=== PATIENT | female | born 1975 | race Caucasian/White ===

== ENCOUNTER 2016-03-30 15:45 | Emergency (ER) | payer OTHER ==
[2016-03-30] MEDS ORDERED: SODIUM CHLORIDE 0.9% 1,000 ML IV STA (16:51)
[2016-03-30] MEDS ORDERED: METOCLOPRAMIDE 5 MG/ML 2 ML VIAL IVP STA (16:51)
[2016-03-30] MEDS ORDERED: diphenhydrAMINE 50 MG/ML 1 ML VIAL IVP STA (16:51)
--- NOTE | 2016-03-30 16:51 | ED ---
General Adult HPI - General Chief complaint: Weakness Stated complaint: Weakness Time Seen by Provider: 03/30/16 16:33 Source: patient, RN notes reviewed Mode of arrival: wheelchair Limitations: no limitations - History of Present Illness Initial comments: 40-year-old female presents to the emergency department with a chief complaint of headache. Patient has a long history of migraines. Patient states she's had a migraine all day today. Patient states that she did not feel like she could come in but she had to come in to have a MRI done and when she is walking and she started to feel her headache get worse and worse she just started to feel such intense pain that almost made her fall down. Patient states that they then put her in a wheelchair and brought her here. Patient states she's having one of her typical migraines. Patient states that it is throbbing in her head. Patient does admit to history of stroke in the past and states that she does have left sided weakness from this. Patient states she does feel weakness to left thigh today but this is chronic there is no new or different changes to that. Patient states her headache is just making her feel very tired. Patient states that she is not currently having any other symptoms at this time. Patient denies any nausea or vomiting with this. Patient states that she was concerned due to the continued symptoms so she thought that she should be seen. Patient denies any recent fever, chills, shortness of breath, chest pain, back pain, abdominal pain, nausea vomiting, numbness or tingling, dysuria or hematuria, constipation or diarrhea, visual changes, or any other current symptoms. - Related Data Home Medications Medication Instructions Recorded Confirmed Butalb/APAP/Caff 50-325-40Mg 1 tab PO Q8H PRN 02/18/16 03/30/16 [Fioricet 50-325-40] Cyclobenzaprine [Flexeril] 10 mg PO HS 02/18/16 03/30/16 HYDROcodone/APAP 7.5-325MG [[place] 1 tab PO TID PRN 02/18/16 03/30/16 7.5-325] Meloxicam [Mobic] 15 mg PO DAILY 03/06/16 03/30/16 Verapamil HCl [Verapamil ER] 120 mg PO DAILY 03/06/16 03/30/16 Gabapentin [Neurontin] 300 mg PO BID PRN 03/30/16 03/30/16 Allergies Allergy/AdvReac Type Severity Reaction Status Date / Time codeine Allergy Unknown Verified 03/30/16 16:35 onion Allergy Unknown Verified 03/30/16 16:35 Review of Systems ROS Statement: Those systems with pertinent positive or pertinent negative responses have been documented in the HPI. ROS Other: All systems not noted in ROS Statement are negative. Past Medical History Past Medical History: CVA/TIA, GERD/Reflux, Osteoarthritis (OA) Additional Past Medical History / Comment(s): DDD. 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 Delgadillo's Esophagus. History of Any Multi-Drug Resistant Organisms: None Reported Past Surgical History: Appendectomy, Cholecystectomy, Hysterectomy, Tubal Ligation Additional Past Surgical History / Comment(s): PAIN CLINIC PROCEDURES Past Anesthesia/Blood Transfusion Reactions: No Reported Reaction Past Psychological History: No Psychological Hx Reported Smoking Status: Current every day smoker Past Alcohol Use History: Occasional Additional Past Alcohol Use History / Comment(s): STARTED SMOKING AGE 18 (1993) SMOKES 1/2 PPD Past Drug Use History: None Reported - Past Family History Mother Family Medical History: No Reported History General Exam - General Exam Comments Initial Comments: General: The patient is awake and alert, in no distress, and does not appear acutely ill. Eye: Pupils are equal, round and reactive to light, extra-ocular movements are intact; there is normal conjunctiva bilaterally. No signs of icterus. Ears, nose, mouth and throat: There are moist mucous membranes. Neck: The neck is supple, there is no tenderness. Cardiovascular: There is a regular rate and rhythm. No murmur, rub or gallop is appreciated. Respiratory: Lungs are clear to auscultation, respirations are non-labored, breath sounds are equal. No wheezes, stridor, rales, or rhonchi. Gastrointestinal: Soft, non-distended, non-tender abdomen without masses or organomegaly noted. There is no rebound or guarding present. No CVA tenderness. Bowel sounds are unremarkable. Back: There is no tenderness to palpation in the midline. There is no obvious deformity. No rashes noted. Musculoskeletal: Normal ROM, no tenderness, There is no pedal edema. There is no calf tenderness or swelling. Sensation intact. Pulses equal bilaterally 2+. Neurological: CN II-XII intact, There are no obvious motor or sensory deficits. Coordination appears grossly intact. Speech is normal. Left sided weakness which is chronic mild Skin: Skin is warm and dry and no rashes or lesions are noted. Psychiatric: Cooperative, appropriate mood & affect, normal judgment. Limitations: no limitations Course Vital Signs 03/30/16 03/30/16 15:54 16:51 Temperature 98.3 F 98.6 F Pulse Rate 115 H 95 Respiratory 18 16 Rate Blood Pressure 141/91 147/92 O2 Sat by Pulse 98 97 Oximetry Medical Decision Making - Medical Decision Making 40-year-old female presents emergency Department chief complaint of headache. Patient has a history migraine states is this is much like normal migraines which is making her feel weak and tired. Patient states that she is feeling better with the medication time. Patient MRI WAS REVIEWED THAT DID NOT SHOW ANY NEW FINDINGS IN THE BRAIN WELL HERNIATION IN THE NECK. PATIENT WAS INFORMED OF THIS RESULT. SHE STATES SHE SAW HER AND SHE IS READY NORMAL. HOWEVER QUESTIONS HAVE BEEN ANSWERED. SHE WILL BE DISCHARGED HOME. We did discuss return parameters and follow-up. Patient stated she understood. Disposition Clinical Impression: Migraine Disposition: HOME SELF-CARE Condition: Stable Instructions: Acute Headache (ED) Additional Instructions: Please use medication as discussed. Please follow up with family doctor if symptoms have not improved over the next two days. Please return to the emergency room if your symptoms increase or worsen or for any other concerns. Referrals: Malena Milner MD [Primary Care Provider] - 1-2 days Time of Disposition: 17:52
[2016-03-30 16:52] VITALS: RESP 16
[2016-03-30 17:53] VITALS: BP 118/74; PULSE 83; TEMP 98.2
== END 2016-03-30 18:03 | disposition home or self-care (01) ==
LOC: EC 15:45
DX: G43.909 Migraine, unspecified, not intractable, without status migrainosus (principal); I69.354 Hemiplegia and hemiparesis following cerebral infarction affecting left non-dominant side; M19.90 Unspecified osteoarthritis, unspecified site; F17.200 Nicotine dependence, unspecified, uncomplicated; Z79.1 Long term (current) use of non-steroidal anti-inflammatories (NSAID); Z79.899 Other long term (current) drug therapy; Z88.5 Allergy status to narcotic agent
CPT/HCPCS: 99284; 96374; 96375; 96361; J1200; J2765; 70553; 72156

== ENCOUNTER → 2016-03-30 | Outpatient (CLI) | payer OTHER ==
--- NOTE | 2016-03-30 17:33 | MR ---
History vision changes. Neck pain. History of MS. Comparison 12/10/2015 and 06/05/2015. TECHNIQUE: Multiplanar multi echo imaging of the brain was performed without and subsequently with intravenous c ontrast. The contrast was MultiHance 15 mL. FINDINGS: There is moderate mucosal thickening in the maxillary ethmoid and frontal sinuses. The fritz and white matter structures have fairly normal signal pattern. There is no evidence of cerebral edema. Corpus callosum appears normal. Brainstem is intact. Sella turcica appears normal. Contrast images show no p athologic enhancement. Pituitary stalk and optic chiasm appear normal. Ventricles of normal size. CONCLUSION: Negative MR scan of the brain. No evidence of demyelinating disease. No adverse change compared to . There is moderate sinusitis noted. This appears significantly worse than old exam of 12/10/19 16. MR cervical spine TECHNIQUE: Multiplanar multi echo imaging of the cervical spine was performed without and with IV contrast. IV c ontrast was MultiHance 15 mL. FINDINGS: The cervical vertebra have normal spacing and alignment. There are small posterior disc herniations a t C4-5 C5-6 C6-7 without significant impingement on the spinal canal. Cervical spinal cord has normal signal pattern. There is no evidence of edema. Brainstem appears normal. There is no spinal stenosis . I see no bony destructive process. There is no evidence of a cervical cord mass. There is no pathologic enhancement. CONCLUSION: Small posterior disc herniations at C4-5 C5-6 C6-7. The largest is at C6-7 on the left side. No signi ficant impingement on the cervical cord and neural foramina. There is no adverse change compared to o ld MR scan of 06/05/2015. No evidence of demyelinating disease.
== END | disposition home or self-care (01) ==
LOC: RADMRIMAIN 14:29
PROVIDERS: ATTEND Psychiatry & Neurology Pain Medicine
DX: M50.221 Other cervical disc displacement at C4-C5 level (principal); M50.222 Other cervical disc displacement at C5-C6 level; M50.23 Other cervical disc displacement, cervicothoracic region; H53.8 Other visual disturbances
CPT/HCPCS: 70553; 72156; A9577

== ENCOUNTER 2016-05-13 18:18 | Emergency (ER) | payer OTHER ==
[2016-05-13 18:22] VITALS: BP 153/73; PULSE 112; RESP 16; TEMP 97.7
[2016-05-13] MEDS ORDERED: LIDOCAINE 5% PATCH TOPICAL STA (18:38)
[2016-05-13] MEDS ORDERED: MORPHINE SULFATE 4 MG/ML SYRINGE IM STA (18:38)
[2016-05-13] MEDS ORDERED: DIAZEPAM 5 MG TAB PO STA (18:38)
[2016-05-13] MEDS ORDERED: KETOROLAC 30 MG/ML 1 ML VIAL IM STA (18:38)
--- NOTE | 2016-05-13 18:43 | ED ---
Back Pain HPI - General Chief Complaint: Back Pain/Injury Stated Complaint: LEFT SIDE/BACK PAIN, LEFT LEG PROBLEM Time Seen by Provider: 05/13/16 18:23 Source: patient Limitations: no limitations - History of Present Illness Initial Comments: Patient is a 40-year-old female with history of herniated disc presenting with acute on chronic back pain. Patient states she was sitting on a couch 2 hours prior to arrival when she developed sudden severe left mid thoracic back pain. Patient took her Woodson 7.5 mg 4 hours prior to onset of pain as which she usually does for her chronic back pain. Patient states pain is better with rest and worse with movement. Patient states pain radiates from her back down to her left leg. Patient denies any saddle anesthesia. Patient denies loss of bowel or bladder. Patient denies any numbness. Patient denies fever, chills, chest pain, shortness breath, nausea, vomiting, diarrhea. - Related Data Home Medications Medication Instructions Recorded Confirmed Butalb/APAP/Caff 50-325-40Mg 1 tab PO Q8H PRN 02/18/16 03/30/16 [Fioricet 50-325-40] Cyclobenzaprine [Flexeril] 10 mg PO HS 02/18/16 03/30/16 HYDROcodone/APAP 7.5-325MG [[place] 1 tab PO TID PRN 02/18/16 03/30/16 7.5-325] Meloxicam [Mobic] 15 mg PO DAILY 03/06/16 03/30/16 Verapamil HCl [Verapamil ER] 120 mg PO DAILY 03/06/16 03/30/16 Gabapentin [Neurontin] 300 mg PO BID PRN 03/30/16 03/30/16 Previous Rx's Medication Instructions Recorded Lidocaine 5% Patch [Lidoderm 5% 1 patch TOPICAL DAILY #3 patch 05/13/16 Patch] Allergies Allergy/AdvReac Type Severity Reaction Status Date / Time codeine Allergy Unknown Verified 05/13/16 18:21 onion Allergy Unknown Verified 05/13/16 18:21 Review of Systems ROS Statement: Those systems with pertinent positive or pertinent negative responses have been documented in the HPI. Constitutional: No fever and no chills. HENT: No congestion, no rhinorrhea and no sore throat. Eyes: No discharge and no redness. Respiratory: No cough and no shortness of breath. Cardiovascular: No chest pain and no palpitations. Gastrointestinal: No nausea, no vomiting, no abdominal pain and no diarrhea. Genitourinary: No dysuria and no hematuria. Musculoskeletal: Positive back pain and positive myalgias. Skin: No pallor and no rash. Neurological: No dizziness and No headaches. ROS Other: All systems not noted in ROS Statement are negative. Past Medical History Past Medical History: CVA/TIA, GERD/Reflux, Osteoarthritis (OA) Additional Past Medical History / Comment(s): DDD. 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 Delgadillo's Esophagus. History of Any Multi-Drug Resistant Organisms: None Reported Past Surgical History: Appendectomy, Cholecystectomy, Hysterectomy, Tubal Ligation Additional Past Surgical History / Comment(s): PAIN CLINIC PROCEDURES Past Anesthesia/Blood Transfusion Reactions: No Reported Reaction Past Psychological History: No Psychological Hx Reported Smoking Status: Current every day smoker Past Alcohol Use History: Occasional Additional Past Alcohol Use History / Comment(s): STARTED SMOKING AGE 18 (1993) SMOKES 1/2 PPD Past Drug Use History: None Reported - Past Family History Mother Family Medical History: No Reported History General Exam - General Exam Comments Initial Comments: Constitutional: Patient appears well-developed and well-nourished. Mild distress. Tearful Head: Normocephalic and atraumatic. Eyes: Conjunctivae and EOM are normal. Right eye exhibits no discharge. Left eye exhibits no discharge. No scleral icterus. Neck: Normal range of motion. Neck supple. Cardiovascular: Normal rate and regular rhythm with compared to triage vital signs. No murmur heard. Pulmonary/Chest: Effort normal and breath sounds normal. No respiratory distress. No wheezes. Abdominal: Soft. No distension. There is no tenderness. There is no rebound and no guarding. Musculoskeletal: Patient with point tenderness to left thoracic musculature around T7. Tenderness worse with palpation. No rash. Negative straight leg test bilaterally. Normal muscle strength of bilateral lower extremities. No saddle anesthesia. Distal sensation and motor intact. Distal pulses present. Neurological: Patient alert and oriented to person, place, and time. Skin: Skin is warm and dry. Not diaphoretic. Nursing notes and vitals reviewed. Limitations: no limitations Course Vital Signs 05/13/16 18:19 Temperature 97.7 F Pulse Rate 112 H Respiratory 16 Rate Blood Pressure 153/73 O2 Sat by Pulse 95 Oximetry - Reevaluation(s) Reevaluation #1: 05/13/16 19:14 Patient feeling better mainly after lidocaine patch. She was also given morphine, Toradol and Valium by mouth Medical Decision Making - Medical Decision Making Patient's a 40-year-old female with acute on chronic back pain. Patient with point tenderness to musculature of left thoracic region around T7. Negative for incontinence of bowel or bladder or saddle anesthesia. No trauma. Patient was given morphine or milligrams IM, Toradol 50 mg IM, Valium 5 mg by mouth with resolution of pain mainly with a lidocaine patch. She is requesting prescription for lidocaine patch which was provided. Prior to discharge, patient was resting comfortably in bed. Course of stay improved. Denies pain. Discussed physical exam and diagnostic tests with patient. Questions answered and patient is agreeable to discharge with close follow up with Primary Care Physician. Instructed to return to Emergency Department if symptoms worsen. Disposition Clinical Impression: Thoracic back pain, Myalgia Disposition: HOME SELF-CARE Condition: Good Instructions: Musculoskeletal Pain (ED) Prescriptions: Lidocaine 5% Patch [Lidoderm 5% Patch] 1 patch TOPICAL DAILY #3 patch Referrals: Malena Milner MD [Primary Care Provider] - 1-2 days
== END 2016-05-13 19:18 | disposition home or self-care (01) ==
LOC: EC 18:18
DX: M54.6 Pain in thoracic spine (principal); G89.29 Other chronic pain; M79.1 Myalgia; Z79.899 Other long term (current) drug therapy; Z88.5 Allergy status to narcotic agent; Z87.891 Personal history of nicotine dependence
CPT/HCPCS: 99283; 96372; J2270; J1885

== ENCOUNTER → 2016-05-18 | Outpatient (CLI) | payer OTHER ==
--- NOTE | 2016-05-18 15:26 | XR ---
EXAMINATION TYPE: XR thoracic spine complete DATE OF EXAM ORDERED: 05/18/2016 2:24 PM HISTORY: Pain in thoracic spine M54.6. COMPARISON: None. FINDINGS: Vertebral body height and alignment are maintained. No fractures are seen. There is minima l hypertrophic spondylosis in the upper dorsal spine. Paraspinal soft tissues are normal. The pedicle s are intact. IMPRESSION: 1. NO ACUTE OSSEOUS LESION. 2. MINIMAL DEGENERATIVE CHANGE.
== END | disposition home or self-care (01) ==
LOC: RADXRMAIN 14:02
PROVIDERS: ATTEND Nurse Practitioner Acute Care
DX: M47.814 Spondylosis without myelopathy or radiculopathy, thoracic region (principal)
CPT/HCPCS: 72072

== ENCOUNTER 2016-05-20 19:09 | Observation (INO) | payer OTHER ==
[2016-05-20] MEDS ORDERED: SODIUM CHLORIDE 0.9% 1,000 ML IV STA (19:56)
--- NOTE | 2016-05-20 20:04 | ED ---
Syncope HPI - General Chief Complaint: Syncope Stated Complaint: Syncope Time Seen by Provider: 05/20/16 19:47 Source: patient, EMS Mode of arrival: EMS Limitations: no limitations - History of Present Illness Initial Comments: 40-year-old female was at home in the kitchen when she suddenly became dizzy and she was caught and then helped to the ground. She did not awaken until picked up by EMS this occurred at 635 when the call went out to 911. She has posterior headache before this started was having quite a bit of pain. She has some mild weakness on left side is had TIAs in the past she says is a bit worse. No chest pain shortness breath nausea vomiting diarrhea. No history of seizures and there is no description of seizure activity. - Related Data Home Medications Medication Instructions Recorded Confirmed Butalb/APAP/Caff 50-325-40Mg 1 tab PO Q8H PRN 02/18/16 05/20/16 [Fioricet 50-325-40] Cyclobenzaprine [Flexeril] 10 mg PO HS 02/18/16 05/20/16 HYDROcodone/APAP 7.5-325MG [[place] 1 tab PO TID PRN 02/18/16 05/20/16 7.5-325] Meloxicam [Mobic] 15 mg PO DAILY 03/06/16 05/20/16 DULoxetine HCL [Cymbalta] 30 mg PO DAILY 05/20/16 05/20/16 Ketoprofen [Orudis] 50 mg PO TID 05/20/16 05/20/16 Allergies Allergy/AdvReac Type Severity Reaction Status Date / Time codeine Allergy Unknown Verified 05/20/16 19:39 onion Allergy Unknown Verified 05/20/16 19:39 Review of Systems ROS Statement: Those systems with pertinent positive or pertinent negative responses have been documented in the HPI. ROS Other: All systems not noted in ROS Statement are negative. Constitutional: Denies: fever ENT: Denies: ear pain Respiratory: Denies: cough Cardiovascular: Denies: chest pain Gastrointestinal: Denies: abdominal pain, nausea, vomiting, diarrhea Genitourinary: Denies: urgency, frequency Skin: Denies: rash Neurological: Denies: headache Psychiatric: Denies: anxiety, depression Hematological/Lymphatic: Denies: easy bleeding, easy bruising Past Medical History Past Medical History: CVA/TIA, GERD/Reflux, Osteoarthritis (OA) Additional Past Medical History / Comment(s): DDD. 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 Delgadillo's Esophagus. History of Any Multi-Drug Resistant Organisms: None Reported Past Surgical History: Appendectomy, Cholecystectomy, Hysterectomy, Tubal Ligation Additional Past Surgical History / Comment(s): PAIN CLINIC PROCEDURES Past Anesthesia/Blood Transfusion Reactions: No Reported Reaction Past Psychological History: No Psychological Hx Reported Smoking Status: Current every day smoker Past Alcohol Use History: Occasional Additional Past Alcohol Use History / Comment(s): STARTED SMOKING AGE 18 (1993) SMOKES 1/2 PPD Past Drug Use History: None Reported - Past Family History Mother Family Medical History: No Reported History General Exam Limitations: no limitations General appearance: alert Head exam: Present: atraumatic Eye exam: Present: PERRL, EOMI ENT exam: Present: normal oropharynx Neck exam: Absent: tenderness Respiratory exam: Present: normal lung sounds bilaterally Cardiovascular Exam: Present: regular rate, normal heart sounds GI/Abdominal exam: Present: soft. 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 movements the left hand are also within the right.) Psychiatric exam: Present: normal affect, normal mood Skin exam: Present: warm, dry Course Vital Signs 05/20/16 05/20/16 19:09 20:50 Temperature 98.9 F Pulse Rate 86 72 Respiratory 18 18 Rate Blood Pressure 147/88 137/87 O2 Sat by Pulse 98 100 Oximetry Medical Decision Making - Medical Decision Making Admit to Dr Mancera, discussed, patient most likely has complex migraine cannot exclude TIA or limited ischemic but does not qualify for tpa - Lab Data Result diagrams: 05/20/16 19:15 05/20/16 19:15 Lab Results 05/20/16 05/20/16 05/20/16 Range/Units 19:15 19:15 19:15 WBC 13.8 H (3.8-10.6) k/uL RBC 4.43 (3.80-5.40) m/uL Hgb 15.0 (11.4-16.0) gm/dL Hct 43.2 (34.0-46.0) % MCV 97.6 (80.0-100.0) fL MCH 33.9 (25.0-35.0) pg MCHC 34.7 (31.0-37.0) g/dL RDW 12.9 (11.5-15.5) % Plt Count 189 (150-450) k/uL Neutrophils % 69 % Lymphocytes % 19 % Monocytes % 3 % Eosinophils % 6 % Basophils % 1 % Neutrophils # 9.5 H (1.3-7.7) k/uL Lymphocytes # 2.7 (1.0-4.8) k/uL Monocytes # 0.4 (0-1.0) k/uL Eosinophils # 0.8 H (0-0.7) k/uL Basophils # 0.1 (0-0.2) k/uL PT (9.0-12.0) sec INR (<1.1) APTT (22.0-30.0) sec Sodium 138 (137-145) mmol/L Potassium 3.9 (3.5-5.1) mmol/L Chloride 104 (98-107) mmol/L Carbon Dioxide 24 (22-30) mmol/L Anion Gap 10 mmol/L BUN 8 (7-17) mg/dL Creatinine 0.63 (0.52-1.04) mg/dL Est GFR (MDRD) Af Amer >60 (>60 ml/min/1.73 sqM) Est GFR (MDRD) Non-Af >60 (>60 ml/min/1.73 sqM) Glucose 79 (74-99) mg/dL Calcium 9.6 (8.4-10.2) mg/dL Total Bilirubin 0.6 (0.2-1.3) mg/dL AST 20 (14-36) U/L ALT 29 (9-52) U/L Alkaline Phosphatase 65 (38-126) U/L Total Creatine Kinase 65 (30-135) U/L CK-MB (CK-2) 0.2 (0.0-2.4) ng/mL CK-MB (CK-2) Rel Index 0.3 Troponin I <0.012 (0.000-0.034) ng/mL Total Protein 7.2 (6.3-8.2) g/dL Albumin 4.2 (3.5-5.0) g/dL Urine Color Urine Appearance (Clear) Urine pH (5.0-8.0) Ur Specific [place] (1.001-1.035) Urine Protein (Negative) Urine Glucose (UA) (Negative) Urine Ketones (Negative) Urine Blood (Negative) Urine Nitrate (Negative) Urine Bilirubin (Negative) Urine Urobilinogen (<2.0) mg/dL Ur Leukocyte Esterase (Negative) 05/20/16 05/20/16 Range/Units 19:15 20:50 WBC (3.8-10.6) k/uL RBC (3.80-5.40) m/uL Hgb (11.4-16.0) gm/dL Hct (34.0-46.0) % MCV (80.0-100.0) fL MCH (25.0-35.0) pg MCHC (31.0-37.0) g/dL RDW (11.5-15.5) % Plt Count (150-450) k/uL Neutrophils % % Lymphocytes % % Monocytes % % Eosinophils % % Basophils % % Neutrophils # (1.3-7.7) k/uL Lymphocytes # (1.0-4.8) k/uL Monocytes # (0-1.0) k/uL Eosinophils # (0-0.7) k/uL Basophils # (0-0.2) k/uL PT 10.5 (9.0-12.0) sec INR 1.0 (<1.1) APTT 24.4 (22.0-30.0) sec Sodium (137-145) mmol/L Potassium (3.5-5.1) mmol/L Chloride (98-107) mmol/L Carbon Dioxide (22-30) mmol/L Anion Gap mmol/L BUN (7-17) mg/dL Creatinine (0.52-1.04) mg/dL Est GFR (MDRD) Af Amer (>60 ml/min/1.73 sqM) Est GFR (MDRD) Non-Af (>60 ml/min/1.73 sqM) Glucose (74-99) mg/dL Calcium (8.4-10.2) mg/dL Total Bilirubin (0.2-1.3) mg/dL AST (14-36) U/L ALT (9-52) U/L Alkaline Phosphatase (38-126) U/L Total Creatine Kinase (30-135) U/L CK-MB (CK-2) (0.0-2.4) ng/mL CK-MB (CK-2) Rel Index Troponin I (0.000-0.034) ng/mL Total Protein (6.3-8.2) g/dL Albumin (3.5-5.0) g/dL Urine Color Light Yellow Urine Appearance Clear (Clear) Urine pH 6.0 (5.0-8.0) Ur Specific [place] 1.003 (1.001-1.035) Urine Protein Negative (Negative) Urine Glucose (UA) Negative (Negative) Urine Ketones Negative (Negative) Urine Blood Negative (Negative) Urine Nitrate Negative (Negative) Urine Bilirubin Negative (Negative) Urine Urobilinogen <2.0 (<2.0) mg/dL Ur Leukocyte Esterase Negative (Negative) - EKG Data -: EKG Interpreted by Me 05/20/16 20:28 EKG 05/20/2016 1915 ventricular rate 83 bpm, MD interval 136 ms, QRS duration, QT interval 374 ms normal sinus rhythm normal ECG Disposition Clinical Impression: Syncope Disposition: ADMITTED IP TO THIS [facility] Condition: Good Time of Disposition: 21:58
[2016-05-20 20:10] LABS: Basophils # (A) 0.1 k/uL (0-0.2); Basophils % (A) 1 %; CH 33.7; CHCM 34.8; Eosinophils # (A) 0.8 k/uL (0-0.7); Eosinophils % (A) 6 %; HCT 43.2 % (34.0-46.0); HDW 2.49; Luc # (Auto) 0.21; Luc % (Auto) 2; Lymphocytes # (A) 2.7 k/uL (1.0-4.8); Lymphocytes % (A) 19 %; MCH 33.9 pg (25.0-35.0); MCHC 34.7 g/dL (31.0-37.0); MCV 97.6 fL (80.0-100.0); Mean Platelet Volume 9.6; Monocytes # (A) 0.4 k/uL (0-1.0); Monocytes % (A) 3 %; Neutrophils # (A) 9.5 k/uL (1.3-7.7); Neutrophils % (A) 69 %; RBC 4.43 m/uL (3.80-5.40); RDW 12.9 % (11.5-15.5); WBC 13.8 k/uL (3.8-10.6); WBC (Perox) 12.71
[2016-05-20 20:18] LABS: Partial Thromboplastin Time 24.4 sec (22.0-30.0); Prothrombin Time 10.5 sec (9.0-12.0)
--- NOTE | 2016-05-20 20:29 | CT ---
EXAMINATION TYPE: CT brain wo con DATE OF EXAM: 05/20/2016 8:12 PM COMPARISON: 12/09/2015 HISTORY: 40-year-old female complains of multiple syncopal episodes today. TECHNIQUE: Examination was done in axial plane without intravenous contrast. Coronal and sagittal r econstructions performed. CT DLP: 845 mGycm Automated exposure control for dose reduction was used. FINDINGS: Excessive beam hardening artifact at the inferior right middle cranial fossa and lateral right import export manager ior cranial fossa. Allowing for these limitations, there is no evidence of acute intracranial hemorr aline, acute ischemic changes, mass, mass-effect, or extra-axial fluid collection. There is no efface ment of cerebral sulci or basal subarachnoid cisterns. There is no hydrocephalus. There is no midli ne shift. Curiel-white matter distinction is preserved. Moderate mucosal thickening right ethmoid air cells. Mastoid air cells well pneumatized. Orbits and g lobes are intact. IMPRESSION: No acute intracranial abnormality seen. Moderate chronic right ethmoid sinus disease, new from prior.
--- NOTE | 2016-05-20 20:33 | XR ---
EXAMINATION TYPE: XR chest 2V DATE OF EXAM: 05/20/2016 8:27 PM COMPARISON: 12/09/2015 HISTORY: 40-year-old female with syncope and left-sided chest pain TECHNIQUE: PA and lateral views FINDINGS: The cardiomediastinal silhouette, aorta, and pulmonary vasculature are within normal limits. Mild int erstitial prominence is unchanged. Lungs and pleural spaces are clear. IMPRESSION: Chronic changes without acute cardiopulmonary process.
[2016-05-20] MEDS ORDERED: HYDROmorphone 1 MG/ML 1 ML SYRINGE IVP STA ×2 (20:38→21:48)
[2016-05-20 20:40] LABS: ALT 29 U/L (9-52); AST 20 U/L (14-36); Alkaline Phosphatase 65 U/L (38-126); Anion Gap 10 mmol/L; Blood Urea Nitrogen 8 mg/dL (7-17); Calcium 9.6 mg/dL (8.4-10.2); Carbon Dioxide 24 mmol/L (22-30); Chloride 104 mmol/L (98-107); Glucose 79 mg/dL (74-99); Non-African American GFR(MDRD) >60 (>60 ml/min/1.73 sqM); Potassium 3.9 mmol/L (3.5-5.1); Sodium 138 mmol/L (137-145); Total Bilirubin 0.6 mg/dL (0.2-1.3); Total Protein 7.2 g/dL (6.3-8.2)
[2016-05-20 20:56] LABS: Creatine Kinase 65 U/L (30-135)
[2016-05-20 21:02] LABS: Appearance,Urine Clear (Clear); Bilirubin,Urine Negative (Negative); Glucose,Urine (UA) Negative (Negative); Ketones,Urine Negative (Negative); Leukocyte Esterase,Urine Negative (Negative); Nitrite,Urine Negative (Negative); Protein,Urine Negative (Negative); Specific Gravity,Urine 1.003 (1.001-1.035); UA Billing (MACRO vs. MICRO) CHEM; Urobilinogen,Urine <2.0 mg/dL (<2.0)
[2016-05-20 21:11] LABS: Creatine Kinase MB 0.2 ng/mL (0.0-2.4); Troponin I <0.012 ng/mL (0.000-0.034)
[2016-05-20] MEDS ORDERED: NALOXONE 0.4 MG/ML 1 ML VIAL IV PRN (21:59)
[2016-05-20] MEDS ORDERED: SODIUM CHLORIDE 0.45% 1,000 ML IV SCH (22:00)
[2016-05-20] MEDS ORDERED: HYDROmorphone 1 MG/ML 1 ML SYRINGE IVP PRN (22:03)
[2016-05-20] MEDS ORDERED: ONDANSETRON 4 MG/2 ML VIAL IVP STA (22:51)
[2016-05-20 23:34] VITALS: BMI 29.9
[2016-05-20] MEDS ORDERED: CYCLOBENZAPRINE 10 MG TAB PO SCH (23:45)
[2016-05-20] MEDS: BUTALB/APAP/CAFF 50-325-40MG TAB PO PRN (23:50)
[2016-05-21] MEDS: HYDROcodone/APAP 7.5-325MG 1 EACH TAB PO PRN ×2 (01:03→12:22)
[2016-05-21 06:14] LABS: Basophils # (A) 0.1 k/uL (0-0.2); Basophils % (A) 1 %; CH 33.9; CHCM 34.1; Eosinophils # (A) 0.6 k/uL (0-0.7); Eosinophils % (A) 9 %; HCT 39.2 % (34.0-46.0); HDW 2.49; HGB 13.2 gm/dL (11.4-16.0); Luc # (Auto) 0.12; Luc % (Auto) 2; Lymphocytes # (A) 2.1 k/uL (1.0-4.8); Lymphocytes % (A) 31 %; MCH 33.6 pg (25.0-35.0); MCHC 33.7 g/dL (31.0-37.0); MCV 99.9 fL (80.0-100.0); Mean Platelet Volume 9.9; Monocytes # (A) 0.4 k/uL (0-1.0); Monocytes % (A) 5 %; Neutrophils # (A) 3.5 k/uL (1.3-7.7); Neutrophils % (A) 52 %; RBC 3.92 m/uL (3.80-5.40); RDW 13.1 % (11.5-15.5); WBC 6.8 k/uL (3.8-10.6); WBC (Perox) 7.27
[2016-05-21 06:16] LABS: Anion Gap 7 mmol/L; Blood Urea Nitrogen 10 mg/dL (7-17); Calcium 8.4 mg/dL (8.4-10.2); Carbon Dioxide 26 mmol/L (22-30); Chloride 106 mmol/L (98-107); Glucose 109 mg/dL (74-99); Non-African American GFR(MDRD) >60 (>60 ml/min/1.73 sqM); Potassium 4.1 mmol/L (3.5-5.1); Sodium 139 mmol/L (137-145)
[2016-05-21] MEDS ORDERED: MELOXICAM 7.5 MG TAB PO SCH (09:00)
[2016-05-21] MEDS ORDERED: ASPIRIN 81 MG CHEW PO SCH (09:00)
[2016-05-21] MEDS ORDERED: DULoxetine HCL 30 MG CAPSULE.DR PO SCH (09:00)
[2016-05-21] MEDS: BUTALB/APAP/CAFF 50-325-40MG TAB PO PRN (12:22)
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
[2016-05-21 15:07] VITALS: BP 111/66; PULSE 64; RESP 16; TEMP 98.7
[2016-05-21] MEDS ORDERED: NICOTINE 14MG/24HR PATCH TRANSDERM SCH (15:45)
[2016-05-21] MEDS ORDERED: ENOXAPARIN 40 MG/0.4 ML SYRINGE SQ SCH (15:45)
[2016-05-21] MEDS ORDERED: VERAPAMIL SR 120 MG TABLET.ER PO SCH ×2 (15:47→17:00)
--- NOTE | 2016-05-21 17:12 | HP ---
DATE OF ADMISSION: 05/20/2016 PRESENTING COMPLAINT: 40-year-old patient of Dr. Malena Milner who yesterday was not feeling well, has got a headache, took a Fioricet, ( ) kitchen was feeling drowsy, patient's was there and then patient passed out. No seizure activity was noted. No tongue biting or incontinence. No arrhythmia noted. The patient does feel drowsy, often times tired, does not sleep well, oftentimes tired. Pain management is being followed by Dr. Laura. Patient was here on 12/10/2015, at the time of TIA had a normal MRI, normal EEG and normal carotids. Patient's is at the bedside. REVIEW OF SYSTEMS: CONSTITUTIONAL: Tired. HEENT: Headache, improved. RESPIRATORY: None. CARDIOVASCULAR: None. GASTROINTESTINAL: None. GENITOURINARY: None. MUSCULOSKELETAL: Chronic pain in the back. Dermatological: None. Hematological: None. LYMPHATIC: None. PSYCHIATRY: Some anxiety. NEUROLOGICAL: No focal weakness, otherwise as above. Past medical history of possible transient ischemic attack, osteoarthritis, migraines, questionable Delgadillo's esophagus. PAST SURGICAL HISTORY: Appendectomy, cholecystectomy, hysterectomy, tubal ligation, pain clinic procedures. SOCIAL HISTORY: The patient has been smoking 1/2 pack for 23 years. Alcohol occasionally. . Denies use of recreational drugs. FAMILY HISTORY: Reviewed, noncontributory to the presentation. HOME MEDICATIONS: 1. Mobic 15 mg p.o. daily. 2. Orudis 50 mg p.o. t.i.d. 3. [place] 7.5 1 tablets p.o. t.i.d. p.r.n. 4. Cymbalta 30 mg p.o. daily. 5. ( ) 10 mg p.o. q.h.s. 6. Fioricet one table q.8 p.r.n. ALLERGIES TO CODEINE, IODINE, ONION. On examination vital signs on presentation: Temperature 98.9, pulse 86, respiration 18, blood pressure 147/88, pulse ox 98% on room air. GENERAL APPEARANCE: Average build, sitting up, tired appearing. EYES: Pupils equal. Conjunctivae normal. HEENT: External appearance of nose and ears normal. Oral cavity normal. NECK: JVD not raised. Mass not palpable. RESPIRATORY: Effort normal. Lungs are clear. CARDIOVASCULAR: First and second sounds normal. No edema. ABDOMEN: Soft, nontender. Liver and spleen not palpable. LYMPHATIC: No lymph nodes palpable in the neck and axilla. PSYCHIATRY: Alert and oriented x3. Mood and affect anxious appearing. NEUROLOGICAL: Pupils equal. Cranial nerves grossly intact. Power and sensation grossly intact. INVESTIGATIONS: White count 7.8, hemoglobin 15, potassium 3.9. BUN and creatinine are normal. UA negative. EKG normal sinus rhythm. CT scan of the brain nil acute. Chest x-ray unremarkable. ASSESSMENT: 1. This is a patient who has not been feeling well, feels tired all the time, does not sleep well, does take some chronic medications. Appears to be probably heavily sleep deprived and on top of these pain medications may be precipitating the syncopal attack. 2. Chronic pain syndrome with arthritis in the joints. 3. Chronic nicotine dependence. 4. Bipolar disorder, controlled. PLAN: Patient had a rather extensive neurological work-up just 4 months ago. This could be complex migraines. Neurology was consulted who started the patient on verapamil. Care was discussed with the patient's and Dr. Laura who will address the patient's pain medications. The patient advised against smoking, given a nicotine patch.
[2016-05-21] MEDS ORDERED: CYCLOBENZAPRINE 10 MG TAB PO SCH (21:00)
[2016-05-22] MEDS ORDERED: VERAPAMIL SR 120 MG TABLET.ER PO SCH (09:00)
--- NOTE | 2016-05-22 17:43 | DS ---
DATE OF ADMISSION: 05/20/2016 DATE OF DISCHARGE: 05/21/2016 FINAL DIAGNOSES: 1. Status migrainous. 2. Chronic pain syndrome. 3. Chronic nicotine dependence. 4. Bipolar disorder. 5. Sleep deprivation. HOSPITAL COURSE: This patient presented after having a headache, taking medicine, passing out. Patient was also sleep-deprived. Patient was seen by Dr. Laura from Neurology, who put her on Verapamil. He is also managing her pain medications. On examination, lungs have decreased breath sounds. CARDIOVASCULAR: First and second sounds normal. No focal findings. Patient recently had a workup done, including MRI, carotid, 2-D echo that was all negative. DISCHARGE MEDICATIONS: 1. Fioricet 1 tablet q.8 p.r.n. 2. Flexeril 10 mg p.o. at bedtime. 3. [place] 7.5 one tablet t.i.d. p.r.n. 4. Cymbalta 30 mg p.o. daily. 5. Orudis 50 mg p.o. t.i.d. 6. Nicotine patch. 7. Isoptin SR 120 mg daily. Patient's meloxicam has been discontinued. Follow up with Dr. Malena Milner in 2 days. Follow up with Dr. Laura in one week.
== END 2016-05-21 20:11 | disposition home or self-care (01) ==
LOC: EC 19:09 → 6SEL 21:59
PROVIDERS: ADMIT Hospitalist; ATTEND Hospitalist
DX: G43.401 Hemiplegic migraine, not intractable, with status migrainosus (principal); G89.4 Chronic pain syndrome; M54.9 Dorsalgia, unspecified; F17.200 Nicotine dependence, unspecified, uncomplicated; F31.9 Bipolar disorder, unspecified; Z72.820 Sleep deprivation; M19.90 Unspecified osteoarthritis, unspecified site; F41.9 Anxiety disorder, unspecified; Z79.1 Long term (current) use of non-steroidal anti-inflammatories (NSAID); Z88.3 Allergy status to other anti-infective agents; Z88.5 Allergy status to narcotic agent; Z91.018 Allergy to other foods; Z79.899 Other long term (current) drug therapy; Z86.73 Personal history of transient ischemic attack (TIA), and cerebral infarction without residual deficits
CPT/HCPCS: 96374; 96376; 96375; 96361 ×2; 99285; 36415; 93005; 80053; 80048; 82550; 82553; 84484; 85025 ×2; 85610; 85730; 81003; 71020; 70450; G0378 ×2; S4990; J2405; J1650; J1170 ×2; 96372

== ENCOUNTER → 2016-06-01 | Outpatient (CLI) | payer OTHER ==
--- NOTE | 2016-06-01 18:49 | US ---
EXAMINATION TYPE: US carotid duplex BILAT DATE OF EXAM: 06/01/2016 6:20 PM COMPARISON: Prior in PACS CLINICAL HISTORY: R55 Syncope. EXAM MEASUREMENTS: RIGHT: Peak Systolic Velocity (PSV) cm/sec ----- Right CCA: 81.3 ----- Right ICA: 94.3 ----- Right ECA: 91.4 ICA/CCA ratio: 1.2 RIGHT: End Diastole cm/sec ----- Right CCA: 21.7 ----- Right ICA: 46.4 ----- Right ECA: 23.1 LEFT: Peak Systolic Velocity (PSV) cm/sec ----- Left CCA: 91.1 ----- Left ICA: 67.7 ----- Left ECA: 66.9 ICA/CCA ratio: 0.7 LEFT: End Diastole cm/sec ----- Left CCA: 31.6 ----- Left ICA: 25.7 ----- Left ECA: 13.1 VERTEBRALS (direction of flow): Right Vertebral: Antegrade Left Vertebral: Antegrade TECHNOLOGIST IMPRESSION: Mild amount of plaque visualized bilaterally, no significant velocity eleva tions IMPRESSION: There is antegrade flow in the vertebral arteries. The images and measurements suggest 2 0% stenosis in both internal carotid arteries. There is a no definite adverse change compared to exam. Criteria for Assigning % of Stenosis / Diameter reduction (Estimation based on the indirect measurements of the internal carotid artery velocities (ICA PSV). 1. Normal (no stenosis)=ICA PSV < 125 cm/s: ratio < 2.0: ICA EDV<40 cm/s. 2. Less than 50% stenosis=ICA PSV < 125 cm/s: ratio < 2.0: ICA EDV<40 cm/s. 3. 50 to 69% stenosis=ICA PSV of 125 to 230 cm/s: ration 2.0 ? 4.0: ICA EDV 40-100 cm/s. 4. Greater than 70% stenosis to near occlusion= ICA PSV > 230 cm/s: ratio > 4.0: ICA EDV > 100 cm/s. 5. Near occlusion= ICA PSV velocities may be low or undetectable: variable ratio and ICA EDV. 6. Total occlusion=unable to detect flow.
== END | disposition home or self-care (01) ==
LOC: RADUSMAIN 17:46
PROVIDERS: ATTEND Psychiatry & Neurology Neurology
DX: R55 Syncope and collapse (principal)
CPT/HCPCS: 93880

== ENCOUNTER → 2016-06-24 | Outpatient (CLI) | payer OTHER ==
--- NOTE | 2016-06-24 11:55 | MR ---
EXAMINATION TYPE: MR brain wo/w con DATE OF EXAM: 06/24/2016 11:39 AM COMPARISON: Previous study dated 12/10/2015 HISTORY: Syncope TECHNIQUE: Multiplanar, multiecho imaging of the brain was obtained with and without intravenous adm inistration of 15 mL intravenous MultiHance. FINDINGS: There is a partially empty sella. Midline structures are otherwise unremarkable. There is a normal craniocervical junction. Echoplanar diffusion imaging is normal. There are normal vascular flow voids. There is mucoperiosteal thickening involving virtually all of the paranasal sinuses. The orbits are normal. There is no evidence of a CP angle mass lesion. No focal lesion, mass effect or midline shift is seen. I do not see evidence of intracranial blood. Following intravenous administration of gadolinium, I do not see evidence of abnormal enhancement. IMPRESSION: 1. NO ACUTE INTRACRANIAL ABNORMALITY. 2. PARTIALLY EMPTY SELLA.
== END | disposition home or self-care (01) ==
LOC: RADMRIMAIN 10:45
PROVIDERS: ATTEND Psychiatry & Neurology Pain Medicine
DX: R55 Syncope and collapse (principal)
CPT/HCPCS: 70553; A9577

== ENCOUNTER 2016-07-02 19:59 | Emergency (ER) | payer OTHER ==
[2016-07-02] MEDS ORDERED: MORPHINE SULFATE 10 MG/ML SYRINGE IM STA (21:07)
[2016-07-02] MEDS ORDERED: ONDANSETRON ODT 4 MG TAB PO STA (21:08)
--- NOTE | 2016-07-02 21:10 | ED ---
Abdominal Pain HPI - General Chief Complaint: Abdominal Pain Stated Complaint: Female Time Seen by Provider: 07/02/16 20:45 Source: patient, RN notes reviewed Mode of arrival: ambulatory Limitations: no limitations - History of Present Illness Initial Comments: Patient is 40-year-old female presents emergency room for evaluation of lower abdominal pain. Patient states pain began when she woke up this morning. Patient stating right lower quadrant and left lower quadrant pain that would not subside. Patient states the pain radiates to her suprapubic area. He denies pain or burning during urination or trouble urinating. Patient denies history of STDs. Patient has a normal vaginal discharge. Patient's age is a history of appendectomy, cholecystectomy and hysterectomy. Patient states she still has her ovaries. Patient denies constipation or diarrhea. Patient states nauseous but denies vomiting. Patient states having 10 out of 10 pain. Patient states her pain medications at home are not helping her pain. Patient denies fevers or chills. Patient states the pain for similar to labor pains. - Related Data Home Medications Medication Instructions Recorded Confirmed [place]alb/APAP/Caff 50-325-40Mg 1 tab PO Q8H PRN 02/18/16 05/20/16 [Fioricet 50-325-40] Cyclobenzaprine [Flexeril] 10 mg PO HS 02/18/16 05/20/16 HYDROcodone/APAP 7.5-325MG [[place] 1 tab PO TID PRN 02/18/16 05/20/16 7.5-325] DULoxetine HCL [Cymbalta] 30 mg PO DAILY 05/20/16 05/20/16 Ketoprofen [Orudis] 50 mg PO TID 05/20/16 05/20/16 Previous Rx's Medication Instructions Recorded Nicotine 14Mg/24Hr Patch [Habitrol] 1 patch TRANSDERM DAILY #14 patch 05/21/16 Verapamil Sr [Isoptin Sr] 120 mg PO DAILY #30 tablet.er 05/21/16 Allergies Allergy/AdvReac Type Severity Reaction Status Date / Time codeine Allergy Unknown Verified 07/02/16 20:14 onion Allergy Unknown Verified 07/02/16 20:14 Review of Systems ROS Statement: Those systems with pertinent positive or pertinent negative responses have been documented in the HPI. ROS Other: All systems not noted in ROS Statement are negative. Past Medical History Past Medical History: CVA/TIA, Osteoarthritis (OA) Additional Past Medical History / Comment(s): DDD. 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 Delgadillo's Esophagus. History of Any Multi-Drug Resistant Organisms: None Reported Past Surgical History: Appendectomy, Cholecystectomy, Hysterectomy, Tubal Ligation Additional Past Surgical History / Comment(s): PAIN CLINIC PROCEDURES Past Anesthesia/Blood Transfusion Reactions: No Reported Reaction Past Psychological History: Anxiety Smoking Status: Current every day smoker Past Alcohol Use History: Occasional Additional Past Alcohol Use History / Comment(s): STARTED SMOKING AGE 18 (1993) SMOKES 1/2 PPD Past Drug Use History: None Reported - Past Family History Mother Family Medical History: No Reported History General Exam - General Exam Comments Initial Comments: Sitting up in exam room uncomfortable secondary to pain, no acute distress. Limitations: no limitations General appearance: alert, in no apparent distress Head exam: Present: atraumatic, normocephalic, normal inspection Eye exam: Present: normal appearance ENT exam: Present: normal exam Neck exam: Present: normal inspection Respiratory exam: Present: normal lung sounds bilaterally. Absent: respiratory distress Cardiovascular Exam: Present: regular rate, normal rhythm, normal heart sounds GI/Abdominal exam: Present: soft, tenderness (Right lower quadrant and left lower quadrant), normal bowel sounds. Absent: distended, guarding, rebound, rigid Extremities exam: Present: normal inspection Back exam: Present: normal inspection Neurological exam: Present: alert, oriented X3, CN II-XII intact, normal gait Psychiatric exam: Present: normal affect, normal mood Skin exam: Present: warm, dry, intact, normal color. Absent: rash Course Vital Signs 07/02/16 07/03/16 20:12 00:36 Temperature 98.5 F 98.4 F Pulse Rate 95 69 Respiratory 16 20 Rate Blood Pressure 123/71 111/60 O2 Sat by Pulse 97 98 Oximetry Medical Decision Making - Medical Decision Making Patient is a 40-year-old female presents to the emergency room for evaluation of left lower quadrant and right lower quadrant pain. Patient was given IM morphine for pain. Ultrasound showed no acute findings. Patient states that only pain medications through IV work for her. Patient was then given Dilaudid IV and states that her pain has completely subsided. Labs show no concerning findings besides a slightly elevated white count. CT abdomen/pelvis was offered to patient and patient declined. Patient states she would like to be discharged home. Patient states she'll follow-up with her primary care provider. Return parameters discussed. Case discussed Dr. Pina. - Lab Data Result diagrams: 07/02/16 23:10 07/02/16 23:10 Lab Results 07/02/16 07/02/16 07/02/16 Range/Units 21:20 21:20 23:10 WBC (3.8-10.6) k/uL RBC (3.80-5.40) m/uL Hgb (11.4-16.0) gm/dL Hct (34.0-46.0) % MCV (80.0-100.0) fL MCH (25.0-35.0) pg MCHC (31.0-37.0) g/dL RDW (11.5-15.5) % Plt Count (150-450) k/uL Neutrophils % % Lymphocytes % % Monocytes % % Eosinophils % % Basophils % % Neutrophils # (1.3-7.7) k/uL Lymphocytes # (1.0-4.8) k/uL Monocytes # (0-1.0) k/uL Eosinophils # (0-0.7) k/uL Basophils # (0-0.2) k/uL Sodium 141 (137-145) mmol/L Potassium 4.5 (3.5-5.1) mmol/L Chloride 107 (98-107) mmol/L Carbon Dioxide 24 (22-30) mmol/L Anion Gap 10 mmol/L BUN 18 H (7-17) mg/dL Creatinine 0.60 (0.52-1.04) mg/dL Est GFR (MDRD) Af Amer >60 (>60 ml/min/1.73 sqM) Est GFR (MDRD) Non-Af >60 (>60 ml/min/1.73 sqM) Glucose 105 H (74-99) mg/dL Calcium 9.6 (8.4-10.2) mg/dL Total Bilirubin 0.3 (0.2-1.3) mg/dL AST 23 (14-36) U/L ALT 29 (9-52) U/L Alkaline Phosphatase 61 (38-126) U/L Total Protein 6.9 (6.3-8.2) g/dL Albumin 4.0 (3.5-5.0) g/dL Amylase 67 (30-110) U/L Lipase 280 (23-300) U/L Urine Color Yellow Urine Appearance Clear (Clear) Urine pH 6.5 (5.0-8.0) Ur Specific [place] 1.032 (1.001-1.035) Urine Protein 1+ H (Negative) Urine Glucose (UA) Negative (Negative) Urine Ketones Trace H (Negative) Urine Blood Negative (Negative) Urine Nitrite Negative (Negative) Urine Bilirubin 1+ H (Negative) Urine Urobilinogen 6.0 (<2.0) mg/dL Ur Leukocyte Esterase Trace H (Negative) Urine RBC 4 (0-5) /hpf Urine WBC 1 (0-5) /hpf Ur Squamous Epith Cells 4 (0-4) /hpf Urine Mucus Many H (None) /hpf Urine HCG, Qual Not Detected (Not Detectd) 07/02/16 Range/Units 23:10 WBC 11.8 H (3.8-10.6) k/uL RBC 4.26 (3.80-5.40) m/uL Hgb 14.4 (11.4-16.0) gm/dL Hct 42.6 (34.0-46.0) % MCV 99.9 (80.0-100.0) fL MCH 33.8 (25.0-35.0) pg MCHC 33.8 (31.0-37.0) g/dL RDW 13.2 (11.5-15.5) % Plt Count 197 (150-450) k/uL Neutrophils % 58 % Lymphocytes % 29 % Monocytes % 4 % Eosinophils % 6 % Basophils % 1 % Neutrophils # 6.9 (1.3-7.7) k/uL Lymphocytes # 3.4 (1.0-4.8) k/uL Monocytes # 0.5 (0-1.0) k/uL Eosinophils # 0.7 (0-0.7) k/uL Basophils # 0.1 (0-0.2) k/uL Sodium (137-145) mmol/L Potassium (3.5-5.1) mmol/L Chloride (98-107) mmol/L Carbon Dioxide (22-30) mmol/L Anion Gap mmol/L BUN (7-17) mg/dL Creatinine (0.52-1.04) mg/dL Est GFR (MDRD) Af Amer (>60 ml/min/1.73 sqM) Est GFR (MDRD) Non-Af (>60 ml/min/1.73 sqM) Glucose (74-99) mg/dL Calcium (8.4-10.2) mg/dL Total Bilirubin (0.2-1.3) mg/dL AST (14-36) U/L ALT (9-52) U/L Alkaline Phosphatase (38-126) U/L Total Protein (6.3-8.2) g/dL Albumin (3.5-5.0) g/dL Amylase (30-110) U/L Lipase (23-300) U/L Urine Color Urine Appearance (Clear) Urine pH (5.0-8.0) Ur Specific [place] (1.001-1.035) Urine Protein (Negative) Urine Glucose (UA) (Negative) Urine Ketones (Negative) Urine Blood (Negative) Urine Nitrite (Negative) Urine Bilirubin (Negative) Urine Urobilinogen (<2.0) mg/dL Ur Leukocyte Esterase (Negative) Urine RBC (0-5) /hpf Urine WBC (0-5) /hpf Ur Squamous Epith Cells (0-4) /hpf Urine Mucus (None) /hpf Urine HCG, Qual (Not Detectd) - Radiology Data Radiology results: report reviewed, image reviewed Disposition Clinical Impression: Abdominal pain Disposition: HOME SELF-CARE Condition: Good Instructions: Abdominal Pain (ED) Additional Instructions: Please follow up with primary care provider or BUSINESS OPERATIONS ANALYST for reevaluation in 24-48 hours. If any new symptom arises or symptoms worsen, return to ER as soon as possible. Referrals: Malena Milner MD [Primary Care Provider] - 1-2 days Time of Disposition: 00:25
[2016-07-02 21:34] LABS: Appearance,Urine Clear (Clear); Bilirubin,Urine 1+ (Negative); Glucose,Urine (UA) Negative (Negative); Ketones,Urine Trace (Negative); Leukocyte Esterase,Urine Trace (Negative); Mucus,Urine Many /hpf; Nitrite,Urine Negative (Negative); PH, Urine 6.5 (5.0-8.0); Particle Count 10863; Protein,Urine 1+ (Negative); RBC,Urine 4 /hpf (0-5); Specific Gravity,Urine 1.032 (1.001-1.035); Squamous Epithelial Cell,Urine 4 /hpf (0-4); UA Billing (MACRO vs. MICRO) MICRO; WBC,Urine 1 /hpf (0-5)
--- NOTE | 2016-07-02 22:15 | US ---
EXAM: US Pelvis, Transvaginal. CLINICAL HISTORY: Reason: Pain TECHNIQUE: Real-time transvaginal pelvic ultrasound (complete) with image documentation. Transvaginal imaging was used for better evaluation of the endometrium and adnexa. COMPARISON: 04/08/15 FINDINGS: Uterus/cervix: Hysterectomy. Right ovary: normal echo, contour, and size. Right ovary measures about 3 x 2.5 x 2.9 cm. Normal blood flow. Left ovary: Left ovary measures about 2.9 x 1.8 x 2.8 cm. normal echo, contour, and size. Orchid Worker identified ovarian cysts. No longer seen. Free fluid: No significant free fluid. IMPRESSION: No acute findings.
[2016-07-02] MEDS ORDERED: HYDROmorphone 1 MG/ML 1 ML SYRINGE IVP STA (22:31)
[2016-07-02] MEDS ORDERED: SODIUM CHLORIDE 0.9% 1,000 ML IV ONE (22:32)
[2016-07-02 23:27] LABS: Basophils # (A) 0.1 k/uL (0-0.2); Basophils % (A) 1 %; CH 33.9; CHCM 34.1; Eosinophils # (A) 0.7 k/uL (0-0.7); Eosinophils % (A) 6 %; HCT 42.6 % (34.0-46.0); HGB 14.4 gm/dL (11.4-16.0); Luc # (Auto) 0.21; Luc % (Auto) 2; Lymphocytes # (A) 3.4 k/uL (1.0-4.8); Lymphocytes % (A) 29 %; MCH 33.8 pg (25.0-35.0); MCHC 33.8 g/dL (31.0-37.0); MCV 99.9 fL (80.0-100.0); Mean Platelet Volume 9.7; Monocytes # (A) 0.5 k/uL (0-1.0); Monocytes % (A) 4 %; Neutrophils # (A) 6.9 k/uL (1.3-7.7); Neutrophils % (A) 58 %; RBC 4.26 m/uL (3.80-5.40); RDW 13.2 % (11.5-15.5); WBC 11.8 k/uL (3.8-10.6); WBC (Perox) 11.63
[2016-07-02 23:49] LABS: ALT 29 U/L (9-52); AST 23 U/L (14-36); Alkaline Phosphatase 61 U/L (38-126); Amylase 67 U/L (30-110); Anion Gap 10 mmol/L; Blood Urea Nitrogen 18 mg/dL (7-17); Calcium 9.6 mg/dL (8.4-10.2); Carbon Dioxide 24 mmol/L (22-30); Chloride 107 mmol/L (98-107); Glucose 105 mg/dL (74-99); Non-African American GFR(MDRD) >60 (>60 ml/min/1.73 sqM); Potassium 4.5 mmol/L (3.5-5.1); Sodium 141 mmol/L (137-145); Total Bilirubin 0.3 mg/dL (0.2-1.3); Total Protein 6.9 g/dL (6.3-8.2)
[2016-07-03] MEDS ORDERED: DIAZEPAM 5 MG/ML 2 ML SYRINGE IVP STA (00:25)
[2016-07-03 00:38] VITALS: BP 111/60; PULSE 69; RESP 20; TEMP 98.4
== END 2016-07-03 00:38 | disposition home or self-care (01) ==
LOC: EC 19:59
DX: R10.31 Right lower quadrant pain (principal); R10.32 Left lower quadrant pain; R11.0 Nausea; M19.90 Unspecified osteoarthritis, unspecified site; F41.9 Anxiety disorder, unspecified; F17.200 Nicotine dependence, unspecified, uncomplicated; Z79.899 Other long term (current) drug therapy; Z88.5 Allergy status to narcotic agent; Z91.018 Allergy to other foods; Z86.73 Personal history of transient ischemic attack (TIA), and cerebral infarction without residual deficits; Z86.69 Personal history of other diseases of the nervous system and sense organs; Z90.49 Acquired absence of other specified parts of digestive tract; Z90.710 Acquired absence of both cervix and uterus; Z98.51 Tubal ligation status
CPT/HCPCS: 99284; 96374; 96375; 96361; 96372; 36415; 80053; 82150; 83690; 85025; 81001; 81025; 87491; 87591; 93975; 76830; J3360; J2270; J1170

== ENCOUNTER 2016-11-06 21:06 | Emergency (ER) | payer OTHER ==
[2016-11-06] MEDS ORDERED: HYDROmorphone 1 MG/ML 1 ML SYRINGE IVP STA (21:30)
[2016-11-06] MEDS ORDERED: METOCLOPRAMIDE 5 MG/ML 2 ML VIAL IVP STA (21:30)
[2016-11-06] MEDS ORDERED: SODIUM CHLORIDE 0.9% 500 ML IV STA (21:30)
--- NOTE | 2016-11-06 21:35 | ED ---
General Adult HPI - General Chief complaint: Abdominal Pain Stated complaint: right side pain Time Seen by Provider: 11/06/16 21:26 Source: patient, RN notes reviewed Mode of arrival: ambulatory Limitations: no limitations - History of Present Illness Initial comments: Patient is a pleasant 40-year-old female presenting to the emergency department complaining of right flank pain. Symptoms have been steady for the past several days. Patient states it feels in the area of her kidney. This is different from her chronic back pain. No worsening of symptoms with position changes. Patient states sometimes the back discomfort spasms and is causes her to have episodes of emesis. Patient has also been experiencing intermittent headaches with past 4 days however this is chronic and unchanged. Patient has seen specialists for this including neurologist and had complete evaluation for this. Headache is no different from her chronic headache. - Related Data Home Medications Medication Instructions Recorded Confirmed Butalb/APAP/Caff 50-325-40Mg 1 tab PO Q8H PRN 02/18/16 11/06/16 [Fioricet 50-325-40] Cyclobenzaprine [Flexeril] 10 mg PO HS 02/18/16 11/06/16 HYDROcodone/APAP 7.5-325MG [[place] 1 tab PO TID PRN 02/18/16 11/06/16 7.5-325] Meloxicam [Mobic] 15 mg PO DAILY 11/06/16 11/06/16 Previous Rx's Medication Instructions Recorded Verapamil Sr [Isoptin Sr] 120 mg PO DAILY #30 tablet.er 05/21/16 Hydrocodone/Acetaminophen [[place] 2 each PO Q6HR PRN #20 tab 11/06/16 5-325] Tamsulosin [Flomax] 0.4 mg PO DAILY #14 cap 11/06/16 Allergies Allergy/AdvReac Type Severity Reaction Status Date / Time codeine Allergy Unknown Verified 11/06/16 21:39 onion Allergy Unknown Verified 11/06/16 21:39 Review of Systems ROS Statement: Those systems with pertinent positive or pertinent negative responses have been documented in the HPI. ROS Other: All systems not noted in ROS Statement are negative. Constitutional: Denies: fever Eyes: Denies: eye pain ENT: Denies: ear pain Respiratory: Denies: cough Cardiovascular: Denies: chest pain Endocrine: Denies: fatigue Gastrointestinal: Reports: vomiting Genitourinary: Denies: urgency, dysuria, frequency, hematuria Musculoskeletal: Reports: back pain (Right posterior flank) Skin: Denies: rash Neurological: Reports: headache. Denies: weakness Past Medical History Past Medical History: CVA/TIA, Osteoarthritis (OA) Additional Past Medical History / Comment(s): DDD. 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 Delgadillo's Esophagus. History of Any Multi-Drug Resistant Organisms: None Reported Past Surgical History: Appendectomy, Cholecystectomy, Hysterectomy, Tubal Ligation Additional Past Surgical History / Comment(s): PAIN CLINIC PROCEDURES Past Anesthesia/Blood Transfusion Reactions: No Reported Reaction Past Psychological History: Anxiety Smoking Status: Current every day smoker Past Alcohol Use History: Occasional Past Drug Use History: None Reported - Past Family History Mother Family Medical History: No Reported History General Exam Limitations: no limitations General appearance: alert, in no apparent distress Head exam: Present: atraumatic Eye exam: Present: normal appearance, PERRL, EOMI. Absent: nystagmus ENT exam: Present: normal oropharynx Neck exam: Present: normal inspection Respiratory exam: Present: normal lung sounds bilaterally Cardiovascular Exam: Present: regular rate, normal rhythm Expanded Peripheral pulses: 2+: Dorsalis Pedis (R), Dorsalis Pedis (L) GI/Abdominal exam: Present: soft, normal bowel sounds. Absent: distended, tenderness, guarding, rebound, rigid, pulsatile mass Extremities exam: Present: normal inspection. Absent: pedal edema, calf tenderness Back exam: Present: tenderness (Mild discomfort below the right CVA) Neurological exam: Present: alert, CN II-XII intact. Absent: motor sensory deficit Expanded Speech: Present: fluid speech Motor strength exam: RUE: 5, LUE: 5, RLE: 5, LLE: 5 Eye Response: (4) open spontaneously Motor Response: (6) obeys commands Verbal Response: (5) oriented Psychiatric exam: Present: normal affect, normal mood Skin exam: Present: normal color Course Vital Signs 11/06/16 21:20 Temperature 99 F Pulse Rate 99 Respiratory 20 Rate Blood Pressure 135/101 O2 Sat by Pulse 96 Oximetry Medical Decision Making - Medical Decision Making Patient reexamined and resting comfortably in bed. Patient states she still has discomfort and will be provided further medication. Patient was updated on results. - Lab Data Result diagrams: 11/06/16 21:38 11/06/16 21:38 Lab Results 11/06/16 11/06/16 11/06/16 Range/Units 21:38 21:38 21:38 WBC 12.7 H (3.8-10.6) k/uL RBC 4.65 (3.80-5.40) m/uL Hgb 15.4 (11.4-16.0) gm/dL Hct 46.2 H (34.0-46.0) % MCV 99.4 (80.0-100.0) fL MCH 33.2 (25.0-35.0) pg MCHC 33.4 (31.0-37.0) g/dL RDW 13.8 (11.5-15.5) % Plt Count 212 (150-450) k/uL Neutrophils % 68 % Lymphocytes % 23 % Monocytes % 4 % Eosinophils % 3 % Basophils % 1 % Neutrophils # 8.6 H (1.3-7.7) k/uL Lymphocytes # 3.0 (1.0-4.8) k/uL Monocytes # 0.4 (0-1.0) k/uL Eosinophils # 0.4 (0-0.7) k/uL Basophils # 0.1 (0-0.2) k/uL PT 10.2 (9.0-12.0) sec INR 1.0 (<1.2) APTT 24.5 (22.0-30.0) sec Sodium 141 (137-145) mmol/L Potassium 4.0 (3.5-5.1) mmol/L Chloride 105 (98-107) mmol/L Carbon Dioxide 27 (22-30) mmol/L Anion Gap 9 mmol/L BUN 9 (7-17) mg/dL Creatinine 0.69 (0.52-1.04) mg/dL Est GFR (MDRD) Af Amer >60 (>60 ml/min/1.73 sqM) Est GFR (MDRD) Non-Af >60 (>60 ml/min/1.73 sqM) Glucose 101 H (74-99) mg/dL Calcium 9.4 (8.4-10.2) mg/dL Total Bilirubin 0.3 (0.2-1.3) mg/dL AST 23 (14-36) U/L ALT 45 (9-52) U/L Alkaline Phosphatase 63 (38-126) U/L Total Protein 7.3 (6.3-8.2) g/dL Albumin 4.4 (3.5-5.0) g/dL Amylase 67 (30-110) U/L Lipase 204 (23-300) U/L Urine Color Urine Appearance (Clear) Urine pH (5.0-8.0) Ur Specific [place] (1.001-1.035) Urine Protein (Negative) Urine Glucose (UA) (Negative) Urine Ketones (Negative) Urine Blood (Negative) Urine Nitrite (Negative) Urine Bilirubin (Negative) Urine Urobilinogen (<2.0) mg/dL Ur Leukocyte Esterase (Negative) 11/06/16 Range/Units 21:38 WBC (3.8-10.6) k/uL RBC (3.80-5.40) m/uL Hgb (11.4-16.0) gm/dL Hct (34.0-46.0) % MCV (80.0-100.0) fL MCH (25.0-35.0) pg MCHC (31.0-37.0) g/dL RDW (11.5-15.5) % Plt Count (150-450) k/uL Neutrophils % % Lymphocytes % % Monocytes % % Eosinophils % % Basophils % % Neutrophils # (1.3-7.7) k/uL Lymphocytes # (1.0-4.8) k/uL Monocytes # (0-1.0) k/uL Eosinophils # (0-0.7) k/uL Basophils # (0-0.2) k/uL PT (9.0-12.0) sec INR (<1.2) APTT (22.0-30.0) sec Sodium (137-145) mmol/L Potassium (3.5-5.1) mmol/L Chloride (98-107) mmol/L Carbon Dioxide (22-30) mmol/L Anion Gap mmol/L BUN (7-17) mg/dL Creatinine (0.52-1.04) mg/dL Est GFR (MDRD) Af Amer (>60 ml/min/1.73 sqM) Est GFR (MDRD) Non-Af (>60 ml/min/1.73 sqM) Glucose (74-99) mg/dL Calcium (8.4-10.2) mg/dL Total Bilirubin (0.2-1.3) mg/dL AST (14-36) U/L ALT (9-52) U/L Alkaline Phosphatase (38-126) U/L Total Protein (6.3-8.2) g/dL Albumin (3.5-5.0) g/dL Amylase (30-110) U/L Lipase (23-300) U/L Urine Color Yellow Urine Appearance Clear (Clear) Urine pH 7.5 (5.0-8.0) Ur Specific [place] 1.022 (1.001-1.035) Urine Protein Trace H (Negative) Urine Glucose (UA) Negative (Negative) Urine Ketones Negative (Negative) Urine Blood Negative (Negative) Urine Nitrite Negative (Negative) Urine Bilirubin Negative (Negative) Urine Urobilinogen 3.0 (<2.0) mg/dL Ur Leukocyte Esterase Negative (Negative) - Radiology Data Radiology results: image reviewed (Computed tomography scan of the abdomen pelvis shows punctate stone in the mid to distal ureter.) Disposition Clinical Impression: Ureterolithiasis Disposition: HOME SELF-CARE Condition: Stable Instructions: Kidney Stones (ED) Additional Instructions: Please follow-up to in the beginning of the week for recheck. Return for fever, increased pain, worsening or changing symptoms or other concerns or uncontrolled vomiting Prescriptions: Hydrocodone/Acetaminophen [[place] 5-325] 2 each PO Q6HR PRN #20 tab PRN Reason: Pain Tamsulosin [Flomax] 0.4 mg PO DAILY #14 cap Referrals: Malena Milner MD [Primary Care Provider] - 1-2 days Time of Disposition: 23:12
[2016-11-06 21:57] LABS: Appearance,Urine Clear (Clear); Bilirubin,Urine Negative (Negative); Glucose,Urine (UA) Negative (Negative); Ketones,Urine Negative (Negative); Leukocyte Esterase,Urine Negative (Negative); Nitrite,Urine Negative (Negative); PH, Urine 7.5 (5.0-8.0); Protein,Urine Trace (Negative); Specific Gravity,Urine 1.022 (1.001-1.035); UA Billing (MACRO vs. MICRO) CHEM
[2016-11-06 21:58] LABS: Basophils # (A) 0.1 k/uL (0-0.2); Basophils % (A) 1 %; CH 34.6; Eosinophils # (A) 0.4 k/uL (0-0.7); Eosinophils % (A) 3 %; HCT 46.2 % (34.0-46.0); HGB 15.4 gm/dL (11.4-16.0); Luc # (Auto) 0.18; Luc % (Auto) 2; Lymphocytes % (A) 23 %; MCH 33.2 pg (25.0-35.0); MCHC 33.4 g/dL (31.0-37.0); MCV 99.4 fL (80.0-100.0); Mean Platelet Volume 8.8; Monocytes # (A) 0.4 k/uL (0-1.0); Monocytes % (A) 4 %; Neutrophils # (A) 8.6 k/uL (1.3-7.7); Neutrophils % (A) 68 %; RBC 4.65 m/uL (3.80-5.40); RDW 13.8 % (11.5-15.5); WBC 12.7 k/uL (3.8-10.6); WBC (Perox) 12.38
[2016-11-06 22:08] LABS: ALT 45 U/L (9-52); AST 23 U/L (14-36); Alkaline Phosphatase 63 U/L (38-126); Amylase 67 U/L (30-110); Anion Gap 9 mmol/L; Blood Urea Nitrogen 9 mg/dL (7-17); Calcium 9.4 mg/dL (8.4-10.2); Carbon Dioxide 27 mmol/L (22-30); Chloride 105 mmol/L (98-107); Glucose 101 mg/dL (74-99); Non-African American GFR(MDRD) >60 (>60 ml/min/1.73 sqM); Sodium 141 mmol/L (137-145); Total Bilirubin 0.3 mg/dL (0.2-1.3); Total Protein 7.3 g/dL (6.3-8.2)
[2016-11-06 22:17] LABS: Partial Thromboplastin Time 24.5 sec (22.0-30.0); Prothrombin Time 10.2 sec (9.0-12.0)
--- NOTE | 2016-11-06 23:01 | CT ---
EXAM: CT Abdomen and Pelvis Without Intravenous Contrast CLINICAL HISTORY: Reason: Right posterior flank pain TECHNIQUE: Axial computed tomography images of the abdomen and pelvis without intravenous contrast. CTDI is 19.96 mGy and DLP is 948.1 mGy-cm. This CT exam was performed using one or more of the following dose reduction techniques: automated exposure control, adjustment of the mA and/or kV according to patient size, and/or use of iterative reconstruction technique. COMPARISON: 11/29/2015 FINDINGS: Lower thorax: No acute findings. ABDOMEN: Liver: Unremarkable. Gallbladder and bile ducts: Patient is status post cholecystectomy and appendectomy. No ductal dilation. Pancreas: Unremarkable. No ductal dilation. Spleen: Unremarkable. No splenomegaly. Adrenals: Unremarkable. No mass. Kidneys and ureters: Punctate stone is seen within the mid/distal right ureter (series 3, image 104 and series 5, image 50). No significant right-sided hydronephrosis. Stomach and bowel: Grossly unremarkable on this noncontrast study. No obstruction. Appendix: See above. PELVIS: Bladder: Unremarkable. No stones. Reproductive: The uterus is not definitively visualized. Correlate with patient's prior surgical history. ABDOMEN and PELVIS: Intraperitoneal space: Unremarkable. No free air. No significant fluid collection. Bones/joints: Bilateral symmetric sacroiliitis is noted, similar to prior study. No acute fracture. No dislocation. Soft tissues: Tiny fat-containing bilateral inguinal hernias are seen. Vasculature: Unremarkable. No abdominal aortic aneurysm. Lymph nodes: Unremarkable. No grossly enlarged lymph nodes. IMPRESSION: Punctate stone within the mid/distal right ureter, which does not result in significant right-sided hydronephrosis.
[2016-11-06] MEDS ORDERED: KETOROLAC 30 MG/ML 1 ML VIAL IVP STA (23:07)
[2016-11-06 23:18] VITALS: BP 126/78; PULSE 80; RESP 18; TEMP 98.9
== END 2016-11-06 23:49 | disposition home or self-care (01) ==
LOC: EC 21:06
DX: N20.1 Calculus of ureter (principal); R51 Headache; R40.2142 Coma scale, eyes open, spontaneous, at arrival to emergency department; R40.2252 Coma scale, best verbal response, oriented, at arrival to emergency department; R40.2362 Coma scale, best motor response, obeys commands, at arrival to emergency department; M19.90 Unspecified osteoarthritis, unspecified site; F17.200 Nicotine dependence, unspecified, uncomplicated; Z86.73 Personal history of transient ischemic attack (TIA), and cerebral infarction without residual deficits; Z90.49 Acquired absence of other specified parts of digestive tract; Z90.710 Acquired absence of both cervix and uterus; Z98.51 Tubal ligation status; Z79.1 Long term (current) use of non-steroidal anti-inflammatories (NSAID); Z79.899 Other long term (current) drug therapy; Z88.5 Allergy status to narcotic agent; Z91.018 Allergy to other foods
CPT/HCPCS: 36415; 80053; 82150; 83690; 85025; 85610; 85730; 81003; 74176; 99284; 96374; 96375 ×2; 96361; J2765; J1885; J1170

== ENCOUNTER 2016-12-07 10:21 | Emergency (ER) | payer OTHER ==
[2016-12-07] MEDS ORDERED: ONDANSETRON 4 MG/2 ML VIAL IVP STA (10:41)
[2016-12-07] MEDS ORDERED: HYDROmorphone 1 MG/ML 1 ML SYRINGE IVP STA ×2 (10:41→12:12)
[2016-12-07] MEDS ORDERED: KETOROLAC 30 MG/ML 1 ML VIAL IVP STA (10:41)
[2016-12-07] MEDS ORDERED: SODIUM CHLORIDE 0.9% 1,000 ML IV STA (10:41)
--- NOTE | 2016-12-07 10:43 | ED ---
General Adult HPI - General Chief complaint: Abdominal Pain Stated complaint: Abd Pain Time Seen by Provider: 12/07/16 10:37 Source: patient, RN notes reviewed Mode of arrival: ambulatory Limitations: no limitations - History of Present Illness Initial comments: Patient is a 41-year-old female significant past medical history for kidney stones, who presents emergency room today with chief complaint of right-sided flank pain. She states that she's had some symptoms of nausea vomiting. States pain started mildly a few days ago but increased last night. States had difficult time sleeping. States it does remind her kidney stone that she had approximately a month ago when she had a CAT scan performed. Patient denies any other complaints associated symptoms. Patient denies any recent fever, chills, shortness of breath, chest pain, numbness or tingling, dysuria or hematuria, constipation or diarrhea, headaches or visual changes, or any other complaints. - Related Data Home Medications Medication Instructions Recorded Confirmed Butalb/APAP/Caff 50-325-40Mg 1 tab PO Q8H PRN 02/18/16 12/07/16 [Fioricet 50-325-40] Cyclobenzaprine [Flexeril] 10 mg PO HS 02/18/16 12/07/16 Meloxicam [Mobic] 15 mg PO DAILY 11/06/16 12/07/16 Divalproex [Depakote] 250 mg PO BID 12/07/16 12/07/16 Previous Rx's Medication Instructions Recorded Hydrocodone/Acetaminophen [[place] 1 each PO Q6HR PRN #20 tab 12/07/16 5-325] Ibuprofen [Motrin] 600 mg PO Q6HR PRN #40 day 12/07/16 Ondansetron Odt [Zofran ODT] 4 mg PO Q8HR PRN #20 tab 12/07/16 Tamsulosin [Flomax] 0.4 mg PO DAILY #10 cap 12/07/16 Allergies Allergy/AdvReac Type Severity Reaction Status Date / Time codeine Allergy Unknown Verified 12/07/16 11:20 onion Allergy Unknown Verified 12/07/16 11:20 Review of Systems ROS Statement: Those systems with pertinent positive or pertinent negative responses have been documented in the HPI. ROS Other: All systems not noted in ROS Statement are negative. Past Medical History Past Medical History: CVA/TIA, Osteoarthritis (OA) Additional Past Medical History / Comment(s): DDD. 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 Delgadillo's Esophagus. History of Any Multi-Drug Resistant Organisms: None Reported Past Surgical History: Appendectomy, Cholecystectomy, Hysterectomy, Tubal Ligation Additional Past Surgical History / Comment(s): PAIN CLINIC PROCEDURES Past Anesthesia/Blood Transfusion Reactions: No Reported Reaction Past Psychological History: Anxiety Smoking Status: Current every day smoker Past Alcohol Use History: Occasional Past Drug Use History: None Reported - Past Family History Mother Family Medical History: No Reported History General Exam - General Exam Comments Initial Comments: General: The patient is awake and alert, in mild discomfort. Eye: Pupils are equal, round and reactive to light, extra-ocular movements are intact. No nystagmus. There is normal conjunctiva bilaterally. No signs of icterus. Ears, nose, mouth and throat: There are moist mucous membranes and no oral lesions. Neck: The neck is supple, there is no tenderness or JVD. Cardiovascular: There is a regular rate and rhythm. No murmur, rub or gallop is appreciated. Respiratory: Lungs are clear to auscultation, respirations are non-labored, breath sounds are equal. No wheezes, stridor, rales, or rhonchi. Gastrointestinal: Soft, non-distended, non-tender abdomen without masses or organomegaly noted. There is no rebound or guarding present. No CVA tenderness. Bowel sounds are unremarkable. Musculoskeletal: Normal ROM, no tenderness. Strength 5/5. Sensation intact. Pulses equal bilaterally 2+. Neurological: A&O x 3. CN II-XII intact, There are no obvious motor or sensory deficits. Coordination appears grossly intact. Speech is normal. Skin: Skin is warm and dry and no rashes or lesions are noted. Psychiatric: Cooperative, appropriate mood & affect, normal judgment. Limitations: no limitations Course Vital Signs 12/07/16 10:30 Temperature 98.2 F Pulse Rate 96 Respiratory 16 Rate Blood Pressure 112/57 O2 Sat by Pulse 98 Oximetry Medical Decision Making - Medical Decision Making Patient reexamined at this time showing no signs of distress is feeling better after pain medication given here in emergency room. Does have a history of kidney stones that this feels the same. Her labs were reviewed unremarkable. X -ray unremarkable. Patient will be discharged home with [facility], [place], ibuprofen, and Zofran for nausea. Advised follow-up family doctor or urologist if symptoms persist over the next 2 days. Advised return for any other concerns. - Lab Data Result diagrams: 12/07/16 11:20 12/07/16 11:20 Lab Results 12/07/16 12/07/16 12/07/16 Range/Units 11:20 11:20 11:20 WBC 8.5 (3.8-10.6) k/uL RBC 4.48 (3.80-5.40) m/uL Hgb 15.0 (11.4-16.0) gm/dL Hct 43.2 (34.0-46.0) % MCV 96.5 (80.0-100.0) fL MCH 33.4 (25.0-35.0) pg MCHC 34.6 (31.0-37.0) g/dL RDW 13.0 (11.5-15.5) % Plt Count 194 (150-450) k/uL Neutrophils % 58 % Lymphocytes % 29 % Monocytes % 5 % Eosinophils % 6 % Basophils % 1 % Neutrophils # 4.9 (1.3-7.7) k/uL Lymphocytes # 2.4 (1.0-4.8) k/uL Monocytes # 0.4 (0-1.0) k/uL Eosinophils # 0.5 (0-0.7) k/uL Basophils # 0.1 (0-0.2) k/uL Sodium 139 (137-145) mmol/L Potassium 4.3 (3.5-5.1) mmol/L Chloride 105 (98-107) mmol/L Carbon Dioxide 24 (22-30) mmol/L Anion Gap 10 mmol/L BUN 11 (7-17) mg/dL Creatinine 0.55 (0.52-1.04) mg/dL Est GFR (MDRD) Af Amer >60 (>60 ml/min/1.73 sqM) Est GFR (MDRD) Non-Af >60 (>60 ml/min/1.73 sqM) Glucose 86 (74-99) mg/dL Calcium 9.7 (8.4-10.2) mg/dL Total Bilirubin 0.3 (0.2-1.3) mg/dL AST 25 (14-36) U/L ALT 31 (9-52) U/L Alkaline Phosphatase 61 (38-126) U/L Total Protein 7.2 (6.3-8.2) g/dL Albumin 4.4 (3.5-5.0) g/dL Amylase 95 (30-110) U/L Lipase 285 (23-300) U/L Urine Color Urine Appearance (Clear) Urine pH (5.0-8.0) Ur Specific [place] (1.001-1.035) Urine Protein (Negative) Urine Glucose (UA) (Negative) Urine Ketones (Negative) Urine Blood (Negative) Urine Nitrite (Negative) Urine Bilirubin (Negative) Urine Urobilinogen (<2.0) mg/dL Ur Leukocyte Esterase (Negative) Urine HCG, Qual Not Detected (Not Detectd) 12/07/16 Range/Units 11:20 WBC (3.8-10.6) k/uL RBC (3.80-5.40) m/uL Hgb (11.4-16.0) gm/dL Hct (34.0-46.0) % MCV (80.0-100.0) fL MCH (25.0-35.0) pg MCHC (31.0-37.0) g/dL RDW (11.5-15.5) % Plt Count (150-450) k/uL Neutrophils % % Lymphocytes % % Monocytes % % Eosinophils % % Basophils % % Neutrophils # (1.3-7.7) k/uL Lymphocytes # (1.0-4.8) k/uL Monocytes # (0-1.0) k/uL Eosinophils # (0-0.7) k/uL Basophils # (0-0.2) k/uL Sodium (137-145) mmol/L Potassium (3.5-5.1) mmol/L Chloride (98-107) mmol/L Carbon Dioxide (22-30) mmol/L Anion Gap mmol/L BUN (7-17) mg/dL Creatinine (0.52-1.04) mg/dL Est GFR (MDRD) Af Amer (>60 ml/min/1.73 sqM) Est GFR (MDRD) Non-Af (>60 ml/min/1.73 sqM) Glucose (74-99) mg/dL Calcium (8.4-10.2) mg/dL Total Bilirubin (0.2-1.3) mg/dL AST (14-36) U/L ALT (9-52) U/L Alkaline Phosphatase (38-126) U/L Total Protein (6.3-8.2) g/dL Albumin (3.5-5.0) g/dL Amylase (30-110) U/L Lipase (23-300) U/L Urine Color Light Yellow Urine Appearance Clear (Clear) Urine pH 6.0 (5.0-8.0) Ur Specific [place] 1.003 (1.001-1.035) Urine Protein Negative (Negative) Urine Glucose (UA) Negative (Negative) Urine Ketones Negative (Negative) Urine Blood Negative (Negative) Urine Nitrite Negative (Negative) Urine Bilirubin Negative (Negative) Urine Urobilinogen <2.0 (<2.0) mg/dL Ur Leukocyte Esterase Negative (Negative) Urine HCG, Qual (Not Detectd) Disposition Clinical Impression: Kidney stone Disposition: HOME SELF-CARE Condition: Good Instructions: Kidney Stones (ED) Additional Instructions: Please use medication as discussed. Please follow-up with urologist/family doctor in the next 2 days of symptoms have not improved. Please return to emergency room if the symptoms increase or worsen or for any other concerns. Prescriptions: Hydrocodone/Acetaminophen [[place] 5-325] 1 each PO Q6HR PRN #20 tab PRN Reason: Pain Ibuprofen [Motrin] 600 mg PO Q6HR PRN #40 day PRN Reason: Pain Ondansetron Odt [Zofran ODT] 4 mg PO Q8HR PRN #20 tab PRN Reason: Nausea Tamsulosin [Flomax] 0.4 mg PO DAILY #10 cap Referrals: Malena Milner MD [Primary Care Provider] - 1-2 days Time of Disposition: 12:13
[2016-12-07 11:42] LABS: Basophils # (A) 0.1 k/uL (0-0.2); Basophils % (A) 1 %; CH 33.7; Eosinophils # (A) 0.5 k/uL (0-0.7); Eosinophils % (A) 6 %; HCT 43.2 % (34.0-46.0); HDW 2.37; Luc # (Auto) 0.11; Luc % (Auto) 1; Lymphocytes # (A) 2.4 k/uL (1.0-4.8); Lymphocytes % (A) 29 %; MCH 33.4 pg (25.0-35.0); MCHC 34.6 g/dL (31.0-37.0); MCV 96.5 fL (80.0-100.0); Mean Platelet Volume 8.9; Monocytes # (A) 0.4 k/uL (0-1.0); Monocytes % (A) 5 %; Neutrophils # (A) 4.9 k/uL (1.3-7.7); Neutrophils % (A) 58 %; RBC 4.48 m/uL (3.80-5.40); WBC 8.5 k/uL (3.8-10.6); WBC (Perox) 8.29
[2016-12-07 11:43] LABS: Appearance,Urine Clear (Clear); Bilirubin,Urine Negative (Negative); Glucose,Urine (UA) Negative (Negative); Ketones,Urine Negative (Negative); Leukocyte Esterase,Urine Negative (Negative); Nitrite,Urine Negative (Negative); Protein,Urine Negative (Negative); Specific Gravity,Urine 1.003 (1.001-1.035); UA Billing (MACRO vs. MICRO) CHEM; Urobilinogen,Urine <2.0 mg/dL (<2.0)
[2016-12-07 11:50] LABS: ALT 31 U/L (9-52); AST 25 U/L (14-36); Alkaline Phosphatase 61 U/L (38-126); Amylase 95 U/L (30-110); Anion Gap 10 mmol/L; Blood Urea Nitrogen 11 mg/dL (7-17); Calcium 9.7 mg/dL (8.4-10.2); Carbon Dioxide 24 mmol/L (22-30); Chloride 105 mmol/L (98-107); Glucose 86 mg/dL (74-99); Non-African American GFR(MDRD) >60 (>60 ml/min/1.73 sqM); Potassium 4.3 mmol/L (3.5-5.1); Sodium 139 mmol/L (137-145); Total Bilirubin 0.3 mg/dL (0.2-1.3); Total Protein 7.2 g/dL (6.3-8.2)
--- NOTE | 2016-12-07 11:56 | XR ---
EXAMINATION TYPE: XR KUB DATE OF EXAM: 12/07/2016 COMPARISON: NONE HISTORY: Pain TECHNIQUE: Single supine KUB image of the abdomen is obtained FINDINGS: Small bowel demonstrates no evidence for dilatation or air fluid levels. Gas and fecal material is seen in non-distended colon. No convincing evidence for pneumoperitoneum. No unusual calcifications. The lung bases are clear. The osseous structures are intact. IMPRESSION: 1. Overall nonobstructive bowel gas pattern.
[2016-12-07 12:41] VITALS: BP 124/76; PULSE 86; RESP 20; TEMP 97.8
== END 2016-12-07 12:41 | disposition home or self-care (01) ==
LOC: EC 10:21
DX: N20.0 Calculus of kidney (principal); R10.9 Unspecified abdominal pain; R11.2 Nausea with vomiting, unspecified; M19.90 Unspecified osteoarthritis, unspecified site; F41.9 Anxiety disorder, unspecified; F17.200 Nicotine dependence, unspecified, uncomplicated; Z86.73 Personal history of transient ischemic attack (TIA), and cerebral infarction without residual deficits; Z79.1 Long term (current) use of non-steroidal anti-inflammatories (NSAID); Z79.899 Other long term (current) drug therapy; Z88.5 Allergy status to narcotic agent; Z91.018 Allergy to other foods; Z90.49 Acquired absence of other specified parts of digestive tract
CPT/HCPCS: 36415; 80053; 82150; 83690; 85025; 81003; 81025; 74000; 99284; 96374; 96375 ×2; 96376; 96361; J2405; J1885; J1170

== ENCOUNTER 2016-12-10 15:49 | Observation (INO) | payer OTHER ==
[2016-12-10] MEDS ORDERED: ASPIRIN 81 MG PO STA (16:41)
[2016-12-10] MEDS ORDERED: SODIUM CHLORIDE 0.9% 1,000 ML IV STA (16:41)
--- NOTE | 2016-12-10 16:48 | ED ---
General Adult HPI - General Chief complaint: Chest Pain Stated complaint: heart problems Time Seen by Provider: 12/10/16 16:24 Source: patient, family, RN notes reviewed, old records reviewed Mode of arrival: ambulatory Limitations: no limitations - History of Present Illness Initial comments: Chief complaint history of present illness a 41-year-old female here with her significant other. The patient reports that while home resting she developed discomfort to the left side of her chest that went to the left shoulder and somewhat diaphoretic. The pain can mildly be reproduced by pushing hard around her left breast area. Denies any rashes denies any injuries. The pain comes and goes feels a deep ache. Her [id number] gave her a sublingual nitro of her own which did not help. - Related Data Home Medications Medication Instructions Recorded Confirmed Butalb/APAP/Caff 50-325-40Mg 1 tab PO Q8H PRN 02/18/16 12/10/16 [Fioricet 50-325-40] Divalproex [Depakote] 250 mg PO BID 12/07/16 12/10/16 Hydrocodone/Acetaminophen [[place] 1 tab PO Q6HR PRN 12/10/16 12/10/16 5-325] Nitroglycerin Sl Tabs [Nitrostat] 0.4 mg SUBLINGUAL ONCE PRN 12/10/16 12/10/16 Previous Rx's Medication Instructions Recorded Tamsulosin [Flomax] 0.4 mg PO DAILY #10 cap 12/07/16 Allergies Allergy/AdvReac Type Severity Reaction Status Date / Time codeine Allergy Unknown Verified 12/10/16 16:34 onion Allergy Unknown Verified 12/10/16 16:34 Review of Systems ROS Statement: Those systems with pertinent positive or pertinent negative responses have been documented in the HPI. Review of systems. Patient denies any headache but she has migraines twice a day denies any visual acuity changes discomfort to her chest subsided somewhat now is no longer diaphoretic. She did get the pain it went back towards her left scapular region. Denies any nausea vomiting at this time. No GI/ complaints. No neuro deficits. All systems were reviewed. Past medical problems significant for TIAs, osteoarthritis, degenerative disc disease. Migraines get that and she has syncopal episode times. She has 2 migraines per day takes Fioricet. She is to chronic pain goes to the clinic now she is normal chronic pain medication. Her surgeries include appendectomy, cholecystectomy, hysterectomy preceded by tubal ligation. Family history grandmother had leukemia for mother had lupus and anemia breast cancer. Patient reports ALLERGIES to codeine and onions. She does smoke strongly encouraged to stop denies alcohol use. ROS Other: All systems not noted in ROS Statement are negative. Past Medical History Past Medical History: CVA/TIA, Osteoarthritis (OA) Additional Past Medical History / Comment(s): DDD. 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 Delgadillo's Esophagus. History of Any Multi-Drug Resistant Organisms: None Reported Past Surgical History: Appendectomy, Cholecystectomy, Hysterectomy, Tubal Ligation Additional Past Surgical History / Comment(s): PAIN CLINIC PROCEDURES Past Anesthesia/Blood Transfusion Reactions: No Reported Reaction Past Psychological History: Anxiety Smoking Status: Current every day smoker Past Alcohol Use History: Occasional Past Drug Use History: None Reported - Past Family History Mother Family Medical History: No Reported History General Exam - General Exam Comments Initial Comments: General: The patient is awake and alert, mild left chest pain that goes toward left scapular shoulder area. It is somewhat reproducible when she pushes hard around the midline and just under left breast area. Does not get worse and she takes deep breath twist returns. Vital signs show temp 98.3 pulse 1:15 over story rate 20 pulse ox 99% room air blood pressure 122/76 Eye: Pupils are equal, round and reactive to light, extra-ocular movements are intact ; there is normal conjunctiva bilaterally. No signs of icterus. Ears, nose, mouth and throat: There are moist mucous membranes and no oral lesions. Neck: The neck is supple, there is no tenderness, no anterior cervical lymphadenopathy , no carotid bruit. Cardiovascular: There is a regular rate and rhythm. No murmur, rub or gallop is appreciated. Respiratory: Lungs are clear to auscultation, respirations are non-labored, breath sounds are equal. No wheezes, stridor, rales, or rhonchi. Gastrointestinal: Soft, non-distended, non-tender abdomen without masses or organomegaly noted. There is no rebound or guarding present. No CVA tenderness. Bowel sounds are unremarkable. Back: There is no tenderness to palpation in the midline. There is no obvious deformity. No rashes noted. Musculoskeletal: Normal ROM, no tenderness, There is no pedal edema. There is no calf tenderness or swelling. Sensation intact. Pulses equal bilaterally 2+. Neurological: CN II-XII intact, There are no obvious motor or sensory deficits. Coordination appears grossly intact. Speech is normal. No neuro deficits Skin: Skin is warm and dry and no rashes or lesions are noted. Limitations: no limitations Course Vital Signs 12/10/16 16:12 Temperature 98.3 F Pulse Rate 115 H Respiratory 20 Rate Blood Pressure 122/76 O2 Sat by Pulse 99 Oximetry EKG Findings - EKG Comments: EKG Findings:: EKG was done and reviewed at 16 and 3 showing sinus tachycardia rate 116. No acute ST elevation no ectopy no ischemic changes. Rate 116 ME interval was 122 QRS 78 QT 318 QTc 442. This EKG was compared to one done on May 20 of this year and they're similar. Dr. Pina Medical Decision Making - Medical Decision Making Medical decision-making. The patient's white count is 10 hemoglobin 15 hematocrit of 41. INR is 1.0. Potassium 4.2. BUN 9 creatinine 0.55 GFR greater than 60. Glucose 79. D-dimer normal at 0.29. Troponin less than 0.012. Chest x-ray is done and reviewed by radiologist his impression is no acute cardiopulmonary process. As read by Dr. Hazel Patient's currently chest pain-free. I spoke with , on-call hospitalist for a day. Patient will be admitted to her service for at least observation and further evaluation. Dr. Pina - Lab Data Result diagrams: 12/10/16 17:05 12/10/16 17:05 Lab Results 12/10/16 12/10/16 12/10/16 Range/Units 17:05 17:05 17:05 WBC 10.3 (3.8-10.6) k/uL RBC 4.40 (3.80-5.40) m/uL Hgb 15.0 (11.4-16.0) gm/dL Hct 41.9 (34.0-46.0) % MCV 95.4 (80.0-100.0) fL MCH 34.2 (25.0-35.0) pg MCHC 35.8 (31.0-37.0) g/dL RDW 12.8 (11.5-15.5) % Plt Count 186 (150-450) k/uL Neutrophils % 64 % Lymphocytes % 26 % Monocytes % 5 % Eosinophils % 4 % Basophils % 1 % Neutrophils # 6.6 (1.3-7.7) k/uL Lymphocytes # 2.7 (1.0-4.8) k/uL Monocytes # 0.5 (0-1.0) k/uL Eosinophils # 0.4 (0-0.7) k/uL Basophils # 0.1 (0-0.2) k/uL PT (9.0-12.0) sec INR (<1.2) APTT (22.0-30.0) sec D-Dimer (<0.60) mg/L FEU Sodium 139 (137-145) mmol/L Potassium 4.2 (3.5-5.1) mmol/L Chloride 104 (98-107) mmol/L Carbon Dioxide 24 (22-30) mmol/L Anion Gap 11 mmol/L BUN 9 (7-17) mg/dL Creatinine 0.55 (0.52-1.04) mg/dL Est GFR (MDRD) Af Amer >60 (>60 ml/min/1.73 sqM) Est GFR (MDRD) Non-Af >60 (>60 ml/min/1.73 sqM) Glucose 79 (74-99) mg/dL Calcium 9.8 (8.4-10.2) mg/dL Magnesium 1.9 (1.6-2.3) mg/dL Total Bilirubin 0.3 (0.2-1.3) mg/dL AST 21 (14-36) U/L ALT 40 (9-52) U/L Alkaline Phosphatase 69 (38-126) U/L Total Creatine Kinase 90 (30-135) U/L CK-MB (CK-2) 0.3 (0.0-2.4) ng/mL CK-MB (CK-2) Rel Index 0.3 Troponin I <0.012 (0.000-0.034) ng/mL Total Protein 7.1 (6.3-8.2) g/dL Albumin 4.3 (3.5-5.0) g/dL 12/10/16 Range/Units 17:05 WBC (3.8-10.6) k/uL RBC (3.80-5.40) m/uL Hgb (11.4-16.0) gm/dL Hct (34.0-46.0) % MCV (80.0-100.0) fL MCH (25.0-35.0) pg MCHC (31.0-37.0) g/dL RDW (11.5-15.5) % Plt Count (150-450) k/uL Neutrophils % % Lymphocytes % % Monocytes % % Eosinophils % % Basophils % % Neutrophils # (1.3-7.7) k/uL Lymphocytes # (1.0-4.8) k/uL Monocytes # (0-1.0) k/uL Eosinophils # (0-0.7) k/uL Basophils # (0-0.2) k/uL PT 10.2 (9.0-12.0) sec INR 1.0 (<1.2) APTT 24.2 (22.0-30.0) sec D-Dimer 0.29 (<0.60) mg/L FEU Sodium (137-145) mmol/L Potassium (3.5-5.1) mmol/L Chloride (98-107) mmol/L Carbon Dioxide (22-30) mmol/L Anion Gap mmol/L BUN (7-17) mg/dL Creatinine (0.52-1.04) mg/dL Est GFR (MDRD) Af Amer (>60 ml/min/1.73 sqM) Est GFR (MDRD) Non-Af (>60 ml/min/1.73 sqM) Glucose (74-99) mg/dL Calcium (8.4-10.2) mg/dL Magnesium (1.6-2.3) mg/dL Total Bilirubin (0.2-1.3) mg/dL AST (14-36) U/L ALT (9-52) U/L Alkaline Phosphatase (38-126) U/L Total Creatine Kinase (30-135) U/L CK-MB (CK-2) (0.0-2.4) ng/mL CK-MB (CK-2) Rel Index Troponin I (0.000-0.034) ng/mL Total Protein (6.3-8.2) g/dL Albumin (3.5-5.0) g/dL Disposition Clinical Impression: Chest pain at rest Disposition: ADMITTED IP TO THIS HOSP Condition: Fair Referrals: Malena Milner MD [Primary Care Provider] - 1-2 days
[2016-12-10 17:25] LABS: Basophils # (A) 0.1 k/uL (0-0.2); Basophils % (A) 1 %; CH 33.4; CHCM 35.2; Eosinophils # (A) 0.4 k/uL (0-0.7); Eosinophils % (A) 4 %; HCT 41.9 % (34.0-46.0); HDW 2.36; Luc % (Auto) 1; Lymphocytes # (A) 2.7 k/uL (1.0-4.8); Lymphocytes % (A) 26 %; MCH 34.2 pg (25.0-35.0); MCHC 35.8 g/dL (31.0-37.0); MCV 95.4 fL (80.0-100.0); Mean Platelet Volume 8.5; Monocytes # (A) 0.5 k/uL (0-1.0); Monocytes % (A) 5 %; Neutrophils # (A) 6.6 k/uL (1.3-7.7); Neutrophils % (A) 64 %; RDW 12.8 % (11.5-15.5); WBC 10.3 k/uL (3.8-10.6); WBC (Perox) 10.26
[2016-12-10 17:32] LABS: ALT 40 U/L (9-52); AST 21 U/L (14-36); Alkaline Phosphatase 69 U/L (38-126); Anion Gap 11 mmol/L; Blood Urea Nitrogen 9 mg/dL (7-17); Calcium 9.8 mg/dL (8.4-10.2); Carbon Dioxide 24 mmol/L (22-30); Chloride 104 mmol/L (98-107); Glucose 79 mg/dL (74-99); Magnesium 1.9 mg/dL (1.6-2.3); Non-African American GFR(MDRD) >60 (>60 ml/min/1.73 sqM); Potassium 4.2 mmol/L (3.5-5.1); Sodium 139 mmol/L (137-145); Total Bilirubin 0.3 mg/dL (0.2-1.3); Total Protein 7.1 g/dL (6.3-8.2)
[2016-12-10 17:40] LABS: Partial Thromboplastin Time 24.2 sec (22.0-30.0)
[2016-12-10 17:43] LABS: Creatine Kinase 90 U/L (30-135); Prothrombin Time 10.2 sec (9.0-12.0)
[2016-12-10 17:56] LABS: Creatine Kinase MB 0.3 ng/mL (0.0-2.4); Troponin I <0.012 ng/mL (0.000-0.034)
--- NOTE | 2016-12-10 18:07 | XR ---
EXAMINATION TYPE: XR chest 2V DATE OF EXAM: 12/10/2016 COMPARISON: May 20, 2016 HISTORY: Chest pain TECHNIQUE: Frontal and lateral views of the chest are obtained. FINDINGS: There is no focal air space opacity, pleural effusion, or pneumothorax seen. The cardiac silhouette size is within normal limits. The osseous structures are intact. Metallic object is iden tified in the region of the patient's mouth. IMPRESSION: No acute cardiopulmonary process.
[2016-12-10] MEDS ORDERED: METOCLOPRAMIDE 5 MG/ML 2 ML VIAL IVP STA (18:39)
[2016-12-10] MEDS ORDERED: HYDROmorphone 1 MG/ML 1 ML SYRINGE IVP STA (19:27)
[2016-12-10 20:46] VITALS: RESP 18
[2016-12-10] MEDS ORDERED: ZOLPIDEM 5 MG TAB PO PRN (20:52)
[2016-12-10] MEDS: ALPRAZolam 0.25 MG TAB PO PRN (21:02)
[2016-12-10] MEDS ORDERED: BUTALB/APAP/CAFF 50-325-40MG TAB PO PRN (21:03)
[2016-12-10] MEDS ORDERED: NICOTINE 21MG/24HR PATCH TRANSDERM SCH (21:15)
--- NOTE | 2016-12-10 22:01 | P.HPIM ---
History of Present Illness H&P Date: 12/10/16 Chief Complaint: Acute chest pain started today around noon This is a 44-year-old white female who presented with acute recurrent substernal chest pain described as squeezing heaviness radiating to his left shoulder and associated with some difficulty in breathing and nausea and sweats. The pain started today at noon while sitting doing nothing precipitating factor The first episode lasted for up to 10 minutes and resolved but came back 3 more times lasting seconds to minutes. Pain severity was 7/10 scale She felt nauseated but without vomiting. She denied palpitations or dizziness or syncope or orthopnea or paroxysmal nocturnal dyspnea. No leg swelling or pain. No acute visual problems or limb weakness. She had a previous cardiac problems or cardiac workup. She was supposed to see Dr Hammond for TIA. . CAD risk factors includes tobacco abuse and family history Stated that she has diagnosed with right kidney stones four days ago. She denied any active cough or fever or abdominal pain reflux symptoms . However , reported chest wall tenderness with pressing on chest Review of Systems Constitutional: Denies as per HPI, Denies anorexia, Denies chills, Denies chronic headaches, Denies daytime sleepiness, Denies fatigue, Denies fever, Denies lethargy, Denies malaise, Denies night sweats, Denies poor appetite, Denies sweats, Denies weakness, Denies weight gain, Denies weight loss Eyes: denies blurred vision, denies diplopia, denies pain, denies loss of vision Ears: deny: decreased hearing, ear discharge, earache, tinnitus Ears, nose, mouth and throat: Denies as per HPI, Denies ant. neck pain, Denies bleeding gums, Denies dental pain, Denies dysphagia, Denies epistaxis, Denies headache, Denies hoarseness, Denies mouth pain, Denies nasal congestion, Denies nasal discharge, Denies neck fullness/pressure, Denies neck lump, Denies nose pain, Denies odynophagia, Denies post-nasal drip, Denies sinus pain, Denies sinus pressure, Denies swelling in mouth, Denies swelling in throat, Denies sore throat, Denies vertigo, Denies voice changes Breasts: absent: change in shape, masses, pain, skin changes Cardiovascular: Reports chest pain, Reports shortness of breath, Denies as per HPI, Denies claudication, Denies decreased exercise tolerance, Denies dyspnea on exertion, Denies edema, Denies high blood pressure, Denies irregular heart beat, Denies leg edema, Denies lightheadedness, Denies orthopnea, Denies palpitations, Denies paroxysmal nocturnal dyspnea, Denies phlebitis, Denies rapid heart beat, Denies syncope Respiratory: Denies as per HPI, Denies congestion, Denies cough, Denies cough with sputum, Denies dyspnea, Denies excessive sputum, Denies hemoptysis, Denies home oxygen, Denies pain, Denies pain on inspiration, Denies pleurisy, Denies respiratory infections, Denies sleep apnea, Denies snoring, Denies wheezing Gastrointestinal: Denies as per HPI, Denies abdominal pain, Denies belching, Denies bloating, Denies BRBPR, Denies change in bowel habits, Denies coffee ground emesis, Denies constipation, Denies diarrhea, Denies dyspepsia, Denies early satiety, Denies excessive gas, Denies heartburn, Denies hematemesis, Denies hematochezia, Denies indigestion, Denies jaundice, Denies lactose intolerance, Denies loss of appetite, Denies melena, Denies nausea, Denies vomiting Genitourinary: Reports flank pain, Denies as per HPI, Denies abnormal vaginal bleeding, Denies decreased libido, Denies difficulty conceiving, Denies difficulty voiding, Denies dysmenorrhea, Denies dyspareunia, Denies dysuria, Denies genital sores, Denies hematuria, Denies hot flashes, Denies incomplete emptying, Denies kidney stones, Denies menorrhagia, Denies mixed incontinence, Denies nocturia, Denies pelvic pain, Denies post void dribbling, Denies , Denies prolapse symptoms, Denies stress incontinence, Denies urge incontinence , Denies urgency, Denies urinary frequency, Denies vaginal discharge, Denies vaginal dryness, Denies vaginal itching, Denies vaginal odor Menstruation: Denies as per HPI, Denies amenorrhea, Denies amenorrhea on BC, Denies currently menstrual, Denies cycle < 21 days, Denies cycle > 35 days, Denies cycle variable, Denies menses 1-7 days, Denies menses 8 or > days, Denies menses variable, Denies period heavy, Denies period light, Denies period normal, Denies period spotting, Denies post hysterectomy, Denies postmenopausal , Denies premenarcheal Musculoskeletal: Reports limitation of motion, Reports low back pain, Denies as per HPI, Denies arm numbness/tingling, Denies atrophy, Denies fractures, Denies frequent falls, Denies gait dysfunction, Denies hot joints, Denies leg numbness/ tingling, Denies loss of height, Denies morning stiffness, Denies muscle cramps , Denies muscle weakness, Denies myalgias, Denies neck pain, Denies neck stiffness, Denies prior amputations, Denies redness of joints, Denies shooting arm pain, Denies shooting leg pain Integumentary: Denies as per HPI, Denies acne, Denies boils, Denies brittle nails, Denies change in hair/nails, Denies color changes, Denies darkening of skin, Denies depigmentation, Denies dryness, Denies foot/leg ulcers, Denies growths, Denies hirsutism, Denies lesions, Denies onychomycosis, Denies pruritus , Denies rash, Denies sores, Denies striae, Denies unusual bruising, Denies wounds Neurological: Denies as per HPI, Denies aphasia, Denies ataxia, Denies balance difficulties, Denies burning pain, Denies change in mentation, Denies change in smell/taste, Denies change in speech, Denies confusion, Denies convulsions, Denies double vision, Denies gait dysfunction, Denies head injury, Denies hearing difficulties, Denies lack of coordination, Denies loss of vision, Denies memory loss, Denies migraines, Denies motor disturbance, Denies numbness , Denies paralysis, Denies paresthesias, Denies seizures, Denies sensory deficit , Denies spasticity, Denies syncope, Denies tic, Denies tingling, Denies transient paralysis, Denies tremors, Denies vertigo, Denies weakness, Denies visual changes Psychiatric: Denies as per HPI, Denies anhedonia, Denies anxiety, Denies anxiety attacks, Denies change in appetite, Denies change in libido, Denies change in sleep habits, Denies confusion, Denies depression, Denies difficulty concentrating, Denies disorientation, Denies hallucinations, Denies hopelessness , Denies hypersomnia, Denies insomnia, Denies irritability, Denies memory loss, Denies mood swings, Denies paranoia, Denies sadness/tearfulness, Denies sleep disturbances, Denies suicidal ideation Endocrine: Denies as per HPI, Denies cold intolerance, Denies deepening of the voice, Denies excessive sweating, Denies excessive thirst, Denies fatigue, Denies flushing, Denies heat intolerance, Denies high blood sugars, Denies increase in ring/shoe/hat size, Denies low blood sugars, Denies nocturia, Denies palpitations, Denies polydipsia, Denies polyphagia, Denies polyuria, Denies proptosis, Denies recent glucocorticoid use, Denies thyroid mass, Denies weight change Hematologic/Lymphatic: Denies as per HPI, Denies easy bleeding, Denies easy bruising, Denies lymphadenopathy, Denies lymphedema, Denies thrombophilia Allergic/Immunologic: Denies as per HPI, Denies allergic rhinitis, Denies anaphylaxis, Denies angioedema, Denies gluten intolerance, Denies persistent infections, Denies seasonal allergies, Denies urticaria, Denies wheezing Past Medical History Past Medical History: CVA/TIA, Osteoarthritis (OA) Additional Past Medical History / Comment(s): DDD. 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 Delgadillo's Esophagus. carpel tunnel B/L wrist History of Any Multi-Drug Resistant Organisms: None Reported Past Surgical History: Appendectomy, Cholecystectomy, Hysterectomy, Tubal Ligation Additional Past Surgical History / Comment(s): PAIN CLINIC PROCEDURES Past Anesthesia/Blood Transfusion Reactions: No Reported Reaction Smoking Status: Current every day smoker - Past Family History Mother Family Medical History: Diabetes Mellitus, Hypertension Additional Family Medical History / Comment(s): lupus Father Family Medical History: Unable to Obtain Additional Family Medical History / Comment(s): aunt and uncle mother side with CAD s/p CABG Medications and Allergies Home Medications Medication Instructions Recorded Confirmed Type Butalb/APAP/Caff 50-325-40Mg 1 tab PO Q8H PRN 02/18/16 12/10/16 History [Fioricet 50-325-40] Divalproex [Depakote] 250 mg PO BID 12/07/16 12/10/16 History Tamsulosin [Flomax] 0.4 mg PO DAILY #10 cap 12/07/16 12/10/16 Rx Hydrocodone/Acetaminophen [[place] 1 tab PO Q6HR PRN 12/10/16 12/10/16 History 5-325] Allergies Allergy/AdvReac Type Severity Reaction Status Date / Time codeine Allergy Unknown Verified 12/10/16 20:25 onion Allergy Unknown Verified 12/10/16 20:25 Physical Exam Vitals: Vital Signs Temp Pulse Pulse Resp BP BP Pulse Ox 12/10/16 20:00 97.9 F 75 18 115/78 96 12/10/16 19:20 97.8 F 94 20 138/85 97 12/10/16 16:12 98.3 F 115 H 20 122/76 99 Intake and Output 12/10/16 12/10/16 12/10/16 06:59 14:59 22:59 Other: Weight 69.8 kg Patient Weight 12/11/16 06:59 Weight 69.8 kg Patient alert oriented 3 not in distress No icterus or cyanosis or pallor HEENT : Normal exam NECK : Supple no bruits or masses or thyromegaly OR JVD CHEST : Mild sternal tenderness , CLEAR to auscultation and percussion . No added sounds HEART : S1 , S2 WNL , NO MURMUR,RUB OR GALLOP, APEX IN normal POSITION AND CHARACTER bREASTS : NOT EXAMINED ABDOMEN : Benign nontender , no masses, organomegaly, bruits Pelvic and rectal exams were not done PARTS TECHNICIAN : Intact cranial nerves, reflexes and sensation system or in 4 extremities lEGS : No edema,NO DVT, Normal distal pulses Musculoskeletal system no acute pathology Skin: No acute pathology psych : stable - Neck Carotids: bilateral: upstroke normal Thyroid: bilateral: normal size - Cardiovascular Rhythm: regular Heart sounds: normal: S1, S2 Abnormal Heart Sounds: no systolic murmur, no diastolic murmur, no rub, no S3 Gallop, no S4 Gallop, no click, no other - Neurologic Neurologic: CNII-XII intact - Musculoskeletal Musculoskeletal: gait normal, strength equal bilaterally - Psychiatric Psychiatric: A&O x's 3, appropriate affect, intact judgment & insight Results CBC & Chem 7: 12/10/16 17:05 12/10/16 17:05 Chest x-ray: other (EKG : NSR , No acute changes) Abdominal x-ray: other (Troponin : negative) Thrombosis Risk Factor Assmnt - Choose All That Apply Any of the Below Risk Factors Present?: No Assessment and Plan (1) Chest pain at rest Narrative/Plan: Atypical chest pain at rest and non exertional MN ruled out so far , negative EKG We will arrange for exercise stress echo Cardiology consultation Serial cardiac enzymes and EKGs Nitroglycerin when necessary Aspirin therapy telemetry monitoring Status: Acute (2) Kidney stone Narrative/Plan: Diagnosed 4 days ago Symptomatic consider urology consultation Status: Suspected (3) Headache Narrative/Plan: Diagnosed with hemiplegic migrain headaches Stable nodule continue current medications including Depakote and Fiorecit Status: Chronic (4) CVA (cerebral vascular accident) Narrative/Plan: She reported possible TIA with transient left-sided weakness Appointment to see Dr. Hammond as outpatient Continue aspirin recommend carotid ultrasound Doppler study Status: Chronic (5) Chronic back pain Narrative/Plan: Chronic low back pain problem due to degenerative disc disease She receives injections Continue [place] when necessary Status: Chronic Plan: Admit to telemetry with a MN rule out protocol and chest pain protocol Cardiology consultation and ischemic workup with exercise stress echo Observation status Expect 23 hrs observation stay
[2016-12-11] MEDS: HYDROcodone/APAP 5-325MG 1 EACH TAB PO PRN ×2 (00:30→11:26)
[2016-12-11] MEDS: ONDANSETRON 4 MG/2 ML VIAL IVP PRN ×2 (00:30→11:26)
[2016-12-11 03:51] LABS: Creatine Kinase 67 U/L (30-135)
[2016-12-11 04:04] LABS: Creatine Kinase MB 0.3 ng/mL (0.0-2.4); Troponin I <0.012 ng/mL (0.000-0.034)
[2016-12-11] MEDS ORDERED: DOBUTamine DRIP for NUC MED 500 MG in DEXTROSE/WATER 1 250ML.BAG IV ONE (08:21)
--- NOTE | 2016-12-11 08:26 | P.CRDCN ---
History of Present Illness History of present illness: Vision intubated and examined. Chest discomfort while sitting, under the breast and on the left side mildly tender chest wall was certainly not severe. History of smoking history of recurrent chest discomfort Normal cardiac enzymes 2, normal d-dimer normal labs No ECG abnormalities noted Plan Dobutamine stress echo, if normal, we will sign off from a cardiac standpoint and she can follow-up with her primary physical chemistry professor as scheduled Please see full consult by nurse practitioner Past Medical History Past Medical History: CVA/TIA, Osteoarthritis (OA) Additional Past Medical History / Comment(s): DDD. 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 Delgadillo's Esophagus. carpel tunnel B/L wrist History of Any Multi-Drug Resistant Organisms: None Reported Past Surgical History: Appendectomy, Cholecystectomy, Hysterectomy, Tubal Ligation Additional Past Surgical History / Comment(s): PAIN CLINIC PROCEDURES Past Anesthesia/Blood Transfusion Reactions: No Reported Reaction Smoking Status: Current every day smoker - Past Family History Mother Family Medical History: Diabetes Mellitus, Hypertension Additional Family Medical History / Comment(s): lupus Father Family Medical History: Unable to Obtain Additional Family Medical History / Comment(s): aunt and uncle mother side with CAD s/p CABG Medications and Allergies Home Medications Medication Instructions Recorded Confirmed Type Butalb/APAP/Caff 50-325-40Mg 1 tab PO Q8H PRN 02/18/16 12/10/16 History [Fioricet 50-325-40] Divalproex [Depakote] 250 mg PO BID 12/07/16 12/10/16 History Tamsulosin [Flomax] 0.4 mg PO DAILY #10 cap 12/07/16 12/10/16 Rx Hydrocodone/Acetaminophen [[place] 1 tab PO Q6HR PRN 12/10/16 12/10/16 History 5-325] Allergies Allergy/AdvReac Type Severity Reaction Status Date / Time codeine Allergy Unknown Verified 12/10/16 20:25 onion Allergy Unknown Verified 12/10/16 20:25 Physical Exam Vitals: Vital Signs Temp Pulse Pulse Resp BP BP Pulse Ox 12/11/16 08:00 98.1 F 68 18 96/53 98 12/11/16 04:00 97.8 F 65 18 103/56 99 12/11/16 03:44 18 12/11/16 00:00 18 12/10/16 23:26 97.9 F 70 18 119/81 97 12/10/16 20:00 97.9 F 75 18 115/78 96 12/10/16 19:20 97.8 F 94 20 138/85 97 12/10/16 16:12 98.3 F 115 H 20 122/76 99 Intake and Output 12/10/16 12/11/16 12/11/16 22:59 06:59 14:59 Other: # Voids 1 Weight 69.8 kg Results 12/10/16 17:05 12/10/16 17:05 Cardiac Enzymes 12/10/16 12/10/16 12/11/16 Range/Units 17:05 17:05 02:59 AST 21 (14-36) U/L CK-MB (CK-2) 0.3 0.3 (0.0-2.4) ng/mL Troponin I <0.012 <0.012 (0.000-0.034) ng/mL Coagulation 12/10/16 Range/Units 17:05 PT 10.2 (9.0-12.0) sec APTT 24.2 (22.0-30.0) sec CBC 12/10/16 Range/Units 17:05 WBC 10.3 (3.8-10.6) k/uL RBC 4.40 (3.80-5.40) m/uL Hgb 15.0 (11.4-16.0) gm/dL Hct 41.9 (34.0-46.0) % Plt Count 186 (150-450) k/uL Comprehensive Metabolic Panel 12/10/16 Range/Units 17:05 Sodium 139 (137-145) mmol/L Potassium 4.2 (3.5-5.1) mmol/L Chloride 104 (98-107) mmol/L Carbon Dioxide 24 (22-30) mmol/L BUN 9 (7-17) mg/dL Creatinine 0.55 (0.52-1.04) mg/dL Glucose 79 (74-99) mg/dL Calcium 9.8 (8.4-10.2) mg/dL AST 21 (14-36) U/L ALT 40 (9-52) U/L Alkaline Phosphatase 69 (38-126) U/L Total Protein 7.1 (6.3-8.2) g/dL Albumin 4.3 (3.5-5.0) g/dL Current Medications Generic Name Dose Route Start Last Admin Trade Name Freq PRN Reason Stop Dose Admin Acetaminophen/Butalbital/Caffeine 1 each 12/10/16 21:03 Fioricet 50-325-40 PO Q8H PRN Migraine Headache Hydrocodone Bitart/Acetaminophen 1 each 12/10/16 21:05 12/11/16 00:30 [place] 5-325 PO 1 each Q6HR PRN Administration Moderate Pain Alprazolam 0.25 mg 12/10/16 20:51 12/10/16 21:02 Xanax PO 0.25 mg Q12HR PRN Administration Anxiety Aspirin 325 mg 12/11/16 09:00 Aspirin PO DAILY [facility] Divalproex Sodium 250 mg 12/11/16 09:00 Depakote PO BID JACOBO Dobutamine HCl/Dextrose 500 mg 250 mls @ 20.94 mls/hr 12/11/16 08:21 / IV Solution IV 12/11/16 08:22 .[id number] ONE Protocol 10 MCG/KG/MIN Nicotine 1 patch 12/10/16 21:15 12/10/16 21:32 Habitrol 21mg/24hr Patch TRANSDERM 1 patch HS JACOBO Administration Ondansetron HCl 4 mg 12/11/16 00:00 12/11/16 00:30 Zofran IVP 4 mg Q6HR PRN Administration Nausea And Vomiting Tamsulosin HCl 0.4 mg 12/11/16 09:00 Flomax PO DAILY [facility] Zolpidem Tartrate 5 mg 12/10/16 20:52 12/10/16 21:03 Ambien PO 5 mg HS PRN Administration Insomnia Intake and Output 12/10/16 12/11/16 12/11/16 22:59 06:59 14:59 Other: # Voids 1 Weight 69.8 kg 12/10/16 17:05 12/10/16 17:05
[2016-12-11 08:43] LABS: Creatine Kinase 63 U/L (30-135)
[2016-12-11 08:56] LABS: Creatine Kinase MB 0.3 ng/mL (0.0-2.4); Troponin I <0.012 ng/mL (0.000-0.034)
[2016-12-11] MEDS ORDERED: DIVALPROEX 250 MG TABLET.DR PO SCH (09:00)
[2016-12-11] MEDS ORDERED: TAMSULOSIN 0.4 MG CAP.ER.24H PO SCH (09:00)
[2016-12-11] MEDS ORDERED: ASPIRIN 325 MG TAB PO SCH (09:00)
--- NOTE | 2016-12-11 11:05 | P.CRDCN ---
History of Present Illness Consult date: 12/11/16 History of present illness: This is a 41-year-old female. Past medical history significant for TIA. Patient presents with complaints of chest discomfort while sitting. She states it is under the left breast. Last for approximately 4 minutes. Was associated with mild nausea, shortness of breath and dizziness. She states she has never experienced pain like this in the past. The discomfort went away on its own with no aggravating or alleviating factors verbalized. She is seen Dr. Hammond in the past for cardiac workup secondary to TIA. She underwent an exercise stress test in the office which was inconclusive due to poor exercise tolerance. She was recommended to follow-up with a 2-D echocardiogram and never did. She has a chronic every day smoker. D-dimer normal. EKG done shows normal sinus mechanism with no T-wave abnormality. When compared with old EKG this appears consistent. Troponins are normal x 2. Chest x-ray showed no acute cardiopulmonary process. Review of Systems Extensive review of systems performed, negative except mentioned in HPI. Past Medical History Past Medical History: CVA/TIA, Osteoarthritis (OA) Additional Past Medical History / Comment(s): DDD. 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 Delgadillo's Esophagus. carpel tunnel B/L wrist History of Any Multi-Drug Resistant Organisms: None Reported Past Surgical History: Appendectomy, Cholecystectomy, Hysterectomy, Tubal Ligation Additional Past Surgical History / Comment(s): PAIN CLINIC PROCEDURES Past Anesthesia/Blood Transfusion Reactions: No Reported Reaction Smoking Status: Current every day smoker - Past Family History Mother Family Medical History: Diabetes Mellitus, Hypertension Additional Family Medical History / Comment(s): lupus Father Family Medical History: Unable to Obtain Additional Family Medical History / Comment(s): aunt and uncle mother side with CAD s/p CABG Medications and Allergies Home Medications Medication Instructions Recorded Confirmed Type Butalb/APAP/Caff 50-325-40Mg 1 tab PO Q8H PRN 02/18/16 12/10/16 History [Fioricet 50-325-40] Divalproex [Depakote] 250 mg PO BID 12/07/16 12/10/16 History Tamsulosin [Flomax] 0.4 mg PO DAILY #10 cap 12/07/16 12/10/16 Rx Hydrocodone/Acetaminophen [[place] 1 tab PO Q6HR PRN 12/10/16 12/10/16 History 5-325] Allergies Allergy/AdvReac Type Severity Reaction Status Date / Time codeine Allergy Unknown Verified 12/10/16 20:25 onion Allergy Unknown Verified 12/10/16 20:25 Physical Exam Vitals: Vital Signs Temp Pulse Pulse Resp BP BP Pulse Ox 12/11/16 08:00 98.1 F 68 18 96/53 98 12/11/16 04:00 97.8 F 65 18 103/56 99 12/11/16 03:44 18 12/11/16 00:00 18 12/10/16 23:26 97.9 F 70 18 119/81 97 12/10/16 20:00 97.9 F 75 18 115/78 96 12/10/16 19:20 97.8 F 94 20 138/85 97 12/10/16 16:12 98.3 F 115 H 20 122/76 99 Intake and Output 12/10/16 12/11/16 12/11/16 22:59 06:59 14:59 Other: # Voids 1 Weight 69.8 kg GENERAL: This is a 41-year-old female in no apparent distress at the time of my examination. HEENT: Head is atraumatic, normocephalic. Pupils are equal, round. Sclerae anicteric. Conjunctivae are clear. Mucous membranes of the mouth are moist. Neck is supple. There is no jugular venous distention. No carotid bruit is heard. LUNGS: Clear to auscultation no wheezes, rales or rhonchi. No chest wall tenderness is noted on palpation or with deep breathing. HEART: Regular rate and rhythm without murmurs, rubs or gallops. S1 and S2 heard. ABDOMEN: Soft, nontender. Bowel sounds are heard. No organomegaly noted. EXTREMITIES: 2+ peripheral pulses with no evidence of peripheral edema and no calf tenderness noted. NEUROLOGIC: Patient is awake, alert and oriented x3. Results 12/10/16 17:05 12/10/16 17:05 Cardiac Enzymes 12/10/16 12/10/16 12/11/16 Range/Units 17:05 17:05 02:59 AST 21 (14-36) U/L CK-MB (CK-2) 0.3 0.3 (0.0-2.4) ng/mL Troponin I <0.012 <0.012 (0.000-0.034) ng/mL 12/11/16 Range/Units 08:06 AST (14-36) U/L CK-MB (CK-2) 0.3 (0.0-2.4) ng/mL Troponin I <0.012 (0.000-0.034) ng/mL Coagulation 12/10/16 Range/Units 17:05 PT 10.2 (9.0-12.0) sec APTT 24.2 (22.0-30.0) sec CBC 12/10/16 Range/Units 17:05 WBC 10.3 (3.8-10.6) k/uL RBC 4.40 (3.80-5.40) m/uL Hgb 15.0 (11.4-16.0) gm/dL Hct 41.9 (34.0-46.0) % Plt Count 186 (150-450) k/uL Comprehensive Metabolic Panel 12/10/16 Range/Units 17:05 Sodium 139 (137-145) mmol/L Potassium 4.2 (3.5-5.1) mmol/L Chloride 104 (98-107) mmol/L Carbon Dioxide 24 (22-30) mmol/L BUN 9 (7-17) mg/dL Creatinine 0.55 (0.52-1.04) mg/dL Glucose 79 (74-99) mg/dL Calcium 9.8 (8.4-10.2) mg/dL AST 21 (14-36) U/L ALT 40 (9-52) U/L Alkaline Phosphatase 69 (38-126) U/L Total Protein 7.1 (6.3-8.2) g/dL Albumin 4.3 (3.5-5.0) g/dL Current Medications Generic Name Dose Route Start Last Admin Trade Name Freq PRN Reason Stop Dose Admin Acetaminophen/Butalbital/Caffeine 1 each 12/10/16 21:03 Fioricet 50-325-40 PO Q8H PRN Migraine Headache Hydrocodone Bitart/Acetaminophen 1 each 12/10/16 21:05 12/11/16 00:30 [place] 5-325 PO 1 each Q6HR PRN Administration Moderate Pain Alprazolam 0.25 mg 12/10/16 20:51 12/10/16 21:02 Xanax PO 0.25 mg Q12HR PRN Administration Anxiety Aspirin 325 mg 12/11/16 09:00 Aspirin PO DAILY [facility] Divalproex Sodium 250 mg 12/11/16 09:00 Depakote PO BID JACOBO Nicotine 1 patch 12/10/16 21:15 12/10/16 21:32 Habitrol 21mg/24hr Patch TRANSDERM 1 patch HS JACOBO Administration Ondansetron HCl 4 mg 12/11/16 00:00 12/11/16 00:30 Zofran IVP 4 mg Q6HR PRN Administration Nausea And Vomiting Tamsulosin HCl 0.4 mg 12/11/16 09:00 Flomax PO DAILY [facility] Zolpidem Tartrate 5 mg 12/10/16 20:52 12/10/16 21:03 Ambien PO 5 mg HS PRN Administration Insomnia Intake and Output 12/10/16 12/11/16 12/11/16 22:59 06:59 14:59 Other: # Voids 1 Weight 69.8 kg 12/10/16 17:05 12/10/16 17:05 EKG Interpretations (text) EKG reveals normal sinus mechanism with no ST or T-wave abnormalities. Assessment and Plan Plan: ASSESSMENT 1. Chest pain, atypical 2. Chronic tobacco abuse PLAN Dobutamine stress echo, if normal we will sign off from a cardiac standpoint she can follow-up with Dr. Hammond in 2 weeks. Smoking cessation was discussed at length. Thank you kindly for this consultation. Nurse Practitioner note has been reviewed, I agree with a documented findings and plan of care. Patient was seen and examined.
[2016-12-11] MEDS: ALPRAZolam 0.25 MG TAB PO PRN (11:32)
[2016-12-11 11:42] VITALS: BP 122/77; PULSE 83; TEMP 97.6
--- NOTE | 2016-12-11 14:49 | ECHOS ---
STRESS ECHOCARDIOGRAM INDICATIONS: Chest pain. BASELINE HEART RATE: 67 BASELINE BLOOD PRESSURE: 103/71 MAXIMUM HEART RATE: 153 MAXIMUM BLOOD PRESSURE: 127/55 85% MPHR: 153 100% MPHR: 180 MAXIMUM STAGE REACHED: 5 TOTAL EXERCISE TIME: 13:15 CLINICAL INFORMATION: Patient admitted with recurrent chest discomfort. Cardiac enzymes are normal. She underwent a dobutamine stress echo. She has poor exercise capacity. Baseline tracing showed sinus rhythm, with normal cardiac as well as normal ST segments. Patient received dobutamine infusion per protocol. Heart rate and blood pressure remained normal, peak heart rate 153 beats per minute. There was no ECG evidence of ischemia. No dobutamine induced arrhythmias were noted. Baseline 2D echo images showed normal LV size and systolic function without segmental wall motion abnormalities. There is a stepwise increment in overall LV contractility without developing any wall motion abnormalities. At recovery, lesion though below normal systolic function remain normal. IMPRESSION: Normal dobutamine stress echo without evidence for ischemia. No arrhythmias were noted. MMODL / IJN: [id number] /
--- NOTE | 2016-12-11 14:55 | ECHOF ---
Referral Reason:chest pain MEASUREMENTS -------- HEIGHT: 154.9 cm WEIGHT: 69.4 kg BP: 103/51 RVIDd: 2.7 cm (< 3.3) IVSd: 1.1 cm (0.6 - 1.1) LVIDd: 3.4 cm (3.9 - 5.3) LVPWd: 1.0 cm (0.6 - 1.1) IVSs: 1.3 cm LVIDs: 2.6 cm LVPWs: 1.5 cm Ao Diam: 2.8 cm (2.0 - 3.7) AV Cusp: 1.6 cm (1.5 - 2.6) LA Diam: 3.0 cm (2.7 - 3.8) MV EXCURSION: 16.920 mm (> 18.000) MV EF SLOPE: 92 mm/s (70 - 150) EPSS: 1.0 cm MV E Daniel: 1.00 m/s MV DecT: 266 ms MV A Daniel: 0.92 m/s MV E/A Ratio: 1.09 RAP: 5.00 mmHg RVSP: 10.74 mmHg FINDINGS -------- Sinus rhythm. This was a technically good study. Left ventricular wall thickness is normal. Overall left ventricular systolic function is normal with, an EF between 55 - 60 %. The right ventricle is normal in size and function. The left atrium is normal in size. The right atrium is normal in size. Cannot exclude shunt in the intratrial septum. Dropout seen. The aortic valve is trileaflet, and appears structurally normal. No aortic stenosis or regurgitation. Mild mitral regurgitation is present. Trace tricuspid regurgitation present. The right ventricular systolic pressure, as measured by Doppler, is 10.74mmHg. Pulmonic valve appears structurally normal. The aortic root size is normal. Normal inferior vena cava with normal inspiratory collapse consistent with estimated right atrial pressure of 5 mmHg. The pericardium is normal. CONCLUSIONS -------- 1. Sinus rhythm. 2. Mild mitral regurgitation is present. 3. Trace tricuspid regurgitation present. 4. The right ventricular systolic pressure, as measured by Doppler, is 10.74mmHg. 5. Pulmonic valve appears structurally normal. 6. The aortic root size is normal. 7. Normal inferior vena cava with normal inspiratory collapse consistent with estimated right atrial pressure of 5 mmHg. 8. The pericardium is normal. 9. This was a technically good study. 10. Left ventricular wall thickness is normal. 11. Overall left ventricular systolic function is normal with, an EF between 55 - 60 %. 12. The right ventricle is normal in size and function. 13. The left atrium is normal in size. 14. The right atrium is normal in size. 15. Cannot exclude shunt in the intratrial septum. Dropout seen. 16. The aortic valve is trileaflet, and appears structurally normal. No aortic stenosis or regurgitation. BEHAVIORAL SCIENCES DEPARTMENT CHAIR: Wendi Hayes RDCS
[2016-12-11] MEDS ORDERED: KETOROLAC 30 MG/ML 1 ML VIAL IVP STA (15:22)
--- NOTE | 2016-12-11 18:23 | P.PN ---
Subjective Principal diagnosis: patient was seen and examined in follow up for chest pain rule out, and right flank pain 41 year old female with long history of smoking, presented with a CC of sudden onset chest pain while at rest which she did not try taking any medication for but was concerned as it has never happened before, lasted few minutes and then resolved on its own. She was seen by cardiology as outpatient in the past due to TIA workup and an exercise stress test performed and was inconclusive due to poor exercise tolerance. currently she reports complete resolution of chest pain , awaiting results of stress test. she reports some right flank pain , she was recently told that she had 3 kidney stones, denies any changes in her urine stream or hematuria, she was taking flomax at home, and now pain controlled with IV opioids Objective - Vital Signs Vital signs: Vital Signs Temp 97.6 F 12/11/16 11:40 Pulse 83 12/11/16 11:40 Resp 18 12/11/16 11:40 BP 122/77 12/11/16 11:40 Pulse Ox 97 12/11/16 11:40 Intake & Output 12/10/16 12/11/16 12/11/16 18:59 06:59 18:59 Intake Total 420 Balance 420 Weight 69.853 kg 69.8 kg Intake: Oral 420 Other: # Voids 1 - Exam Constitutional: vital signs stable, Not in acute distress, pleasant, conversant Lungs: Clear to auscultation bilaterally, clear to percussion, normal respiratory effort no use of accessory muscles Cardiovascular: Regular rate and rhythm, no murmurs, no gallops, no rubs, no peripheral edema Gastrointestinal: Soft, no tenderness to palpation, no palpable hepatosplenomegally, bowel sounds positive, Tenderness to percussion over the right costophrenic angle Extremities: No digital cyanosis or clubbing, peripheral pulses palpable and equal over bilateral radial arteries and dorsalis pedis artery, no calf muscle tenderness Psych: Alert, oriented to place, person and time - Labs CBC & Chem 7: 12/10/16 17:05 12/10/16 17:05 Assessment and Plan (1) Atypical chest pain Narrative/Plan: Cardiology is following Continue with aspirin, statin and beta blockers Await stress test results Monitor vital signs closely Status: Acute (2) History of TIA (transient ischemic attack) Narrative/Plan: Continue with aspirin and statin Status: Acute (3) Kidney stone Narrative/Plan: Continue with Flomax Continue with IV opiates, patient is is reporting that only Dilaudid is working Continue with IV fluid hydration Straining of urine Status: Suspected (4) DVT prophylaxis Narrative/Plan: heparin subcu Status: Acute Plan: Tobacco smoking abuse Patient counseled to quit smoking Holding nicotine replacement therapy at this time until acute coronary syndrome is ruled out Case discussed with cardiology, if stress test is negative patient is cleared for discharge and to follow up with her cardiology within 1-2 weeks
--- NOTE | 2016-12-11 18:34 | P.DS ---
Providers Date of admission: 12/10/16 19:13 Expected date of discharge: 12/11/16 Attending physician: Porsche Mckinnon DO Consults: 12/10/16 21:08 Consult Physician Routine Consulting Provider: Jimmy Hammond Consult Reason/Comments: chest pain Do you want consulting provider notified?: Yes Primary care physician: Malena Milner - Discharge Diagnosis(es) (1) Atypical chest pain Status: Acute (2) History of TIA (transient ischemic attack) Status: Acute (3) Kidney stone Status: Suspected Priority: Low Onset Date: ~12/06/16 (4) DVT prophylaxis Status: Acute Hospital Course: 41-year-old female with history of TIA, history of heavy smoking, and recurrent kidney stones presented with sudden onset chest pain with atypical features. Patient has recently underwent cardiac workup with her private application performance engineer but she could not tolerate the exercise stress test and was terminated prematurely. Results were reported as inconclusive. Patient admitted for observation and stress test was performed and was negative for any ischemia. Please refer to progress note dated 12/11/2016 for vital signs physical exam in [id number]. patient reports right flank pain colicky in nature and eyes any hematuria or dysuria she reports that she has recently been told that she has kidney stones, patient encouraged to increase water intake, Flomax and NSAIDs for pain control as prescribed. Patient was instructed to strain the urine home. More than 35 minutes were spent discharging this patient, and more than 50% of the time was spent in counseling the patient and family and in coordinating care. Pertinent Studies: Dobutamine Stress test was negative for any evidence of ischemia or arrhythmias Patient Condition at Discharge: Stable Plan - Discharge Summary New Discharge Prescriptions: New Ketorolac [Toradol] 10 mg PO Q6HR PRN #20 tab PRN Reason: Pain Nicotine 21Mg/24Hr Patch [Habitrol] 1 patch TRANSDERM HS patch Omeprazole [PriLOSEC] 20 mg PO AC-BID #20 cap Continue Butalb/APAP/Caff 50-325-40Mg [Fioricet 50-325-40] 1 tab PO Q8H PRN PRN Reason: Migraine Headache Divalproex [Depakote] 250 mg PO BID Tamsulosin [Flomax] 0.4 mg PO DAILY #10 cap Hydrocodone/Acetaminophen [[place] 5-325] 1 tab PO Q6HR PRN PRN Reason: Pain Discharge Medication List Butalb/APAP/Caff 50-325-40Mg [Fioricet 50-325-40] 1 tab PO Q8H PRN 02/18/16 [ History] Divalproex [Depakote] 250 mg PO BID 12/07/16 [History] Tamsulosin [Flomax] 0.4 mg PO DAILY #10 cap 12/07/16 [Rx] Hydrocodone/Acetaminophen [[place] 5-325] 1 tab PO Q6HR PRN 12/10/16 [History] Ketorolac [Toradol] 10 mg PO Q6HR PRN #20 tab 12/11/16 [Rx] Nicotine 21Mg/24Hr Patch [Habitrol] 1 patch TRANSDERM HS patch 12/11/16 [Rx] Omeprazole [PriLOSEC] 20 mg PO AC-BID #20 cap 12/11/16 [Rx] Follow up Appointment(s)/Referral(s): Jimmy Hammond MD [STAFF PHYSICIAN] - 2 Weeks Malena Milner MD [Primary Care Provider] - 1-2 days Patient Instructions/Handouts: Chest Pain (GEN), Kidney Stones (GEN), Renal Colic (GEN), Safe Use of NSAIDs (GEN) Activity/Diet/Wound Care/Special Instructions: activity as tolerated diet as tolerated keep well hydrated follow up with your application performance engineer for further recommendations, your stress test was negative while in the hospital follow up with your PCP regarding your kidney stone Discharge Disposition: HOME SELF-CARE
== END 2016-12-11 15:58 | disposition home or self-care (01) ==
LOC: EC 15:49 → 3SUR 19:13 → 3OBS 12-11 07:08
PROVIDERS: ADMIT Internal Medicine; ATTEND Internal Medicine
DX: R07.89 Other chest pain (principal); R61 Generalized hyperhidrosis; R11.0 Nausea; R07.2 Precordial pain; R42 Dizziness and giddiness; G89.29 Other chronic pain; R06.02 Shortness of breath; M54.5 Low back pain; G43.409 Hemiplegic migraine, not intractable, without status migrainosus; I69.354 Hemiplegia and hemiparesis following cerebral infarction affecting left non-dominant side; F41.9 Anxiety disorder, unspecified; F17.200 Nicotine dependence, unspecified, uncomplicated; N20.0 Calculus of kidney; Z79.899 Other long term (current) drug therapy; Z88.5 Allergy status to narcotic agent; Z91.018 Allergy to other foods; Z83.3 Family history of diabetes mellitus; Z82.49 Family history of ischemic heart disease and other diseases of the circulatory system
CPT/HCPCS: 99285; 96374; 96375 ×3; 96376; 36415; 93005; 93017; 93306; 93350; 85379; 80053; 82550 ×2; 82553 ×2; 83735; 84484 ×2; 85025; 85610; 85730; 71020; G0378 ×2; S4990; J1250; J2765; J2405; J1885; J1170

== ENCOUNTER 2017-04-09 17:28 | Emergency (ER) | payer OTHER ==
[2017-04-09] MEDS ORDERED: SODIUM CHLORIDE 0.9% 1,000 ML IV STA (18:12)
[2017-04-09] MEDS ORDERED: HYDROmorphone 2 MG/ML 1 ML SYRINGE IVP STA (18:12)
[2017-04-09] MEDS ORDERED: ONDANSETRON 4 MG/2 ML VIAL IVP STA ×2 (18:12→19:20)
--- NOTE | 2017-04-09 18:16 | ED ---
General Adult HPI - General Source: patient, RN notes reviewed Mode of arrival: ambulatory Limitations: no limitations <Jl Rivas - Last Filed: 04/09/17 19:40> <Sunil Malin - Last Filed: 04/09/17 21:00> - General Chief complaint: Abdominal Pain Stated complaint: POSS KIDNEY STONE, POSS SEIZURE Time Seen by Provider: 04/09/17 18:01 - History of Present Illness Initial comments: Patient is a 41-year-old female who presents emergency room today with a chief complaint of right-sided flank pain. She does admit that symptoms started a few days ago but increased today. She describes sharp pain starting in the right flank radiating down to the right groin. States feels consistent with kidney stones or sediment past. She admits to diarrhea. She denies any signs of blood. She does been feeling nauseated. Denies any other points associated symptoms. Patient denies any recent fever, chills, shortness of breath, chest pain, numbness or tingling, dysuria or hematuria, constipation, headaches or visual changes, or any other complaints. (Jl Rivas) - Related Data Home Medications Medication Instructions Recorded Confirmed Butalb/APAP/Caff 50-325-40Mg 1 tab PO Q8H PRN 02/18/16 04/09/17 [Fioricet 50-325-40] Divalproex [Depakote] 250 mg PO BID 12/07/16 04/09/17 Acetaminophen [Tylenol Extra 1,000 mg PO BID PRN 04/09/17 04/09/17 Strength] Cyclobenzaprine [Flexeril] 10 mg PO BID 04/09/17 04/09/17 Etodolac [Lodine] 400 mg PO BID 04/09/17 04/09/17 Ibuprofen [Motrin] 400 mg PO Q6HR PRN 04/09/17 04/09/17 Previous Rx's Medication Instructions Recorded Ondansetron Odt [Zofran ODT] 4 mg PO Q8HR PRN #20 tab 04/09/17 Allergies Allergy/AdvReac Type Severity Reaction Status Date / Time codeine Allergy Unknown Verified 04/09/17 18:25 onion Allergy Unknown Verified 04/09/17 18:25 Review of Systems ROS Other: All systems not noted in ROS Statement are negative. <Jl Rivas - Last Filed: 04/09/17 19:40> ROS Other: All systems not noted in ROS Statement are negative. <Sunil Malin - Last Filed: 04/09/17 21:00> ROS Statement: Those systems with pertinent positive or pertinent negative responses have been documented in the HPI. Past Medical History Past Medical History: CVA/TIA, Osteoarthritis (OA) Additional Past Medical History / Comment(s): DDD. 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 Delgadillo's Esophagus. carpel tunnel B/L wrist, kidney stones History of Any Multi-Drug Resistant Organisms: None Reported Past Surgical History: Appendectomy, Cholecystectomy, Hysterectomy, Tubal Ligation Additional Past Surgical History / Comment(s): PAIN CLINIC PROCEDURES Past Anesthesia/Blood Transfusion Reactions: No Reported Reaction Past Psychological History: Anxiety Smoking Status: Current every day smoker Past Alcohol Use History: None Reported Past Drug Use History: None Reported - Past Family History Mother Family Medical History: Diabetes Mellitus, Hypertension Additional Family Medical History / Comment(s): lupus Father Family Medical History: Unable to Obtain Additional Family Medical History / Comment(s): aunt and uncle mother side with CAD s/p CABG <RobJl - Last Filed: 04/09/17 19:40> General Exam Limitations: no limitations <RobJl - Last Filed: 04/09/17 19:40> <Sunil Malin - Last Filed: 04/09/17 21:00> - General Exam Comments Initial Comments: General: The patient is awake and alert, in no distress, and does not appear acutely ill. Eye: Pupils are equal, round and reactive to light, extra-ocular movements are intact. No nystagmus. There is normal conjunctiva bilaterally. No signs of icterus. Ears, nose, mouth and throat: There are moist mucous membranes and no oral lesions. Neck: The neck is supple, there is no tenderness or JVD. Cardiovascular: There is a regular rate and rhythm. No murmur, rub or gallop is appreciated. Respiratory: Lungs are clear to auscultation, respirations are non-labored, breath sounds are equal. No wheezes, stridor, rales, or rhonchi. Gastrointestinal: Normal appearance abdomen. Normal bowel tones. Abdomen soft on palpation. Patient does have tenderness to the right flank. No rebound tenderness. No guarding. Musculoskeletal: Normal ROM, no tenderness. Strength 5/5. Sensation intact. Pulses equal bilaterally 2+. Neurological: A&O x 3. CN II-XII intact, There are no obvious motor or sensory deficits. Coordination appears grossly intact. Speech is normal. Skin: Skin is warm and dry and no rashes or lesions are noted. Psychiatric: Cooperative, appropriate mood & affect, normal judgment. (Jl Rivas) Vital Signs 04/09/17 04/09/17 17:59 19:32 Temperature 98.6 F 98.2 F Pulse Rate 95 70 Respiratory 20 16 Rate Blood Pressure 138/81 150/72 O2 Sat by Pulse 97 96 Oximetry Medical Decision Making - Lab Data Result diagrams: 04/09/17 18:49 04/09/17 18:49 <Jl Rivas - Last Filed: 04/09/17 19:40> - Lab Data Result diagrams: 04/09/17 18:49 04/09/17 18:49 <Sunil Malin - Last Filed: 04/09/17 21:00> - Medical Decision Making The patient was seen and examined. All diagnostics were reviewed. The labs, urinalysis, and computed tomography scan of the abdomen and pelvis do not show any acute abnormalities. She is in no distress on recheck. Is felt as though she is stable for discharge. She likely does have a back strain. She relates that she has history of back problems. (Sunil Malin) - Lab Data Lab Results 04/09/17 04/09/17 04/09/17 Range/Units 18:49 18:49 18:49 WBC 9.3 (3.8-10.6) k/uL RBC 4.56 (3.80-5.40) m/uL Hgb 15.1 (11.4-16.0) gm/dL Hct 43.8 (34.0-46.0) % MCV 96.1 (80.0-100.0) fL MCH 33.2 (25.0-35.0) pg MCHC 34.5 (31.0-37.0) g/dL RDW 12.7 (11.5-15.5) % Plt Count 207 (150-450) k/uL Neutrophils % 56 % Lymphocytes % 33 % Monocytes % 4 % Eosinophils % 6 % Basophils % 1 % Neutrophils # 5.2 (1.3-7.7) k/uL Lymphocytes # 3.1 (1.0-4.8) k/uL Monocytes # 0.4 (0-1.0) k/uL Eosinophils # 0.5 (0-0.7) k/uL Basophils # 0.1 (0-0.2) k/uL Sodium 140 (137-145) mmol/L Potassium 4.2 (3.5-5.1) mmol/L Chloride 104 (98-107) mmol/L Carbon Dioxide 23 (22-30) mmol/L Anion Gap 13 mmol/L BUN 7 (7-17) mg/dL Creatinine 0.52 (0.52-1.04) mg/dL Est GFR (MDRD) Af Amer >60 (>60 ml/min/1.73 sqM) Est GFR (MDRD) Non-Af >60 (>60 ml/min/1.73 sqM) Glucose 118 H (74-99) mg/dL Plasma Lactic Acid Mikael 1.3 (0.7-2.0) mmol/L Calcium 10.3 H (8.4-10.2) mg/dL Total Bilirubin 0.4 (0.2-1.3) mg/dL AST 28 (14-36) U/L ALT 27 (9-52) U/L Alkaline Phosphatase 49 (38-126) U/L Total Protein 7.5 (6.3-8.2) g/dL Albumin 4.5 (3.5-5.0) g/dL Amylase 83 (30-110) U/L Lipase 258 (23-300) U/L Urine Color Urine Appearance (Clear) Urine pH (5.0-8.0) Ur Specific [place] (1.001-1.035) Urine Protein (Negative) Urine Glucose (UA) (Negative) Urine Ketones (Negative) Urine Blood (Negative) Urine Nitrite (Negative) Urine Bilirubin (Negative) Urine Urobilinogen (<2.0) mg/dL Ur Leukocyte Esterase (Negative) 04/09/17 Range/Units 18:49 WBC (3.8-10.6) k/uL RBC (3.80-5.40) m/uL Hgb (11.4-16.0) gm/dL Hct (34.0-46.0) % MCV (80.0-100.0) fL MCH (25.0-35.0) pg MCHC (31.0-37.0) g/dL RDW (11.5-15.5) % Plt Count (150-450) k/uL Neutrophils % % Lymphocytes % % Monocytes % % Eosinophils % % Basophils % % Neutrophils # (1.3-7.7) k/uL Lymphocytes # (1.0-4.8) k/uL Monocytes # (0-1.0) k/uL Eosinophils # (0-0.7) k/uL Basophils # (0-0.2) k/uL Sodium (137-145) mmol/L Potassium (3.5-5.1) mmol/L Chloride (98-107) mmol/L Carbon Dioxide (22-30) mmol/L Anion Gap mmol/L BUN (7-17) mg/dL Creatinine (0.52-1.04) mg/dL Est GFR (MDRD) Af Amer (>60 ml/min/1.73 sqM) Est GFR (MDRD) Non-Af (>60 ml/min/1.73 sqM) Glucose (74-99) mg/dL Plasma Lactic Acid Mikael (0.7-2.0) mmol/L Calcium (8.4-10.2) mg/dL Total Bilirubin (0.2-1.3) mg/dL AST (14-36) U/L ALT (9-52) U/L Alkaline Phosphatase (38-126) U/L Total Protein (6.3-8.2) g/dL Albumin (3.5-5.0) g/dL Amylase (30-110) U/L Lipase (23-300) U/L Urine Color Colorless Urine Appearance Clear (Clear) Urine pH 6.5 (5.0-8.0) Ur Specific [place] 1.001 (1.001-1.035) Urine Protein Negative (Negative) Urine Glucose (UA) Negative (Negative) Urine Ketones Negative (Negative) Urine Blood Negative (Negative) Urine Nitrite Negative (Negative) Urine Bilirubin Negative (Negative) Urine Urobilinogen <2.0 (<2.0) mg/dL Ur Leukocyte Esterase Negative (Negative) Disposition Time of Disposition: 19:22 <Jl Rivas - Last Filed: 04/09/17 19:40> <Sunil Malin - Last Filed: 04/09/17 21:00> Clinical Impression: Right low back pain, Back strain, Hypertension Disposition: HOME SELF-CARE Condition: Good Instructions: Low Back Strain (ED), Hypertension (ED), Back Pain (ED) Additional Instructions: Please use medication as discussed. Please follow-up with urology/family doctor in the next 2 days of symptoms have not improved. Please return to emergency room if the symptoms increase or worsen or for any other concerns. Prescriptions: Ondansetron Odt [Zofran ODT] 4 mg PO Q8HR PRN #20 tab PRN Reason: Nausea Referrals: Malena Milner MD [Primary Care Provider] - 1-2 days
[2017-04-09 19:04] LABS: Basophils # (A) 0.1 k/uL (0-0.2); Basophils % (A) 1 %; Eosinophils # (A) 0.5 k/uL (0-0.7); Eosinophils % (A) 6 %; HCT 43.8 % (34.0-46.0); HGB 15.1 gm/dL (11.4-16.0); Lymphocytes # (A) 3.1 k/uL (1.0-4.8); Lymphocytes % (A) 33 %; MCH 33.2 pg (25.0-35.0); MCHC 34.5 g/dL (31.0-37.0); MCV 96.1 fL (80.0-100.0); Mean Platelet Volume 8.3; Monocytes # (A) 0.4 k/uL (0-1.0); Monocytes % (A) 4 %; Neutrophils # (A) 5.2 k/uL (1.3-7.7); Neutrophils % (A) 56 %; Platelet Count 207 k/uL (150-450); RBC 4.56 m/uL (3.80-5.40); RDW 12.7 % (11.5-15.5); WBC 9.3 k/uL (3.8-10.6)
[2017-04-09 19:10] LABS: ALT 27 U/L (9-52); AST 28 U/L (14-36); Albumin 4.5 g/dL (3.5-5.0); Alkaline Phosphatase 49 U/L (38-126); Amylase 83 U/L (30-110); Anion Gap 13 mmol/L; Blood Urea Nitrogen 7 mg/dL (7-17); Calcium 10.3 mg/dL (8.4-10.2); Carbon Dioxide 23 mmol/L (22-30); Chloride 104 mmol/L (98-107); Glucose 118 mg/dL (74-99); Lipase 258 U/L (23-300); Potassium 4.2 mmol/L (3.5-5.1); Sodium 140 mmol/L (137-145); Total Bilirubin 0.4 mg/dL (0.2-1.3); Total Protein 7.5 g/dL (6.3-8.2)
[2017-04-09 19:13] LABS: Appearance,Urine Clear (Clear); Bilirubin,Urine Negative (Negative); Blood,Urine Negative (Negative); Color,Urine Colorless; Glucose,Urine (UA) Negative (Negative); Ketones,Urine Negative (Negative); Leukocyte Esterase,Urine Negative (Negative); Nitrite,Urine Negative (Negative); PH, Urine 6.5 (5.0-8.0); Protein,Urine Negative (Negative); Specific Gravity,Urine 1.001 (1.001-1.035); Urobilinogen,Urine <2.0 mg/dL (<2.0)
--- NOTE | 2017-04-09 19:16 | XR ---
EXAMINATION TYPE: XR KUB DATE OF EXAM: 04/09/2017 COMPARISON: 12/07/2016 HISTORY: Right-sided abdominal pain and flank pain TECHNIQUE: 2 views FINDINGS: There is no sign of intestinal obstruction or pneumoperitoneum. Fecal pattern is normal. Th ere are clips from cholecystectomy. Lung bases are clear. There is no sign of a mass. There are no pa thologic calcifications over the kidneys. IMPRESSION: Nonacute abdomen. No change.
[2017-04-09] MEDS ORDERED: KETOROLAC 30 MG/ML 1 ML VIAL IVP STA (19:20)
--- NOTE | 2017-04-09 20:05 | CT ---
EXAMINATION TYPE: CT abdomen pelvis wo con DATE OF EXAM: 04/09/2017 COMPARISON: 11/06/2016 HISTORY: Right flank pain, history of stones. CT DLP: 455.10 mGycm Automated exposure control for dose reduction was used. TECHNIQUE: Helical acquisition of images was performed from the lung bases through the pelvis. FINDINGS: Lung bases are clear of infiltrate. There is no pleural effusion. The liver spleen pancreas appear no rmal. There are clips from cholecystectomy. Bile ducts are not dilated. There is no adrenal mass. Kidneys have normal size and contour. There is no hydronephrosis. Ureters a re not dilated. There is no retroperitoneal adenopathy. There is no ascites. There are surgical clips in the right lower quadrant probably from appendectomy. There is no ascites. I see no intestinal wal l thickening. There are no dilated loops. Bladder distends smoothly. There is apparent hysterectomy. There is no evidence of a pelvic mass. I see no bony destructive process. IMPRESSION: NEGATIVE CT SCAN OF THE ABDOMEN AND PELVIS. I DO NOT SEE A CAUSE FOR RIGHT FLANK PAIN.
[2017-04-09 21:12] VITALS: BP 156/90; PULSE 69; RESP 18; TEMP 98.1
== END 2017-04-09 21:11 | disposition home or self-care (01) ==
LOC: EC 17:28
DX: S39.012A Strain of muscle, fascia and tendon of lower back, initial encounter (principal); I10 Essential (primary) hypertension; R19.7 Diarrhea, unspecified; R11.0 Nausea; M19.90 Unspecified osteoarthritis, unspecified site; F17.200 Nicotine dependence, unspecified, uncomplicated; Z86.73 Personal history of transient ischemic attack (TIA), and cerebral infarction without residual deficits; Z87.442 Personal history of urinary calculi; Z90.49 Acquired absence of other specified parts of digestive tract; Z90.710 Acquired absence of both cervix and uterus; Z98.51 Tubal ligation status; Z79.1 Long term (current) use of non-steroidal anti-inflammatories (NSAID); Z79.899 Other long term (current) drug therapy; Z88.5 Allergy status to narcotic agent; Z91.018 Allergy to other foods; X58.XXXA Exposure to other specified factors, initial encounter
CPT/HCPCS: 36415; 80053; 82150; 83605; 83690; 85025; 81003; 74018; 74176; 99284; 96374; 96375 ×2; 96361; J1170; J2405; J1885

== ENCOUNTER → 2017-05-08 | Outpatient (CLI) | payer OTHER ==
--- NOTE | 2017-05-08 23:05 | MR ---
EXAMINATION TYPE: MR cervical spine wo con DATE OF EXAM: 05/08/2017 COMPARISON: 06/05/2015 HISTORY: 41-year-old female with cervicalgia. Headaches, neck pain and weakness for 2 years. Sonograp her notes: Patient Has Unremovable lip piercing TECHNIQUE: Multiplanar, multisequence images of the cervical spine were acquired. Findings: There is minimal 3 mm of right-sided cerebellar tonsillar herniation compatible with benign cerebella r tonsillar tube.. Otherwise, no craniocervical junction abnormality, predental space widening, or pr evertebral soft tissue swelling. Preserved alignment of the cervical spine. Relative similar variable [id number] disc desiccation throughout the cervical spine and small d isc bulges with scattered facet degenerative change as well. These disc bulges at C4-C5, C5-C6, and C6-C7 continue to cause mild narrowing of the spinal canal wit h a varying degrees of mild ventral cord abutment and minimal ventral cord flattening particularly at C4-C5. At C3-C4, there is left greater than right facet arthropathy without canal or foraminal stenosis. At C3-C4, facet degenerative change without canal or foraminal stenosis. C4-C5, facet arthropathy with mild narrowing of the spinal canal. No significant neuroforaminal steno sis. At C5-C6, mild facet arthropathy without significant neural foraminal stenosis. Mild narrowing of the spinal canal. At C6-C7, there is mild facet degenerative change and left paracentral disc protrusion mildly narrowi ng the spinal canal. No significant neuroforaminal stenosis. At C7-T1, no canal or foraminal stenosis. Normal course and signal intensity of the cervical cord. No prevertebral or paravertebral soft tissue abnormality. IMPRESSION: 1. Mild degenerative disc disease throughout the cervical spine characterized by mild to moderate dis c desiccation and small disc bulges particularly from C4 through C7 levels. 2. This causes variable mild narrowing of the spinal canal with abutment of the ventral cord at C4-C5 and C5-C6 and minimal ventral cord flattening at C4-C5. Changes have not significantly progressed fr om 2016. No cord compression. 3. Scattered mild facet arthropathy. No significant neuroforaminal stenosis.
== END | disposition home or self-care (01) ==
LOC: RADMRIMAIN 15:05
PROVIDERS: ATTEND Psychiatry & Neurology Pain Medicine
DX: M50.323 Other cervical disc degeneration at C6-C7 level (principal)
CPT/HCPCS: 72141

== ENCOUNTER 2017-05-16 20:07 | Emergency (ER) | payer OTHER ==
[2017-05-16 20:24] VITALS: RESP 18
[2017-05-16] MEDS ORDERED: MORPHINE SULFATE 4 MG/ML SYRINGE IVP STA ×2 (20:57→21:58)
[2017-05-16] MEDS ORDERED: KETOROLAC 30 MG/ML 1 ML VIAL IVP STA (20:57)
[2017-05-16] MEDS ORDERED: ONDANSETRON 4 MG/2 ML VIAL IVP STA (20:57)
[2017-05-16] MEDS ORDERED: ACETAMINOPHEN TAB 325 MG TAB PO STA (21:01)
[2017-05-16 21:12] LABS: Amorphous Sediment,Urine Rare /hpf; Appearance,Urine Cloudy (Clear); Bacteria,Urine Rare /hpf; Bilirubin,Urine Negative (Negative); Blood,Urine Negative (Negative); Color,Urine Yellow; Glucose,Urine (UA) Negative (Negative); Ketones,Urine Negative (Negative); Leukocyte Esterase,Urine Negative (Negative); Nitrite,Urine Negative (Negative); Protein,Urine Trace (Negative); RBC,Urine 2 /hpf (0-5); Specific Gravity,Urine 1.016 (1.001-1.035); Squamous Epithelial Cell,Urine <1 /hpf (0-4); WBC,Urine <1 /hpf (0-5)
[2017-05-16 21:16] LABS: Anion Gap 13 mmol/L; Basophils # (A) 0.1 k/uL (0-0.2); Basophils % (A) 1 %; Blood Urea Nitrogen 11 mg/dL (7-17); Calcium 9.9 mg/dL (8.4-10.2); Carbon Dioxide 27 mmol/L (22-30); Chloride 102 mmol/L (98-107); Eosinophils # (A) 0.4 k/uL (0-0.7); Eosinophils % (A) 4 %; Glucose 97 mg/dL (74-99); HCT 44.6 % (34.0-46.0); HGB 15.3 gm/dL (11.4-16.0); Lymphocytes # (A) 3.2 k/uL (1.0-4.8); Lymphocytes % (A) 30 %; MCH 33.1 pg (25.0-35.0); MCHC 34.4 g/dL (31.0-37.0); MCV 96.2 fL (80.0-100.0); Mean Platelet Volume 8.8; Monocytes # (A) 0.6 k/uL (0-1.0); Monocytes % (A) 6 %; Neutrophils # (A) 6.3 k/uL (1.3-7.7); Neutrophils % (A) 59 %; Platelet Count 190 k/uL (150-450); Potassium 3.9 mmol/L (3.5-5.1); RBC 4.63 m/uL (3.80-5.40); RDW 13.3 % (11.5-15.5); Sodium 142 mmol/L (137-145); WBC 10.7 k/uL (3.8-10.6)
--- NOTE | 2017-05-16 21:33 | CT ---
EXAMINATION TYPE: CT renal stones wo con DATE OF EXAM: 05/16/2017 COMPARISON: And 1518 HISTORY: Right flank pain. CT DLP: 495.6 mGycm Examination of the solid and hollow viscera is limited given the lack of contrast. FINDINGS: LUNG BASES: No evidence for nodule. No evidence for infiltrate. LIVER/GB: The gallbladder is surgically absent.. No space-occupying hepatic lesion. PANCREAS: No pancreatic mass identified. No inflammatory process seen. SPLEEN: No evidence for splenomegaly. No intrasplenic lesions seen. ADRENALS: No adrenal nodules identified. No evidence for thickening. KIDNEYS: No evidence for renal mass. No nephrolithiasis. No hydronephrosis. BOWEL: Previous appendectomy changes. No evidence of bowel obstruction. No inflammatory process. Lymph nodes: No evidence for adenopathy greater than 1 cm. Abdominal aorta: Atheromatous changes seen. No evidence for aneurysm. Genital organs: No significant abnormality. Other: No significant abnormality. IMPRESSION: NO SIGNIFICANT ABNORMALITY TO ACCOUNT FOR THE PATIENT'S SYMPTOMS.
--- NOTE | 2017-05-16 23:36 | US ---
EXAMINATION TYPE: US transvaginal DATE OF EXAM: 05/16/2017 COMPARISON: NONE CLINICAL HISTORY: Pain. Pain partial hystectomy. TECHNIQUE: Transvaginal (TV). EXAM MEASUREMENTS: Uterus: Surgically absent cm Endometrial Stripe: Surgically absent cm Right Ovary: 2.4 x 2.7 x 2.5 cm Left Ovary: 3.9 x 2.2 x 2.1 cm 3. Right Ovary: wnl 4. Left Ovary: Complex area seen measuring 1.2 x 1.1 x .8cm. Spectral, color and waveform doppler imaging shows good arterial and venous flow within the ovaries ; there is no evidence for ovarian torsion. 5. Bilateral Adnexa: wnl 6. Posterior cul-de-sac: wnl IMPRESSION: There is hysterectomy. Complex 8 mm left ovarian cyst could be hemorrhagic cyst. Otherwis e negative exam. No evidence of ovarian torsion. No free fluid.
[2017-05-17] MEDS ORDERED: ONDANSETRON 4 MG/2 ML VIAL IVP STA (00:13)
--- NOTE | 2017-05-17 00:15 | ED ---
Female Urogenital HPI - General Chief complaint: Urogenital Stated complaint: poss kidney stones Time Seen by Provider: 05/16/17 20:30 Source: patient Mode of arrival: ambulatory Limitations: no limitations - History of Present Illness Initial comments: 41-year-old female with past medical history of kidney stones present for evaluation of sudden onset right-sided flank pain. States the symptoms started 2 hours prior to arrival to the ED with associated worsening symptoms with urination and urinary hesitancy. Denies any dysuria or hematuria states that she has some nausea with her pain. Symptoms aren't similar to previous kidney stones. Denies any preceding trauma, vaginal bleeding/discharge, diarrhea/constipation. - Related Data Home Medications Medication Instructions Recorded Confirmed Butalb/APAP/Caff 50-325-40Mg 1 tab PO Q8H PRN 02/18/16 05/16/17 [Fioricet 50-325-40] Divalproex [Depakote] 250 mg PO BID 12/07/16 05/16/17 Cyclobenzaprine [Flexeril] 10 mg PO BID 04/09/17 05/16/17 Etodolac [Lodine] 400 mg PO BID 04/09/17 05/16/17 Previous Rx's Medication Instructions Recorded HYDROcodone/APAP 5-325MG [[place] 1 - 2 tab PO Q6HR PRN #14 tab 05/17/17 5-325] Ibuprofen [Motrin] 800 mg PO Q6HR #30 tab 05/17/17 Allergies Allergy/AdvReac Type Severity Reaction Status Date / Time codeine Allergy Rash/Hives Verified 05/16/17 20:43 onion Allergy Unknown Verified 05/16/17 20:43 Review of Systems ROS Statement: Those systems with pertinent positive or pertinent negative responses have been documented in the HPI. ROS Other: All systems not noted in ROS Statement are negative. Constitutional: Denies: fever, chills Eyes: Denies: eye pain, eye discharge, vision change ENT: Denies: ear pain, throat pain Respiratory: Denies: cough, dyspnea, wheezes, hemoptysis Cardiovascular: Denies: chest pain, palpitations, dyspnea on exertion Endocrine: Denies: fatigue, polydipsia Gastrointestinal: Reports: nausea. Denies: abdominal pain, vomiting, diarrhea, constipation Genitourinary: Reports: urgency, frequency. Denies: dysuria, hematuria, discharge Musculoskeletal: Denies: back pain, arthralgia, myalgia Skin: Denies: rash, lesions, change in color Neurological: Denies: headache, weakness, numbness Psychiatric: Denies: anxiety, depression Hematological/Lymphatic: Denies: easy bleeding, easy bruising Past Medical History Past Medical History: CVA/TIA, Osteoarthritis (OA) Additional Past Medical History / Comment(s): DDD. 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 Delgadillo's Esophagus. carpel tunnel B/L wrist, kidney stones History of Any Multi-Drug Resistant Organisms: None Reported Past Surgical History: Appendectomy, Cholecystectomy, Hysterectomy, Tubal Ligation Additional Past Surgical History / Comment(s): PAIN CLINIC PROCEDURES Past Anesthesia/Blood Transfusion Reactions: No Reported Reaction Past Psychological History: Anxiety Smoking Status: Current every day smoker Past Alcohol Use History: None Reported Past Drug Use History: None Reported - Past Family History Mother Family Medical History: Diabetes Mellitus, Hypertension Additional Family Medical History / Comment(s): lupus Father Family Medical History: Unable to Obtain Additional Family Medical History / Comment(s): aunt and uncle mother side with CAD s/p CABG General Exam Limitations: no limitations General appearance: alert, in distress (Mild to moderate) Head exam: Present: atraumatic, normocephalic, normal inspection Eye exam: Present: normal appearance, PERRL, EOMI. Absent: scleral icterus, conjunctival injection, periorbital swelling ENT exam: Present: normal exam, mucous membranes moist Neck exam: Present: normal inspection. Absent: tenderness, meningismus, lymphadenopathy Respiratory exam: Present: normal lung sounds bilaterally. Absent: respiratory distress, wheezes, rales, rhonchi, stridor Cardiovascular Exam: Present: normal rhythm, tachycardia, normal heart sounds. Absent: systolic murmur, diastolic murmur, rubs, gallop, clicks GI/Abdominal exam: Present: soft. Absent: distended, tenderness, guarding, rebound, rigid Rectal exam: Present: deferred Extremities exam: Present: normal inspection, full ROM, normal capillary refill. Absent: tenderness, pedal edema, joint swelling, calf tenderness Back exam: Present: normal inspection, full ROM, CVA tenderness (R). Absent: vertebral tenderness Neurological exam: Present: alert, oriented X3, CN II-XII intact. Absent: altered Psychiatric exam: Present: normal affect, normal mood Skin exam: Present: warm, dry, intact, normal color. Absent: rash Course Vital Signs 05/16/17 05/17/17 05/17/17 20:22 00:09 00:27 Temperature 100.2 F H 98.9 F 98.5 F Pulse Rate 111 H 84 82 Respiratory 18 18 18 Rate Blood Pressure 134/78 115/63 122/78 O2 Sat by Pulse 98 98 98 Oximetry Medical Decision Making - Medical Decision Making 41-year-old female with past medical history of kidney stones presenting for evaluation of sudden onset right flank pain. States this is similar to previous kidney stones. On physical examination she does have positive Jed sign on the right with some positive tenderness to the right flank. Remainder of physical exam is benign and her abdomen is soft and non- peritoneal signs of guarding, rigidity, rebound. Concern for kidney stone and will obtain labs, CT renal stone, and provide symptom control. Labs revealed no significant abnormalities and CT renal stone showed no significant abnormality to account for the patient's symptoms. She is reevaluated and continued to have pain and on this reevaluation she had right lower back pain and right lower pelvis pain. At this time concern for intrapelvic etiology and will obtain ultrasound. Ultrasound of pelvis showed a complex area seen measuring 1.2 x 1.1 x 8 cm with good arterial and venous flow within the ovaries and no evidence ovarian torsion. Likely a left ovarian cyst that could be hemorrhagic. The patient was reevaluated and had improvement in symptoms. She was informed of all results and through shared decision making it was determined that she was discharged with instructions to follow with her primary care physician but return to this facility if her symptoms worsen or persist. The patient acknowledged an understanding of all information provided and agreed with this plan of care. - Lab Data Result diagrams: 05/16/17 20:41 05/16/17 20:41 Lab Results 05/16/17 05/16/17 05/16/17 Range/Units 20:41 20:41 20:41 WBC 10.7 H (3.8-10.6) k/uL RBC 4.63 (3.80-5.40) m/uL Hgb 15.3 (11.4-16.0) gm/dL Hct 44.6 (34.0-46.0) % MCV 96.2 (80.0-100.0) fL MCH 33.1 (25.0-35.0) pg MCHC 34.4 (31.0-37.0) g/dL RDW 13.3 (11.5-15.5) % Plt Count 190 (150-450) k/uL Neutrophils % 59 % Lymphocytes % 30 % Monocytes % 6 % Eosinophils % 4 % Basophils % 1 % Neutrophils # 6.3 (1.3-7.7) k/uL Lymphocytes # 3.2 (1.0-4.8) k/uL Monocytes # 0.6 (0-1.0) k/uL Eosinophils # 0.4 (0-0.7) k/uL Basophils # 0.1 (0-0.2) k/uL Sodium 142 (137-145) mmol/L Potassium 3.9 (3.5-5.1) mmol/L Chloride 102 (98-107) mmol/L Carbon Dioxide 27 (22-30) mmol/L Anion Gap 13 mmol/L BUN 11 (7-17) mg/dL Creatinine 0.60 (0.52-1.04) mg/dL Est GFR (MDRD) Af Amer >60 (>60 ml/min/1.73 sqM) Est GFR (MDRD) Non-Af >60 (>60 ml/min/1.73 sqM) Glucose 97 (74-99) mg/dL Calcium 9.9 (8.4-10.2) mg/dL Urine Color Urine Appearance (Clear) Urine pH (5.0-8.0) Ur Specific [place] (1.001-1.035) Urine Protein (Negative) Urine Glucose (UA) (Negative) Urine Ketones (Negative) Urine Blood (Negative) Urine Nitrite (Negative) Urine Bilirubin (Negative) Urine Urobilinogen (<2.0) mg/dL Ur Leukocyte Esterase (Negative) Urine RBC (0-5) /hpf Urine WBC (0-5) /hpf Ur Squamous Epith Cells (0-4) /hpf Amorphous Sediment (None) /hpf Urine Bacteria (None) /hpf Urine HCG, Qual Not Detected (Not Detectd) 05/16/17 Range/Units 20:41 WBC (3.8-10.6) k/uL RBC (3.80-5.40) m/uL Hgb (11.4-16.0) gm/dL Hct (34.0-46.0) % MCV (80.0-100.0) fL MCH (25.0-35.0) pg MCHC (31.0-37.0) g/dL RDW (11.5-15.5) % Plt Count (150-450) k/uL Neutrophils % % Lymphocytes % % Monocytes % % Eosinophils % % Basophils % % Neutrophils # (1.3-7.7) k/uL Lymphocytes # (1.0-4.8) k/uL Monocytes # (0-1.0) k/uL Eosinophils # (0-0.7) k/uL Basophils # (0-0.2) k/uL Sodium (137-145) mmol/L Potassium (3.5-5.1) mmol/L Chloride (98-107) mmol/L Carbon Dioxide (22-30) mmol/L Anion Gap mmol/L BUN (7-17) mg/dL Creatinine (0.52-1.04) mg/dL Est GFR (MDRD) Af Amer (>60 ml/min/1.73 sqM) Est GFR (MDRD) Non-Af (>60 ml/min/1.73 sqM) Glucose (74-99) mg/dL Calcium (8.4-10.2) mg/dL Urine Color Yellow Urine Appearance Cloudy H (Clear) Urine pH 8.0 (5.0-8.0) Ur Specific [place] 1.016 (1.001-1.035) Urine Protein Trace H (Negative) Urine Glucose (UA) Negative (Negative) Urine Ketones Negative (Negative) Urine Blood Negative (Negative) Urine Nitrite Negative (Negative) Urine Bilirubin Negative (Negative) Urine Urobilinogen 2.0 (<2.0) mg/dL Ur Leukocyte Esterase Negative (Negative) Urine RBC 2 (0-5) /hpf Urine WBC <1 (0-5) /hpf Ur Squamous Epith Cells <1 (0-4) /hpf Amorphous Sediment Rare H (None) /hpf Urine Bacteria Rare H (None) /hpf Urine HCG, Qual (Not Detectd) Disposition Clinical Impression: Flank pain Disposition: HOME SELF-CARE Condition: Stable Instructions: Flank Pain (ED) Additional Instructions: Please use medication as discussed. Please follow up with family doctor if symptoms have not improved over the next two days. Please return to the emergency room if your symptoms increase or worsen or for any other concerns. Prescriptions: HYDROcodone/APAP 5-325MG [[place] 5-325] 1 - 2 tab PO Q6HR PRN #14 tab PRN Reason: Analgesia Ibuprofen [Motrin] 800 mg PO Q6HR #30 tab Referrals: Malena Milner MD [Primary Care Provider] - 1-2 days Time of Disposition: 00:15
[2017-05-17 00:27] VITALS: BP 122/78; PULSE 82; TEMP 98.5
== END 2017-05-17 00:27 | disposition home or self-care (01) ==
LOC: EC 20:07
DX: R10.2 Pelvic and perineal pain (principal); R00.0 Tachycardia, unspecified; M54.5 Low back pain; R39.11 Hesitancy of micturition; R11.0 Nausea; M19.90 Unspecified osteoarthritis, unspecified site; F17.200 Nicotine dependence, unspecified, uncomplicated; Z79.1 Long term (current) use of non-steroidal anti-inflammatories (NSAID); Z79.899 Other long term (current) drug therapy; Z88.5 Allergy status to narcotic agent; Z91.018 Allergy to other foods; Z86.69 Personal history of other diseases of the nervous system and sense organs; Z90.49 Acquired absence of other specified parts of digestive tract
CPT/HCPCS: 36415; 80048; 85025; 81001; 81025; 93975; 76830; 74150; 99284; 96374; 96375 ×2; 96376; J2270; J2405 ×2; J1885

== ENCOUNTER 2017-05-27 22:04 | Emergency (ER) | payer OTHER ==
[2017-05-27 22:12] VITALS: BP 129/75; PULSE 103; RESP 20; TEMP 98.3
--- NOTE | 2017-05-27 22:35 | ED ---
Extremity Problem HPI - General Chief complaint: Extremity Problem,Nontraumatic Stated complaint: Left Knee Pain Time Seen by Provider: 05/27/17 22:20 Source: patient, RN notes reviewed Mode of arrival: ambulatory Limitations: no limitations - History of Present Illness Initial comments: This a 41-year-old female presents emergency Department with a left knee pain. Patient is over the last 1 week she's had pain in the medial aspect. She states it's worse with walking ambulating. Patient states that she feels some clicking popping has no some swelling. Denies any calf pain no pain proximal to the right knee. She does not remember having injury but states that she initially felt that she may have twisted wrong. Denies any paresthesias. Denies any prior injuries or noted surgeries. - Related Data Home Medications Medication Instructions Recorded Confirmed Butalb/APAP/Caff 50-325-40Mg 2 tab PO BID 02/18/16 05/27/17 [Fioricet 50-325-40] Divalproex [Depakote] 250 mg PO BID 12/07/16 05/27/17 Cyclobenzaprine [Flexeril] 10 mg PO BID 04/09/17 05/27/17 Etodolac [Lodine] 400 mg PO BID 04/09/17 05/27/17 Previous Rx's Medication Instructions Recorded Hydrocodone/Acetaminophen [[place] 1 tab PO Q6HR PRN #15 tab 05/27/17 5-325] Allergies Allergy/AdvReac Type Severity Reaction Status Date / Time codeine Allergy Rash/Hives Verified 05/27/17 22:22 onion Allergy Unknown Verified 05/27/17 22:22 Review of Systems ROS Statement: Those systems with pertinent positive or pertinent negative responses have been documented in the HPI. ROS Other: All systems not noted in ROS Statement are negative. Past Medical History Past Medical History: CVA/TIA, Osteoarthritis (OA) Additional Past Medical History / Comment(s): DDD. 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 Delgadillo's Esophagus. carpel tunnel B/L wrist, kidney stones History of Any Multi-Drug Resistant Organisms: None Reported Past Surgical History: Appendectomy, Cholecystectomy, Hysterectomy, Tubal Ligation Additional Past Surgical History / Comment(s): PAIN CLINIC PROCEDURES Past Anesthesia/Blood Transfusion Reactions: No Reported Reaction Past Psychological History: Anxiety Smoking Status: Current every day smoker Past Alcohol Use History: None Reported Past Drug Use History: None Reported - Past Family History Mother Family Medical History: Diabetes Mellitus, Hypertension Additional Family Medical History / Comment(s): lupus Father Family Medical History: Unable to Obtain Additional Family Medical History / Comment(s): aunt and uncle mother side with CAD s/p CABG General Exam Limitations: no limitations General appearance: alert, in no apparent distress Head exam: Present: atraumatic, normocephalic, normal inspection Respiratory exam: Present: normal lung sounds bilaterally. Absent: respiratory distress, wheezes, rales, rhonchi, stridor Cardiovascular Exam: Present: regular rate, normal rhythm, normal heart sounds. Absent: systolic murmur, diastolic murmur, rubs, gallop, clicks Extremities exam: Present: other (Left knee there is tenderness the medial aspect, minimal swelling neurovascular intact patient has pain with valgus no pain with varus, negative anterior posterior drawer tests there is no tenderness on the medial aspect) Skin exam: Present: warm, dry, intact, normal color. Absent: rash Course Vital Signs 05/27/17 22:10 Temperature 98.3 F Pulse Rate 103 H Respiratory 20 Rate Blood Pressure 129/75 O2 Sat by Pulse 99 Oximetry Medical Decision Making - Medical Decision Making 41-year-old female presented from chief complaint of left knee pain. There is no obvious deformity x-rays reviewed no acute injury or fracture noted. Patient will be discharged advised felt orthopedics for MRI concern for meniscus injury. Disposition Clinical Impression: Left knee pain, Left knee sprain Disposition: HOME SELF-CARE Condition: Stable Instructions: Knee Pain (ED) Additional Instructions: Please return to the Emergency Department if symptoms worsen or any other concerns. Prescriptions: Hydrocodone/Acetaminophen [[place] 5-325] 1 tab PO Q6HR PRN #15 tab PRN Reason: Pain Referrals: Malena Milner MD [Primary Care Provider] - 1-2 days Shaheed Townsend MD [STAFF PHYSICIAN] - 1-2 days Time of Disposition: 22:55
--- NOTE | 2017-05-27 22:53 | XR ---
EXAMINATION TYPE: XR knee complete LT DATE OF EXAM: 05/27/2017 COMPARISON: NONE HISTORY: Knee pain TECHNIQUE: 3 views FINDINGS: I see no fracture nor dislocation. Joint spaces are normal. There is no sign of knee joint effusion. IMPRESSION: Normal left knee.
[2017-05-27] MEDS ORDERED: HYDROcodone/APAP 5-325MG 1 EACH TAB PO STA (23:01)
== END 2017-05-27 23:06 | disposition home or self-care (01) ==
LOC: EC 22:04
DX: S83.92XA Sprain of unspecified site of left knee, initial encounter (principal); M19.90 Unspecified osteoarthritis, unspecified site; G43.909 Migraine, unspecified, not intractable, without status migrainosus; F41.9 Anxiety disorder, unspecified; F17.200 Nicotine dependence, unspecified, uncomplicated; Z79.1 Long term (current) use of non-steroidal anti-inflammatories (NSAID); Z79.899 Other long term (current) drug therapy; Z88.5 Allergy status to narcotic agent; Z91.018 Allergy to other foods
CPT/HCPCS: 99283

== ENCOUNTER 2017-07-01 15:55 | Inpatient (IN) | payer OTHER ==
[2017-07-01] MEDS ORDERED: ONDANSETRON 4 MG/2 ML VIAL IVP STA (16:32)
[2017-07-01] MEDS: MORPHINE SULFATE 4MG/4ML SYRG IVP PRN ×2 (16:59→20:59)
[2017-07-01 17:02] LABS: Basophils % (A) 0 %; Eosinophils # (A) 0.4 k/uL (0-0.7); Eosinophils % (A) 4 %; HGB 15.1 gm/dL (11.4-16.0); Lymphocytes # (A) 2.2 k/uL (1.0-4.8); Lymphocytes % (A) 27 %; MCH 33.4 pg (25.0-35.0); MCHC 35.1 g/dL (31.0-37.0); MCV 95.2 fL (80.0-100.0); Mean Platelet Volume 9.3; Monocytes # (A) 0.4 k/uL (0-1.0); Monocytes % (A) 5 %; Neutrophils # (A) 5.2 k/uL (1.3-7.7); Neutrophils % (A) 63 %; Platelet Count 195 k/uL (150-450); RBC 4.52 m/uL (3.80-5.40); RDW 12.6 % (11.5-15.5); WBC 8.3 k/uL (3.8-10.6)
[2017-07-01 17:10] LABS: Partial Thromboplastin Time 24.1 sec (22.0-30.0); Prothrombin Time 10.1 sec (9.0-12.0)
[2017-07-01 17:15] LABS: Amphetamine Screen,Urine Not Detected (NotDetected); Barbiturate Screen,Urine Detected (NotDetected); Benzodiazepines Screen,Urine Not Detected (NotDetected); Cocaine Screen,Urine Not Detected (NotDetected); Methadone Screen, Urine Not Detected (NotDetected); Opiate Screen,Urine Not Detected (NotDetected); Phencyclidine Screen,Urine Not Detected (NotDetected); Tricyclic Antidepressant,Urine Not Detected (NotDetected); Urn Cannabinoid Scrn Not Detected (NotDetected)
[2017-07-01 17:16] LABS: Oxycodone Screen, Urine Not Detected (NotDetected)
[2017-07-01 17:18] LABS: ALT 30 U/L (9-52); AST 22 U/L (14-36); Albumin 4.1 g/dL (3.5-5.0); Alkaline Phosphatase 77 U/L (38-126); Anion Gap 13 mmol/L; Blood Urea Nitrogen 6 mg/dL (7-17); Calcium 9.6 mg/dL (8.4-10.2); Carbon Dioxide 23 mmol/L (22-30); Chloride 108 mmol/L (98-107); Glucose 92 mg/dL (74-99); Potassium 4.2 mmol/L (3.5-5.1); Sodium 144 mmol/L (137-145); Total Bilirubin 0.3 mg/dL (0.2-1.3); Total Protein 7.1 g/dL (6.3-8.2)
[2017-07-01 17:21] LABS: Creatine Kinase 99 U/L (30-135)
--- NOTE | 2017-07-01 17:26 | CT ---
EXAMINATION TYPE: CT brain wo con DATE OF EXAM: 07/01/2017 COMPARISON: 05/20/2016 INDICATION: Left side of body tingling, bee stinging feeling DLP: 957.2 mGycm, Automated exposure control for dose reduction was used. CONTRAST: None CT of the brain is performed utilizing 3 mm thick sections through the posterior fossa and 3 mm thick sections through the remaining calvarium. Study is performed within 24 hours of arrival to the hosp [facility]. No abnormal hyperdensity is present to suggest an acute intracranial hemorrhage. No mass lesion is evident. No acute infarcts are evident. Ventricles and sulci are appropriate for the patient age. There is an air-fluid level within the left maxillary sinus. Mucosal thickening is through ethmoid ai r cells. Left septal deviation is noted. Remaining paranasal sinuses and mastoid air cells are clear. IMPRESSIONS: 1. No acute intracranial process. Exam appears stable from 05/20/2016. 2. Interval development of left maxillary sinusitis. Mucosal thickening is also present within ethmoi d air cells on the left. Clinical correlation is recommended
[2017-07-01 17:34] LABS: Creatine Kinase MB <0.2 ng/mL (0.0-2.4); Troponin I <0.012 ng/mL (0.000-0.034)
--- NOTE | 2017-07-01 17:40 | XR ---
EXAMINATION TYPE: XR chest 2V DATE OF EXAM: 07/01/2017 COMPARISON: 12/10/2016 INDICATION: Altered mental status TECHNIQUE: Frontal and lateral views of the chest are obtained. FINDINGS: The heart size is normal. The pulmonary vasculature is normal. The lungs are clear. IMPRESSION: 1. No acute pulmonary process.
[2017-07-01] MEDS ORDERED: LORazepam 2 MG/ML INJ IV STA (17:43)
--- NOTE | 2017-07-01 17:43 | ED ---
General Adult HPI - General Chief complaint: Neuro Symptoms/Deficit Stated complaint: anxiety Time Seen by Provider: 07/01/17 16:15 Source: patient, family, RN notes reviewed, old records reviewed Mode of arrival: EMS Limitations: no limitations - History of Present Illness Initial comments: Chief complaint and history of present illness this is a 41-year-old female here for complaint of some tingling and be type stinging sensation on the left half of her body. Also headache. Patient does suffer from migraines. She also states that she's had 2 TIAs in the past. Patient is able to stand and walk and speak without difficulty. No gross focal or lateralizing findings seen at this time. - Related Data Home Medications Medication Instructions Recorded Confirmed Butalb/APAP/Caff 50-325-40Mg 2 tab PO BID 02/18/16 05/27/17 [Fioricet 50-325-40] Divalproex [Depakote] 250 mg PO BID 12/07/16 05/27/17 Cyclobenzaprine [Flexeril] 10 mg PO BID 04/09/17 05/27/17 Etodolac [Lodine] 400 mg PO BID 04/09/17 05/27/17 Previous Rx's Medication Instructions Recorded Hydrocodone/Acetaminophen [Lowman 1 tab PO Q6HR PRN #15 tab 05/27/17 5-325] Allergies Allergy/AdvReac Type Severity Reaction Status Date / Time codeine Allergy Rash/Hives Verified 05/27/17 22:22 onion Allergy Unknown Verified 05/27/17 22:22 Review of Systems ROS Statement: Those systems with pertinent positive or pertinent negative responses have been documented in the HPI. Review of systems. The patient complains of headache with a history of migraines. The patient has been receiving injections in her neck for the migraines. The patient's denying any change in visual acuity of there is mild photophobia. No shortness of breath no difficulty swallowing. Patient describes her sensation as sensation of bees stinging the left side of her body. She is able to move the body and body parts without difficulty. This been ongoing for approximately 1 hour. She reports 2 previous times she had was diagnosed as TIAs with similar symptoms. No complaints of nausea or vomiting no diarrhea problems. Denies fever. Patient does appear anxious. All systems are reviewed Past medical problems significant for 2 previous TIAs, osteoarthritis, degenerative disc disease chronic migraines. Patient reports she's been on pain medication 2 years ago and was taken off by the neurologist because she was 5 pills short on one count. She still follows up with a neurologist and gets shots for her chronic migraines. The patient's surgeries include appendectomy, cholecystectomy, partial hysterectomy, pain clinic procedures multiple shots for migraines. Family history noncontributory ALLERGIES codeine and onions. The patient smokes daily strongly encouraged to stop denies alcohol use. Denies drug use. ROS Other: All systems not noted in ROS Statement are negative. Past Medical History Past Medical History: CVA/TIA, Osteoarthritis (OA) Additional Past Medical History / Comment(s): DDD. 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 Delgadillo's Esophagus. carpel tunnel B/L wrist, kidney stones History of Any Multi-Drug Resistant Organisms: None Reported Past Surgical History: Appendectomy, Cholecystectomy, Hysterectomy, Tubal Ligation Additional Past Surgical History / Comment(s): PAIN CLINIC PROCEDURES Past Anesthesia/Blood Transfusion Reactions: No Reported Reaction Past Psychological History: Anxiety Smoking Status: Current every day smoker Past Alcohol Use History: None Reported Past Drug Use History: None Reported - Past Family History Mother Family Medical History: Diabetes Mellitus, Hypertension Additional Family Medical History / Comment(s): lupus Father Family Medical History: Unable to Obtain Additional Family Medical History / Comment(s): aunt and uncle mother side with CAD s/p CABG General Exam - General Exam Comments Initial Comments: General: The patient is awake and alert, patient complaining of a headache with stinging sensation to the left side of her body. No stiff neck or meningismus. Mild nausea but no vomiting no diarrhea. Vital signs temperature 97.8 pulse 94 respiratory rate 30 as the patient is anxious Eye: Pupils are equal, round and reactive to light, extra-ocular movements are intact ; there is normal conjunctiva bilaterally. No signs of icterus. Ears, nose, mouth and throat: There are moist mucous membranes and no oral lesions. Neck: The neck is supple, chronic neck discomfort for which she received shots to control her migraines. Cardiovascular: There is a regular rate and rhythm. No murmur, rub or gallop is appreciated. Reproducible chest discomfort just below the left breast. Palpation increases discomfort. Respiratory: Lungs are clear to auscultation, respirations are non-labored, breath sounds are equal. No wheezes, stridor, rales, or rhonchi. Gastrointestinal: Soft, non-distended, non-tender abdomen without masses or organomegaly noted. There is no rebound or guarding present. No CVA tenderness. Bowel sounds are unremarkable. Back: There is no tenderness to palpation in the midline. There is no obvious deformity. No rashes noted. Musculoskeletal: Normal ROM, no tenderness, There is no pedal edema. There is no calf tenderness or swelling. Sensation intact. Pulses equal bilaterally 2+. Neurological: CN II-XII intact, There are no obvious motor or sensory deficits. Coordination appears grossly intact. Speech is normal. No focal or lateralizing findings Skin: Skin is warm and dry and no rashes or lesions are noted. No rashes noted. Psychiatric: Cooperative, past history of anxiety Limitations: no limitations Course Vital Signs 07/01/17 07/01/17 07/01/17 15:57 17:32 18:00 Temperature 97.8 F Pulse Rate 94 69 93 Respiratory 30 H 18 18 Rate Blood Pressure 166/94 167/98 172/102 O2 Sat by Pulse 96 99 98 Oximetry EKG Findings - EKG Comments: EKG Findings:: EKG was done and reviewed at 1705 showing heart rate of 78 MI interval is 132 QRS 76 QTc 388 QTc 442. No acute ST elevation no ectopy no ischemic changes. Dr. Pina. A second EKG was done because the patient complained of pain. It 2 showed normal sinus rhythm no acute ST elevation no ectopy. Rate was 64. Was 122/70 QTc 414 QTc 427. Similar to the first. Dr. Pina Medical Decision Making - Medical Decision Making Sunil decision-making; is a 41-year-old female here with her significant other. is complaining of tingling be bite-type sensation to the left half of her body from her face to her feet. She is able to ambulate. Also complaining of discomfort just below her left breast which is reproducible by palpation. Denies any injuries. Patient reports she is anxious feels that she might also be having an anxiety attack she has a past history on chart of 2 previous TIAs. Symptoms were similar to what she is complaining of today. Stat CAT scan was done reviewed by radiologist his final impression is no acute intracranial processes. Exam appear stable from laboratory 2016. Also there is no interval development of left maxillary sinusitis. Mucosal thickening is also present within the ethmoid air cells on the left. Clinical correlation is recommended. As read by Dr. Sorto Patient started complaining again of discomfort below her left breast. Again reproducible by of breath or palpation of the area. Again reexamined no evidence of any rash. Mild pressure over the area helps decrease discomfort pushing hard increases the pain. Repeat EKG was done which showed normal sinus rhythm without any acute changes. Similar to the first. Chest x-ray was done and reviewed and the findings per the radiologist his heart size is normal. The pulmonary vasculature is normal. The lungs are clear. Impression no acute pulmonary process. As read by Dr. Sorto The patient is admittedly anxious. No new deficits. Patient be given Ativan. She was given 4 mg of morphine with mild relief. Patient complains of increasing headache. She was given Reglan and Toradol. For short while blood pressure increased. She was given Catapres with good effect Patient vomited once, headache subsided. Patient be admitted the hospital for evaluation by neurology. We discussed TIA versus oral with migraine. - Lab Data Result diagrams: 07/01/17 16:45 07/01/17 16:45 Lab Results 07/01/17 07/01/17 07/01/17 Range/Units 16:45 16:45 16:45 WBC 8.3 (3.8-10.6) k/uL RBC 4.52 (3.80-5.40) m/uL Hgb 15.1 (11.4-16.0) gm/dL Hct 43.0 (34.0-46.0) % MCV 95.2 (80.0-100.0) fL MCH 33.4 (25.0-35.0) pg MCHC 35.1 (31.0-37.0) g/dL RDW 12.6 (11.5-15.5) % Plt Count 195 (150-450) k/uL Neutrophils % 63 % Lymphocytes % 27 % Monocytes % 5 % Eosinophils % 4 % Basophils % 0 % Neutrophils # 5.2 (1.3-7.7) k/uL Lymphocytes # 2.2 (1.0-4.8) k/uL Monocytes # 0.4 (0-1.0) k/uL Eosinophils # 0.4 (0-0.7) k/uL Basophils # 0.0 (0-0.2) k/uL PT (9.0-12.0) sec INR (<1.2) APTT (22.0-30.0) sec D-Dimer (<0.60) mg/L FEU Sodium 144 (137-145) mmol/L Potassium 4.2 (3.5-5.1) mmol/L Chloride 108 H (98-107) mmol/L Carbon Dioxide 23 (22-30) mmol/L Anion Gap 13 mmol/L BUN 6 L (7-17) mg/dL Creatinine 0.50 L (0.52-1.04) mg/dL Est GFR (CKD-EPI)AfAm >90 (>60 ml/min/1.73 sqM) Est GFR (CKD-EPI)NonAf >90 (>60 ml/min/1.73 sqM) Glucose 92 (74-99) mg/dL Calcium 9.6 (8.4-10.2) mg/dL Total Bilirubin 0.3 (0.2-1.3) mg/dL AST 22 (14-36) U/L ALT 30 (9-52) U/L Alkaline Phosphatase 77 (38-126) U/L Total Creatine Kinase 99 (30-135) U/L CK-MB (CK-2) <0.2 (0.0-2.4) ng/mL CK-MB (CK-2) Rel Index Troponin I <0.012 (0.000-0.034) ng/mL Total Protein 7.1 (6.3-8.2) g/dL Albumin 4.1 (3.5-5.0) g/dL Urine Opiates Screen (NotDetected) Ur Oxycodone Screen (NotDetected) Urine Methadone Screen (NotDetected) Ur Propoxyphene Screen (NotDetected) Ur Barbiturates Screen (NotDetected) U Tricyclic Antidepress (NotDetected) Ur Phencyclidine Scrn (NotDetected) Ur Amphetamines Screen (NotDetected) U Methamphetamines Scrn (NotDetected) U Benzodiazepines Scrn (NotDetected) Urine Cocaine Screen (NotDetected) U Marijuana (THC) Screen (NotDetected) 07/01/17 07/01/17 07/01/17 Range/Units 16:45 16:45 16:45 WBC (3.8-10.6) k/uL RBC (3.80-5.40) m/uL Hgb (11.4-16.0) gm/dL Hct (34.0-46.0) % MCV (80.0-100.0) fL MCH (25.0-35.0) pg MCHC (31.0-37.0) g/dL RDW (11.5-15.5) % Plt Count (150-450) k/uL Neutrophils % % Lymphocytes % % Monocytes % % Eosinophils % % Basophils % % Neutrophils # (1.3-7.7) k/uL Lymphocytes # (1.0-4.8) k/uL Monocytes # (0-1.0) k/uL Eosinophils # (0-0.7) k/uL Basophils # (0-0.2) k/uL PT 10.1 (9.0-12.0) sec INR 1.0 (<1.2) APTT 24.1 (22.0-30.0) sec D-Dimer 0.32 (<0.60) mg/L FEU Sodium (137-145) mmol/L Potassium (3.5-5.1) mmol/L Chloride (98-107) mmol/L Carbon Dioxide (22-30) mmol/L Anion Gap mmol/L BUN (7-17) mg/dL Creatinine (0.52-1.04) mg/dL Est GFR (CKD-EPI)AfAm (>60 ml/min/1.73 sqM) Est GFR (CKD-EPI)NonAf (>60 ml/min/1.73 sqM) Glucose (74-99) mg/dL Calcium (8.4-10.2) mg/dL Total Bilirubin (0.2-1.3) mg/dL AST (14-36) U/L ALT (9-52) U/L Alkaline Phosphatase (38-126) U/L Total Creatine Kinase (30-135) U/L CK-MB (CK-2) (0.0-2.4) ng/mL CK-MB (CK-2) Rel Index Troponin I (0.000-0.034) ng/mL Total Protein (6.3-8.2) g/dL Albumin (3.5-5.0) g/dL Urine Opiates Screen Not Detected (NotDetected) Ur Oxycodone Screen Not Detected (NotDetected) Urine Methadone Screen Not Detected (NotDetected) Ur Propoxyphene Screen Not Detected (NotDetected) Ur Barbiturates Screen Detected H (NotDetected) U Tricyclic Antidepress Not Detected (NotDetected) Ur Phencyclidine Scrn Not Detected (NotDetected) Ur Amphetamines Screen Not Detected (NotDetected) U Methamphetamines Scrn Not Detected (NotDetected) U Benzodiazepines Scrn Not Detected (NotDetected) Urine Cocaine Screen Not Detected (NotDetected) U Marijuana (THC) Screen Not Detected (NotDetected) Disposition Clinical Impression: Transient cerebral ischemia, Migraine with aura Disposition: ADMITTED IP TO THIS [facility] Condition: Fair Referrals: Malena Milner MD [Primary Care Provider] - 1-2 days
[2017-07-01] MEDS ORDERED: cloNIDine HCL 0.1 MG TAB PO STA (18:14)
[2017-07-01] MEDS ORDERED: METOCLOPRAMIDE 5 MG/ML 2 ML VIAL IVP STA (18:36)
[2017-07-01] MEDS ORDERED: KETOROLAC 30 MG/ML 1 ML VIAL IVP STA (18:53)
[2017-07-01] MEDS ORDERED: MORPHINE SULFATE 4MG/4ML SYRG IV PRN (19:01)
[2017-07-01] MEDS ORDERED: ACETAMINOPHEN TAB 325 MG TAB PO PRN (19:01)
[2017-07-01] MEDS ORDERED: NALOXONE 0.4 MG/ML 1 ML VIAL IV PRN (19:01)
[2017-07-01] MEDS ORDERED: HYDROcodone/APAP 5-325MG 1 EACH TAB PO PRN (19:06)
[2017-07-01] MEDS: SODIUM CHLORIDE 0.9% 1,000 ML IV SCH (19:55)
[2017-07-01 20:06] VITALS: BMI 26.0
[2017-07-01] MEDS: ETODOLAC 400 MG TAB PO SCH (20:59)
[2017-07-01] MEDS: FAMOTIDINE 20 MG TAB PO SCH (20:59)
[2017-07-01] MEDS: CYCLOBENZAPRINE 10 MG TAB PO SCH (21:00)
[2017-07-01] MEDS: DIVALPROEX 250 MG TABLET.DR PO SCH (21:00)
[2017-07-01] MEDS: METOCLOPRAMIDE 5 MG/ML 2 ML VIAL IVP PRN (23:15)
[2017-07-01] MEDS: BUTALB/APAP/CAFF 50-325-40MG TAB PO PRN (23:16)
[2017-07-02] MEDS: MORPHINE SULFATE 4MG/4ML SYRG IVP PRN ×3 (01:34→09:44)
[2017-07-02] MEDS: SODIUM CHLORIDE 0.9% 1,000 ML IV SCH (05:41)
[2017-07-02] MEDS: METOCLOPRAMIDE 5 MG/ML 2 ML VIAL IVP PRN (05:42)
[2017-07-02] MEDS ORDERED: NICOTINE 21MG/24HR PATCH TRANSDERM SCH (09:00)
[2017-07-02] MEDS: DIVALPROEX 250 MG TABLET.DR PO SCH (09:45)
[2017-07-02] MEDS: ETODOLAC 400 MG TAB PO SCH (09:45)
[2017-07-02] MEDS: CYCLOBENZAPRINE 10 MG TAB PO SCH (09:45)
[2017-07-02] MEDS: FAMOTIDINE 20 MG TAB PO SCH (09:46)
[2017-07-02] MEDS ORDERED: ESCITALOPRAM 10 MG TAB PO SCH (12:00)
[2017-07-02] MEDS ORDERED: MAGNESIUM SULFATE-D5W PMX 1 GM in DEXTROSE/WATER 1 100ML.BAG IVPB ONE (12:30)
[2017-07-02] MEDS: INSULIN ASPART 100 UNIT/ML 1 ML 10 ML VIAL SQ SCH ×2 (12:32→17:41)
--- NOTE | 2017-07-02 14:13 | P.HPIM ---
History of Present Illness Patient is a 41-year-old female came in with complains of tingling and numbness in the left forearm and leg patient does have history of migraine patient started having tingling and numbness before her headache. Patient is complaining of migraine and now. Patient does have weakness in the left arm gait is okay left leg restaurant is okay left thumb appears to be weak but has normal reflexes symmetric in both hands. Patient was also complaining of speech abnormality. Speech is definitely abnormal when I evaluated no significant facial droop when asked to raise both the hands patient left hand does drop. Patient denied any fever chills headache seizure-like activity. Patient follows up with neurology as an outpatient for her migraine attacks. Patient had a CAT scan of the head which did not show any significant abnormality carotid Doppler will be obtained patient was started on aspirin and a statin. I will leave the decision of MRI to neurology. She also complaining of headache in the posterior cervical area as well as bilateral frontal areas patient does have degenerative neck disease. Review of Systems PHYSICAL EXAMINATION: GENERAL: The patient is alert and oriented x3, not in any acute distress. Well developed, well nourished. HEENT: Pupils are round and equally reacting to light. EOMI. No scleral icterus. No conjunctival pallor. Normocephalic, atraumatic. No pharyngeal erythema. No thyromegaly. CARDIOVASCULAR: S1 and S2 present. No murmurs, rubs, or gallops. PULMONARY: Chest is clear to auscultation, no wheezing or crackles. ABDOMEN: Soft, nontender, nondistended, normoactive bowel sounds. No palpable organomegaly. MUSCULOSKELETAL: No joint swelling or deformity. EXTREMITIES: No cyanosis, clubbing, or pedal edema. NEUROLOGICAL: As mentioned in HPI SKIN: No rashes. Past Medical History Past Medical History: CVA/TIA, Osteoarthritis (OA) Additional Past Medical History / Comment(s): DDD. 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 Delgadillo's Esophagus. carpel tunnel B/L wrist, kidney stones History of Any Multi-Drug Resistant Organisms: None Reported Past Surgical History: Appendectomy, Cholecystectomy, Hysterectomy, Tubal Ligation Additional Past Surgical History / Comment(s): PAIN CLINIC PROCEDURES Past Anesthesia/Blood Transfusion Reactions: No Reported Reaction Past Psychological History: Anxiety Smoking Status: Current every day smoker Past Alcohol Use History: None Reported Additional Past Alcohol Use History / Comment(s): STARTED SMOKING AGE 18 (1993) SMOKES 1/2 PPD Past Drug Use History: None Reported - Past Family History Mother Family Medical History: Diabetes Mellitus, Hypertension Additional Family Medical History / Comment(s): lupus Father Family Medical History: Unable to Obtain Additional Family Medical History / Comment(s): aunt and uncle mother side with CAD s/p CABG Medications and Allergies Home Medications Medication Instructions Recorded Confirmed Type Butalb/APAP/Caff 50-325-40Mg 2 tab PO BID 02/18/16 07/02/17 History [Fioricet 50-325-40] Divalproex [Depakote] 250 mg PO BID 12/07/16 07/02/17 History Cyclobenzaprine [Flexeril] 10 mg PO BID 04/09/17 07/02/17 History Ergocalciferol [Vitamin D2] 50,000 unit PO TH 07/02/17 07/02/17 History Escitalopram [Lexapro] 10 mg PO DAILY 07/02/17 07/02/17 History Allergies Allergy/AdvReac Type Severity Reaction Status Date / Time codeine Allergy Rash/Hives Verified 07/02/17 08:10 onion Allergy Unknown Verified 07/02/17 08:10 Physical Exam Vitals: Vital Signs Temp Pulse Pulse Resp BP BP Pulse Ox 07/02/17 09:35 96.8 F L 74 16 109/56 97 07/02/17 04:00 68 16 118/58 99 07/02/17 00:00 97.8 F 68 16 112/70 98 07/01/17 20:00 96.8 F L 68 16 122/56 100 07/01/17 19:33 96.8 F L 77 16 120/60 97 07/01/17 19:02 89 18 118/82 97 07/01/17 18:00 93 18 172/102 98 07/01/17 17:32 69 18 167/98 99 07/01/17 15:57 97.8 F 94 30 H 166/94 96 Intake and Output 07/01/17 07/02/17 07/02/17 22:59 06:59 14:59 Intake Total 730 Balance 730 Intake: Amount of Fluid Infused ( 250 ml) Oral 480 Other: Voiding Method Toilet Toilet # Voids 1 2 Weight 71 kg 71 kg PHYSICAL EXAMINATION: GENERAL: The patient is alert and oriented x3, not in any acute distress. Well developed, well nourished. HEENT: Pupils are round and equally reacting to light. EOMI. No scleral icterus. No conjunctival pallor. Normocephalic, atraumatic. No pharyngeal erythema. No thyromegaly. CARDIOVASCULAR: S1 and S2 present. No murmurs, rubs, or gallops. PULMONARY: Chest is clear to auscultation, no wheezing or crackles. ABDOMEN: Soft, nontender, nondistended, normoactive bowel sounds. No palpable organomegaly. MUSCULOSKELETAL: No joint swelling or deformity. EXTREMITIES: No cyanosis, clubbing, or pedal edema. NEUROLOGICAL: As mentioned in HPI SKIN: No rashes. Results CBC & Chem 7: 07/01/17 16:45 07/01/17 16:45 Labs: Abnormal Lab Results - Last 24 Hours (Table) 07/01/17 07/01/17 Range/Units 16:45 16:45 Chloride 108 H (98-107) mmol/L BUN 6 L (7-17) mg/dL Creatinine 0.50 L (0.52-1.04) mg/dL Ur Barbiturates Screen Detected H (NotDetected) Thrombosis Risk Factor Assmnt - Choose All That Apply Other Risk Factors: No Assessment and Plan Plan: Possibility of stroke: Patient will be evaluated for stroke with the echocardiogram carotid Doppler. Her reflexes although are essentially within normal limits bilateral upper limbs. Neurology will evaluate the patient. -History of migraine: Morphine and will be discussed in your patient will be continued on Fioricet. Opiates are not recommended for migraine -Osteoarthritis of the cervical spine -Possible cervical cephalalgia -Nicotine use: Counseling was provided
--- NOTE | 2017-07-02 14:24 | US ---
EXAMINATION TYPE: US carotid duplex BILAT DATE OF EXAM: 07/02/2017 COMPARISON: US 2017 CLINICAL HISTORY: TIA. TIA EXAM MEASUREMENTS: RIGHT: Peak Systolic Velocity (PSV) cm/sec ----- Right CCA: 67.8 ----- Right ICA: 85.6 ----- Right ECA: 136.8 ICA/CCA ratio: 1.3 RIGHT: End Diastole cm/sec ----- Right CCA: 22.9 ----- Right ICA: 40.8 ----- Right ECA: 37.9 LEFT: Peak Systolic Velocity (PSV) cm/sec ----- Left CCA: 93.0 ----- Left ICA: 86.8 ----- Left ECA: 80.1 ICA/CCA ratio: 0.9 LEFT: End Diastole cm/sec ----- Left CCA: 31.4 ----- Left ICA: 41.8 ----- Left ECA: 21.7 VERTEBRALS (direction of flow): Right Vertebral: Antegrade Left Vertebral: Antegrade Rhythm: Normal Bilateral intimal thickening, minimal plaque bilateral bulb, elevated velocity: right mid ECA, no sig nificant stenosis. IMPRESSION: Bilateral intimal thickening and minimal plaque bilaterally with no significant hemodyna rahel stenosis. Criteria for Assigning % of Stenosis / Diameter reduction (Estimation based on the indirect measurements of the internal carotid artery velocities (ICA PSV). 1. Normal (no stenosis)=ICA PSV < 125 cm/s: ratio < 2.0: ICA EDV<40 cm/s. 2. Less than 50% stenosis=ICA PSV < 125 cm/s: ratio < 2.0: ICA EDV<40 cm/s. 3. 50 to 69% stenosis=ICA PSV of 125 to 230 cm/s: ration 2.0 ? 4.0: ICA EDV 40-100 cm/s. 4. Greater than 70% stenosis to near occlusion= ICA PSV > 230 cm/s: ratio > 4.0: ICA EDV > 100 cm/s. 5. Near occlusion= ICA PSV velocities may be low or undetectable: variable ratio and ICA EDV. 6. Total occlusion=unable to detect flow.
[2017-07-02] MEDS ORDERED: METOCLOPRAMIDE 5 MG/ML 2 ML VIAL IVP SCH (16:00)
[2017-07-02 16:54] VITALS: BP 125/80; PULSE 73; RESP 16; TEMP 97
[2017-07-02 17:10] LABS: Glucose,Whole Blood 98 mg/dL (75-99)
[2017-07-02] MEDS ORDERED: HYDROcodone/APAP 7.5-325MG 1 EACH TAB PO PRN (17:59)
[2017-07-02] MEDS: BUTALB/APAP/CAFF 50-325-40MG TAB PO PRN (18:35)
--- NOTE | 2017-07-02 18:51 | ECHOF ---
Referral Reason:stroke MEASUREMENTS -------- HEIGHT: 165.1 cm WEIGHT: 70.8 kg BP: 109/56 IVSd: 0.8 cm (0.6 - 1.1) LVIDd: 4.3 cm (3.9 - 5.3) LVPWd: 0.9 cm (0.6 - 1.1) IVSs: 1.2 cm LVIDs: 3.0 cm LVPWs: 1.2 cm RVIDd: 2.0 cm (< 3.3) LAESV Index (A-L): 19.56 ml/m Ao Diam: 2.6 cm (2.0 - 3.7) LA Diam: 2.9 cm (2.7 - 3.8) AV Cusp: 1.6 cm (1.5 - 2.6) EPSS: 0.4 cm MV E Danile: 0.96 m/s MV DecT: 209 ms MV A Daniel: 0.93 m/s MV E/A Ratio: 1.04 RAP: 5.00 mmHg RVSP: 26.28 mmHg MV EF SLOPE: 89.85 mm/s (70 - 150) MV EXCURSION: 1.44 cm (> 18.000) FINDINGS -------- Sinus rhythm. This was a technically adequate study. The left ventricular size is normal. Left ventricular wall thickness is normal. Overall left vent ricular systolic function is normal with, an EF between 55 - 60 %. The right ventricle is normal in size and function. Normal LA size by volume 22+/-6 ml/m2. The right atrium is normal in size. The aortic valve is trileaflet, and appears structurally normal. No aortic stenosis or regurgitation. The mitral valve leaflets are mildly thickened. Mild mitral regurgitation is present. Mild tricuspid regurgitation present. Right ventricular systolic pressure is normal at < 35 mmHg. There is no evidence of pulmonary hypertension. Trace/mild (physiologic) pulmonic regurgitation. The aortic root size is normal. Normal inferior vena cava with normal inspiratory collapse consistent with estimated right atrial pre ssure of 5 mmHg. There is no pericardial effusion. CONCLUSIONS -------- 1. Sinus rhythm. 2. This was a technically adequate study. 3. The left ventricular size is normal. 4. Left ventricular wall thickness is normal. 5. Overall left ventricular systolic function is normal with, an EF between 55 - 60 %. 6. Normal LA size by volume 22+/-6 ml/m2. 7. The aortic valve is trileaflet, and appears structurally normal. No aortic stenosis or regurgitati on. 8. The mitral valve leaflets are mildly thickened. 9. Mild mitral regurgitation is present. 10. Mild tricuspid regurgitation present. 11. Right ventricular systolic pressure is normal at < 35 mmHg. 12. There is no evidence of pulmonary hypertension. 13. Trace/mild (physiologic) pulmonic regurgitation. 14. The aortic root size is normal. 15. There is no pericardial effusion. PROPERTY DISPOSAL OFFICER: Ari Senior RDCS
--- NOTE | 2017-07-02 19:36 | P.DS ---
Providers Date of admission: 07/02/17 16:30 Attending physician: Hood Carranza MD Consults: 07/01/17 19:01 Consult Physician Stat Consulting Provider: Talon Laura Consult Reason/Comments: TIA, migraine with aura Do you want consulting provider notified?: Yes Primary care physician: Malena Milner [facility] Course: Patient was evaluated by neurology patient underwent workup for TIA carotid Doppler and echocardiogram are essentially within normal limits and the patient is cleared for discharge from neurology perspective and patient will follow with neurology as an outpatient Patient Condition at Discharge: Fair Plan - Discharge Summary Discharge Rx Participant: No New Discharge Prescriptions: No Action Butalb/APAP/Caff 50-325-40Mg [Fioricet 50-325-40] 2 tab PO BID Divalproex [Depakote] 250 mg PO BID Cyclobenzaprine [Flexeril] 10 mg PO BID Escitalopram [Lexapro] 10 mg PO DAILY Ergocalciferol [Vitamin D2] 50,000 unit PO TH Discharge Medication List Butalb/APAP/Caff 50-325-40Mg [Fioricet 50-325-40] 2 tab PO BID 02/18/16 [History ] Divalproex [Depakote] 250 mg PO BID 12/07/16 [History] Cyclobenzaprine [Flexeril] 10 mg PO BID 04/09/17 [History] Ergocalciferol [Vitamin D2] 50,000 unit PO TH 07/02/17 [History] Escitalopram [Lexapro] 10 mg PO DAILY 07/02/17 [History] Follow up Appointment(s)/Referral(s): Malena Milner MD [Primary Care Provider] - 3 Days Patient Instructions/Handouts: Transient Ischemic Attack (DC), Migraine Headache (GEN) Discharge Disposition: HOME SELF-CARE
[2017-07-02] MEDS ORDERED: ATORVASTATIN 40 MG TAB PO SCH (21:00)
[2017-07-02 21:15] LABS: Hemoglobin A1C 4.9 % (4.0-6.0)
--- NOTE | 2017-07-03 08:39 | CONS ---
CONSULTATION DATE OF SERVICE: 07/02/2017 CHIEF COMPLAINT: Headache. HISTORY OF PRESENT ILLNESS: The patient is a pleasant 41-year-old female, who is being evaluated today on 07/02/2017 by the neurology service per the request of Dr. Carranza for an intractable headache. The patient was brought into [facility] Emergency Room mainly with the complaints of numbness and tingling involving her left upper and lower extremity. She also reported having some weakness on the left side but that had resolved. She also complained of a headache which she described as a pressure and throbbing pain mostly in the posterior head region. The headache started 2 days ago and had been getting quite severe. 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 A CT scan of the brain was done, which showed no intracranial abnormalities. There was evidence of left maxillary sinusitis. Her carotid Doppler showed no hemodynamically significant stenosis. Her CBC, comprehensive metabolic profile and cardiac enzymes were normal. Her urine drug screen was positive for barbiturates. She does take Fioricet as needed at home. The patient was admitted for further workup and management. She was initially started on IV morphine as needed, which was discontinued early this morning. I did start her on [place] 7.5 mg. and this has significantly improved her headache. At the time of my evaluation, she rates her headache at 2/10 in intensity. She denies any numbness or weakness. She has been ambulating with no difficulties. PAST MEDICAL HISTORY: Migraine headaches, occipital neuritis, degenerative disc disease, Delgadillo's esophagitis, carpal tunnel syndrome, nephrolithiasis, history of appendectomy, cholecystectomy, hysterectomy, tubal ligation, anxiety disorder. SOCIAL HISTORY: The patient is a current every day smoker. She denies any alcohol or drug use. FAMILY HISTORY: Positive for diabetes and hypertension. HOME MEDICATIONS: Reviewed in the chart. ALLERGIES: CODEINE, BENADRYL, SOLU-MEDROL, ONION. REVIEW OF SYSTEM: As mentioned above and otherwise negative. MMODL / IJN: [id number] /
--- NOTE | 2017-07-03 08:43 | CONS ---
CONSULTATION CONTINUATION: DATE OF SERVICE: 07/02/2017 REVIEW OF SYSTEMS: As mentioned above and otherwise negative. PHYSICAL EXAM: Vital signs show a temperature of 97, pulse 73, respirations 16, blood pressure 125/80. GENERAL APPEARANCE: The patient is a well-developed female, who appears to be in no acute distress. HEENT: Normocephalic, atraumatic. No facial asymmetry is seen. Extraocular muscles are intact. Tenderness to palpation is felt along bilateral greater occipital nerve region. Neck is supple with no masses felt. CARDIOVASCULAR: Regular rate and rhythm. ABDOMEN: Nontender, nondistended. Extremities showed no edema or clubbing. NEUROLOGICAL EXAM: The patient is alert, aware and oriented x3. Speech and language are normal. Strength is full in all 4 extremities. Sensory exam was normal to light touch in all 4 extremities. No facial asymmetry is seen on cranial nerve testing. IMPRESSION: 1. Intractable headache. 2. Occipital neuritis. 3. Atypical chest pain. RECOMMENDATION: The patient's headache has improved with a single dose of magnesium sulfate and Reglan 10 mg IV. She also received [place] 7.5 mg. She does have a history of occipital neuritis and does have significant tenderness at that point on my examination today. She is scheduled for a greater occipital nerve block procedure later this week in my clinic. I reviewed with her her inpatient workup. Otherwise, her neurological symptoms have resolved. From a neurology standpoint, she is cleared to be discharged. She will follow up in clinic for further management. Thank you for allowing me to participate in the care of your patient. If you have any questions, please feel free to contact me. MMODL / IJN: [id number] /
[2017-07-03] MEDS ORDERED: ASPIRIN 81 MG PO SCH (09:00)
--- NOTE | 2017-07-06 13:16 | CDI ---
Documentation Clarification Form Date: 07/06/2017 12:00:00 AM From: Tamara Braden Phone: If you have question, contact Kathy Rittermoresteven, Lead Producer at [phone] Admit Date: 07/02/2017 4:30:00 PM Patient Name: Josie Elizondo Visit Number: [id number] Discharge Date: 07/02/2017 ATTENTION: The Clinical Documentation Specialists (CDI) and [facility] Coding Staff appreciate your assistance in clarifying documentation. Please respond to the clarification below the line at the bottom and electronically sign. The CDI & [facility] Coding staff will review the response and follow-up if needed. Please note: Queries are made part of the Legal Health Record. If you have any questions, please contact the author of this message via ITS. Dr. Martita Viveros Ms Elizondo was admitted with a headache. She has a history of migranes and occipital neuritis. Patients headache is improved with a single dose of magnesium sulfate and Reglan, as well as [place]. Neurology is consulted on 07/02, she had significant tenderness at the point of the occipital nerve on exam. Neurologist indicates that she is scheduled for a greater occipital nerve block procedure later in the week at the clinic. Clarification regarding the cause of her headache is needed for proper reporting purposes. Please clarify, after study, what is found to be the etiology of this patients headache. Migrane Migraine with aura Other (please specify) Unknown cause Thank you for your time. Migrane Occipital neuritis MTDD
== END 2017-07-02 20:01 | disposition left against medical advice (07) | DRG 552 ==
LOC: EC 15:55 → 6SEL 19:01 → OBSVTOIN 07-02 16:30
PROVIDERS: ADMIT Internal Medicine; ATTEND Internal Medicine
DX: M54.81 Occipital neuralgia (principal); F17.210 Nicotine dependence, cigarettes, uncomplicated; G43.909 Migraine, unspecified, not intractable, without status migrainosus; R07.89 Other chest pain; F41.9 Anxiety disorder, unspecified; J32.0 Chronic maxillary sinusitis; K22.70 Barrett's esophagus without dysplasia; M47.812 Spondylosis without myelopathy or radiculopathy, cervical region; Z79.891 Long term (current) use of opiate analgesic; Z79.899 Other long term (current) drug therapy; Z86.73 Personal history of transient ischemic attack (TIA), and cerebral infarction without residual deficits; Z88.5 Allergy status to narcotic agent; Z91.018 Allergy to other foods; Z71.6 Tobacco abuse counseling; Z83.3 Family history of diabetes mellitus; Z82.49 Family history of ischemic heart disease and other diseases of the circulatory system; Z87.442 Personal history of urinary calculi; Z90.49 Acquired absence of other specified parts of digestive tract; Z90.710 Acquired absence of both cervix and uterus; Z98.51 Tubal ligation status
CPT/HCPCS: 36415; 70450; 71046; 80053; 80306; 82550; 82553; 83036; 84484; 85025; 85379; 85610; 85730; 93005; 93306; 93880; 96374; 96375; 99285

== ENCOUNTER 2017-08-09 16:58 | Emergency (ER) | payer OTHER ==
[2017-08-09 17:12] VITALS: TEMP 98
--- NOTE | 2017-08-09 18:28 | XR ---
PROCEDURE: XR forearm RT, 2 views DATE AND TIME: 08/09/2017 5:50 PM REFERRING PHYSICIAN: Andrews Hoang CLINICAL INDICATION: PHH, Pain TECHNIQUE: Department protocol. COMPARISON: None FINDINGS: There is no fracture or malalignment. The soft tissues are unremarkable. IMPRESSION: NO ACUTE PROCESS.
[2017-08-09] MEDS ORDERED: KETOROLAC 30 MG/ML 1 ML VIAL IM STA (18:38)
[2017-08-09 18:45] LABS: Appearance,Urine Clear (Clear); Bilirubin,Urine Negative (Negative); Blood,Urine Negative (Negative); Color,Urine Yellow; Glucose,Urine (UA) Negative (Negative); Ketones,Urine Negative (Negative); Leukocyte Esterase,Urine Negative (Negative); Nitrite,Urine Negative (Negative); PH, Urine 5.5 (5.0-8.0); Protein,Urine Negative (Negative); Specific Gravity,Urine 1.008 (1.001-1.035); Urobilinogen,Urine <2.0 mg/dL (<2.0)
--- NOTE | 2017-08-09 19:04 | ED ---
General Adult HPI - General Chief complaint: Extremity Problem,Nontraumatic Stated complaint: elbow pain Time Seen by Provider: 08/09/17 17:42 Source: patient, RN notes reviewed Mode of arrival: ambulatory Limitations: no limitations - History of Present Illness Initial comments: 41-year-old female presents to the emergency department for a chief complaint of right elbow pain 3 weeks. Patient denies any injury. Patient states it hurts worse when she extends her right arm or supinates her right arm. Patient denies pain in the shoulder or wrist. Patient denies any chest pain or shortness of breath. Patient denies pain anywhere else. Patient did see her primary for this who thought it was a muscular problem and prescribed her Motrin. Patient states the Motrin isn't helping much. Patient would like a second opinion. Patient also complains of right-sided flank pain for 20 minutes. Patient states the pain is tolerable but she has had kidney stones before so would like to be evaluated. Patient denies dysuria or any other urinary symptoms. Patient is having bowel movements normally. Patient has no other complaints at this time including shortness of breath, chest pain, abdominal pain, nausea or vomiting, headache, or visual changes. - Related Data Home Medications Medication Instructions Recorded Confirmed Butalb/APAP/Caff 50-325-40Mg 2 tab PO BID PRN 02/18/16 08/09/17 [Fioricet 50-325-40] Divalproex [Depakote] 250 mg PO BID 12/07/16 08/09/17 Cyclobenzaprine [Flexeril] 10 mg PO BID 04/09/17 08/09/17 Sertraline [Zoloft] 50 mg PO DAILY 08/09/17 08/09/17 Previous Rx's Medication Instructions Recorded Ibuprofen [Motrin] 600 mg PO Q8HR PRN #20 tab 08/09/17 Allergies Allergy/AdvReac Type Severity Reaction Status Date / Time codeine Allergy Rash/Hives Verified 08/09/17 17:24 diphenhydramine Allergy Rash/Hives Verified 08/09/17 17:24 [From Benadryl] methylprednisolone Allergy Itching Verified 08/09/17 17:24 [From Solu-Medrol] onion Allergy Unknown Verified 08/09/17 17:24 Review of Systems ROS Statement: Those systems with pertinent positive or pertinent negative responses have been documented in the HPI. ROS Other: All systems not noted in ROS Statement are negative. Past Medical History Past Medical History: CVA/TIA, Osteoarthritis (OA) Additional Past Medical History / Comment(s): DDD. 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 Delgadillo's Esophagus. carpel tunnel B/L wrist, kidney stones History of Any Multi-Drug Resistant Organisms: None Reported Past Surgical History: Appendectomy, Cholecystectomy, Hysterectomy, Tubal Ligation Additional Past Surgical History / Comment(s): PAIN CLINIC PROCEDURES Past Anesthesia/Blood Transfusion Reactions: No Reported Reaction Past Psychological History: Anxiety Smoking Status: Current every day smoker Past Alcohol Use History: None Reported Past Drug Use History: None Reported - Past Family History Mother Family Medical History: Diabetes Mellitus, Hypertension Additional Family Medical History / Comment(s): lupus Father Family Medical History: Unable to Obtain Additional Family Medical History / Comment(s): aunt and uncle mother side with CAD s/p CABG General Exam Limitations: no limitations General appearance: alert, in no apparent distress Head exam: Present: atraumatic, normocephalic, normal inspection Respiratory exam: Present: normal lung sounds bilaterally. Absent: respiratory distress, wheezes, rales, rhonchi, stridor Cardiovascular Exam: Present: regular rate, normal rhythm, normal heart sounds. Absent: systolic murmur, diastolic murmur, rubs, gallop, clicks GI/Abdominal exam: Present: soft, normal bowel sounds. Absent: distended, tenderness, guarding, rebound, rigid Extremities exam: Present: full ROM (Patient has full flexion and extension of the right elbow but complains of pain with full extension and supination.), normal capillary refill (Radial pulse 2+ in the right upper extremity. Capillary refill less than 2 seconds.), other (Sensation intact in the right upper extremity.). Absent: tenderness (No tenderness in the right elbow or rest of the right upper extremity.), joint swelling (No swelling noted in the right elbow.) Back exam: Present: full ROM. Absent: tenderness, CVA tenderness (R), CVA tenderness (L), paraspinal tenderness, vertebral tenderness Course Vital Signs 08/09/17 17:10 Temperature 98.0 F Pulse Rate 104 H Respiratory 20 Rate Blood Pressure 127/84 O2 Sat by Pulse 100 Oximetry Medical Decision Making - Medical Decision Making 41-year-old female presents to the emergency department for a chief complaint of right elbow pain 3 weeks. Patient states the pain is worse when she extends and pronates the right arm. She states it hurts to reach out to grab her coffee cup. Patient has seen her primary for this and was diagnosed with a muscular spasm. She has been taking Motrin which has not been helping. Patient denies any injury to the elbow. On exam patient has full extension and supination of the right elbow however she does have some pain with these movements. Patient has full flexion. X-ray of the right elbow shows no acute fractures or dislocations. Patient was wrapped with an Andre wrap and given a sling at her request. Patient states she is holding her elbow up due to the pain and that it would help. Patient was educated that she needs to do range of motion exercises multiple times per day with her shoulder so as to not have her shoulder freeze up. She will follow-up with orthopedics in one to 2 days. Patient also complains of right-sided flank pain. Negative CVA tenderness or tenderness of the back. She states this pain started 20 minutes ago. She has a history of kidney stones. Urinalysis showed no blood. She is to follow up with primary care for this or return to the emergency department if symptoms worsen. - Lab Data Lab Results 08/09/17 Range/Units 18:25 Urine Color Yellow Urine Appearance Clear (Clear) Urine pH 5.5 (5.0-8.0) Ur Specific [place] 1.008 (1.001-1.035) Urine Protein Negative (Negative) Urine Glucose (UA) Negative (Negative) Urine Ketones Negative (Negative) Urine Blood Negative (Negative) Urine Nitrite Negative (Negative) Urine Bilirubin Negative (Negative) Urine Urobilinogen <2.0 (<2.0) mg/dL Ur Leukocyte Esterase Negative (Negative) Disposition Clinical Impression: Elbow pain, right Disposition: HOME SELF-CARE Condition: Good Instructions: Elbow Sprain (ED) Additional Instructions: Please take Motrin and Tylenol for pain relief. Please return to the emergency department if symptoms worsen. Please remember to do range of motion exercises. You may apply heat to the elbow if that is helpful. Otherwise, follow up with orthopedics in one to 2 days. Prescriptions: Ibuprofen [Motrin] 600 mg PO Q8HR PRN #20 tab PRN Reason: Pain Is patient prescribed a controlled substance at d/c from ED?: No Referrals: Malena Milner MD [Primary Care Provider] - 1-2 days Tru Najera MD [Medical Doctor] - 1-2 days Time of Disposition: 19:03
[2017-08-09 19:24] VITALS: BP 144/81; PULSE 75; RESP 19
== END 2017-08-09 19:22 | disposition home or self-care (01) ==
LOC: EC 16:58
DX: M25.521 Pain in right elbow (principal); F41.9 Anxiety disorder, unspecified; F17.200 Nicotine dependence, unspecified, uncomplicated; Z86.73 Personal history of transient ischemic attack (TIA), and cerebral infarction without residual deficits; Z87.442 Personal history of urinary calculi; Z79.899 Other long term (current) drug therapy; Z88.5 Allergy status to narcotic agent; Z88.8 Allergy status to other drugs, medicaments and biological substances; Z91.018 Allergy to other foods
CPT/HCPCS: 81003; 73090; 99284; 96372; J1885

== ENCOUNTER 2017-08-11 23:50 | Emergency (ER) | payer OTHER ==
[2017-08-12 00:01] VITALS: RESP 18
[2017-08-12 00:27] LABS: Basophils # (A) 0.1 k/uL (0-0.2); Basophils % (A) 1 %; Eosinophils # (A) 0.4 k/uL (0-0.7); Eosinophils % (A) 3 %; HCT 43.3 % (34.0-46.0); Lymphocytes # (A) 3.4 k/uL (1.0-4.8); Lymphocytes % (A) 26 %; MCH 33.1 pg (25.0-35.0); MCHC 34.6 g/dL (31.0-37.0); MCV 95.8 fL (80.0-100.0); Mean Platelet Volume 8.6; Monocytes # (A) 0.6 k/uL (0-1.0); Monocytes % (A) 5 %; Neutrophils # (A) 8.5 k/uL (1.3-7.7); Neutrophils % (A) 65 %; Platelet Count 191 k/uL (150-450); RBC 4.52 m/uL (3.80-5.40); RDW 12.9 % (11.5-15.5); WBC 13.1 k/uL (3.8-10.6)
[2017-08-12 00:28] LABS: Appearance,Urine Clear (Clear); Bilirubin,Urine Negative (Negative); Blood,Urine Negative (Negative); Color,Urine Light Yellow; Glucose,Urine (UA) Negative (Negative); Ketones,Urine Negative (Negative); Leukocyte Esterase,Urine Negative (Negative); Nitrite,Urine Negative (Negative); Protein,Urine Negative (Negative); Specific Gravity,Urine 1.004 (1.001-1.035); Urobilinogen,Urine <2.0 mg/dL (<2.0)
[2017-08-12 00:37] LABS: Partial Thromboplastin Time 23.9 sec (22.0-30.0); Prothrombin Time 9.9 sec (9.0-12.0)
[2017-08-12] MEDS ORDERED: SODIUM CHLORIDE 0.9% 1,000 ML IV ONE (00:45)
[2017-08-12] MEDS ORDERED: KETOROLAC 30 MG/ML 1 ML VIAL IVP STA (00:45)
[2017-08-12] MEDS ORDERED: ONDANSETRON 4 MG/2 ML VIAL IVP STA (00:45)
[2017-08-12 00:50] LABS: Creatine Kinase 112 U/L (30-135)
[2017-08-12 01:03] LABS: Creatine Kinase MB 0.3 ng/mL (0.0-2.4); Troponin I <0.012 ng/mL (0.000-0.034)
[2017-08-12 01:06] LABS: ALT 29 U/L (9-52); AST 24 U/L (14-36); Albumin 4.4 g/dL (3.5-5.0); Alkaline Phosphatase 64 U/L (38-126); Anion Gap 14 mmol/L; Blood Urea Nitrogen 7 mg/dL (7-17); Calcium 9.9 mg/dL (8.4-10.2); Carbon Dioxide 23 mmol/L (22-30); Chloride 105 mmol/L (98-107); Glucose 83 mg/dL (74-99); Magnesium 1.8 mg/dL (1.6-2.3); Potassium 4.2 mmol/L (3.5-5.1); Sodium 142 mmol/L (137-145); Total Bilirubin 0.3 mg/dL (0.2-1.3); Total Protein 7.2 g/dL (6.3-8.2)
--- NOTE | 2017-08-12 01:09 | ED ---
General Adult HPI - General Chief complaint: Chest Pain Stated complaint: Flank Pain Time Seen by Provider: 08/12/17 00:05 Source: patient, EMS Mode of arrival: EMS Limitations: no limitations - History of Present Illness Initial comments: 41-year-old female patient presents to the emergency department today for evaluation of right flank pain. Patient states this started a couple hours prior to arrival. Patient states that the pain center into a panic anxiety attack and she began having chest pain and shortness of breath. Patient states that she has had kidney stones in the past. States that her pain feels similar. States that the pain starts in her right flank and radiates around into her right groin. Patient states she thinks she passed a kidney stone when she gave us a urine sample. Patient denies any fevers or chills. States he has been nauseated and did vomit. States that she has had diarrhea for the last 2 days. She denies any hematochezia or melena with this. Patient denies any recent rash, constipation, back pain, numbness, tingling, dizziness, weakness, hematuria, dysuria, urinary urgency, urinary frequency, headache, visual changes, or any other complaints. Patient has had cholecystectomy and appendectomy in the past. - Related Data Home Medications Medication Instructions Recorded Confirmed Butalb/APAP/Caff 50-325-40Mg 2 tab PO BID PRN 02/18/16 08/09/17 [Fioricet 50-325-40] Divalproex [Depakote] 250 mg PO BID 12/07/16 08/09/17 Cyclobenzaprine [Flexeril] 10 mg PO BID 04/09/17 08/09/17 Sertraline [Zoloft] 50 mg PO DAILY 08/09/17 08/09/17 Previous Rx's Medication Instructions Recorded Ibuprofen [Motrin] 600 mg PO Q8HR PRN #20 tab 08/09/17 Ibuprofen [Motrin] 600 mg PO Q8HR PRN #30 tab 08/12/17 Tamsulosin HCl [Flomax] 0.4 mg PO DAILY #7 cap 08/12/17 Allergies Allergy/AdvReac Type Severity Reaction Status Date / Time codeine Allergy Rash/Hives Verified 08/12/17 00:00 diphenhydramine Allergy Rash/Hives Verified 08/12/17 00:00 [From Benadryl] methylprednisolone Allergy Itching Verified 08/12/17 00:00 [From Solu-Medrol] onion Allergy Unknown Verified 08/12/17 00:00 Review of Systems ROS Statement: Those systems with pertinent positive or pertinent negative responses have been documented in the HPI. ROS Other: All systems not noted in ROS Statement are negative. Past Medical History Past Medical History: CVA/TIA, Osteoarthritis (OA) Additional Past Medical History / Comment(s): DDD. 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 Delgadillo's Esophagus. carpel tunnel B/L wrist, kidney stones, angina History of Any Multi-Drug Resistant Organisms: None Reported Past Surgical History: Appendectomy, Cholecystectomy, Hysterectomy, Tubal Ligation Additional Past Surgical History / Comment(s): PAIN CLINIC PROCEDURES Past Anesthesia/Blood Transfusion Reactions: No Reported Reaction Past Psychological History: Anxiety Smoking Status: Current every day smoker Past Alcohol Use History: None Reported Past Drug Use History: None Reported - Past Family History Mother Family Medical History: Diabetes Mellitus, Hypertension Additional Family Medical History / Comment(s): lupus Father Family Medical History: Unable to Obtain Additional Family Medical History / Comment(s): aunt and uncle mother side with CAD s/p CABG General Exam Limitations: no limitations General appearance: alert, in no apparent distress, other (This is a well- developed, well-nourished adult female patient in no acute distress. Vital signs upon presentation are temperature 99.0F, pulse 105, respirations 18, blood pressure 133/84, pulse ox 96% on room air.) Eye exam: Present: normal appearance, PERRL, EOMI. Absent: scleral icterus, conjunctival injection, periorbital swelling ENT exam: Present: normal exam, normal oropharynx, mucous membranes moist Respiratory exam: Present: normal lung sounds bilaterally. Absent: respiratory distress, wheezes, rales, rhonchi, stridor Cardiovascular Exam: Present: regular rate, normal rhythm, normal heart sounds. Absent: systolic murmur, diastolic murmur, rubs, gallop, clicks GI/Abdominal exam: Present: soft, tenderness (Right lower quadrant abdomen), normal bowel sounds. Absent: distended, guarding, rebound, rigid Back exam: Present: normal inspection, CVA tenderness (R). Absent: CVA tenderness (L) Neurological exam: Present: alert, oriented X3, CN II-XII intact Psychiatric exam: Present: normal affect, normal mood Skin exam: Present: warm, dry, intact, normal color. Absent: rash Course Vital Signs 08/11/17 08/12/17 08/12/17 23:57 00:52 02:07 Temperature 99.0 F 98.3 F Pulse Rate 105 H 85 76 Respiratory 18 18 18 Rate Blood Pressure 133/84 103/55 122/70 O2 Sat by Pulse 96 95 98 Oximetry EKG Findings - EKG Comments: EKG Findings:: EKG obtained at 0002 shows sinus tachycardia with a ventricular rate of 105, OK interval 128, QR nondenominational 70, QT 334, QTC 441. No evidence of ST elevation or depression. Medical Decision Making - Medical Decision Making 41-year-old female patient presented to the emergency department today for evaluation of right flank pain with radiation to the right groin. Patient physical exam does reveal some mild right lower quadrant abdominal tenderness and right flank tenderness. Labs reviewed and were unremarkable. She did have slight elevation in her white blood cell count which is felt to be reactive from pain and stress. Her and urinalysis was negative for any evidence of blood. Patient states when she urinated she did see a black stone in the toilet and feels this may have been a kidney stone passing. We will give her Flomax and anti-inflammatory pain medication. She is instructed to follow-up with urology for recheck. Return parameters discussed in detail. She verbalizes understanding and agrees this plan. - Lab Data Result diagrams: 08/11/17 23:55 08/11/17 23:55 Lab Results 08/11/17 08/11/17 08/11/17 Range/Units 23:55 23:55 23:55 WBC 13.1 H (3.8-10.6) k/uL RBC 4.52 (3.80-5.40) m/uL Hgb 15.0 (11.4-16.0) gm/dL Hct 43.3 (34.0-46.0) % MCV 95.8 (80.0-100.0) fL MCH 33.1 (25.0-35.0) pg MCHC 34.6 (31.0-37.0) g/dL RDW 12.9 (11.5-15.5) % Plt Count 191 (150-450) k/uL Neutrophils % 65 % Lymphocytes % 26 % Monocytes % 5 % Eosinophils % 3 % Basophils % 1 % Neutrophils # 8.5 H (1.3-7.7) k/uL Lymphocytes # 3.4 (1.0-4.8) k/uL Monocytes # 0.6 (0-1.0) k/uL Eosinophils # 0.4 (0-0.7) k/uL Basophils # 0.1 (0-0.2) k/uL PT (9.0-12.0) sec INR (<1.2) APTT (22.0-30.0) sec Sodium (137-145) mmol/L Potassium (3.5-5.1) mmol/L Chloride (98-107) mmol/L Carbon Dioxide (22-30) mmol/L Anion Gap mmol/L BUN (7-17) mg/dL Creatinine (0.52-1.04) mg/dL Est GFR (CKD-EPI)AfAm (>60 ml/min/1.73 sqM) Est GFR (CKD-EPI)NonAf (>60 ml/min/1.73 sqM) Glucose (74-99) mg/dL Calcium (8.4-10.2) mg/dL Magnesium (1.6-2.3) mg/dL Total Bilirubin (0.2-1.3) mg/dL AST (14-36) U/L ALT (9-52) U/L Alkaline Phosphatase (38-126) U/L Total Creatine Kinase 112 (30-135) U/L CK-MB (CK-2) 0.3 (0.0-2.4) ng/mL CK-MB (CK-2) Rel Index 0.3 Troponin I <0.012 (0.000-0.034) ng/mL Total Protein (6.3-8.2) g/dL Albumin (3.5-5.0) g/dL Urine Color Light Yellow Urine Appearance Clear (Clear) Urine pH 7.0 (5.0-8.0) Ur Specific [place] 1.004 (1.001-1.035) Urine Protein Negative (Negative) Urine Glucose (UA) Negative (Negative) Urine Ketones Negative (Negative) Urine Blood Negative (Negative) Urine Nitrite Negative (Negative) Urine Bilirubin Negative (Negative) Urine Urobilinogen <2.0 (<2.0) mg/dL Ur Leukocyte Esterase Negative (Negative) 08/11/17 08/11/17 Range/Units 23:55 23:55 WBC (3.8-10.6) k/uL RBC (3.80-5.40) m/uL Hgb (11.4-16.0) gm/dL Hct (34.0-46.0) % MCV (80.0-100.0) fL MCH (25.0-35.0) pg MCHC (31.0-37.0) g/dL RDW (11.5-15.5) % Plt Count (150-450) k/uL Neutrophils % % Lymphocytes % % Monocytes % % Eosinophils % % Basophils % % Neutrophils # (1.3-7.7) k/uL Lymphocytes # (1.0-4.8) k/uL Monocytes # (0-1.0) k/uL Eosinophils # (0-0.7) k/uL Basophils # (0-0.2) k/uL PT 9.9 (9.0-12.0) sec INR 1.0 (<1.2) APTT 23.9 (22.0-30.0) sec Sodium 142 (137-145) mmol/L Potassium 4.2 (3.5-5.1) mmol/L Chloride 105 (98-107) mmol/L Carbon Dioxide 23 (22-30) mmol/L Anion Gap 14 mmol/L BUN 7 (7-17) mg/dL Creatinine 0.50 L (0.52-1.04) mg/dL Est GFR (CKD-EPI)AfAm >90 (>60 ml/min/1.73 sqM) Est GFR (CKD-EPI)NonAf >90 (>60 ml/min/1.73 sqM) Glucose 83 (74-99) mg/dL Calcium 9.9 (8.4-10.2) mg/dL Magnesium 1.8 (1.6-2.3) mg/dL Total Bilirubin 0.3 (0.2-1.3) mg/dL AST 24 (14-36) U/L ALT 29 (9-52) U/L Alkaline Phosphatase 64 (38-126) U/L Total Creatine Kinase (30-135) U/L CK-MB (CK-2) (0.0-2.4) ng/mL CK-MB (CK-2) Rel Index Troponin I (0.000-0.034) ng/mL Total Protein 7.2 (6.3-8.2) g/dL Albumin 4.4 (3.5-5.0) g/dL Urine Color Urine Appearance (Clear) Urine pH (5.0-8.0) Ur Specific [place] (1.001-1.035) Urine Protein (Negative) Urine Glucose (UA) (Negative) Urine Ketones (Negative) Urine Blood (Negative) Urine Nitrite (Negative) Urine Bilirubin (Negative) Urine Urobilinogen (<2.0) mg/dL Ur Leukocyte Esterase (Negative) - Radiology Data Radiology results: report reviewed, image reviewed Two-view x-ray of the chest is obtained. Heart and mediastinum are normal. Lungs are clear. Diaphragm is normal. There are chest leads. Bony thorax is intact. Impression by Dr. Cavanaugh shows normal chest with no change. Disposition Clinical Impression: Flank pain, Abdominal pain Disposition: HOME SELF-CARE Condition: Good Instructions: Abdominal Pain (ED), Flank Pain (ED) Additional Instructions: Take medications as directed. Follow-up with urology for further evaluation. Follow up with her primary care physician for recheck in 1-2 days. Return here immediately for any new, worsening, or concerning symptoms. Prescriptions: Ibuprofen [Motrin] 600 mg PO Q8HR PRN #30 tab PRN Reason: Pain Tamsulosin HCl [Flomax] 0.4 mg PO DAILY #7 cap Is patient prescribed a controlled substance at d/c from ED?: No Referrals: Malena Milner MD [Primary Care Provider] - 1-2 days Miko Gutierrez MD [STAFF PHYSICIAN] - 1-2 days Time of Disposition: 01:31
--- NOTE | 2017-08-12 01:10 | XR ---
EXAMINATION TYPE: XR chest 2V DATE OF EXAM: 08/12/2017 COMPARISON: 07/01/2017 HISTORY: Left-sided numbness TECHNIQUE: Frontal and lateral views of the chest are obtained. FINDINGS: Heart and mediastinum are normal. Lungs are clear. Diaphragm is normal. There are chest le ads. Bony thorax is intact. IMPRESSION: Normal chest. No change.
[2017-08-12] MEDS ORDERED: HYDROcodone/APAP 5-325MG 1 EACH TAB PO STA (01:28)
[2017-08-12 02:08] VITALS: BP 122/70; PULSE 76; TEMP 98.3
== END 2017-08-12 02:12 | disposition home or self-care (01) ==
LOC: EC 23:50
DX: R10.31 Right lower quadrant pain (principal); R07.9 Chest pain, unspecified; R11.2 Nausea with vomiting, unspecified; G43.909 Migraine, unspecified, not intractable, without status migrainosus; F41.9 Anxiety disorder, unspecified; F17.200 Nicotine dependence, unspecified, uncomplicated; Z86.73 Personal history of transient ischemic attack (TIA), and cerebral infarction without residual deficits; Z90.49 Acquired absence of other specified parts of digestive tract; Z90.710 Acquired absence of both cervix and uterus; Z98.51 Tubal ligation status; Z79.899 Other long term (current) drug therapy; Z88.5 Allergy status to narcotic agent; Z88.8 Allergy status to other drugs, medicaments and biological substances; Z91.018 Allergy to other foods; Z87.442 Personal history of urinary calculi
CPT/HCPCS: 36415; 93005; 80053; 82550; 82553; 83735; 84484; 85025; 85610; 85730; 81003; 71046; 99285; 96374; 96375; 96361; J2405; J1885

== ENCOUNTER 2017-08-28 22:37 | Emergency (ER) | payer OTHER ==
[2017-08-28 22:42] VITALS: RESP 18; TEMP 98.5
[2017-08-28] MEDS ORDERED: HYDROcodone/APAP 5-325MG 1 EACH TAB PO STA (23:26)
--- NOTE | 2017-08-28 23:26 | ED ---
General Adult HPI - General Chief complaint: Extremity Injury, Upper Stated complaint: arm pain Time Seen by Provider: 08/28/17 23:16 Source: patient, RN notes reviewed, old records reviewed Mode of arrival: ambulatory Limitations: no limitations - History of Present Illness Initial comments: This is a 41-year-old female the ER for evaluation. Patient's complaining of right elbow pain, seizure was in severe right elbow pain. She's had prior evaluation with unknown diagnosis. Patient presents today for evaluation continue pain, decreased range of motion extensive fingers. No other significant injuries that she can think of - Related Data Home Medications Medication Instructions Recorded Confirmed Butalb/APAP/Caff 50-325-40Mg 2 tab PO BID PRN 02/18/16 08/28/17 [Fioricet 50-325-40] Divalproex [Depakote] 250 mg PO BID 12/07/16 08/28/17 Cyclobenzaprine [Flexeril] 10 mg PO BID 04/09/17 08/28/17 Sertraline [Zoloft] 50 mg PO DAILY 08/09/17 08/28/17 Previous Rx's Medication Instructions Recorded Ibuprofen [Motrin] 600 mg PO Q8HR PRN #30 tab 08/12/17 Allergies Allergy/AdvReac Type Severity Reaction Status Date / Time codeine Allergy Rash/Hives Verified 08/28/17 23:00 diphenhydramine Allergy Rash/Hives Verified 08/28/17 23:00 [From Benadryl] methylprednisolone Allergy Itching Verified 08/28/17 23:00 [From Solu-Medrol] onion Allergy Unknown Verified 08/28/17 23:00 Review of Systems ROS Statement: Those systems with pertinent positive or pertinent negative responses have been documented in the HPI. ROS Other: All systems not noted in ROS Statement are negative. Past Medical History Past Medical History: CVA/TIA, Osteoarthritis (OA) Additional Past Medical History / Comment(s): DDD. 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 Delgadillo's Esophagus. carpel tunnel B/L wrist, kidney stones, angina History of Any Multi-Drug Resistant Organisms: None Reported Past Surgical History: Appendectomy, Cholecystectomy, Hysterectomy, Tubal Ligation Additional Past Surgical History / Comment(s): PAIN CLINIC PROCEDURES Past Anesthesia/Blood Transfusion Reactions: No Reported Reaction Past Psychological History: Anxiety Smoking Status: Current every day smoker Past Alcohol Use History: None Reported Past Drug Use History: None Reported - Past Family History Mother Family Medical History: Diabetes Mellitus, Hypertension Additional Family Medical History / Comment(s): lupus Father Family Medical History: Unable to Obtain Additional Family Medical History / Comment(s): aunt and uncle mother side with CAD s/p CABG General Exam Limitations: no limitations General appearance: alert, in no apparent distress Head exam: Present: atraumatic, normocephalic, normal inspection Eye exam: Present: normal appearance, PERRL, EOMI. Absent: scleral icterus, conjunctival injection, periorbital swelling ENT exam: Present: normal exam, mucous membranes moist Neck exam: Present: normal inspection. Absent: tenderness, meningismus, lymphadenopathy Respiratory exam: Present: normal lung sounds bilaterally. Absent: respiratory distress, wheezes, rales, rhonchi, stridor Cardiovascular Exam: Present: regular rate, normal rhythm, normal heart sounds. Absent: systolic murmur, diastolic murmur, rubs, gallop, clicks GI/Abdominal exam: Present: soft, normal bowel sounds. Absent: distended, tenderness, guarding, rebound, rigid Extremities exam: Present: normal inspection, full ROM, normal capillary refill , other (Right elbow tenderness, no neurological or neurovascular defect). Absent: tenderness, pedal edema, joint swelling, calf tenderness Back exam: Present: normal inspection Neurological exam: Present: alert, oriented X3, CN II-XII intact Psychiatric exam: Present: normal affect, normal mood Skin exam: Present: warm, dry, intact, normal color. Absent: rash Course Vital Signs 08/28/17 22:38 Temperature 98.5 F Pulse Rate 91 Respiratory 18 Rate Blood Pressure 136/83 O2 Sat by Pulse 99 Oximetry - Reevaluation(s) Reevaluation #1: 08/28/17 23:26 Patient will follow-up with orthopedics, discussed at length need to follow-up with orthopedics for evaluation Medical Decision Making - Medical Decision Making 41 female the ER for positive right elbow pain right elbow has no fracture currently seen. Patient follow-up with orthopedics for continued evaluation - Radiology Data Radiology results: report reviewed (X-rays negative for acute disease), image reviewed Disposition Clinical Impression: Elbow pain, right Disposition: HOME SELF-CARE Condition: Good Instructions: Elbow Bursitis (ED), Elbow Sprain (ED) Is patient prescribed a controlled substance at d/c from ED?: No Referrals: Malena Milner MD [Primary Care Provider] - 1-2 days
--- NOTE | 2017-08-28 23:30 | XR ---
EXAMINATION TYPE: XR elbow complete RT DATE OF EXAM: 08/28/2017 COMPARISON: NONE HISTORY: Elbow pain TECHNIQUE: 3 views FINDINGS: I see no fracture nor dislocation. Joint spaces are normal. There is no sign of elbow joint effusion. IMPRESSION: Negative right elbow exam.
[2017-08-28 23:47] VITALS: BP 130/88; PULSE 86
== END 2017-08-28 23:48 | disposition home or self-care (01) ==
LOC: EC 22:37
DX: M25.521 Pain in right elbow (principal); F41.9 Anxiety disorder, unspecified; F17.200 Nicotine dependence, unspecified, uncomplicated; Z79.899 Other long term (current) drug therapy; Z88.5 Allergy status to narcotic agent; Z88.8 Allergy status to other drugs, medicaments and biological substances; Z91.018 Allergy to other foods; Z86.69 Personal history of other diseases of the nervous system and sense organs; Z87.39 Personal history of other diseases of the musculoskeletal system and connective tissue
CPT/HCPCS: 99284

== ENCOUNTER 2017-10-10 14:59 | Emergency (ER) | payer OTHER ==
[2017-10-10 15:12] VITALS: RESP 20; TEMP 98.3
[2017-10-10] MEDS ORDERED: KETOROLAC 30 MG/ML 1 ML VIAL IVP STA (15:12)
[2017-10-10 15:25] LABS: Basophils # (A) 0.1 k/uL (0-0.2); Basophils % (A) 1 %; Eosinophils # (A) 0.3 k/uL (0-0.7); Eosinophils % (A) 4 %; HCT 47.7 % (34.0-46.0); HGB 16.3 gm/dL (11.4-16.0); Lymphocytes # (A) 2.2 k/uL (1.0-4.8); Lymphocytes % (A) 29 %; MCH 32.8 pg (25.0-35.0); MCHC 34.2 g/dL (31.0-37.0); MCV 96.2 fL (80.0-100.0); Mean Platelet Volume 8.8; Monocytes # (A) 0.6 k/uL (0-1.0); Monocytes % (A) 8 %; Neutrophils # (A) 4.4 k/uL (1.3-7.7); Neutrophils % (A) 57 %; Platelet Count 214 k/uL (150-450); RBC 4.96 m/uL (3.80-5.40); WBC 7.8 k/uL (3.8-10.6)
[2017-10-10 15:38] LABS: Partial Thromboplastin Time 23.9 sec (22.0-30.0); Prothrombin Time 9.8 sec (9.0-12.0)
--- NOTE | 2017-10-10 15:38 | XR ---
EXAMINATION TYPE: XR chest 2V DATE OF EXAM: 10/10/2017 COMPARISON: NONE HISTORY: Chest pain TECHNIQUE: Frontal and lateral views of the chest are obtained. FINDINGS: There is no focal air space opacity. No evidence for pneumothorax. No pleural effusion. The cardiac silhouette size is within normal limits. The osseous structures are grossly intact. IMPRESSION: 1. No acute cardiopulmonary process.
[2017-10-10 15:40] LABS: ALT 28 U/L (9-52); AST 26 U/L (14-36); Albumin 4.7 g/dL (3.5-5.0); Alkaline Phosphatase 65 U/L (38-126); Anion Gap 10 mmol/L; Blood Urea Nitrogen 7 mg/dL (7-17); Calcium 9.8 mg/dL (8.4-10.2); Carbon Dioxide 24 mmol/L (22-30); Chloride 104 mmol/L (98-107); Glucose 94 mg/dL (74-99); Potassium 4.3 mmol/L (3.5-5.1); Sodium 138 mmol/L (137-145); Total Bilirubin 0.3 mg/dL (0.2-1.3); Total Protein 7.5 g/dL (6.3-8.2)
[2017-10-10 15:52] LABS: Creatine Kinase 102 U/L (30-135)
--- NOTE | 2017-10-10 15:55 | ED ---
General Adult HPI - General Chief complaint: Chest Pain Stated complaint: Chest Pain Time Seen by Provider: 10/10/17 15:11 Source: patient, RN notes reviewed, old records reviewed Mode of arrival: ambulatory Limitations: no limitations - History of Present Illness Initial comments: This is a 41-year-old female the ER for evaluation per patient presented for evaluation regarding chest pain. Anterior chest pain left-sided breast pain. No recent travel history no sick contacts. Patient does have history of similar complaints. Patient denies significant shortness of breath, sudden onset of symptoms just prior to arrival. No recent fevers no cough or congestion. Patient denies illicit drugs or alcohol - Related Data Home Medications Medication Instructions Recorded Confirmed Cyclobenzaprine [Flexeril] 10 mg PO BID 04/09/17 10/10/17 Sertraline [Zoloft] 50 mg PO DAILY 08/09/17 10/10/17 Etodolac [Lodine] 400 mg PO BID 10/10/17 10/10/17 Previous Rx's Medication Instructions Recorded Ibuprofen [Motrin] 600 mg PO Q8HR PRN #30 tab 08/12/17 Naproxen [Naprosyn] 500 mg PO Q12HR PRN #30 tab 08/28/17 Allergies Allergy/AdvReac Type Severity Reaction Status Date / Time codeine Allergy Rash/Hives Verified 10/10/17 15:24 diphenhydramine Allergy Rash/Hives Verified 10/10/17 15:24 [From Benadryl] methylprednisolone Allergy Itching Verified 10/10/17 15:24 [From Solu-Medrol] onion Allergy Unknown Verified 10/10/17 15:24 Review of Systems ROS Statement: Those systems with pertinent positive or pertinent negative responses have been documented in the HPI. ROS Other: All systems not noted in ROS Statement are negative. Past Medical History Past Medical History: CVA/TIA, Osteoarthritis (OA) Additional Past Medical History / Comment(s): DDD. 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 Delgadillo's Esophagus. carpel tunnel B/L wrist, kidney stones, angina History of Any Multi-Drug Resistant Organisms: None Reported Past Surgical History: Appendectomy, Cholecystectomy, Hysterectomy, Tubal Ligation Additional Past Surgical History / Comment(s): PAIN CLINIC PROCEDURES Past Anesthesia/Blood Transfusion Reactions: No Reported Reaction Past Psychological History: Anxiety Smoking Status: Current every day smoker Past Alcohol Use History: None Reported Past Drug Use History: None Reported - Past Family History Mother Family Medical History: Diabetes Mellitus, Hypertension Additional Family Medical History / Comment(s): lupus Father Family Medical History: Unable to Obtain Additional Family Medical History / Comment(s): aunt and uncle mother side with CAD s/p CABG General Exam Limitations: no limitations General appearance: alert, in no apparent distress, anxious Head exam: Present: atraumatic, normocephalic, normal inspection Eye exam: Present: normal appearance, PERRL, EOMI. Absent: scleral icterus, conjunctival injection, periorbital swelling ENT exam: Present: normal exam, mucous membranes moist Neck exam: Present: normal inspection. Absent: tenderness, meningismus, lymphadenopathy Respiratory exam: Present: normal lung sounds bilaterally. Absent: respiratory distress, wheezes, rales, rhonchi, stridor Cardiovascular Exam: Present: regular rate, normal rhythm, normal heart sounds. Absent: systolic murmur, diastolic murmur, rubs, gallop, clicks GI/Abdominal exam: Present: soft, normal bowel sounds. Absent: distended, tenderness, guarding, rebound, rigid Extremities exam: Present: normal inspection, full ROM, normal capillary refill. Absent: tenderness, pedal edema, joint swelling, calf tenderness Back exam: Present: normal inspection Neurological exam: Present: alert, oriented X3, CN II-XII intact Psychiatric exam: Present: normal affect, normal mood Skin exam: Present: warm, dry, intact, normal color. Absent: rash Course Vital Signs 10/10/17 15:00 Temperature 98.3 F Pulse Rate 110 H Respiratory 20 Rate Blood Pressure 147/73 O2 Sat by Pulse 99 Oximetry - Reevaluation(s) Reevaluation #1: 10/10/17 15:54 Patient is without significant chest pain currently. Medical records thoroughly reviewed with multiple ER visits for similar complaints EKG Findings - EKG Comments: EKG Findings:: EKG shows sinus rhythm rate of 93, NM 112, QRS 64, QTC 1:15 Medical Decision Making - Medical Decision Making 41 female DEL chest pain history of chest pain, patient very anxious upon arrival to ER, symptoms of anxiety or improved. Patient symptoms of chest pain is improved. Chest x-ray labwork is normal EKG is normal troponin is negative patient can be discharged home - Lab Data Result diagrams: 10/10/17 15:00 10/10/17 15:00 Lab Results 10/10/17 10/10/17 10/10/17 Range/Units 15:00 15:00 15:00 WBC 7.8 (3.8-10.6) k/uL RBC 4.96 (3.80-5.40) m/uL Hgb 16.3 H (11.4-16.0) gm/dL Hct 47.7 H (34.0-46.0) % MCV 96.2 (80.0-100.0) fL MCH 32.8 (25.0-35.0) pg MCHC 34.2 (31.0-37.0) g/dL RDW 13.0 (11.5-15.5) % Plt Count 214 (150-450) k/uL Neutrophils % 57 % Lymphocytes % 29 % Monocytes % 8 % Eosinophils % 4 % Basophils % 1 % Neutrophils # 4.4 (1.3-7.7) k/uL Lymphocytes # 2.2 (1.0-4.8) k/uL Monocytes # 0.6 (0-1.0) k/uL Eosinophils # 0.3 (0-0.7) k/uL Basophils # 0.1 (0-0.2) k/uL PT (9.0-12.0) sec INR (<1.2) APTT (22.0-30.0) sec Sodium 138 (137-145) mmol/L Potassium 4.3 (3.5-5.1) mmol/L Chloride 104 (98-107) mmol/L Carbon Dioxide 24 (22-30) mmol/L Anion Gap 10 mmol/L BUN 7 (7-17) mg/dL Creatinine 0.50 L (0.52-1.04) mg/dL Est GFR (CKD-EPI)AfAm >90 (>60 ml/min/1.73 sqM) Est GFR (CKD-EPI)NonAf >90 (>60 ml/min/1.73 sqM) Glucose 94 (74-99) mg/dL Calcium 9.8 (8.4-10.2) mg/dL Magnesium 2.0 (1.6-2.3) mg/dL Total Bilirubin 0.3 (0.2-1.3) mg/dL AST 26 (14-36) U/L ALT 28 (9-52) U/L Alkaline Phosphatase 65 (38-126) U/L Total Creatine Kinase 102 (30-135) U/L Total Protein 7.5 (6.3-8.2) g/dL Albumin 4.7 (3.5-5.0) g/dL 10/10/17 Range/Units 15:00 WBC (3.8-10.6) k/uL RBC (3.80-5.40) m/uL Hgb (11.4-16.0) gm/dL Hct (34.0-46.0) % MCV (80.0-100.0) fL MCH (25.0-35.0) pg MCHC (31.0-37.0) g/dL RDW (11.5-15.5) % Plt Count (150-450) k/uL Neutrophils % % Lymphocytes % % Monocytes % % Eosinophils % % Basophils % % Neutrophils # (1.3-7.7) k/uL Lymphocytes # (1.0-4.8) k/uL Monocytes # (0-1.0) k/uL Eosinophils # (0-0.7) k/uL Basophils # (0-0.2) k/uL PT 9.8 (9.0-12.0) sec INR 1.0 (<1.2) APTT 23.9 (22.0-30.0) sec Sodium (137-145) mmol/L Potassium (3.5-5.1) mmol/L Chloride (98-107) mmol/L Carbon Dioxide (22-30) mmol/L Anion Gap mmol/L BUN (7-17) mg/dL Creatinine (0.52-1.04) mg/dL Est GFR (CKD-EPI)AfAm (>60 ml/min/1.73 sqM) Est GFR (CKD-EPI)NonAf (>60 ml/min/1.73 sqM) Glucose (74-99) mg/dL Calcium (8.4-10.2) mg/dL Magnesium (1.6-2.3) mg/dL Total Bilirubin (0.2-1.3) mg/dL AST (14-36) U/L ALT (9-52) U/L Alkaline Phosphatase (38-126) U/L Total Creatine Kinase (30-135) U/L Total Protein (6.3-8.2) g/dL Albumin (3.5-5.0) g/dL - Radiology Data Radiology results: report reviewed (Chest x-rays negative for acute disease), image reviewed Disposition Clinical Impression: Chest pain, Chronic back pain, Atypical chest pain, Panic attack Disposition: HOME SELF-CARE Condition: Good Instructions: Chest Pain (ED) Is patient prescribed a controlled substance at d/c from ED?: No Referrals: Malena Milner MD [Primary Care Provider] - 1-2 days
[2017-10-10 16:04] LABS: Creatine Kinase MB 0.2 ng/mL (0.0-2.4); Troponin I <0.012 ng/mL (0.000-0.034)
[2017-10-10] MEDS ORDERED: MORPHINE SULFATE 4 MG/ML SYRINGE IVP STA (16:12)
[2017-10-10] MEDS ORDERED: LORazepam 2 MG/ML INJ IV STA (16:13)
[2017-10-10 16:25] VITALS: BP 143/72; PULSE 98
== END 2017-10-10 16:30 | disposition home or self-care (01) ==
LOC: EC 14:59
DX: G89.29 Other chronic pain (principal); M54.9 Dorsalgia, unspecified; R07.89 Other chest pain; F41.0 Panic disorder [episodic paroxysmal anxiety]; N64.4 Mastodynia; M19.90 Unspecified osteoarthritis, unspecified site; Z79.899 Other long term (current) drug therapy; F17.200 Nicotine dependence, unspecified, uncomplicated; Z79.1 Long term (current) use of non-steroidal anti-inflammatories (NSAID); Z88.5 Allergy status to narcotic agent; Z88.8 Allergy status to other drugs, medicaments and biological substances; Z91.018 Allergy to other foods; Z82.49 Family history of ischemic heart disease and other diseases of the circulatory system
CPT/HCPCS: 36415; 93005; 80053; 82550; 82553; 83735; 84484; 85025; 85610; 85730; 71046; 99285; 96374; 96375 ×2; J2060; J2270; J1885

== ENCOUNTER 2017-11-15 23:16 | Emergency (ER) | payer OTHER ==
[2017-11-16] MEDS ORDERED: SODIUM CHLORIDE 0.9% 1,000 ML IV STA (00:41)
[2017-11-16] MEDS ORDERED: ONDANSETRON 4 MG/2 ML VIAL IVP STA (00:41)
[2017-11-16] MEDS ORDERED: MORPHINE SULFATE 4 MG/ML SYRINGE IV STA ×2 (00:41→03:01)
--- NOTE | 2017-11-16 00:43 | ED ---
General Adult HPI - General Chief complaint: Abdominal Pain Stated complaint: Poss kidney stone Time Seen by Provider: 11/16/17 00:39 Source: patient, RN notes reviewed, old records reviewed Mode of arrival: ambulatory Limitations: no limitations - History of Present Illness Initial comments: Patient 41-year-old female significant past medical history for kidney stones, presented to the emergency room today with a chief complaint of right-sided flank pain that began approximate hour half ago. Patient does admit that pain starts in the right side of her lower back radiates around to the right groin area. Patient states does feel similar to kidney stones as before. Patient admits pains also worse with certain movements. She denies any other complaints or symptoms. Patient denies any recent fever, chills, shortness of breath, chest pain, numbness or tingling, dysuria or hematuria, constipation or diarrhea, headaches or visual changes, or any other complaints. - Related Data Home Medications Medication Instructions Recorded Confirmed Cyclobenzaprine [Flexeril] 10 mg PO BID 04/09/17 10/10/17 Sertraline [Zoloft] 50 mg PO DAILY 08/09/17 10/10/17 Etodolac [Lodine] 400 mg PO BID 10/10/17 10/10/17 Previous Rx's Medication Instructions Recorded Ibuprofen [Motrin] 600 mg PO Q8HR PRN #30 tab 08/12/17 Naproxen [Naprosyn] 500 mg PO Q12HR PRN #30 tab 08/28/17 Dicyclomine [Bentyl] 20 mg PO QID #20 tablet 11/16/17 Ondansetron Odt [Zofran ODT] 4 mg PO Q8HR PRN #20 tab 11/16/17 Allergies Allergy/AdvReac Type Severity Reaction Status Date / Time codeine Allergy Rash/Hives Verified 11/15/17 23:28 diphenhydramine Allergy Rash/Hives Verified 11/15/17 23:28 [From Benadryl] methylprednisolone Allergy Itching Verified 11/15/17 23:28 [From Solu-Medrol] onion Allergy Unknown Verified 11/15/17 23:28 Review of Systems ROS Statement: Those systems with pertinent positive or pertinent negative responses have been documented in the HPI. ROS Other: All systems not noted in ROS Statement are negative. Past Medical History Past Medical History: CVA/TIA, Osteoarthritis (OA) Additional Past Medical History / Comment(s): DDD. 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 Delgadillo's Esophagus. carpel tunnel B/L wrist, kidney stones, angina History of Any Multi-Drug Resistant Organisms: None Reported Past Surgical History: Appendectomy, Cholecystectomy, Hysterectomy, Tubal Ligation Additional Past Surgical History / Comment(s): PAIN CLINIC PROCEDURES Past Anesthesia/Blood Transfusion Reactions: No Reported Reaction Past Psychological History: Anxiety Smoking Status: Current every day smoker Past Alcohol Use History: None Reported Past Drug Use History: None Reported - Past Family History Mother Family Medical History: Diabetes Mellitus, Hypertension Additional Family Medical History / Comment(s): lupus Father Family Medical History: Unable to Obtain Additional Family Medical History / Comment(s): aunt and uncle mother side with CAD s/p CABG General Exam - General Exam Comments Initial Comments: General: The patient is awake and alert, mild discomfort. Eye: Pupils are equal, round and reactive to light, extra-ocular movements are intact. No nystagmus. There is normal conjunctiva bilaterally. No signs of icterus. Ears, nose, mouth and throat: There are moist mucous membranes and no oral lesions. Neck: The neck is supple, there is no tenderness or JVD. Cardiovascular: There is a regular rate and rhythm. No murmur, rub or gallop is appreciated. Respiratory: Lungs are clear to auscultation, respirations are non-labored, breath sounds are equal. No wheezes, stridor, rales, or rhonchi. Gastrointestinal: Abdomen soft on palpation. Mild tenderness right flank. No rebound, guarding. Musculoskeletal: Normal ROM, no tenderness. Strength 5/5. Sensation intact. Neurological: A&O x 3. CN II-XII intact, There are no obvious motor or sensory deficits. Coordination appears grossly intact. Speech is normal. Skin: Skin is warm and dry and no rashes or lesions are noted. Psychiatric: Cooperative, appropriate mood & affect, normal judgment. Limitations: no limitations Course Vital Signs 11/15/17 23:26 Temperature 98.3 F Pulse Rate 102 H Respiratory 18 Rate Blood Pressure 106/72 O2 Sat by Pulse 97 Oximetry Medical Decision Making - Medical Decision Making Patient reexamined at this time does but that she's had some increased cramping after contrast was used through the IV for her CAT scan. She states she's had contrast in the past and has not had a reaction. She feels increased cramping on the right side of the abdomen. Patient CT of the abdomen and pelvis is unremarkable. Patient's labs been reviewed does show 15,000 white count. She does admit that she's had diarrhea for the past 3 days. Admits to 3-5 episodes per day. Patient remaining labs been reviewed unremarkable. Patient will be discharged home to follow-up the family doctor in the morning. She'll be given a prescription for Zofran and Bentyl for her symptoms. Advised to return here to the emergency room if any symptoms increase or worsen or for any other concerns. - Lab Data Result diagrams: 11/16/17 01:10 11/16/17 01:10 Lab Results 11/16/17 11/16/17 11/16/17 Range/Units 01:00 01:00 01:10 WBC (3.8-10.6) k/uL RBC (3.80-5.40) m/uL Hgb (11.4-16.0) gm/dL Hct (34.0-46.0) % MCV (80.0-100.0) fL MCH (25.0-35.0) pg MCHC (31.0-37.0) g/dL RDW (11.5-15.5) % Plt Count (150-450) k/uL Neutrophils % % Lymphocytes % % Monocytes % % Eosinophils % % Basophils % % Neutrophils # (1.3-7.7) k/uL Lymphocytes # (1.0-4.8) k/uL Monocytes # (0-1.0) k/uL Eosinophils # (0-0.7) k/uL Basophils # (0-0.2) k/uL Sodium 138 (137-145) mmol/L Potassium 4.2 (3.5-5.1) mmol/L Chloride 108 H (98-107) mmol/L Carbon Dioxide 24 (22-30) mmol/L Anion Gap 6 mmol/L BUN 4 L (7-17) mg/dL Creatinine 0.60 (0.52-1.04) mg/dL Est GFR (CKD-EPI)AfAm >90 (>60 ml/min/1.73 sqM) Est GFR (CKD-EPI)NonAf >90 (>60 ml/min/1.73 sqM) Glucose 85 (74-99) mg/dL Calcium 9.5 (8.4-10.2) mg/dL Total Bilirubin 0.5 (0.2-1.3) mg/dL AST 28 (14-36) U/L ALT 33 (9-52) U/L Alkaline Phosphatase 65 (38-126) U/L Total Protein 6.2 L (6.3-8.2) g/dL Albumin 3.8 (3.5-5.0) g/dL Amylase 55 (30-110) U/L Lipase 91 (23-300) U/L Urine Color Yellow Urine Appearance Clear (Clear) Urine pH 5.5 (5.0-8.0) Ur Specific [place] 1.015 (1.001-1.035) Urine Protein Negative (Negative) Urine Glucose (UA) Negative (Negative) Urine Ketones Negative (Negative) Urine Blood Negative (Negative) Urine Nitrite Negative (Negative) Urine Bilirubin 3+ H (Negative) Urine Urobilinogen 2.0 (<2.0) mg/dL Ur Leukocyte Esterase Negative (Negative) Urine HCG, Qual Not Detected (Not Detectd) 11/16/17 Range/Units 01:10 WBC 15.5 H (3.8-10.6) k/uL RBC 4.71 (3.80-5.40) m/uL Hgb 15.7 (11.4-16.0) gm/dL Hct 46.3 H (34.0-46.0) % MCV 98.2 (80.0-100.0) fL MCH 33.3 (25.0-35.0) pg MCHC 33.9 (31.0-37.0) g/dL RDW 13.2 (11.5-15.5) % Plt Count 214 (150-450) k/uL Neutrophils % 28 % Lymphocytes % 19 % Monocytes % 48 % Eosinophils % 0 % Basophils % 1 % Neutrophils # 4.3 (1.3-7.7) k/uL Lymphocytes # 2.9 (1.0-4.8) k/uL Monocytes # 7.4 H (0-1.0) k/uL Eosinophils # 0.1 (0-0.7) k/uL Basophils # 0.1 (0-0.2) k/uL Sodium (137-145) mmol/L Potassium (3.5-5.1) mmol/L Chloride (98-107) mmol/L Carbon Dioxide (22-30) mmol/L Anion Gap mmol/L BUN (7-17) mg/dL Creatinine (0.52-1.04) mg/dL Est GFR (CKD-EPI)AfAm (>60 ml/min/1.73 sqM) Est GFR (CKD-EPI)NonAf (>60 ml/min/1.73 sqM) Glucose (74-99) mg/dL Calcium (8.4-10.2) mg/dL Total Bilirubin (0.2-1.3) mg/dL AST (14-36) U/L ALT (9-52) U/L Alkaline Phosphatase (38-126) U/L Total Protein (6.3-8.2) g/dL Albumin (3.5-5.0) g/dL Amylase (30-110) U/L Lipase (23-300) U/L Urine Color Urine Appearance (Clear) Urine pH (5.0-8.0) Ur Specific [place] (1.001-1.035) Urine Protein (Negative) Urine Glucose (UA) (Negative) Urine Ketones (Negative) Urine Blood (Negative) Urine Nitrite (Negative) Urine Bilirubin (Negative) Urine Urobilinogen (<2.0) mg/dL Ur Leukocyte Esterase (Negative) Urine HCG, Qual (Not Detectd) Disposition Clinical Impression: Acute diarrhea, Abdominal pain Disposition: HOME SELF-CARE Instructions: Abdominal Pain (ED) Additional Instructions: Please use medication as discussed. Please follow-up with family doctor in the next 2 days of symptoms have not improved. Please return to emergency room if the symptoms increase or worsen or for any other concerns. Prescriptions: Dicyclomine [Bentyl] 20 mg PO QID #20 tablet Ondansetron Odt [Zofran ODT] 4 mg PO Q8HR PRN #20 tab PRN Reason: Nausea Is patient prescribed a controlled substance at d/c from ED?: No Referrals: Malena Milner MD [Primary Care Provider] - 1-2 days Time of Disposition: 03:03
--- NOTE | 2017-11-16 01:20 | XR ---
EXAMINATION TYPE: XR KUB DATE OF EXAM: 11/16/2017 COMPARISON: 04/09/2017 HISTORY: Right flank pain TECHNIQUE: 2 views upright FINDINGS: There are clips from cholecystectomy. There is no sign of intestinal obstruction or pneumop eritoneum. There are surgical clips in the right mid abdomen. Lung bases are clear. There are no path ologic calcifications over the kidneys. IMPRESSION: Nonacute abdomen. No change.
[2017-11-16 01:41] LABS: Basophils # (A) 0.1 k/uL (0-0.2); Basophils % (A) 1 %; Eosinophils # (A) 0.1 k/uL (0-0.7); Eosinophils % (A) 0 %; HCT 46.3 % (34.0-46.0); HGB 15.7 gm/dL (11.4-16.0); Lymphocytes # (A) 2.9 k/uL (1.0-4.8); Lymphocytes % (A) 19 %; MCH 33.3 pg (25.0-35.0); MCHC 33.9 g/dL (31.0-37.0); MCV 98.2 fL (80.0-100.0); Mean Platelet Volume 8.4; Monocytes # (A) 7.4 k/uL (0-1.0); Monocytes % (A) 48 %; Neutrophils # (A) 4.3 k/uL (1.3-7.7); Neutrophils % (A) 28 %; Platelet Count 214 k/uL (150-450); RBC 4.71 m/uL (3.80-5.40); RDW 13.2 % (11.5-15.5); WBC 15.5 k/uL (3.8-10.6)
[2017-11-16 01:42] LABS: Appearance,Urine Clear (Clear); Bilirubin,Urine 3+ (Negative); Blood,Urine Negative (Negative); Color,Urine Yellow; Glucose,Urine (UA) Negative (Negative); Ketones,Urine Negative (Negative); Leukocyte Esterase,Urine Negative (Negative); Nitrite,Urine Negative (Negative); PH, Urine 5.5 (5.0-8.0); Protein,Urine Negative (Negative); Specific Gravity,Urine 1.015 (1.001-1.035)
[2017-11-16 01:57] LABS: ALT 33 U/L (9-52); AST 28 U/L (14-36); Albumin 3.8 g/dL (3.5-5.0); Alkaline Phosphatase 65 U/L (38-126); Amylase 55 U/L (30-110); Anion Gap 6 mmol/L; Blood Urea Nitrogen 4 mg/dL (7-17); Calcium 9.5 mg/dL (8.4-10.2); Carbon Dioxide 24 mmol/L (22-30); Chloride 108 mmol/L (98-107); Glucose 85 mg/dL (74-99); Lipase 91 U/L (23-300); Potassium 4.2 mmol/L (3.5-5.1); Sodium 138 mmol/L (137-145); Total Bilirubin 0.5 mg/dL (0.2-1.3); Total Protein 6.2 g/dL (6.3-8.2)
[2017-11-16] MEDS ORDERED: FAMOTIDINE 20 MG/2 ML VIAL IV STA (02:40)
--- NOTE | 2017-11-16 02:48 | CT ---
EXAMINATION TYPE: CT abdomen pelvis w con DATE OF EXAM: 11/16/2017 COMPARISON: 04/09/2017 HISTORY: Prior on syanpse, right flank pain, history of appendectomy, cholecystectony and hysterectom y CT DLP: 948.30 mGycm Automated exposure control for dose reduction was used. TECHNIQUE: Helical acquisition of images was performed from the lung bases through the pelvis. CONTRAST: Performed without Oral Contrast and with IV Contrast, patient injected with 100 mL of Isovue 300. FINDINGS: Lung bases are clear. There is no pleural effusion. Liver and spleen appear normal. There are clips f rom cholecystectomy. Bile ducts are not dilated. There is no pancreatic mass. There is no adrenal mass. Kidneys show satisfactory contrast opacification. There is no hydronephrosi s. There is no retroperitoneal adenopathy. Bladder distends smoothly. There is no free fluid in the p hilary. I see no intestinal wall thickening. There are no dilated loops. There is no sign of pneumoper itoneum. There are clips from appendectomy. Lumbar spine appears intact. I see no bony destructive pr ocess. There is no ascites. IMPRESSION: NEGATIVE CT SCAN OF THE ABDOMEN AND PELVIS. NO EVIDENCE OF RENAL STONE OR OBSTRUCTION. NO ADVERSE LIONEL NGE COMPARED TO OLD EXAM.
[2017-11-16 03:22] VITALS: BP 124/72; PULSE 79; RESP 17; TEMP 98.2
== END 2017-11-16 03:25 | disposition home or self-care (01) ==
LOC: EC 23:16
DX: R19.7 Diarrhea, unspecified (principal); R10.31 Right lower quadrant pain; M54.5 Low back pain; M19.90 Unspecified osteoarthritis, unspecified site; F41.9 Anxiety disorder, unspecified; F17.200 Nicotine dependence, unspecified, uncomplicated; Z79.1 Long term (current) use of non-steroidal anti-inflammatories (NSAID); Z79.899 Other long term (current) drug therapy; Z88.5 Allergy status to narcotic agent; Z88.8 Allergy status to other drugs, medicaments and biological substances; Z91.018 Allergy to other foods; Z90.49 Acquired absence of other specified parts of digestive tract
CPT/HCPCS: 99285 ×2; 96374 ×3; 96375 ×4; 96376 ×2; 96361 ×2; 99284; 36415; 80053; 82150; 83690; 85025; 81003; 81025; 87040; 74018; 93975; 76830; 74177; J2270; J2405; J1885; Q9967

== ENCOUNTER 2017-11-16 19:29 | Emergency (ER) | payer OTHER ==
[2017-11-16 20:25] LABS: Appearance,Urine Clear (Clear); Bilirubin,Urine 1+ (Negative); Blood,Urine Negative (Negative); Color,Urine Yellow; Glucose,Urine (UA) Negative (Negative); Ketones,Urine Trace (Negative); Leukocyte Esterase,Urine Negative (Negative); Nitrite,Urine Negative (Negative); PH, Urine 7.5 (5.0-8.0); Protein,Urine Negative (Negative); Specific Gravity,Urine 1.012 (1.001-1.035); Urobilinogen,Urine <2.0 mg/dL (<2.0)
[2017-11-16] MEDS ORDERED: ONDANSETRON 4 MG/2 ML VIAL IVP STA (20:45)
[2017-11-16] MEDS ORDERED: KETOROLAC 30 MG/ML 1 ML VIAL IVP STA (20:45)
[2017-11-16 21:08] LABS: Basophils % (A) 1 %; Eosinophils # (A) 0.3 k/uL (0-0.7); Eosinophils % (A) 5 %; HCT 43.9 % (34.0-46.0); HGB 14.8 gm/dL (11.4-16.0); Lymphocytes # (A) 1.5 k/uL (1.0-4.8); Lymphocytes % (A) 27 %; MCH 33.4 pg (25.0-35.0); MCHC 33.8 g/dL (31.0-37.0); Mean Platelet Volume 8.5; Monocytes # (A) 0.2 k/uL (0-1.0); Monocytes % (A) 4 %; Neutrophils # (A) 3.6 k/uL (1.3-7.7); Neutrophils % (A) 63 %; Platelet Count 191 k/uL (150-450); RBC 4.43 m/uL (3.80-5.40); RDW 13.3 % (11.5-15.5); WBC 5.7 k/uL (3.8-10.6)
[2017-11-16 21:17] LABS: ALT 124 U/L (9-52); AST 123 U/L (14-36); Albumin 3.4 g/dL (3.5-5.0); Alkaline Phosphatase 84 U/L (38-126); Anion Gap 4 mmol/L; Blood Urea Nitrogen 7 mg/dL (7-17); Calcium 9.2 mg/dL (8.4-10.2); Carbon Dioxide 29 mmol/L (22-30); Chloride 106 mmol/L (98-107); Glucose 83 mg/dL (74-99); Potassium 4.7 mmol/L (3.5-5.1); Sodium 139 mmol/L (137-145); Total Bilirubin 0.3 mg/dL (0.2-1.3); Total Protein 5.9 g/dL (6.3-8.2)
[2017-11-16] MEDS ORDERED: MORPHINE SULFATE 4 MG/ML SYRINGE IVP STA (21:33)
--- NOTE | 2017-11-16 22:18 | US ---
EXAMINATION TYPE: US transvaginal DATE OF EXAM: 11/16/2017 COMPARISON: CLINICAL HISTORY: Pain. Right groin pain. Uterus removed in 2006. Still has both ovaries. TECHNIQUE: Transvaginal (TV). Date of LMP: Uterus removed EXAM MEASUREMENTS: Right Ovary: 3.5 x 2.3 x 2.3 cm Left Ovary: 2.9 x 1.8 x 1.8 cm 1. Uterus: Surgically absent 2. Endometrium: Surgically absent 3. Right Ovary: Cystic appearing lesion seen with internal echoes- 1.8 x 1.6 x 1.5 cm 4. Left Ovary: wnl Spectral, color and waveform doppler imaging shows good arterial and venous flow within the ovaries ; there is no evidence for ovarian torsion. 5. Bilateral Adnexa: wnl 6. Posterior cul-de-sac: no free fluid IMPRESSION: Complex right ovarian cyst. No evidence of ovarian torsion.
--- NOTE | 2017-11-16 22:48 | ED ---
General Adult HPI - General Source: patient, RN notes reviewed Mode of arrival: ambulatory Limitations: no limitations <Andrews Hoang P - Last Filed: 11/16/17 23:32> <Kiarra Ervin P - Last Filed: 11/18/17 05:02> - General Chief complaint: Abdominal Pain Stated complaint: abdominal pain-revisit Time Seen by Provider: 11/16/17 20:13 - History of Present Illness Initial comments: 41-year-old female since to the emergency determine for chief complaint of right low back pain radiating to the right groin 2 days. Patient states she has also had nausea and vomiting as well as diarrhea for the past 2 days. Patient denies fevers or chills at home. Patient denies any dysuria. Patient does have a history of kidney stones. She states she thought she had a kidney stone yesterday but had a workup. No evidence for kidney stone was found. Patient denies any vaginal bleeding or discharge. Patient has no other complaints at this time including shortness of breath, chest pain, headache, or visual changes. (Andrews Hoang) - Related Data Home Medications Medication Instructions Recorded Confirmed Cyclobenzaprine [Flexeril] 10 mg PO TID PRN 04/09/17 11/16/17 Etodolac [Lodine] 400 mg PO BID 10/10/17 11/16/17 Butalb/APAP/Caff 50-325-40Mg 1 - 2 tab PO Q4H PRN 11/16/17 11/16/17 [Fioricet 50-325-40] Divalproex [Depakote] 250 mg PO BID 11/16/17 11/16/17 Previous Rx's Medication Instructions Recorded Dicyclomine [Bentyl] 20 mg PO QID #20 tablet 11/16/17 Ondansetron Odt [Zofran ODT] 4 mg PO Q8HR PRN #20 tab 11/16/17 Allergies Allergy/AdvReac Type Severity Reaction Status Date / Time codeine Allergy Rash/Hives Verified 11/16/17 22:53 diphenhydramine Allergy Rash/Hives Verified 11/16/17 22:53 [From Benadryl] methylprednisolone Allergy Itching Verified 11/16/17 22:53 [From Solu-Medrol] onion Allergy Unknown Verified 11/16/17 22:53 Review of Systems ROS Other: All systems not noted in ROS Statement are negative. <Andrews Hoang P - Last Filed: 11/16/17 23:32> ROS Other: All systems not noted in ROS Statement are negative. <Kelle Ervinica P - Last Filed: 11/18/17 05:02> ROS Statement: Those systems with pertinent positive or pertinent negative responses have been documented in the HPI. Past Medical History Past Medical History: CVA/TIA, Osteoarthritis (OA) Additional Past Medical History / Comment(s): DDD. 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 Delgadillo's Esophagus. carpel tunnel B/L wrist, kidney stones, angina History of Any Multi-Drug Resistant Organisms: None Reported Past Surgical History: Appendectomy, Cholecystectomy, Hysterectomy, Tubal Ligation Additional Past Surgical History / Comment(s): PAIN CLINIC PROCEDURES Past Anesthesia/Blood Transfusion Reactions: No Reported Reaction Past Psychological History: Anxiety Smoking Status: Current every day smoker Past Alcohol Use History: None Reported Past Drug Use History: None Reported - Past Family History Mother Family Medical History: Diabetes Mellitus, Hypertension Additional Family Medical History / Comment(s): lupus Father Family Medical History: Unable to Obtain Additional Family Medical History / Comment(s): aunt and uncle mother side with CAD s/p CABG <Andrews Hoang P - Last Filed: 11/16/17 23:32> General Exam Limitations: no limitations General appearance: alert, in no apparent distress Head exam: Present: atraumatic, normocephalic, normal inspection Eye exam: Present: normal appearance. Absent: scleral icterus, conjunctival injection ENT exam: Present: normal exam, mucous membranes moist Neck exam: Present: normal inspection, full ROM. Absent: tenderness, meningismus, lymphadenopathy Respiratory exam: Present: normal lung sounds bilaterally. Absent: respiratory distress, wheezes, rales, rhonchi, stridor Cardiovascular Exam: Present: regular rate, normal rhythm, normal heart sounds. Absent: systolic murmur, diastolic murmur, rubs, gallop, clicks GI/Abdominal exam: Present: soft, tenderness (Mild RLQ tenderness, negative obturator/psoas sign. No tenderness elsewhere in the abdomen), normal bowel sounds. Absent: distended, guarding, rebound, rigid Back exam: Absent: CVA tenderness (R), CVA tenderness (L) Neurological exam: Present: alert, oriented X3, CN II-XII intact Psychiatric exam: Present: normal affect, normal mood <Andrews Hoang - Last Filed: 11/16/17 23:32> Vital Signs 11/16/17 11/16/17 11/16/17 19:39 22:18 23:36 Temperature 98.3 F 98.6 F 98.1 F Pulse Rate 98 96 89 Respiratory 18 18 20 Rate Blood Pressure 109/77 115/78 112/78 O2 Sat by Pulse 98 98 98 Oximetry Medical Decision Making - Lab Data Result diagrams: 11/16/17 20:55 11/16/17 20:55 <Andrews Hoang P - Last Filed: 11/16/17 23:32> - Lab Data Result diagrams: 11/16/17 20:55 11/16/17 20:55 <Kiarra Ervin P - Last Filed: 11/18/17 05:02> - Medical Decision Making 41-year-old female presents to the emergency department for a chief complaint of right low back pain radiating to the right groin. Patient complains of vomiting and diarrhea 2 days. Patient has a temperature of 98.6, afebrile. Pulse rate 96. Blood pressure within normal limits. White blood cell 5.7 which is decreased from yesterday. CBC and CMP unremarkable. Urine shows no evidence of infection. Patient had a negative CT abdomen and pelvis yesterday because of her history of kidney stones so that was not repeated. Ultrasound does show a complex right ovarian cyst. No evidence of ovarian torsion. Patient's pain is constant and not consistent with ovarian torsion. Patient was given Toradol and morphine and is feeling much better. Zofran decreased her nausea. Patient is likely extremity gastroenteritis as she has vomiting and diarrhea. She likely is also experiencing pain from the ovarian cyst on the right ovary. Patient will follow up with her primary care provider. She states she has an appointment with [facility] this month. Patient will return to the emergency Department if she has any worsening symptoms. (Andrews Hoang) I was available for consultation in the emergency department. The history and physical exam were done by the midlevel provider. I was consulted for this patient's care. I reviewed the case with the midlevel provider and based on their presentation of the patient, I agree with the assessment, medical decision making and plan of care as documented. (Kiarra Ervin) - Lab Data Lab Results 11/16/17 11/16/17 11/16/17 Range/Units 20:16 20:16 20:55 WBC 5.7 (3.8-10.6) k/uL RBC 4.43 (3.80-5.40) m/uL Hgb 14.8 (11.4-16.0) gm/dL Hct 43.9 (34.0-46.0) % MCV 99.0 (80.0-100.0) fL MCH 33.4 (25.0-35.0) pg MCHC 33.8 (31.0-37.0) g/dL RDW 13.3 (11.5-15.5) % Plt Count 191 (150-450) k/uL Neutrophils % 63 % Lymphocytes % 27 % Monocytes % 4 % Eosinophils % 5 % Basophils % 1 % Neutrophils # 3.6 (1.3-7.7) k/uL Lymphocytes # 1.5 (1.0-4.8) k/uL Monocytes # 0.2 (0-1.0) k/uL Eosinophils # 0.3 (0-0.7) k/uL Basophils # 0.0 (0-0.2) k/uL Sodium (137-145) mmol/L Potassium (3.5-5.1) mmol/L Chloride (98-107) mmol/L Carbon Dioxide (22-30) mmol/L Anion Gap mmol/L BUN (7-17) mg/dL Creatinine (0.52-1.04) mg/dL Est GFR (CKD-EPI)AfAm (>60 ml/min/1.73 sqM) Est GFR (CKD-EPI)NonAf (>60 ml/min/1.73 sqM) Glucose (74-99) mg/dL Calcium (8.4-10.2) mg/dL Total Bilirubin (0.2-1.3) mg/dL AST (14-36) U/L ALT (9-52) U/L Alkaline Phosphatase (38-126) U/L Total Protein (6.3-8.2) g/dL Albumin (3.5-5.0) g/dL Urine Color Yellow Urine Appearance Clear (Clear) Urine pH 7.5 (5.0-8.0) Ur Specific [place] 1.012 (1.001-1.035) Urine Protein Negative (Negative) Urine Glucose (UA) Negative (Negative) Urine Ketones Trace H (Negative) Urine Blood Negative (Negative) Urine Nitrite Negative (Negative) Urine Bilirubin 1+ H (Negative) Urine Urobilinogen <2.0 (<2.0) mg/dL Ur Leukocyte Esterase Negative (Negative) Urine HCG, Qual Not Detected (Not Detectd) 11/16/17 Range/Units 20:55 WBC (3.8-10.6) k/uL RBC (3.80-5.40) m/uL Hgb (11.4-16.0) gm/dL Hct (34.0-46.0) % MCV (80.0-100.0) fL MCH (25.0-35.0) pg MCHC (31.0-37.0) g/dL RDW (11.5-15.5) % Plt Count (150-450) k/uL Neutrophils % % Lymphocytes % % Monocytes % % Eosinophils % % Basophils % % Neutrophils # (1.3-7.7) k/uL Lymphocytes # (1.0-4.8) k/uL Monocytes # (0-1.0) k/uL Eosinophils # (0-0.7) k/uL Basophils # (0-0.2) k/uL Sodium 139 (137-145) mmol/L Potassium 4.7 (3.5-5.1) mmol/L Chloride 106 (98-107) mmol/L Carbon Dioxide 29 (22-30) mmol/L Anion Gap 4 mmol/L BUN 7 (7-17) mg/dL Creatinine 0.68 (0.52-1.04) mg/dL Est GFR (CKD-EPI)AfAm >90 (>60 ml/min/1.73 sqM) Est GFR (CKD-EPI)NonAf >90 (>60 ml/min/1.73 sqM) Glucose 83 (74-99) mg/dL Calcium 9.2 (8.4-10.2) mg/dL Total Bilirubin 0.3 (0.2-1.3) mg/dL AST 123 H (14-36) U/L ALT 124 H (9-52) U/L Alkaline Phosphatase 84 (38-126) U/L Total Protein 5.9 L (6.3-8.2) g/dL Albumin 3.4 L (3.5-5.0) g/dL Urine Color Urine Appearance (Clear) Urine pH (5.0-8.0) Ur Specific [place] (1.001-1.035) Urine Protein (Negative) Urine Glucose (UA) (Negative) Urine Ketones (Negative) Urine Blood (Negative) Urine Nitrite (Negative) Urine Bilirubin (Negative) Urine Urobilinogen (<2.0) mg/dL Ur Leukocyte Esterase (Negative) Urine HCG, Qual (Not Detectd) Disposition Is patient prescribed a controlled substance at d/c from ED?: No Time of Disposition: 23:16 <Andrews Hoang P - Last Filed: 11/16/17 23:32> <Kiarra Ervin P - Last Filed: 11/18/17 05:02> Clinical Impression: Abdominal pain, Ovarian cyst, Gastroenteritis Disposition: HOME SELF-CARE Condition: Good Instructions: Ovarian Cyst (ED) Additional Instructions: Please follow up with primary care in 1-2 days. Attend your [facility] appointment this coming month. Return to the emergency department if you have any worsening symptoms. Referrals: Malena Milner MD [Primary Care Provider] - 1-2 days
[2017-11-16 23:40] VITALS: BP 112/78; PULSE 89; RESP 20; TEMP 98.1
== END 2017-11-16 23:40 | disposition home or self-care (01) ==
LOC: EC 19:29
DX: K52.9 Noninfective gastroenteritis and colitis, unspecified (principal); N83.201 Unspecified ovarian cyst, right side; M19.90 Unspecified osteoarthritis, unspecified site; F41.9 Anxiety disorder, unspecified; F17.200 Nicotine dependence, unspecified, uncomplicated; Z86.73 Personal history of transient ischemic attack (TIA), and cerebral infarction without residual deficits; Z79.1 Long term (current) use of non-steroidal anti-inflammatories (NSAID); Z79.899 Other long term (current) drug therapy; Z88.5 Allergy status to narcotic agent; Z91.018 Allergy to other foods; Z88.8 Allergy status to other drugs, medicaments and biological substances; Z90.49 Acquired absence of other specified parts of digestive tract; Z98.51 Tubal ligation status
CPT/HCPCS: 36415; 80053; 85025; 81003; 81025; 87040; 93975; 76830; 99284; 96374; 96375 ×2; J2270; J2405; J1885

== ENCOUNTER 2017-11-24 20:58 | Emergency (ER) | payer OTHER ==
[2017-11-24] MEDS ORDERED: SODIUM CHLORIDE 0.9% 1,000 ML IV STA (21:23)
[2017-11-24] MEDS ORDERED: METOCLOPRAMIDE 5 MG/ML 2 ML VIAL IVP STA (21:23)
[2017-11-24] MEDS ORDERED: KETOROLAC 30 MG/ML 1 ML VIAL IVP STA (21:23)
--- NOTE | 2017-11-24 21:32 | ED ---
Headache HPI - General Chief Complaint: Headache Stated Complaint: migraine and poss kidney stone Time Seen by Provider: 11/24/17 21:04 Mode of arrival: ambulatory Limitations: no limitations - History of Present Illness Initial Comments: Patient is a 42-year-old female presenting for headache and abdominal pain. Patient states that she has a history of chronic migraines and was told that she had Arnold-Chiari malformation. She has been on Toradol and many other migraine cocktails and states that the last 2 days, she has been having headaches last 5-6 hours. The pain feels a pressure in her Head and pulsation. She admits to nausea but no vomiting. Additionally, she admits to abdominal pain in the right lower quadrant. She states that they had a CAT scan as well as ultrasound when she was seen here last week and she was told that she had a cyst in the ovary but no kidney stones. Additionally, she denies any urinary symptoms, vaginal bleeding, vaginal discharge states that she has had a hysterectomy in the past. - Related Data Home Medications Medication Instructions Recorded Confirmed Cyclobenzaprine [Flexeril] 10 mg PO TID PRN 04/09/17 11/16/17 Etodolac [Lodine] 400 mg PO BID 10/10/17 11/16/17 Butalb/APAP/Caff 50-325-40Mg 1 - 2 tab PO Q4H PRN 11/16/17 11/16/17 [Fioricet 50-325-40] Divalproex [Depakote] 250 mg PO BID 11/16/17 11/16/17 Previous Rx's Medication Instructions Recorded Dicyclomine [Bentyl] 20 mg PO QID #20 tablet 11/16/17 Ondansetron Odt [Zofran ODT] 4 mg PO Q8HR PRN #20 tab 11/16/17 Allergies Allergy/AdvReac Type Severity Reaction Status Date / Time codeine Allergy Rash/Hives Verified 11/24/17 21:02 diphenhydramine Allergy Rash/Hives Verified 11/24/17 21:02 [From Benadryl] methylprednisolone Allergy Itching Verified 11/24/17 21:02 [From Solu-Medrol] onion Allergy Unknown Verified 11/24/17 21:02 Review of Systems ROS Statement: Those systems with pertinent positive or pertinent negative responses have been documented in the HPI. Constitutional: Negative for chills, fatigue and fever. HENT: Negative for congestion. Respiratory: Negative for chest tightness, shortness of breath and wheezing. Negative for cough Cardiovascular: Negative for chest pain and palpitations. Gastrointestinal: Positive for abdominal pain and nausea. Negative for abdominal distention, nausea and vomiting. Genitourinary: Negative for dysuria. Musculoskeletal: Negative for back pain, neck pain and neck stiffness. Skin: Negative for color change. Neurological: Negative for dizziness, speech difficulty, weakness and light- headedness. Positive for headache Psychiatric/Behavioral: Negative for agitation and confusion. Negative for anxiety ROS Other: All systems not noted in ROS Statement are negative. Past Medical History Past Medical History: CVA/TIA, Osteoarthritis (OA) Additional Past Medical History / Comment(s): DDD. 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 Delgadillo's Esophagus. carpel tunnel B/L wrist, kidney stones, angina History of Any Multi-Drug Resistant Organisms: None Reported Past Surgical History: Appendectomy, Cholecystectomy, Hysterectomy, Tubal Ligation Additional Past Surgical History / Comment(s): PAIN CLINIC PROCEDURES Past Anesthesia/Blood Transfusion Reactions: No Reported Reaction Past Psychological History: Anxiety Smoking Status: Current every day smoker Past Alcohol Use History: None Reported Past Drug Use History: None Reported - Past Family History Mother Family Medical History: Diabetes Mellitus, Hypertension Additional Family Medical History / Comment(s): lupus Father Family Medical History: Unable to Obtain Additional Family Medical History / Comment(s): aunt and uncle mother side with CAD s/p CABG General Exam - General Exam Comments Initial Comments: Constitutional: Pt is oriented to person, place, and time. Pt appears well- developed and well-nourished. No distress. HENT: Head: Normocephalic and atraumatic. Eyes: EOM are normal. Neck: Normal range of motion. Neck supple. Cardiovascular: Tachycardic, regular rhythm, S1 normal, S2 normal and normal heart sounds. Exam reveals no gallop and no friction rub. No murmur heard. Pulmonary/Chest: Effort normal and breath sounds normal. No tachypnea and no bradypnea. No respiratory distress. No wheezes or rales noted. Abdominal: Soft. Bowel sounds are normal. Pt exhibits no shifting dullness, no distension, no pulsatile liver, no fluid wave, no abdominal bruit and no ascites. There is no tenderness. There is no rigidity, no rebound, no guarding, no tenderness at McBurney's point and negative Townsend's sign. Musculoskeletal: Normal range of motion. Neurological: Pt is alert and oriented to person, place, and time. No cranial nerve deficit. Skin: Skin is warm and dry. No rash noted. Pt is not diaphoretic. No erythema. No pallor. Psychiatric: Pt has a normal mood and affect. Pt behavior is normal. Thought content normal. Limitations: no limitations Course Vital Signs 11/24/17 11/25/17 20:59 00:01 Temperature 98.7 F 97.7 F Pulse Rate 118 H 89 Respiratory 18 20 Rate Blood Pressure 104/69 139/79 O2 Sat by Pulse 96 97 Oximetry Medical Decision Making - Medical Decision Making Laboratory studies showed that there is no significant leukocytosis and electrolytes are relatively within normal limits. There is no evidence of transaminitis and urinalysis showed no obvious signs of infection but it does appear to be a contaminated catch and therefore urine culture was ordered. Chart review showed that CT abdomen and pelvis showed no evidence of emergent pathology or kidney stones. Right-sided ovarian cyst was identified on the prior ultrasound and after discussion with the patient, it was felt that this imaging should not be completed again. This is also determined by the fact that there was little to no tenderness to the patient's abdomen. In regards to the patient's headache, the patient was given multiple migraine medicines and CT of the head was performed which showed no evidence acute pathology. Patient stated that her migraine still is there but she would like to elect to go home and "sleep it off" nonetheless, inpatient treatment was offered to the patient but she currently declined.Explained all labs and diagnostic test results and that we will discharge the patient home and patient is to follow up with PCP in 1-2 days and return to the ED if symptoms worsen. Pt is agreeable to plan. - Lab Data Result diagrams: 11/24/17 21:25 11/24/17 21:25 Lab Results 11/24/17 11/24/17 11/24/17 Range/Units 21:25 21:25 21:25 WBC 10.6 (3.8-10.6) k/uL RBC 5.05 (3.80-5.40) m/uL Hgb 16.2 H (11.4-16.0) gm/dL Hct 50.2 H (34.0-46.0) % MCV 99.4 (80.0-100.0) fL MCH 32.0 (25.0-35.0) pg MCHC 32.2 (31.0-37.0) g/dL RDW 13.5 (11.5-15.5) % Plt Count 221 (150-450) k/uL Neutrophils % 67 % Lymphocytes % 24 % Monocytes % 4 % Eosinophils % 4 % Basophils % 1 % Neutrophils # 7.0 (1.3-7.7) k/uL Lymphocytes # 2.6 (1.0-4.8) k/uL Monocytes # 0.4 (0-1.0) k/uL Eosinophils # 0.4 (0-0.7) k/uL Basophils # 0.1 (0-0.2) k/uL Sodium 138 (137-145) mmol/L Potassium 4.0 (3.5-5.1) mmol/L Chloride 108 H (98-107) mmol/L Carbon Dioxide 23 (22-30) mmol/L Anion Gap 7 mmol/L BUN 11 (7-17) mg/dL Creatinine 0.63 (0.52-1.04) mg/dL Est GFR (CKD-EPI)AfAm >90 (>60 ml/min/1.73 sqM) Est GFR (CKD-EPI)NonAf >90 (>60 ml/min/1.73 sqM) Glucose 132 H (74-99) mg/dL Calcium 8.8 (8.4-10.2) mg/dL Total Bilirubin 0.3 (0.2-1.3) mg/dL AST 19 (14-36) U/L ALT 29 (9-52) U/L Alkaline Phosphatase 42 (38-126) U/L Total Protein 5.3 L (6.3-8.2) g/dL Albumin 3.0 L (3.5-5.0) g/dL Lipase 130 (23-300) U/L Urine Color Dark Yellow Urine Appearance Turbid H (Clear) Urine pH 5.5 (5.0-8.0) Ur Specific [place] 1.038 H (1.001-1.035) Urine Protein 1+ H (Negative) Urine Glucose (UA) Negative (Negative) Urine Ketones Trace H (Negative) Urine Blood Negative (Negative) Urine Nitrite Negative (Negative) Urine Bilirubin 1+ H (Negative) Urine Urobilinogen 4.0 (<2.0) mg/dL Ur Leukocyte Esterase Trace H (Negative) Urine WBC 9 H (0-5) /hpf Ur Squamous Epith Cells 110 H (0-4) /hpf Hyaline Casts 12 H (0-2) /lpf Urine Mucus Moderate H (None) /hpf Disposition Clinical Impression: Headache, Abdominal pain Disposition: HOME SELF-CARE Condition: Good Instructions: Acute Headache (ED) Is patient prescribed a controlled substance at d/c from ED?: No Referrals: Malena Milner MD [Primary Care Provider] - 1-2 days Time of Disposition: 23:46
[2017-11-24 21:42] LABS: Appearance,Urine Turbid (Clear); Bilirubin,Urine 1+ (Negative); Blood,Urine Negative (Negative); Color,Urine Dark Yellow; Glucose,Urine (UA) Negative (Negative); Hyaline Casts,Urine 12 /lpf (0-2); Ketones,Urine Trace (Negative); Leukocyte Esterase,Urine Trace (Negative); Mucus,Urine Moderate /hpf; Nitrite,Urine Negative (Negative); PH, Urine 5.5 (5.0-8.0); Protein,Urine 1+ (Negative); Specific Gravity,Urine 1.038 (1.001-1.035); Squamous Epithelial Cell,Urine 110 /hpf (0-4); WBC,Urine 9 /hpf (0-5)
[2017-11-24 21:44] LABS: ALT 29 U/L (9-52); AST 19 U/L (14-36); Alkaline Phosphatase 42 U/L (38-126); Anion Gap 7 mmol/L; Basophils # (A) 0.1 k/uL (0-0.2); Basophils % (A) 1 %; Blood Urea Nitrogen 11 mg/dL (7-17); Calcium 8.8 mg/dL (8.4-10.2); Carbon Dioxide 23 mmol/L (22-30); Chloride 108 mmol/L (98-107); Eosinophils # (A) 0.4 k/uL (0-0.7); Eosinophils % (A) 4 %; Glucose 132 mg/dL (74-99); HCT 50.2 % (34.0-46.0); HGB 16.2 gm/dL (11.4-16.0); Lipase 130 U/L (23-300); Lymphocytes # (A) 2.6 k/uL (1.0-4.8); Lymphocytes % (A) 24 %; MCHC 32.2 g/dL (31.0-37.0); MCV 99.4 fL (80.0-100.0); Mean Platelet Volume 8.4; Monocytes # (A) 0.4 k/uL (0-1.0); Monocytes % (A) 4 %; Neutrophils % (A) 67 %; Platelet Count 221 k/uL (150-450); RBC 5.05 m/uL (3.80-5.40); RDW 13.5 % (11.5-15.5); Sodium 138 mmol/L (137-145); Total Bilirubin 0.3 mg/dL (0.2-1.3); Total Protein 5.3 g/dL (6.3-8.2); WBC 10.6 k/uL (3.8-10.6)
--- NOTE | 2017-11-24 22:03 | CT ---
EXAMINATION TYPE: CT brain wo con DATE OF EXAM: 11/24/2017 COMPARISON: 07/01/2017 HISTORY: 42-year-old female Headache. TECHNIQUE: Examination was done in axial plane without intravenous contrast. Coronal and sagittal r econstructions performed. CT DLP: 762.5 mGycm Automated exposure control for dose reduction was used. FINDINGS: There is no evidence of acute intracranial hemorrhage, acute ischemic changes, mass, mass-effect, or extra-axial fluid collection. There is no effacement of cerebral sulci or basal subarachnoid cister ns. There is no hydrocephalus. There is no midline shift. Curiel-white matter distinction is preserv ed. Streak and beam hardening artifacts related to the patient's right earring. Follow-up for mucosal retention cyst right sphenoid sinus. Mastoid air cells are well pneumatized. Vi sualized orbits and globes are intact. IMPRESSION: No acute intracranial abnormality seen.
[2017-11-24] MEDS ORDERED: SUMAtriptan SUCCINATE 6 MG/0.5 ML VIAL SQ STA (22:51)
[2017-11-25 00:02] VITALS: BP 139/79; PULSE 89; RESP 20; TEMP 97.7
== END 2017-11-25 00:03 | disposition home or self-care (01) ==
LOC: EC 20:58
DX: R51 Headache (principal); R10.31 Right lower quadrant pain; N83.201 Unspecified ovarian cyst, right side; M19.90 Unspecified osteoarthritis, unspecified site; F17.200 Nicotine dependence, unspecified, uncomplicated; Z86.69 Personal history of other diseases of the nervous system and sense organs; Z87.442 Personal history of urinary calculi; Z86.73 Personal history of transient ischemic attack (TIA), and cerebral infarction without residual deficits; Z90.49 Acquired absence of other specified parts of digestive tract; Z90.710 Acquired absence of both cervix and uterus; Z98.51 Tubal ligation status; Z79.1 Long term (current) use of non-steroidal anti-inflammatories (NSAID); Z79.899 Other long term (current) drug therapy; Z88.5 Allergy status to narcotic agent; Z88.8 Allergy status to other drugs, medicaments and biological substances; Z91.018 Allergy to other foods
CPT/HCPCS: 36415; 80053; 83690; 85025; 81001; 70450; 99284; 96374; 96375; 96361; 96372; J3030; J2765; J1885

== ENCOUNTER 2018-01-06 15:08 | Emergency (ER) | payer OTHER ==
[2018-01-06 15:13] VITALS: RESP 20; TEMP 98.2
[2018-01-06] MEDS ORDERED: SODIUM CHLORIDE 0.9% 500 ML 500 ML IV STA (15:40)
[2018-01-06] MEDS ORDERED: MORPHINE SULFATE 4 MG/ML SYRINGE IV STA (15:40)
[2018-01-06 15:56] LABS: Basophils # (A) 0.1 k/uL (0-0.2); Basophils % (A) 1 %; Eosinophils # (A) 0.4 k/uL (0-0.7); Eosinophils % (A) 4 %; HCT 46.1 % (34.0-46.0); HGB 15.7 gm/dL (11.4-16.0); Lymphocytes % (A) 31 %; MCH 33.4 pg (25.0-35.0); MCV 98.2 fL (80.0-100.0); Mean Platelet Volume 8.7; Monocytes # (A) 0.3 k/uL (0-1.0); Monocytes % (A) 4 %; Neutrophils # (A) 5.8 k/uL (1.3-7.7); Neutrophils % (A) 60 %; Platelet Count 244 k/uL (150-450); RDW 12.9 % (11.5-15.5); WBC 9.6 k/uL (3.8-10.6)
[2018-01-06 16:05] LABS: ALT 20 U/L (9-52); AST 23 U/L (14-36); Albumin 3.7 g/dL (3.5-5.0); Alkaline Phosphatase 57 U/L (38-126); Anion Gap 9 mmol/L; Blood Urea Nitrogen 8 mg/dL (7-17); Calcium 9.5 mg/dL (8.4-10.2); Carbon Dioxide 21 mmol/L (22-30); Chloride 110 mmol/L (98-107); Glucose 95 mg/dL (74-99); Lipase 230 U/L (23-300); Magnesium 1.9 mg/dL (1.6-2.3); Potassium 4.2 mmol/L (3.5-5.1); Sodium 140 mmol/L (137-145); Total Bilirubin 0.3 mg/dL (0.2-1.3); Total Protein 6.4 g/dL (6.3-8.2)
--- NOTE | 2018-01-06 16:08 | XR ---
EXAMINATION TYPE: XR chest 2V DATE OF EXAM: 01/06/2018 COMPARISON: 10/10/2017 HISTORY: Chest pain TECHNIQUE: Frontal and lateral views of the chest are obtained. FINDINGS: Heart and mediastinum are normal. Lungs are clear. Diaphragm is normal. Bony thorax appear s normal. IMPRESSION: Normal chest. No change.
[2018-01-06 16:18] LABS: Creatine Kinase 46 U/L (30-135)
[2018-01-06 16:19] LABS: D-Dimer 0.39 mg/L FEU (<0.60); INR 0.9 (<1.2); Prothrombin Time 9.5 sec (9.0-12.0)
[2018-01-06 16:30] LABS: Creatine Kinase MB 0.5 ng/mL (0.0-2.4); Troponin I <0.012 ng/mL (0.000-0.034)
--- NOTE | 2018-01-06 16:47 | ED ---
General Adult HPI - General Chief complaint: Chest Pain Stated complaint: Poss Stroke Time Seen by Provider: 01/06/18 15:15 Source: patient, RN notes reviewed, old records reviewed Mode of arrival: wheelchair Limitations: no limitations - History of Present Illness Initial comments: 42-year-old female presents with left-sided chest pain. Symptoms began approximately one hour prior to arrival. She had severe left-sided chest pain with dyspnea. Patient has no history of DVT or PE. No history of coronary artery disease. She has had evaluation for chest pain in the past. Denies any radiating character to her pain. Denies nausea vomiting or diarrhea. Denies fever or chills. Denies preceding cough. She states she was feeling quite well prior to the onset of her pain. She is a current smoker. - Related Data Home Medications Medication Instructions Recorded Confirmed Cyclobenzaprine [Flexeril] 10 mg PO BID 04/09/17 01/06/18 Butalb/APAP/Caff 50-325-40Mg 1 - 2 tab PO Q4H PRN 11/16/17 01/06/18 [Fioricet 50-325-40] Divalproex [Depakote] 250 mg PO BID 11/16/17 01/06/18 Acetaminophen Tab [Tylenol Tab] 500 mg PO Q6H 01/06/18 01/06/18 Allergies Allergy/AdvReac Type Severity Reaction Status Date / Time codeine Allergy Rash/Hives Verified 01/06/18 16:05 diphenhydramine Allergy Rash/Hives Verified 01/06/18 16:05 [From Benadryl] methylprednisolone Allergy Itching Verified 01/06/18 16:05 [From Solu-Medrol] onion Allergy Unknown Verified 01/06/18 16:05 Review of Systems ROS Statement: Those systems with pertinent positive or pertinent negative responses have been documented in the HPI. ROS Other: All systems not noted in ROS Statement are negative. Past Medical History Past Medical History: CVA/TIA, Osteoarthritis (OA) Additional Past Medical History / Comment(s): DDD. 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 Delgadillo's Esophagus. carpel tunnel B/L wrist, kidney stones, angina History of Any Multi-Drug Resistant Organisms: None Reported Past Surgical History: Appendectomy, Cholecystectomy, Hysterectomy, Tubal Ligation Additional Past Surgical History / Comment(s): PAIN CLINIC PROCEDURES Past Anesthesia/Blood Transfusion Reactions: No Reported Reaction Past Psychological History: Anxiety Smoking Status: Current every day smoker Past Alcohol Use History: None Reported Past Drug Use History: None Reported - Past Family History Mother Family Medical History: Diabetes Mellitus, Hypertension Additional Family Medical History / Comment(s): lupus Father Family Medical History: Unable to Obtain Additional Family Medical History / Comment(s): aunt and uncle mother side with CAD s/p CABG General Exam Limitations: no limitations General appearance: alert, in no apparent distress Head exam: Present: atraumatic, normocephalic Eye exam: Present: normal appearance, PERRL ENT exam: Present: normal exam Neck exam: Present: normal inspection. Absent: tenderness, meningismus Respiratory exam: Present: normal lung sounds bilaterally. Absent: respiratory distress, wheezes Cardiovascular Exam: Present: regular rate, normal rhythm GI/Abdominal exam: Present: soft. Absent: distended, tenderness, guarding Extremities exam: Present: normal inspection, normal capillary refill. Absent: pedal edema, calf tenderness Neurological exam: Present: alert, oriented X3, CN II-XII intact. Absent: motor sensory deficit Psychiatric exam: Present: anxious Skin exam: Present: warm, dry, intact. Absent: cyanosis, diaphoretic, erythema Course Vital Signs 01/06/18 01/06/18 01/06/18 15:11 15:30 16:00 Temperature 98.2 F Pulse Rate 102 H 91 90 Respiratory 20 Rate Blood Pressure 122/80 112/89 127/94 O2 Sat by Pulse 99 99 99 Oximetry 01/06/18 16:30 Temperature Pulse Rate 89 Respiratory Rate Blood Pressure 130/84 O2 Sat by Pulse 95 Oximetry EKG Findings - EKG Comments: EKG Findings:: EKG: Sinus tachycardia, rate of 107 DC interval 118, QRS duration 68, QTC 448 Medical Decision Making - Medical Decision Making 42-year-old female presenting with left-sided chest pain and dyspnea. Patient has normal vitals with the exception of some mild tachycardia on initial evaluation. Lungs are clear to auscultation, distal pulses are intact. EKG is nonischemic. She is worked up in the emergency department including a chest x- ray which is negative for pneumothorax or acute cardiopulmonary disease. CBC, CMP, troponin are all negative. D-dimer is normal. Patient is given Toradol morphine and after several hours reevaluated, stable vital signs, pain is significantly improved. She does admit to having anxiety which is been diagnosed in the past. She will be discharged home with close outpatient follow -up. - Lab Data Result diagrams: 01/06/18 15:32 01/06/18 15:32 Lab Results 01/06/18 01/06/18 01/06/18 Range/Units 15:32 15:32 15:32 WBC 9.6 (3.8-10.6) k/uL RBC 4.70 (3.80-5.40) m/uL Hgb 15.7 (11.4-16.0) gm/dL Hct 46.1 H (34.0-46.0) % MCV 98.2 (80.0-100.0) fL MCH 33.4 (25.0-35.0) pg MCHC 34.0 (31.0-37.0) g/dL RDW 12.9 (11.5-15.5) % Plt Count 244 (150-450) k/uL Neutrophils % 60 % Lymphocytes % 31 % Monocytes % 4 % Eosinophils % 4 % Basophils % 1 % Neutrophils # 5.8 (1.3-7.7) k/uL Lymphocytes # 3.0 (1.0-4.8) k/uL Monocytes # 0.3 (0-1.0) k/uL Eosinophils # 0.4 (0-0.7) k/uL Basophils # 0.1 (0-0.2) k/uL PT (9.0-12.0) sec INR (<1.2) APTT (22.0-30.0) sec D-Dimer (<0.60) mg/L FEU Sodium 140 (137-145) mmol/L Potassium 4.2 (3.5-5.1) mmol/L Chloride 110 H (98-107) mmol/L Carbon Dioxide 21 L (22-30) mmol/L Anion Gap 9 mmol/L BUN 8 (7-17) mg/dL Creatinine 0.58 (0.52-1.04) mg/dL Est GFR (CKD-EPI)AfAm >90 (>60 ml/min/1.73 sqM) Est GFR (CKD-EPI)NonAf >90 (>60 ml/min/1.73 sqM) Glucose 95 (74-99) mg/dL Calcium 9.5 (8.4-10.2) mg/dL Magnesium 1.9 (1.6-2.3) mg/dL Total Bilirubin 0.3 (0.2-1.3) mg/dL AST 23 (14-36) U/L ALT 20 (9-52) U/L Alkaline Phosphatase 57 (38-126) U/L Total Creatine Kinase 46 (30-135) U/L CK-MB (CK-2) 0.5 (0.0-2.4) ng/mL CK-MB (CK-2) Rel Index 1.1 Troponin I <0.012 (0.000-0.034) ng/mL NT-Pro-B Natriuret Pep pg/mL Total Protein 6.4 (6.3-8.2) g/dL Albumin 3.7 (3.5-5.0) g/dL Lipase 230 (23-300) U/L 01/06/18 01/06/18 Range/Units 15:32 15:32 WBC (3.8-10.6) k/uL RBC (3.80-5.40) m/uL Hgb (11.4-16.0) gm/dL Hct (34.0-46.0) % MCV (80.0-100.0) fL MCH (25.0-35.0) pg MCHC (31.0-37.0) g/dL RDW (11.5-15.5) % Plt Count (150-450) k/uL Neutrophils % % Lymphocytes % % Monocytes % % Eosinophils % % Basophils % % Neutrophils # (1.3-7.7) k/uL Lymphocytes # (1.0-4.8) k/uL Monocytes # (0-1.0) k/uL Eosinophils # (0-0.7) k/uL Basophils # (0-0.2) k/uL PT 9.5 (9.0-12.0) sec INR 0.9 (<1.2) APTT 21.0 L (22.0-30.0) sec D-Dimer 0.39 (<0.60) mg/L FEU Sodium (137-145) mmol/L Potassium (3.5-5.1) mmol/L Chloride (98-107) mmol/L Carbon Dioxide (22-30) mmol/L Anion Gap mmol/L BUN (7-17) mg/dL Creatinine (0.52-1.04) mg/dL Est GFR (CKD-EPI)AfAm (>60 ml/min/1.73 sqM) Est GFR (CKD-EPI)NonAf (>60 ml/min/1.73 sqM) Glucose (74-99) mg/dL Calcium (8.4-10.2) mg/dL Magnesium (1.6-2.3) mg/dL Total Bilirubin (0.2-1.3) mg/dL AST (14-36) U/L ALT (9-52) U/L Alkaline Phosphatase (38-126) U/L Total Creatine Kinase (30-135) U/L CK-MB (CK-2) (0.0-2.4) ng/mL CK-MB (CK-2) Rel Index Troponin I (0.000-0.034) ng/mL NT-Pro-B Natriuret Pep 51 pg/mL Total Protein (6.3-8.2) g/dL Albumin (3.5-5.0) g/dL Lipase (23-300) U/L Disposition Clinical Impression: Chest pain Disposition: HOME SELF-CARE Condition: Good Instructions: Chest Pain (ED) Is patient prescribed a controlled substance at d/c from ED?: No Referrals: Malena Milner MD [Primary Care Provider] - 1-2 days Time of Disposition: 18:22
[2018-01-06] MEDS ORDERED: KETOROLAC 30 MG/ML 1 ML VIAL IVP STA (17:22)
[2018-01-06 18:32] VITALS: BP 109/75; PULSE 75
== END 2018-01-06 18:36 | disposition home or self-care (01) ==
LOC: EC 15:08
DX: R07.9 Chest pain, unspecified (principal); R00.0 Tachycardia, unspecified; R06.00 Dyspnea, unspecified; M19.90 Unspecified osteoarthritis, unspecified site; G43.909 Migraine, unspecified, not intractable, without status migrainosus; F41.9 Anxiety disorder, unspecified; F17.200 Nicotine dependence, unspecified, uncomplicated; Z79.899 Other long term (current) drug therapy; Z88.5 Allergy status to narcotic agent; Z88.8 Allergy status to other drugs, medicaments and biological substances; Z91.018 Allergy to other foods; Z82.49 Family history of ischemic heart disease and other diseases of the circulatory system
CPT/HCPCS: 36415; 93005; 85379; 83880; 80053; 82550; 82553; 83690; 83735; 84484; 85025; 85610; 85730; 71046; 99285; 96374; 96375; J2270; J1885

== ENCOUNTER 2018-02-14 18:26 | Emergency (ER) | payer OTHER ==
[2018-02-14] MEDS ORDERED: MECLIZINE 12.5 MG TAB PO STA (19:01)
[2018-02-14] MEDS ORDERED: ONDANSETRON 4 MG ODT STARTER PACK 2 TAB BTL PO STA (19:01)
[2018-02-14] MEDS ORDERED: IBUPROFEN 600 MG STARTER PACK 4 TAB BTL PO STA (19:01)
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
--- NOTE | 2018-02-14 19:49 | XR ---
EXAMINATION TYPE: XR hand complete LT DATE OF EXAM: 02/14/2018 COMPARISON: NONE HISTORY: Pain and swelling TECHNIQUE: 3 views FINDINGS: Metacarpals are intact. I see no fracture nor dislocation. There are no erosions. The middl e finger is intact. IMPRESSION: No acute abnormality of the left hand.
[2018-02-14] MEDS ORDERED: BUTALB/APAP/CAFF 50-325-40MG TAB PO STA (20:33)
[2018-02-14 20:42] VITALS: BP 114/67; PULSE 76; RESP 18; TEMP 98
== END 2018-02-14 20:41 | disposition home or self-care (01) ==
LOC: EC 18:26
DX: S06.0X0A Concussion without loss of consciousness, initial encounter (principal); S63.613A Unspecified sprain of left middle finger, initial encounter; G40.909 Epilepsy, unspecified, not intractable, without status epilepticus; F17.200 Nicotine dependence, unspecified, uncomplicated; Z86.73 Personal history of transient ischemic attack (TIA), and cerebral infarction without residual deficits; Z90.49 Acquired absence of other specified parts of digestive tract; Z90.710 Acquired absence of both cervix and uterus; Z98.51 Tubal ligation status; Z79.899 Other long term (current) drug therapy; Z88.5 Allergy status to narcotic agent; Z88.8 Allergy status to other drugs, medicaments and biological substances; Z91.018 Allergy to other foods; Y04.0XXA Assault by unarmed brawl or fight, initial encounter; Y07.9 Unspecified perpetrator of maltreatment and neglect
CPT/HCPCS: 99285; 73130; 70450; S0119

== ENCOUNTER 2018-03-08 22:48 | Emergency (ER) | payer OTHER ==
[2018-03-08] MEDS ORDERED: ASPIRIN 81 MG PO STA (23:06)
[2018-03-08] MEDS ORDERED: SODIUM CHLORIDE 0.9% 1,000 ML IV STA (23:14)
[2018-03-08 23:53] LABS: Basophils # (A) 0.1 k/uL (0-0.2); Basophils % (A) 1 %; Eosinophils # (A) 0.4 k/uL (0-0.7); Eosinophils % (A) 5 %; HCT 42.1 % (34.0-46.0); HGB 14.4 gm/dL (11.4-16.0); Lymphocytes # (A) 3.1 k/uL (1.0-4.8); Lymphocytes % (A) 35 %; MCH 33.1 pg (25.0-35.0); MCHC 34.3 g/dL (31.0-37.0); MCV 96.4 fL (80.0-100.0); Mean Platelet Volume 8.4; Monocytes # (A) 0.5 k/uL (0-1.0); Monocytes % (A) 5 %; Neutrophils # (A) 4.7 k/uL (1.3-7.7); Neutrophils % (A) 53 %; Platelet Count 224 k/uL (150-450); RBC 4.37 m/uL (3.80-5.40); RDW 12.7 % (11.5-15.5); WBC 8.9 k/uL (3.8-10.6)
--- NOTE | 2018-03-08 23:56 | XR ---
EXAMINATION TYPE: XR chest 2V DATE OF EXAM: 03/08/2018 COMPARISON: 01/06/2019 HISTORY: Chest pain TECHNIQUE: Frontal and lateral views of the chest are obtained. FINDINGS: Heart and mediastinum are normal. Lungs are clear. Diaphragm is normal. Bony thorax is int act. Pulmonary vascularity is normal. IMPRESSION: Normal chest. No change.
[2018-03-09 00:09] LABS: ALT 31 U/L (9-52); AST 19 U/L (14-36); Alkaline Phosphatase 68 U/L (38-126); Anion Gap 6 mmol/L; Blood Urea Nitrogen 10 mg/dL (7-17); Calcium 9.5 mg/dL (8.4-10.2); Carbon Dioxide 26 mmol/L (22-30); Chloride 107 mmol/L (98-107); Glucose 90 mg/dL (74-99); Lipase 399 U/L (23-300); Potassium 4.3 mmol/L (3.5-5.1); Sodium 139 mmol/L (137-145); Total Bilirubin 0.2 mg/dL (0.2-1.3); Total Protein 6.8 g/dL (6.3-8.2)
--- NOTE | 2018-03-09 00:16 | CT ---
EXAMINATION TYPE: CT brain wo con DATE OF EXAM: 03/08/2018 COMPARISON: 02/14/2018 HISTORY: Left sided numbness CT DLP: 1040.40 mGycm. Automated Exposure Control for Dose Reduction was Utilized. TECHNIQUE: CT scan of the head is performed without contrast. FINDINGS: Ventricles and sulci appear normal. There is no mass effect nor midline shift. There is no sign of intracranial hemorrhage. The calvarium is intact. IMPRESSION: Normal head CT scan. No change.
[2018-03-09 00:21] LABS: D-Dimer 0.26 mg/L FEU (<0.60); INR 0.9 (<1.2); Partial Thromboplastin Time 22.5 sec (22.0-30.0); Prothrombin Time 9.5 sec (9.0-12.0)
[2018-03-09 00:37] LABS: Creatine Kinase 94 U/L (30-135)
[2018-03-09 00:49] LABS: Creatine Kinase MB 0.3 ng/mL (0.0-2.4); Troponin I <0.012 ng/mL (0.000-0.034)
[2018-03-09] MEDS ORDERED: BUTALB/APAP/CAFF 50-325-40MG TAB PO PRN (01:37)
[2018-03-09] MEDS ORDERED: IBUPROFEN 400 MG TAB PO PRN (01:37)
--- NOTE | 2018-03-09 01:41 | ED ---
Chest Pain HPI - General Chief Complaint: Chest Pain Stated Complaint: Chest pain, arm/leg numbness Time Seen by Provider: 03/08/18 23:05 Source: patient Mode of arrival: wheelchair Limitations: no limitations - History of Present Illness Initial Comments: Josie is a 42-year-old female with extensive past medical history presents to the emergency Department today with multiple complaints. Patient reports she is experiencing tingling in her chest into her left arm and leg. Patient reports that this began a couple of hours ago but is now becoming painful in her arm and leg. Patient also reports tingling and pain in her chest that began at the same time. Patient denies any headache, vision changes or trouble with speech or swallowing since the symptoms began. She reports chest pain with some shortness of breath but no diaphoresis or lightheadedness. Patient reports that the symptoms all began as a tingling or numbness however now she is having aches dream pain in her left arm and leg that did not respond to her home pain medications which prompted her come to the ER for evaluation. - Related Data Home Medications Medication Instructions Recorded Confirmed Cyclobenzaprine [Flexeril] 10 mg PO BID 04/09/17 03/08/18 Butalb/APAP/Caff 50-325-40Mg 1 - 2 tab PO Q4H PRN 11/16/17 03/08/18 [Fioricet 50-325-40] Divalproex [Depakote] 250 mg PO BID 11/16/17 03/08/18 Etodolac [Lodine] 400 mg PO BID 03/08/18 03/08/18 Ibuprofen [Motrin Ib] 400 mg PO Q6H PRN 03/08/18 03/08/18 Sertraline [Zoloft] 50 mg PO DAILY 03/08/18 03/08/18 Allergies Allergy/AdvReac Type Severity Reaction Status Date / Time codeine Allergy Rash/Hives Verified 03/08/18 23:38 diphenhydramine Allergy Rash/Hives Verified 03/08/18 23:38 [From Benadryl] methylprednisolone Allergy Itching Verified 03/08/18 23:38 [From Solu-Medrol] onion Allergy Unknown Verified 03/08/18 23:38 Review of Systems ROS Statement: Those systems with pertinent positive or pertinent negative responses have been documented in the HPI. ROS Other: All systems not noted in ROS Statement are negative. Past Medical History Past Medical History: CVA/TIA, Osteoarthritis (OA), Seizure Disorder Additional Past Medical History / Comment(s): DDD. 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 Delgadillo's Esophagus. carpel tunnel B/L wrist, kidney stones, angina, "black out seizures" History of Any Multi-Drug Resistant Organisms: None Reported Past Surgical History: Appendectomy, Cholecystectomy, Hysterectomy, Tubal Ligation Additional Past Surgical History / Comment(s): PAIN CLINIC PROCEDURES Past Anesthesia/Blood Transfusion Reactions: No Reported Reaction Past Psychological History: Anxiety Smoking Status: Current every day smoker Past Alcohol Use History: None Reported Past Drug Use History: None Reported - Past Family History Mother Family Medical History: Diabetes Mellitus, Hypertension Additional Family Medical History / Comment(s): lupus Father Family Medical History: Unable to Obtain Additional Family Medical History / Comment(s): aunt and uncle mother side with CAD s/p CABG General Exam - General Exam Comments Initial Comments: GENERAL: Patient appears older than stated age, smells of tobacco smoke HENT: Normocephalic, Atraumatic. Neck is soft and supple. No significant lymphadenopathy is noted. Moist mucous membranes. Neck has full range of motion without eliciting any pain. EYES: The sclera were anicteric and conjunctiva were pink and moist. Extraocular movements were intact and pupils were equal round and reactive to light. Eyelids were unremarkable. PULMONARY: Unlabored respirations. Good breath sounds bilaterally. No audible rales or rhonchi CARDIOVASCULAR: There is a regular rate and rhythm without any murmurs gallops or rubs. Strong radial pulses bilaterally ABDOMEN: Soft and nontender with normal bowel sounds. SKIN: Skin is clear with no lesions or rashes and otherwise unremarkable. NEUROLOGIC: Patient is alert and oriented x3. Cranial nerves II through XII are grossly intact. Motor and sensory are also intact. Normal speech, volume and content. Symmetrical smile. NIH-0 MUSCULOSKELETAL: Normal extremities with adequate strength and full range of motion. No lower extremity swelling or edema. No calf tenderness. LYMPHATICS: No significant lymphadenopathy is noted PSYCHIATRIC: Anxious, tearful Limitations: no limitations Limitations: no limitations Course Vital Signs 03/08/18 03/08/18 03/09/18 23:02 23:43 00:25 Temperature 98.2 F Pulse Rate 102 H 90 86 Respiratory 22 18 18 Rate Blood Pressure 132/89 141/86 127/78 O2 Sat by Pulse 98 97 97 Oximetry 03/09/18 03/09/18 02:00 03:00 Temperature 98.3 F Pulse Rate 74 88 Respiratory 20 20 Rate Blood Pressure 120/78 125/65 O2 Sat by Pulse 97 99 Oximetry Chest Pain MDM - MDM The patient was seen and evaluated, history was obtained from the patient and review of medical record Patient presenting with left arm and leg paresthesias and now pain as well as chest pain Labs and imaging were ordered CT head, chest x-ray unremarkable findings Labs with no significant abnormalities As also discussed with the patient, given her medical history, risk factors and complaints of left-sided pierced seizures as well as chest pain I do feel the patient warrants further evaluation, recommended the patient stay for further evaluation by cardiology and neurology. Initially the patient was agreeable and admission orders were placed, however the patient then decided that she would like to be discharged home, I discussed with the patient that at this time I do feel she is too high risk to go home and having paresthesias which could be a possible TIA puts her at higher risk of having a stroke in the next 24-48 hours. I recommended she stay in the hospital for further monitoring and evaluation by neurology. The patient refused. The patient's son asked me to stop her from leaving and force her to stay however I advised him that I do not have the right to do this, he attempted to convince her to stay with the patient states that she just wants to go home at this time. The patient has decided to leave against medical advice because she wants to go home The patient has adequate capacity to make medical decisions. The patient refuses hospital admission and wants to be discharged. The risks have been explained to the patient, including stability of having a stroke or heart attack worsening illness, chronic pain, permanent disability and . The benefits of workup/admission have also been explained, including the availability and proximity of nurses, physicians, monitoring, diagnostic testing , treatment and evaluation by neurology and cardiology The patient was able to understand and state the risks and benefits of hospital admission. The patient the opportunity to ask questions about their medical condition. The patient was treated to the extent that they would allow and knows that they may return for care at any time. Disposition Clinical Impression: Chest pain, Paresthesias, Chronic pain, Tobacco abuse Disposition: Left Against Medical Advice Is patient prescribed a controlled substance at d/c from ED?: No Referrals: Malena Milner MD [Primary Care Provider] - 1-2 days
[2018-03-09] MEDS ORDERED: DIVALPROEX 250 MG TABLET.DR PO SCH (01:45)
[2018-03-09] MEDS ORDERED: CYCLOBENZAPRINE 10 MG TAB PO SCH (01:45)
[2018-03-09 02:16] VITALS: RESP 20
[2018-03-09 03:08] VITALS: BP 125/65; PULSE 88; TEMP 98.3
[2018-03-09] MEDS ORDERED: SERTRALINE 50 MG TAB PO SCH (09:00)
[2018-03-10] MEDS ORDERED: ASPIRIN 325 MG TAB PO SCH (09:00)
== END 2018-03-09 03:03 | disposition left against medical advice (07) ==
LOC: EC 22:48
DX: R07.9 Chest pain, unspecified (principal); R20.2 Paresthesia of skin; G89.29 Other chronic pain; M79.602 Pain in left arm; M79.605 Pain in left leg; Z53.29 Procedure and treatment not carried out because of patient's decision for other reasons; M19.90 Unspecified osteoarthritis, unspecified site; G40.909 Epilepsy, unspecified, not intractable, without status epilepticus; F41.9 Anxiety disorder, unspecified; F17.200 Nicotine dependence, unspecified, uncomplicated; Z86.73 Personal history of transient ischemic attack (TIA), and cerebral infarction without residual deficits; Z79.899 Other long term (current) drug therapy; Z88.5 Allergy status to narcotic agent; Z88.8 Allergy status to other drugs, medicaments and biological substances; Z91.018 Allergy to other foods
CPT/HCPCS: 36415; 70450; 71046; 80053; 82550; 82553; 83690; 83735; 84484; 85025; 85379; 85610; 85730; 93005; 99285

== ENCOUNTER 2018-04-27 11:47 | Emergency (ER) | payer OTHER ==
[2018-04-27 11:55] VITALS: TEMP 97.1
[2018-04-27] MEDS ORDERED: KETOROLAC 30 MG/ML 1 ML VIAL IVP STA (12:18)
[2018-04-27] MEDS ORDERED: SODIUM CHLORIDE 0.9% 500 ML 500 ML IV STA (12:18)
--- NOTE | 2018-04-27 12:28 | ED ---
General Adult HPI - General Chief complaint: ENT Stated complaint: NOSEBLEED Time Seen by Provider: 04/27/18 11:55 Source: EMS, RN notes reviewed, old records reviewed Mode of arrival: EMS Limitations: no limitations - History of Present Illness Initial comments: 42-year-old female patient past month history of chronic migraine headaches, degenerative disc disease, back pain presents to ED with migraine headache. Patient states that this headache today has been ongoing since approximately 8: 00 this morning, has had waning similar migraine headache in the past few days. Patient states that this headache is similar to headaches that she has had in the past, denies worst headache of life, denies rapid onset or thunderclap. Patient states that the headache is located in her occipital region, which is typical for her. Patient follows up with neurologist Dr. Laura and recently had an MRI or her brain which reportedly displayed a small cyst on her maxillary sinus but no other acute pathology. Patient also has secondary complaint that over the past week she has had some minor nosebleeds which resolve after a few minutes. Pt has had similar nosebleeds in the past. Patient denies any recent fall or trauma, loss of consciousness, facial droop or focal deficit. Patient denies any new onset upper and lower extremity weakness, paresthesias. Patient denies any chest pain, shortness of breath, abdominal pain, nausea vomiting diarrhea, fevers or chills. Systemic: Pt denies fatigue, myalgia, fever/chills, rash. Pt denies weakness, night sweats, weight loss. Neuro: Pt denies visual disturbances, syncope or pre-syncope. HEENT: Pt denies ocular discharge or irritation, otalgia, rhinorrhea, pharyngitis or notable lymphadenopathy. Cardiopulmonary: Pt denies chest pain, SOB, heart palpitations, dyspnea on exertion. Abdominal/GI: Pt denies abdominal pain, n/v/d. : Pt denies dysuria, burning w/ urination, frequency/urgency. Denies new onset urinary or bowel incontinence. MSK: Pt denies myalgia, loss of strength or function in extremities. Neuro: Pt denies new onset weakness, paresthesias. - Related Data Home Medications Medication Instructions Recorded Confirmed Cyclobenzaprine [Flexeril] 10 mg PO BID 04/09/17 03/08/18 Butalb/APAP/Caff 50-325-40Mg 1 - 2 tab PO Q4H PRN 11/16/17 03/08/18 [Fioricet 50-325-40] Divalproex [Depakote] 250 mg PO BID 11/16/17 03/08/18 Etodolac [Lodine] 400 mg PO BID 03/08/18 03/08/18 Ibuprofen [Motrin Ib] 400 mg PO Q6H PRN 03/08/18 03/08/18 Sertraline [Zoloft] 50 mg PO DAILY 03/08/18 03/08/18 Previous Rx's Medication Instructions Recorded Ibuprofen [Motrin] 600 mg PO Q6HR PRN #40 day 04/27/18 Oxymetazoline HCl [Afrin 0.05%] 1 spray EA NOSTRIL Q6HR #1 bottle 04/27/18 Allergies Allergy/AdvReac Type Severity Reaction Status Date / Time codeine Allergy Rash/Hives Verified 04/27/18 11:55 diphenhydramine Allergy Rash/Hives Verified 04/27/18 11:55 [From Benadryl] methylprednisolone Allergy Itching Verified 04/27/18 11:55 [From Solu-Medrol] onion Allergy Unknown Verified 04/27/18 11:55 Review of Systems ROS Statement: Those systems with pertinent positive or pertinent negative responses have been documented in the HPI. ROS Other: All systems not noted in ROS Statement are negative. Past Medical History Past Medical History: CVA/TIA, Osteoarthritis (OA), Seizure Disorder Additional Past Medical History / Comment(s): DDD. 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 Delgadillo's Esophagus. carpel tunnel B/L wrist, kidney stones, angina, "black out seizures" History of Any Multi-Drug Resistant Organisms: None Reported Past Surgical History: Appendectomy, Cholecystectomy, Hysterectomy, Tubal Ligation Additional Past Surgical History / Comment(s): PAIN CLINIC PROCEDURES Past Anesthesia/Blood Transfusion Reactions: No Reported Reaction Past Psychological History: Anxiety Smoking Status: Current every day smoker Past Alcohol Use History: None Reported Past Drug Use History: None Reported - Past Family History Mother Family Medical History: Diabetes Mellitus, Hypertension Additional Family Medical History / Comment(s): lupus Father Family Medical History: Unable to Obtain Additional Family Medical History / Comment(s): aunt and uncle mother side with CAD s/p CABG General Exam - General Exam Comments Initial Comments: Constitutional: NAD, AOX3, Pt has pleasant affect. HEENT: NC/AT, trachea midline, neck supple, no lymphadenopathy. Posterior pharynx non erythematous, without exudates. External ears appear normal, without discharge. Mucous membranes moist. Eyes PERRLA, EOM intact. There is no scleral icterus. No pallor noted. Cardiopulmonary: RRR, no murmurs, rubs or gallops, no JVD noted. Lungs CTAB in anterior and posterior fairchild. No peripheral edema. Abdominal exam: Abdomen soft and non-distended. Abdomen non-tender to palpation in all 4 quadrants. Bowel sounds active in LLQ. No hepatosplenomegaly. No ecchymosis Neuro: CN II-XII intact. No nuchal rigidity. No facial droop or focal deficit. Kernig's and Babinski's sign negative. MSK: No posterior calf tenderness bilaterally, homans sign negative bilaterally. Posterior tibialis and radial pulse +2 bilaterally. Sensation intact in upper and lower extremities. Full active ROM in upper and lower extremities, 5/5 stregnth. Limitations: no limitations Course Vital Signs 04/27/18 11:51 Temperature 97.1 F L Pulse Rate 96 Respiratory 18 Rate Blood Pressure 121/99 O2 Sat by Pulse 98 Oximetry Medical Decision Making - Medical Decision Making 42-year-old female patient with past history of migraine headaches was ED with migraine headache. Patient denied thunderclap, rapid onset, worst headache of life, focal deficit, use of blood thinners, trauma or loss of consciousness. Patient vital signs stable, normotensive, afebrile. Physical exam displayed a normal neurologic exam, no nuchal rigidity, ambulatory without difficulty. Full range of motion in upper and lower extremities. Patient had a secondary complaint of some waxing and waning minor nosebleeds has had for the past week, does not have nosebleed now. Recommended patient uses Afrin nasal spray and nasal clamp when these occur. Patient treated in ED with Toradol, reglan and IV fluids which improved headache. Repeat neuro exam wnl. Patient to be discharged with Afrin and will follow up with her primary neurologist tomorrow. Patient to follow up with primary care physician in one to 2 days. Case discussed in depth with Dr. Aponte. Disposition Clinical Impression: Headache Disposition: HOME SELF-CARE Condition: Stable Instructions (If sedation given, give patient instructions): Acute Headache (ED ) Additional Instructions: Patient to adhere to previously discussed treatment plan and will take medication(s) as directed. Patient to follow up with PCP in 1-2 days. Patient to return to ED if symptoms do not improve. Prescriptions: Ibuprofen [Motrin] 600 mg PO Q6HR PRN #40 day PRN Reason: Pain Oxymetazoline HCl [Afrin 0.05%] 1 spray EA NOSTRIL Q6HR #1 bottle Is patient prescribed a controlled substance at d/c from ED?: No Referrals: Malena Milner MD [Primary Care Provider] - 1-2 days Talon Laura MD [Medical Doctor] - 1-2 days Time of Disposition: 12:28
[2018-04-27] MEDS ORDERED: METOCLOPRAMIDE 5 MG/ML 2 ML VIAL IVP STA (13:01)
--- NOTE | 2018-04-27 13:51 | ED ---
Medical Decision Making - Medical Decision Making Patient to return to ED if new signs or symptoms develop or if condition worsens in any way, patient verbalizes understanding. Disposition Clinical Impression: Headache Disposition: HOME SELF-CARE Condition: Stable Instructions (If sedation given, give patient instructions): Acute Headache (ED ) Additional Instructions: Patient to adhere to previously discussed treatment plan and will take medication(s) as directed. Patient to follow up with PCP in 1-2 days. Patient to return to ED if symptoms do not improve. Prescriptions: Ibuprofen [Motrin] 600 mg PO Q6HR PRN #40 day PRN Reason: Pain Oxymetazoline HCl [Afrin 0.05%] 1 spray EA NOSTRIL Q6HR #1 bottle Is patient prescribed a controlled substance at d/c from ED?: No Referrals: Malena Milner MD [Primary Care Provider] - 1-2 days Talon Laura MD [Medical Doctor] - 1-2 days
[2018-04-27 14:13] VITALS: BP 107/74; PULSE 81; RESP 16
== END 2018-04-27 14:12 | disposition home or self-care (01) ==
LOC: EC 11:47
DX: G43.909 Migraine, unspecified, not intractable, without status migrainosus (principal); R04.0 Epistaxis; G40.909 Epilepsy, unspecified, not intractable, without status epilepticus; M19.90 Unspecified osteoarthritis, unspecified site; F41.9 Anxiety disorder, unspecified; F17.200 Nicotine dependence, unspecified, uncomplicated; Z88.5 Allergy status to narcotic agent; Z88.8 Allergy status to other drugs, medicaments and biological substances; Z91.018 Allergy to other foods; Z79.1 Long term (current) use of non-steroidal anti-inflammatories (NSAID); Z79.899 Other long term (current) drug therapy
CPT/HCPCS: 99284; 96374; 96375; 96361 ×2; J2765; J1885

== ENCOUNTER 2018-06-02 15:32 | Emergency (ER) | payer OTHER ==
[2018-06-02] MEDS ORDERED: SODIUM CHLORIDE 0.9% 500 ML 500 ML IV STA (15:50)
--- NOTE | 2018-06-02 15:56 | ED ---
General Adult HPI - General Chief complaint: Neuro Symptoms/Deficit Stated complaint: Lt sided numbess Time Seen by Provider: 06/02/18 15:35 Source: patient, RN notes reviewed Mode of arrival: ambulatory Limitations: no limitations - History of Present Illness Initial comments: This is a 42-year-old female who presents emergency Department for planning of left facial tingling as well as left arm and left leg tingling. Patient has not lost any function at this point but states it feels as though her whole left side is going to sleep. Patient denies any visual disturbance. Patient denies any headache. Patient denies any focal motor deficit. Patient denies any slurred speech. Patient denies chest pain difficulty breathing or shortness of breath per patient denies abdominal pain patient denies nausea vomiting diarrhea. Patient denies any recent fever chills or cough. Patient states she has had 2 TIAs in the past. - Related Data Home Medications Medication Instructions Recorded Confirmed Cyclobenzaprine [Flexeril] 10 mg PO BID 04/09/17 06/02/18 Butalb/APAP/Caff 50-325-40Mg 1 - 2 tab PO Q4H PRN 11/16/17 06/02/18 [Fioricet 50-325-40] Divalproex [Depakote] 250 mg PO BID 11/16/17 06/02/18 Etodolac [Lodine] 400 mg PO BID 03/08/18 06/02/18 Sertraline [Zoloft] 50 mg PO DAILY 03/08/18 06/02/18 Allergies Allergy/AdvReac Type Severity Reaction Status Date / Time codeine Allergy Rash/Hives Verified 06/02/18 15:55 diphenhydramine Allergy Rash/Hives Verified 06/02/18 15:55 [From Benadryl] methylprednisolone Allergy Itching Verified 06/02/18 15:55 [From Solu-Medrol] onion Allergy Unknown Verified 06/02/18 15:55 Review of Systems ROS Statement: Those systems with pertinent positive or pertinent negative responses have been documented in the HPI. ROS Other: All systems not noted in ROS Statement are negative. Past Medical History Past Medical History: CVA/TIA, Osteoarthritis (OA), Seizure Disorder Additional Past Medical History / Comment(s): DDD. 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 Delgadillo's Esophagus. carpel tunnel B/L wrist, kidney stones, angina, "black out seizures" History of Any Multi-Drug Resistant Organisms: None Reported Past Surgical History: Appendectomy, Cholecystectomy, Hysterectomy, Tubal Ligation Additional Past Surgical History / Comment(s): PAIN CLINIC PROCEDURES Past Anesthesia/Blood Transfusion Reactions: No Reported Reaction Past Psychological History: Anxiety Smoking Status: Current every day smoker Past Alcohol Use History: None Reported Past Drug Use History: None Reported - Past Family History Mother Family Medical History: Diabetes Mellitus, Hypertension Additional Family Medical History / Comment(s): lupus Father Family Medical History: Unable to Obtain Additional Family Medical History / Comment(s): aunt and uncle mother side with CAD s/p CABG General Exam - General Exam Comments Initial Comments: GENERAL: Patient is well-developed and well-nourished. Patient is nontoxic and well- hydrated and is in no acute distress. ENT: Neck is soft and supple. No significant lymphadenopathy is noted. Oropharynx is clear. Moist mucous membranes. Neck has full range of motion without eliciting any pain. EYES: The sclera were anicteric and conjunctiva were pink and moist. Extraocular movements were intact and pupils were equal round and reactive to light. Eyelids were unremarkable. PULMONARY: Unlabored respirations. Good breath sounds bilaterally. No audible rales rhonchi or wheezing was noted. CARDIOVASCULAR: There is a regular rate and rhythm without any murmurs gallops or rubs. ABDOMEN: Soft and nontender with normal bowel sounds. No palpable organomegaly was noted. There is no palpable pulsatile mass. SKIN: Skin is clear with no lesions or rashes and otherwise unremarkable. NEUROLOGIC: Patient is alert and oriented x3. Cranial nerves II through XII are grossly intact. Patient has normal strength in adjunct instructor bilaterally normal dorsal and plantar flexion bilaterally. Patient states she can feel me touch her on the face arm and leg and foot but it feels tingly and not normal.. Normal speech, volume and content. Symmetrical smile. Cerebellar testing finger to nose is normal. MUSCULOSKELETAL: Normal extremities with adequate strength and full range of motion. No lower e xtremity swelling or edema. No calf tenderness. LYMPHATICS: No significant lymphadenopathy is noted PSYCHIATRIC: Normal psychiatric evaluation. Limitations: no limitations Course Vital Signs 06/02/18 06/02/18 06/02/18 15:33 15:50 16:05 Temperature 98.2 F Pulse Rate 109 H 93 98 Respiratory 18 18 18 Rate Blood Pressure 158/89 136/90 143/92 O2 Sat by Pulse 98 99 99 Oximetry Medical Decision Making - Medical Decision Making EKG shows normal sinus rhythm at 94 bpm CO interval 224 QRS is 72 QT interval 346 QTC is 432. Patient's EKG shows no ST segment elevation or depression or T wave abnormalities are noted. CT shows no acute abnormality. Neuro interventional is was contacted he did not believe any intervention was necessary TPA or otherwise. He did recommend neurology consult. Patient requested [facility]. Patient will be transferred to [facility]. Patient had another episode of chest pain so he didn't EKG shows normal sinus rhythm at 81 bpm CO interval is on a 34 tresses 72 QT interval 366 QTC 425 per patient's EKG shows no ST segment elevation or depression. - Lab Data Result diagrams: 06/02/18 16:00 06/02/18 16:00 Lab Results 06/02/18 06/02/18 06/02/18 Range/Units 16:00 16:00 16:00 WBC 9.5 (3.8-10.6) k/uL RBC 4.59 (3.80-5.40) m/uL Hgb 15.0 (11.4-16.0) gm/dL Hct 44.9 (34.0-46.0) % MCV 97.9 (80.0-100.0) fL MCH 32.8 (25.0-35.0) pg MCHC 33.5 (31.0-37.0) g/dL RDW 13.1 (11.5-15.5) % Plt Count 243 (150-450) k/uL Neutrophils % 61 % Lymphocytes % 28 % Monocytes % 4 % Eosinophils % 5 % Basophils % 1 % Neutrophils # 5.8 (1.3-7.7) k/uL Lymphocytes # 2.7 (1.0-4.8) k/uL Monocytes # 0.4 (0-1.0) k/uL Eosinophils # 0.5 (0-0.7) k/uL Basophils # 0.1 (0-0.2) k/uL PT 9.8 (9.0-12.0) sec INR 0.9 (<1.2) APTT 23.1 (22.0-30.0) sec Sodium 140 (137-145) mmol/L Potassium 4.5 (3.5-5.1) mmol/L Chloride 106 (98-107) mmol/L Carbon Dioxide 25 (22-30) mmol/L Anion Gap 9 mmol/L BUN 10 (7-17) mg/dL Creatinine 0.62 (0.52-1.04) mg/dL Est GFR (CKD-EPI)AfAm >90 (>60 ml/min/1.73 sqM) Est GFR (CKD-EPI)NonAf >90 (>60 ml/min/1.73 sqM) Glucose 88 (74-99) mg/dL Calcium 10.0 (8.4-10.2) mg/dL Total Bilirubin 0.4 (0.2-1.3) mg/dL AST 21 (14-36) U/L ALT 25 (9-52) U/L Alkaline Phosphatase 67 (38-126) U/L Troponin I (0.000-0.034) ng/mL Total Protein 7.8 (6.3-8.2) g/dL Albumin 4.5 (3.5-5.0) g/dL 06/02/18 Range/Units 16:00 WBC (3.8-10.6) k/uL RBC (3.80-5.40) m/uL Hgb (11.4-16.0) gm/dL Hct (34.0-46.0) % MCV (80.0-100.0) fL MCH (25.0-35.0) pg MCHC (31.0-37.0) g/dL RDW (11.5-15.5) % Plt Count (150-450) k/uL Neutrophils % % Lymphocytes % % Monocytes % % Eosinophils % % Basophils % % Neutrophils # (1.3-7.7) k/uL Lymphocytes # (1.0-4.8) k/uL Monocytes # (0-1.0) k/uL Eosinophils # (0-0.7) k/uL Basophils # (0-0.2) k/uL PT (9.0-12.0) sec INR (<1.2) APTT (22.0-30.0) sec Sodium (137-145) mmol/L Potassium (3.5-5.1) mmol/L Chloride (98-107) mmol/L Carbon Dioxide (22-30) mmol/L Anion Gap mmol/L BUN (7-17) mg/dL Creatinine (0.52-1.04) mg/dL Est GFR (CKD-EPI)AfAm (>60 ml/min/1.73 sqM) Est GFR (CKD-EPI)NonAf (>60 ml/min/1.73 sqM) Glucose (74-99) mg/dL Calcium (8.4-10.2) mg/dL Total Bilirubin (0.2-1.3) mg/dL AST (14-36) U/L ALT (9-52) U/L Alkaline Phosphatase (38-126) U/L Troponin I <0.012 (0.000-0.034) ng/mL Total Protein (6.3-8.2) g/dL Albumin (3.5-5.0) g/dL Critical Care Time Critical Care Time: Yes Total Critical Care Time: 35 Disposition Clinical Impression: Cerebrovascular accident Disposition: OTHER INSTITUTION NOT DEFINED Referrals: Malena Milner MD [Primary Care Provider] - 1-2 days Time of Disposition: 17:06 - Out of Hospital Transfer - Req. Specs Out of Hospital Transfer - Requested Specifics: Other Emergency Center ([facility])
[2018-06-02 16:13] LABS: Basophils # (A) 0.1 k/uL (0-0.2); Basophils % (A) 1 %; Eosinophils # (A) 0.5 k/uL (0-0.7); Eosinophils % (A) 5 %; HCT 44.9 % (34.0-46.0); Lymphocytes # (A) 2.7 k/uL (1.0-4.8); Lymphocytes % (A) 28 %; MCH 32.8 pg (25.0-35.0); MCHC 33.5 g/dL (31.0-37.0); MCV 97.9 fL (80.0-100.0); Mean Platelet Volume 8.3; Monocytes # (A) 0.4 k/uL (0-1.0); Monocytes % (A) 4 %; Neutrophils # (A) 5.8 k/uL (1.3-7.7); Neutrophils % (A) 61 %; Platelet Count 243 k/uL (150-450); RBC 4.59 m/uL (3.80-5.40); RDW 13.1 % (11.5-15.5); WBC 9.5 k/uL (3.8-10.6)
[2018-06-02 16:25] LABS: ALT 25 U/L (9-52); AST 21 U/L (14-36); Albumin 4.5 g/dL (3.5-5.0); Alkaline Phosphatase 67 U/L (38-126); Anion Gap 9 mmol/L; Blood Urea Nitrogen 10 mg/dL (7-17); Carbon Dioxide 25 mmol/L (22-30); Chloride 106 mmol/L (98-107); Glucose 88 mg/dL (74-99); Potassium 4.5 mmol/L (3.5-5.1); Sodium 140 mmol/L (137-145); Total Bilirubin 0.4 mg/dL (0.2-1.3); Total Protein 7.8 g/dL (6.3-8.2)
--- NOTE | 2018-06-02 16:27 | CT ---
EXAMINATION TYPE: CT brain wo con for TPA DATE OF EXAM: 06/02/2018 COMPARISON: Prior head CT 03/08/2018 HISTORY: Left sided weakness CT DLP: 1036.4 mGycm Automated exposure control for dose reduction was used. FINDINGS: There is no acute intracranial hemorrhage, mass effect, or midline shift identified. The ventricles and sulci are within normal limits in size. The globes are intact and the visualized sinuses are rem arkable for inflammatory change in the right maxillary sinus greater than left. IMPRESSION: No acute intracranial hemorrhage, mass effect, or midline shift is seen. Bilateral maxillary sinusiti s
[2018-06-02 16:33] LABS: INR 0.9 (<1.2); Prothrombin Time 9.8 sec (9.0-12.0)
[2018-06-02 16:34] LABS: Partial Thromboplastin Time 23.1 sec (22.0-30.0)
--- NOTE | 2018-06-02 17:31 | XR ---
EXAMINATION TYPE: XR chest 2V DATE OF EXAM: 06/02/2018 COMPARISON: Prior chest x-ray 03/08/2018 HISTORY: Altered mental status TECHNIQUE: Frontal and lateral views of the chest are obtained. FINDINGS: There is no focal air space opacity, pleural effusion, or pneumothorax seen. The cardiac silhouette size is within normal limits. The osseous structures are intact. There are overlying car diac leads. IMPRESSION: No acute cardiopulmonary process.
[2018-06-02 17:51] VITALS: BP 135/90; PULSE 83; RESP 15; TEMP 98.1
== END 2018-06-02 17:59 | disposition other institution (70) ==
LOC: EC 15:32
DX: I63.9 Cerebral infarction, unspecified (principal); R29.701 NIHSS score 1; M19.90 Unspecified osteoarthritis, unspecified site; G40.909 Epilepsy, unspecified, not intractable, without status epilepticus; G43.909 Migraine, unspecified, not intractable, without status migrainosus; F41.9 Anxiety disorder, unspecified; F17.200 Nicotine dependence, unspecified, uncomplicated; Z86.73 Personal history of transient ischemic attack (TIA), and cerebral infarction without residual deficits; Z79.1 Long term (current) use of non-steroidal anti-inflammatories (NSAID); Z79.899 Other long term (current) drug therapy; Z88.5 Allergy status to narcotic agent; Z88.8 Allergy status to other drugs, medicaments and biological substances; Z91.018 Allergy to other foods
CPT/HCPCS: 36415; 70450; 71046; 80053; 84484; 85025; 85610; 85730; 93005; 99291

== ENCOUNTER 2018-09-06 11:14 | Emergency (ER) | payer OTHER ==
--- NOTE | 2018-09-06 11:45 | ED ---
General Adult HPI - General Chief complaint: Extremity Injury, Lower Stated complaint: FALL, RT FOOT INJURY Time Seen by Provider: 09/06/18 11:33 Source: patient Mode of arrival: ambulatory Limitations: no limitations - History of Present Illness Initial comments: Dictation was produced using [employer] dictation software. please excuse any grammatical, word or spelling errors. Chief Complaint: 42-year-old female presents with right ankle pain after inversion injury. History of Present Illness: She is a 42-year-old female she was walking around in her garage. Patient has history of hip arthritis. She is supposed to be ambulatory with a cane. She was walking when she rolled her right ankle splint 10 days ago. 2 days ago patient noted some bruising to her right ankle. She has been experiencing significant pain ever since the inciting event. Patient has been limping ever since last 10 days. She feels as though her pain is not improving. She's been taking qekk-fje-[id number] pain medications. Patient reports that her pain is worse over the anterolateral right foot. The ROS documented in this emergency department record has been reviewed and confirmed by me. Those systems with pertinent positive or negative responses have been documented in the HPI. All other systems are other negative and/or noncontributory. PHYSICAL EXAM: General Impression: Alert and oriented x3, not in acute distress HEENT: Normocephalic atraumatic, extra-ocular movements intact, pupils equal and reactive to light bilaterally, mucous membranes moist. Cardiovascular: Heart regular rate and rhythm, S1&S2 audible, no murmurs, rubs or gallops Chest: Lungs clear to auscultation bilaterally, no rhonchi, no wheeze, no rales Abdomen: Bowel sounds present, abdomen soft, non-tender, non-distended, no organomegaly Musculoskeletal: Pulses present and equal in all extremities, no peripheral edema Right foot: Mild swelling and ecchymoses around the anterior lateral foot. Ecchymoses mostly concentrated around the lateral malleolus inferiorly. There is diffuse tenderness to the anterior foot however most painful over the AT FL Motor: no focal deficits noted Neurological: CN II-XII grossly intact, no focal motor or sensory deficits noted Skin: Intact with no visualized rashes Psych: Normal affect and mood ED course: 42-year-old female presents with foot pain after inversion injury 10 days ago. Sons upon arrival are within acceptable limits X-rays obtained showing no acute fractures or dislocations. At this point phys ical exam not consistent with Lisfranc injury. Foot was flexed. With grasping metatarsal heads with minimal pain. Patient able to bear weight. Patient however complains of significant pain. Patient placed in a OCL splint for comfort. She has crutches at home that she can use. Patient given referral to outpatient orthopedic surgery for outpatient management of ankle injury. This point clinical presentation is likely secondary to an ankle sprain versus ATFL rupture. Patient told to take [id number] analgesics for pain. Counseling on rice therapy. Clear for discharge. - Related Data Home Medications Medication Instructions Recorded Confirmed Cyclobenzaprine [Flexeril] 10 mg PO BID 04/09/17 09/06/18 Butalb/APAP/Caff 50-325-40Mg 1 - 2 tab PO Q4H PRN 11/16/17 09/06/18 [Fioricet 50-325-40] Divalproex [Depakote] 250 mg PO BID 11/16/17 09/06/18 Etodolac [Lodine] 400 mg PO BID 03/08/18 09/06/18 Atorvastatin [Lipitor] 80 mg PO HS 09/06/18 09/06/18 DULoxetine HCL [Cymbalta] 60 mg PO DAILY 09/06/18 09/06/18 Allergies Allergy/AdvReac Type Severity Reaction Status Date / Time codeine Allergy Rash/Hives Verified 09/06/18 11:28 diphenhydramine Allergy Rash/Hives Verified 09/06/18 11:28 [From Benadryl] methylprednisolone Allergy Itching Verified 09/06/18 11:28 [From Solu-Medrol] onion Allergy Unknown Verified 09/06/18 11:28 Review of Systems ROS Statement: Those systems with pertinent positive or pertinent negative responses have been documented in the HPI. ROS Other: All systems not noted in ROS Statement are negative. Past Medical History Past Medical History: CVA/TIA, Osteoarthritis (OA), Seizure Disorder Additional Past Medical History / Comment(s): DDD. 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 Delgadillo's Esophagus. carpel tunnel B/L wrist, kidney stones, angina, "black out seizures" History of Any Multi-Drug Resistant Organisms: None Reported Past Surgical History: Appendectomy, Cholecystectomy, Hysterectomy, Tubal Ligation Additional Past Surgical History / Comment(s): PAIN CLINIC PROCEDURES Past Anesthesia/Blood Transfusion Reactions: No Reported Reaction Past Psychological History: Anxiety Smoking Status: Current every day smoker Past Alcohol Use History: None Reported Past Drug Use History: None Reported - Past Family History Mother Family Medical History: Diabetes Mellitus, Hypertension Additional Family Medical History / Comment(s): lupus Father Family Medical History: Unable to Obtain Additional Family Medical History / Comment(s): aunt and uncle mother side with CAD s/p CABG General Exam Limitations: no limitations Course Vital Signs 09/06/18 11:26 Temperature 98.7 F Pulse Rate 99 Respiratory 20 Rate Blood Pressure 111/71 O2 Sat by Pulse 97 Oximetry Disposition Clinical Impression: Ankle sprain Disposition: HOME SELF-CARE Condition: Good Instructions (If sedation given, give patient instructions): Ankle Sprain (ED) Is patient prescribed a controlled substance at d/c from ED?: No Referrals: Tru Najera MD [Medical Doctor] - 1-2 days Time of Disposition: 12:56
--- NOTE | 2018-09-06 12:18 | XR ---
Right foot HISTORY: Right foot pain, trauma 3 views of the right foot Bone mineralization, joint spaces and alignment are maintained. IMPRESSION: No fracture or dislocation.
[2018-09-06 13:06] VITALS: BP 109/78; PULSE 89; RESP 18; TEMP 98
== END 2018-09-06 13:06 | disposition home or self-care (01) ==
LOC: EC 11:14
DX: S93.401A Sprain of unspecified ligament of right ankle, initial encounter (principal); M19.90 Unspecified osteoarthritis, unspecified site; G40.909 Epilepsy, unspecified, not intractable, without status epilepticus; F41.9 Anxiety disorder, unspecified; F17.200 Nicotine dependence, unspecified, uncomplicated; Z86.73 Personal history of transient ischemic attack (TIA), and cerebral infarction without residual deficits; Z79.899 Other long term (current) drug therapy; Z88.5 Allergy status to narcotic agent; Z88.8 Allergy status to other drugs, medicaments and biological substances; Z91.018 Allergy to other foods; W01.0XXA Fall on same level from slipping, tripping and stumbling without subsequent striking against object, initial encounter; Y93.01 Activity, walking, marching and hiking; Y92.89 Other specified places as the place of occurrence of the external cause
CPT/HCPCS: 29515; 99283

== ENCOUNTER 2018-09-14 18:29 | Emergency (ER) | payer OTHER ==
[2018-09-14 19:02] VITALS: RESP 18
[2018-09-14] MEDS ORDERED: SODIUM CHLORIDE 0.9% 1,000 ML IV STA (19:06)
[2018-09-14] MEDS ORDERED: KETOROLAC 30 MG/ML 1 ML VIAL IVP STA (19:06)
[2018-09-14] MEDS ORDERED: ONDANSETRON 4 MG/2 ML VIAL IVP STA (19:06)
[2018-09-14 19:21] LABS: Basophils # (A) 0.1 k/uL (0-0.2); Basophils % (A) 1 %; Eosinophils # (A) 0.3 k/uL (0-0.7); Eosinophils % (A) 2 %; HCT 51.1 % (34.0-46.0); HGB 17.2 gm/dL (11.4-16.0); Lymphocytes % (A) 22 %; MCH 32.4 pg (25.0-35.0); MCHC 33.8 g/dL (31.0-37.0); Mean Platelet Volume 9.4; Monocytes # (A) 0.6 k/uL (0-1.0); Monocytes % (A) 5 %; Neutrophils # (A) 9.3 k/uL (1.3-7.7); Neutrophils % (A) 69 %; Platelet Count 219 k/uL (150-450); RBC 5.32 m/uL (3.80-5.40); RDW 14.1 % (11.5-15.5); WBC 13.5 k/uL (3.8-10.6)
[2018-09-14 19:29] LABS: ALT 24 U/L (9-52); AST 29 U/L (14-36); African American GFR (CKD) >90 (>60 ml/min/1.73 sqM); Albumin 3.5 g/dL (3.5-5.0); Alkaline Phosphatase 44 U/L (38-126); Anion Gap 8 mmol/L; Blood Urea Nitrogen 8 mg/dL (7-17); Calcium 8.6 mg/dL (8.4-10.2); Carbon Dioxide 22 mmol/L (22-30); Chloride 107 mmol/L (98-107); Glucose 106 mg/dL (74-99); Magnesium 1.8 mg/dL (1.6-2.3); Sodium 137 mmol/L (137-145); Total Bilirubin 0.5 mg/dL (0.2-1.3); Total Protein 5.8 g/dL (6.3-8.2)
[2018-09-14 19:33] LABS: Potassium 4.6 mmol/L (3.5-5.1)
[2018-09-14 19:37] LABS: INR 0.9 (<1.2); Prothrombin Time 9.8 sec (9.0-12.0)
[2018-09-14 19:41] LABS: Partial Thromboplastin Time 21.3 sec (22.0-30.0)
--- NOTE | 2018-09-14 19:43 | XR ---
EXAMINATION TYPE: XR chest 2V DATE OF EXAM: 09/14/2018 COMPARISON: NONE HISTORY: Syncope TECHNIQUE: Frontal and lateral views of the chest are obtained. FINDINGS: Heart and mediastinum are normal. Lungs are clear. Diaphragm is normal. Bony thorax appear s normal. There are chest leads. IMPRESSION: Normal chest. No change.
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
[2018-09-14] MEDS ORDERED: HYDROmorphone 1 MG/ML 1 ML SYRINGE IVP STA (20:25)
[2018-09-14 20:41] LABS: Appearance,Urine Clear (Clear); Bilirubin,Urine 2+ (Negative); Blood,Urine Negative (Negative); Color,Urine Yellow; Glucose,Urine (UA) Negative (Negative); Ketones,Urine 1+ (Negative); Leukocyte Esterase,Urine Negative (Negative); Nitrite,Urine Negative (Negative); PH, Urine 5.5 (5.0-8.0); Protein,Urine Trace (Negative); Specific Gravity,Urine 1.022 (1.001-1.035)
[2018-09-14] MEDS ORDERED: METOCLOPRAMIDE 5 MG/ML 2 ML VIAL IVP STA (21:41)
[2018-09-14] MEDS ORDERED: DICYCLOMINE 10 MG/ML 2 ML AMP IM STA (21:41)
[2018-09-14 21:42] VITALS: BP 167/114; PULSE 79; TEMP 97.9
== END 2018-09-14 22:40 | disposition home or self-care (01) ==
LOC: EC 18:29
DX: R55 Syncope and collapse (principal); R51 Headache; R53.1 Weakness; M19.90 Unspecified osteoarthritis, unspecified site; G40.909 Epilepsy, unspecified, not intractable, without status epilepticus; F41.9 Anxiety disorder, unspecified; F17.200 Nicotine dependence, unspecified, uncomplicated; Z86.69 Personal history of other diseases of the nervous system and sense organs; Z86.73 Personal history of transient ischemic attack (TIA), and cerebral infarction without residual deficits; Z79.1 Long term (current) use of non-steroidal anti-inflammatories (NSAID); Z79.899 Other long term (current) drug therapy; Z88.5 Allergy status to narcotic agent; Z88.8 Allergy status to other drugs, medicaments and biological substances; Z91.018 Allergy to other foods
CPT/HCPCS: 36415; 93005; 80053; 83735; 84484; 85025; 85610; 85730; 81003; 71046; 99285; 96374; 96375 ×3; 96361; 96372; J0500; J2765; J2405; J1885; J1170

== ENCOUNTER 2018-11-03 17:34 | Emergency (ER) | payer OTHER ==
[2018-11-03] MEDS ORDERED: KETOROLAC 30 MG/ML 1 ML VIAL IVP STA (18:16)
[2018-11-03] MEDS ORDERED: SODIUM CHLORIDE 0.9% 1,000 ML IV ONE (18:16)
[2018-11-03] MEDS ORDERED: BENZONATATE 100 MG CAP PO STA (18:16)
[2018-11-03] MEDS ORDERED: IPRATROPIUM-ALBUTEROL 3 ML NEB INHALATION STA (18:16)
--- NOTE | 2018-11-03 18:19 | ED ---
Female Urogenital HPI - General Chief complaint: Urogenital Stated complaint: Kindey stones Time Seen by Provider: 11/03/18 18:03 Source: patient Mode of arrival: ambulatory Limitations: no limitations - History of Present Illness Initial comments: 42-year-old female presenting with right-sided flank pain and cough. She states that the cough has been present for 2 weeks, is nonproductive, and is unaccompanied with fevers or chills. She does state that she is a smoker but isn't smoking less recently. She denies a history of COPD or asthma. No hist ory of DVT/PE, recent surgery, active cancer, current hormone use. Patient states this morning she began up right-sided sharp stabbing abdominal pain that radiates to her right lower quadrant. It's last night she had an episode of hematuria. This is consistent with her previous history of kidney stones. She denies any lithotripsy or stent placement in the past. Denies any dysuria or frequency. - Related Data Home Medications Medication Instructions Recorded Confirmed Cyclobenzaprine [Flexeril] 10 mg PO BID 04/09/17 11/03/18 Butalb/APAP/Caff 50-325-40Mg 1 - 2 tab PO Q4H PRN 11/16/17 11/03/18 [Fioricet 50-325-40] Divalproex [Depakote] 250 mg PO BID 11/16/17 11/03/18 Etodolac [Lodine] 400 mg PO BID 03/08/18 11/03/18 DULoxetine HCL [Cymbalta] 60 mg PO DAILY 11/03/18 11/03/18 Previous Rx's Medication Instructions Recorded Albuterol Inhaler [Ventolin Hfa 1 - 2 puff INHALATION RT-Q6H PRN 11/03/18 Inhaler] #1 inhaler Benzonatate [Tessalon Perles] 200 mg PO Q8HR PRN #30 capsule 11/03/18 predniSONE 50 mg PO DAILY 5 Days #5 tab 11/03/18 Allergies Allergy/AdvReac Type Severity Reaction Status Date / Time codeine Allergy Rash/Hives Verified 11/03/18 18:57 diphenhydramine Allergy Rash/Hives Verified 11/03/18 18:57 [From Benadryl] methylprednisolone Allergy Itching Verified 11/03/18 18:57 [From Solu-Medrol] onion Allergy Unknown Verified 11/03/18 18:57 Review of Systems ROS Statement: Those systems with pertinent positive or pertinent negative responses have been documented in the HPI. Review of Systems Constitutional: Denies fever, chills Eyes: Denies change in vision, Denies pain Ears, nose, mouth, throat: Denies headaches, Denies sore throat Cardiovascular: Denies chest pain. Denies palpitations Respiratory: Denies shortness of breath, Positive cough Gastrointestinal: Positive abdominal pain. Denies nausea, vomiting, diarrhea. Genitourinary: Denies hematuria, Denies infections Musculoskeletal: Denies pain, Denies swelling Integumentary: Denies rash Neurological: Denies headache, focal weakness, focal numbness Psychiatric: Denies anxiety, Denies depression Hematologic/Lymphatic: Denies easy bleeding or bruising ROS Other: All systems not noted in ROS Statement are negative. Past Medical History Past Medical History: CVA/TIA, Osteoarthritis (OA), Seizure Disorder Additional Past Medical History / Comment(s): DDD. 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 Delgadillo's Esophagus. carpel tunnel B/L wrist, kidney stones, angina, "black out seizures" History of Any Multi-Drug Resistant Organisms: None Reported Past Surgical History: Appendectomy, Cholecystectomy, Hysterectomy, Tubal Ligation Additional Past Surgical History / Comment(s): PAIN CLINIC PROCEDURES Past Anesthesia/Blood Transfusion Reactions: No Reported Reaction Past Psychological History: Anxiety Smoking Status: Current every day smoker Past Alcohol Use History: None Reported Past Drug Use History: None Reported - Past Family History Mother Family Medical History: Diabetes Mellitus, Hypertension Additional Family Medical History / Comment(s): lupus Father Family Medical History: Unable to Obtain Additional Family Medical History / Comment(s): aunt and uncle mother side with CAD s/p CABG General Exam - General Exam Comments Initial Comments: General: Awake, alert, No acute Distress HENT: Normocephalic. Atraumatic Eyes: PERRL. EOMI. No scleral icterus. No injected conjunctiva Neck: Full ROM Chest/Lungs: Clear to auscultation bilaterally. No wheezing, rhonchi, or rales. Harsh cough Cardiac: Regular rate, rhythm. No murmurs or rubs Abdomen/GI: Soft, nontender, nondistended. No rebound, guarding, or rigidity. Right CVA tenderness Musculoskeletal: Full ROM Skin: Warm, dry, intact Neurologic: A/Ox3, no weakness, no sensory deficit, no abnormal gait, no coordination deficit Limitations: no limitations Course Vital Signs 11/03/18 11/03/18 11/03/18 17:59 18:48 18:54 Temperature 98.2 F Pulse Rate 111 H 108 H 108 H Respiratory 18 Rate Blood Pressure 145/86 O2 Sat by Pulse 97 Oximetry 11/03/18 11/03/18 20:15 21:54 Temperature 98 F 98 F Pulse Rate 84 87 Respiratory 18 16 Rate Blood Pressure 105/63 96/71 O2 Sat by Pulse 97 96 Oximetry Medical Decision Making - Medical Decision Making 42-year-old female presenting with abdominal pain shortness of breath. Patient's laboratory workup was negative for acute process. She was negative as well. Symptoms improved while in the department she was able tolerate by mouth. Her flank pain resolved and her UA was negative for infection. She was able take prednisone and states that she does not have an ALLERGY to that. She was started on bronchitis outpatient treatment.No further emergent workup indicated. The patient was given return to ED instructions. They were instructed to follow up with their primary care provider. Stable for discharge at this time. - Lab Data Result diagrams: 11/03/18 19:02 11/03/18 19:02 Lab Results 11/03/18 11/03/18 11/03/18 Range/Units 18:35 19:02 19:02 WBC 13.3 H (3.8-10.6) k/uL RBC 4.39 (3.80-5.40) m/uL Hgb 14.3 (11.4-16.0) gm/dL Hct 43.2 (34.0-46.0) % MCV 98.3 (80.0-100.0) fL MCH 32.6 (25.0-35.0) pg MCHC 33.1 (31.0-37.0) g/dL RDW 14.6 (11.5-15.5) % Plt Count 214 (150-450) k/uL Neutrophils % 69 % Lymphocytes % 22 % Monocytes % 4 % Eosinophils % 4 % Basophils % 1 % Neutrophils # 9.1 H (1.3-7.7) k/uL Lymphocytes # 3.0 (1.0-4.8) k/uL Monocytes # 0.5 (0-1.0) k/uL Eosinophils # 0.5 (0-0.7) k/uL Basophils # 0.1 (0-0.2) k/uL Sodium 140 (137-145) mmol/L Potassium 3.9 (3.5-5.1) mmol/L Chloride 111 H (98-107) mmol/L Carbon Dioxide 23 (22-30) mmol/L Anion Gap 6 mmol/L BUN 7 (7-17) mg/dL Creatinine 0.54 (0.52-1.04) mg/dL Est GFR (CKD-EPI)AfAm >90 (>60 ml/min/1.73 sqM) Est GFR (CKD-EPI)NonAf >90 (>60 ml/min/1.73 sqM) Glucose 94 (74-99) mg/dL Calcium 8.8 (8.4-10.2) mg/dL Total Bilirubin (0.2-1.3) mg/dL Conjugated Bilirubin (0.0-0.3) mg/dL Unconjugated Bilirubin (0.0-1.1) mg/dL Delta Bilirubin (0.0-0.2) mg/dL AST (14-36) U/L ALT (9-52) U/L Alkaline Phosphatase (38-126) U/L Total Protein (6.3-8.2) g/dL Albumin (3.5-5.0) g/dL Lipase (23-300) U/L HCG, Qual Not Detected Urine Color Light Yellow Urine Appearance Clear (Clear) Urine pH 6.0 (5.0-8.0) Ur Specific [place] 1.004 (1.001-1.035) Urine Protein Negative (Negative) Urine Glucose (UA) Negative (Negative) Urine Ketones Negative (Negative) Urine Blood Negative (Negative) Urine Nitrite Negative (Negative) Urine Bilirubin 2+ H (Negative) Urine Urobilinogen <2.0 (<2.0) mg/dL Ur Leukocyte Esterase Negative (Negative) 11/03/18 Range/Units 19:02 WBC (3.8-10.6) k/uL RBC (3.80-5.40) m/uL Hgb (11.4-16.0) gm/dL Hct (34.0-46.0) % MCV (80.0-100.0) fL MCH (25.0-35.0) pg MCHC (31.0-37.0) g/dL RDW (11.5-15.5) % Plt Count (150-450) k/uL Neutrophils % % Lymphocytes % % Monocytes % % Eosinophils % % Basophils % % Neutrophils # (1.3-7.7) k/uL Lymphocytes # (1.0-4.8) k/uL Monocytes # (0-1.0) k/uL Eosinophils # (0-0.7) k/uL Basophils # (0-0.2) k/uL Sodium (137-145) mmol/L Potassium (3.5-5.1) mmol/L Chloride (98-107) mmol/L Carbon Dioxide (22-30) mmol/L Anion Gap mmol/L BUN (7-17) mg/dL Creatinine (0.52-1.04) mg/dL Est GFR (CKD-EPI)AfAm (>60 ml/min/1.73 sqM) Est GFR (CKD-EPI)NonAf (>60 ml/min/1.73 sqM) Glucose (74-99) mg/dL Calcium (8.4-10.2) mg/dL Total Bilirubin 0.1 L (0.2-1.3) mg/dL Conjugated Bilirubin 0.0 (0.0-0.3) mg/dL Unconjugated Bilirubin 0.1 (0.0-1.1) mg/dL Delta Bilirubin 0.0 (0.0-0.2) mg/dL AST 16 (14-36) U/L ALT 26 (9-52) U/L Alkaline Phosphatase 57 (38-126) U/L Total Protein 6.0 L (6.3-8.2) g/dL Albumin 3.5 (3.5-5.0) g/dL Lipase 171 (23-300) U/L HCG, Qual Urine Color Urine Appearance (Clear) Urine pH (5.0-8.0) Ur Specific [place] (1.001-1.035) Urine Protein (Negative) Urine Glucose (UA) (Negative) Urine Ketones (Negative) Urine Blood (Negative) Urine Nitrite (Negative) Urine Bilirubin (Negative) Urine Urobilinogen (<2.0) mg/dL Ur Leukocyte Esterase (Negative) Disposition Clinical Impression: Bronchitis, Right flank pain Disposition: HOME SELF-CARE Condition: Good Instructions (If sedation given, give patient instructions): Acute Bronchitis (ED), Bronchospasm (ED), Wheezing (ED) Prescriptions: predniSONE 50 mg PO DAILY 5 Days #5 tab Benzonatate [Tessalon Perles] 200 mg PO Q8HR PRN #30 capsule PRN Reason: Cough Albuterol Inhaler [Ventolin Hfa Inhaler] 1 - 2 puff INHALATION RT-Q6H PRN #1 inhaler PRN Reason: Wheezing Is patient prescribed a controlled substance at d/c from ED?: No Referrals: Malena Milner MD [Primary Care Provider] - 1-2 days
[2018-11-03 18:52] LABS: Appearance,Urine Clear (Clear); Bilirubin,Urine 2+ (Negative); Blood,Urine Negative (Negative); Color,Urine Light Yellow; Glucose,Urine (UA) Negative (Negative); Ketones,Urine Negative (Negative); Leukocyte Esterase,Urine Negative (Negative); Nitrite,Urine Negative (Negative); Protein,Urine Negative (Negative); Specific Gravity,Urine 1.004 (1.001-1.035); Urobilinogen,Urine <2.0 mg/dL (<2.0)
[2018-11-03 19:12] LABS: Basophils # (A) 0.1 k/uL (0-0.2); Basophils % (A) 1 %; Eosinophils # (A) 0.5 k/uL (0-0.7); Eosinophils % (A) 4 %; HCT 43.2 % (34.0-46.0); HGB 14.3 gm/dL (11.4-16.0); Lymphocytes % (A) 22 %; MCH 32.6 pg (25.0-35.0); MCHC 33.1 g/dL (31.0-37.0); MCV 98.3 fL (80.0-100.0); Mean Platelet Volume 9.2; Monocytes # (A) 0.5 k/uL (0-1.0); Monocytes % (A) 4 %; Neutrophils # (A) 9.1 k/uL (1.3-7.7); Neutrophils % (A) 69 %; Platelet Count 214 k/uL (150-450); RBC 4.39 m/uL (3.80-5.40); RDW 14.6 % (11.5-15.5); WBC 13.3 k/uL (3.8-10.6)
[2018-11-03 19:23] LABS: HCG,Qualitative Serum Not Detected
[2018-11-03 19:27] LABS: African American GFR (CKD) >90 (>60 ml/min/1.73 sqM); Anion Gap 6 mmol/L; Blood Urea Nitrogen 7 mg/dL (7-17); Calcium 8.8 mg/dL (8.4-10.2); Carbon Dioxide 23 mmol/L (22-30); Chloride 111 mmol/L (98-107); Glucose 94 mg/dL (74-99); Non-African American GFR(CKD) >90 (>60 ml/min/1.73 sqM); Potassium 3.9 mmol/L (3.5-5.1); Sodium 140 mmol/L (137-145)
[2018-11-03] MEDS ORDERED: HALOPERIDOL LACTATE 5 MG/ML 1 ML VIAL IM STA (19:38)
--- NOTE | 2018-11-03 19:41 | XR ---
EXAMINATION TYPE: XR chest 2V DATE OF EXAM: 11/03/2018 COMPARISON: 09/14/2018 HISTORY: Cough TECHNIQUE: Frontal and lateral views of the chest are obtained. FINDINGS: Heart and mediastinum are normal. Lungs are clear. Diaphragm is normal. Bony thorax appear s normal. IMPRESSION: Normal chest. No change.
[2018-11-03 20:18] VITALS: TEMP 98
--- NOTE | 2018-11-03 21:15 | CT ---
EXAMINATION TYPE: CT abdomen pelvis w con DATE OF EXAM: 11/03/2018 COMPARISON: 11/16/2017 HISTORY: Right flank pain CT DLP: 827.6 mGycm Automated exposure control for dose reduction was used. TECHNIQUE: Helical acquisition of images was performed from the lung bases through the pelvis. CONTRAST: Performed without Oral Contrast and with IV Contrast, patient injected with 100 mL of Isovue 300. FINDINGS: Lung bases are clear. There is no pleural effusion. Heart size is normal. Liver spleen stomach pancreas appear normal. Bile ducts are not dilated. There are clips from cholecy stectomy. There is no adrenal mass. Kidneys show satisfactory contrast opacification. There is no hydronephrosi s. There is no adrenal mass. There is no retroperitoneal adenopathy. Bladder distends smoothly. There is no inguinal hernia. There is no free fluid in the pelvis. There i s no mesenteric edema. There is no ascites or free air. Appendix is not seen. There is no sign of thi ckened appendix. There are surgical clips in the right mid abdomen. Lumbar spine is intact. I see no bony destructive process. Bony pelvis is intact. IMPRESSION: NEGATIVE CT SCAN ABDOMEN AND PELVIS. NO RENAL STONE OR OBSTRUCTION. NO ADVERSE CHANGE COMPARED TO OLD EXAM. I DO NOT SEE A CAUSE FOR RIGHT FLANK PAIN.
[2018-11-03] MEDS ORDERED: predniSONE 20 MG TAB PO STA (21:39)
[2018-11-03 21:56] VITALS: BP 96/71; PULSE 87; RESP 16
[2018-11-04 22:42] LABS: Albumin 3.5 g/dL (3.5-5.0); Bilirubin,Unconjugated 0.1 mg/dL (0.0-1.1); Total Bilirubin 0.1 mg/dL (0.2-1.3)
== END 2018-11-03 21:55 | disposition home or self-care (01) ==
LOC: EC 17:34
DX: J40 Bronchitis, not specified as acute or chronic (principal); R10.9 Unspecified abdominal pain; M19.90 Unspecified osteoarthritis, unspecified site; G40.909 Epilepsy, unspecified, not intractable, without status epilepticus; F41.9 Anxiety disorder, unspecified; F17.200 Nicotine dependence, unspecified, uncomplicated; Z88.5 Allergy status to narcotic agent; Z88.8 Allergy status to other drugs, medicaments and biological substances; Z91.018 Allergy to other foods; Z79.1 Long term (current) use of non-steroidal anti-inflammatories (NSAID); Z79.899 Other long term (current) drug therapy; Z86.73 Personal history of transient ischemic attack (TIA), and cerebral infarction without residual deficits; Z90.49 Acquired absence of other specified parts of digestive tract
CPT/HCPCS: 36415; 94640; 80048; 80076; 83690; 85025; 81003; 84703; 71046; 74177; 99284; 96374; 96361 ×2; 96372; J1630; J1885; J7512; Q9967

== ENCOUNTER → 2018-11-12 | Outpatient (CLI) | payer OTHER ==
--- NOTE | 2018-11-13 00:20 | MR ---
EXAMINATION TYPE: MR angio head wo/neck wo/w con DATE OF EXAM: 11/12/2018 COMPARISON: None HISTORY: Syncope and collapse / Dizziness TECHNIQUE: Time of flight images focusing on the [place] were performed without contrast.. 2-D and 3-D postprocessing imaging is performed. FINDINGS: There is arterial flow in the anterior middle and posterior cerebral arteries. There is art erial flow in the vertebrobasilar artery system. I see no evidence of intracranial aneurysm or neovas cularity. There is no mass effect. There is no evidence of intracranial arterial stenosis. There is arterial flow in the common internal and external carotid arteries bilaterally. There is nor mal branching pattern of the great vessels on the aortic arch. There is arterial flow in both subclav j luis arteries. There is no evidence of carotid or vertebral artery aneurysm or dissection. Right verte bral artery is larger than the left. There is wide patency of the carotid artery bifurcations. There is no evidence of stenosis. IMPRESSION: Negative CT angiogram of the brain. Negative CT angiogram of the neck. No evidence of hemodynamic stenosis.
== END | disposition home or self-care (01) ==
LOC: RADMRIMAIN 14:30
PROVIDERS: ATTEND Psychiatry & Neurology Neurology
DX: R55 Syncope and collapse (principal); R42 Dizziness and giddiness
CPT/HCPCS: 70544; 70549; A9585

== ENCOUNTER 2018-11-28 16:15 | Emergency (ER) | payer OTHER ==
[2018-11-28 16:25] VITALS: BP 105/71; PULSE 86; RESP 18; TEMP 98
--- NOTE | 2018-11-28 17:24 | XR ---
EXAMINATION TYPE: XR hand limited RT DATE OF EXAM: 11/28/2018 COMPARISON: NONE HISTORY: Pain in the fifth digit TECHNIQUE: 3 views FINDINGS: There is narrowing of the DIP joints with spur formation. There is more severe spurring at the DIP joint of the little finger. I see no acute fracture nor dislocation. Metacarpals are intact. There are no erosions. There is no subluxation. IMPRESSION: There are some osteoarthritic changes in the DIP joints and more severe in the little fin kendall. 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 Erosive type ost eoarthritis not excluded.
--- NOTE | 2018-11-28 17:55 | ED ---
General Adult HPI - General Chief complaint: Extremity Injury, Upper Stated complaint: Finger Injury Time Seen by Provider: 11/28/18 16:28 Source: patient Mode of arrival: ambulatory Limitations: no limitations - History of Present Illness Initial comments: Patient is a 43-year-old female presenting to the emergency department with a chief complaint of right pinky finger pain. Patient reports mild traumatic injury to the right hand and possibly the right fifth digit about 2 months ago. Patient reports over. She has developed mild edema of the fifth digit along with tenderness on palpation. Patient has also developed 2 "bumps" in the right fifth digit that is limiting full closing on her right hand. Patient denies any erythema or skin discoloration. Patient denies any alleviating or aggravating factors. Patient denies taking medication to alleviate the symptoms. - Related Data Home Medications Medication Instructions Recorded Confirmed Cyclobenzaprine [Flexeril] 10 mg PO BID 04/09/17 11/03/18 Butalb/APAP/Caff 50-325-40Mg 1 - 2 tab PO Q4H PRN 11/16/17 11/03/18 [Fioricet 50-325-40] Divalproex [Depakote] 250 mg PO BID 11/16/17 11/03/18 Etodolac [Lodine] 400 mg PO BID 03/08/18 11/03/18 DULoxetine HCL [Cymbalta] 60 mg PO DAILY 11/03/18 11/03/18 Previous Rx's Medication Instructions Recorded Albuterol Inhaler [Ventolin Hfa 1 - 2 puff INHALATION RT-Q6H PRN 11/03/18 Inhaler] #1 inhaler Benzonatate [Tessalon Perles] 200 mg PO Q8HR PRN #30 capsule 11/03/18 predniSONE 50 mg PO DAILY 5 Days #5 tab 11/03/18 Allergies Allergy/AdvReac Type Severity Reaction Status Date / Time codeine Allergy Rash/Hives Verified 11/28/18 16:25 diphenhydramine Allergy Rash/Hives Verified 11/28/18 16:25 [From Benadryl] methylprednisolone Allergy Itching Verified 11/28/18 16:25 [From Solu-Medrol] onion Allergy Unknown Verified 11/28/18 16:25 Review of Systems ROS Statement: Those systems with pertinent positive or pertinent negative responses have been documented in the HPI. ROS Other: All systems not noted in ROS Statement are negative. Past Medical History Past Medical History: CVA/TIA, Osteoarthritis (OA), Seizure Disorder Additional Past Medical History / Comment(s): DDD. 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 Delgadillo's Esophagus. carpel tunnel B/L wrist, kidney stones, angina, "black out seizures" History of Any Multi-Drug Resistant Organisms: None Reported Past Surgical History: Appendectomy, Cholecystectomy, Hysterectomy, Tubal Ligation Additional Past Surgical History / Comment(s): PAIN CLINIC PROCEDURES Past Anesthesia/Blood Transfusion Reactions: No Reported Reaction Past Psychological History: Anxiety Smoking Status: Current every day smoker Past Alcohol Use History: None Reported Past Drug Use History: None Reported - Past Family History Mother Family Medical History: Diabetes Mellitus, Hypertension Additional Family Medical History / Comment(s): lupus Father Family Medical History: Unable to Obtain Additional Family Medical History / Comment(s): aunt and uncle mother side with CAD s/p CABG General Exam Limitations: no limitations General appearance: alert, in no apparent distress Head exam: Present: atraumatic, normocephalic, normal inspection Eye exam: Present: normal appearance, PERRL, EOMI Pupils: Present: normal accommodation ENT exam: Present: normal exam, normal oropharynx, mucous membranes moist, TM's normal bilaterally, normal external ear exam Neck exam: Present: normal inspection, full ROM Respiratory exam: Present: normal lung sounds bilaterally Cardiovascular Exam: Present: regular rate, normal rhythm, normal heart sounds Extremities exam: Present: full ROM (Limited range of motion with flexion of the right fifth digit.), tenderness (Mild tenderness of the right fifth digit), normal capillary refill, other (+2 ulnar and radial pulses bilaterally.). Absent: normal inspection (Mild mild medial deviation of the right fifth digit, to bone spurs noted in the DIP of the right fifth digit, mild edema noted in the right fifth digit compared to the left fifth digit. No lacerations or abrasions noted) Back exam: Present: normal inspection, full ROM Neurological exam: Present: alert, oriented X3 Psychiatric exam: Present: normal affect, normal mood Skin exam: Present: warm, intact, normal color Course Vital Signs 11/28/18 16:22 Temperature 98.0 F Pulse Rate 86 Respiratory 18 Rate Blood Pressure 105/71 O2 Sat by Pulse 95 Oximetry Medical Decision Making - Medical Decision Making Patient is a 43-year-old female presenting to emergency Department with a chief complaint of pinky finger pain. Patient did have a mild traumatic injury to the region approximately 2 months ago. Patient reports she developed mild edema during the period in the right fifth digit along with slight decrease in range of motion. X-ray is indicative of posttraumatic osteoarthritis and the DIP of the little finger. Erosive osteoarthritis is not excluded. Patient advised to apply ice compress to minimize symptoms. Patient advised to alternate between Tylenol and ibuprofen for pain control. Patient was to follow-up with orthopedics for further medical management. Strict return parameters were thoroughly discussed with patient was understanding and agreeable. Case discussed with physician. Disposition Clinical Impression: Post-traumatic osteoarthritis Disposition: HOME SELF-CARE Condition: Stable Instructions (If sedation given, give patient instructions): Osteoarthritis (DC) Additional Instructions: Please follow up with an geophysical support specialist. Please return to emergency department if symptoms worsen. Is patient prescribed a controlled substance at d/c from ED?: No Referrals: Malena Milner MD [Primary Care Provider] - 1-2 days Tiburcio Hendrickson DO [Doctor of Osteopathic Medicine] - 1-2 days Raf Hendrickson DO [Doctor of Osteopathic Medicine] - 1-2 days Time of Disposition: 17:54
== END 2018-11-28 18:02 | disposition home or self-care (01) ==
LOC: EC 16:15
DX: M19.141 Post-traumatic osteoarthritis, right hand (principal); G40.909 Epilepsy, unspecified, not intractable, without status epilepticus; F41.9 Anxiety disorder, unspecified; F17.200 Nicotine dependence, unspecified, uncomplicated; Z88.5 Allergy status to narcotic agent; Z88.8 Allergy status to other drugs, medicaments and biological substances; Z91.018 Allergy to other foods; Z79.1 Long term (current) use of non-steroidal anti-inflammatories (NSAID); Z79.899 Other long term (current) drug therapy; Z86.73 Personal history of transient ischemic attack (TIA), and cerebral infarction without residual deficits; Z86.69 Personal history of other diseases of the nervous system and sense organs
CPT/HCPCS: 99283

== ENCOUNTER 2018-12-30 14:41 | Emergency (ER) | payer OTHER ==
[2018-12-30] MEDS ORDERED: SODIUM CHLORIDE 0.9% 1,000 ML IV STA (15:10)
[2018-12-30] MEDS ORDERED: ONDANSETRON 4 MG/2 ML VIAL IVP STA (15:10)
[2018-12-30] MEDS ORDERED: MORPHINE SULFATE 4 MG/ML SYRINGE IVP STA (15:11)
--- NOTE | 2018-12-30 15:31 | XR ---
EXAMINATION TYPE: XR chest 2V DATE OF EXAM: 12/30/2018 COMPARISON: Chest x-ray November 03, 2018. HISTORY: Shortness of breath with cough and congestion. TECHNIQUE: Frontal and lateral views of the chest are obtained. FINDINGS: There is chronic parenchymal change bilaterally without suspicious focal air space opacity , pleural effusion, or pneumothorax seen. The cardiac silhouette size is within normal limits. The osseous structures are intact. IMPRESSION: No suspicious acute pulmonary process.
[2018-12-30 15:59] LABS: Basophils # (A) 0.1 k/uL (0-0.2); Basophils % (A) 2 %; Eosinophils # (A) 0.4 k/uL (0-0.7); Eosinophils % (A) 5 %; HCT 45.5 % (34.0-46.0); HGB 14.8 gm/dL (11.4-16.0); Lymphocytes # (A) 1.9 k/uL (1.0-4.8); Lymphocytes % (A) 24 %; MCH 32.5 pg (25.0-35.0); MCHC 32.5 g/dL (31.0-37.0); MCV 99.8 fL (80.0-100.0); Mean Platelet Volume 8.2; Monocytes # (A) 0.3 k/uL (0-1.0); Monocytes % (A) 4 %; Neutrophils % (A) 64 %; Platelet Count 221 k/uL (150-450); RBC 4.56 m/uL (3.80-5.40); RDW 13.1 % (11.5-15.5); WBC 7.9 k/uL (3.8-10.6)
[2018-12-30 16:01] LABS: Appearance,Urine Clear (Clear); Bilirubin,Urine Negative (Negative); Blood,Urine Negative (Negative); Color,Urine Light Yellow; Glucose,Urine (UA) Negative (Negative); Ketones,Urine Negative (Negative); Leukocyte Esterase,Urine Negative (Negative); Nitrite,Urine Negative (Negative); Protein,Urine Negative (Negative); Specific Gravity,Urine 1.003 (1.001-1.035); Urobilinogen,Urine <2.0 mg/dL (<2.0)
[2018-12-30 16:07] LABS: ALT 17 U/L (9-52); AST 23 U/L (14-36); African American GFR (CKD) >90 (>60 ml/min/1.73 sqM); Albumin 3.7 g/dL (3.5-5.0); Alkaline Phosphatase 49 U/L (38-126); Anion Gap 6 mmol/L; Blood Urea Nitrogen 7 mg/dL (7-17); Calcium 9.2 mg/dL (8.4-10.2); Carbon Dioxide 23 mmol/L (22-30); Chloride 109 mmol/L (98-107); Glucose 90 mg/dL (74-99); Potassium 4.1 mmol/L (3.5-5.1); Sodium 138 mmol/L (137-145); Total Bilirubin 0.3 mg/dL (0.2-1.3)
--- NOTE | 2018-12-30 16:30 | ED ---
Abdominal Pain HPI - General Chief Complaint: Abdominal Pain Stated Complaint: Poss Kidney Stones, Pneumonia Time Seen by Provider: 12/30/18 15:03 Source: patient Mode of arrival: ambulatory Limitations: no limitations - History of Present Illness Initial Comments: 43-year-old female presented [facility] department for evaluation of left lower abdominal pain. Patient also states she has had a cough for 3 weeks is concerned she has pneumonia. Patient states that she has had left abdominal pain since last night. Patient states is crampy in nature. Patient states that she has no diarrhea or vomiting fevers. Patient states that she is no hematuria dysuria or urgency frequency but feels this may be a kidney stone as it feels like his brain down the left flank. Patient states she does have history of previous stones and states that she has attempted to take Toradol operation but does not seem to help. In addition patient states she's had a cough for 3 weeks she states she cannot get it to go away she has taken steroids outpatient. Patient states the cough increased that night. Patient denies fevers, recent travel hemoptysis chest pain or shortness of breath. Review systems negative. Upon arrival patient appears well besides acute distress. - Related Data Home Medications Medication Instructions Recorded Confirmed Cyclobenzaprine [Flexeril] 10 mg PO BID PRN 04/09/17 12/30/18 Divalproex [Depakote] 250 mg PO BID 11/16/17 12/30/18 Etodolac [Lodine] 400 mg PO BID 03/08/18 12/30/18 Acetaminophen Tab [Tylenol Tab] 1,000 mg PO Q4H PRN 12/30/18 12/30/18 Allergies Allergy/AdvReac Type Severity Reaction Status Date / Time codeine Allergy Rash/Hives Verified 12/30/18 14:57 diphenhydramine Allergy Rash/Hives Verified 12/30/18 14:57 [From Benadryl] methylprednisolone Allergy Itching Verified 12/30/18 14:57 [From Solu-Medrol] onion Allergy Unknown Verified 12/30/18 14:57 Review of Systems ROS Statement: Those systems with pertinent positive or pertinent negative responses have been documented in the HPI. ROS Other: All systems not noted in ROS Statement are negative. Past Medical History Past Medical History: CVA/TIA, Osteoarthritis (OA), Seizure Disorder Additional Past Medical History / Comment(s): DDD. 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 Delgadillo's Esophagus. carpel tunnel B/L wrist, kidney stones, angina, "black out seizures" History of Any Multi-Drug Resistant Organisms: None Reported Past Surgical History: Appendectomy, Cholecystectomy, Hysterectomy, Tubal Ligation Additional Past Surgical History / Comment(s): PAIN CLINIC PROCEDURES Past Anesthesia/Blood Transfusion Reactions: No Reported Reaction Past Psychological History: Anxiety Smoking Status: Current every day smoker Past Alcohol Use History: None Reported Past Drug Use History: None Reported - Past Family History Mother Family Medical History: Diabetes Mellitus, Hypertension Additional Family Medical History / Comment(s): lupus Father Family Medical History: Unable to Obtain Additional Family Medical History / Comment(s): aunt and uncle mother side with CAD s/p CABG General Exam - General Exam Comments Initial Comments: General: The patient is awake and alert, in no distress, and does not appear acutely ill. Eye: +3 mm pupils are equal, round and reactive to light, extra-ocular movements are intact. No nystagmus. There is normal conjunctiva bilaterally. No signs of icterus. Ears, nose, mouth and throat: There are moist mucous membranes and no oral lesions. Neck: The neck is supple, there is no tenderness or JVD. Cardiovascular: There is a regular rate and rhythm. No murmur, rub or gallop is appreciated. Respiratory: Lungs are clear to auscultation, respirations are non-labored, breath sounds are equal. No wheezes, stridor, rales, or rhonchi. Gastrointestinal: Soft, non-distended, mild tenderness to palpation of the left lower aspect of the abdomen which is without masses or organomegaly noted. There is no rebound or guarding present. No CVA tenderness. Bowel sounds are unremarkable. No pain appreciated in groin. No LE edema. No calf tenderness. Musculoskeletal: Normal ROM, no tenderness. Strength 5/5. Sensation intact. DP pulses equal bilaterally 2+. Neurological: A&O x 3. CN II-XII intact grossly, There are no obvious motor or sensory deficits. Coordination appears grossly intact. Speech is normal. Skin: Skin is warm and dry and no rashes or lesions are noted. Psychiatric: Cooperative, appropriate mood & affect, normal judgment. Limitations: no limitations Course Vital Signs 12/30/18 12/30/18 14:45 17:15 Temperature 98.2 F 98.3 F Pulse Rate 93 71 Respiratory 22 18 Rate Blood Pressure 131/79 141/93 O2 Sat by Pulse 98 98 Oximetry Medical Decision Making - Medical Decision Making 43-year-old female presents emergency department for chief complaint of cough 3 weeks left lower abdominal pain patient concerned she has kidney stone. CT abdomen and pelvis negative for acute process. Patient does not appear to have acute abdomen. Lungs clear chest x-ray no focal consolidations. Patient actually while room air. No shortness of breath or chest pain. At this time feel patient most likely has a viral bronchitis. It is unclear the etiology of patient's left lower abdominal pain she states she feels the stone may have passed. No hematuria on urinalysis. At this time I discussed the case by attending provider Dr. Colón we feel patient is stable for discharge with outpatient PCP f/u. - Lab Data Result diagrams: 12/30/18 15:50 12/30/18 15:50 Lab Results 12/30/18 12/30/18 12/30/18 Range/Units 15:50 15:50 15:50 WBC 7.9 (3.8-10.6) k/uL RBC 4.56 (3.80-5.40) m/uL Hgb 14.8 (11.4-16.0) gm/dL Hct 45.5 (34.0-46.0) % MCV 99.8 (80.0-100.0) fL MCH 32.5 (25.0-35.0) pg MCHC 32.5 (31.0-37.0) g/dL RDW 13.1 (11.5-15.5) % Plt Count 221 (150-450) k/uL Neutrophils % 64 % Lymphocytes % 24 % Monocytes % 4 % Eosinophils % 5 % Basophils % 2 % Neutrophils # 5.0 (1.3-7.7) k/uL Lymphocytes # 1.9 (1.0-4.8) k/uL Monocytes # 0.3 (0-1.0) k/uL Eosinophils # 0.4 (0-0.7) k/uL Basophils # 0.1 (0-0.2) k/uL Sodium 138 (137-145) mmol/L Potassium 4.1 (3.5-5.1) mmol/L Chloride 109 H (98-107) mmol/L Carbon Dioxide 23 (22-30) mmol/L Anion Gap 6 mmol/L BUN 7 (7-17) mg/dL Creatinine 0.52 (0.52-1.04) mg/dL Est GFR (CKD-EPI)AfAm >90 (>60 ml/min/1.73 sqM) Est GFR (CKD-EPI)NonAf >90 (>60 ml/min/1.73 sqM) Glucose 90 (74-99) mg/dL Calcium 9.2 (8.4-10.2) mg/dL Total Bilirubin 0.3 (0.2-1.3) mg/dL AST 23 (14-36) U/L ALT 17 (9-52) U/L Alkaline Phosphatase 49 (38-126) U/L Total Protein 6.0 L (6.3-8.2) g/dL Albumin 3.7 (3.5-5.0) g/dL Urine Color Light Yellow Urine Appearance Clear (Clear) Urine pH 6.0 (5.0-8.0) Ur Specific [place] 1.003 (1.001-1.035) Urine Protein Negative (Negative) Urine Glucose (UA) Negative (Negative) Urine Ketones Negative (Negative) Urine Blood Negative (Negative) Urine Nitrite Negative (Negative) Urine Bilirubin Negative (Negative) Urine Urobilinogen <2.0 (<2.0) mg/dL Ur Leukocyte Esterase Negative (Negative) Disposition Clinical Impression: Cough, Abdominal pain Disposition: HOME SELF-CARE Condition: Good Instructions (If sedation given, give patient instructions): Abdominal Pain (ED) Additional Instructions: Please use medication as discussed. Please follow-up with family doctor in the next 2 days. Please return to emergency room if the symptoms increase or worsen or for any other concerns. Is patient prescribed a controlled substance at d/c from ED?: No Referrals: Malena Milner MD [Primary Care Provider] - 1-2 days Time of Disposition: 16:57
--- NOTE | 2018-12-30 16:45 | CT ---
EXAMINATION TYPE: CT abdomen pelvis w con DATE OF EXAM: 12/30/2018 COMPARISON: 11/03/2018 HISTORY: LLQ pain with nausea. CT DLP: 1047.1 mGycm Automated exposure control for dose reduction was used. TECHNIQUE: Helical acquisition of images was performed from the lung bases through the pelvis. CONTRAST: Performed without Oral Contrast and with IV Contrast, patient injected with 100 mL of Isovue 300. FINDINGS: Lung bases are clear. There is no pleural effusion. Heart size is normal. There is no pericardial eff usion. Stomach appears normal. There are clips from cholecystectomy. Liver spleen pancreas appear nor mal. Bile ducts are not dilated. There is no adrenal mass. Kidneys show satisfactory contrast opacification. There is no hydronephrosi s. There are clips from appendectomy. Ureters are not dilated. Bladder distends smoothly. There is no inguinal hernia. There is no free fluid in the pelvis. There is hysterectomy. There is no mesenteric edema. There is no ascites or free air. There is no sign of a bowel obstruction. Lumbar vertebra have normal alignment. Posterior elements are intact. There is no compression fractur e. Bony pelvis is intact. IMPRESSION: NEGATIVE CT SCAN ABDOMEN AND PELVIS. NO EVIDENCE OF RENAL STONE OR OBSTRUCTION. I DO NOT SEE A CAUSE FOR LEFT-SIDED PAIN. NO ADVERSE CHANGE COMPARED TO OLD EXAM.
[2018-12-30 17:25] VITALS: BP 141/93; PULSE 71; RESP 18; TEMP 98.3
== END 2018-12-30 17:15 | disposition home or self-care (01) ==
LOC: EC 14:41
DX: R10.32 Left lower quadrant pain (principal); R05 Cough; M19.90 Unspecified osteoarthritis, unspecified site; G40.909 Epilepsy, unspecified, not intractable, without status epilepticus; F17.200 Nicotine dependence, unspecified, uncomplicated; Z88.5 Allergy status to narcotic agent; Z88.8 Allergy status to other drugs, medicaments and biological substances; Z91.018 Allergy to other foods; Z79.1 Long term (current) use of non-steroidal anti-inflammatories (NSAID); Z79.899 Other long term (current) drug therapy; Z87.442 Personal history of urinary calculi; Z86.69 Personal history of other diseases of the nervous system and sense organs; Z90.49 Acquired absence of other specified parts of digestive tract
CPT/HCPCS: 99284; 96374; 96375; 96361; 36415; 80053; 85025; 81003; 71046; 74177; J2270; J2405; Q9967

== ENCOUNTER 2019-03-30 17:31 | Emergency (ER) | payer OTHER ==
[2019-03-30 17:49] VITALS: TEMP 98
[2019-03-30] MEDS ORDERED: KETOROLAC 30 MG/ML 1 ML VIAL IM STA (18:10)
--- NOTE | 2019-03-30 18:15 | ED ---
General Adult HPI - General Chief complaint: Recheck/Abnormal Lab/Rx Stated complaint: Breast pain Time Seen by Provider: 03/30/19 18:04 Source: patient, RN notes reviewed Mode of arrival: ambulatory Limitations: no limitations - History of Present Illness Initial comments: 43-year-old female presents to the emergency department for a chief complaint of left breast pain. States this has been ongoing for 1.5 weeks. States this is a burning pain in nature. States applying pressure to the left breast exam better however palpating makes it worse. History of hysterectomy. Patient denies any erythema or skin changes. She denies any chest pain or associated shortness of breath. Patient has no other complaints at this time including shortness of breath, chest pain, abdominal pain, nausea or vomiting, headache, or visual changes. - Related Data Home Medications Medication Instructions Recorded Confirmed Cyclobenzaprine [Flexeril] 10 mg PO BID PRN 04/09/17 12/30/18 Divalproex [Depakote] 250 mg PO BID 11/16/17 12/30/18 Etodolac [Lodine] 400 mg PO BID 03/08/18 12/30/18 Acetaminophen Tab [Tylenol Tab] 1,000 mg PO Q4H PRN 12/30/18 12/30/18 Allergies Allergy/AdvReac Type Severity Reaction Status Date / Time codeine Allergy Rash/Hives Verified 03/30/19 17:47 diphenhydramine Allergy Rash/Hives Verified 03/30/19 17:47 [From Benadryl] methylprednisolone Allergy Itching Verified 03/30/19 17:47 [From Solu-Medrol] onion Allergy Unknown Verified 03/30/19 17:47 Review of Systems ROS Statement: Those systems with pertinent positive or pertinent negative responses have been documented in the HPI. ROS Other: All systems not noted in ROS Statement are negative. Past Medical History Past Medical History: CVA/TIA, Osteoarthritis (OA), Seizure Disorder Additional Past Medical History / Comment(s): DDD. 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 Delgadillo's Esophagus. carpel tunnel B/L wrist, kidney stones, angina, "black out seizures" History of Any Multi-Drug Resistant Organisms: None Reported Past Surgical History: Appendectomy, Cholecystectomy, Hysterectomy, Tubal Ligation Additional Past Surgical History / Comment(s): PAIN CLINIC PROCEDURES Past Anesthesia/Blood Transfusion Reactions: No Reported Reaction Past Psychological History: Anxiety Smoking Status: Current every day smoker Past Alcohol Use History: None Reported Past Drug Use History: None Reported - Past Family History Mother Family Medical History: Diabetes Mellitus, Hypertension Additional Family Medical History / Comment(s): lupus Father Family Medical History: Unable to Obtain Additional Family Medical History / Comment(s): aunt and uncle mother side with CAD s/p CABG General Exam Limitations: no limitations General appearance: alert, in no apparent distress Head exam: Present: atraumatic, normocephalic, normal inspection Eye exam: Present: normal appearance, PERRL, EOMI. Absent: scleral icterus, conjunctival injection, periorbital swelling ENT exam: Present: normal exam, mucous membranes moist Neck exam: Present: normal inspection, full ROM. Absent: tenderness, meningismus, lymphadenopathy Respiratory exam: Present: normal lung sounds bilaterally. Absent: respiratory distress, wheezes, rales, rhonchi, stridor Cardiovascular Exam: Present: regular rate, normal rhythm, normal heart sounds. Absent: systolic murmur, diastolic murmur, rubs, gallop, clicks GI/Abdominal exam: Present: soft, normal bowel sounds. Absent: distended, tenderness, guarding, rebound, rigid Skin exam: Present: other (Left breast is normal in appearance. There are no skin changes. No erythema or peau d'orange . No induration or evidence of abscess. No evidence of cellulitis. Palpation to the generalized left breast does elicit mild pain.) Course Vital Signs 03/30/19 03/30/19 17:47 19:08 Temperature 98 F Pulse Rate 111 H 94 Respiratory 18 20 Rate Blood Pressure 135/75 131/85 O2 Sat by Pulse 97 98 Oximetry Medical Decision Making - Medical Decision Making Vitals are stable. Patient initially tachycardic although this did improve during her stay. Physical exam is unremarkable but does reveal left breast tenderness. No skin changes. No erythema. No evidence of abscess. She describes as a burning pain. It is not pleuritic. She does not have any associated chest pain or shortness of breath. It is reproducible on exam. Chest x-ray was obtained which shows no acute cardio pulmonary process. At this point I think patient needs outpatient ultrasound. I recommend she follows up with her primary care provider tomorrow and return if she has any worsening symptoms. Disposition Clinical Impression: Breast pain, left Disposition: HOME SELF-CARE Condition: Good Instructions (If sedation given, give patient instructions): Breast Self Exam for Women (ED) Additional Instructions: Please follow up with primary care tomorrow for possible ultrasound or mammogram. Please return to the emergency department if you have any worsening symptoms. Is patient prescribed a controlled substance at d/c from ED?: No Referrals: Malena Milner MD [Primary Care Provider] - 1-2 days Time of Disposition: 19:24
--- NOTE | 2019-03-30 18:24 | XR ---
EXAMINATION TYPE: XR chest 2V DATE OF EXAM: 03/30/2019 COMPARISON: 12/30/2018 INDICATION: Left breast pain, left chest. TECHNIQUE: Frontal and lateral views of the chest are obtained. FINDINGS: The heart size is normal. The pulmonary vasculature is normal. The lungs are clear. IMPRESSION: 1. No acute pulmonary process.
[2019-03-30 19:09] VITALS: BP 131/85; PULSE 94; RESP 20
== END 2019-03-30 19:42 | disposition home or self-care (01) ==
LOC: EC 17:31
DX: N64.4 Mastodynia (principal); G40.909 Epilepsy, unspecified, not intractable, without status epilepticus; F17.200 Nicotine dependence, unspecified, uncomplicated; Z79.899 Other long term (current) drug therapy; Z88.5 Allergy status to narcotic agent; Z88.8 Allergy status to other drugs, medicaments and biological substances; Z91.018 Allergy to other foods; Z86.73 Personal history of transient ischemic attack (TIA), and cerebral infarction without residual deficits
CPT/HCPCS: 71046; 99283; 96372; J1885

== ENCOUNTER 2019-04-12 19:19 | Emergency (ER) | payer OTHER ==
[2019-04-12 19:51] VITALS: RESP 18; TEMP 98.6
[2019-04-12] MEDS ORDERED: SODIUM CHLORIDE 0.9% 1,000 ML IV STA (19:52)
[2019-04-12] MEDS ORDERED: KETOROLAC 30 MG/ML 1 ML VIAL IVP STA (20:03)
--- NOTE | 2019-04-12 20:14 | ED ---
General Adult HPI - General Chief complaint: Abdominal Pain Stated complaint: Flank pain Time Seen by Provider: 04/12/19 19:52 Source: patient Mode of arrival: ambulatory Limitations: no limitations - History of Present Illness Initial comments: Dictation was produced using [employer] dictation software. please excuse any grammatical, word or spelling errors. Chief Complaint: 43-year-old female presents with flank pain. History of Present Illness: 3-year-old female she presents today with right flank pain for one day. Patient states she has a history of kidney stones. She states that the pain is at the right flank area. She describes it as colicky in nature. Patient was having kidney stone. She states she's had multiple kidney stones multiple times. She denies ever seeing a urologist for this. Denies any nausea vomiting. No abdominal pain. No diarrhea. She denies any urinary symptoms. The ROS documented in this emergency department record has been reviewed and confirmed by me. Those systems with pertinent positive or negative responses have been documented in the HPI. All other systems are other negative and/or noncontributory. PHYSICAL EXAM: General Impression: Alert and oriented x3, acute distress HEENT: Normocephalic atraumatic, extra-ocular movements intact, pupils equal and reactive to light bilaterally, mucous membranes moist. Cardiovascular: Heart regular rate and rhythm, S1&S2 audible, no murmurs, rubs or gallops Chest: Lungs clear to auscultation bilaterally, no rhonchi, no wheeze, no rales Abdomen: Bowel sounds present, abdomen soft, non-tender, non-distended, no organomegaly Musculoskeletal: Pulses present and equal in all extremities, no peripheral edema Motor: no focal deficits noted Neurological: CN II-XII grossly intact, no focal motor or sensory deficits noted Skin: Intact with no visualized rashes Psych: Normal affect and mood ED course: 43-year-old female who reports past medical history of kidney stones presents with right flank pain. As upon arrival shows heart rate of 131, rest of vital signs within acceptable limits. Chart review was performed. Patient is a frequent flier to emergency department for multiple complaints. Patient has had 8 [address] scans that are available in our EMR. In October 2016 she had a small kidney stone that was seen however there was no hydronephrosis at that time. All other CT scans were negative for any kidney stones. Patient had multiple workups with no apparent findings in the past. Laboratory evaluation obtained. Leukocytosis of 16.0 likely secondary to stress. Coag panel unremarkable. Metabolic panel shows mild acidosis without anion gap. Her analysis is negative. No blood. There is trace ketones. Given the patient reports that her symptoms are typical of her kidney stone pain ultrasound of the kidneys and bladder was obtained. There is no signs of hydronephrosis. Patient given intravenous fluids and IV analgesics. Patient displaying signs of drug- seeking behavior. She is adamant about receiving Dilaudid after she wasn't ready given Toradol and 2 [place] pills. Patient is urged to follow-up with urologist for outpatient management of kidney stones. She is told that she has leukocytosis of 16.0 slightly secondary to stress however she is told to follow- up with her primary care physician regarding this. Patient reevaluated after administration of Dilaudid with improvement of symptoms. Patient will be discharged. - Related Data Home Medications Medication Instructions Recorded Confirmed Cyclobenzaprine [Flexeril] 10 mg PO BID PRN 04/09/17 12/30/18 Divalproex [Depakote] 250 mg PO BID 11/16/17 12/30/18 Etodolac [Lodine] 400 mg PO BID 03/08/18 12/30/18 Acetaminophen Tab [Tylenol Tab] 1,000 mg PO Q4H PRN 12/30/18 12/30/18 Allergies Allergy/AdvReac Type Severity Reaction Status Date / Time codeine Allergy Rash/Hives Verified 04/12/19 19:51 diphenhydramine Allergy Rash/Hives Verified 04/12/19 19:51 [From Benadryl] methylprednisolone Allergy Itching Verified 04/12/19 19:51 [From Solu-Medrol] onion Allergy Unknown Verified 04/12/19 19:51 Review of Systems ROS Statement: Those systems with pertinent positive or pertinent negative responses have been documented in the HPI. ROS Other: All systems not noted in ROS Statement are negative. Past Medical History Past Medical History: CVA/TIA, Osteoarthritis (OA), Seizure Disorder Additional Past Medical History / Comment(s): DDD. 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 Delgadillo's Esophagus. carpel tunnel B/L wrist, kidney stones, angina, "black out seizures" History of Any Multi-Drug Resistant Organisms: None Reported Past Surgical History: Appendectomy, Cholecystectomy, Hysterectomy, Tubal Ligation Additional Past Surgical History / Comment(s): PAIN CLINIC PROCEDURES Past Anesthesia/Blood Transfusion Reactions: No Reported Reaction Past Psychological History: Anxiety Smoking Status: Current every day smoker Past Alcohol Use History: None Reported Past Drug Use History: None Reported - Past Family History Mother Family Medical History: Diabetes Mellitus, Hypertension Additional Family Medical History / Comment(s): lupus Father Family Medical History: Unable to Obtain Additional Family Medical History / Comment(s): aunt and uncle mother side with CAD s/p CABG General Exam Limitations: no limitations Course Vital Signs 04/12/19 19:46 Temperature 98.6 F Pulse Rate 131 H Respiratory 18 Rate Blood Pressure 141/114 O2 Sat by Pulse 96 Oximetry Medical Decision Making - Lab Data Result diagrams: 04/12/19 20:00 04/12/19 20:00 Lab Results 04/12/19 04/12/19 04/12/19 Range/Units 20:00 20:00 20:00 WBC 16.0 H (3.8-10.6) k/uL RBC 5.44 H (3.80-5.40) m/uL Hgb 18.2 H (11.4-16.0) gm/dL Hct 53.2 H (34.0-46.0) % MCV 97.7 (80.0-100.0) fL MCH 33.5 (25.0-35.0) pg MCHC 34.3 (31.0-37.0) g/dL RDW 13.3 (11.5-15.5) % Plt Count 293 (150-450) k/uL Neutrophils % (Manual) 67 % Lymphocytes % (Manual) 28 % Monocytes % (Manual) 5 % Neutrophils # (Manual) 10.72 H (1.3-7.7) k/uL Lymphocytes # (Manual) 4.48 (1.0-4.8) k/uL Monocytes # (Manual) 0.80 (0-1.0) k/uL Nucleated RBCs 0 (0-0) /100 WBC Manual Slide Review Performed Large Platelets Present PT (9.0-12.0) sec INR (<1.2) APTT (22.0-30.0) sec Sodium 137 (137-145) mmol/L Potassium 5.0 (3.5-5.1) mmol/L Chloride 109 H (98-107) mmol/L Carbon Dioxide 19 L (22-30) mmol/L Anion Gap 9 mmol/L BUN 9 (7-17) mg/dL Creatinine 0.53 (0.52-1.04) mg/dL Est GFR (CKD-EPI)AfAm >90 (>60 ml/min/1.73 sqM) Est GFR (CKD-EPI)NonAf >90 (>60 ml/min/1.73 sqM) Glucose 89 (74-99) mg/dL Calcium 9.6 (8.4-10.2) mg/dL Total Bilirubin 0.5 (0.2-1.3) mg/dL AST 25 (14-36) U/L ALT 13 (4-34) U/L Alkaline Phosphatase 48 (38-126) U/L Total Protein 6.6 (6.3-8.2) g/dL Albumin 4.2 (3.5-5.0) g/dL Lipase 196 (23-300) U/L Urine Color Yellow Urine Appearance Clear (Clear) Urine pH 5.5 (5.0-8.0) Ur Specific [place] 1.009 (1.001-1.035) Urine Protein Negative (Negative) Urine Glucose (UA) Negative (Negative) Urine Ketones Trace H (Negative) Urine Blood Negative (Negative) Urine Nitrite Negative (Negative) Urine Bilirubin 2+ H (Negative) Urine Urobilinogen <2.0 (<2.0) mg/dL Ur Leukocyte Esterase Negative (Negative) 04/12/19 Range/Units 20:00 WBC (3.8-10.6) k/uL RBC (3.80-5.40) m/uL Hgb (11.4-16.0) gm/dL Hct (34.0-46.0) % MCV (80.0-100.0) fL MCH (25.0-35.0) pg MCHC (31.0-37.0) g/dL RDW (11.5-15.5) % Plt Count (150-450) k/uL Neutrophils % (Manual) % Lymphocytes % (Manual) % Monocytes % (Manual) % Neutrophils # (Manual) (1.3-7.7) k/uL Lymphocytes # (Manual) (1.0-4.8) k/uL Monocytes # (Manual) (0-1.0) k/uL Nucleated RBCs (0-0) /100 WBC Manual Slide Review Large Platelets PT 9.6 (9.0-12.0) sec INR 0.9 (<1.2) APTT 22.6 (22.0-30.0) sec Sodium (137-145) mmol/L Potassium (3.5-5.1) mmol/L Chloride (98-107) mmol/L Carbon Dioxide (22-30) mmol/L Anion Gap mmol/L BUN (7-17) mg/dL Creatinine (0.52-1.04) mg/dL Est GFR (CKD-EPI)AfAm (>60 ml/min/1.73 sqM) Est GFR (CKD-EPI)NonAf (>60 ml/min/1.73 sqM) Glucose (74-99) mg/dL Calcium (8.4-10.2) mg/dL Total Bilirubin (0.2-1.3) mg/dL AST (14-36) U/L ALT (4-34) U/L Alkaline Phosphatase (38-126) U/L Total Protein (6.3-8.2) g/dL Albumin (3.5-5.0) g/dL Lipase (23-300) U/L Urine Color Urine Appearance (Clear) Urine pH (5.0-8.0) Ur Specific [place] (1.001-1.035) Urine Protein (Negative) Urine Glucose (UA) (Negative) Urine Ketones (Negative) Urine Blood (Negative) Urine Nitrite (Negative) Urine Bilirubin (Negative) Urine Urobilinogen (<2.0) mg/dL Ur Leukocyte Esterase (Negative) Disposition Clinical Impression: Flank pain Disposition: HOME SELF-CARE Condition: Good Instructions (If sedation given, give patient instructions): Kidney Stones (ED) Additional Instructions: Ypur white blood cell count is elevated. This likely secondary to to stress leukocytosis however you should follow-up with her primary care physician regarding this. It is highly recommended that she follow up with urology for outpatient management of kidney stones. Surgery emergency Department with any worsening symptoms including fever, worsening pain or urinary symptoms. Is patient prescribed a controlled substance at d/c from ED?: No Referrals: Malena Milner MD [Primary Care Provider] - 1-2 days Zach Campos MD [STAFF PHYSICIAN] - 1-2 days Time of Disposition: 21:07
[2019-04-12 20:16] LABS: Appearance,Urine Clear (Clear); Bilirubin,Urine 2+ (Negative); Blood,Urine Negative (Negative); Color,Urine Yellow; Glucose,Urine (UA) Negative (Negative); Ketones,Urine Trace (Negative); Leukocyte Esterase,Urine Negative (Negative); Nitrite,Urine Negative (Negative); PH, Urine 5.5 (5.0-8.0); Protein,Urine Negative (Negative); Specific Gravity,Urine 1.009 (1.001-1.035); Urobilinogen,Urine <2.0 mg/dL (<2.0)
[2019-04-12 20:21] LABS: HCT 53.2 % (34.0-46.0); HGB 18.2 gm/dL (11.4-16.0); MCH 33.5 pg (25.0-35.0); MCHC 34.3 g/dL (31.0-37.0); MCV 97.7 fL (80.0-100.0); Mean Platelet Volume 10.2; Platelet Count 293 k/uL (150-450); RBC 5.44 m/uL (3.80-5.40); RDW 13.3 % (11.5-15.5)
[2019-04-12] MEDS ORDERED: HYDROcodone/APAP 5-325MG 1 EACH TAB PO STA (20:33)
--- NOTE | 2019-04-12 20:41 | US ---
EXAMINATION TYPE: US kidneys/renal and bladder DATE OF EXAM: 04/12/2019 COMPARISON: CT 12/30/2018 CLINICAL HISTORY: right flank pain. EXAM MEASUREMENTS: Right Kidney: 10.7 x 4.0 x 4.1 cm Left Kidney: 11.5 x 4.9 x 4.2 cm Right Kidney: No hydronephrosis or masses seen Left Kidney: No hydronephrosis or masses seen Bladder: Not fully distended, wnl as visualized There is no evidence for hydronephrosis at this point in time. No nephrolithiasis is seen. No garrett s are identified. The urinary bladder is anechoic. Kidneys show normal cortical medullary differentiation. IMPRESSION: Renal sizes as described. No hydronephrosis.
[2019-04-12 20:45] LABS: Large Platelets Present; Lymphocytes # (M) 4.48 k/uL (1.0-4.8); Neutrophils # (M) 10.72 k/uL (1.3-7.7); Neutrophils % (M) 67 %; Nucleated Red Blood Cells 0 /100 WBC (0-0); Total Cells Counted 100
[2019-04-12 20:46] LABS: INR 0.9 (<1.2); Partial Thromboplastin Time 22.6 sec (22.0-30.0); Prothrombin Time 9.6 sec (9.0-12.0)
[2019-04-12 20:50] LABS: ALT 13 U/L (4-34); AST 25 U/L (14-36); African American GFR (CKD) >90 (>60 ml/min/1.73 sqM); Albumin 4.2 g/dL (3.5-5.0); Alkaline Phosphatase 48 U/L (38-126); Anion Gap 9 mmol/L; Blood Urea Nitrogen 9 mg/dL (7-17); Calcium 9.6 mg/dL (8.4-10.2); Carbon Dioxide 19 mmol/L (22-30); Chloride 109 mmol/L (98-107); Glucose 89 mg/dL (74-99); Non-African American GFR(CKD) >90 (>60 ml/min/1.73 sqM); Sodium 137 mmol/L (137-145); Total Bilirubin 0.5 mg/dL (0.2-1.3); Total Protein 6.6 g/dL (6.3-8.2)
[2019-04-12] MEDS ORDERED: HYDROmorphone 1 MG/ML 1 ML SYRINGE IVP STA (21:01)
[2019-04-12 21:26] VITALS: BP 119/90; PULSE 97
== END 2019-04-12 21:51 | disposition home or self-care (01) ==
LOC: EC 19:19
DX: R10.9 Unspecified abdominal pain (principal); G40.909 Epilepsy, unspecified, not intractable, without status epilepticus; E87.2 Acidosis; F17.200 Nicotine dependence, unspecified, uncomplicated; Z79.899 Other long term (current) drug therapy; Z88.5 Allergy status to narcotic agent; Z88.8 Allergy status to other drugs, medicaments and biological substances; Z91.018 Allergy to other foods; Z86.73 Personal history of transient ischemic attack (TIA), and cerebral infarction without residual deficits
CPT/HCPCS: 36415; 80053; 83690; 85025; 85610; 85730; 81003; 76770; 99284; 96374; 96375; 96361 ×2; J1885; J1170

== ENCOUNTER 2019-07-13 15:48 | Emergency (ER) | payer OTHER ==
--- NOTE | 2019-07-13 16:06 | ED ---
Weakness HPI - General Chief complaint: Weakness Stated complaint: Weakness Time Seen by Provider: 07/13/19 15:55 Source: patient Mode of arrival: wheelchair Limitations: no limitations - History of Present Illness Initial comments: The patient is a 43-year-old female past history of TIAs who presents emergency Department reported acute onset left upper and left lower extremity weakness. She reports that her symptoms. Around 3:20 PM after she got home from grocery shopping. Reports to similar in the past with her history of TIAs. No chronic weakness. She denies any headaches or visual changes. No vertiginous symptoms. Denies any speech difficulties. No blunt head trauma. She does see a neurologist in the outpatient setting. Denies any chest pain or shortness of breath. No abdominal pain. No concern for . Denies any fevers or chills. No neck pain or stiffness. There are no alleviating, Perceptin or modifying factors - Related Data Home Medications Medication Instructions Recorded Confirmed Cyclobenzaprine [Flexeril] 10 mg PO BID PRN 04/09/17 07/13/19 Divalproex [Depakote] 250 mg PO BID 11/16/17 07/13/19 Etodolac [Lodine] 400 mg PO BID 03/08/18 07/13/19 Acetaminophen Tab [Tylenol Tab] 1,000 mg PO Q4H PRN 12/30/18 07/13/19 Allergies Allergy/AdvReac Type Severity Reaction Status Date / Time codeine Allergy Rash/Hives Verified 07/13/19 17:16 diphenhydramine Allergy Rash/Hives Verified 07/13/19 17:16 [From Benadryl] methylprednisolone Allergy Itching Verified 07/13/19 17:16 [From Solu-Medrol] onion Allergy Unknown Verified 07/13/19 17:16 Review of Systems ROS Statement: Those systems with pertinent positive or pertinent negative responses have been documented in the HPI. ROS Other: All systems not noted in ROS Statement are negative. Past Medical History Past Medical History: CVA/TIA, Osteoarthritis (OA), Seizure Disorder Additional Past Medical History / Comment(s): DDD. 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 Delgadillo's Esophagus. carpel tunnel B/L wrist, kidney stones, angina, "black out seizures" History of Any Multi-Drug Resistant Organisms: None Reported Past Surgical History: Appendectomy, Cholecystectomy, Hysterectomy, Tubal Ligation Additional Past Surgical History / Comment(s): PAIN CLINIC PROCEDURES Past Anesthesia/Blood Transfusion Reactions: No Reported Reaction Past Psychological History: Anxiety Smoking Status: Current every day smoker Past Alcohol Use History: None Reported Past Drug Use History: None Reported - Past Family History Mother Family Medical History: Diabetes Mellitus, Hypertension Additional Family Medical History / Comment(s): lupus Father Family Medical History: Unable to Obtain Additional Family Medical History / Comment(s): aunt and uncle mother side with CAD s/p CABG General Exam Limitations: no limitations General appearance: alert, in no apparent distress Head exam: Present: atraumatic, normocephalic, normal inspection Eye exam: Present: normal appearance, PERRL, EOMI. Absent: scleral icterus, conjunctival injection, periorbital swelling ENT exam: Present: normal exam, mucous membranes moist Neck exam: Present: normal inspection. Absent: tenderness, meningismus, lymphadenopathy Respiratory exam: Present: normal lung sounds bilaterally. Absent: respiratory distress, wheezes, rales, rhonchi, stridor Cardiovascular Exam: Present: normal rhythm, tachycardia, normal heart sounds. Absent: systolic murmur, diastolic murmur, rubs, gallop, clicks GI/Abdominal exam: Present: soft, normal bowel sounds. Absent: distended, tenderness, guarding, rebound, rigid Extremities exam: Present: full ROM, normal capillary refill, other (drift left upper and left lower extremity No facial droop, slurred speech or aphasia. ). Absent: tenderness, pedal edema, joint swelling, calf tenderness Back exam: Present: normal inspection Neurological exam: Present: alert, oriented X3, CN II-XII intact Psychiatric exam: Present: normal affect, normal mood Skin exam: Present: warm, dry, intact, normal color. Absent: rash Course Vital Signs 07/13/19 07/13/19 07/13/19 15:51 16:00 16:25 Temperature 98.0 F 98 F 98 F Pulse Rate 115 H 88 96 Respiratory 20 18 18 Rate Blood Pressure 153/82 115/88 136/106 O2 Sat by Pulse 98 98 98 Oximetry 07/13/19 07/13/19 07/13/19 16:40 16:55 17:10 Temperature 98 F 98 F 98 F Pulse Rate 96 18 L 18 L Respiratory 18 94 H 94 H Rate Blood Pressure 136/85 136/85 136/85 O2 Sat by Pulse 98 98 98 Oximetry 07/13/19 07/13/19 07/13/19 17:25 17:40 18:10 Temperature 98 F 98 F Pulse Rate 86 89 86 Respiratory 18 18 18 Rate Blood Pressure 132/88 100/72 128/90 O2 Sat by Pulse 98 98 98 Oximetry 07/13/19 18:34 Temperature Pulse Rate 86 Respiratory 18 Rate Blood Pressure 128/90 O2 Sat by Pulse 98 Oximetry EKG Findings - EKG Comments: EKG Findings:: EKG demonstrates a sinus tachycardia with a ventricular rate of 108. MO interval 1:30. QRS 68. QTC of 439. No acute ST segment elevations or depressions concerning for ischemic changes Medical Decision Making - Medical Decision Making Upon arrival patient placed into room 17. [place] stroke scale is performed and the patient does have a score of 2. Symptom onset was at 320 pm. Because of this I did activate a code stroke. Discuss case with Dr. Chiu. The patient was sent over for CT of her brain as well as CT angiography. Laboratory study was conducted and was unremarkable. CT of the brain demonstrates a negative CT angiogram of the head and neck. A chest x-ray was also performed which demonstrates no acute findings. The patient is revalued and does have complete resolution in her symptoms. NH is 0. Because of this, TPA is not administered to the patient. I discussed the diagnosis, differential and treatment options. I did recommend hospital admission for which the patient refused. States that she's has similar episodes in the past and would like to follow up with her neurologist the outpatient setting. I did discuss risk of leaving to include permanent disability and even and the patient understood this. I asked her to call her neurologist in the morning. Return to the emergency room for any new or worsening symptoms. Patient was in agreement treatment plan she is discharged home in stable condition - Lab Data Result diagrams: 07/13/19 16:10 07/13/19 16:10 Lab Results 07/13/19 07/13/19 07/13/19 Range/Units 16:10 16:10 16:10 WBC 12.2 H (3.8-10.6) k/uL RBC 4.60 (3.80-5.40) m/uL Hgb 14.8 (11.4-16.0) gm/dL Hct 44.2 (34.0-46.0) % MCV 96.3 (80.0-100.0) fL MCH 32.3 (25.0-35.0) pg MCHC 33.5 (31.0-37.0) g/dL RDW 12.8 (11.5-15.5) % Plt Count 230 (150-450) k/uL Neutrophils % 66 % Lymphocytes % 24 % Monocytes % 5 % Eosinophils % 4 % Basophils % 0 % Neutrophils # 8.1 H (1.3-7.7) k/uL Lymphocytes # 2.9 (1.0-4.8) k/uL Monocytes # 0.6 (0-1.0) k/uL Eosinophils # 0.4 (0-0.7) k/uL Basophils # 0.1 (0-0.2) k/uL PT 9.4 (9.0-12.0) sec INR 0.9 (<1.2) APTT 22.4 (22.0-30.0) sec Sodium 137 (137-145) mmol/L Potassium 4.1 (3.5-5.1) mmol/L Chloride 105 (98-107) mmol/L Carbon Dioxide 26 (22-30) mmol/L Anion Gap 6 mmol/L BUN 6 L (7-17) mg/dL Creatinine 0.54 (0.52-1.04) mg/dL Est GFR (CKD-EPI)AfAm >90 (>60 ml/min/1.73 sqM) Est GFR (CKD-EPI)NonAf >90 (>60 ml/min/1.73 sqM) Glucose 93 (74-99) mg/dL POC Glucose (mg/dL) (75-99) mg/dL POC Glu Deburrer Machine ID Calcium 9.2 (8.4-10.2) mg/dL Total Bilirubin 0.3 (0.2-1.3) mg/dL AST 22 (14-36) U/L ALT 14 (4-34) U/L Alkaline Phosphatase 52 (38-126) U/L Troponin I (0.000-0.034) ng/mL Total Protein 6.2 L (6.3-8.2) g/dL Albumin 3.7 (3.5-5.0) g/dL Urine Color Urine Appearance (Clear) Urine pH (5.0-8.0) Ur Specific [place] (1.001-1.035) Urine Protein (Negative) Urine Glucose (UA) (Negative) Urine Ketones (Negative) Urine Blood (Negative) Urine Nitrite (Negative) Urine Bilirubin (Negative) Urine Urobilinogen (<2.0) mg/dL Ur Leukocyte Esterase (Negative) 07/13/19 07/13/19 07/13/19 Range/Units 16:10 16:33 Unknown WBC (3.8-10.6) k/uL RBC (3.80-5.40) m/uL Hgb (11.4-16.0) gm/dL Hct (34.0-46.0) % MCV (80.0-100.0) fL MCH (25.0-35.0) pg MCHC (31.0-37.0) g/dL RDW (11.5-15.5) % Plt Count (150-450) k/uL Neutrophils % % Lymphocytes % % Monocytes % % Eosinophils % % Basophils % % Neutrophils # (1.3-7.7) k/uL Lymphocytes # (1.0-4.8) k/uL Monocytes # (0-1.0) k/uL Eosinophils # (0-0.7) k/uL Basophils # (0-0.2) k/uL PT (9.0-12.0) sec INR (<1.2) APTT (22.0-30.0) sec Sodium (137-145) mmol/L Potassium (3.5-5.1) mmol/L Chloride (98-107) mmol/L Carbon Dioxide (22-30) mmol/L Anion Gap mmol/L BUN (7-17) mg/dL Creatinine (0.52-1.04) mg/dL Est GFR (CKD-EPI)AfAm (>60 ml/min/1.73 sqM) Est GFR (CKD-EPI)NonAf (>60 ml/min/1.73 sqM) Glucose (74-99) mg/dL POC Glucose (mg/dL) 87 (75-99) mg/dL POC Glu Deburrer Machine ID Marleen John Calcium (8.4-10.2) mg/dL Total Bilirubin (0.2-1.3) mg/dL AST (14-36) U/L ALT (4-34) U/L Alkaline Phosphatase (38-126) U/L Troponin I <0.012 (0.000-0.034) ng/mL Total Protein (6.3-8.2) g/dL Albumin (3.5-5.0) g/dL Urine Color Light Yellow Urine Appearance Clear (Clear) Urine pH 6.5 (5.0-8.0) Ur Specific [place] 1.013 (1.001-1.035) Urine Protein Negative (Negative) Urine Glucose (UA) Negative (Negative) Urine Ketones Negative (Negative) Urine Blood Negative (Negative) Urine Nitrite Negative (Negative) Urine Bilirubin Negative (Negative) Urine Urobilinogen <2.0 (<2.0) mg/dL Ur Leukocyte Esterase Negative (Negative) Disposition Clinical Impression: History of TIA (transient ischemic attack), Acute left-sided weakness Disposition: HOME SELF-CARE Condition: Stable Instructions (If sedation given, give patient instructions): Transient Ischemic Attack (ED) Additional Instructions: I did recommend hospital admission. Please follow-up with your neurologist within 2-4 days. Return to the emergency room for any new or worsening symptoms Is patient prescribed a controlled substance at d/c from ED?: No Referrals: Malena Milner MD [Primary Care Provider] - 1-2 days Time of Disposition: 19:47
[2019-07-13 16:12] VITALS: TEMP 98
[2019-07-13 16:22] LABS: Basophils # (A) 0.1 k/uL (0-0.2); Basophils % (A) 0 %; Eosinophils # (A) 0.4 k/uL (0-0.7); Eosinophils % (A) 4 %; HCT 44.2 % (34.0-46.0); HGB 14.8 gm/dL (11.4-16.0); Lymphocytes # (A) 2.9 k/uL (1.0-4.8); Lymphocytes % (A) 24 %; MCH 32.3 pg (25.0-35.0); MCHC 33.5 g/dL (31.0-37.0); MCV 96.3 fL (80.0-100.0); Mean Platelet Volume 8.9; Monocytes # (A) 0.6 k/uL (0-1.0); Monocytes % (A) 5 %; Neutrophils # (A) 8.1 k/uL (1.3-7.7); Neutrophils % (A) 66 %; Platelet Count 230 k/uL (150-450); RDW 12.8 % (11.5-15.5); WBC 12.2 k/uL (3.8-10.6)
[2019-07-13 16:29] LABS: ALT 14 U/L (4-34); AST 22 U/L (14-36); African American GFR (CKD) >90 (>60 ml/min/1.73 sqM); Albumin 3.7 g/dL (3.5-5.0); Alkaline Phosphatase 52 U/L (38-126); Anion Gap 6 mmol/L; Blood Urea Nitrogen 6 mg/dL (7-17); Calcium 9.2 mg/dL (8.4-10.2); Carbon Dioxide 26 mmol/L (22-30); Chloride 105 mmol/L (98-107); Glucose 93 mg/dL (74-99); Non-African American GFR(CKD) >90 (>60 ml/min/1.73 sqM); Potassium 4.1 mmol/L (3.5-5.1); Sodium 137 mmol/L (137-145); Total Bilirubin 0.3 mg/dL (0.2-1.3); Total Protein 6.2 g/dL (6.3-8.2)
--- NOTE | 2019-07-13 16:36 | CT ---
EXAMINATION TYPE: CT brain wo con for TPA DATE OF EXAM: 07/13/2019 COMPARISON: 06/02/2018 HISTORY: Left sided numbness and weakness. CT DLP: 1089.8 mGycm Automated exposure control for dose reduction was used. Ventricles and sulci appear normal. There is no mass effect nor midline shift. There is no sign of in tracranial hemorrhage. Calvarium is intact. There is some mucosal thickening in the ethmoid maxillary and sphenoid sinuses. IMPRESSION: Negative CT scan of the brain. Sinusitis. Sinusitis that is worse than old exam.
[2019-07-13 16:43] LABS: Glucose,Whole Blood 87 mg/dL (75-99)
[2019-07-13 16:44] LABS: INR 0.9 (<1.2); Partial Thromboplastin Time 22.4 sec (22.0-30.0); Prothrombin Time 9.4 sec (9.0-12.0)
--- NOTE | 2019-07-13 17:31 | CT ---
EXAMINATION TYPE: CT angio head neck DATE OF EXAM: 07/13/2019 COMPARISON: None HISTORY: Left sided weakness and numbness CT DLP: 521.1 mGycm Automated exposure control for dose reduction was used. CONTRAST: Performed with IV Contrast, patient injected with 65 mL of Isovue 370. There are 3-D post processed images. Images were obtained from the aortic arch to the vertex of the brain. There is normal branching pattern of the great vessels on the aortic arch. There is bilateral arteria l flow in the subclavian arteries. There is arterial flow in the common internal and external carotid arteries bilaterally. There is wide patency of the carotid artery bifurcations. There is bilateral a rterial flow in the vertebral arteries. There is patency of the vertebrobasilar artery system. There is no evidence of carotid or vertebral artery aneurysm or dissection. There is arterial flow in the anterior middle and posterior cerebral arteries. There is no mass effec t. There is no evidence of intracranial aneurysm or neovascularity. I see no evidence of intracranial arterial stenosis. There is normal contrast opacification of the venous sinuses. There is some mucosal thickening in the maxillary sphenoid and ethmoid sinuses. IMPRESSION: Negative CT angiogram of the neck. Negative CT angiogram of the brain. Sinusitis.
--- NOTE | 2019-07-13 17:39 | XR ---
EXAMINATION TYPE: XR chest 2V DATE OF EXAM: 07/13/2019 COMPARISON: 03/30/2019 HISTORY: Altered mental status TECHNIQUE: FINDINGS: There is no heart failure nor confluent pneumonic infiltrate. Heart and mediastinum are nor mal. Diaphragm is normal. There are chest leads. Bony thorax is intact. IMPRESSION: Normal chest. No change.
[2019-07-13 17:45] VITALS: RESP 18
[2019-07-13] MEDS ORDERED: ACETAMINOPHEN TAB 325 MG TAB PO STA (17:45)
[2019-07-13 18:07] LABS: Appearance,Urine Clear (Clear); Bilirubin,Urine Negative (Negative); Blood,Urine Negative (Negative); Color,Urine Light Yellow; Glucose,Urine (UA) Negative (Negative); Ketones,Urine Negative (Negative); Leukocyte Esterase,Urine Negative (Negative); Nitrite,Urine Negative (Negative); PH, Urine 6.5 (5.0-8.0); Protein,Urine Negative (Negative); Specific Gravity,Urine 1.013 (1.001-1.035); Urobilinogen,Urine <2.0 mg/dL (<2.0)
[2019-07-13 18:35] VITALS: BP 128/90; PULSE 86
== END 2019-07-13 19:58 | disposition home or self-care (01) ==
LOC: EC 15:48
DX: R53.1 Weakness (principal); R29.702 NIHSS score 2; F17.200 Nicotine dependence, unspecified, uncomplicated; G40.909 Epilepsy, unspecified, not intractable, without status epilepticus; M19.90 Unspecified osteoarthritis, unspecified site; G43.909 Migraine, unspecified, not intractable, without status migrainosus; I25.2 Old myocardial infarction; Z79.899 Other long term (current) drug therapy; Z79.1 Long term (current) use of non-steroidal anti-inflammatories (NSAID); Z88.5 Allergy status to narcotic agent; Z88.8 Allergy status to other drugs, medicaments and biological substances; Z91.018 Allergy to other foods; Z86.73 Personal history of transient ischemic attack (TIA), and cerebral infarction without residual deficits; Z53.20 Procedure and treatment not carried out because of patient's decision for unspecified reasons
CPT/HCPCS: 36415; 93005; 80053; 84484; 85025; 85610; 85730; 81003; 71046; 70496; 70450; 70498; 99285; Q9967

== ENCOUNTER → 2019-07-21 | Outpatient (CLI) | payer OTHER ==
--- NOTE | 2019-07-26 11:42 | ECHOF ---
Referral Reason:R00.2 Palpitations,R06.02 Shortness of Breath,R60. MEASUREMENTS -------- HEIGHT: 154.9 cm WEIGHT: 73.9 kg BP: IVSd: 1.2 cm (0.6 - 1.1) LVIDd: 3.5 cm (3.9 - 5.3) LVPWd: 1.2 cm (0.6 - 1.1) IVSs: 1.6 cm LVIDs: 2.3 cm LVPWs: 1.5 cm LAESV Index (A-L): 23.22 ml/m Ao Diam: 2.6 cm (2.0 - 3.7) AV Cusp: 1.9 cm (1.5 - 2.6) LA Diam: 2.8 cm (2.7 - 3.8) MV EXCURSION: 13.341 mm (> 18.000) MV EF SLOPE: 78 mm/s (70 - 150) EPSS: 0.6 cm MV E Daniel: 1.13 m/s MV DecT: 192 ms MV A Daniel: 0.97 m/s MV E/A Ratio: 1.17 RAP: 5.00 mmHg RVSP: 25.96 mmHg TAPSE: 21.26 mm FINDINGS -------- Sinus rhythm. This was a technically good study. The left ventricular size is normal. There is mild concentric left ventricular hypertrophy. Overa ll left ventricular systolic function is normal with, an EF between 55 - 60 %. The right ventricle is normal in size. The left atrial size is normal. Normal LA size by volume 22+/-6 ml/m2. The right atrial size is normal. The aortic valve is trileaflet and appears structurally normal. The mitral valve is normal. There is trace mitral regurgitation. The tricuspid valve appears structurally normal. Trace tricuspid regurgitation present. Right veto tricular systolic pressure is normal at < 35 mmHg. There is no pulmonic regurgitation present. The aortic root size is normal. Normal inferior vena cava with normal inspiratory collapse consistent with estimated right atrial pre ssure of 5 mmHg. There is no pericardial effusion. CONCLUSIONS -------- 1. Sinus rhythm. 2. This was a technically good study. 3. The left ventricular size is normal. 4. There is mild concentric left ventricular hypertrophy. 5. Overall left ventricular systolic function is normal with, an EF between 55 - 60 %. 6. The right ventricle is normal in size. 7. The left atrial size is normal. 8. Normal LA size by volume 22+/-6 ml/m2. 9. The right atrial size is normal. 10. The aortic valve is trileaflet and appears structurally normal. 11. The mitral valve is normal. 12. There is trace mitral regurgitation. 13. The tricuspid valve appears structurally normal. 14. Trace tricuspid regurgitation present. 15. Right ventricular systolic pressure is normal at < 35 mmHg. 16. There is no pulmonic regurgitation present. 17. The aortic root size is normal. 18. Normal inferior vena cava with normal inspiratory collapse consistent with estimated right atrial pressure of 5 mmHg. 19. There is no pericardial effusion. NETBACKUP ADMIN: Wendi Hayes RDCS
== END | disposition home or self-care (01) ==
LOC: RADECHMAIN 12:10
PROVIDERS: ATTEND Family Medicine
DX: I51.7 Cardiomegaly (principal); I08.1 Rheumatic disorders of both mitral and tricuspid valves; Z86.73 Personal history of transient ischemic attack (TIA), and cerebral infarction without residual deficits
CPT/HCPCS: 93306

== ENCOUNTER 2019-08-20 15:19 | Emergency (ER) | payer OTHER ==
[2019-08-20 15:34] VITALS: BP 131/84; PULSE 103; RESP 18; TEMP 98.6
== END 2019-08-20 16:26 | disposition left against medical advice (07) ==
LOC: EC 15:19
DX: R07.9 Chest pain, unspecified (principal)
CPT/HCPCS: 93005; 99499

== ENCOUNTER 2019-11-29 15:34 | Observation (INO) | payer OTHER ==
[2019-11-29] MEDS ORDERED: NITROGLYCERIN OINT 1 INCH/GM PACKET TOPICAL STA (15:49)
[2019-11-29] MEDS ORDERED: SODIUM CHLORIDE 0.9% 500 ML 500 ML IV STA (15:50)
[2019-11-29 16:01] LABS: Basophils # (A) 0.1 k/uL (0-0.2); Basophils % (A) 1 %; Eosinophils # (A) 0.4 k/uL (0-0.7); Eosinophils % (A) 4 %; HCT 45.7 % (34.0-46.0); HGB 15.2 gm/dL (11.4-16.0); Lymphocytes # (A) 2.7 k/uL (1.0-4.8); Lymphocytes % (A) 28 %; MCHC 33.2 g/dL (31.0-37.0); MCV 96.4 fL (80.0-100.0); Mean Platelet Volume 8.5; Monocytes # (A) 0.4 k/uL (0-1.0); Monocytes % (A) 4 %; Neutrophils % (A) 61 %; Platelet Count 268 k/uL (150-450); RBC 4.73 m/uL (3.80-5.40); RDW 13.1 % (11.5-15.5); WBC 9.9 k/uL (3.8-10.6)
--- NOTE | 2019-11-29 16:07 | ED ---
Chest Pain HPI - General Chief Complaint: Chest Pain Stated Complaint: chest pain Time Seen by Provider: 11/29/19 15:34 Source: patient, EMS, RN notes reviewed Mode of arrival: EMS Limitations: no limitations - History of Present Illness Initial Comments: This is a 44-year-old female presented by EMS with complaints of chest pain. She states is her about an hour ago. Substernal pressure radiation up to the shoulder and back area. Also a sharp component to it she states was very severe about 10/10 she was given aspirin and one nitroglycerin did improve down to 8/10 pressure resolving the sharpness is still there. No complaints of cough fevers chills nausea vomiting sweats she was recently taken off medication she is on a monitor at this time. MD Complaint: chest pain - Related Data Home Medications Medication Instructions Recorded Confirmed Cyclobenzaprine [Flexeril] 10 mg PO BID PRN 04/09/17 07/13/19 Divalproex [Depakote] 250 mg PO BID 11/16/17 07/13/19 Etodolac [Lodine] 400 mg PO BID 03/08/18 07/13/19 Acetaminophen Tab [Tylenol Tab] 1,000 mg PO Q4H PRN 12/30/18 07/13/19 Allergies Allergy/AdvReac Type Severity Reaction Status Date / Time codeine Allergy Rash/Hives Verified 08/20/19 15:34 diphenhydramine Allergy Rash/Hives Verified 08/20/19 15:34 [From Benadryl] methylprednisolone Allergy Itching Verified 08/20/19 15:34 [From Solu-Medrol] onion Allergy Unknown Verified 08/20/19 15:34 Review of Systems ROS Statement: Those systems with pertinent positive or pertinent negative responses have been documented in the HPI. ROS Other: All systems not noted in ROS Statement are negative. EKG Findings - EKG Results: EKG: interpreted by ERMD, sinus rhythm (Normal sinus rhythm and 96. Interval 122 QRS duration 70 QT since QTC 366/[address]-T wave changes) Past Medical History Past Medical History: CVA/TIA, Osteoarthritis (OA), Seizure Disorder Additional Past Medical History / Comment(s): DDD. 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 Delgadillo's Esophagus. carpel tunnel B/L wrist, kidney stones, angina, "black out seizures" History of Any Multi-Drug Resistant Organisms: None Reported Past Surgical History: Appendectomy, Cholecystectomy, Hysterectomy, Tubal Ligation Additional Past Surgical History / Comment(s): PAIN CLINIC PROCEDURES Past Anesthesia/Blood Transfusion Reactions: No Reported Reaction Past Psychological History: Anxiety Smoking Status: Former smoker Past Alcohol Use History: None Reported Past Drug Use History: None Reported - Past Family History Mother Family Medical History: Diabetes Mellitus, Hypertension Additional Family Medical History / Comment(s): lupus Father Family Medical History: Unable to Obtain Additional Family Medical History / Comment(s): aunt and uncle mother side with CAD s/p CABG General Exam - General Exam Comments Initial Comments: This is a well-developed well-nourished awake alert oriented 3 female Limitations: no limitations General appearance: alert, anxious Head exam: Present: atraumatic, normocephalic, normal inspection Eye exam: Present: normal appearance, PERRL, EOMI. Absent: scleral icterus, c onjunctival injection, periorbital swelling ENT exam: Present: normal exam, mucous membranes moist Neck exam: Present: normal inspection, full ROM, other (No stridor JVD or bruits). Absent: tenderness, meningismus, lymphadenopathy Respiratory exam: Present: normal lung sounds bilaterally, chest wall tenderness (Tennis palpation of left costal sternal margin. No step-off or crepitation.). Absent: respiratory distress, wheezes, rales, rhonchi, stridor Cardiovascular Exam: Present: regular rate, normal rhythm, normal heart sounds. Absent: systolic murmur, diastolic murmur, rubs, gallop, clicks GI/Abdominal exam: Present: soft, normal bowel sounds. Absent: distended, tenderness, guarding, rebound, rigid Extremities exam: Present: normal inspection, full ROM, normal capillary refill. Absent: tenderness, pedal edema, joint swelling, calf tenderness Back exam: Present: normal inspection Neurological exam: Present: alert, oriented X3, CN II-XII intact Psychiatric exam: Present: normal affect, normal mood Skin exam: Present: warm, dry, intact, normal color. Absent: rash Course Vital Signs 11/29/19 11/29/19 15:35 16:03 Temperature 98.2 F Pulse Rate 87 81 Respiratory 18 18 Rate Blood Pressure 114/79 O2 Sat by Pulse 99 97 Oximetry - Reevaluation(s) Reevaluation #1: 11/29/19 16:36 Complain of increased pain and repeat EKG showed normal sinus rhythm of 86 irritable 138 QRS 72 QT since QTC 382/457 this is a normal-appearing EKG. Chest Pain MDM - MDM I did review the imaging and report no acute findings. The patient have recurrent chest pain but no EKG changes. Due to the presentation there appears be 2 different components to the pain he'll be admitted with cardiology consultation. The case is discussed with Dr. Carranza Disposition Clinical Impression: Chest pain Disposition: ADMITTED IP TO THIS HOSP Condition: Stable Referrals: Malena Milner MD [Primary Care Provider] - 1-2 days
[2019-11-29 16:11] LABS: ALT 17 U/L (4-34); AST 25 U/L (14-36); African American GFR (CKD) >90 (>60 ml/min/1.73 sqM); Albumin 4.4 g/dL (3.5-5.0); Alkaline Phosphatase 62 U/L (38-126); Anion Gap 8 mmol/L; Blood Urea Nitrogen 8 mg/dL (7-17); Calcium 9.7 mg/dL (8.4-10.2); Carbon Dioxide 21 mmol/L (22-30); Chloride 108 mmol/L (98-107); Creatine Kinase 107 U/L (30-135); Glucose 93 mg/dL (74-99); Magnesium 1.8 mg/dL (1.6-2.3); Non-African American GFR(CKD) >90 (>60 ml/min/1.73 sqM); Potassium 4.3 mmol/L (3.5-5.1); Sodium 137 mmol/L (137-145); Total Bilirubin 0.6 mg/dL (0.2-1.3); Total Protein 7.3 g/dL (6.3-8.2)
--- NOTE | 2019-11-29 16:13 | XR ---
EXAMINATION TYPE: XR chest 2V DATE OF EXAM: 11/29/2019 COMPARISON: 07/13/2019 HISTORY: Chest pain TECHNIQUE: 2 views. Heart and mediastinum are normal. Lungs are clear. Diaphragm is normal. Bony thorax appears normal. IMPRESSION: Normal chest. No adverse change.
[2019-11-29 16:14] LABS: D-Dimer 0.33 mg/L FEU (<0.60); INR 0.9 (<1.2); Partial Thromboplastin Time 23.8 sec (22.0-30.0); Prothrombin Time 9.5 sec (9.0-12.0)
[2019-11-29] MEDS ORDERED: KETOROLAC 15 MG/ML 1 ML VIAL IVP STA (16:20)
[2019-11-29] MEDS ORDERED: ACETAMINOPHEN TAB 500 MG TAB PO STA (17:01)
[2019-11-29] MEDS ORDERED: NITROGLYCERIN SL TABS 0.4 MG TAB SUBLINGUAL PRN (17:03)
[2019-11-29] MEDS ORDERED: CYCLOBENZAPRINE 10 MG TAB PO PRN (17:04)
[2019-11-29] MEDS ORDERED: SODIUM CHLORIDE 0.9% 1,000 ML IV SCH (17:15)
[2019-11-29 17:59] VITALS: RESP 16; TEMP 98.1
[2019-11-29 19:46] VITALS: BP 94/58; PULSE 76
[2019-11-29] MEDS ORDERED: ETODOLAC 400 MG TAB PO SCH (21:00)
[2019-11-29] MEDS ORDERED: DIVALPROEX 250 MG TABLET.DR PO SCH (21:00)
[2019-11-30] MEDS ORDERED: ASPIRIN 325 MG TAB PO SCH (09:00)
== END 2019-11-29 21:00 | disposition left against medical advice (07) ==
LOC: EC 15:34 → 3NCARDOBS 17:03
PROVIDERS: ADMIT Internal Medicine; ATTEND Internal Medicine
DX: R07.89 Other chest pain (principal); M19.90 Unspecified osteoarthritis, unspecified site; F41.9 Anxiety disorder, unspecified; G40.909 Epilepsy, unspecified, not intractable, without status epilepticus; G43.909 Migraine, unspecified, not intractable, without status migrainosus; K22.70 Barrett's esophagus without dysplasia; G56.03 Carpal tunnel syndrome, bilateral upper limbs; Z79.899 Other long term (current) drug therapy; Z88.5 Allergy status to narcotic agent; Z88.8 Allergy status to other drugs, medicaments and biological substances; Z91.018 Allergy to other foods; Z86.73 Personal history of transient ischemic attack (TIA), and cerebral infarction without residual deficits; Z87.442 Personal history of urinary calculi; Z87.891 Personal history of nicotine dependence; Z90.49 Acquired absence of other specified parts of digestive tract; Z90.710 Acquired absence of both cervix and uterus; Z83.3 Family history of diabetes mellitus; Z82.49 Family history of ischemic heart disease and other diseases of the circulatory system; Z83.2 Family history of diseases of the blood and blood-forming organs and certain disorders involving the immune mechanism
CPT/HCPCS: 96361; 96374; 99285; 36415; 93005; 85379; 83880; 80053; 82550; 83690; 83735; 84484; 85025; 85610; 85730; 71046; G0378; J1885

== ENCOUNTER 2020-01-05 16:51 | Observation (INO) | payer OTHER ==
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
[2020-01-05 17:21] LABS: Glucose,Whole Blood 110 mg/dL (75-99)
--- NOTE | 2020-01-05 17:38 | CT ---
EXAMINATION TYPE: CT brain wo con for TPA DATE OF EXAM: 01/05/2020 COMPARISON: 06/02/2018 HISTORY: Syncopal episode. Left sided heaviness. CT DLP: 1069.8 mGycm Automated exposure control for dose reduction was used. Ventricles have normal size. There is no mass effect nor midline shift. There is no sign of intracran ial hemorrhage. Calvarium is intact. There is no evidence of cerebral edema. IMPRESSION: Negative unenhanced head CT scan. There is improvement in right maxillary sinusitis compared to old e xam.
[2020-01-05 17:46] LABS: Basophils # (A) 0.1 k/uL (0-0.2); Basophils % (A) 1 %; Eosinophils # (A) 0.6 k/uL (0-0.7); Eosinophils % (A) 6 %; HCT 52.3 % (34.0-46.0); Lymphocytes # (A) 1.9 k/uL (1.0-4.8); Lymphocytes % (A) 18 %; MCH 32.6 pg (25.0-35.0); MCHC 32.6 g/dL (31.0-37.0); MCV 100.1 fL (80.0-100.0); Mean Platelet Volume 9.6; Monocytes # (A) 0.5 k/uL (0-1.0); Monocytes % (A) 5 %; Neutrophils % (A) 69 %; Platelet Count 237 k/uL (150-450); RBC 5.22 m/uL (3.80-5.40); RDW 13.5 % (11.5-15.5); WBC 10.2 k/uL (3.8-10.6)
[2020-01-05] MEDS ORDERED: MORPHINE SULFATE 4 MG/ML SYRINGE IVP STA (17:53)
[2020-01-05] MEDS ORDERED: SODIUM CHLORIDE 0.9% 1,000 ML IV ONE (17:53)
[2020-01-05 17:56] LABS: INR 0.9 (<1.2); Partial Thromboplastin Time 23.3 sec (22.0-30.0); Prothrombin Time 9.7 sec (9.0-12.0)
[2020-01-05 17:58] LABS: ALT 14 U/L (4-34); AST 21 U/L (14-36); African American GFR (CKD) >90 (>60 ml/min/1.73 sqM); Albumin 3.5 g/dL (3.5-5.0); Alkaline Phosphatase 52 U/L (38-126); Anion Gap 8 mmol/L; Blood Urea Nitrogen 6 mg/dL (7-17); Calcium 8.8 mg/dL (8.4-10.2); Carbon Dioxide 22 mmol/L (22-30); Chloride 108 mmol/L (98-107); Glucose 109 mg/dL (74-99); Non-African American GFR(CKD) >90 (>60 ml/min/1.73 sqM); Sodium 138 mmol/L (137-145); Total Bilirubin 0.4 mg/dL (0.2-1.3)
--- NOTE | 2020-01-05 18:21 | CT ---
EXAMINATION TYPE: CT angio head neck DATE OF EXAM: 01/05/2020 COMPARISON: 07/13/2019 HISTORY: Syncopal episode. Left sided heaviness. CT DLP: 577.5 mGycm Automated exposure control for dose reduction was used. CONTRAST: Performed with IV Contrast, patient injected with 65 mL of Isovue 370. There are 3-D post processed images. There is normal branching pattern of the great vessels on the aortic arch. There is bilateral arteria l flow in the subclavian arteries. There is arterial flow in the common internal and external carotid arteries bilaterally. There is arterial flow in both vertebral arteries. There is arterial flow in t he vertebrobasilar artery system. There is no evidence of carotid or vertebral artery aneurysm or dissection. Carotid artery bifurcatio ns appear widely patent. There is arterial flow in the anterior middle and posterior cerebral arteries. There is normal contra st opacification of the venous sinuses. I see no evidence of intracranial aneurysm or neovascularity. There is no mass effect. There is no sign of intracranial arterial stenosis. IMPRESSION: Negative CT angiogram of the neck. Negative CT angiogram of the brain. Maxillary and ethmoid sinusitis is noted. No change compared to old exam.
--- NOTE | 2020-01-05 18:59 | XR ---
EXAMINATION TYPE: XR chest 2V DATE OF EXAM: 01/05/2020 COMPARISON: 11/29/2019 HISTORY: Left side numbness TECHNIQUE: FINDINGS: Heart is normal. Lungs are clear of infiltrate. There is no heart failure. There are no hil ar masses. There are chest leads. Bony thorax is intact. IMPRESSION: No active cardiopulmonary disease. Normal heart. No change.
[2020-01-05] MEDS ORDERED: NALOXONE 0.4 MG/ML 1 ML VIAL IV PRN (19:22)
[2020-01-05] MEDS ORDERED: ASPIRIN 81 MG PO STA (19:22)
[2020-01-05] MEDS ORDERED: MECLIZINE 12.5 MG TAB PO STA (19:27)
[2020-01-05] MEDS: SODIUM CHLORIDE 0.9% 1,000 ML IV SCH ×2 (19:43→21:04)
[2020-01-05] MEDS ORDERED: ACETAMINOPHEN TAB 500 MG TAB PO PRN (21:22)
[2020-01-05] MEDS ORDERED: ALPRAZolam 0.25 MG TAB PO PRN (21:23)
[2020-01-05] MEDS ORDERED: TEMAZEPAM 15 MG CAP PO PRN (21:23)
[2020-01-05] MEDS: ATORVASTATIN 20 MG TAB PO SCH (22:47)
[2020-01-05] MEDS: HYDROcodone/APAP 5-325MG 1 EACH TAB PO PRN (22:52)
--- NOTE | 2020-01-05 23:28 | HP ---
HISTORY AND PHYSICAL DATE OF SERVICE: 01/05/2020 CHIEF COMPLAINTS: Dizziness and weakness. HISTORY OF PRESENT ILLNESS: This 44-year-old woman with a past medical history of multiple medical problems, including CVA, TIA, history of DJD, seizure disorder, history of migraines, history of blackouts, history of cholecystomy, being followed by Dr. Malena Milner in the outpatient setting, was previously admitted here last month, and the patient signed out AMA. Prior to that, the patient had symptoms of TIA. Today the patient felt dizzy and subsequently patient was complaining of left leg weakness, and the patient came to [facility] and was admitted for evaluation and treatment. The patient was apparently taking Verapamil. The patient has a history of heart disease also. There is no history of any fever, rigor or chills. No history of headache, loss of consciousness, seizures. Evaluation in the ED, including brain CT scan and a CT angio, was negative. Sinusitis was noted. Neurology consultation has been sought. PAST MEDICAL HISTORY: History of CVA, TIA, DJD, seizure disorder, history of migraine, appendectomy, cholecystectomy. MEDICATIONS: Medications prior to admission include Tylenol p.r.n. ALLERGIES: CODEINE, BENADRYL, SOLU-MEDROL, ONION. FAMILY HISTORY: History of diabetes mellitus, hypertension, lupus in the family. SOCIAL HISTORY: History of smoking, continued ongoing. REVIEW OF SYSTEMS: ENT: No diminished hearing. No diminished vision. Otherwise as mentioned earlier. CARDIOVASCULAR SYSTEM: No angina, palpitations. RESPIRATORY SYSTEM: No cough, hemoptysis. GI: No nausea, vomiting. : No dysuria or retention. NERVOUS SYSTEM: As mentioned earlier. ALLERGY/IMMUNOLOGY: No asthma, hayfever. MUSCULOSKELETAL: As mentioned earlier. HEMATOLOGY/ONCOLOGY: No history of anemia. ENDOCRINE: No history of diabetes, hypothyroidism. CONSTITUTIONAL: As mentioned earlier. DERMATOLOGY: Negative. RHEUMATOLOGY: Negative. PSYCHIATRY: As mentioned earlier. PHYSICAL EXAMINATION: Patient alert and oriented x3. Pulse 77, blood pressure 110/77, respiration 20, temperature 98.1, pulse ox 97% on 2 L. HEENT: Conjunctivae normal. NECK: No jugular venous distention. CARDIOVASCULAR SYSTEM: S1, S2 muffled. RESPIRATORY SYSTEM: Breath sounds diminished at the bases. No rhonchi. No crackles. ABDOMEN: Soft, non-tender. No mass palpable. LEGS: No edema. No swelling. NERVOUS SYSTEM: Higher functions as mentioned earlier. Cranial nerves 2 thru 12 grossly intact. No nystagmus. No diplopia. No finger-nose incoordination. Power is slightly diminished on the left side, left upper and lower limbs, about grade 4. Otherwise, no sensory abnormalities. LYMPHATICS: No lymph node palpable in neck, axillae or groin. L JOINTS: No active deforming arthropathy. LABS: WBC 10.2, hemoglobin 17, MCV 100.1, sodium 138, potassium 4. Glucose 109. Total protein is 6. ASSESSMENT: 1. Dizziness and weakness, possibly acute transient ischemic attack involving the right hemisphere. 2. Mild polycythemia. 3. Increased mean corpuscular volume. 4. History of nicotine dependence. 5. Obesity with body mass index of 32.8. 6. History of cerebrovascular accident, transient ischemic attack. 7. History of degenerative joint disease. 8. Seizure disorder. 9. History of migraines. 10.History of blackouts. 11.History of cholecystectomy. 12.History of anxiety. 13.History of smoking. 14.FULL CODE. RECOMMENDATIONS AND DISCUSSION: In this 44-year-old woman who presented with multiple complex medical issues, at this time I recommend to continue current medications, continue symptomatic treatment. Complete the neurovascular workup. Two-D echo with Doppler. Neurology consultation. Cardiology consultation. The patient has been seeing Dr. Laura in the outpatient setting. Neuro checks. Resume the home medications. COVID-19 has been requested because the patient has some nasal discharge at this time. Guarded prognosis. Further recommendations to follow. A copy of this dictation is being forwarded to Dr. Malena Milner, who is the primary physician. MMODL / IJN: [id number] /
[2020-01-06 04:47] LABS: Appearance,Urine Clear (Clear); Bilirubin,Urine Negative (Negative); Blood,Urine Negative (Negative); Color,Urine Light Yellow; Glucose,Urine (UA) Negative (Negative); Ketones,Urine Negative (Negative); Leukocyte Esterase,Urine Negative (Negative); Nitrite,Urine Negative (Negative); Protein,Urine Negative (Negative); Specific Gravity,Urine 1.012 (1.001-1.035); Urobilinogen,Urine <2.0 mg/dL (<2.0)
[2020-01-06 04:59] LABS: Amphetamine Screen,Urine Not Detected (NotDetected); Barbiturate Screen,Urine Not Detected (NotDetected); Benzodiazepines Screen,Urine Detected (NotDetected); Cocaine Screen,Urine Not Detected (NotDetected); Methadone Screen, Urine Not Detected (NotDetected); Opiate Screen,Urine Detected (NotDetected); Oxycodone Screen, Urine Not Detected (NotDetected); Phencyclidine Screen,Urine Not Detected (NotDetected); Tricyclic Antidepressant,Urine Not Detected (NotDetected); Urn Cannabinoid Scrn Not Detected (NotDetected)
[2020-01-06] MEDS ORDERED: PANTOPRAZOLE 40 MG TABLET PO SCH (07:30)
[2020-01-06 08:19] LABS: Basophils # (A) 0.1 k/uL (0-0.2); Basophils % (A) 1 %; Eosinophils # (A) 0.4 k/uL (0-0.7); Eosinophils % (A) 8 %; HCT 43.1 % (34.0-46.0); Lymphocytes # (A) 1.6 k/uL (1.0-4.8); Lymphocytes % (A) 28 %; MCH 32.4 pg (25.0-35.0); MCHC 31.5 g/dL (31.0-37.0); MCV 102.8 fL (80.0-100.0); Macrocytosis Slight; Mean Platelet Volume 9.1; Monocytes # (A) 0.3 k/uL (0-1.0); Monocytes % (A) 5 %; Neutrophils # (A) 3.3 k/uL (1.3-7.7); Neutrophils % (A) 56 %; Platelet Count 200 k/uL (150-450); RBC 4.19 m/uL (3.80-5.40); RDW 13.5 % (11.5-15.5); WBC 5.8 k/uL (3.8-10.6)
[2020-01-06 08:22] LABS: African American GFR (CKD) >90 (>60 ml/min/1.73 sqM); Anion Gap 1 mmol/L; Blood Urea Nitrogen 9 mg/dL (7-17); Calcium 7.9 mg/dL (8.4-10.2); Carbon Dioxide 28 mmol/L (22-30); Chloride 108 mmol/L (98-107); Cholesterol 137 mg/dL (<200); Glucose 93 mg/dL (74-99); HDL Cholesterol 26 mg/dL (40-60); HGB 13.6 gm/dL (11.4-16.0); LDL Cholesterol,Calculated 76 mg/dL (0-99); Non-African American GFR(CKD) >90 (>60 ml/min/1.73 sqM); Potassium 4.2 mmol/L (3.5-5.1); Sodium 137 mmol/L (137-145); Triglycerides 174 mg/dL (<150)
[2020-01-06 08:46] VITALS: RESP 16; TEMP 98.2
[2020-01-06] MEDS ORDERED: ASPIRIN 325 MG TAB PO SCH (09:00)
[2020-01-06] MEDS ORDERED: HEPARIN SODIUM,PORCINE 5,000 UNIT/ML 1 ML VIAL SQ SCH (09:00)
[2020-01-06] MEDS: ATORVASTATIN 20 MG TAB PO SCH (09:54)
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
[2020-01-06] MEDS: HYDROcodone/APAP 5-325MG 1 EACH TAB PO PRN (14:01)
--- NOTE | 2020-01-06 14:19 | PN ---
PROGRESS NOTE DATE OF SERVICE: 01/06/2020 This is a 44-year-old woman who was admitted with dizziness and weakness, is being closely monitored at this time. The patient was also seen by Cardiology. Neurology evaluation is also pending at this time. The patient also had syncopal episodes. A 2D echo showed a normal ejection fraction. PHYSICAL EXAMINATION: Alert orient x3, pulse is 78, blood pressure is 101/70, respirations 18, temperature 98.2, pulse ox 98% on room air. No orthostatic changes. HEENT: Conjunctivae normal. NECK: No jugular venous distension. CARDIOVASCULAR SYSTEM: S1, S2, muffled. RESPIRATION: Breath sounds diminished at the bases, no rhonchi, no crackles. ABDOMEN: Soft, nontender. LEGS: No edema. No swelling. NERVOUS SYSTEM: Minimal weakness on the left side. LABS: WBC 5.8, hemoglobin 13.6, sodium 137, potassium 4.2, with a glucose 174. UA noted. Drug screen is benzodiazepine and opiates. ASSESSMENT: 1. Dizziness and weakness, possible acute TIA involving the right hemisphere. 2. Syncope for evaluation. 3. Mild polycythemia, improved. 4. Increased MCV. 5. History of nicotine dependence. 6. Obesity with body mass index 32.8. 7. History of cerebrovascular accident, transient ischemic attack. 8. History of degenerative joint disease. 9. History of seizure disorder. 10.History of migraines, history of blackouts. 11.History of cholecystectomy. 12.History of anxiety. 13.History of smoking. 14.FULL CODE. RECOMMENDATION: Recommend to continue current management and symptomatic treatment. Otherwise, at this time I would recommend antiplatelet agents. Complete neurovascular followup. Lipitor has been added to the current regimen. Neurology evaluation, possible MRI. Guarded prognosis. Further recommendations to follow. Cardiology is recommending echocardiogram and monitor final . 1. Please send a copy of this. MMODL / IJN: [id number] / MTDD
[2020-01-06 14:29] VITALS: BP 144/82; PULSE 94
[2020-01-06] MEDS ORDERED: ATORVASTATIN 20 MG TAB PO SCH (21:00)
--- NOTE | 2020-01-08 05:09 | DS ---
DISCHARGE SUMMARY FINAL DIAGNOSES: 1. Dizziness and weakness, possible acute transient ischemic attack involving the right hemisphere. 2. Syncope possibly vasovagal. 3. Mild polycythemia, improved. 4. Increased MCV. 5. History of nicotine dependence. 6. History of body mass index of 32.8 with obesity. 7. History of cerebrovascular accident, transient ischemic attack. 8. History of degenerative joint disease. 9. History of seizure disorders. 10.Migraine. 11.History of blackouts. 12.History of cholecystectomy. 13.History of anxiety. 14.History of smoking. 15.Acute sinusitis. 16.FULL CODE. DISCHARGE DISPOSITION: The patient will be discharged in stable condition with guarded prognosis. HISTORY OF PRESENT ILLNESS: This 44-year-old woman with a past medical history of multiple medical problems admitted with dizziness and weakness multiple symptomatology. Neurology saw the patient. Neurovascular workup was basically stable. TIA was diagnosed. Patient improved significantly. The antibiotics are recommended by Neurology and also recommended close follow up with Dr. Malena Milner in the outpatient setting. On exam, vitals are stable. CARDIOVASCULAR: S1, S2 muffled. ABDOMEN: Soft. NERVOUS SYSTEM: No focal deficits. DISCHARGE ADVICE: 1. Diet is cardiac. 2. Activity limited until followup. 3. Follow up with Dr. Malena Milner in 1 to 2 days. 4. Follow up with Neurology as recommended. MEDICATIONS: 1. Tylenol p.r.n. 2. Augmentin 875 one p.o. b.i.d. for 10 days for sinusitis. 3. Ecotrin 81 mg p.o. daily. 4. Lipitor 20 mg p.o. daily. MMODL / IJN: [id number] /
== END 2020-01-06 17:10 | disposition home or self-care (01) ==
LOC: EC 16:51 → 3NCARDOBS 19:24 → 1SOBS 19:47
PROVIDERS: ADMIT Hospitalist; ATTEND Hospitalist
DX: R55 Syncope and collapse (principal); R42 Dizziness and giddiness; J01.40 Acute pansinusitis, unspecified; R53.1 Weakness; D75.1 Secondary polycythemia; R61 Generalized hyperhidrosis; R00.2 Palpitations; G40.909 Epilepsy, unspecified, not intractable, without status epilepticus; H55.09 Other forms of nystagmus; M19.90 Unspecified osteoarthritis, unspecified site; G43.909 Migraine, unspecified, not intractable, without status migrainosus; F41.9 Anxiety disorder, unspecified; Z79.899 Other long term (current) drug therapy; E66.9 Obesity, unspecified; Z68.32 Body mass index [BMI] 32.0-32.9, adult; G56.03 Carpal tunnel syndrome, bilateral upper limbs; F17.210 Nicotine dependence, cigarettes, uncomplicated; Z20.828 Contact with and (suspected) exposure to other viral communicable diseases; Z86.73 Personal history of transient ischemic attack (TIA), and cerebral infarction without residual deficits; Z88.5 Allergy status to narcotic agent; Z88.8 Allergy status to other drugs, medicaments and biological substances; Z91.018 Allergy to other foods; Z87.442 Personal history of urinary calculi; Z90.49 Acquired absence of other specified parts of digestive tract; Z90.710 Acquired absence of both cervix and uterus; Z83.3 Family history of diabetes mellitus; Z82.49 Family history of ischemic heart disease and other diseases of the circulatory system; Z82.69 Family history of other diseases of the musculoskeletal system and connective tissue
CPT/HCPCS: 96372; 96361; 96374; 99285; 36415; 93005; 80061; 80053; 80048; 84484; 85025 ×2; 85610; 85730; 81003; 80306; 71046; 70496; 70450; 70498; G0378 ×2; U0003; J2270; J1644; Q9967

== ENCOUNTER 2020-03-12 12:57 | Emergency (ER) | payer OTHER ==
[2020-03-12 13:07] VITALS: TEMP 98.9
[2020-03-12] MEDS ORDERED: ONDANSETRON 4 MG/2 ML VIAL IVP STA (13:17)
[2020-03-12] MEDS ORDERED: SODIUM CHLORIDE 0.9% 1,000 ML IV STA (13:17)
[2020-03-12] MEDS ORDERED: KETOROLAC 15 MG/ML 1 ML VIAL IVP STA (13:17)
[2020-03-12 13:45] LABS: ALT 25 U/L (4-34); AST 32 U/L (14-36); African American GFR (CKD) >90 (>60 ml/min/1.73 sqM); Albumin 4.5 g/dL (3.5-5.0); Alkaline Phosphatase 58 U/L (38-126); Anion Gap 5 mmol/L; Blood Urea Nitrogen 10 mg/dL (7-17); Calcium 9.8 mg/dL (8.4-10.2); Carbon Dioxide 23 mmol/L (22-30); Chloride 107 mmol/L (98-107); Glucose 103 mg/dL (74-99); Lipase 203 U/L (23-300); Non-African American GFR(CKD) >90 (>60 ml/min/1.73 sqM); Sodium 135 mmol/L (137-145); Total Bilirubin 0.6 mg/dL (0.2-1.3); Total Protein 7.6 g/dL (6.3-8.2)
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
[2020-03-12 13:47] LABS: Potassium 4.6 mmol/L (3.5-5.1)
[2020-03-12 13:52] LABS: Basophils # (A) 0.1 k/uL (0-0.2); Basophils % (A) 1 %; Eosinophils # (A) 0.4 k/uL (0-0.7); Eosinophils % (A) 4 %; HCT 43.8 % (34.0-46.0); HGB 15.4 gm/dL (11.4-16.0); Lymphocytes # (A) 2.2 k/uL (1.0-4.8); Lymphocytes % (A) 25 %; MCHC 35.1 g/dL (31.0-37.0); Mean Platelet Volume 9.1; Monocytes # (A) 0.4 k/uL (0-1.0); Monocytes % (A) 4 %; Neutrophils # (A) 5.8 k/uL (1.3-7.7); Neutrophils % (A) 64 %; Platelet Count 247 k/uL (150-450); RBC 4.52 m/uL (3.80-5.40); RDW 12.6 % (11.5-15.5)
[2020-03-12 14:00] LABS: Appearance,Urine Clear (Clear); Bilirubin,Urine Negative (Negative); Blood,Urine Negative (Negative); Color,Urine Yellow; Glucose,Urine (UA) Negative (Negative); Ketones,Urine Trace (Negative); Leukocyte Esterase,Urine Negative (Negative); Nitrite,Urine Negative (Negative); Protein,Urine Trace (Negative); Specific Gravity,Urine 1.031 (1.001-1.035)
[2020-03-12] MEDS ORDERED: HYDROmorphone 0.5 MG/0.5 ML SYRINGE IVP STA (14:13)
--- NOTE | 2020-03-12 14:37 | CT ---
EXAMINATION TYPE: CT abdomen pelvis w con DATE OF EXAM: 03/12/2020 COMPARISON: 12/30/2018 HISTORY: Rt flank pain, groin pain CT DLP: 1286 mGycm CONTRAST: CT scan of the abdomen and pelvis is performed without Oral Contrast and with IV Contrast, patient in jected with 100 mL of Isovue 300. FINDINGS: LUNG BASES-: No visible nodule. No infiltrate. LIVER/GB: The gallbladder surgically absent. No space occupying hepatic lesion. Biliary tree is of normal caliber. PANCREAS: No inflammation. No distinct mass. SPLEEN: No splenic enlargement. No lesion seen. ADRENALS: No nodule. No thickening. KIDNEYS/BLADDER: No hydronephrosis. No nephrolithiasis. No distinct renal mass. Urinary bladder g rossly unremarkable. BOWEL: The appendix is surgically absent. Mild fluid distention of small bowel and small bowel wall thickening may reflect a degree of enteritis. Correlate clinically. GENITAL ORGANS: Hysterectomy changes noted. LYMPH NODES: No greater than 1cm abdominal or pelvic lymph nodes are appreciated. AORTA: No significant abnormality. OSSEOUS STRUCTURES: No significant abnormality is seen. OTHER: No significant additional abnormality is seen. IMPRESSION: 1. Mild fluid distention of small bowel and small bowel wall thickening may reflect a degree of enter itis. Correlate clinically.
[2020-03-12 15:24] VITALS: BP 127/82; PULSE 78; RESP 18
== END 2020-03-12 15:23 | disposition home or self-care (01) ==
LOC: EC 12:57
DX: R10.30 Lower abdominal pain, unspecified (principal); K63.89 Other specified diseases of intestine; M19.90 Unspecified osteoarthritis, unspecified site; I20.9 Angina pectoris, unspecified; G40.909 Epilepsy, unspecified, not intractable, without status epilepticus; Z79.899 Other long term (current) drug therapy; Z88.5 Allergy status to narcotic agent; Z88.8 Allergy status to other drugs, medicaments and biological substances; Z91.018 Allergy to other foods; Z87.891 Personal history of nicotine dependence; Z90.89 Acquired absence of other organs; Z90.49 Acquired absence of other specified parts of digestive tract; Z90.710 Acquired absence of both cervix and uterus; Z98.51 Tubal ligation status; Z86.73 Personal history of transient ischemic attack (TIA), and cerebral infarction without residual deficits; Z87.442 Personal history of urinary calculi
CPT/HCPCS: 36415; 80053; 83690; 85025; 81003; 74177; 99284; J2405; J1885; J1170; Q9967

== ENCOUNTER 2020-03-21 11:45 | Emergency (ER) | payer OTHER ==
[2020-03-21 11:49] VITALS: RESP 18; TEMP 98.1
[2020-03-21] MEDS ORDERED: NITROGLYCERIN OINT 1 INCH/GM PACKET TOPICAL STA (12:07)
[2020-03-21] MEDS ORDERED: ASPIRIN 81 MG PO STA (12:07)
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
[2020-03-21 12:17] LABS: Basophils # (A) 0.1 k/uL (0-0.2); Basophils % (A) 1 %; Eosinophils # (A) 0.5 k/uL (0-0.7); Eosinophils % (A) 5 %; HCT 44.7 % (34.0-46.0); HGB 15.1 gm/dL (11.4-16.0); Lymphocytes # (A) 2.2 k/uL (1.0-4.8); Lymphocytes % (A) 20 %; MCH 33.1 pg (25.0-35.0); MCHC 33.9 g/dL (31.0-37.0); MCV 97.7 fL (80.0-100.0); Mean Platelet Volume 8.6; Monocytes # (A) 0.4 k/uL (0-1.0); Monocytes % (A) 4 %; Neutrophils # (A) 7.5 k/uL (1.3-7.7); Neutrophils % (A) 68 %; Platelet Count 255 k/uL (150-450); RBC 4.57 m/uL (3.80-5.40); RDW 12.9 % (11.5-15.5); WBC 11.1 k/uL (3.8-10.6)
[2020-03-21 12:31] LABS: ALT 27 U/L (4-34); AST 27 U/L (14-36); African American GFR (CKD) >90 (>60 ml/min/1.73 sqM); Albumin 4.6 g/dL (3.5-5.0); Alkaline Phosphatase 62 U/L (38-126); Anion Gap 9 mmol/L; Blood Urea Nitrogen 9 mg/dL (7-17); Calcium 9.9 mg/dL (8.4-10.2); Carbon Dioxide 22 mmol/L (22-30); Chloride 107 mmol/L (98-107); Glucose 111 mg/dL (74-99); Non-African American GFR(CKD) >90 (>60 ml/min/1.73 sqM); Potassium 4.1 mmol/L (3.5-5.1); Sodium 138 mmol/L (137-145); Total Bilirubin 0.5 mg/dL (0.2-1.3)
--- NOTE | 2020-03-21 12:33 | XR ---
EXAMINATION TYPE: XR chest 2V DATE OF EXAM: 03/21/2020 COMPARISON: 01/05/2020 HISTORY: 44-year-old female with chest pain TECHNIQUE: PA and lateral views FINDINGS: The cardiomediastinal silhouette, aorta, and pulmonary vasculature are within normal limits. Mild int erstitial prominence and mild peribronchial cuffing. Otherwise, lungs and pleural spaces are clear. IMPRESSION: Findings may reflect bronchitis or chronic asthma. No focal infiltrate.
[2020-03-21 12:34] LABS: D-Dimer 0.37 mg/L FEU (<0.60); INR 0.9 (<1.2); Partial Thromboplastin Time 23.9 sec (22.0-30.0); Prothrombin Time 9.5 sec (9.0-12.0)
[2020-03-21] MEDS ORDERED: ACETAMINOPHEN TAB 500 MG TAB PO PRN (13:38)
[2020-03-21] MEDS ORDERED: DICYCLOMINE 20 MG TAB PO PRN (13:38)
[2020-03-21] MEDS ORDERED: NITROGLYCERIN SL TABS 0.4 MG TAB SUBLINGUAL PRN (13:48)
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
[2020-03-21 14:16] VITALS: BP 108/89; PULSE 86
[2020-03-21] MEDS ORDERED: NITROGLYCERIN OINT 1 INCH/GM PACKET TOPICAL SCH (18:00)
[2020-03-21] MEDS ORDERED: ATORVASTATIN 40 MG TAB PO SCH (21:00)
[2020-03-21] MEDS ORDERED: DIVALPROEX 250 MG TABLET.DR PO SCH (21:00)
[2020-03-21] MEDS ORDERED: FAMOTIDINE 20 MG/2 ML VIAL IV SCH (21:00)
[2020-03-21] MEDS ORDERED: HEPARIN SODIUM,PORCINE 5,000 UNIT/ML 1 ML VIAL SQ SCH (21:00)
[2020-03-22] MEDS ORDERED: NON FORMULARY DRUG (Aspirin Ec 81 MG Tablet.Dr) PO SCH (09:00)
[2020-03-22] MEDS ORDERED: ASPIRIN 325 MG TAB PO SCH (09:00)
[2020-03-22] MEDS ORDERED: ISOSORBIDE MONONITRATE ER 30 MG TAB.ER.24H PO SCH (09:00)
[2020-03-22] MEDS ORDERED: amLODIPine 5 MG TAB PO SCH (09:00)
== END 2020-03-21 14:17 | disposition left against medical advice (07) ==
LOC: EC 11:45 → 1SOBS 13:48 → UNDOADMOB 13:48 → EC 14:17
DX: R07.9 Chest pain, unspecified (principal); G40.909 Epilepsy, unspecified, not intractable, without status epilepticus; Z53.29 Procedure and treatment not carried out because of patient's decision for other reasons; E78.5 Hyperlipidemia, unspecified; M19.90 Unspecified osteoarthritis, unspecified site; Z87.19 Personal history of other diseases of the digestive system; Z87.442 Personal history of urinary calculi; Z86.73 Personal history of transient ischemic attack (TIA), and cerebral infarction without residual deficits; Z86.69 Personal history of other diseases of the nervous system and sense organs; Z90.710 Acquired absence of both cervix and uterus; Z79.82 Long term (current) use of aspirin; Z79.899 Other long term (current) drug therapy; Z88.5 Allergy status to narcotic agent; Z88.8 Allergy status to other drugs, medicaments and biological substances; Z91.018 Allergy to other foods; Z87.891 Personal history of nicotine dependence
CPT/HCPCS: 36415; 71046; 80053; 83735; 84484; 85025; 85379; 85610; 85730; 93005; 99285

== ENCOUNTER 2020-06-04 13:38 | Emergency (ER) | payer OTHER ==
[2020-06-04 13:41] VITALS: TEMP 97.9
[2020-06-04] MEDS ORDERED: SODIUM CHLORIDE 0.9% 1,000 ML IV STA (14:24)
[2020-06-04] MEDS ORDERED: ONDANSETRON 4 MG/2 ML VIAL IVP STA (14:24)
[2020-06-04] MEDS ORDERED: HYDROmorphone 1 MG/ML 1 ML SYRINGE IVP STA ×2 (14:24→17:01)
[2020-06-04] MEDS ORDERED: MAG HYDROX/AL HYDROX/SIMETH 30 ML, HYOSCYAMINE ELIXIR 10 ML, LIDOCAINE VISCOUS 2% 10 ML PO STA ×3 (14:25)
[2020-06-04] MEDS ORDERED: FAMOTIDINE 20 MG/2 ML VIAL IV STA (14:25)
[2020-06-04 15:16] LABS: Basophils # (A) 0.1 k/uL (0-0.2); Basophils % (A) 1 %; Eosinophils # (A) 0.4 k/uL (0-0.7); Eosinophils % (A) 4 %; HCT 45.2 % (34.0-46.0); Lymphocytes # (A) 2.2 k/uL (1.0-4.8); Lymphocytes % (A) 22 %; MCH 33.5 pg (25.0-35.0); MCHC 35.3 g/dL (31.0-37.0); Mean Platelet Volume 8.6; Monocytes # (A) 0.4 k/uL (0-1.0); Monocytes % (A) 4 %; Neutrophils # (A) 6.8 k/uL (1.3-7.7); Neutrophils % (A) 68 %; Platelet Count 243 k/uL (150-450); RBC 4.76 m/uL (3.80-5.40); RDW 12.7 % (11.5-15.5); WBC 9.9 k/uL (3.8-10.6)
[2020-06-04 15:29] LABS: ALT 35 U/L (4-34); AST 32 U/L (14-36); African American GFR (CKD) >90 (>60 ml/min/1.73 sqM); Albumin 5.1 g/dL (3.5-5.0); Alkaline Phosphatase 72 U/L (38-126); Anion Gap 11 mmol/L; Blood Urea Nitrogen 10 mg/dL (7-17); Calcium 10.1 mg/dL (8.4-10.2); Carbon Dioxide 26 mmol/L (22-30); Chloride 103 mmol/L (98-107); Glucose 101 mg/dL (74-99); Lipase 135 U/L (23-300); Non-African American GFR(CKD) >90 (>60 ml/min/1.73 sqM); Potassium 4.3 mmol/L (3.5-5.1); Sodium 140 mmol/L (137-145); Total Bilirubin 0.4 mg/dL (0.2-1.3); Total Protein 8.2 g/dL (6.3-8.2)
[2020-06-04 15:31] LABS: INR 0.9 (<1.2); Partial Thromboplastin Time 23.1 sec (22.0-30.0); Prothrombin Time 9.7 sec (9.0-12.0)
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
--- NOTE | 2020-06-04 15:43 | XR ---
EXAMINATION TYPE: XR KUB DATE OF EXAM: 06/04/2020 3:33 PM CLINICAL HISTORY: Left sided pain and black stool. TECHNIQUE: Two Upright KUB images of the abdomen are obtained. COMPARISON: CT abdomen and pelvis March 12, 2020. FINDINGS: Gas seen in nondistended stomach. Some paucity of bowel gas. Visualized gas noted in nondis tended small and large bowel loops. Cholecystectomy clips. Additional surgical clips right lower quad rant again seen. Lung bases are clear. No free air. No suspicious calcifications. Liver size stable a nd upper limits of normal. IMPRESSION: Overall nonspecific but strongly favor nonobstructive bowel gas pattern.
[2020-06-04 16:20] LABS: Appearance,Urine Clear (Clear); Bilirubin,Urine Negative (Negative); Blood,Urine Negative (Negative); Color,Urine Light Yellow; Glucose,Urine (UA) Negative (Negative); Ketones,Urine 1+ (Negative); Leukocyte Esterase,Urine Negative (Negative); Nitrite,Urine Negative (Negative); PH, Urine 5.5 (5.0-8.0); Protein,Urine Negative (Negative); Specific Gravity,Urine 1.009 (1.001-1.035); Urobilinogen,Urine <2.0 mg/dL (<2.0)
[2020-06-04 17:51] VITALS: BP 130/88; PULSE 62; RESP 18
== END 2020-06-04 17:53 | disposition home or self-care (01) ==
LOC: EC 13:38
DX: R10.12 Left upper quadrant pain (principal); M19.90 Unspecified osteoarthritis, unspecified site; Z79.899 Other long term (current) drug therapy; Z86.73 Personal history of transient ischemic attack (TIA), and cerebral infarction without residual deficits; Z87.891 Personal history of nicotine dependence; F41.9 Anxiety disorder, unspecified
CPT/HCPCS: 36415; 93005; 80053; 83605; 83690; 84484; 85025; 85610; 85730; 82272; 81003; 74018; 99284; J2405; J1170

== ENCOUNTER 2020-06-16 13:24 | Emergency (ER) | payer OTHER ==
[2020-06-16 13:30] LABS: Glucose,Whole Blood 130 mg/dL (75-99)
[2020-06-16] MEDS ORDERED: ASPIRIN 81 MG PO STA (13:38)
[2020-06-16] MEDS ORDERED: NITROGLYCERIN SL TABS 0.4 MG TAB SUBLINGUAL STA (13:38)
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
[2020-06-16 13:56] LABS: Basophils # (A) 0.1 k/uL (0-0.2); Basophils % (A) 1 %; Eosinophils # (A) 0.5 k/uL (0-0.7); Eosinophils % (A) 5 %; HCT 44.8 % (34.0-46.0); HGB 15.8 gm/dL (11.4-16.0); Lymphocytes # (A) 2.6 k/uL (1.0-4.8); Lymphocytes % (A) 27 %; MCH 33.4 pg (25.0-35.0); MCHC 35.2 g/dL (31.0-37.0); MCV 94.9 fL (80.0-100.0); Mean Platelet Volume 8.4; Monocytes # (A) 0.4 k/uL (0-1.0); Monocytes % (A) 5 %; Neutrophils # (A) 6.1 k/uL (1.3-7.7); Neutrophils % (A) 62 %; Platelet Count 198 k/uL (150-450); RBC 4.72 m/uL (3.80-5.40); RDW 12.8 % (11.5-15.5); WBC 9.8 k/uL (3.8-10.6)
--- NOTE | 2020-06-16 13:57 | XR ---
EXAMINATION TYPE: XR chest 1V portable DATE OF EXAM: 06/16/2020 COMPARISON: 03/21/2020 HISTORY: Chest pain TECHNIQUE: Single frontal view of the chest is obtained. FINDINGS: There is no focal air space opacity, pleural effusion, or pneumothorax seen. The cardiac silhouette size is within normal limits. The osseous structures are intact. IMPRESSION: 1. No acute process.
[2020-06-16 14:11] LABS: ALT 20 U/L (4-34); AST 30 U/L (14-36); African American GFR (CKD) >90 (>60 ml/min/1.73 sqM); Albumin 4.4 g/dL (3.5-5.0); Alkaline Phosphatase 54 U/L (38-126); Anion Gap 9 mmol/L; Blood Urea Nitrogen 10 mg/dL (7-17); Calcium 9.6 mg/dL (8.4-10.2); Carbon Dioxide 23 mmol/L (22-30); Chloride 104 mmol/L (98-107); Glucose 126 mg/dL (74-99); Magnesium 1.9 mg/dL (1.6-2.3); Non-African American GFR(CKD) >90 (>60 ml/min/1.73 sqM); Sodium 136 mmol/L (137-145); Total Bilirubin 0.7 mg/dL (0.2-1.3); Total Protein 7.4 g/dL (6.3-8.2)
[2020-06-16 14:13] LABS: INR 0.9 (<1.2); Potassium 4.2 mmol/L (3.5-5.1); Prothrombin Time 9.8 sec (9.0-12.0)
[2020-06-16 14:18] LABS: Partial Thromboplastin Time 21.8 sec (22.0-30.0)
[2020-06-16 14:53] VITALS: RESP 18
--- NOTE | 2020-06-16 15:55 | CT ---
EXAMINATION TYPE: CT angio tho/abd W Run Off DATE OF EXAM: 06/16/2020 COMPARISON: None HISTORY: generalized pain with leg numbness CT DLP: 1303.9 mGycm CONTRAST: CTA thoracic and abdominal aorta with 3-D reconstruction is performed and with IV Contrast, patient i njected with 100 mL of Isovue 370. Contrast CTA of the thoracic and abdominal aorta with runoff of the lower extremity arterial system w as performed from the lung bases through the ankles and feet. 3-D reconstruction imaging obtained at a separate workstation. Aorta and runoff vessels: No evidence for thoracic or dominant aortic aneurysm. There is no evidence for dissection. No perivascular collections are seen. The iliac vessels including internal and external iliacs are patent as are the femoral arteries, prof unda femoris and superficial femoral artery. Popliteal artery bilaterally as well as the below the kn ee arteries including the trifurcation as well as the anterior and posterior tibials and peroneal ves sels are patent and free of the occlusion or dissection. LIVER/GB-the gallbladder is surgically absent. PANCREAS- No significant abnormality is seen. SPLEEN- No significant abnormality is seen. ADRENALS- No significant abnormality is seen. KIDNEYS/BLADDER- No significant abnormality is seen. BOWEL-the appendix is surgically absent. GENITAL ORGANS: No gross abnormality seen. LYMPH NODES- No greater than 1cm abdominal or pelvic lymph nodes are appreciated. OSSEOUS STRUCTURES- No significant abnormality is seen. OTHER- No significant abnormality is seen. IMPRESSION 1. Normal evaluation of the aorta and runoff vessels.
[2020-06-16] MEDS ORDERED: NITROGLYCERIN SL TABS 0.4 MG TAB SUBLINGUAL PRN (16:02)
--- NOTE | 2020-06-16 16:11 | ED ---
Medical Decision Making - Lab Data Result diagrams: 06/16/20 13:42 06/16/20 13:42 Lab Results 06/16/20 06/16/20 06/16/20 Range/Units 13:27 13:42 13:42 WBC 9.8 (3.8-10.6) k/uL RBC 4.72 (3.80-5.40) m/uL Hgb 15.8 (11.4-16.0) gm/dL Hct 44.8 (34.0-46.0) % MCV 94.9 (80.0-100.0) fL MCH 33.4 (25.0-35.0) pg MCHC 35.2 (31.0-37.0) g/dL RDW 12.8 (11.5-15.5) % Plt Count 198 (150-450) k/uL MPV 8.4 Neutrophils % 62 % Lymphocytes % 27 % Monocytes % 5 % Eosinophils % 5 % Basophils % 1 % Neutrophils # 6.1 (1.3-7.7) k/uL Lymphocytes # 2.6 (1.0-4.8) k/uL Monocytes # 0.4 (0-1.0) k/uL Eosinophils # 0.5 (0-0.7) k/uL Basophils # 0.1 (0-0.2) k/uL PT 9.8 (9.0-12.0) sec INR 0.9 (<1.2) APTT 21.8 L (22.0-30.0) sec Sodium (137-145) mmol/L Potassium (3.5-5.1) mmol/L Chloride (98-107) mmol/L Carbon Dioxide (22-30) mmol/L Anion Gap mmol/L BUN (7-17) mg/dL Creatinine (0.52-1.04) mg/dL Est GFR (CKD-EPI)AfAm (>60 ml/min/1.73 sqM) Est GFR (CKD-EPI)NonAf (>60 ml/min/1.73 sqM) Glucose (74-99) mg/dL POC Glucose (mg/dL) 130 H (75-99) mg/dL POC Glu [employer] Integrator ID Lary Villavicencio Calcium (8.4-10.2) mg/dL Magnesium (1.6-2.3) mg/dL Total Bilirubin (0.2-1.3) mg/dL AST (14-36) U/L ALT (4-34) U/L Alkaline Phosphatase (38-126) U/L Troponin I (0.000-0.034) ng/mL Total Protein (6.3-8.2) g/dL Albumin (3.5-5.0) g/dL Coronavirus (PCR) (Not Detectd) 06/16/20 06/16/20 06/16/20 Range/Units 13:42 13:42 13:42 WBC (3.8-10.6) k/uL RBC (3.80-5.40) m/uL Hgb (11.4-16.0) gm/dL Hct (34.0-46.0) % MCV (80.0-100.0) fL MCH (25.0-35.0) pg MCHC (31.0-37.0) g/dL RDW (11.5-15.5) % Plt Count (150-450) k/uL MPV Neutrophils % % Lymphocytes % % Monocytes % % Eosinophils % % Basophils % % Neutrophils # (1.3-7.7) k/uL Lymphocytes # (1.0-4.8) k/uL Monocytes # (0-1.0) k/uL Eosinophils # (0-0.7) k/uL Basophils # (0-0.2) k/uL PT (9.0-12.0) sec INR (<1.2) APTT (22.0-30.0) sec Sodium 136 L (137-145) mmol/L Potassium 4.2 (3.5-5.1) mmol/L Chloride 104 (98-107) mmol/L Carbon Dioxide 23 (22-30) mmol/L Anion Gap 9 mmol/L BUN 10 (7-17) mg/dL Creatinine 0.45 L (0.52-1.04) mg/dL Est GFR (CKD-EPI)AfAm >90 (>60 ml/min/1.73 sqM) Est GFR (CKD-EPI)NonAf >90 (>60 ml/min/1.73 sqM) Glucose 126 H (74-99) mg/dL POC Glucose (mg/dL) (75-99) mg/dL POC Glu [employer] Integrator ID Calcium 9.6 (8.4-10.2) mg/dL Magnesium 1.9 (1.6-2.3) mg/dL Total Bilirubin 0.7 (0.2-1.3) mg/dL AST 30 (14-36) U/L ALT 20 (4-34) U/L Alkaline Phosphatase 54 (38-126) U/L Troponin I <0.012 (0.000-0.034) ng/mL Total Protein 7.4 (6.3-8.2) g/dL Albumin 4.4 (3.5-5.0) g/dL Coronavirus (PCR) Not Detected (Not Detectd) Disposition Clinical Impression: Chest pain Disposition: Left Against Medical Advice Condition: Fair Instructions (If sedation given, give patient instructions): Chest Pain (ED) Additional Instructions: Please return to the emergency department if he have any worsening symptoms including recurrence of chest pain or any worsening symptoms. It was discussed with you that your leaving AGAINST MEDICAL ADVICE. Otherwise follow-up with cardiology. Referrals: Clarence Edward MD [STAFF PHYSICIAN] - 1-2 days Time of Disposition: 16:10
[2020-06-16 16:47] VITALS: BP 137/84; PULSE 78; TEMP 98.1
[2020-06-17] MEDS ORDERED: ASPIRIN 325 MG TAB PO SCH (09:00)
== END 2020-06-16 16:42 | disposition left against medical advice (07) ==
LOC: EC 13:24
DX: R07.89 Other chest pain (principal); Z53.29 Procedure and treatment not carried out because of patient's decision for other reasons; I25.10 Atherosclerotic heart disease of native coronary artery without angina pectoris; G40.909 Epilepsy, unspecified, not intractable, without status epilepticus; Z79.899 Other long term (current) drug therapy; Z88.5 Allergy status to narcotic agent; Z88.8 Allergy status to other drugs, medicaments and biological substances; Z91.048 Other nonmedicinal substance allergy status; Z86.73 Personal history of transient ischemic attack (TIA), and cerebral infarction without residual deficits; Z87.891 Personal history of nicotine dependence
CPT/HCPCS: 36415; 93005; 80053; 83735; 84484; 85025; 85610; 85730; 87635; 71045; 75635; 71275; 99285; Q9967

== ENCOUNTER 2020-07-24 14:18 | Emergency (ER) | payer OTHER ==
[2020-07-24 14:31] VITALS: TEMP 98
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
[2020-07-24] MEDS ORDERED: diphenhydrAMINE 50 MG CAP PO STA (15:02)
[2020-07-24] MEDS ORDERED: HYDROmorphone 1 MG/ML 1 ML SYRINGE IM STA (15:02)
[2020-07-24] MEDS ORDERED: dexAMETHasone 2 MG TAB PO STA (15:02)
[2020-07-24] MEDS ORDERED: ETODOLAC 400 MG TAB PO STA (15:05)
[2020-07-24] MEDS ORDERED: PROCHLORPERAZINE 5 MG TAB PO STA (15:05)
[2020-07-24] MEDS ORDERED: ONDANSETRON 4 MG/2 ML VIAL IVP STA (16:29)
[2020-07-24] MEDS ORDERED: SODIUM CHLORIDE 0.9% 1,000 ML IV STA (16:32)
[2020-07-24] MEDS ORDERED: LORazepam 2 MG/ML INJ IV STA (16:32)
[2020-07-24] MEDS ORDERED: ONDANSETRON 4 MG ODT STARTER PACK 2 TAB BTL PO STA (17:19)
[2020-07-24 17:24] VITALS: BP 122/80; PULSE 92; RESP 18
== END 2020-07-24 17:25 | disposition home or self-care (01) ==
LOC: EC 14:18
DX: G43.909 Migraine, unspecified, not intractable, without status migrainosus (principal); G40.909 Epilepsy, unspecified, not intractable, without status epilepticus; I25.10 Atherosclerotic heart disease of native coronary artery without angina pectoris; M19.90 Unspecified osteoarthritis, unspecified site; Z87.442 Personal history of urinary calculi; Z87.891 Personal history of nicotine dependence; Z86.73 Personal history of transient ischemic attack (TIA), and cerebral infarction without residual deficits; Z82.49 Family history of ischemic heart disease and other diseases of the circulatory system; Z83.3 Family history of diabetes mellitus; Z88.8 Allergy status to other drugs, medicaments and biological substances
CPT/HCPCS: 99283; 96374; 96375; 96361; 96372; S0183; J2060; J2405; J1170; J8540

== ENCOUNTER 2020-08-03 10:27 | Day surgery (SDC) | payer OTHER ==
[2020-07-30 12:55] VITALS: BMI 35.9
[~2020-08-03 10:27] MED LIST: LACTATED RINGERS 1,000 ML IV SCH
[2020-08-03 11:10] VITALS: TEMP 97.4
[2020-08-03] MEDS ORDERED: PROPOFOL 10 MG/ML 20 ML VIAL IV ONE (12:33)
[2020-08-03] MEDS ORDERED: LIDOCAINE 1% INJ 10MG/ML (20 ML MDV) ONE (12:33)
--- NOTE | 2020-08-03 12:51 | P.PCN ---
Date of Procedure: 08/03/20 Description of Procedure: BRIEF HISTORY: Patient is a 44-year-old female presenting for EGD for evaluation of epigastric abdominal pain. The patient reported episodes of epigastric abdominal pain worsened since the beginning of the year. She complains of postprandial abdominal pain. Some improvement on PPI therapy with omeprazole and dicyclomine.. PROCEDURE PERFORMED: Esophagogastroduodenoscopy with biopsy. PREOPERATIVE DIAGNOSIS: Epigastric abdominal pain, nausea and vomiting. ESTIMATED BLOOD LOSS: Minimal. IV sedation per anesthesia. PROCEDURE: After informed consent was obtained, the patient was brought into the endoscopy unit. IV sedation was administered by Anesthesia under continuous monitoring. Initially the Olympus GIF-190 video endoscope was inserted into the mouth. Esophagus intubated without any difficulty. It was gradually advanced into the stomach and duodenum and carefully examined. The bulb and the second part of the duodenum appeared normal, with biopsies taken. The scope at this time was withdrawn to the stomach, adequately insufflated with air, and upon careful examination, mucosa of the antrum, body, cardia and the fundus appeared normal, except for some mild punctate erythema in the antrum and body suggestive of mild gastritis biopsy was taken. There was also a antral ulcer measuring 3 mm in size without high risk stigmata for bleeding which was biopsied. The scope was then withdrawn into the esophagus. The GE junction was located at 35 cm from the incisors. Lower esophageal biopsies. The esophagus appeared normal. There were no erosions or ulcerations seen and the patient tolerated the procedure well. IMPRESSION: 1. Mild gastritis. 2. Non bleeding antral ulcer. 3. Biopsies of the duodenum, antrum body, antral ulcer and lower esophagus. RECOMMENDATIONS: The findings of this examination were discussed with the patient and her family. Okay to resume diet. Okay to resume medications. Avoid NSAID therapy including ibuprofen. Continue omeprazole daily, if no improvement can consider increasing to twice daily. Follow-up in the GI clinic as scheduled. Consider repeating EGD in 6-8 weeks to check for ulcer healing.
[2020-08-03 12:52] VITALS: BP 114/78
[2020-08-03 13:10] VITALS: PULSE 72; RESP 18
== END 2020-08-03 13:39 | disposition home or self-care (01) ==
LOC: ORWHC2ENDO 10:27
PROVIDERS: ATTEND Internal Medicine
DX: K29.50 Unspecified chronic gastritis without bleeding (principal); K25.9 Gastric ulcer, unspecified as acute or chronic, without hemorrhage or perforation; K20.90 Esophagitis, unspecified without bleeding; F17.210 Nicotine dependence, cigarettes, uncomplicated; R56.9 Unspecified convulsions; Z86.73 Personal history of transient ischemic attack (TIA), and cerebral infarction without residual deficits; Z79.899 Other long term (current) drug therapy; Z88.5 Allergy status to narcotic agent; Z88.8 Allergy status to other drugs, medicaments and biological substances; Z90.49 Acquired absence of other specified parts of digestive tract; Z98.51 Tubal ligation status
CPT/HCPCS: 88305; 43239; J2001; J2704

== ENCOUNTER 2020-09-16 12:12 | Emergency (ER) | payer OTHER ==
[2020-09-16 12:31] VITALS: BP 123/81; PULSE 94; RESP 20; TEMP 98.2
[2020-09-16] MEDS ORDERED: KETOROLAC 15 MG/ML 1 ML VIAL IVP STA (13:33)
[2020-09-16] MEDS ORDERED: ONDANSETRON 4 MG/2 ML VIAL IVP STA (13:33)
[2020-09-16] MEDS ORDERED: SODIUM CHLORIDE 0.9% 500 ML 500 ML IV STA (13:33)
[2020-09-16] MEDS ORDERED: MORPHINE SULFATE 4 MG/ML SYRINGE IV STA (13:33)
[2020-09-16] MEDS ORDERED: SODIUM CHLORIDE 0.9% 1,000 ML IV STA (13:33)
[2020-09-16 13:54] LABS: Appearance,Urine Clear (Clear); Bilirubin,Urine Negative (Negative); Blood,Urine Negative (Negative); Color,Urine Light Yellow; Glucose,Urine (UA) Negative (Negative); Ketones,Urine Negative (Negative); Leukocyte Esterase,Urine Negative (Negative); Nitrite,Urine Negative (Negative); Protein,Urine Negative (Negative); Specific Gravity,Urine 1.007 (1.001-1.035); Urobilinogen,Urine <2.0 mg/dL (<2.0)
[2020-09-16 13:55] LABS: Basophils # (A) 0.1 k/uL (0-0.2); Basophils % (A) 1 %; Eosinophils # (A) 0.5 k/uL (0-0.7); Eosinophils % (A) 5 %; HCT 46.5 % (34.0-46.0); HGB 15.1 gm/dL (11.4-16.0); Lymphocytes # (A) 2.5 k/uL (1.0-4.8); Lymphocytes % (A) 24 %; MCH 31.5 pg (25.0-35.0); MCHC 32.5 g/dL (31.0-37.0); MCV 96.8 fL (80.0-100.0); Mean Platelet Volume 9.3; Monocytes # (A) 0.5 k/uL (0-1.0); Monocytes % (A) 4 %; Neutrophils # (A) 6.7 k/uL (1.3-7.7); Neutrophils % (A) 65 %; Platelet Count 230 k/uL (150-450); RDW 13.4 % (11.5-15.5); WBC 10.4 k/uL (3.8-10.6)
[2020-09-16 14:19] LABS: ALT 22 U/L (4-34); AST 27 U/L (14-36); African American GFR (CKD) >90 (>60 ml/min/1.73 sqM); Albumin 3.9 g/dL (3.5-5.0); Alkaline Phosphatase 59 U/L (38-126); Anion Gap 6 mmol/L; Blood Urea Nitrogen 8 mg/dL (7-17); Calcium 9.6 mg/dL (8.4-10.2); Carbon Dioxide 23 mmol/L (22-30); Chloride 108 mmol/L (98-107); Glucose 103 mg/dL (74-99); Non-African American GFR(CKD) >90 (>60 ml/min/1.73 sqM); Potassium 4.6 mmol/L (3.5-5.1); Sodium 137 mmol/L (137-145); Total Bilirubin 0.2 mg/dL (0.2-1.3); Total Protein 6.4 g/dL (6.3-8.2)
[2020-09-16] MEDS ORDERED: MORPHINE SULFATE 4 MG/ML SYRINGE IVP STA (14:23)
--- NOTE | 2020-09-16 14:33 | CT ---
EXAMINATION TYPE: CT abdomen pelvis wo con DATE OF EXAM: 09/16/2020 COMPARISON: 03/12/2020 HISTORY: 44-year-old female Rt flank pain, kidney stone suspected. CT DLP: 813.3 mGycm. Automated exposure control for dose reduction was used. TECHNIQUE: Contiguous axial scanning of the abdomen and pelvis without IV contrast. Coronal and sagit angle reconstructions performed. FINDINGS: Heart normal size without pericardial effusion. Mild emphysematous change of the visualized lower aleksander gs. No pleural effusion. Liver enlarged measuring 20.2 cm. Bile duct at 8 mm, acceptable given postcholecystectomy status. Adrenal glands, spleen, and pancreas show no gross abnormally by noncontrast CT. Kidneys show no nephrolithiasis or hydronephrosis. No dilated small bowel, free fluid, or free air. No mesenteric or retroperitoneal lymphadenopathy. There are some surgical material in the right lower quadrant that could reflect dropped cholecystecto my clips. Mild overall stool burden. No pericolonic inflammatory change. While the appendix is not vi sualized, no secondary findings of acute appendicitis in the right lower quadrant. Bladder under distended. Uterus surgically absent. Both ovaries are visualized. There is a 1.9 cm dom inant follicle or functional cyst within the right ovary. Tiny pelvic phlebolith. No abnormal fluid c ollection in the pelvis or pelvic lymphadenopathy. Bones: Bilateral condensing ileitis with mild degenerative change at the SI joints. No osseous destru ctive process. IMPRESSION: 1. Hepatomegaly at 20.2 cm. 2. Mild emphysematous change in the visualized lower lungs. 3. No nephrolithiasis or hydronephrosis. No other acute inflammatory process identified to explain t he patient's symptoms. 4. A 1.9 cm dominant follicle or functional cyst of the right ovary.
[2020-09-16] MEDS ORDERED: DICYCLOMINE 20 MG TAB PO STA (14:39)
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
== END 2020-09-16 14:56 | disposition home or self-care (01) ==
LOC: EC 12:12
DX: M54.9 Dorsalgia, unspecified (principal); N83.201 Unspecified ovarian cyst, right side; R16.0 Hepatomegaly, not elsewhere classified; F17.200 Nicotine dependence, unspecified, uncomplicated; I25.10 Atherosclerotic heart disease of native coronary artery without angina pectoris; G43.909 Migraine, unspecified, not intractable, without status migrainosus; Z79.899 Other long term (current) drug therapy; Z88.8 Allergy status to other drugs, medicaments and biological substances; Z88.5 Allergy status to narcotic agent; Z91.018 Allergy to other foods
CPT/HCPCS: 99284; 96374; 96375; 96376; 96361; 36415; 80053; 85025; 81003; 81025; 74176; J2270; J2405; J1885; 96366

== ENCOUNTER 2020-10-03 09:27 | Observation (INO) | payer OTHER ==
[2020-10-03] MEDS ORDERED: NITROGLYCERIN OINT 1 INCH/GM PACKET TOPICAL STA (09:31)
[2020-10-03] MEDS ORDERED: LORazepam 2 MG/ML INJ IV STA (09:32)
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
[2020-10-03 09:54] LABS: Basophils # (A) 0.1 k/uL (0-0.2); Basophils % (A) 1 %; Eosinophils # (A) 0.7 k/uL (0-0.7); Eosinophils % (A) 4 %; HCT 43.4 % (34.0-46.0); Lymphocytes % (A) 13 %; MCH 32.3 pg (25.0-35.0); MCHC 34.4 g/dL (31.0-37.0); MCV 93.9 fL (80.0-100.0); Mean Platelet Volume 8.5; Monocytes # (A) 0.6 k/uL (0-1.0); Monocytes % (A) 4 %; Neutrophils # (A) 11.7 k/uL (1.3-7.7); Neutrophils % (A) 78 %; Platelet Count 233 k/uL (150-450); RBC 4.63 m/uL (3.80-5.40); RDW 12.6 % (11.5-15.5); WBC 15.1 k/uL (3.8-10.6)
[2020-10-03 10:01] LABS: ALT 20 U/L (4-34); AST 25 U/L (14-36); African American GFR (CKD) >90 (>60 ml/min/1.73 sqM); Albumin 4.2 g/dL (3.5-5.0); Alkaline Phosphatase 68 U/L (38-126); Anion Gap 8 mmol/L; Blood Urea Nitrogen 7 mg/dL (7-17); Calcium 9.8 mg/dL (8.4-10.2); Carbon Dioxide 25 mmol/L (22-30); Chloride 106 mmol/L (98-107); Glucose 115 mg/dL (74-99); Magnesium 1.6 mg/dL (1.6-2.3); Non-African American GFR(CKD) >90 (>60 ml/min/1.73 sqM); Potassium 3.5 mmol/L (3.5-5.1); Sodium 139 mmol/L (137-145); Total Bilirubin 0.2 mg/dL (0.2-1.3); Total Protein 6.9 g/dL (6.3-8.2)
[2020-10-03 10:14] LABS: INR 0.9 (<1.2); Partial Thromboplastin Time 23.1 sec (22.0-30.0); Prothrombin Time 9.6 sec (9.0-12.0)
--- NOTE | 2020-10-03 10:16 | XR ---
EXAMINATION TYPE: XR chest 2V DATE OF EXAM: 10/03/2020 COMPARISON: Chest x-ray 06/16/2020 HISTORY: Chest pain TECHNIQUE: Frontal and lateral views of the chest are obtained. FINDINGS: There is no focal air space opacity, pleural effusion, or pneumothorax seen. The cardiac silhouette size is within normal limits. The osseous structures are intact. There are overlying sofia ds. Patient is rotated. Surgical clips present in the upper abdomen. IMPRESSION: No acute cardiopulmonary process.
[2020-10-03] MEDS ORDERED: ACETAMINOPHEN TAB 325 MG TAB PO STA (10:25)
[2020-10-03] MEDS ORDERED: NITROGLYCERIN SL TABS 0.4 MG TAB SUBLINGUAL PRN ×2 (11:31→13:07)
[2020-10-03] MEDS ORDERED: KETOROLAC 15 MG/ML 1 ML VIAL IVP STA (12:03)
[2020-10-03] MEDS ORDERED: CYCLOBENZAPRINE 10 MG TAB PO PRN (13:07)
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
[2020-10-03] MEDS: NITROGLYCERIN OINT 1 INCH/GM PACKET TOPICAL SCH ×2 (14:45→17:52)
[2020-10-03] MEDS: amLODIPine 10 MG TAB PO SCH (14:45)
[2020-10-03] MEDS: NICOTINE 7MG/24HR PATCH TRANSDERM SCH (14:46)
--- NOTE | 2020-10-03 15:13 | CONS ---
CONSULTATION CHIEF COMPLAINT: Chest pain. HISTORY: Josie is a 44-year-old lady with history of coronary artery disease and hypertension, who is presents to hospital complaining of chest pain. Her chest discomfort is sharp precordial. She also has neck pain. EKG in the ER did not reveal ischemic changes. Cardiac enzymes have been negative. She states that she had another welder apprentice gas in the past who performed a cardiac catheterization on her and it is unclear if she had a balloon angioplasty. Certainly did not have a stent. PAST MEDICAL HISTORY: Significant for hypertension. MEDICATIONS: Current medications include Flexeril, Elavil, Bentyl, omeprazole, Norvasc, and sublingual nitroglycerin. ALLERGIES: Allergic to CODEINE, SOLUMEDROL. FAMILY HISTORY: Negative for premature coronary artery disease. SOCIAL HISTORY: Negative for smoking, EtOH abuse, or drug abuse. REVIEW OF SYSTEMS: HEENT is unremarkable. Cardiac as described above. Respiratory negative. GI negative. negative. Skin negative. Musculoskeletal significant for arthritis. Psychosocial negative. Endocrine and derm negative. Constitutional and oncological negative. DONATIONS ATTENDANT is negative. EXAM: Comfortable at rest. Vital signs are stable. There is no jugular venous distention. Carotid upstroke is normal. There is no bruit. Chest exam reveals good air entry bilaterally. Heart exam reveals first and second heart sounds. No gallop. No murmur. No rub. Examination of extremities did not reveal any edema. Peripheral pulses are felt. ASSESSMENT: Precordial chest pain sharp atypical probably noncardiac. Two sets of cardiac enzymes are negative. Will watch her overnight and review her records from the outpatient. MMODL / IJN: [id number] /
[2020-10-03] MEDS: DICYCLOMINE 20 MG TAB PO SCH ×2 (16:41→21:06)
[2020-10-03] MEDS ORDERED: AMITRIPTYLINE HCL 25 MG TAB PO SCH (21:00)
[2020-10-03] MEDS ORDERED: ACETAMINOPHEN TAB 325 MG TAB PO PRN (21:54)
[2020-10-04] MEDS: NITROGLYCERIN OINT 1 INCH/GM PACKET TOPICAL SCH ×2 (01:57→06:03)
[2020-10-04] MEDS: DICYCLOMINE 20 MG TAB PO SCH (08:19)
[2020-10-04] MEDS: amLODIPine 10 MG TAB PO SCH (08:19)
[2020-10-04] MEDS: NICOTINE 7MG/24HR PATCH TRANSDERM SCH (08:20)
[2020-10-04] MEDS ORDERED: PANTOPRAZOLE 40 MG TABLET PO SCH (09:00)
[2020-10-04] MEDS ORDERED: ASPIRIN 325 MG TAB PO SCH (09:00)
--- NOTE | 2020-10-04 10:37 | P.PN ---
Subjective This is a pleasant 44-year-old female who was seen in consultation yesterday by Dr. Quintero. Initial evaluation was for symptoms of chest d iscomfort. The patient is currently chest pain-free. She has no symptoms of shortness of breath, dizziness or palpitations. According to the patient she underwent a cardiac catheterization at [facility] with Dr. Riley recently. She states that there was some sort of blockage that was "cleaned out" however she did not have any stents placed. Exact details of this procedure are unclear. Currently her blood pressure is 108/66 with a heart rate of 92. Laboratory data reviewed, cardiac enzymes negative 3. Currently she is maintained on aspirin 325 mg daily, amlodipine 10 mg daily and Nitro-Bid. Telemetry tracings reveal persistent sinus mechanism with no arrhythmias noted. GENERAL: Well-appearing, well-nourished and in no acute distress. NECK: Supple without JVD or thyromegaly. LUNGS: Breath sounds clear to auscultation bilaterally. Respiration equal and unlabored. No wheezes, rales or rhonchi. HEART: Regular rate and rhythm without murmurs, rubs or gallops. S1 and S2 h eard. EXTREMITIES: Normal range of motion, no edema. No clubbing or cyanosis. Peripheral pulses intact. ASSESSMENT Chest pain, atypical Leukocytosis Hypertension Chronic nicotine dependence Obesity, BMI 35 PLAN Request records from [place] of recent [facility] for review and clarification. Discontinue nitropaste. Overall, she is stable from a cardiac perspective. An acute event has been ruled out. She has been advised to follow up with Dr. Riley. Nurse Practitioner note has been reviewed, I agree with a documented findings and plan of care. Patient was seen and examined. Objective - Vital Signs Vital signs: Vital Signs Temp 98.0 F 10/04/20 06:40 Pulse 92 10/04/20 06:40 Resp 16 10/04/20 06:40 BP 108/66 10/04/20 08:17 Pulse Ox 94 L 10/04/20 06:40 Intake & Output 10/03/20 10/04/20 10/04/20 18:59 06:59 18:59 Weight 83.915 kg Other: # Voids 0 0 - Labs CBC & Chem 7: 10/03/20 09:36 10/03/20 09:36
[2020-10-04 11:28] LABS: Chol/HDL Ratio 5.97; LDL Cholesterol,Calculated 147.6 mg/dL (0.0-131.0); VLDL Calculation 31.4 mg/dL (5.00-40.00)
[2020-10-04 14:05] VITALS: BP 115/79; PULSE 88; RESP 16; TEMP 98.3
--- NOTE | 2020-10-04 14:22 | P.DS ---
Providers Date of admission: 10/03/20 11:40 Expected date of discharge: 10/04/20 Attending physician: Malcom Ling Consults: 10/03/20 11:31 Consult Physician Urgent Consulting Provider: [facility] Reason/Comments: Chest pain Do you want consulting provider notified?: Yes Primary care physician: Miguel [facility] Course: This is a 44-year-old female with past medical history significant for hypertension, hyperlipidemia, nonobstructive coronary artery disease who presented to the emergency room with chest pain. Patient was evaluated in the ER in 12-lead EKG showed no acute ischemic changes. She was placed on observation and serial troponin were negative 3 sets. Patient was seen and evaluated by cardiology. Medical records from [facility] reviewed showing left heart catheterization in December 2019 showing 60% stenosis of the mid LAD. Patient is managed medically by her tower director. Patient informed me that she takes amlodipine and Imdur at home. She was cleared by cardiology for discharge. I discussed the left heart catheterization findings over the phone with the cardiology nurse practitioner Constance who advised the patient can follow-up with her tower director in the office On the day of discharge, patient was seen, evaluated, and examined by me. She denies any chest pain. Heart sounds reveal normal S1 and S2 with no murmurs. She will be discharged home in a stable condition. She was counseled extensively about tobacco cessation. Plan - Discharge Summary Discharge Rx Participant: No New Discharge Prescriptions: New Aspirin 81 mg PO DAILY #30 chewable Continue Amitriptyline HCl [Elavil] 25 mg PO HS Nitroglycerin Sl Tabs [Nitrostat] 0.4 mg SUBLINGUAL Q5M PRN PRN Reason: Chest Pain Dicyclomine [Bentyl] 20 mg PO TID amLODIPine [Norvasc] 10 mg PO DAILY Cyclobenzaprine [Flexeril] 10 mg PO TID PRN #20 tab PRN Reason: Pain Omeprazole 20 mg PO DAILY Discharge Medication List Dicyclomine [Bentyl] 20 mg PO TID 07/30/20 [History] Cyclobenzaprine [Flexeril] 10 mg PO TID PRN #20 tab 09/16/20 [Rx] amLODIPine [Norvasc] 10 mg PO DAILY 09/16/20 [History] Amitriptyline HCl [Elavil] 25 mg PO HS 10/03/20 [History] Nitroglycerin Sl Tabs [Nitrostat] 0.4 mg SUBLINGUAL Q5M PRN 10/03/20 [History] Omeprazole 20 mg PO DAILY 10/03/20 [History] Aspirin 81 mg PO DAILY #30 chewable 10/04/20 [Rx] Follow up Appointment(s)/Referral(s): Miguel Isbell [Primary Care Provider] - 1-2 days Discharge Disposition: HOME SELF-CARE
[2020-10-05] MEDS ORDERED: ASPIRIN 81 MG PO SCH (09:00)
== END 2020-10-04 15:40 | disposition home or self-care (01) ==
LOC: EC 09:27 → 6NMEDSUR 11:40
PROVIDERS: ADMIT Internal Medicine; ATTEND Internal Medicine
DX: R07.89 Other chest pain (principal); R06.02 Shortness of breath; R00.0 Tachycardia, unspecified; R07.2 Precordial pain; D72.829 Elevated white blood cell count, unspecified; F17.210 Nicotine dependence, cigarettes, uncomplicated; E78.5 Hyperlipidemia, unspecified; E78.00 Pure hypercholesterolemia, unspecified; I10 Essential (primary) hypertension; I25.10 Atherosclerotic heart disease of native coronary artery without angina pectoris; M19.90 Unspecified osteoarthritis, unspecified site; F41.9 Anxiety disorder, unspecified; G40.909 Epilepsy, unspecified, not intractable, without status epilepticus; G43.909 Migraine, unspecified, not intractable, without status migrainosus; E66.9 Obesity, unspecified; Z68.35 Body mass index [BMI] 35.0-35.9, adult; Z87.442 Personal history of urinary calculi; Z86.73 Personal history of transient ischemic attack (TIA), and cerebral infarction without residual deficits; Z79.899 Other long term (current) drug therapy; Z88.5 Allergy status to narcotic agent; Z88.8 Allergy status to other drugs, medicaments and biological substances; Z91.018 Allergy to other foods; Z90.49 Acquired absence of other specified parts of digestive tract; Z90.710 Acquired absence of both cervix and uterus; Z82.49 Family history of ischemic heart disease and other diseases of the circulatory system
CPT/HCPCS: 96375; 93005 ×2; 96374; 99285; 36415; 85379; 80061; 80053; 83735; 84484; 85025; 85610; 85730; 71046; G0378 ×2; S4990; J2060; J1885

== ENCOUNTER 2020-11-05 11:01 | Day surgery (SDC) | payer OTHER ==
[2020-11-03 12:04] VITALS: BMI 36.1
[~2020-11-05 11:01] MED LIST changes: +LIDOCAINE 1% (10MG/ML) FOR IV START INTRADERMA PRN
[2020-11-05 11:26] VITALS: TEMP 98.1
[2020-11-05] MEDS ORDERED: LIDOCAINE 1% INJ 10MG/ML (20 ML MDV) ONE (12:41)
[2020-11-05] MEDS ORDERED: PROPOFOL 10 MG/ML 20 ML VIAL IV ONE (12:41)
--- NOTE | 2020-11-05 12:55 | P.PCN ---
Date of Procedure: 11/05/20 Procedure(s) Performed: BRIEF HISTORY: Patient is a 44-year-old, pleasant, white female scheduled for an upper endoscopy as a part of evaluation of chronic epigastric pain for the last 10 years duration. She had an upper endoscopy done by Dr. Pineda 3 months ago and was noted to have a small gastric ulcer. Has been on omeprazole 20 mg twice daily. She continues to have persistent symptoms and scheduled for an upper endoscopy to document ulcer healing.. PROCEDURE PERFORMED: Esophagogastroduodenoscopy with biopsy. PREOPERATIVE DIAGNOSIS: Chronic persistent epigastric pain of several years duration. IV sedation per anesthesia. PROCEDURE: After informed consent was obtained, the patient was brought into the endoscopy unit. IV sedation was administered by Anesthesia under continuous monitoring. Initially the Olympus GIF-140 video endoscope was inserted into the mouth. Esophagus intubated without any difficulty. It was gradually advanced into the stomach and duodenum and carefully examined. The bulb and the second part of the duodenum appeared normal. The scope at this time was withdrawn to the stomach, adequately insufflated with air, and upon careful examination, mucosa of the antrum, body, cardia and the fundus appeared normal. Previously noted ulcer in the antrum has completely healed. He The scope was then withdrawn into the esophagus. The GE junction was located at 39 cm from the incisors. Small hiatal hernia noted. There was a short tongue of Delgadillo's appearing mucosa extending 3-4 mm proximal to the GE junction which was biopsied. The rest of the esophagus appeared normal. There were no erosions or ulcerations seen and the patient tolerated the procedure well. IMPRESSION: 1. Complete healed gastric antral ulcer. 2. 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 RECOMMENDATIONS: The findings of this examination were discussed with the patient as well as her family. She was advised to follow with the biopsy results and continue on omeprazole 20 mg daily and follow antireflux measures. If the biopsy confirms presence of Delgadillo's esophagus and have a repeat upper endoscopy in 2-3 years..
[2020-11-05 13:15] VITALS: BP 120/78; PULSE 78; RESP 16
== END 2020-11-05 13:55 | disposition home or self-care (01) ==
LOC: ORWHC2ENDO 11:01
PROVIDERS: ATTEND Internal Medicine Gastroenterology
DX: K22.70 Barrett's esophagus without dysplasia (principal); K44.9 Diaphragmatic hernia without obstruction or gangrene; R56.9 Unspecified convulsions; F17.200 Nicotine dependence, unspecified, uncomplicated; F39 Unspecified mood [affective] disorder; Z88.5 Allergy status to narcotic agent; K21.9 Gastro-esophageal reflux disease without esophagitis; Z79.82 Long term (current) use of aspirin; K29.50 Unspecified chronic gastritis without bleeding; Z98.890 Other specified postprocedural states; Z87.11 Personal history of peptic ulcer disease
CPT/HCPCS: 43239; 88305; J2001; J2704

== ENCOUNTER 2020-11-15 13:34 | Emergency (ER) | payer OTHER ==
[2020-11-15 13:51] VITALS: BP 131/80; PULSE 68; RESP 18; TEMP 98.2
[2020-11-15] MEDS ORDERED: KETOROLAC 15 MG/ML 1 ML VIAL IM STA (15:07)
--- NOTE | 2020-11-15 15:13 | ED ---
General Adult HPI - General Chief complaint: Extremity Problem,Nontraumatic Stated complaint: falling, hip problem Source: patient, RN notes reviewed, old records reviewed Mode of arrival: ambulatory Limitations: no limitations - History of Present Illness Initial comments: 44-year-old white female, alert and oriented 4, presents to the emergency room tearful complaining of left hip pain. Patient states that she was here getting some labs drawn about 2 hours ago when the pain started. She denies any injury. She states that it starts in the back of her leg and shoots downward. She denies any bowel or bladder incontinence no fevers and no injury. She does have a history of degenerative disc disease L5 through S1. She is a smoker but denies alcohol use. -: hour(s) (2) Location: left, lower extremity Severity scale (1-10): 7 Quality: other (shooting down back of leg) Consistency: constant Associated Symptoms: denies other symptoms Treatments Prior to Arrival: none - Related Data Home Medications Medication Instructions Recorded Confirmed Dicyclomine [Bentyl] 20 mg PO TID 07/30/20 11/05/20 amLODIPine [Norvasc] 10 mg PO QAM 09/16/20 11/05/20 Amitriptyline HCl [Elavil] 25 mg PO HS 10/03/20 11/05/20 Nitroglycerin Sl Tabs [Nitrostat] 0.4 mg SUBLINGUAL Q5M PRN 10/03/20 11/03/20 Omeprazole 20 mg PO DAILY 10/03/20 11/05/20 Previous Rx's Medication Instructions Recorded Aspirin 81 mg PO DAILY #30 chewable 10/04/20 Ibuprofen [Motrin] 600 mg PO Q8HR PRN #30 tab 11/15/20 Allergies Allergy/AdvReac Type Severity Reaction Status Date / Time codeine Allergy Rash/Hives Verified 11/15/20 13:49 diphenhydramine Allergy Rash/Hives Verified 11/15/20 13:49 [From Benadryl] methylprednisolone Allergy Itching Verified 11/15/20 13:49 [From Solu-Medrol] onion Allergy Rash/Hives Verified 11/15/20 13:49 Review of Systems ROS Statement: Those systems with pertinent positive or pertinent negative responses have been documented in the HPI. ROS Other: All systems not noted in ROS Statement are negative. 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 Carpel Tunnel bilateral wrists. Hx kidney stones. 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. Has had 2 Covid Vaccines. History of Any Multi-Drug Resistant Organisms: None Reported Past Surgical History: Appendectomy, Cholecystectomy, Heart Catheterization, Hysterectomy, Tubal Ligation Additional Past Surgical History / Comment(s): PAIN CLINIC PROCEDURES. Past Anesthesia/Blood Transfusion Reactions: No Reported Reaction Past Psychological History: Anxiety Smoking Status: Current every day smoker Past Alcohol Use History: None Reported Past Drug Use History: None Reported - Past Family History Mother Family Medical History: No Reported History Father Family Medical History: Unable to Obtain Additional Family Medical History / Comment(s): aunt and uncle mother side with CAD s/p CABG General Exam Limitations: no limitations General appearance: alert, in no apparent distress Head exam: Present: atraumatic, normocephalic, normal inspection Respiratory exam: Present: normal lung sounds bilaterally. Absent: respiratory distress, wheezes, rales, rhonchi, stridor, chest wall tenderness, accessory muscle use, decreased breath sounds Cardiovascular Exam: Present: regular rate, normal rhythm, normal heart sounds. Absent: systolic murmur, diastolic murmur, rubs, gallop, clicks Extremities exam: Absent: pedal edema Left Upper Leg exam: Absent: tenderness, swelling Knee exam: Absent: tenderness, swelling Lower Leg exam: Present: normal inspection. Absent: tenderness, swelling Neurovascular tendon exam: Present: no vascular compromise. Absent: pulse deficit, extremity cold to touch, pallor, foot drop Back exam: Present: normal inspection, vertebral tenderness (Lumbar sacral spine). Absent: CVA tenderness (R), CVA tenderness (L), muscle spasm, rash noted, other (Lower back tattoo) Neurological exam: Present: alert, oriented X3, CN II-XII intact Psychiatric exam: Present: normal affect, normal mood, other (Tearful) Skin exam: Present: warm, dry, intact, normal color. Absent: rash Course Vital Signs 11/15/20 13:49 Temperature 98.2 F Pulse Rate 68 Respiratory 18 Rate Blood Pressure 131/80 O2 Sat by Pulse 96 Oximetry Medical Decision Making - Medical Decision Making X-ray of the left hip shows no evidence of erosive change or acute fracture X- ray of the lumbar spine shows mild degenerative disc disease between L5 and S1 with sacroiliitis. Patient does state that the pain shoots down the back of her left leg. She is able to ambulate with some difficulty related to the pain. She denies any bowel or bladder incontinence, no fevers, no intravenous drug use. Patient was given a shot of Toradol and directed to follow up with orthopedics. Motrin every 8 hours as prescribed. Return with any new or worsening symptoms including bowel or bladder incontinence, fever or worsening pain. Case discussed with Dr. Partida Disposition Clinical Impression: Hip pain, left Disposition: HOME SELF-CARE Condition: Good Instructions (If sedation given, give patient instructions): Hip Pain (ED), Lower Back Exercises (ED) Additional Instructions: Take Motrin as directed, follow up with orthopedics next week. Return if any new or worsening symptoms including bowel or bladder incontinence, fever or increasing pain. Prescriptions: Ibuprofen [Motrin] 600 mg PO Q8HR PRN #30 tab PRN Reason: Pain Is patient prescribed a controlled substance at d/c from ED?: No Referrals: Miguel Isbell [Primary Care Provider] - 1-2 days Micheal Mayorga PAC [PHYSICIAN OCULARIST] - 1-2 days Time of Disposition: 15:17
== END 2020-11-15 15:54 | disposition home or self-care (01) ==
LOC: EC 13:34
DX: M25.552 Pain in left hip (principal); F17.200 Nicotine dependence, unspecified, uncomplicated; Z88.5 Allergy status to narcotic agent; Z88.8 Allergy status to other drugs, medicaments and biological substances; Z91.018 Allergy to other foods; Z87.39 Personal history of other diseases of the musculoskeletal system and connective tissue
CPT/HCPCS: 99283; 96372; J1885

== ENCOUNTER → 2020-11-15 | Outpatient (CLI) | payer OTHER ==
--- NOTE | 2020-11-15 13:28 | XR ---
EXAMINATION TYPE: XR Hip Complete LT DATE OF EXAM: 11/15/2020 COMPARISON: NONE HISTORY: Pain TECHNIQUE: 2 views submitted FINDINGS: There is no evidence of erosive change or acute fracture. Sclerotic lesion inferior pubic ramus suggestive of bone island. Correlate for sacroiliitis. IMPRESSION: 1. Correlate for sacroiliitis
--- NOTE | 2020-11-15 13:30 | XR ---
EXAM TYPE: LUMBAR SPINE X RAY SERIES COMPARISON: NONE HISTORY: Pain TECHNIQUE: 3 views are submitted. FINDINGS: Alignment is anatomic. The pedicles are intact. The transverse processes are intact. There is no s pondylolisthesis. Surgical clips in the gallbladder fossa. Mild degenerative disc disease L5-S1 with hypertrophic spurring. Sclerotic changes involving the SI joints. Correlate for sacroiliitis. IMPRESSION: 1. Mild degenerative disc disease L5-S1. 2. Correlate for sacroiliitis.
[2020-11-15 21:12] LABS: DNA Double-Stranded NEGATIVE (NEGATIVE)
[2020-11-15 21:13] LABS: Cyclic Citrull Pep IgG Unit <0.5 U/mL; Cyclic Citrullinated Pep IgG NEGATIVE (NEGATIVE)
[2020-11-15 23:53] LABS: Rheumatoid Factor, Qnt <4 IU/mL (0-15)
== END | disposition home or self-care (01) ==
LOC: LABWHC1 11:56
PROVIDERS: ATTEND Family Medicine
DX: I25.10 Atherosclerotic heart disease of native coronary artery without angina pectoris (principal); M51.37 Other intervertebral disc degeneration, lumbosacral region; M16.12 Unilateral primary osteoarthritis, left hip; R16.0 Hepatomegaly, not elsewhere classified; M06.9 Rheumatoid arthritis, unspecified
CPT/HCPCS: 36415; 72100; 73502; 85652; 86038; 86141; 86200; 86225; 86235; 86431

== ENCOUNTER 2021-01-25 14:32 | Emergency (ER) | payer OTHER ==
[2021-01-25 15:00] VITALS: BP 130/80; PULSE 105; RESP 20; TEMP 98.7
[2021-01-25] MEDS ORDERED: KETOROLAC 15 MG/ML 1 ML VIAL IVP STA (15:44)
[2021-01-25] MEDS ORDERED: ONDANSETRON 4 MG/2 ML VIAL IVP STA (15:44)
[2021-01-25] MEDS ORDERED: SODIUM CHLORIDE 0.9% 1,000 ML IV STA (15:44)
[2021-01-25 16:20] LABS: Basophils # (A) 0.1 k/uL (0-0.2); Basophils % (A) 1 %; Eosinophils # (A) 0.3 k/uL (0-0.7); Eosinophils % (A) 3 %; HCT 43.1 % (34.0-46.0); HGB 14.9 gm/dL (11.4-16.0); Lymphocytes # (A) 2.7 k/uL (1.0-4.8); Lymphocytes % (A) 25 %; MCH 33.2 pg (25.0-35.0); MCHC 34.6 g/dL (31.0-37.0); Mean Platelet Volume 9.4; Monocytes # (A) 0.5 k/uL (0-1.0); Monocytes % (A) 5 %; Neutrophils % (A) 65 %; Platelet Count 237 k/uL (150-450); RBC 4.49 m/uL (3.80-5.40); RDW 13.3 % (11.5-15.5); WBC 10.8 k/uL (3.8-10.6)
[2021-01-25 16:26] LABS: Appearance,Urine Cloudy (Clear); Bacteria,Urine Rare /hpf; Bilirubin,Urine Negative (Negative); Blood,Urine Negative (Negative); Budding Yeast,Urine Occasional /hpf; Color,Urine Yellow; Glucose,Urine (UA) Negative (Negative); Ketones,Urine 1+ (Negative); Leukocyte Esterase,Urine Negative (Negative); Mucus,Urine Rare /hpf; Nitrite,Urine Negative (Negative); Protein,Urine Negative (Negative); RBC,Urine 1 /hpf (0-5); Specific Gravity,Urine 1.013 (1.001-1.035); Squamous Epithelial Cell,Urine 7 /hpf (0-4); Urobilinogen,Urine <2.0 mg/dL (<2.0); WBC,Urine 1 /hpf (0-5)
[2021-01-25 16:29] LABS: ALT 38 U/L (4-34); AST 37 U/L (14-36); African American GFR (CKD) >90 (>60 ml/min/1.73 sqM); Albumin 4.6 g/dL (3.5-5.0); Alkaline Phosphatase 71 U/L (38-126); Amylase 58 U/L (30-110); Anion Gap 11 mmol/L; Blood Urea Nitrogen 6 mg/dL (7-17); Carbon Dioxide 24 mmol/L (22-30); Chloride 101 mmol/L (98-107); Glucose 104 mg/dL (74-99); Lipase 138 U/L (23-300); Non-African American GFR(CKD) >90 (>60 ml/min/1.73 sqM); Potassium 3.9 mmol/L (3.5-5.1); Sodium 136 mmol/L (137-145); Total Bilirubin 0.4 mg/dL (0.2-1.3); Total Protein 7.8 g/dL (6.3-8.2)
--- NOTE | 2021-01-25 16:33 | XR ---
EXAMINATION TYPE: XR KUB DATE OF EXAM: 01/25/2021 4:22 PM CLINICAL HISTORY: Right-sided pain into back. TECHNIQUE: Two Upright KUB images of the abdomen are obtained. COMPARISON: Abdominal x-ray June 04, 2020. CT abdomen and pelvis September 16, 2020. FINDINGS: Some Paucity of bowel gas. Visualize gas seen in nondistended small and large bowel loops. Prominent right hepatic lobe and/or hepatomegaly redemonstrated. Cholecystectomy clips are redemonstr ated. Displaced Surgical clips inferior to right hepatic margin again seen. No suspicious calcificati ons or free air. The lung bases are clear and the visualized osseous structures are intact. IMPRESSION: Overall nonspecific strongly favor nonobstructive bowel gas pattern. No significant change from most recent CT.
[2021-01-25] MEDS ORDERED: HYDROmorphone 1 MG/ML 1 ML SYRINGE IVP STA (17:08)
--- NOTE | 2021-01-25 18:14 | CT ---
EXAMINATION TYPE: CT abdomen pelvis w con DATE OF EXAM: 01/25/2021 COMPARISON: 09/16/2020 INDICATION: Right lower quadrant pain DLP: 1288.7 mGycm, Automated exposure control for dose reduction was used. CONTRAST: 100 mL of Isovue 300. Study performed without Oral Contrast TECHNIQUE: Axial images were obtained from above the diaphragm to the pubic rami in the axial plane a t 5 mm thick sections. Reconstructed images are reviewed on the computer in the coronal plane. FINDINGS: Limited CT sections are obtained the lung bases. The lung bases are clear. CT ABDOMEN: Liver: Is mild diminished density within the liver compatible some mild fatty infiltration. Spleen: Normal Pancreas: Normal Adrenal glands: The adrenal glands are normal. Gallbladder: Surgically absent Kidneys: No masses are evident. No hydronephrosis is present. No cysts are present. Delayed images were obtained through the kidneys, which remain unremarkable. Aorta: Normal Inferior vena cava: Normal. CT PELVIS: There may be some mild cecal wall thickening. Correlate for typhlitis.. Remaining loops of bowel appe ar unremarkable. No dilated loops of bowel are evident. A few scattered diverticuli are evident. There are loops of bowel which are incompletely distended or lack oral contrast limiting their evalua tion. Appendix: The appendix appears to be surgically absent. No suspicious inflammatory changes are eviden t. Urinary bladder: Decompressed with limited evaluation Genitourinary structures: Uterus and ovaries are not identified Osseous structures: No suspicious lytic or sclerotic lesions. IMPRESSIONS: 1. Appendix appears to be surgically absent. 2. Mild wall thickening of the cecum may be present. Consider typhlitis. Right lower quadrant otherwi se appears unremarkable.
--- NOTE | 2021-01-25 18:20 | ED ---
Abdominal Pain HPI - General Chief Complaint: Abdominal Pain Stated Complaint: Abd Pain Time Seen by Provider: 01/25/21 15:35 Source: patient, RN notes reviewed Mode of arrival: ambulatory Limitations: no limitations - History of Present Illness Initial Comments: Patient is a 45-year-old female that presents to emergency department complaining of abdominal pain in the right flank that radiates to her stomach. Patient notes that she does have a history of kidney stones and kidney infections and feels quite similar. Patient does have a history of a appendectomy and cholecystectomy. Patient notes the pain started earlier today. She denied any alleviating or aggravating factors at this time. Notes her pain is approximately 10 out of 10 with no relief. She denied any chest pain shortness of breath headache nausea vomiting diarrhea constipation fever fatigue chills. - Related Data Home Medications Medication Instructions Recorded Confirmed Dicyclomine [Bentyl] 20 mg PO TID 07/30/20 01/25/21 amLODIPine [Norvasc] 10 mg PO DAILY 09/16/20 01/25/21 Amitriptyline HCl [Elavil] 25 mg PO HS 10/03/20 01/25/21 Nitroglycerin Sl Tabs [Nitrostat] 0.4 mg SUBLINGUAL Q5M PRN 10/03/20 01/25/21 Omeprazole 20 mg PO DAILY 10/03/20 01/25/21 Acetaminophen Tab [Tylenol Tab] 500 mg PO Q6H PRN 01/25/21 01/25/21 Allergies Allergy/AdvReac Type Severity Reaction Status Date / Time codeine Allergy Rash/Hives Verified 01/25/21 17:23 diphenhydramine Allergy Rash/Hives Verified 01/25/21 17:23 [From Benadryl] methylprednisolone Allergy Itching Verified 01/25/21 17:23 [From Solu-Medrol] onion Allergy Rash/Hives Verified 01/25/21 17:23 Review of Systems ROS Statement: Those systems with pertinent positive or pertinent negative responses have been documented in the HPI. ROS Other: All systems not noted in ROS Statement are negative. 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 Carpel Tunnel bilateral wrists. Hx kidney stones. 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. Has had 2 Covid Vaccines. History of Any Multi-Drug Resistant Organisms: None Reported Past Surgical History: Appendectomy, Cholecystectomy, Heart Catheterization, Hysterectomy, Tubal Ligation Additional Past Surgical History / Comment(s): PAIN CLINIC PROCEDURES. Past Anesthesia/Blood Transfusion Reactions: No Reported Reaction Past Psychological History: Anxiety Smoking Status: Current every day smoker Past Alcohol Use History: None Reported Past Drug Use History: None Reported - Past Family History Mother Family Medical History: No Reported History Father Family Medical History: Unable to Obtain Additional Family Medical History / Comment(s): aunt and uncle mother side with CAD s/p CABG General Exam Limitations: no limitations General appearance: alert, in no apparent distress, obese Head exam: Present: atraumatic, normocephalic, normal inspection Eye exam: Present: normal appearance, PERRL, EOMI. Absent: scleral icterus, conjunctival injection, periorbital swelling ENT exam: Present: normal exam, mucous membranes moist Neck exam: Present: normal inspection Respiratory exam: Present: normal lung sounds bilaterally. Absent: respiratory distress, wheezes, rales, rhonchi, stridor Cardiovascular Exam: Present: regular rate, normal rhythm, normal heart sounds. Absent: systolic murmur, diastolic murmur, rubs, gallop, clicks GI/Abdominal exam: Present: soft, tenderness (right Flank), normal bowel sounds. Absent: distended, guarding, rebound, rigid Extremities exam: Present: normal inspection, full ROM, normal capillary refill. Absent: tenderness, pedal edema, joint swelling, calf tenderness Back exam: Present: normal inspection, CVA tenderness (R) Neurological exam: Present: alert, oriented X3 Psychiatric exam: Present: normal affect, normal mood Skin exam: Present: warm, dry, intact, normal color. Absent: rash Course Vital Signs 01/25/21 14:56 Temperature 98.7 F Pulse Rate 105 H Respiratory 20 Rate Blood Pressure 130/80 O2 Sat by Pulse 96 Oximetry Medical Decision Making - Medical Decision Making 45-year-old female complete her right flank pain with radiation of the right abdomen. Labs, 1 L normal saline, 15 mg of Toradol, 4 mg of Zofran, CT abdomen and pelvis ordered. Labs: White blood cells 10.8, rest of CBC unremarkable, CMP unremarkable, urinalysis negative for any UTI. CT shows possible typhilitis Case discussed with Dr. Colón, patient will be admitted for IV antibiotics. Dr. Ling was consulted works at the admit and recommended Zosyn be started. Zosyn ordered. - Lab Data Result diagrams: 01/25/21 16:01 01/25/21 16:01 Lab Results 01/25/21 01/25/21 01/25/21 Range/Units 16:01 16:01 16:01 WBC 10.8 H (3.8-10.6) k/uL RBC 4.49 (3.80-5.40) m/uL Hgb 14.9 (11.4-16.0) gm/dL Hct 43.1 (34.0-46.0) % MCV 96.0 (80.0-100.0) fL MCH 33.2 (25.0-35.0) pg MCHC 34.6 (31.0-37.0) g/dL RDW 13.3 (11.5-15.5) % Plt Count 237 (150-450) k/uL MPV 9.4 Neutrophils % 65 % Lymphocytes % 25 % Monocytes % 5 % Eosinophils % 3 % Basophils % 1 % Neutrophils # 7.0 (1.3-7.7) k/uL Lymphocytes # 2.7 (1.0-4.8) k/uL Monocytes # 0.5 (0-1.0) k/uL Eosinophils # 0.3 (0-0.7) k/uL Basophils # 0.1 (0-0.2) k/uL Sodium 136 L (137-145) mmol/L Potassium 3.9 (3.5-5.1) mmol/L Chloride 101 (98-107) mmol/L Carbon Dioxide 24 (22-30) mmol/L Anion Gap 11 mmol/L BUN 6 L (7-17) mg/dL Creatinine 0.57 (0.52-1.04) mg/dL Est GFR (CKD-EPI)AfAm >90 (>60 ml/min/1.73 sqM) Est GFR (CKD-EPI)NonAf >90 (>60 ml/min/1.73 sqM) Glucose 104 H (74-99) mg/dL Calcium 10.0 (8.4-10.2) mg/dL Total Bilirubin 0.4 (0.2-1.3) mg/dL AST 37 H (14-36) U/L ALT 38 H (4-34) U/L Alkaline Phosphatase 71 (38-126) U/L Total Protein 7.8 (6.3-8.2) g/dL Albumin 4.6 (3.5-5.0) g/dL Amylase 58 (30-110) U/L Lipase 138 (23-300) U/L Urine Color Yellow Urine Appearance Cloudy H (Clear) Urine pH 6.0 (5.0-8.0) Ur Specific [place] 1.013 (1.001-1.035) Urine Protein Negative (Negative) Urine Glucose (UA) Negative (Negative) Urine Ketones 1+ H (Negative) Urine Blood Negative (Negative) Urine Nitrite Negative (Negative) Urine Bilirubin Negative (Negative) Urine Urobilinogen <2.0 (<2.0) mg/dL Ur Leukocyte Esterase Negative (Negative) Urine RBC 1 (0-5) /hpf Urine WBC 1 (0-5) /hpf Ur Squamous Epith Cells 7 H (0-4) /hpf Urine Bacteria Rare H (None) /hpf Urine Mucus Rare H (None) /hpf Urine Yeast (Budding) Occasional H (None) /hpf - Radiology Data Radiology results: report reviewed, image reviewed CT the abdomen and pelvis: Appendix appears to be surgically absent. Mild wall thickening of the cecum may be present. Consider typhilitis. Right lower quadrant otherwise on. Unremarkable. KUB: Overall nonspecific strongly favor nonobstructive bowel gas pattern. No significant change from most recent CT. Disposition Clinical Impression: Typhlitis Disposition: ADMITTED IP TO THIS [facility] Condition: Stable Is patient prescribed a controlled substance at d/c from ED?: No Referrals: Miguel Isbell [Primary Care Provider] - 1-2 days Time of Disposition: 18:40
[2021-01-25] MEDS ORDERED: PIPERACILLIN-TAZOBACTAM 3.375 GM in SODIUM CHLORIDE 0.9% 100 ML IVPB STA (18:39)
[2021-01-25] MEDS ORDERED: MORPHINE SULFATE 4 MG/ML SYRINGE IV PRN (18:40)
[2021-01-25] MEDS ORDERED: ONDANSETRON 4 MG/2 ML VIAL IVP PRN (18:40)
[2021-01-25] MEDS ORDERED: NALOXONE 0.4 MG/ML 1 ML VIAL IV PRN (18:40)
[2021-01-25] MEDS ORDERED: SODIUM CHLORIDE 0.9% 1,000 ML IV SCH (18:45)
--- NOTE | 2021-01-25 18:56 | ED ---
Medical Decision Making - Medical Decision Making After starting antibiotics patient states that she is unable to stay in the hospital due to having to take her 1-year-old grandson the [facility] for a [facility] ultrasound. Patient was educated on risks of leaving AMA with medical emergency and need for further evaluation with IV antibiotics. Patient is adamant that she cannot stay and will not stay. Patient was informed that she will sign an AMA form and assumed full liability for any outcome. Case discussed with Dr. Colón - Lab Data Result diagrams: 01/25/21 16:01 01/25/21 16:01 Lab Results 01/25/21 01/25/21 01/25/21 Range/Units 16: 16: 16:01 WBC 10.8 H (3.8-10.6) k/uL RBC 4.49 (3.80-5.40) m/uL Hgb 14.9 (11.4-16.0) gm/dL Hct 43.1 (34.0-46.0) % MCV 96.0 (80.0-100.0) fL MCH 33.2 (25.0-35.0) pg MCHC 34.6 (31.0-37.0) g/dL RDW 13.3 (11.5-15.5) % Plt Count 237 (150-450) k/uL MPV 9.4 Neutrophils % 65 % Lymphocytes % 25 % Monocytes % 5 % Eosinophils % 3 % Basophils % 1 % Neutrophils # 7.0 (1.3-7.7) k/uL Lymphocytes # 2.7 (1.0-4.8) k/uL Monocytes # 0.5 (0-1.0) k/uL Eosinophils # 0.3 (0-0.7) k/uL Basophils # 0.1 (0-0.2) k/uL Sodium 136 L (137-145) mmol/L Potassium 3.9 (3.5-5.1) mmol/L Chloride 101 (98-107) mmol/L Carbon Dioxide 24 (22-30) mmol/L Anion Gap 11 mmol/L BUN 6 L (7-17) mg/dL Creatinine 0.57 (0.52-1.04) mg/dL Est GFR (CKD-EPI)AfAm >90 (>60 ml/min/1.73 sqM) Est GFR (CKD-EPI)NonAf >90 (>60 ml/min/1.73 sqM) Glucose 104 H (74-99) mg/dL Calcium 10.0 (8.4-10.2) mg/dL Total Bilirubin 0.4 (0.2-1.3) mg/dL AST 37 H (14-36) U/L ALT 38 H (4-34) U/L Alkaline Phosphatase 71 (38-126) U/L Total Protein 7.8 (6.3-8.2) g/dL Albumin 4.6 (3.5-5.0) g/dL Amylase 58 (30-110) U/L Lipase 138 (23-300) U/L Urine Color Yellow Urine Appearance Cloudy H (Clear) Urine pH 6.0 (5.0-8.0) Ur Specific [place] 1.013 (1.001-1.035) Urine Protein Negative (Negative) Urine Glucose (UA) Negative (Negative) Urine Ketones 1+ H (Negative) Urine Blood Negative (Negative) Urine Nitrite Negative (Negative) Urine Bilirubin Negative (Negative) Urine Urobilinogen <2.0 (<2.0) mg/dL Ur Leukocyte Esterase Negative (Negative) Urine RBC 1 (0-5) /hpf Urine WBC 1 (0-5) /hpf Ur Squamous Epith Cells 7 H (0-4) /hpf Urine Bacteria Rare H (None) /hpf Urine Mucus Rare H (None) /hpf Urine Yeast (Budding) Occasional H (None) /hpf Disposition Clinical Impression: Typhlitis Disposition: Left Against Medical Advice Condition: Stable Is patient prescribed a controlled substance at d/c from ED?: No Referrals: Miguel Isbell [Primary Care Provider] - 1-2 days Time of Disposition: 18:56
== END 2021-01-25 19:46 | disposition left against medical advice (07) ==
LOC: EC 14:32
DX: K37 Unspecified appendicitis (principal); F17.200 Nicotine dependence, unspecified, uncomplicated; Z87.442 Personal history of urinary calculi; Z88.8 Allergy status to other drugs, medicaments and biological substances; Z90.49 Acquired absence of other specified parts of digestive tract; Z88.5 Allergy status to narcotic agent; Z91.018 Allergy to other foods
CPT/HCPCS: 36415; 74018; 74177; 80053; 81001; 82150; 83690; 85025; 96361; 96365; 96375; 99284

== ENCOUNTER → 2021-01-31 | Outpatient (CLI) | payer OTHER ==
--- NOTE | 2021-01-31 10:53 | FL ---
EXAMINATION TYPE: FL UGI w small bowel DATE OF EXAM: 01/31/2021 COMPARISON: CT abdomen and pelvis 6 days ago HISTORY: Epigastric pain when eating and drinking. History of hiatal hernia diagnosed on endoscopy. P atient been on antireflux medication without help to symptoms TECHNIQUE: A double contrast UGI study is performed with small bowel follow through. A total of 47 seconds of fluoroscopic time was utilized during procedure and 39 images obtained. FINDINGS: Butt Trimmer image of the abdomen shows overall nonobstructive bowel gas pattern. Cholecystectomy clips are redemonstrated. Surgical clips right lower quadrant from appendectomy redemonstrated. The esophagus shows satisfactory motility and emptying into the stomach. No diverticula. Small slidin g-type hiatal hernia. No stricture or mass. The stomach shows satisfactory distensibility and peristalsis. Mild to moderate gastric fold prominen ce greatest in the fundus. No evidence of any mass or focal ulcer disease. Several episodes of esopha geal reflux are seen during real time performance of this study. The duodenal bulb and sweep are unremarkable. The small bowel study shows normal transit to the colon in less than 30 minutes. There is normal muc osal fold pattern throughout the small bowel. There is no evidence of any stricture or filling defec t noted. The terminal ileum is within normal limits. IMPRESSION: Mild to moderate fundal gastritis with moderate gastroesophageal reflux and small slidin g-type hiatal hernia. Normal small bowel series.
== END | disposition home or self-care (01) ==
LOC: RADFLMAIN 09:03
PROVIDERS: ATTEND Internal Medicine Gastroenterology
DX: K29.70 Gastritis, unspecified, without bleeding (principal); K44.9 Diaphragmatic hernia without obstruction or gangrene; K21.9 Gastro-esophageal reflux disease without esophagitis
CPT/HCPCS: 74240; 74248

== ENCOUNTER 2021-02-15 10:02 | Emergency (ER) | payer OTHER ==
[2021-02-15 10:38] VITALS: TEMP 97.5
[2021-02-15] MEDS ORDERED: MORPHINE SULFATE 2 MG/ML SYRINGE IVP STA (10:41)
[2021-02-15] MEDS ORDERED: ASPIRIN 81 MG PO STA (10:41)
--- NOTE | 2021-02-15 10:54 | ED ---
Chest Pain HPI - General Chief Complaint: Chest Pain Stated Complaint: Chest Pain Time Seen by Provider: 02/15/21 10:31 Source: patient, EMS, RN notes reviewed, old records reviewed Mode of arrival: EMS Limitations: no limitations - History of Present Illness Initial Comments: Patient is a 45-year-old female presenting to the emergency department via EMS with complaints of chest pain that started when she woke up this morning. She states it woke her up out of her sleep, it is in the middle of her chest and it hurts to take a deep breath. She states she took 2 nitro tablets, did not help so she called EMS. Patient denies any abdominal pain, nausea or vomiting. She denies any recent fevers or chills, no cough or congestion or cold-like symptom s. She does have history of heart disease and also anxiety. She denies any radiation of this pain. She denies taking blood thinners. EMS did give her a full-strength aspirin in the EMS prior to arrival. She has no further complaints. Patient's vital signs are stable upon arrival. - Related Data Home Medications Medication Instructions Recorded Confirmed Dicyclomine [Bentyl] 20 mg PO TID 07/30/20 02/15/21 amLODIPine [Norvasc] 10 mg PO DAILY 09/16/20 02/15/21 Nitroglycerin Sl Tabs [Nitrostat] 0.4 mg SUBLINGUAL Q5M PRN 10/03/20 02/15/21 Amitriptyline HCl [Elavil] 50 mg PO HS 02/15/21 02/15/21 Celecoxib [CeleBREX] 200 mg PO DAILY 02/15/21 02/15/21 Ondansetron Odt [Zofran Odt] 4 mg PO Q12HR PRN 02/15/21 02/15/21 Allergies Allergy/AdvReac Type Severity Reaction Status Date / Time codeine Allergy Rash/Hives Verified 02/15/21 11:09 diphenhydramine Allergy Rash/Hives Verified 02/15/21 11:09 [From Benadryl] methylprednisolone Allergy Itching Verified 02/15/21 11:09 [From Solu-Medrol] onion Allergy Rash/Hives Verified 02/15/21 11:09 Review of Systems ROS Statement: Those systems with pertinent positive or pertinent negative responses have been documented in the HPI. ROS Other: All systems not noted in ROS Statement are negative. EKG Findings - EKG Comments: EKG Findings:: Normal sinus rhythm, normal ECG, no signs of acute ST segment elevation. similar to previous on 10-03-20. Ventricular rate 90, IL interval 130, QT 380. 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 Carpel Tunnel bilateral wrists. Hx kidney stones. 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. Has had 2 Covid Vaccines. History of Any Multi-Drug Resistant Organisms: None Reported Past Surgical History: Appendectomy, Cholecystectomy, Heart Catheterization, Hysterectomy, Tubal Ligation Additional Past Surgical History / Comment(s): PAIN CLINIC PROCEDURES. Past Anesthesia/Blood Transfusion Reactions: No Reported Reaction Past Psychological History: Anxiety Smoking Status: Current every day smoker Past Alcohol Use History: None Reported Past Drug Use History: None Reported - Past Family History Mother Family Medical History: No Reported History Father Family Medical History: Unable to Obtain Additional Family Medical History / Comment(s): aunt and uncle mother side with CAD s/p CABG General Exam - General Exam Comments Initial Comments: GENERAL: Patient is well-developed and well-nourished. Patient is nontoxic and in mild distress. HEAD: Atraumatic, normocephalic. EYES: Pupils equal round and reactive to light, extraocular movements intact, sclera anicteric, conjunctiva are normal. Eyelids were unremarkable. ENT: Nares patent, oropharynx clear without exudates. Moist mucous membranes. NECK: Normal range of motion, supple without lymphadenopathy or JVD. LUNGS: Unlabored respirations. Breath sounds clear to auscultation bilaterally and equal. No wheezes rales or rhonchi. HEART: Regular rate and rhythm without murmurs, rubs or gallops. Pain with anterior chest pressure and deep breathing. ABDOMEN: Soft, nontender, normoactive bowel sounds. No guarding, no rebound. No masses appreciated. : Deferred MUSCULOSKELETAL: Normal extremities with adequate strength and normal range of motion, no pitting or edema. No clubbing or cyanosis. NEUROLOGICAL: Patient is alert and oriented x 3. Motor and sensory are also intact. Cranial nerves II through XII grossly intact. Symmetrical smile. Normal speech, normal gait. PSYCH: Normal mood, normal affect. SKIN: Warm, Dry, normal turgor, no rashes or lesions noted. Course Vital Signs 02/15/21 02/15/21 10:29 11:14 Temperature 97.5 F L Pulse Rate 85 Respiratory 20 24 Rate Blood Pressure 127/[address] [facility] Patient is a 45-year-old female here with history of heart disease, presenting via EMS with sudden onset of chest pain when she woke up this morning. She does have history of anxiety and was not sure this was a panic attack versus heart related. Her vital signs are stable upon arrival, EKG read normal sinus rhythm. Strength aspirin in the EMS prior to arrival. Since workup including labs, troponin are completely normal. Chest x-ray showed no acute process, rapid coitus negative. Did give patient a small dose of morphine for discomfort, she been resting comfortably. Her vital signs remained stable. Patient states she feels much better and feels like it most likely was a panic attack. I did recommend to the patient to get another troponin in about one hour, patient did not want to wait for this. I also recommended admission for cardiac workup, patient also refused this. She states she feels fine and wants to go home. She will follow-up with her PCP regarding her anxiety. She states she is alert and anxiety medication is not working. I discussed with her the risk of this being possible disease, she understand this risk and continues to want to go home. Return parameters were discussed with the patient and she verbalized understanding. Case discussed with Dr. Painter. Disposition Clinical Impression: Atypical chest pain, Anxiety Disposition: HOME SELF-CARE Condition: Stable Instructions (If sedation given, give patient instructions): Chest Pain (ED) Additional Instructions: Please return to the Emergency Department if symptoms worsen or any other concerns. I strongly recommend following up with your PCP in the next 1-3 days. Is patient prescribed a controlled substance at d/c from ED?: No Referrals: Miguel Isbell [Primary Care Provider] - 1-2 days Time of Disposition: 12:45
[2021-02-15 11:20] LABS: Basophils # (A) 0.1 k/uL (0-0.2); Basophils % (A) 1 %; Eosinophils # (A) 0.6 k/uL (0-0.7); Eosinophils % (A) 5 %; HCT 43.4 % (34.0-46.0); HGB 14.8 gm/dL (11.4-16.0); Lymphocytes # (A) 2.2 k/uL (1.0-4.8); Lymphocytes % (A) 20 %; MCH 33.3 pg (25.0-35.0); MCHC 34.2 g/dL (31.0-37.0); MCV 97.2 fL (80.0-100.0); Mean Platelet Volume 9.3; Monocytes # (A) 0.4 k/uL (0-1.0); Monocytes % (A) 4 %; Neutrophils # (A) 7.3 k/uL (1.3-7.7); Neutrophils % (A) 68 %; Platelet Count 254 k/uL (150-450); RBC 4.46 m/uL (3.80-5.40); RDW 13.3 % (11.5-15.5); WBC 10.7 k/uL (3.8-10.6)
[2021-02-15 11:36] LABS: ALT 26 U/L (4-34); AST 28 U/L (14-36); African American GFR (CKD) >90 (>60 ml/min/1.73 sqM); Albumin 4.2 g/dL (3.5-5.0); Alkaline Phosphatase 71 U/L (38-126); Anion Gap 12 mmol/L; Blood Urea Nitrogen 10 mg/dL (7-17); Calcium 10.3 mg/dL (8.4-10.2); Carbon Dioxide 21 mmol/L (22-30); Chloride 105 mmol/L (98-107); Glucose 129 mg/dL (74-99); Magnesium 1.6 mg/dL (1.6-2.3); Non-African American GFR(CKD) >90 (>60 ml/min/1.73 sqM); Sodium 138 mmol/L (137-145); Total Bilirubin 0.4 mg/dL (0.2-1.3); Total Protein 7.2 g/dL (6.3-8.2)
[2021-02-15 11:55] LABS: INR 0.9 (<1.2)
[2021-02-15 11:59] LABS: Partial Thromboplastin Time 20.5 sec (22.0-30.0)
--- NOTE | 2021-02-15 12:04 | XR ---
EXAMINATION TYPE: XR chest 2V DATE OF EXAM: 02/15/2021 COMPARISON: Chest x-ray October 03, 2020 HISTORY: Chest pain and panic attack. TECHNIQUE: Frontal and lateral views of the chest are obtained. FINDINGS: Slightly diminished inspiration on current study. There is no suspicious focal air space o pacity, pleural effusion, or pneumothorax seen. The cardiac silhouette size is stable and within nor mal limits. The osseous structures are intact. Cholecystectomy clips are present. Overlying EKG sofia ds redemonstrated. IMPRESSION: No acute process. No significant change from prior.
[2021-02-15 12:56] VITALS: BP 126/74; PULSE 105; RESP 18
== END 2021-02-15 12:50 | disposition home or self-care (01) ==
LOC: EC 10:02
DX: R07.89 Other chest pain (principal); F41.9 Anxiety disorder, unspecified; G43.909 Migraine, unspecified, not intractable, without status migrainosus; I25.759 Atherosclerosis of native coronary artery of transplanted heart with unspecified angina pectoris; Z86.73 Personal history of transient ischemic attack (TIA), and cerebral infarction without residual deficits; Z79.899 Other long term (current) drug therapy; Z88.8 Allergy status to other drugs, medicaments and biological substances; Z88.5 Allergy status to narcotic agent; Z91.018 Allergy to other foods; Z20.822 Contact with and (suspected) exposure to COVID-19
CPT/HCPCS: 36415; 93005; 80053; 83735; 84484; 85025; 85610; 85730; 87635; 71046; 99285; 96374; J2270

== ENCOUNTER 2021-05-23 17:13 | Emergency (ER) | payer OTHER ==
[2021-05-23 17:21] VITALS: TEMP 98.5
[2021-05-23 18:08] LABS: Basophils # (A) 0.1 k/uL (0-0.2); Basophils % (A) 1 %; Eosinophils # (A) 0.6 k/uL (0-0.7); Eosinophils % (A) 5 %; HCT 41.9 % (34.0-46.0); HGB 14.3 gm/dL (11.4-16.0); Lymphocytes # (A) 2.8 k/uL (1.0-4.8); Lymphocytes % (A) 25 %; MCH 33.9 pg (25.0-35.0); MCHC 34.1 g/dL (31.0-37.0); MCV 99.6 fL (80.0-100.0); Mean Platelet Volume 9.4; Monocytes # (A) 0.4 k/uL (0-1.0); Monocytes % (A) 4 %; Neutrophils # (A) 7.2 k/uL (1.3-7.7); Neutrophils % (A) 64 %; Platelet Count 308 k/uL (150-450); RBC 4.21 m/uL (3.80-5.40); RDW 13.2 % (11.5-15.5); WBC 11.2 k/uL (3.8-10.6)
--- NOTE | 2021-05-23 18:14 | ED ---
General Adult HPI - General Chief complaint: Abdominal Pain Stated complaint: Abdominal/Back Pain Time Seen by Provider: 05/23/21 18:05 Source: patient, RN notes reviewed, old records reviewed Mode of arrival: ambulatory Limitations: no limitations - History of Present Illness Initial comments: 45-year-old female, nontoxic appearing, presents with left flank pain for 2 hours. She states she was nauseated last night. She denies any fevers. She does have history of kidney stones on the right. -: hour(s) (2) Location: left (flank) Severity scale (1-10): 9 Quality: constant Consistency: constant Improves with: none Worsens with: none Associated Symptoms: nausea/vomiting, other (diarrhea) Treatments Prior to Arrival: NSAID - Related Data Home Medications Medication Instructions Recorded Confirmed Dicyclomine [Bentyl] 20 mg PO TID 07/30/20 05/23/21 amLODIPine [Norvasc] 10 mg PO DAILY 09/16/20 05/23/21 Nitroglycerin Sl Tabs [Nitrostat] 0.4 mg SUBLINGUAL Q5M PRN 10/03/20 05/23/21 Celecoxib [CeleBREX] 200 mg PO DAILY 02/15/21 05/23/21 Amitriptyline HCl [Elavil] 75 mg PO HS 05/23/21 05/23/21 Allergies Allergy/AdvReac Type Severity Reaction Status Date / Time codeine Allergy Rash/Hives Verified 05/23/21 18:42 diphenhydramine Allergy Rash/Hives Verified 05/23/21 18:42 [From Benadryl] methylprednisolone Allergy Itching Verified 05/23/21 18:42 [From Solu-Medrol] onion Allergy Rash/Hives Verified 05/23/21 18:42 Review of Systems ROS Statement: Those systems with pertinent positive or pertinent negative responses have been documented in the HPI. ROS Other: All systems not noted in ROS Statement are negative. Past Medical History Past Medical History: Coronary Artery Disease (CAD), Chest Pain / Angina, C VA/TIA, Musculoskeletal Disorder, Osteoarthritis (OA), Seizure Disorder Additional Past Medical History / Comment(s): Degenerative Disc Disease, Migraines - "BLACK-OUT'S WHEN SEVERE." HX "BRIEF STROKE FEW YEARS AGO". Carpel Tunnel bilateral wrists. Hx kidney stones. 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. Has had 2 Covid Vaccines. History of Any Multi-Drug Resistant Organisms: None Reported Past Surgical History: Appendectomy, Cholecystectomy, Heart Catheterization, Hysterectomy, Tubal Ligation Additional Past Surgical History / Comment(s): PAIN CLINIC PROCEDURES. Past Anesthesia/Blood Transfusion Reactions: No Reported Reaction Past Psychological History: Anxiety Smoking Status: Current every day smoker Past Alcohol Use History: None Reported Past Drug Use History: None Reported - Past Family History Mother Family Medical History: No Reported History Father Family Medical History: Unable to Obtain Additional Family Medical History / Comment(s): aunt and uncle mother side with CAD s/p CABG General Exam Limitations: no limitations General appearance: alert, in no apparent distress Eye exam: Present: normal appearance ENT exam: Present: mucous membranes moist Cardiovascular Exam: Present: regular rate Neurological exam: Present: alert, oriented X3 Psychiatric exam: Present: normal affect, normal mood Skin exam: Present: warm, dry, normal color. Absent: cyanosis, diaphoretic Course Vital Signs 05/23/21 05/23/21 05/23/21 17:19 20:00 21:02 Temperature 98.5 F Pulse Rate 85 87 87 Respiratory 16 18 16 Rate Blood Pressure 126/70 107/71 171/71 O2 Sat by Pulse 99 97 98 Oximetry Medical Decision Making - Medical Decision Making Patient presents with nausea last night and left flank pain for 2 hours. No fevers. She does have history of kidney stones. CBC and electrolytes are unremarkable. Lactic acid is negative. Urinalysis shows small blood, with 35 red blood cells. No evidence of urinary tract infection. Renal ultrasound shows no evidence of renal mass or obstruction, no hydronephrosis or masses seen. KUB x-ray shows no intestinal obstruction, no calcifications of the kidneys. Patient was given IV fluids, Zofran for nausea, and Toradol. Patient states she did not get any relief with Toradol. She was given 2 doses of fentanyl with pain relief. Vital signs are stable and she has been afebrile. She is feeling much better and ready be discharged home with her family member. This is likely a passed kidney stone and patient will be referred to her urologist. She is agreeable to the discharge. She was directed to increase her fluid intake. Return to the emergency room with any new or concerning symptoms. - Lab Data Result diagrams: 05/23/21 18:01 05/23/21 18:01 Lab Results 05/23/21 05/23/21 05/23/21 Range/Units 18:01 18:01 18:01 WBC 11.2 H (3.8-10.6) k/uL RBC 4.21 (3.80-5.40) m/uL Hgb 14.3 (11.4-16.0) gm/dL Hct 41.9 (34.0-46.0) % MCV 99.6 (80.0-100.0) fL MCH 33.9 (25.0-35.0) pg MCHC 34.1 (31.0-37.0) g/dL RDW 13.2 (11.5-15.5) % Plt Count 308 (150-450) k/uL MPV 9.4 Neutrophils % 64 % Lymphocytes % 25 % Monocytes % 4 % Eosinophils % 5 % Basophils % 1 % Neutrophils # 7.2 (1.3-7.7) k/uL Lymphocytes # 2.8 (1.0-4.8) k/uL Monocytes # 0.4 (0-1.0) k/uL Eosinophils # 0.6 (0-0.7) k/uL Basophils # 0.1 (0-0.2) k/uL Sodium 138 (137-145) mmol/L Potassium 4.5 (3.5-5.1) mmol/L Chloride 104 (98-107) mmol/L Carbon Dioxide 22 (22-30) mmol/L Anion Gap 12 mmol/L BUN 12 (7-17) mg/dL Creatinine 0.52 (0.52-1.04) mg/dL Est GFR (CKD-EPI)AfAm >90 (>60 ml/min/1.73 sqM) Est GFR (CKD-EPI)NonAf >90 (>60 ml/min/1.73 sqM) Glucose 149 H (74-99) mg/dL Plasma Lactic Acid Mikael (0.7-2.0) mmol/L Calcium 9.3 (8.4-10.2) mg/dL Total Bilirubin 0.7 (0.2-1.3) mg/dL AST 38 H (14-36) U/L ALT 29 (4-34) U/L Alkaline Phosphatase 49 (38-126) U/L Total Protein 7.9 (6.3-8.2) g/dL Albumin 4.6 (3.5-5.0) g/dL Urine Color Yellow Urine Appearance Clear (Clear) Urine pH 6.5 (5.0-8.0) Ur Specific [place] 1.030 (1.001-1.035) Urine Protein 1+ H (Negative) Urine Glucose (UA) Negative (Negative) Urine Ketones 1+ H (Negative) Urine Blood Small H (Negative) Urine Nitrite Negative (Negative) Urine Bilirubin Negative (Negative) Urine Urobilinogen 3.0 (<2.0) mg/dL Ur Leukocyte Esterase Trace H (Negative) Urine RBC 35 H (0-5) /hpf Urine WBC 1 (0-5) /hpf Ur Squamous Epith Cells 2 (0-4) /hpf Urine Mucus Many H (None) /hpf 05/23/21 Range/Units 19:03 WBC (3.8-10.6) k/uL RBC (3.80-5.40) m/uL Hgb (11.4-16.0) gm/dL Hct (34.0-46.0) % MCV (80.0-100.0) fL MCH (25.0-35.0) pg MCHC (31.0-37.0) g/dL RDW (11.5-15.5) % Plt Count (150-450) k/uL MPV Neutrophils % % Lymphocytes % % Monocytes % % Eosinophils % % Basophils % % Neutrophils # (1.3-7.7) k/uL Lymphocytes # (1.0-4.8) k/uL Monocytes # (0-1.0) k/uL Eosinophils # (0-0.7) k/uL Basophils # (0-0.2) k/uL Sodium (137-145) mmol/L Potassium (3.5-5.1) mmol/L Chloride (98-107) mmol/L Carbon Dioxide (22-30) mmol/L Anion Gap mmol/L BUN (7-17) mg/dL Creatinine (0.52-1.04) mg/dL Est GFR (CKD-EPI)AfAm (>60 ml/min/1.73 sqM) Est GFR (CKD-EPI)NonAf (>60 ml/min/1.73 sqM) Glucose (74-99) mg/dL Plasma Lactic Acid Mikael 1.1 (0.7-2.0) mmol/L Calcium (8.4-10.2) mg/dL Total Bilirubin (0.2-1.3) mg/dL AST (14-36) U/L ALT (4-34) U/L Alkaline Phosphatase (38-126) U/L Total Protein (6.3-8.2) g/dL Albumin (3.5-5.0) g/dL Urine Color Urine Appearance (Clear) Urine pH (5.0-8.0) Ur Specific [place] (1.001-1.035) Urine Protein (Negative) Urine Glucose (UA) (Negative) Urine Ketones (Negative) Urine Blood (Negative) Urine Nitrite (Negative) Urine Bilirubin (Negative) Urine Urobilinogen (<2.0) mg/dL Ur Leukocyte Esterase (Negative) Urine RBC (0-5) /hpf Urine WBC (0-5) /hpf Ur Squamous Epith Cells (0-4) /hpf Urine Mucus (None) /hpf Disposition Clinical Impression: Flank pain Disposition: HOME SELF-CARE Condition: Good Instructions (If sedation given, give patient instructions): Flank Pain (ED) Additional Instructions: Increase your fluid intake. Follow-up with your primary care doctor this week. Is patient prescribed a controlled substance at d/c from ED?: No Referrals: Miguel Isbell [Primary Care Provider] - 1-2 days Time of Disposition: 20:58
[2021-05-23 18:17] LABS: ALT 29 U/L (4-34); AST 38 U/L (14-36); African American GFR (CKD) >90 (>60 ml/min/1.73 sqM); Albumin 4.6 g/dL (3.5-5.0); Alkaline Phosphatase 49 U/L (38-126); Anion Gap 12 mmol/L; Blood Urea Nitrogen 12 mg/dL (7-17); Calcium 9.3 mg/dL (8.4-10.2); Carbon Dioxide 22 mmol/L (22-30); Chloride 104 mmol/L (98-107); Glucose 149 mg/dL (74-99); Non-African American GFR(CKD) >90 (>60 ml/min/1.73 sqM); Potassium 4.5 mmol/L (3.5-5.1); Sodium 138 mmol/L (137-145); Total Bilirubin 0.7 mg/dL (0.2-1.3); Total Protein 7.9 g/dL (6.3-8.2)
[2021-05-23 18:20] LABS: Appearance,Urine Clear (Clear); Bilirubin,Urine Negative (Negative); Blood,Urine Small (Negative); Color,Urine Yellow; Glucose,Urine (UA) Negative (Negative); Ketones,Urine 1+ (Negative); Leukocyte Esterase,Urine Trace (Negative); Mucus,Urine Many /hpf; Nitrite,Urine Negative (Negative); PH, Urine 6.5 (5.0-8.0); Protein,Urine 1+ (Negative); RBC,Urine 35 /hpf (0-5); Squamous Epithelial Cell,Urine 2 /hpf (0-4); WBC,Urine 1 /hpf (0-5)
[2021-05-23] MEDS ORDERED: KETOROLAC 15 MG/ML 1 ML VIAL IVP STA (18:43)
[2021-05-23] MEDS ORDERED: ONDANSETRON 4 MG/2 ML VIAL IVP STA (18:43)
[2021-05-23] MEDS ORDERED: SODIUM CHLORIDE 0.9% 1,000 ML IV STA (18:43)
[2021-05-23] MEDS ORDERED: fentaNYL (PF) 50 MCG/ML 2 ML AMP IVP STA ×2 (18:45→19:49)
--- NOTE | 2021-05-23 19:46 | US ---
EXAMINATION TYPE: US renals and bladder DATE OF EXAM: 05/23/2021 COMPARISON: CT 2020 CLINICAL HISTORY: uti, back pain, hx of kidney stones. Patient complains of left flank pain EXAM MEASUREMENTS: Right Kidney: 11.4 x 4.4 x 4.8 cm Left Kidney: 11.9 x 4.9 x cm Right Kidney: No hydronephrosis or masses seen Left Kidney: No hydronephrosis or masses seen Bladder: Bladder area scanned; patient voided just prior to exam Bilateral Jets seen: No IMPRESSION: Bladder was empty during the exam. No evidence of renal mass or obstruction. No free fluid.
--- NOTE | 2021-05-23 19:47 | XR ---
EXAMINATION TYPE: XR KUB DATE OF EXAM: 05/23/2021 COMPARISON: January 25, 2021 HISTORY: Flank pain TECHNIQUE: 2 view FINDINGS: 2 upright views are obtained and show no sign of intestinal obstruction or pneumoperitoneum . Fecal pattern is normal. There are clips from cholecystectomy. Lung bases are clear. There are no c alcifications over the kidneys. There are surgical clips in the right lower quadrant. IMPRESSION: Nonacute abdomen. No adverse change.
[2021-05-23 20:16] VITALS: PULSE 87
[2021-05-23 21:05] VITALS: BP 171/71; RESP 16
== END 2021-05-23 21:05 | disposition home or self-care (01) ==
LOC: EC 17:13
DX: Z88.5 Allergy status to narcotic agent (principal); Z88.8 Allergy status to other drugs, medicaments and biological substances; Z88.1 Allergy status to other antibiotic agents; Z91.018 Allergy to other foods; Z86.73 Personal history of transient ischemic attack (TIA), and cerebral infarction without residual deficits; F17.200 Nicotine dependence, unspecified, uncomplicated; R10.9 Unspecified abdominal pain
CPT/HCPCS: 99284; 96374; 96375; 96361; 36415; 80053; 83605; 85025; 81001; 74018; 76770; J2405; J3010; J1885

== ENCOUNTER → 2021-07-19 | Outpatient (CLI) | payer OTHER | END | disposition home or self-care (01) | LOC: LABWHC1 12:28 | PROVIDERS: ATTEND Psychiatry & Neurology Neurology | DX: I49.9 Cardiac arrhythmia, unspecified (principal) | CPT/HCPCS: 36415; 93005 ==

== ENCOUNTER 2021-07-26 19:00 | Emergency (ER) | payer OTHER ==
[2021-07-26 20:23] VITALS: BP 135/78; PULSE 65; RESP 18; TEMP 98.2
[2021-07-26 20:49] LABS: Appearance,Urine Clear (Clear); Bilirubin,Urine Negative (Negative); Blood,Urine Negative (Negative); Color,Urine Yellow; Glucose,Urine (UA) Negative (Negative); Ketones,Urine Negative (Negative); Leukocyte Esterase,Urine Negative (Negative); Nitrite,Urine Negative (Negative); Protein,Urine Trace (Negative); Specific Gravity,Urine 1.028 (1.001-1.035)
[2021-07-26 21:25] LABS: Basophils # (A) 0.1 k/uL (0-0.2); Basophils % (A) 1 %; Eosinophils # (A) 0.3 k/uL (0-0.7); Eosinophils % (A) 2 %; HCT 43.5 % (34.0-46.0); Lymphocytes # (A) 3.6 k/uL (1.0-4.8); Lymphocytes % (A) 21 %; MCHC 32.3 g/dL (31.0-37.0); Mean Platelet Volume 9.9; Monocytes # (A) 0.8 k/uL (0-1.0); Monocytes % (A) 5 %; Neutrophils % (A) 70 %; Platelet Count 277 k/uL (150-450); RBC 4.53 m/uL (3.80-5.40); RDW 12.9 % (11.5-15.5)
[2021-07-26 21:35] LABS: ALT 31 U/L (4-34); AST 31 U/L (14-36); African American GFR (CKD) >90 (>60 ml/min/1.73 sqM); Albumin 4.4 g/dL (3.5-5.0); Alkaline Phosphatase 58 U/L (38-126); Anion Gap 8 mmol/L; Blood Urea Nitrogen 11 mg/dL (7-17); Calcium 9.5 mg/dL (8.4-10.2); Carbon Dioxide 25 mmol/L (22-30); Chloride 103 mmol/L (98-107); Glucose 101 mg/dL (74-99); Non-African American GFR(CKD) >90 (>60 ml/min/1.73 sqM); Potassium 4.5 mmol/L (3.5-5.1); Sodium 136 mmol/L (137-145); Total Bilirubin 0.4 mg/dL (0.2-1.3); Total Protein 7.5 g/dL (6.3-8.2)
[2021-07-26] MEDS ORDERED: SODIUM CHLORIDE 0.9% 1,000 ML IV ONE (22:01)
[2021-07-26] MEDS ORDERED: ONDANSETRON 4 MG/2 ML VIAL IVP STA (22:04)
--- NOTE | 2021-07-26 22:05 | ED ---
General Adult HPI - General Chief complaint: Back Pain/Injury Stated complaint: Kidney Pain/Blood in Urine Time Seen by Provider: 07/26/21 21:55 Source: patient, RN notes reviewed, old records reviewed Mode of arrival: ambulatory Limitations: no limitations - History of Present Illness Initial comments: 45-year-old female presents to the emergency room with complaints of right flank pain started 4 hours ago. Patient states she has history of kidney stones and it feels like a kidney stone. She states that she has had one episode of nausea vomiting that was clear in color. She denies any fevers but states that her urine is dark in color. -: hour(s) (4) Location: right (flank) Radiation: non-radiation Severity scale (1-10): 10 Quality: constant Consistency: constant Associated Symptoms: nausea/vomiting - Related Data Home Medications Medication Instructions Recorded Confirmed Dicyclomine [Bentyl] 20 mg PO TID 07/30/20 05/23/21 amLODIPine [Norvasc] 10 mg PO DAILY 09/16/20 05/23/21 Nitroglycerin Sl Tabs [Nitrostat] 0.4 mg SUBLINGUAL Q5M PRN 10/03/20 05/23/21 Celecoxib [CeleBREX] 200 mg PO DAILY 02/15/21 05/23/21 Amitriptyline HCl [Elavil] 75 mg PO HS 05/23/21 05/23/21 Allergies Allergy/AdvReac Type Severity Reaction Status Date / Time codeine Allergy Rash/Hives Verified 07/26/21 20:23 diphenhydramine Allergy Rash/Hives Verified 07/26/21 20:23 [From Benadryl] methylprednisolone Allergy Itching Verified 07/26/21 20:23 [From Solu-Medrol] onion Allergy Rash/Hives Verified 07/26/21 20:23 Review of Systems ROS Statement: Those systems with pertinent positive or pertinent negative responses have been documented in the HPI. ROS Other: All systems not noted in ROS Statement are negative. 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 Carpel Tunnel bilateral wrists. Hx kidney stones. 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. Has had 2 Covid Vaccines. History of Any Multi-Drug Resistant Organisms: None Reported Past Surgical History: Appendectomy, Cholecystectomy, Heart Catheterization, Hysterectomy, Tubal Ligation Additional Past Surgical History / Comment(s): PAIN CLINIC PROCEDURES. Past Anesthesia/Blood Transfusion Reactions: No Reported Reaction Past Psychological History: Anxiety Smoking Status: Current every day smoker Past Alcohol Use History: None Reported Past Drug Use History: None Reported - Past Family History Mother Family Medical History: No Reported History Father Family Medical History: Unable to Obtain Additional Family Medical History / Comment(s): aunt and uncle mother side with CAD s/p CABG General Exam Limitations: no limitations General appearance: alert, in no apparent distress ENT exam: Present: mucous membranes moist Respiratory exam: Present: normal lung sounds bilaterally. Absent: respiratory distress, accessory muscle use Cardiovascular Exam: Present: regular rate Extremities exam: Present: normal capillary refill. Absent: pedal edema Back exam: Present: full ROM, CVA tenderness (R). Absent: CVA tenderness (L), vertebral tenderness, rash noted Neurological exam: Present: alert, oriented X3, normal gait Psychiatric exam: Present: normal affect, normal mood Skin exam: Present: warm, dry, normal color. Absent: cyanosis, diaphoretic Course Vital Signs 07/26/21 20:21 Temperature 98.2 F Pulse Rate 65 Respiratory 18 Rate Blood Pressure 135/78 O2 Sat by Pulse 96 Oximetry Medical Decision Making - Medical Decision Making X-ray shows no evidence of hydronephrosis or obstruction. Urinalysis is negative for ketones, blood, or infection. She is ambulatory with steady gait. She denies any recent injury or back strain. She was given Norflex as this may be musculoskeletal in nature. She does states that seen Dr Laura a couple of days ago to have the "nerves in her neck burned". This may be the cause of her elevated white blood cell count. Vital signs are stable. She has no focal neurological deficits. She was directed to return to the emergency room with any new or concerning symptoms including increased pain, nausea, vomiting or fevers. I recommended Tylenol and Motrin along with warm moist heat for pain control. Patient states she wants to go home and sit in a warm bath. Family member at bedside. Case discussed with Dr. Meadows - Lab Data Result diagrams: 07/26/21 21:18 07/26/21 21:18 Lab Results 07/26/21 07/26/21 07/26/21 Range/Units 20:41 21:18 21:18 WBC 17.0 H (3.8-10.6) k/uL RBC 4.53 (3.80-5.40) m/uL Hgb 14.0 (11.4-16.0) gm/dL Hct 43.5 (34.0-46.0) % MCV 96.0 (80.0-100.0) fL MCH 31.0 (25.0-35.0) pg MCHC 32.3 (31.0-37.0) g/dL RDW 12.9 (11.5-15.5) % Plt Count 277 (150-450) k/uL MPV 9.9 Neutrophils % 70 % Lymphocytes % 21 % Monocytes % 5 % Eosinophils % 2 % Basophils % 1 % Neutrophils # 12.0 H (1.3-7.7) k/uL Lymphocytes # 3.6 (1.0-4.8) k/uL Monocytes # 0.8 (0-1.0) k/uL Eosinophils # 0.3 (0-0.7) k/uL Basophils # 0.1 (0-0.2) k/uL Sodium 136 L (137-145) mmol/L Potassium 4.5 (3.5-5.1) mmol/L Chloride 103 (98-107) mmol/L Carbon Dioxide 25 (22-30) mmol/L Anion Gap 8 mmol/L BUN 11 (7-17) mg/dL Creatinine 0.60 (0.52-1.04) mg/dL Est GFR (CKD-EPI)AfAm >90 (>60 ml/min/1.73 sqM) Est GFR (CKD-EPI)NonAf >90 (>60 ml/min/1.73 sqM) Glucose 101 H (74-99) mg/dL Calcium 9.5 (8.4-10.2) mg/dL Total Bilirubin 0.4 (0.2-1.3) mg/dL AST 31 (14-36) U/L ALT 31 (4-34) U/L Alkaline Phosphatase 58 (38-126) U/L Total Protein 7.5 (6.3-8.2) g/dL Albumin 4.4 (3.5-5.0) g/dL Urine Color Yellow Urine Appearance Clear (Clear) Urine pH 6.0 (5.0-8.0) Ur Specific [place] 1.028 (1.001-1.035) Urine Protein Trace H (Negative) Urine Glucose (UA) Negative (Negative) Urine Ketones Negative (Negative) Urine Blood Negative (Negative) Urine Nitrite Negative (Negative) Urine Bilirubin Negative (Negative) Urine Urobilinogen 3.0 (<2.0) mg/dL Ur Leukocyte Esterase Negative (Negative) Disposition Clinical Impression: Flank pain Disposition: HOME SELF-CARE Condition: Good Instructions (If sedation given, give patient instructions): Acute Low Back Pain (ED) Additional Instructions: Tylenol and/or Motrin as needed for pain. You can use warm moist heat and or topical pain relievers like Biofreeze or [place] balm. Follow-up with your primary care doctor next week. Return to the emergency room with any new or concerning symptoms including fevers, persistent nausea vomiting or increased pain Is patient prescribed a controlled substance at d/c from ED?: No Referrals: Miguel Isbell [Primary Care Provider] - 1-2 days Time of Disposition: 23:35
--- NOTE | 2021-07-26 23:03 | US ---
EXAMINATION TYPE: US renals and bladder DATE OF EXAM: 07/26/2021 COMPARISON: 05/23/21 CLINICAL HISTORY: uti, back pain, hx of kidney stones. Right flank pain; hx of kidney stones EXAM MEASUREMENTS: Right Kidney: 11.2 x 4.4 x 4.2 cm Left Kidney: 11.6 x 5.4 x 4.7 cm Right Kidney: No hydronephrosis or masses seen Left Kidney: No hydronephrosis or masses seen Bladder: Patient voided prior to examination Bladder is empty. IMPRESSION: No evidence of renal mass or obstruction.
[2021-07-26] MEDS ORDERED: ORPHENADRINE 30 MG/ML 2 ML VIAL IM STA (23:28)
== END 2021-07-26 23:53 | disposition home or self-care (01) ==
LOC: SUPCPDRO 19:00 → EC 19:00
DX: R10.9 Unspecified abdominal pain (principal); Z86.73 Personal history of transient ischemic attack (TIA), and cerebral infarction without residual deficits; F17.200 Nicotine dependence, unspecified, uncomplicated; Z88.5 Allergy status to narcotic agent; Z88.8 Allergy status to other drugs, medicaments and biological substances; Z91.018 Allergy to other foods
CPT/HCPCS: 36415; 80053; 85025; 81003; 76770; 99284; 96374; 96375; 96361; J2360; J2405

== ENCOUNTER 2021-08-17 12:05 | Emergency (ER) | payer OTHER ==
[2021-08-17 13:01] VITALS: BP 133/86; PULSE 98; RESP 18; TEMP 98.2
--- NOTE | 2021-08-17 15:03 | ED ---
General Adult HPI - General Chief complaint: Skin/Abscess/Foreign Body Stated complaint: poss abscess Time Seen by Provider: 08/17/21 14:55 Source: patient, RN notes reviewed, old records reviewed Mode of arrival: ambulatory Limitations: no limitations - History of Present Illness Initial comments: 45-year-old female presenting with pain and swelling right trapezius. His been there for one month. She's been on a course of antibiotics which she believes was doxycycline. She was seen by physician today and thought that there may be an underlying abscess and was sent to the emergency department for incision and drainage. She has not noted any drainage. She has not had fever. No systemic symptoms. This has been present for one month. - Related Data Home Medications Medication Instructions Recorded Confirmed Dicyclomine [Bentyl] 20 mg PO QID PRN 07/30/20 08/16/21 amLODIPine [Norvasc] 10 mg PO DAILY 09/16/20 08/16/21 Nitroglycerin Sl Tabs [Nitrostat] 0.4 mg SUBLINGUAL Q5M PRN 10/03/20 08/16/21 Celecoxib [CeleBREX] 200 mg PO DAILY 02/15/21 08/16/21 Amitriptyline HCl [Elavil] 75 mg PO HS 05/23/21 08/16/21 Butalb/APAP/Caff 50-325-40Mg 1 tab PO TID PRN 08/16/21 08/16/21 [Fioricet 50-325-40] Cyclobenzaprine [Flexeril] 10 mg PO BID PRN 08/16/21 08/16/21 Doxycycline Monohydrate 100 mg PO BID 08/16/21 08/16/21 Previous Rx's Medication Instructions Recorded Cephalexin [Keflex] 500 mg PO QID 10 Days #40 cap 08/17/21 Sulfamethox-Tmp 800-160Mg [Bactrim 1 tab PO Q12HR #28 tab 08/17/21 DS 800-160 mg] Allergies Allergy/AdvReac Type Severity Reaction Status Date / Time codeine Allergy Rash/Hives Verified 08/17/21 13:02 diphenhydramine Allergy Rash/Hives Verified 08/17/21 13:02 [From Benadryl] methylprednisolone Allergy Itching Verified 08/17/21 13:02 [From Solu-Medrol] onion Allergy Rash/Hives Verified 08/17/21 13:02 Review of Systems ROS Statement: Those systems with pertinent positive or pertinent negative responses have been documented in the HPI. ROS Other: All systems not noted in ROS Statement are negative. 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 Carpel Tunnel bilateral wrists. Hx kidney stones. 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. Has had 2 Covid Vaccines. History of Any Multi-Drug Resistant Organisms: None Reported Past Surgical History: Appendectomy, Cholecystectomy, Heart Catheterization, Hysterectomy, Tubal Ligation Additional Past Surgical History / Comment(s): PAIN CLINIC PROCEDURES. Past Anesthesia/Blood Transfusion Reactions: No Reported Reaction Past Psychological History: Anxiety Smoking Status: Current every day smoker Past Alcohol Use History: None Reported Past Drug Use History: None Reported - Past Family History Mother Family Medical History: No Reported History Father Family Medical History: Unable to Obtain Additional Family Medical History / Comment(s): aunt and uncle mother side with CAD s/p CABG General Exam Limitations: no limitations General appearance: alert, in no apparent distress Head exam: Present: atraumatic, normocephalic Eye exam: Present: normal appearance, PERRL, EOMI ENT exam: Present: normal exam Neck exam: Present: normal inspection. Absent: tenderness, meningismus Respiratory exam: Present: normal lung sounds bilaterally. Absent: respiratory distress Cardiovascular Exam: Present: regular rate, normal rhythm GI/Abdominal exam: Present: soft. Absent: distended, tenderness, guarding Neurological exam: Present: alert, oriented X3, CN II-XII intact, normal gait. Absent: motor sensory deficit Psychiatric exam: Present: normal affect, normal mood Skin exam: Present: other (Erythema with central ulceration right trapezius. There is approximately 1 cm of surrounding cellulitis. There is no induration, no fluctuance, very minimal tenderness, no crepitus.) Course Vital Signs 08/17/21 12:59 Temperature 98.2 F Pulse Rate 98 Respiratory 18 Rate Blood Pressure 133/86 O2 Sat by Pulse 96 Oximetry Medical Decision Making - Medical Decision Making 45-year-old female sent in for evaluation of possible abscess. I do not see a drainable abscess. Patient is afebrile and otherwise well-appearing. There is some minimal surrounding cellulitis adjacent to this ulceration which has been present for the past one month. I did indicate that the patient to evaluate for deep abscess that would have to obtain an ultrasound. She declines at this time. I think this is reasonable because I have a very low suspicion for a one- month infectious process deep to this superficial lesion. She will be continued on antibiotics covering both staph and strep. Should follow-up with her primary care physician. Disposition Clinical Impression: Cellulitis Disposition: HOME SELF-CARE Condition: Good Instructions (If sedation given, give patient instructions): Cellulitis (ED) Prescriptions: Sulfamethox-Tmp 800-160Mg [Bactrim DS 800-160 mg] 1 tab PO Q12HR #28 tab Cephalexin [Keflex] 500 mg PO QID 10 Days #40 cap Is patient prescribed a controlled substance at d/c from ED?: No Referrals: Miguel Isbell [Primary Care Provider] - 1-2 days Time of Disposition: 15:02
== END 2021-08-17 15:20 | disposition home or self-care (01) ==
LOC: EC 12:05
DX: K12.2 Cellulitis and abscess of mouth (principal); Z86.73 Personal history of transient ischemic attack (TIA), and cerebral infarction without residual deficits; F17.200 Nicotine dependence, unspecified, uncomplicated; Z88.5 Allergy status to narcotic agent; Z88.8 Allergy status to other drugs, medicaments and biological substances; Z91.018 Allergy to other foods
CPT/HCPCS: 99283

== ENCOUNTER → 2021-08-24 | Outpatient (CLI) | payer OTHER ==
--- NOTE | 2021-08-24 17:32 | CT ---
EXAMINATION TYPE: CT soft tissue neck wo con CT DLP: 463.50 mGycm, Automated exposure control for dose reduction was used. DATE OF EXAM: 08/24/2021 5:20 PM COMPARISON: None. CLINICAL INDICATION:Female, 45 years old with history of M54.6 Pain in thoracic spine- Pain in thorac ic spine; neck and back pain. TECHNIQUE: Standard enhanced CT of the neck following intravenous administration of 100 cc of Isovue 300. Axial sections with coronal and sagittal reformats were obtained. FINDINGS: Brain: Visualized portions are grossly unremarkable. Orbits: Unremarkable Sinuses: Grossly unremarkable. Spaces of the neck: Clear and symmetric. Musculoskeletal: No acute osseous pathology. Lymph nodes: Multiple nonenlarged lymph nodes are seen along both anterior chains of the neck. Vascular structures: Unremarkable. Thoracic Inlet/airway: Airway is patent. The lung apices are clear. Soft tissues/Thyroid: Thyroid and remainder of the soft tissues are unremarkable. IMPRESSION No acute finding to explain patient's neck and back pain.
--- NOTE | 2021-08-24 17:39 | CT ---
EXAMINATION TYPE: CT thoracic spine wo con CT DLP: 1586.70 mGycm, Automated exposure control for dose reduction was used. DATE OF EXAM: 08/24/2021 5:20 PM COMPARISON: None. CLINICAL INDICATION:Female, 45 years old with history of M54.6 Pain in thoracic spine, Pain in thorac ic spine; neck and back pain. TECHNIQUE: Axial images of the thoracic spine were obtained without contrast. Coronal and sagittal re formats were performed. FINDINGS: The thoracic vertebral bodies have preserved heights. There is straightening of the spinal alignment including the cervical and thoracic portions. Intervertebral discs and osseous structures have normal appearance. Mild osteophyte formation most pronounced in the lower spine. No evidence of extradural defects nor significant spinal canal narrowing at any thoracic vertebral body level. Meghan cystectomy clips are present. IMPRESSION: 1. No spinal canal or neural foraminal stenosis is identified. 2. No evidence of acute fracture. 3. Mild multilevel disc degeneration changes.
== END | disposition home or self-care (01) ==
LOC: RADCTMAIN 16:13
PROVIDERS: ATTEND Psychiatry & Neurology Neurology
DX: M54.6 Pain in thoracic spine (principal); M54.2 Cervicalgia; T88.8XXA Other specified complications of surgical and medical care, not elsewhere classified, initial encounter
CPT/HCPCS: 70490; 72128

== ENCOUNTER 2021-09-25 13:51 | Emergency (ER) | payer OTHER ==
[2021-09-25 14:38] VITALS: TEMP 98.2
--- NOTE | 2021-09-25 15:20 | ED ---
General Adult HPI - General Chief complaint: Recheck/Abnormal Lab/Rx Stated complaint: Covid+,Wants testing to confirm Time Seen by Provider: 09/25/21 14:45 Source: patient, RN notes reviewed, old records reviewed Mode of arrival: ambulatory Limitations: no limitations - History of Present Illness Initial comments: 45-year-old female presents for evaluation of abdominal pain and diarrhea as well as coronavirus exposure and positive home test. She's had no cough or respiratory issues, no dyspnea, no chest pain. No measured fever. No significant vomiting just nausea and diarrhea. - Related Data Home Medications Medication Instructions Recorded Confirmed Dicyclomine [Bentyl] 20 mg PO QID PRN 07/30/20 08/16/21 amLODIPine [Norvasc] 10 mg PO DAILY 09/16/20 08/16/21 Nitroglycerin Sl Tabs [Nitrostat] 0.4 mg SUBLINGUAL Q5M PRN 10/03/20 08/16/21 Celecoxib [CeleBREX] 200 mg PO DAILY 02/15/21 08/16/21 Amitriptyline HCl [Elavil] 75 mg PO HS 05/23/21 08/16/21 Butalb/APAP/Caff 50-325-40Mg 1 tab PO TID PRN 08/16/21 08/16/21 [Fioricet 50-325-40] Cyclobenzaprine [Flexeril] 10 mg PO BID PRN 08/16/21 08/16/21 Doxycycline Monohydrate 100 mg PO BID 08/16/21 08/16/21 Previous Rx's Medication Instructions Recorded Cephalexin [Keflex] 500 mg PO QID 10 Days #40 cap 08/17/21 Sulfamethox-Tmp 800-160Mg [Bactrim 1 tab PO Q12HR #28 tab 08/17/21 DS 800-160 mg] Allergies Allergy/AdvReac Type Severity Reaction Status Date / Time codeine Allergy Rash/Hives Verified 09/25/21 14:38 diphenhydramine Allergy Rash/Hives Verified 09/25/21 14:38 [From Benadryl] methylprednisolone Allergy Itching Verified 09/25/21 14:38 [From Solu-Medrol] onion Allergy Rash/Hives Verified 09/25/21 14:38 Review of Systems ROS Statement: Those systems with pertinent positive or pertinent negative responses have been documented in the HPI. ROS Other: All systems not noted in ROS Statement are negative. 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 Carpel Tunnel bilateral wrists. Hx kidney stones. 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. Has had 2 Covid Vaccines. History of Any Multi-Drug Resistant Organisms: None Reported Past Surgical History: Appendectomy, Cholecystectomy, Heart Catheterization, Hysterectomy, Tubal Ligation Additional Past Surgical History / Comment(s): PAIN CLINIC PROCEDURES. Past Anesthesia/Blood Transfusion Reactions: No Reported Reaction Past Psychological History: Anxiety Smoking Status: Current every day smoker Past Alcohol Use History: None Reported Past Drug Use History: None Reported - Past Family History Mother Family Medical History: No Reported History Father Family Medical History: Unable to Obtain Additional Family Medical History / Comment(s): aunt and uncle mother side with CAD s/p CABG General Exam Limitations: no limitations General appearance: alert, in no apparent distress Head exam: Present: atraumatic, normocephalic Eye exam: Present: normal appearance, PERRL ENT exam: Present: normal exam Neck exam: Present: normal inspection. Absent: tenderness, meningismus Respiratory exam: Present: normal lung sounds bilaterally. Absent: respiratory distress, wheezes Cardiovascular Exam: Present: regular rate, normal rhythm GI/Abdominal exam: Present: soft. Absent: distended, tenderness, guarding Extremities exam: Present: normal inspection, normal capillary refill. Absent: pedal edema Neurological exam: Present: alert, oriented X3, CN II-XII intact. Absent: motor sensory deficit Psychiatric exam: Present: normal affect, normal mood Skin exam: Present: warm, dry, intact. Absent: cyanosis, diaphoretic Course Vital Signs 09/25/21 14:37 Temperature 98.2 F Pulse Rate 88 Respiratory 16 Rate Blood Pressure 118/77 O2 Sat by Pulse 98 Oximetry Medical Decision Making - Medical Decision Making 45-year-old female who test positive for coronavirus. Patient does meet for monoclonal antibodies this is transfused in the emergency department. She had been previously vaccinated with 2 vaccines total. She is well-appearing with stable vitals, no hypoxia. She is instructed to take vitamin C, vitamin D, zinc. Return with worsening or changing symptoms. - Lab Data Lab Results 09/25/21 Range/Units 14:42 Coronavirus (PCR) Detected A (Not Detectd) Disposition Clinical Impression: COVID-19 Disposition: HOME SELF-CARE Condition: Fair Instructions (If sedation given, give patient instructions): COVID-19: Slow the Coronavirus Spread (ED), COVID-19 (Coronavirus Disease 2019) (ED) Is patient prescribed a controlled substance at d/c from ED?: No Referrals: Miguel Isbell [Primary Care Provider] - 1-2 days Time of Disposition: 16:30
[2021-09-25] MEDS ORDERED: BEBTELOVIMAB (EUA) 175 MG/2 ML VIAL IV ONE (16:30)
[2021-09-25 17:55] VITALS: BP 112/83; PULSE 84; RESP 16
== END 2021-09-25 17:57 | disposition home or self-care (01) ==
LOC: EC 13:51
DX: U07.1 COVID-19 (principal); I25.10 Atherosclerotic heart disease of native coronary artery without angina pectoris; M19.90 Unspecified osteoarthritis, unspecified site; G40.909 Epilepsy, unspecified, not intractable, without status epilepticus; F41.9 Anxiety disorder, unspecified; F17.200 Nicotine dependence, unspecified, uncomplicated; Z86.73 Personal history of transient ischemic attack (TIA), and cerebral infarction without residual deficits; Z79.899 Other long term (current) drug therapy
CPT/HCPCS: 87635; 99284; Q0222

== ENCOUNTER → 2021-10-12 | Outpatient (CLI) | payer OTHER ==
--- NOTE | 2021-10-12 13:23 | XR ---
EXAMINATION TYPE: XR sacroiliac joint comp BILAT DATE OF EXAM: 10/12/2021 COMPARISON: NONE HISTORY: Pain TECHNIQUE: 3 views submitted of the SI joint FINDINGS: Mild sclerosis involving bilateral SI joints. Joint spaces preserved with no erosive change s. Visualized sacrum demonstrates spina bifida occulta at the sacrococcygeal junction. Surgical clips in the right abdomen are seen. Visualized lumbar lower spine is intact. Sclerotic density overlying the left inferior pubic ramus most likely the basis of bone island. IMPRESSION: Mild bilateral sacroiliitis.
--- NOTE | 2021-10-12 13:24 | XR ---
EXAMINATION TYPE: XR Hip Bilateral Complete DATE OF EXAM: 10/12/2021 COMPARISON: NONE HISTORY: Pain TECHNIQUE: 2 views of the bilateral hip submitted FINDINGS: There is no evidence of erosive change or acute fracture. Sclerotic density overlying left inferior p ubic ramus most typical of a bone island. Mild concentric narrowing of the hip joint. Mild hypertroph ic change of the acetabulum. IMPRESSION: 1. Mild concentric joint space narrowing compatible with arthropathy. Correlate for mild femoral acet abular impingement..
== END | disposition home or self-care (01) ==
LOC: RADXRMAIN 12:45
PROVIDERS: ATTEND Psychiatry & Neurology Pain Medicine
DX: M46.1 Sacroiliitis, not elsewhere classified (principal)
CPT/HCPCS: 72202; 73521

== ENCOUNTER → 2021-11-29 | Outpatient (CLI) | payer OTHER | END | disposition home or self-care (01) | LOC: LABPAT 11:32 | PROVIDERS: ATTEND Surgery | DX: Z01.812 Encounter for preprocedural laboratory examination (principal); Z01.818 Encounter for other preprocedural examination; K21.00 Gastro-esophageal reflux disease with esophagitis, without bleeding | CPT/HCPCS: 85025 ==

== ENCOUNTER 2021-11-30 08:52 | Observation (INO) | payer OTHER ==
[~2021-11-30 08:52] MED LIST changes: +ACETAMINOPHEN TAB 500 MG TAB PO PRN; +DEXAMETHASONE SOD PHOSPHATE 4 MG/ML 1 ML VIAL IV ONE; +HEPARIN SODIUM,PORCINE/PF 5,000 UNIT/0.5 ML SYRINGE SQ PRN; +HYDROmorphone 0.5 MG/0.5 ML SYRINGE IVP PRN; -LIDOCAINE 1% (10MG/ML) FOR IV START INTRADERMA PRN; +ONDANSETRON 4 MG/2 ML VIAL IVP ONE
[2021-11-30 09:43] LABS: Basophils # (A) 0.1 k/uL (0-0.2); Basophils % (A) 1 %; Eosinophils # (A) 0.5 k/uL (0-0.7); Eosinophils % (A) 6 %; HCT 43.3 % (34.0-46.0); HGB 13.9 gm/dL (11.4-16.0); Lymphocytes # (A) 2.1 k/uL (1.0-4.8); Lymphocytes % (A) 26 %; MCH 29.7 pg (25.0-35.0); MCHC 32.1 g/dL (31.0-37.0); MCV 92.8 fL (80.0-100.0); Mean Platelet Volume 9.6; Monocytes # (A) 0.3 k/uL (0-1.0); Monocytes % (A) 4 %; Neutrophils # (A) 5.1 k/uL (1.3-7.7); Neutrophils % (A) 62 %; Platelet Count 251 k/uL (150-450); RBC 4.67 m/uL (3.80-5.40); RDW 14.7 % (11.5-15.5); WBC 8.3 k/uL (3.8-10.6)
[2021-11-30 09:57] LABS: ALT 17 U/L (4-34); African American GFR (CKD) >90 (>60 ml/min/1.73 sqM); Albumin 4.5 g/dL (3.5-5.0); Anion Gap 11 mmol/L; Blood Urea Nitrogen 5 mg/dL (7-17); Calcium 9.7 mg/dL (8.4-10.2); Carbon Dioxide 24 mmol/L (22-30); Chloride 105 mmol/L (98-107); Glucose 92 mg/dL (74-99); Non-African American GFR(CKD) >90 (>60 ml/min/1.73 sqM); Sodium 140 mmol/L (137-145); Total Bilirubin 0.3 mg/dL (0.2-1.3); Total Protein 7.5 g/dL (6.3-8.2)
[2021-11-30 10:22] LABS: AST 25 U/L (14-36); Alkaline Phosphatase 60 U/L (38-126); Potassium 4.6 mmol/L (3.5-5.1)
--- NOTE | 2021-11-30 10:23 | P.GSHP ---
History of Present Illness H&P Date: 11/30/21 Chief Complaint: GERD This a 46-year-old female presents today for laparoscopic Juan Francisco fundoplication The patient has had long-standing problems with reflux esophagitis. The patient underwent recent EGD is found have evidence of esophagitis. Patient has been well informed on the procedure of laparoscopic Juan Francisco fundoplication. The patient is aware the risk of the conversion to the open procedure, risk of injury to the stomach, liver and spleen. The patient is also a risk of recurrent GERD and dysphagia symptoms. The patient understands there is a postoperative diet of full liquids for 2 weeks after surgery. Past Medical History Past Medical History: Coronary Artery Disease (CAD), Chest Pain / Angina, CVA/TIA, GERD/Reflux, Hypertension, Musculoskeletal Disorder, Osteoarthritis (OA), Seizure Disorder Additional Past Medical History / Comment(s): Degenerative Disc Disease, Migraines and blacks out with sever migraines., hx TIA x2 ., CTS jenifer., Hx kidney stones. 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., hiatal hernia, constipation History of Any Multi-Drug Resistant Organisms: None Reported Past Surgical History: Appendectomy, Cholecystectomy, Heart Catheterization, Hysterectomy, Tubal Ligation Additional Past Surgical History / Comment(s): PAIN CLINIC PROCEDURES., EGD Past Anesthesia/Blood Transfusion Reactions: No Reported Reaction Additional Past Alcohol Use History / Comment(s): STARTED SMOKING AGE 18 (1993), SMOKES LESS THAN 1/2 PPD - Past Family History Mother Family Medical History: No Reported History Father Family Medical History: No Reported History Additional Family Medical History / Comment(s): Aunt and uncle mother's side with CAD s/p CABG. Medications and Allergies Home Medications Medication Instructions Recorded Confirmed Type Dicyclomine [Bentyl] 20 mg PO QID PRN 07/30/20 11/25/21 History amLODIPine [Norvasc] 10 mg PO QAM 09/16/20 11/25/21 History Nitroglycerin Sl Tabs [Nitrostat] 0.4 mg SUBLINGUAL Q5M PRN 10/03/20 11/25/21 History Celecoxib [CeleBREX] 200 mg PO DAILY 02/15/21 11/25/21 History Amitriptyline HCl [Elavil] 75 mg PO HS 05/23/21 11/25/21 History Butalb/APAP/Caff 50-325-40Mg 1 tab PO TID PRN 08/16/21 11/25/21 History [Fioricet 50-325-40] Cyclobenzaprine [Flexeril] 10 mg PO BID PRN 08/16/21 11/25/21 History Gabapentin [Neurontin] 400 mg PO BID 11/10/21 11/25/21 History Allergies Allergy/AdvReac Type Severity Reaction Status Date / Time codeine Allergy Rash/Hives Verified 11/30/21 09:12 diphenhydramine Allergy Rash/Hives Verified 11/30/21 09:12 [From Benadryl] methylprednisolone Allergy Itching Verified 11/30/21 09:12 [From Solu-Medrol] onion Allergy Rash/Hives Verified 11/30/21 09:12 Surgical - Exam Vital Signs Temp Pulse Resp BP Pulse Ox 97.4 F L 79 17 128/79 97 11/30/21 09:15 11/30/21 09:15 11/30/21 09:15 11/30/21 09:15 11/30/21 09:15 - General well developed, well nourished, no distress - Eyes PERRL - ENT normal pinna - Neck no masses - Respiratory normal expansion - Cardiovascular Rhythm: regular - Abdomen Abdomen: soft, non tender Results - Labs 11/30/21 09:25 Assessment and Plan Assessment: GERD. We'll perform laparoscopic Juan Francisco fundal plication.
[2021-11-30] MEDS ORDERED: GLYCOPYRROLATE 0.2 MG/ML 2 ML VIAL ONE (10:42)
[2021-11-30] MEDS ORDERED: fentaNYL (PF) 50 MCG/ML 2 ML AMP ONE (10:42)
[2021-11-30] MEDS ORDERED: ROCURONIUM 10 MG/ML (5 ML VIAL) IV ONE (10:42)
[2021-11-30] MEDS ORDERED: NEOSTIGMINE 1 MG/ML 10 ML VIAL ONE (10:42)
[2021-11-30] MEDS ORDERED: SUCCINYLCHOLINE CHLORIDE 200 MG/10 ML VIAL IV ONE (10:42)
[2021-11-30] MEDS ORDERED: PROPOFOL 10 MG/ML 20 ML VIAL IV ONE (10:42)
[2021-11-30] MEDS ORDERED: KETAMINE 10 MG/ML 20 ML VIAL ONE (10:42)
[2021-11-30] MEDS ORDERED: MIDAZOLAM 2 MG/2 ML VIAL ONE (10:42)
[2021-11-30] MEDS ORDERED: BUPIVACAIN-EPI 0.25%-1:200,000 30 ML VIAL SQ ONE (11:15)
[2021-11-30] MEDS ORDERED: ONDANSETRON 4 MG/2 ML VIAL IVP PRN (11:54)
--- NOTE | 2021-11-30 12:01 | P.OP ---
Date of Procedure: 11/30/21 Preoperative Diagnosis: GERD Postoperative Diagnosis: GERD Procedure(s) Performed: Laparoscopic Juan Francisco fundal plication Anesthesia: VENKAT Surgeon: Koko Anderson Estimated Blood Loss (ml): 5 Pathology: none sent Condition: stable Disposition: PACU Description of Procedure: HThe patient was placed on the operating table in the supine position. The patient received general anesthesia. And was placed in dorsal lithotomy position. The patient was prepped and draped in the usual sterile fashion. The skin incision sites were anesthetized with 1% local Xylocaine. The skin was incised in the left periumbilical area and then using a blade less 5 mm trocar under direct visualization panel cavity was entered. After adequate insufflation the laparoscope was then placed into the peritoneal cavity. Next a 5 mm trochars placed in the right epigastric position. Another 5 millimeter trocar the right lateral position. Another 5 millimeter trocar in the left lateral position a 5 mm trocar is placed in the left epigastric position. And then the initial 5 mm trocar was exchanged for a 10 mm trocar. The left lateral lobe liver was retracted. The hernia was seen. The crural defect was then dissected using the Harmonic scissors device. A 360 crural dissection was performed the esophagus stomach was reduced back into the peritoneal Cavity. The crural defect was then closed using 2-0 Ethibond suture. Next the fundus of the stomach was mobilized using the [place] scissors device. and then a 58- [place] bougie dilator was placed oropharynx passed into the esophagus and stomach the fundal plication wrap was then performed by grasping the fundus post eriorly and bringing it around the esophagus and stomach fundoplication was then performed using 2-0 Ethibond suture. Care was taken that the fundal location rested over top of the intra-abdominal esophagus. There was no injury seen to the stomach or esophagus. The dilator was then withdrawn. The abdomen was irrigated there is no bleeding seen. The trochars were then withdrawn and then skin incision sites were closed using 3-0 Monocryl suture Steri-Strips are applied. Patient thought procedure well and sent to recovery room in stable condition.
[2021-11-30 12:08] VITALS: RESP 16
[2021-11-30] MEDS ORDERED: LABETALOL 5 MG/ML VIAL MDV IV ONE (12:33)
[2021-11-30] MEDS: HYDROmorphone 1 MG/ML 1 ML SYRINGE IVP PRN ×3 (14:37→23:00)
[2021-11-30] MEDS: D5-0.45% NACL WITH KCL 20MEQ/L 1,000 ML IV SCH ×2 (14:38→23:54)
[2021-11-30] MEDS: amLODIPine 10 MG TAB PO SCH (16:08)
[2021-11-30] MEDS ORDERED: AMITRIPTYLINE HCL 25 MG TAB PO SCH (21:00)
--- NOTE | 2021-11-30 22:16 | P.CONS ---
History of Present Illness - Reason for Consult Consult date: 11/30/21 Medical management - Chief Complaint Status post Juan Francisco fundoplication surgery. Laparoscopic. - History of Present Illness Status post Juan Francisco fundoplication surgery. Laparoscopic. Patient is a 46-year-old female with a known history of hypertension, GERD, osteoarthritis, seizure disorder and chronic degenerative disc disease and migraine headaches and prior history of cardiac catheterization and currently everyday smoker was admitted to the hospital for elective laparoscopic Juan Francisco fundoplication surgery. Patient has been having GERD symptoms for several years and recently underwent EGD showed esophagitis. Patient is status postprocedure. Currently complains of pain and is being continued on Dilaudid 1 mg IV push every 4 hourly. No complaints of chest pain or shortness breath. Complains of nausea. No episodes of vomiting. No headache or dizziness lightheadedness. No fever no chills. No cough or sputum production. Review of Systems Constitutional: Patient denies any fever or chills . no Generalized weakness. Abdomen: Patient does complain of nausea and abdominal pain. No diarrhea. Cardiovascular: Patient denies any chest pain or short of breath no palpitations. Respiratory: patient denied any cough is from production. No shortness of breath Neurologic: Patient denied any numbness or tingling headache. Musculoskeletal: Patient denies any complaints of joint swelling or deformity. Skin: Negative Psychiatric: Negative Endocrine: No heat or cold intolerance. No recent weight gain. Genitourinary: No dysuria or hematuria. All other 14 point ROS negative except the above Past Medical History Past Medical History: Coronary Artery Disease (CAD), Chest Pain / Angina, CVA/TIA, GERD/Reflux, Hypertension, Musculoskeletal Disorder, Osteoarthritis (OA), Seizure Disorder Additional Past Medical History / Comment(s): Degenerative Disc Disease, Migraines and blacks out with sever migraines., hx TIA x2 ., CTS jenifer., Hx kidney stones. 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., hiatal hernia, constipation History of Any Multi-Drug Resistant Organisms: None Reported Past Surgical History: Appendectomy, Cholecystectomy, Heart Catheterization, Hysterectomy, Tubal Ligation Additional Past Surgical History / Comment(s): PAIN CLINIC PROCEDURES., EGD Past Anesthesia/Blood Transfusion Reactions: No Reported Reaction Additional Past Alcohol Use History / Comment(s): STARTED SMOKING AGE 18 (1993), SMOKES LESS THAN 1/2 PPD - Past Family History Mother Family Medical History: No Reported History Father Family Medical History: No Reported History Additional Family Medical History / Comment(s): Aunt and uncle mother's side with CAD s/p CABG. Medications and Allergies Home Medications Medication Instructions Recorded Confirmed Type Dicyclomine [Bentyl] 20 mg PO QID PRN 07/30/20 11/25/21 History amLODIPine [Norvasc] 10 mg PO QAM 09/16/20 11/25/21 History Nitroglycerin Sl Tabs [Nitrostat] 0.4 mg SUBLINGUAL Q5M PRN 10/03/20 11/25/21 History Celecoxib [CeleBREX] 200 mg PO DAILY 02/15/21 11/25/21 History Amitriptyline HCl [Elavil] 75 mg PO HS 05/23/21 11/25/21 History Butalb/APAP/Caff 50-325-40Mg 1 tab PO TID PRN 08/16/21 11/25/21 History [Fioricet 50-325-40] Cyclobenzaprine [Flexeril] 10 mg PO BID PRN 08/16/21 11/25/21 History Gabapentin [Neurontin] 400 mg PO BID 11/10/21 11/25/21 History Allergies Allergy/AdvReac Type Severity Reaction Status Date / Time codeine Allergy Rash/Hives Verified 11/30/21 09:12 diphenhydramine Allergy Rash/Hives Verified 11/30/21 09:12 [From Benadryl] methylprednisolone Allergy Itching Verified 11/30/21 09:12 [From Solu-Medrol] onion Allergy Rash/Hives Verified 11/30/21 09:12 Physical Exam Vitals: Vital Signs Temp Pulse Pulse Resp BP BP Pulse Ox 11/30/21 13:00 67 16 160/87 97 11/30/21 12:45 61 16 155/79 96 11/30/21 12:30 69 16 162/83 96 11/30/21 12:13 74 16 156/76 99 11/30/21 11:58 97 F L 95 16 173/83 98 11/30/21 09:15 97.4 F L 79 17 128/79 97 Intake and Output 11/29/21 11/30/21 11/30/21 22:59 06:59 14:59 Intake Total 1050 Output Total 5 Balance 1045 Intake: IV 1050 Output: Estimated Blood Loss 5 Other: Weight 80.1 kg PHYSICAL EXAMINATION: Patient is lying in the bed comfortably, no acute distress, awake alert and oriented.. HEENT: Normocephalic. Neck is supple. Pupils reactive. Nostrils clear. Oral cavity is moist. Neck reveals no JVD, carotid bruits, or thyromegaly. CHEST EXAMINATION: Trachea is central. Symmetrical expansion. Lung fairchild clear to auscultation and percussion. CARDIAC: Normal S1, S2 with no gallops. No murmurs ABDOMEN: Soft. Bowel sounds present. Nontender. No organomegaly. No abdominal bruits. Extremities: reveal no edema. No clubbing or cyanosis Neurologically awake, alert, oriented x3 with well-coordinated movements. No focal deficits noted Skin: No rash or skin lesions. Psychiatric: Coperative. Nonsuicidal, Musculoskeletal: No joint swelling or deformity. Normal range of motion. Results CBC & Chem 7: 11/30/21 09:25 11/30/21 09:25 Labs: Abnormal Lab Results - Last 24 Hours (Table) 11/30/21 Range/Units 09:25 BUN 5 L (7-17) mg/dL Assessment and Plan Assessment: S/p Juan Francisco fundoplication surgery laparoscopic postoperative day 0 Longstanding history of GERD. Hypertension uncontrolled likely due to pain History of CVA/TIA Chronic biliary disease Ongoing nicotine addiction DVT prophylaxis and GI prophylaxis Plan: Patient will be continued on current pain management, bowel regimen and encourage incentive spirometry. Symptomatic management for nausea. Patient will be started back on amlodipine and monitor blood pressure closely. Continue with home medications. Further recommendations based on the clinical course. Follow-up CBC and BMP. Smoking cessation has been counseled extensively. Thank you for your consult. Time with Patient: Greater than 30
[2021-12-01 06:01] VITALS: BP 134/83; PULSE 87; TEMP 99.3
[2021-12-01] MEDS ORDERED: ACETAMINOPHEN TAB 500 MG TAB PO PRN (08:23)
[2021-12-01] MEDS ORDERED: amLODIPine 10 MG TAB PO SCH (09:00)
[2021-12-01] MEDS ORDERED: ENOXAPARIN 40 MG/0.4 ML SYRINGE SQ SCH (09:00)
[2021-12-01] MEDS: D5-0.45% NACL WITH KCL 20MEQ/L 1,000 ML IV SCH (09:32)
[2021-12-01] MEDS: HYDROmorphone 1 MG/ML 1 ML SYRINGE IVP PRN (09:33)
[2021-12-01] MEDS: amLODIPine 10 MG TAB PO SCH (09:36)
[2021-12-01] MEDS ORDERED: HYDROcodone/APAP 5-325MG 1 EACH TAB PO PRN (10:05)
[2021-12-01 11:23] VITALS: BMI 34.4
--- NOTE | 2021-12-01 12:01 | P.DS ---
Providers Date of admission: 12/01/21 00:28 Expected date of discharge: 12/01/21 Attending physician: Koko Anderson Consults: 11/30/21 11:54 Consult Physician Routine Consulting Provider: Jose Ramon Bowman Consult Reason/Comments: med manage Do you want consulting provider notified?: Yes Primary care physician: Stated None Hospital Course: Discharge diagnosis 1. GERD status post laparoscopic Juan Francisco fundoplication Hospital course This is a 46-year-old female with a known history of GERD and EGD with evidence of esophagitis. She is status post laparoscopic Juan Francisco fundoplication. She tolerated surgery well. Her pain is controlled. She is up and ambulating. She is tolerating diet. She is afebrile. She is stable for discharge. Please refer to chart for any further details. Physician Clinical Dietician note has been reviewed by physician. Signing provider agrees with the documented findings, assessment, and plan of care. Patient Condition at Discharge: Stable Plan - Discharge Summary Discharge Rx Participant: Yes New Discharge Prescriptions: New HYDROcodone/APAP 5-325MG [Prospect 5-325] 1 tab PO Q6HR PRN 3 Days #12 tab PRN Reason: Pain Continue Nitroglycerin Sl Tabs [Nitrostat] 0.4 mg SUBLINGUAL Q5M PRN PRN Reason: Chest Pain Amitriptyline HCl [Elavil] 75 mg PO HS Butalb/APAP/Caff 50-325-40Mg [Fioricet 50-325-40] 1 tab PO TID PRN PRN Reason: Migraine Headache Dicyclomine [Bentyl] 20 mg PO QID PRN PRN Reason: Gi Upset amLODIPine [Norvasc] 10 mg PO QAM Cyclobenzaprine [Flexeril] 10 mg PO BID PRN PRN Reason: Muscle Pain Gabapentin [Neurontin] 400 mg PO BID Discontinued Celecoxib [CeleBREX] 200 mg PO DAILY Discharge Medication List Dicyclomine [Bentyl] 20 mg PO QID PRN 07/30/20 [History] amLODIPine [Norvasc] 10 mg PO QAM 09/16/20 [History] Nitroglycerin Sl Tabs [Nitrostat] 0.4 mg SUBLINGUAL Q5M PRN 10/03/20 [History] Amitriptyline HCl [Elavil] 75 mg PO HS 05/23/21 [History] Butalb/APAP/Caff 50-325-40Mg [Fioricet 50-325-40] 1 tab PO TID PRN 08/16/21 [History] Cyclobenzaprine [Flexeril] 10 mg PO BID PRN 08/16/21 [History] Gabapentin [Neurontin] 400 mg PO BID 11/10/21 [History] HYDROcodone/APAP 5-325MG [Prospect 5-325] 1 tab PO Q6HR PRN 3 Days #12 tab 12/01/21 [Rx] Follow up Appointment(s)/Referral(s): Koko Anderson MD [STAFF PHYSICIAN] - 1 Week Activity/Diet/Wound Care/Special Instructions: No driving while taking Prospect No lifting over 10 pounds Shower daily. No soaking or tub baths for 2 weeks Very light activity until you are reevaluated at your follow up appointment with your surgeon Discharge Disposition: HOME SELF-CARE
--- NOTE | 2021-12-02 10:15 | P.PN ---
Subjective Progress Note Date: 12/01/21 - Reason for Consult Consult date: 11/30/21 Medical management - Chief Complaint Status post Juan Francisco fundoplication surgery. Laparoscopic. - History of Present Illness Status post Juan Francisco fundoplication surgery. Laparoscopic. Patient is a 46-year-old female with a known history of hypertension, GERD, osteoarthritis, seizure disorder and chronic degenerative disc disease and migraine headaches and prior history of cardiac catheterization and currently everyday smoker was admitted to the hospital for elective laparoscopic Juan Francisco fundoplication surgery. Patient has been having GERD symptoms for several years and recently underwent EGD showed esophagitis. Patient is status postprocedure. Currently complains of pain and is being continued on Dilaudid 1 mg IV push every 4 hourly. No complaints of chest pain or shortness breath. Complains of nausea. No episodes of vomiting. No headache or dizziness lightheadedness. No fever no chills. No cough or sputum production. 12/01/2021 Patient is seen and evaluated in follow-up being followed closely by general surgery services and is post Niesen fundoplication. Patient reports she has been up and walking multiple times and reports passing minimal gas although mostly belching. Patient is tolerating clear liquids and anticipates being discharged today. Patient reports she follows with Dr. Rivera outpatient and currently working on obtaining another primary care provider although is limited due to her insurance. Will provide resources on discharge. Agent with an incentive spirometer at the bedside and encourage the patient to continue using at least 10 times every hour while awake. Encouraged increased activity as tolerated and continued walking. Patient is afebrile denies chest pain or shortness of breath. Patient denies nausea or vomiting at this time. Review of systems: Constitutional: No reports of fatigue, fever, or chills Cardiovascular: No reports of chest pain or palpitations Respiratory: No reports of shortness of breath or cough GI: No reports of nausea, vomiting, or diarrhea, reports some abdominal distention and mostly belching with minimal gas, no reports of bowel movement : No reports of dysuria or retention Neurovascular: No reports of weakness or numbness All medications have been reviewed PHYSICAL EXAMINATION: Patient is sitting up in the chair comfortably, no acute distress, awake alert and oriented.. HEENT: Normocephalic. Neck is supple. Pupils reactive. Nostrils clear. Oral cavity is moist. Neck reveals no JVD, carotid bruits, or thyromegaly. CHEST EXAMINATION: Trachea is central. Symmetrical expansion. Lung fairchild clear to auscultation and percussion. CARDIAC: Normal S1, S2 with no gallops. No murmurs ABDOMEN: Soft. Bowel sounds present. Nontender. No organomegaly. No abdominal bruits. Extremities: reveal no edema. No clubbing or cyanosis Neurologically awake, alert, oriented x3 with well-coordinated movements. No focal deficits noted Skin: No rash or skin lesions. Psychiatric: Cooperative. Nonsuicidal, Musculoskeletal: No joint swelling or deformity. Normal range of motion. Assessment: S/p Juan Francisco fundoplication surgery laparoscopic postoperative day 1 Longstanding history of GERD. Hypertension uncontrolled likely due to pain History of CVA/TIA Chronic biliary disease Ongoing nicotine addiction DVT prophylaxis and GI prophylaxis Plan: Patient will be continued on current pain management, bowel regimen and encourage incentive spirometry. Symptomatic management for nausea. Patient reports she is belching with minimal gas and no bowel movement as of yet. Patient is tolerating clear liquid diet and plans are for possible discharge. Patient reports she follows with Dr. Rivera outpatient although currently looking for a new primary care provider but is limited due to her insurance. Requesting outpatient resources. Patient will be started back on amlodipine and monitor blood pressure closely. Continue with home medications. Further recommendations based on the clinical course. Thank you for this consultation and we will continue to follow with surgery during hospitalization. Smoking cessation has been counseled extensively. The impression and plan of care has been dictated by Nurse Hany Johnson as directed. Dr. Hamida MD I have performed a history and examination and MDM of this patient, discussed the same with the dictator, and agree with the dictator's assessment and plan as written ,documented as a scribe. Based on total visit time, I have performed more than 50% of the visit. Objective - Vital Signs Vital signs: Vital Signs Temp 99.3 F 12/01/21 05:00 Pulse 87 12/01/21 05:00 Resp 16 12/01/21 05:00 BP 134/83 12/01/21 05:00 Pulse Ox 94 L 12/01/21 05:00 FiO2 Intake & Output 11/30/21 12/01/21 12/01/21 18:59 06:59 18:59 Intake Total 1550 1500 Output Total 5 Balance 1545 1500 Weight 80.1 kg Intake: IV 1050 Intake, IV Titration 500 1500 Amount D5-0.45% NaCl with KCl 500 1500 20Meq/l 1,000 ml @ 125 mls/hr IV .Q8H JACOBO Rx#: [id number] Output: Estimated Blood Loss 5 Other: # Voids 2 - Labs CBC & Chem 7: 11/30/21 09:25 11/30/21 09:25 Labs: Abnormal Lab Results - Last 24 Hours (Table) 11/30/21 Range/Units 09:25 BUN 5 L (7-17) mg/dL
== END 2021-12-01 13:46 | disposition home or self-care (01) ==
LOC: OR 08:52 → 5NMEDONC 11:38 → OR 12-01 00:28 → 5NMEDONC 12-01 00:28
PROVIDERS: ADMIT Surgery; ATTEND Surgery
DX: K21.00 Gastro-esophageal reflux disease with esophagitis, without bleeding (principal); I25.10 Atherosclerotic heart disease of native coronary artery without angina pectoris; I10 Essential (primary) hypertension; M19.90 Unspecified osteoarthritis, unspecified site; G40.909 Epilepsy, unspecified, not intractable, without status epilepticus; G43.909 Migraine, unspecified, not intractable, without status migrainosus; Z98.890 Other specified postprocedural states; Z86.73 Personal history of transient ischemic attack (TIA), and cerebral infarction without residual deficits; Z87.442 Personal history of urinary calculi; Z82.49 Family history of ischemic heart disease and other diseases of the circulatory system; Z90.49 Acquired absence of other specified parts of digestive tract; F17.210 Nicotine dependence, cigarettes, uncomplicated; Z90.710 Acquired absence of both cervix and uterus; Z98.51 Tubal ligation status; Z79.1 Long term (current) use of non-steroidal anti-inflammatories (NSAID); Z79.899 Other long term (current) drug therapy; Z88.5 Allergy status to narcotic agent; Z88.8 Allergy status to other drugs, medicaments and biological substances; Z91.018 Allergy to other foods
CPT/HCPCS: 80053; 85025; 43280; G0378; J2250; J0330; J2710; J0690; J2405; J1650; J3010; J1170 ×2; J2704; J1644

== ENCOUNTER → 2022-01-12 | Outpatient (CLI) | payer OTHER ==
--- NOTE | 2022-01-14 09:25 | CT ---
EXAMINATION TYPE: CT pelvis wo con CT DLP: 586 mGycm, Automated exposure control for dose reduction was used. DATE OF EXAM: 01/12/2022 6:12 PM COMPARISON: 08/27/2020 CT CLINICAL INDICATION:Female, 46 years old with history of M46.1; pre surgical planning TECHNIQUE: Axial CT of the pelvis. Sagittal and coronal reformats were created on a separate worksta tion. Contrast used none Oral contrast used: without Oral Contrast FINDINGS: BLADDER: Unremarkable REPRODUCTIVE: The uterus is surgically absent. ABDOMEN & PELVIS STOMACH AND BOWEL: No evidence of bowel obstruction. Surgical clips in the right lower quadrant. Mode rate stool is seen within the rectum. There is prolapse of the rectum to the pubococcygeal line of at least 1.9 cm. Evaluation slightly limited without contrast. PERITONEUM: No evidence of pneumoperitoneum or free fluid. VASCULATURE: No evidence of aortic aneurysm. Mild atherosclerosis of the arterial vasculature. MUSCULOSKELETAL: No acute osseous abnormalities bone island is seen within the left inferior pubic ra mi/ischial tuberosity. LYMPH NODES: No gross evidence for lymphadenopathy. SOFT TISSUE/ABDOMINAL WALL: Small fat-containing hernia. IMPRESSION: 1. No evidence for acute abdominal process. 2. Small fat-containing umbilical hernia. 3. Pelvic floor prolapse of at least 1.9 cm.
== END | disposition home or self-care (01) ==
LOC: RADCTMAIN 16:56
PROVIDERS: ATTEND Psychiatry & Neurology Neurology
DX: M46.1 Sacroiliitis, not elsewhere classified (principal); K42.9 Umbilical hernia without obstruction or gangrene; N81.89 Other female genital prolapse
CPT/HCPCS: 72192

== ENCOUNTER 2022-01-14 18:39 | Emergency (ER) | payer OTHER ==
--- NOTE | 2022-01-14 20:44 | ED ---
General Adult HPI - General Chief complaint: Abdominal Pain Stated complaint: Bowel blockage Time Seen by Provider: 01/14/22 20:42 Source: patient Mode of arrival: ambulatory Limitations: no limitations - History of Present Illness Initial comments: Patient presents to the ED with her for evaluation. Patient states that she has not had a bowel movement in the past 6 days, and she states that she feels very uncomfortable. Patient states that she has diffuse lower abdominal pain. Patient states that she is concerned about a "bowel blockage". Patient states that she had surgery to repair a hiatal hernia a couple of months ago. Patient states that she has been taking stool softeners and laxatives without any improvement. Patient admits to tramadol use. Patient denies trauma or injury, fever or chills, headache, focal neuro deficit, chest pain or pressure, dyspnea, cough or cold symptoms, palpitations, dizziness, back pain, nausea or vomiting, diarrhea, bloody or melanotic stool, dysuria or urinary symptoms, decreased urine output, or any other symptoms or complaints. - Related Data Home Medications Medication Instructions Recorded Confirmed amLODIPine [Norvasc] 10 mg PO DAILY 09/16/20 01/14/22 Amitriptyline HCl [Elavil] 75 mg PO HS 05/23/21 01/14/22 Cyclobenzaprine [Flexeril] 10 mg PO BID 08/16/21 01/14/22 Gabapentin [Neurontin] 400 mg PO TID 11/10/21 01/14/22 traMADol HCL 50 mg PO BID PRN 01/14/22 01/14/22 Allergies Allergy/AdvReac Type Severity Reaction Status Date / Time codeine Allergy Rash/Hives Verified 01/14/22 18:48 diphenhydramine Allergy Rash/Hives Verified 01/14/22 18:48 [From Benadryl] methylprednisolone Allergy Itching Verified 01/14/22 18:48 [From Solu-Medrol] onion Allergy Rash/Hives Verified 01/14/22 18:48 Review of Systems ROS Statement: Those systems with pertinent positive or pertinent negative responses have been documented in the HPI. ROS Other: All systems not noted in ROS Statement are negative. Past Medical History Past Medical History: Coronary Artery Disease (CAD), Chest Pain / Angina, CVA/TIA, GERD/Reflux, Hypertension, Musculoskeletal Disorder, Osteoarthritis (OA), Seizure Disorder Additional Past Medical History / Comment(s): Degenerative Disc Disease, Migraines and blacks out with sever migraines., hx TIA x2 ., CTS jenifer., Hx kidney stones. 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., hiatal hernia, constipation History of Any Multi-Drug Resistant Organisms: None Reported Past Surgical History: Appendectomy, Cholecystectomy, Heart Catheterization, Hysterectomy, Tubal Ligation Additional Past Surgical History / Comment(s): PAIN CLINIC PROCEDURES., EGD Past Anesthesia/Blood Transfusion Reactions: No Reported Reaction Past Psychological History: Anxiety Smoking Status: Current every day smoker Past Alcohol Use History: None Reported Past Drug Use History: None Reported - Past Family History Mother Family Medical History: No Reported History Father Family Medical History: No Reported History Additional Family Medical History / Comment(s): Aunt and uncle mother's side with CAD s/p CABG. General Exam Limitations: no limitations General appearance: alert, in no apparent distress Head exam: Present: atraumatic, normocephalic Eye exam: Present: normal appearance, EOMI ENT exam: Present: mucous membranes moist Neck exam: Present: other (Trachea is in midline) Respiratory exam: Present: normal lung sounds bilaterally. Absent: respiratory distress, wheezes, rales, rhonchi, stridor Cardiovascular Exam: Present: normal rhythm, tachycardia, normal heart sounds, other (Normal radial pulses bilaterally) GI/Abdominal exam: Present: soft, hypoactive bowel sounds, other (Mild ge neralized abdominal tenderness). Absent: distended, guarding, rebound Extremities exam: Absent: tenderness, pedal edema Back exam: Absent: tenderness, CVA tenderness (R), CVA tenderness (L) Neurological exam: Present: alert, oriented X3. Absent: motor sensory deficit Psychiatric exam: Present: normal affect, normal mood Skin exam: Present: warm, dry, intact, normal color Course Vital Signs 01/14/22 18:46 Temperature 98.5 F Pulse Rate 111 H Respiratory 22 Rate Blood Pressure 169/101 O2 Sat by Pulse 96 Oximetry - Reevaluation(s) Reevaluation #1: 01/14/22 22:40 Patient denies development of any new symptoms while in the ED. Patient and are aware of the patient's test results. I have explained to the patient that I think that she would benefit from a digital rectal exam to help disimpact her rectal fecal impaction, but the patient adamantly refuses digital rectal exam. Patient prefers to try milk of magnesia laxative treatment, and she states that she will return to the ED should her symptoms persist. Patient was counseled about abdominal pain, constipation and rectal fecal impactions. Patient was clearly explained return and follow-up instructions. Patient was instructed to continue taking stool softeners as directed on the bottle. Jay ring was also instructed to avoid taking her tramadol if possible, and she was instructed to follow up closely with her primary care provider. Patient feels comfortable with this plan. Medical Decision Making - Medical Decision Making Patient has a benign/nonsurgical abdominal exam. Patient's labs are fairly unremarkable. Patient's CT abdomen/pelvis with IV contrast reveals findings consistent with rectal fecal impaction and constipation. Patient has refused digital rectal exam in the ED. Patient was given a dose of milk of magnesia in the ED. Will discharge patient home with her at this time. Patient feels comfortable with this plan. - Lab Data Result diagrams: 01/14/22 21:38 01/14/22 21:38 Lab Results 01/14/22 01/14/22 01/14/22 Range/Units 21:38 21:38 21:38 WBC 11.6 H (3.8-10.6) k/uL RBC 4.84 (3.80-5.40) m/uL Hgb 14.7 (11.4-16.0) gm/dL Hct 43.1 (34.0-46.0) % MCV 89.0 (80.0-100.0) fL MCH 30.3 (25.0-35.0) pg MCHC 34.1 (31.0-37.0) g/dL RDW 14.6 (11.5-15.5) % Plt Count 229 (150-450) k/uL MPV 9.6 Neutrophils % 67 % Lymphocytes % 24 % Monocytes % 4 % Eosinophils % 4 % Basophils % 1 % Neutrophils # 7.8 H (1.3-7.7) k/uL Lymphocytes # 2.8 (1.0-4.8) k/uL Monocytes # 0.5 (0-1.0) k/uL Eosinophils # 0.5 (0-0.7) k/uL Basophils # 0.1 (0-0.2) k/uL Manual Slide Review Performed Sodium 136 L (137-145) mmol/L Potassium 4.0 (3.5-5.1) mmol/L Chloride 103 (98-107) mmol/L Carbon Dioxide 22 (22-30) mmol/L Anion Gap 11 mmol/L BUN 8 (7-17) mg/dL Creatinine 0.43 L (0.52-1.04) mg/dL Est GFR (CKD-EPI)AfAm >90 (>60 ml/min/1.73 sqM) Est GFR (CKD-EPI)NonAf >90 (>60 ml/min/1.73 sqM) Glucose 108 H (74-99) mg/dL Plasma Lactic Acid Mikael 1.0 (0.7-2.0) mmol/L Calcium 9.6 (8.4-10.2) mg/dL Total Bilirubin 0.8 (0.2-1.3) mg/dL AST 28 (14-36) U/L ALT 22 (4-34) U/L Alkaline Phosphatase 75 (38-126) U/L Total Protein 7.4 (6.3-8.2) g/dL Albumin 4.5 (3.5-5.0) g/dL Lipase 57 (23-300) U/L - Radiology Data CT abdomen/pelvis with IV contrast: Rectal fecal impaction and presacral perirectal edema consistent with some degree of constipation. This appears new compared to the old exam. Disposition Clinical Impression: Abdominal pain, Constipation, Fecal impaction in rectum Disposition: HOME SELF-CARE Condition: Stable Instructions (If sedation given, give patient instructions): Abdominal Pain (ED), Constipation (ED), Fecal Impaction (ED) Additional Instructions: Return to the ER immediately should you develop new or worsening pain, a fever, vomiting, feeling dizzy or faint, shortness of breath, or new or worsening symptoms. Follow up closely with your primary care provider. Is patient prescribed a controlled substance at d/c from ED?: No Referrals: Saud Guerra MD [Primary Care Provider] - 1-2 days Time of Disposition: 22:50
[2022-01-14] MEDS ORDERED: SODIUM CHLORIDE 0.9% 1,000 ML IV ONE (20:50)
[2022-01-14] MEDS ORDERED: HYDROmorphone 1 MG/ML 1 ML SYRINGE IVP STA (20:50)
[2022-01-14 21:50] LABS: Basophils # (A) 0.1 k/uL (0-0.2); Basophils % (A) 1 %; Eosinophils # (A) 0.5 k/uL (0-0.7); Eosinophils % (A) 4 %; HCT 43.1 % (34.0-46.0); HGB 14.7 gm/dL (11.4-16.0); Lymphocytes # (A) 2.8 k/uL (1.0-4.8); Lymphocytes % (A) 24 %; MCH 30.3 pg (25.0-35.0); MCHC 34.1 g/dL (31.0-37.0); Mean Platelet Volume 9.6; Monocytes # (A) 0.5 k/uL (0-1.0); Monocytes % (A) 4 %; Neutrophils # (A) 7.8 k/uL (1.3-7.7); Neutrophils % (A) 67 %; Platelet Count 229 k/uL (150-450); RBC 4.84 m/uL (3.80-5.40); RDW 14.6 % (11.5-15.5); WBC 11.6 k/uL (3.8-10.6)
[2022-01-14 22:06] LABS: ALT 22 U/L (4-34); AST 28 U/L (14-36); African American GFR (CKD) >90 (>60 ml/min/1.73 sqM); Albumin 4.5 g/dL (3.5-5.0); Alkaline Phosphatase 75 U/L (38-126); Anion Gap 11 mmol/L; Blood Urea Nitrogen 8 mg/dL (7-17); Calcium 9.6 mg/dL (8.4-10.2); Carbon Dioxide 22 mmol/L (22-30); Chloride 103 mmol/L (98-107); Glucose 108 mg/dL (74-99); Lipase 57 U/L (23-300); Non-African American GFR(CKD) >90 (>60 ml/min/1.73 sqM); Sodium 136 mmol/L (137-145); Total Bilirubin 0.8 mg/dL (0.2-1.3); Total Protein 7.4 g/dL (6.3-8.2)
--- NOTE | 2022-01-14 22:06 | CT ---
EXAMINATION TYPE: CT abdomen pelvis w con DATE OF EXAM: 01/14/2022 COMPARISON: 01/25/2021 HISTORY: Possible blockage CT DLP: 1094.8 mGycm Automated exposure control for dose reduction was used. CONTRAST: Performed with IV Contrast, patient injected with 100cc mL of Isovue 300. Images obtained from the diaphragm to the floor the pelvis with the IV contrast. The lung bases are clear. No pleural effusion. Heart size is normal. No pericardial effusion. There a re clips at the gastroesophageal junction. There are clips from cholecystectomy. Liver and spleen are intact. The bile ducts are not dilated. No pancreatic mass. There is no adrenal mass. Kidneys show satisfactory contrast opacification. No hydronephrosis. Ureter s are not dilated. No retroperitoneal adenopathy there are clips apparently from appendectomy. Bladde r distends smoothly. No inguinal hernia. There is retained fecal material in the rectum. The rectum measures 7 cm. No mesenteric edema. No ascites or free air. The lumbar vertebrae have normal alignment. Posterior el ements are intact. No compression fracture. The bony pelvis is intact. There is some mild presacral edema. IMPRESSION: Rectal fecal impaction and presacral perirectal edema consistent with some degree of constipation. Th is appears new compared to the old exam
[2022-01-14] MEDS ORDERED: MAGNESIUM CITRATE 296 ML BOTTLE PO STA (22:41)
[2022-01-14] MEDS ORDERED: MAGNESIUM HYDROXIDE 2,400 MG/10 ML CUP PO PRN (22:47)
[2022-01-14 23:38] VITALS: BP 138/102; PULSE 90; RESP 19; TEMP 98.6
== END 2022-01-14 23:37 | disposition home or self-care (01) ==
LOC: EC 18:39
DX: R10.9 Unspecified abdominal pain (principal); K56.41 Fecal impaction; I25.10 Atherosclerotic heart disease of native coronary artery without angina pectoris; G45.9 Transient cerebral ischemic attack, unspecified; K21.9 Gastro-esophageal reflux disease without esophagitis; I10 Essential (primary) hypertension; M19.90 Unspecified osteoarthritis, unspecified site; G40.909 Epilepsy, unspecified, not intractable, without status epilepticus; F41.9 Anxiety disorder, unspecified; F17.200 Nicotine dependence, unspecified, uncomplicated; Z79.83 Long term (current) use of bisphosphonates; Z79.899 Other long term (current) drug therapy; Z79.891 Long term (current) use of opiate analgesic; Z88.5 Allergy status to narcotic agent; Z88.8 Allergy status to other drugs, medicaments and biological substances; Z91.018 Allergy to other foods
CPT/HCPCS: 36415; 80053; 83605; 83690; 85025; 74177; 99284; 96374; J1170; Q9967

== ENCOUNTER → 2022-02-02 | Outpatient (CLI) | payer OTHER ==
--- NOTE | 2022-02-03 06:44 | MR ---
EXAMINATION TYPE: MR lumbar spine wo con DATE OF EXAM: 02/02/2022 COMPARISON: MRI lumbar spine December 28, 2015. CT abdomen and pelvis January 14, 2022 HISTORY: Low back pain that radiates down left leg. TECHNIQUE: Multiplanar, multisequence imaging of the lumbar spine is performed without IV contrast. FINDINGS: Sagittal images of the lumbar spine show vertebral body heights and alignment to remain sat isfactory. Interval progression in multilevel disc desiccation on current study. This space heights a re maintained however. The conus medullaris remains normal in position and signal ending at superior L1 vertebral body level. The bone marrow signal intensity is within normal limits. No significant sp urring is present. Axial images show the T12-L1 and L1-L2 levels to remain within normal limits. Axial images at L2-L3 level redemonstrate mild broad disc bulge minimally effacing anterior thecal sa c, bilateral neural foramina remain patent. Axial images at the L3-L4 level remains within normal limits. Axial images at L4-L5 level redemonstrates mild facet arthropathy bilaterally. Axial images at L5-S1 level redemonstrates [id number] facet arthropathy bilaterally. There is f ocal central disc protrusion on axial image 2 the spinal canal is preserved as is increased epidural fat. Bilateral neural foramina remain patent. Paraspinal muscle bulk is maintained. IMPRESSION: Mild multilevel degenerative changes in the mid to lower lumbar spine as detailed above. Only slight degenerative progression from 2016 MRI noted.
== END | disposition home or self-care (01) ==
LOC: RADMRIMAIN 16:16
PROVIDERS: ATTEND Psychiatry & Neurology Pain Medicine
DX: M54.50 Low back pain, unspecified (principal)
CPT/HCPCS: 72148

== ENCOUNTER 2022-03-30 13:14 | Emergency (ER) | payer OTHER ==
--- NOTE | 2022-03-30 14:18 | ED ---
General Adult HPI - General Chief complaint: Abdominal Pain Stated complaint: Kidney stone Time Seen by Provider: 03/30/22 13:53 Source: patient, RN notes reviewed Mode of arrival: ambulatory Limitations: no limitations - History of Present Illness Initial comments: 46 year old male presenting to the emergency department complaining of periumbilical pain that radiates to her right flank. She describes the pain as sharp that is worse with movement. She has not tried anything for her pain. She denies fever, chills, vomiting, dysuria, hematuria. She reports her last bowel movement was this morning and was normal for her. She reports a history of kidne y stones and this feels the same. She reports appendectomy, cholecystectomy. - Related Data Home Medications Medication Instructions Recorded Confirmed amLODIPine [Norvasc] 10 mg PO DAILY 09/16/20 01/14/22 Amitriptyline HCl [Elavil] 75 mg PO HS 05/23/21 01/14/22 Cyclobenzaprine [Flexeril] 10 mg PO BID 08/16/21 01/14/22 Gabapentin [Neurontin] 400 mg PO TID 11/10/21 01/14/22 traMADol HCL 50 mg PO BID PRN 01/14/22 01/14/22 Allergies Allergy/AdvReac Type Severity Reaction Status Date / Time codeine Allergy Rash/Hives Verified 01/14/22 18:48 diphenhydramine Allergy Rash/Hives Verified 01/14/22 18:48 [From Benadryl] methylprednisolone Allergy Itching Verified 01/14/22 18:48 [From Solu-Medrol] onion Allergy Rash/Hives Verified 01/14/22 18:48 Review of Systems ROS Statement: Those systems with pertinent positive or pertinent negative responses have been documented in the HPI. ROS Other: All systems not noted in ROS Statement are negative. Past Medical History Past Medical History: Coronary Artery Disease (CAD), Chest Pain / Angina, CVA/TIA, GERD/Reflux, Hypertension, Musculoskeletal Disorder, Osteoarthritis (OA), Seizure Disorder Additional Past Medical History / Comment(s): kidney stones Degenerative Disc Disease, Migraines and blacks out with sever migraines., hx TIA x2 ., CTS jenifer., Hx kidney stones. 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., hiatal hernia, constipation History of Any Multi-Drug Resistant Organisms: None Reported Past Surgical History: Appendectomy, Cholecystectomy, Heart Catheterization, Hysterectomy, Tubal Ligation Additional Past Surgical History / Comment(s): PAIN CLINIC PROCEDURES., EGD Past Anesthesia/Blood Transfusion Reactions: No Reported Reaction Past Psychological History: Anxiety Smoking Status: Current every day smoker Past Alcohol Use History: None Reported Past Drug Use History: None Reported - Past Family History Mother Family Medical History: No Reported History Father Family Medical History: No Reported History Additional Family Medical History / Comment(s): Aunt and uncle mother's side with CAD s/p CABG. General Exam Limitations: no limitations General appearance: alert, in no apparent distress Head exam: Present: atraumatic, normocephalic, normal inspection Eye exam: Present: normal appearance ENT exam: Present: normal exam, mucous membranes moist Neck exam: Present: normal inspection. Absent: tenderness, meningismus, lymphadenopathy Respiratory exam: Present: normal lung sounds bilaterally. Absent: respiratory distress, wheezes, rales, rhonchi, stridor Cardiovascular Exam: Present: regular rate, normal rhythm, normal heart sounds. Absent: systolic murmur, diastolic murmur, rubs, gallop, clicks GI/Abdominal exam: Present: soft, normal bowel sounds. Absent: distended, tenderness, guarding, rebound, rigid Extremities exam: Present: normal inspection, full ROM, normal capillary refill. Absent: tenderness, pedal edema, joint swelling, calf tenderness Back exam: Present: normal inspection, CVA tenderness (R) Neurological exam: Present: alert, oriented X3, CN II-XII intact Psychiatric exam: Present: normal affect, normal mood Skin exam: Present: warm, dry, intact, normal color. Absent: rash Course Vital Signs 03/30/22 03/30/22 13:33 15:52 Temperature 97.7 F Pulse Rate 107 H 86 Respiratory 20 18 Rate Blood Pressure 125/71 117/68 O2 Sat by Pulse 96 95 Oximetry Medical Decision Making - Medical Decision Making Was pt. sent in by a medical professional or institution (, PA, [employer], urgent care, hospital, or senior living...) When possible be specific @ -self Did you speak to anyone other than the patient for history (EMS, parent, family, police, friend...)? What history was obtained from this source @ -[No] Did you review nursing and triage notes (agree or disagree)? Why? @ -[I reviewed and agree with nursing and triage notes] Were old charts reviewed (outside hosp., previous admission, EMS record, old EKG, old radiological studies, urgent care reports/EKG's, senior living records)? Report findings @ -[No old charts were reviewed] Differential Diagnosis (chest pain, altered mental status, abdominal pain women, abdominal pain men, vaginal bleeding, weakness, fever, dyspnea, syncope, h eadache, dizziness, GI bleed, back pain, seizure, CVA, palpatations, mental health)? @ -[not applicable] EKG interpreted by me (3pts min.). @ -[As above] X-rays interpreted by me (1pt min.). @ -[None done] CT interpreted by me (1pt min.). @ -[None done] U/S interpreted by me (1pt. min.). @ -[None done] What testing was considered but not performed or refused? (CT, X-rays, U/S, labs)? Why? @ -[None] What meds were considered but not given or refused? Why? @ -[None] Did you discuss the management of the patient with other professionals (professionals i.e. , PA, [employer], lab, RT, psych nurse, social worker school, rn provider relations, teacher, training officer, registered nurse hh case manager)? Give summary @ -[No] Was smoking cessation discussed for >3mins.? @ -[No] Was critical care preformed (if so, how long)? @ -[No] Were there social determinants of health that impacted care today? How? (Homelessness, low income, unemployed, alcoholism, drug addiction, transportation, low edu. Level, literacy, decrease access to med. care, mcc, rehab)? @ -[No] Was there de-escalation of care discussed even if they declined (Discuss DNR or withdrawal of care, Hospice)? DNR status @ -[No] What co-morbidities impacted this encounter? (DM, HTN, Smoking, COPD, CAD, Cancer, CVA, ARF, Chemo, Hep., AIDS, mental health diagnosis, sleep apnea, morbid obesity)? @ -[None] Was patient admitted / discharged? Hospital course, mention meds given and rout e, prescriptions, significant lab abnormalities, going to OR and other pertinent info. @ -Patient presents to the emergency department for R flank pain. Patient had lab work and performed in the emergency department which were essentially unremarkable. I discussed the results in detail with the patent, who verbalized understanding. Patient was given IV fluids, toradol, zofran, and morphine with symptomatic relief in the ER. Return precautions were discussed with recommend close follow up with PCP in 1-2 days. Patient was discharged with an EC starter pack for nausea. I discussed the Case with GABRIELLE Quiroga who agrees with plan for discharge. Undiagnosed new problem with uncertain prognosis? @ -R flank pain, r/out nephrolithiasis Drug Therapy requiring intensive monitoring for toxicity (Heparin, Nitro, Insul in, Cardizem)? @ -[No] Were any procedures done? @ -[No] Diagnosis/symptom? @ -R flank pain Acute, or Chronic, or Acute on Chronic? @ -acute Uncomplicated (without systemic symptoms) or Complicated (systemic symptoms)? @ -uncomplicated Side effects of treatment? @ -[No] Exacerbation, Progression, or Severe Exacerbation? @ -[No] Poses a threat to life or bodily function? How? (Chest pain, USA, ME, pneumonia, PE, COPD, DKA, ARF, appy, cholecystitis, CVA, Diverticulitis, Homicidal, Suicidal, threat to staff... and all critical care pts) @ -low likelihood - Lab Data Result diagrams: 03/30/22 15:04 03/30/22 15:37 Lab Results 03/30/22 03/30/22 03/30/22 Range/Units 15:04 15:04 15:37 WBC 8.2 (3.8-10.6) k/uL RBC 4.63 (3.80-5.40) m/uL Hgb 14.9 (11.4-16.0) gm/dL Hct 42.4 (34.0-46.0) % MCV 91.6 (80.0-100.0) fL MCH 32.2 (25.0-35.0) pg MCHC 35.2 (31.0-37.0) g/dL RDW 13.9 (11.5-15.5) % Plt Count 202 (150-450) k/uL MPV 10.8 Neutrophils % 66 % Lymphocytes % 24 % Monocytes % 4 % Eosinophils % 4 % Basophils % 1 % Neutrophils # 5.4 (1.3-7.7) k/uL Lymphocytes # 2.0 (1.0-4.8) k/uL Monocytes # 0.3 (0-1.0) k/uL Eosinophils # 0.3 (0-0.7) k/uL Basophils # 0.1 (0-0.2) k/uL Sodium 138 (137-145) mmol/L Potassium 3.9 (3.5-5.1) mmol/L Chloride 108 H (98-107) mmol/L Carbon Dioxide 23 (22-30) mmol/L Anion Gap 7 mmol/L BUN 4 L (7-17) mg/dL Creatinine 0.41 L (0.52-1.04) mg/dL Est GFR (CKD-EPI)AfAm >90 (>60 ml/min/1.73 sqM) Est GFR (CKD-EPI)NonAf >90 (>60 ml/min/1.73 sqM) Glucose 71 L (74-99) mg/dL Calcium 8.5 (8.4-10.2) mg/dL Total Bilirubin 0.4 (0.2-1.3) mg/dL AST 19 (14-36) U/L ALT 14 (4-34) U/L Alkaline Phosphatase 61 (38-126) U/L Total Protein 6.2 L (6.3-8.2) g/dL Albumin 3.6 (3.5-5.0) g/dL Urine Color Light Yellow Urine Appearance Clear (Clear) Urine pH 5.5 (5.0-8.0) Ur Specific [place] 1.008 (1.001-1.035) Urine Protein Negative (Negative) Urine Glucose (UA) Negative (Negative) Urine Ketones 2+ H (Negative) Urine Blood Negative (Negative) Urine Nitrite Negative (Negative) Urine Bilirubin Negative (Negative) Urine Urobilinogen <2.0 (<2.0) mg/dL Ur Leukocyte Esterase Negative (Negative) Disposition Clinical Impression: Right flank pain Disposition: HOME SELF-CARE Condition: Stable Instructions (If sedation given, give patient instructions): Kidney Stones (ED) Additional Instructions: please return to the nearest emergency department if worsening symptoms of fever, flank pain, dysuria develops Is patient prescribed a controlled substance at d/c from ED?: No Referrals: Saud Guerra MD [Primary Care Provider] - 1-2 days Time of Disposition: 17:01
[2022-03-30] MEDS ORDERED: SODIUM CHLORIDE 0.9% 1,000 ML IV ONE (14:46)
[2022-03-30] MEDS ORDERED: ONDANSETRON 4 MG/2 ML VIAL IVP STA (14:47)
[2022-03-30] MEDS ORDERED: KETOROLAC 15 MG/ML 1 ML VIAL IVP STA (14:47)
[2022-03-30 15:29] LABS: Appearance,Urine Clear (Clear); Basophils # (A) 0.1 k/uL (0-0.2); Basophils % (A) 1 %; Bilirubin,Urine Negative (Negative); Blood,Urine Negative (Negative); Color,Urine Light Yellow; Eosinophils # (A) 0.3 k/uL (0-0.7); Eosinophils % (A) 4 %; Glucose,Urine (UA) Negative (Negative); HCT 42.4 % (34.0-46.0); HGB 14.9 gm/dL (11.4-16.0); Ketones,Urine 2+ (Negative); Leukocyte Esterase,Urine Negative (Negative); Lymphocytes % (A) 24 %; MCH 32.2 pg (25.0-35.0); MCHC 35.2 g/dL (31.0-37.0); MCV 91.6 fL (80.0-100.0); Mean Platelet Volume 10.8; Monocytes # (A) 0.3 k/uL (0-1.0); Monocytes % (A) 4 %; Neutrophils # (A) 5.4 k/uL (1.3-7.7); Neutrophils % (A) 66 %; Nitrite,Urine Negative (Negative); PH, Urine 5.5 (5.0-8.0); Platelet Count 202 k/uL (150-450); Protein,Urine Negative (Negative); RBC 4.63 m/uL (3.80-5.40); RDW 13.9 % (11.5-15.5); Specific Gravity,Urine 1.008 (1.001-1.035); Urobilinogen,Urine <2.0 mg/dL (<2.0); WBC 8.2 k/uL (3.8-10.6)
[2022-03-30] MEDS ORDERED: MORPHINE SULFATE 2 MG/ML SYRINGE IVP ONE (15:38)
[2022-03-30 15:54] VITALS: RESP 18
[2022-03-30 16:19] LABS: ALT 14 U/L (4-34); AST 19 U/L (14-36); African American GFR (CKD) >90 (>60 ml/min/1.73 sqM); Albumin 3.6 g/dL (3.5-5.0); Alkaline Phosphatase 61 U/L (38-126); Anion Gap 7 mmol/L; Blood Urea Nitrogen 4 mg/dL (7-17); Calcium 8.5 mg/dL (8.4-10.2); Carbon Dioxide 23 mmol/L (22-30); Chloride 108 mmol/L (98-107); Glucose 71 mg/dL (74-99); Non-African American GFR(CKD) >90 (>60 ml/min/1.73 sqM); Potassium 3.9 mmol/L (3.5-5.1); Sodium 138 mmol/L (137-145); Total Bilirubin 0.4 mg/dL (0.2-1.3); Total Protein 6.2 g/dL (6.3-8.2)
--- NOTE | 2022-03-30 16:29 | CT ---
EXAMINATION TYPE: CT abdomen pelvis wo con DATE OF EXAM: 03/30/2022 HISTORY: right flank pain CT DLP: 566.4 mGycm. Automated Exposure Control for Dose Reduction was Utilized. TECHNIQUE: CT abdomen and pelvis without contrast COMPARISON: Prior CT January 14, 2022 FINDINGS: Within the limitations of a non-contrast study, the following observations are made. LUNG BASES: No significant abnormality is appreciated. LIVER/GB: Cholecystectomy clips are redemonstrated. Prominent right hepatic lobe and/or mild cardiome sheron again seen. PANCREAS: No significant abnormality is seen. SPLEEN: No significant abnormality is seen. ADRENALS: No significant abnormality is seen. KIDNEYS: No renal stones or hydronephrosis is present bilaterally. BOWEL: Surgical clips just below diaphragm from prior [place] surgery are redemonstrated. Surgical ace nges from appendectomy at base of cecum redemonstrated. No suspicious small or large bowel dilatation . GENITAL ORGANS: Uterus surgically absent or markedly atrophic. LYMPH NODES: No greater than 1cm abdominal or pelvic lymph nodes are appreciated. OSSEOUS STRUCTURES: No significant abnormality is seen. OTHER: No significant additional abnormality is seen. IMPRESSION: No renal stones or hydronephrosis is seen bilaterally. No suspicious new or acute finding s evident.
[2022-03-30] MEDS ORDERED: ONDANSETRON 4 MG ODT STARTER PACK 2 TAB BTL PO STA (17:09)
[2022-03-30 17:55] VITALS: BP 125/75; PULSE 83; TEMP 97.6
== END 2022-03-30 17:55 | disposition home or self-care (01) ==
LOC: EC 13:14
DX: R10.9 Unspecified abdominal pain (principal); I25.10 Atherosclerotic heart disease of native coronary artery without angina pectoris; Z86.73 Personal history of transient ischemic attack (TIA), and cerebral infarction without residual deficits; I10 Essential (primary) hypertension; M19.90 Unspecified osteoarthritis, unspecified site; G40.909 Epilepsy, unspecified, not intractable, without status epilepticus; Z90.49 Acquired absence of other specified parts of digestive tract; F41.9 Anxiety disorder, unspecified; F17.200 Nicotine dependence, unspecified, uncomplicated; Z88.5 Allergy status to narcotic agent; Z88.8 Allergy status to other drugs, medicaments and biological substances; Z91.018 Allergy to other foods
CPT/HCPCS: 36415; 80053; 85025; 81003; 74176; 99284; 96374; 96375 ×2; 96361; J2405; J2270; J1885; S0119

== ENCOUNTER 2022-08-19 18:20 | Emergency (ER) | payer OTHER ==
[2022-08-19 18:24] VITALS: RESP 20
--- NOTE | 2022-08-19 18:27 | ED ---
General Adult HPI - General Chief complaint: Abdominal Pain Stated complaint: Abd pain/backpain Source: patient Mode of arrival: wheelchair Limitations: no limitations - History of Present Illness Initial comments: Patient presents to the ED with her cousin for evaluation. Patient states that she has had right flank pain radiating to the right side of her abdomen since about 9 AM this morning. Patient admits to having associated nausea, but she denies vomiting. Patient also states that she feels that she noticed some blood in her urine this morning. Patient states "I think I have a kidney stone". Patient states that she has a history of kidney stones. Patient denies trauma or injury, fever or chills, headache, focal neuro deficit, chest pain or pressure, dyspnea, cough or cold symptoms, dizziness, vomiting, diarrhea or constipation, bloody or melanotic stool, dysuria, urinary frequency, leg pain/numbness/weakness, incontinence, or any other symptoms or complaints. - Related Data Home Medications Medication Instructions Recorded Confirmed amLODIPine [Norvasc] 10 mg PO DAILY 09/16/20 05/15/22 Cyclobenzaprine [Flexeril] 10 mg PO BID PRN 08/16/21 05/15/22 traMADol HCL 50 mg PO TID PRN 01/14/22 05/15/22 Atogepant [Qulipta] 60 mg PO DAILY 05/12/22 05/15/22 Nitroglycerin Sl Tabs [Nitrostat] 0.4 mg SL Q5M PRN 05/13/22 05/15/22 Gabapentin [Neurontin] 400 mg PO TID 05/15/22 05/15/22 Allergies Allergy/AdvReac Type Severity Reaction Status Date / Time codeine Allergy Rash/Hives Verified 08/19/22 18:24 diphenhydramine Allergy Rash/Hives Verified 08/19/22 18:24 [From Benadryl] methylprednisolone Allergy Itching Verified 08/19/22 18:24 [From Solu-Medrol] onion Allergy Rash/Hives Verified 08/19/22 18:24 Review of Systems ROS Statement: Those systems with pertinent positive or pertinent negative responses have been documented in the HPI. ROS Other: All systems not noted in ROS Statement are negative. Past Medical History Past Medical History: CVA/TIA Additional Past Medical History / Comment(s): kidney stones Degenerative Disc Disease, Migraines and blacks out with sever migraines., hx TIA x2 ., CTS jenifer., Hx kidney stones. 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., hiatal hernia, constipation History of Any Multi-Drug Resistant Organisms: None Reported Past Surgical History: Appendectomy, Cholecystectomy, Heart Catheterization, Hysterectomy, Tubal Ligation Additional Past Surgical History / Comment(s): PAIN CLINIC PROCEDURES., EGD Past Anesthesia/Blood Transfusion Reactions: No Reported Reaction Past Psychological History: Anxiety Smoking Status: Current every day smoker Past Alcohol Use History: None Reported Past Drug Use History: None Reported - Past Family History Mother Family Medical History: No Reported History Father Family Medical History: No Reported History Additional Family Medical History / Comment(s): Aunt and uncle mother's side with CAD s/p CABG. General Exam Limitations: no limitations General appearance: alert, in no apparent distress Head exam: Present: normocephalic ENT exam: Present: mucous membranes moist Respiratory exam: Present: normal lung sounds bilaterally. Absent: respiratory distress, wheezes, rales, rhonchi, stridor Cardiovascular Exam: Present: regular rate, normal rhythm, normal heart sounds, other (Normal radial pulses bilaterally) GI/Abdominal exam: Present: soft. Absent: distended, tenderness, guarding Extremities exam: Present: full ROM. Absent: tenderness, pedal edema, calf tenderness Back exam: Present: other (Mild right CVA tenderness) Neurological exam: Present: alert, oriented X3, other (No evidence of lower extremity neurological deficit or saddle anesthesia on exam). Absent: motor sensory deficit Psychiatric exam: Present: normal affect, normal mood Skin exam: Present: warm, dry, intact, normal color Course Vital Signs 08/19/22 18:22 Temperature 98.3 F Pulse Rate 98 Respiratory 20 Rate Blood Pressure 127/83 O2 Sat by Pulse 98 Oximetry Medical Decision Making - Medical Decision Making Was pt. sent in by a medical professional or institution (, PA, HOUSEKEEPING/LAUNDRY, urgent c are, hospital, or intermediate...) When possible be specific @ -No Did you speak to anyone other than the patient for history (EMS, parent, family, police, friend...)? What history was obtained from this source @ -No Did you review nursing and triage notes (agree or disagree)? Why? @ -I reviewed and agree with nursing and triage notes Were old charts reviewed (outside hosp., previous admission, EMS record, old EKG, old radiological studies, urgent care reports/EKG's, intermediate records)? Report findings @ -No old charts were reviewed Differential Diagnosis (chest pain, altered mental status, abdominal pain women, abdominal pain men, vaginal bleeding, weakness, fever, dyspnea, syncope, headache, dizziness, GI bleed, back pain, seizure, CVA, palpatations, mental health, musculoskeletal)? @ -Abdominal pain, flank pain, musculoskeletal, renal stone, ureteral stone, UTI, pyelonephritis, hepatitis, pancreatic status, gastritis, GERD, PUD, enteritis, colitis, bowel obstruction EKG interpreted by me (3pts min.). @ -None done X-rays interpreted by me (1pt min.). @ -None done CT interpreted by me (1pt min.). @ -Noncontrast CT abdomen/pelvis was reviewed myself and shows no acute abnormality. I agree with the radiologist's interpretation as above. U/S interpreted by me (1pt. min.). @ -None done What testing was considered but not performed or refused? (CT, X-rays, U/S, labs)? Why? @ -None What meds were considered but not given or refused? Why? @ -None Did you discuss the management of the patient with other professionals (professionals i.e. , PA, HOUSEKEEPING/LAUNDRY, lab, RT, psych nurse, rn social work, ambulance assistant, teacher, special service officer, employment evaluator/case manager)? Give summary @ -No Was smoking cessation discussed for >3mins.? @ -No Was critical care preformed (if so, how long)? @ -No Were there social determinants of health that impacted care today? How? (Homelessness, low income, unemployed, alcoholism, drug addiction, transportation, low edu. Level, literacy, decrease access to med. care, retirement, rehab)? @ -No Was there de-escalation of care discussed even if they declined (Discuss DNR or withdrawal of care, Hospice)? DNR status @ -No What co-morbidities impacted this encounter? (DM, HTN, Smoking, COPD, CAD, Cancer, CVA, ARF, Chemo, Hep., AIDS, mental health diagnosis, sleep apnea, morbid obesity)? @ -None Was patient admitted / discharged? Hospital course, mention meds given and route, prescriptions, significant lab abnormalities, going to OR and other pertinent info. @ -Patient's pain has improved with ED treatment, and he states that she wishes to go home now. Patient has a soft and nonsurgical abdominal exam. Patient is afebrile and without leukocytosis. Patient's labs and imaging studies are fairly unremarkable. I do not suspect an emergent medical or surgical condition at this time. Will discharge patient home with her cousin at this time. Patient was counseled about flank pain, and she was clearly explained return and follow-up instructions. Patient was instructed to follow up closely with her primary care provider. Patient feels comfortable with this plan. Undiagnosed new problem with uncertain prognosis? @ -No Drug Therapy requiring intensive monitoring for toxicity (Heparin, Nitro, Insulin, Cardizem)? @ -No Were any procedures done? @ -No Diagnosis/symptom? @ -Right flank pain Acute, or Chronic, or Acute on Chronic? @ -Acute Uncomplicated (without systemic symptoms) or Complicated (systemic symptoms)? @ -default Side effects of treatment? @ -No Exacerbation, Progression, or Severe Exacerbation? @ -No Poses a threat to life or bodily function? How? (Chest pain, [place], [place], pneumonia, PE, COPD, DKA, ARF, appy, cholecystitis, CVA, Diverticulitis, Homicidal, Abdi icidal, threat to staff... and all critical care pts) @ -No - Lab Data Result diagrams: 08/19/22 18:38 08/19/22 18:38 Lab Results 08/19/22 08/19/22 08/19/22 Range/Units 18:38 18:38 18:38 WBC 10.4 (3.8-10.6) k/uL RBC 5.12 (3.80-5.40) m/uL Hgb 15.7 (11.4-16.0) gm/dL Hct 47.4 H (34.0-46.0) % MCV 92.7 (80.0-100.0) fL MCH 30.7 (25.0-35.0) pg MCHC 33.1 (31.0-37.0) g/dL RDW 14.7 (11.5-15.5) % Plt Count 249 (150-450) k/uL MPV 9.5 Neutrophils % 63 % Lymphocytes % 21 % Monocytes % 5 % Eosinophils % 9 % Basophils % 1 % Neutrophils # 6.5 (1.3-7.7) k/uL Lymphocytes # 2.1 (1.0-4.8) k/uL Monocytes # 0.6 (0-1.0) k/uL Eosinophils # 1.0 H (0-0.7) k/uL Basophils # 0.1 (0-0.2) k/uL Sodium 138 (137-145) mmol/L Potassium 4.0 (3.5-5.1) mmol/L Chloride 104 (98-107) mmol/L Carbon Dioxide 24 (22-30) mmol/L Anion Gap 10 mmol/L BUN 7 (7-17) mg/dL Creatinine 0.48 L (0.52-1.04) mg/dL Est GFR (CKD-EPI)AfAm >90 (>60 ml/min/1.73 sqM) Est GFR (CKD-EPI)NonAf >90 (>60 ml/min/1.73 sqM) Glucose 99 (74-99) mg/dL Calcium 9.1 (8.4-10.2) mg/dL Total Bilirubin 0.5 (0.2-1.3) mg/dL AST 36 (14-36) U/L ALT 20 (4-34) U/L Alkaline Phosphatase 55 (38-126) U/L Total Protein 7.5 (6.3-8.2) g/dL Albumin 4.4 (3.5-5.0) g/dL Lipase 177 (23-300) U/L Urine Color Yellow Urine Appearance Clear (Clear) Urine pH 6.0 (5.0-8.0) Ur Specific [place] 1.021 (1.001-1.035) Urine Protein Negative (Negative) Urine Glucose (UA) Negative (Negative) Urine Ketones Negative (Negative) Urine Blood Negative (Negative) Urine Nitrite Negative (Negative) Urine Bilirubin Negative (Negative) Urine Urobilinogen 3.0 (<2.0) mg/dL Ur Leukocyte Esterase Negative (Negative) Urine Opiates Screen (NotDetected) Ur Oxycodone Screen (NotDetected) Urine Methadone Screen (NotDetected) Ur Propoxyphene Screen (NotDetected) Ur Barbiturates Screen (NotDetected) U Tricyclic Antidepress (NotDetected) Ur Phencyclidine Scrn (NotDetected) Ur Amphetamines Screen (NotDetected) U Methamphetamines Scrn (NotDetected) U Benzodiazepines Scrn (NotDetected) Urine Cocaine Screen (NotDetected) U Marijuana (THC) Screen (NotDetected) 08/19/22 Range/Units 18:38 WBC (3.8-10.6) k/uL RBC (3.80-5.40) m/uL Hgb (11.4-16.0) gm/dL Hct (34.0-46.0) % MCV (80.0-100.0) fL MCH (25.0-35.0) pg MCHC (31.0-37.0) g/dL RDW (11.5-15.5) % Plt Count (150-450) k/uL MPV Neutrophils % % Lymphocytes % % Monocytes % % Eosinophils % % Basophils % % Neutrophils # (1.3-7.7) k/uL Lymphocytes # (1.0-4.8) k/uL Monocytes # (0-1.0) k/uL Eosinophils # (0-0.7) k/uL Basophils # (0-0.2) k/uL Sodium (137-145) mmol/L Potassium (3.5-5.1) mmol/L Chloride (98-107) mmol/L Carbon Dioxide (22-30) mmol/L Anion Gap mmol/L BUN (7-17) mg/dL Creatinine (0.52-1.04) mg/dL Est GFR (CKD-EPI)AfAm (>60 ml/min/1.73 sqM) Est GFR (CKD-EPI)NonAf (>60 ml/min/1.73 sqM) Glucose (74-99) mg/dL Calcium (8.4-10.2) mg/dL Total Bilirubin (0.2-1.3) mg/dL AST (14-36) U/L ALT (4-34) U/L Alkaline Phosphatase (38-126) U/L Total Protein (6.3-8.2) g/dL Albumin (3.5-5.0) g/dL Lipase (23-300) U/L Urine Color Urine Appearance (Clear) Urine pH (5.0-8.0) Ur Specific [place] (1.001-1.035) Urine Protein (Negative) Urine Glucose (UA) (Negative) Urine Ketones (Negative) Urine Blood (Negative) Urine Nitrite (Negative) Urine Bilirubin (Negative) Urine Urobilinogen (<2.0) mg/dL Ur Leukocyte Esterase (Negative) Urine Opiates Screen Not Detected (NotDetected) Ur Oxycodone Screen Not Detected (NotDetected) Urine Methadone Screen Not Detected (NotDetected) Ur Propoxyphene Screen Not Detected (NotDetected) Ur Barbiturates Screen Not Detected (NotDetected) U Tricyclic Antidepress Detected H (NotDetected) Ur Phencyclidine Scrn Not Detected (NotDetected) Ur Amphetamines Screen Not Detected (NotDetected) U Methamphetamines Scrn Not Detected (NotDetected) U Benzodiazepines Scrn Not Detected (NotDetected) Urine Cocaine Screen Not Detected (NotDetected) U Marijuana (THC) Screen Not Detected (NotDetected) - Radiology Data Noncontrast CT abdomen/pelvis: 1. No acute intra-abdominal or intrapelvic process. 2. Incidental findings as detailed above. Disposition Clinical Impression: Flank pain Disposition: HOME SELF-CARE Condition: Stable Instructions (If sedation given, give patient instructions): Flank Pain (ED) Additional Instructions: Return to the ER immediately should you develop new or worsening pain, a fever, vomiting, shortness of breath, feeling dizzy or faint, or new or worsening symptoms. Follow up closely with your primary care provider. Is patient prescribed a controlled substance at d/c from ED?: No Referrals: None,Stated [Primary Care Provider] - 1-2 days Joe Nolan MD [STAFF PHYSICIAN] - 1-2 days Time of Disposition: 21:37
[2022-08-19] MEDS ORDERED: SODIUM CHLORIDE 0.9% 1,000 ML IV STA (18:30)
[2022-08-19] MEDS ORDERED: ONDANSETRON ODT 8 MG TAB.RAPDIS PO STA (18:30)
[2022-08-19] MEDS ORDERED: KETOROLAC 15 MG/ML 1 ML VIAL IVP STA (18:31)
[2022-08-19] MEDS ORDERED: HYDROmorphone 0.5 MG/0.5 ML SYRINGE IVP STA ×2 (18:32→20:53)
[2022-08-19 19:07] LABS: Basophils # (A) 0.1 k/uL (0-0.2); Basophils % (A) 1 %; Eosinophils % (A) 9 %; HCT 47.4 % (34.0-46.0); HGB 15.7 gm/dL (11.4-16.0); Lymphocytes # (A) 2.1 k/uL (1.0-4.8); Lymphocytes % (A) 21 %; MCH 30.7 pg (25.0-35.0); MCHC 33.1 g/dL (31.0-37.0); MCV 92.7 fL (80.0-100.0); Mean Platelet Volume 9.5; Monocytes # (A) 0.6 k/uL (0-1.0); Monocytes % (A) 5 %; Neutrophils # (A) 6.5 k/uL (1.3-7.7); Neutrophils % (A) 63 %; Platelet Count 249 k/uL (150-450); RBC 5.12 m/uL (3.80-5.40); RDW 14.7 % (11.5-15.5); WBC 10.4 k/uL (3.8-10.6)
[2022-08-19 19:11] LABS: Appearance,Urine Clear (Clear); Bilirubin,Urine Negative (Negative); Blood,Urine Negative (Negative); Color,Urine Yellow; Glucose,Urine (UA) Negative (Negative); Ketones,Urine Negative (Negative); Leukocyte Esterase,Urine Negative (Negative); Nitrite,Urine Negative (Negative); Protein,Urine Negative (Negative); Specific Gravity,Urine 1.021 (1.001-1.035)
[2022-08-19 19:16] LABS: ALT 20 U/L (4-34); AST 36 U/L (14-36); African American GFR (CKD) >90 (>60 ml/min/1.73 sqM); Albumin 4.4 g/dL (3.5-5.0); Alkaline Phosphatase 55 U/L (38-126); Anion Gap 10 mmol/L; Blood Urea Nitrogen 7 mg/dL (7-17); Calcium 9.1 mg/dL (8.4-10.2); Carbon Dioxide 24 mmol/L (22-30); Chloride 104 mmol/L (98-107); Lipase 177 U/L (23-300); Non-African American GFR(CKD) >90 (>60 ml/min/1.73 sqM); Sodium 138 mmol/L (137-145); Total Bilirubin 0.5 mg/dL (0.2-1.3); Total Protein 7.5 g/dL (6.3-8.2)
[2022-08-19 19:21] LABS: Amphetamine Screen,Urine Not Detected (NotDetected); Barbiturate Screen,Urine Not Detected (NotDetected); Benzodiazepines Screen,Urine Not Detected (NotDetected); Cocaine Screen,Urine Not Detected (NotDetected); Methadone Screen, Urine Not Detected (NotDetected); Opiate Screen,Urine Not Detected (NotDetected); Oxycodone Screen, Urine Not Detected (NotDetected); Phencyclidine Screen,Urine Not Detected (NotDetected); Tricyclic Antidepressant,Urine Detected (NotDetected); Urn Cannabinoid Scrn Not Detected (NotDetected)
[2022-08-19 19:28] LABS: Glucose 99 mg/dL (74-99)
--- NOTE | 2022-08-19 20:39 | CT ---
EXAMINATION TYPE: CT abdomen pelvis wo con CT DLP: 508.5 mGycm, Automated exposure control for dose reduction was used. DATE OF EXAM: 08/19/2022 7:34 PM COMPARISON: CT abdomen pelvis 05/08/2022 CLINICAL INDICATION:Female, 46 years old with history of right flank pain; RIGHT FLANK PAIN TECHNIQUE: Axial CT of the abdomen and pelvis. Sagittal and coronal reformats were created on a [employer] workstation. Contrast used: None. Oral contrast used: without Oral Contrast FINDINGS: LOWER CHEST: Diffuse ground glass attenuation the lower lobes bilaterally, likely on the basis of ate lectasis. ABDOMEN LIVER: Unremarkable GALLBLADDER AND BILE DUCTS: The gallbladder is surgically absent. PANCREAS: Unremarkable. SPLEEN: Unremarkable. ADRENAL GLANDS: Unremarkable. KIDNEYS AND URETERS: No evidence of hydronephrosis or renal calculus. The ureters are unremarkable. PELVIS BLADDER: Unremarkable REPRODUCTIVE: Unremarkable. ABDOMEN & PELVIS STOMACH AND BOWEL: Postsurgical changes to the distal esophagus status post Juan Francisco fundoplication. St omach and duodenum are unremarkable. Scattered diverticula are noted throughout the colon. No evidenc e of bowel obstruction. PERITONEUM: No evidence of pneumoperitoneum or free fluid. VASCULATURE: Mild aortobiiliac calcified atherosclerosis. MUSCULOSKELETAL: No acute osseous abnormalities. Stable sclerotic density in the left iliac (series 2 02, image 65) LYMPH NODES: No gross evidence for lymphadenopathy. SOFT TISSUE/ABDOMINAL WALL: Subcentimeter fat-containing umbilical hernia. IMPRESSION: 1. No acute intra-abdominal or intrapelvic process. 2. Incidental findings as detailed above.
[2022-08-19 22:00] VITALS: BP 126/72; PULSE 87; TEMP 98
== END 2022-08-19 21:58 | disposition home or self-care (01) ==
LOC: EC 18:20
DX: R10.9 Unspecified abdominal pain (principal); F41.9 Anxiety disorder, unspecified; F17.200 Nicotine dependence, unspecified, uncomplicated; Z86.73 Personal history of transient ischemic attack (TIA), and cerebral infarction without residual deficits; Z79.899 Other long term (current) drug therapy; Z88.5 Allergy status to narcotic agent; Z91.018 Allergy to other foods; Z88.8 Allergy status to other drugs, medicaments and biological substances; Z88.6 Allergy status to analgesic agent
CPT/HCPCS: 36415; 80053; 83690; 85025; 81003; 80306; 74176; 99284; 96374; 96375; 96376; 96361; J1885; J1170

== ENCOUNTER 2022-09-25 14:00 | Emergency (ER) | payer OTHER ==
[2022-09-25 14:22] VITALS: RESP 18
--- NOTE | 2022-09-25 15:36 | ED ---
General Adult HPI - General Chief complaint: Extremity Injury, Lower Stated complaint: L Leg pain Time Seen by Provider: 09/25/22 15:08 Source: patient, family, RN notes reviewed Mode of arrival: wheelchair Limitations: no limitations - History of Present Illness Initial comments: 46-year-old female presents emergency department chief complaint following a fall that occurred earlier this morning. She states that she tripped earlier and fell on her left hip. She states that she has pain in the left hip going down the left leg when she attempts to walk. She states that she has had a pain like this in the past and sees a neurologist in [place], [place]. She reports that she was supposed to have a procedure done but was unable to do so. She denies hitting her head, loss of consciousness, blood thinners. She denies loss of bowel or bladder function, urinary retention, saddle anesthesia, fever. She states that she takes norco, gabapentin, flexeril at home but states that she did not take them today. - Related Data Home Medications Medication Instructions Recorded Confirmed amLODIPine [Norvasc] 10 mg PO DAILY 09/16/20 05/15/22 Cyclobenzaprine [Flexeril] 10 mg PO BID PRN 08/16/21 05/15/22 traMADol HCL 50 mg PO TID PRN 01/14/22 05/15/22 Atogepant [Qulipta] 60 mg PO DAILY 05/12/22 05/15/22 Nitroglycerin Sl Tabs [Nitrostat] 0.4 mg SL Q5M PRN 05/13/22 05/15/22 Gabapentin [Neurontin] 400 mg PO TID 05/15/22 05/15/22 Allergies Allergy/AdvReac Type Severity Reaction Status Date / Time codeine Allergy Rash/Hives Verified 08/19/22 18:24 diphenhydramine Allergy Rash/Hives Verified 08/19/22 18:24 [From Benadryl] methylprednisolone Allergy Itching Verified 08/19/22 18:24 [From Solu-Medrol] onion Allergy Rash/Hives Verified 08/19/22 18:24 Review of Systems ROS Statement: Those systems with pertinent positive or pertinent negative responses have been documented in the HPI. ROS Other: All systems not noted in ROS Statement are negative. Past Medical History Past Medical History: CVA/TIA Additional Past Medical History / Comment(s): kidney stones Degenerative Disc Disease, Migraines and blacks out with sever migraines., hx TIA x2 ., CTS jenifer., Hx kidney stones. 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., hiatal hernia, constipation History of Any Multi-Drug Resistant Organisms: None Reported Past Surgical History: Appendectomy, Cholecystectomy, Heart Catheterization, Hysterectomy, Tubal Ligation Additional Past Surgical History / Comment(s): PAIN CLINIC PROCEDURES., EGD Past Anesthesia/Blood Transfusion Reactions: No Reported Reaction Past Psychological History: Anxiety Smoking Status: Current every day smoker Past Alcohol Use History: None Reported Past Drug Use History: None Reported - Past Family History Mother Family Medical History: No Reported History Father Family Medical History: No Reported History Additional Family Medical History / Comment(s): Aunt and uncle mother's side with CAD s/p CABG. General Exam Limitations: no limitations General appearance: alert, in no apparent distress Head exam: Present: atraumatic, normocephalic, normal inspection Eye exam: Present: normal appearance, PERRL, EOMI. Absent: scleral icterus, conjunctival injection, periorbital swelling ENT exam: Present: normal exam, mucous membranes moist Neck exam: Present: normal inspection, full ROM. Absent: tenderness, meningismus, lymphadenopathy Respiratory exam: Present: normal lung sounds bilaterally. Absent: respiratory distress, wheezes, rales, rhonchi, stridor Cardiovascular Exam: Present: regular rate, normal rhythm, normal heart sounds. Absent: systolic murmur, diastolic murmur, rubs, gallop, clicks GI/Abdominal exam: Present: soft, normal bowel sounds. Absent: distended, tenderness, guarding, rebound, rigid Extremities exam: Present: tenderness (right hip ), normal capillary refill, other (DP and PT pulses 2+) Back exam: Present: normal inspection Neurological exam: Present: alert, oriented X3 Psychiatric exam: Present: normal affect, normal mood Skin exam: Present: warm, dry, intact, normal color. Absent: rash Course Vital Signs 09/25/22 09/25/22 14:20 17:43 Temperature 98.5 F 98.3 F Pulse Rate 89 65 Respiratory 18 18 Rate Blood Pressure 114/75 131/75 O2 Sat by Pulse 99 98 Oximetry Medical Decision Making - Medical Decision Making Was pt. sent in by a medical professional or institution (KATRINA Gramajo, SECURITY SYSTEM INSTALLER, urgent care, hospital, or senior care...) When possible be specific @ -No Did you speak to anyone other than the patient for history (EMS, parent, family, police, friend...)? What history was obtained from this source @ -No Did you review nursing and triage notes (agree or disagree)? Why? @ -I reviewed and agree with nursing and triage notes Were old charts reviewed (outside hosp., previous admission, EMS record, old EKG, old radiological studies, urgent care reports/EKG's, senior care records)? Report findings @ -No old charts were reviewed Differential Diagnosis (chest pain, altered mental status, abdominal pain women, abdominal pain men, vaginal bleeding, weakness, fever, dyspnea, syncope, headache, dizziness, GI bleed, back pain, seizure, CVA, palpatations, mental health, musculoskeletal)? @ -Differential Musculoskeletal Muscular strain, contusion, ligament sprain, fracture, arthritis, septic arthritis, bursitis, cellulitis, muscle spasm, nerve compression, DVT, arterial occlusion, herpes zoster, electrolyte abnormality, tumor.... This is not meant to be in all inclusive list EKG interpreted by me (3pts min.). @ -none X-rays interpreted by me (1pt min.). @ -XR left hip showed showed no evidence for acute fracture CT interpreted by me (1pt min.). @ -None done U/S interpreted by me (1pt. min.). @ -None done What testing was considered but not performed or refused? (CT, X-rays, U/S, labs)? Why? @ -None What meds were considered but not given or refused? Why? @ -None Did you discuss the management of the patient with other professionals (professionals i.e. KATRINA Gramajo, SECURITY SYSTEM INSTALLER, lab, RT, psych nurse, social work professor, mine utility operator, teacher, nuclear security officer, shoe parts caser)? Give summary @ -No Was smoking cessation discussed for >3mins.? @ -No Was critical care preformed (if so, how long)? @ -No Were there social determinants of health that impacted care today? How? (Homelessness, low income, unemployed, alcoholism, drug addiction, transportation, low edu. Level, literacy, decrease access to med. care, senior living, rehab)? @ -No Was there de-escalation of care discussed even if they declined (Discuss DNR or withdrawal of care, Hospice)? DNR status @ -No What co-morbidities impacted this encounter? (DM, HTN, Smoking, COPD, CAD, Cancer, CVA, ARF, Chemo, Hep., AIDS, mental health diagnosis, sleep apnea, morbid obesity)? @ -None Was patient admitted / discharged? Hospital course, mention meds given and route, prescriptions, significant lab abnormalities, going to OR and other pert inent info. @ -Discharged. Patient presented to emergency department chief complaint of fall that occurred early this morning onto her left hip in which she did not hit her head or lose consciousness. Patient denies blood thinners. She is reporting left leg pain. Patient is reluctantly able to walk. Patient was treated with 1mg dilaudid, tylenol and a lidocaine patch and patient reports improvement in her pain. Patient stable at time of discharge. Case discussed with my attending, Dr. Hsieh Undiagnosed new problem with uncertain prognosis? @ -No Drug Therapy requiring intensive monitoring for toxicity (Heparin, Nitro, Insulin, Cardizem)? @ -No Were any procedures done? @ -No Diagnosis/symptom? @ -sciatica Acute, or Chronic, or Acute on Chronic? @ -acute Uncomplicated (without systemic symptoms) or Complicated (systemic symptoms)? @ -uncomplicated Side effects of treatment? @ -No Exacerbation, Progression, or Severe Exacerbation? @ -No Poses a threat to life or bodily function? How? (Chest pain, [place], [place], pneumonia, PE, COPD, DKA, ARF, appy, cholecystitis, CVA, Diverticulitis, Homicidal, Suicidal, threat to staff... and all critical care pts) @ -No Disposition Clinical Impression: Contusion of lower leg Disposition: HOME SELF-CARE Condition: Stable Instructions (If sedation given, give patient instructions): Sciatica (ED) Additional Instructions: Please return to the emergency department for new or worsening symptoms. Is patient prescribed a controlled substance at d/c from ED?: No Referrals: None,Stated [Primary Care Provider] - 1-2 days
[2022-09-25] MEDS ORDERED: HYDROmorphone 1 MG/ML 1 ML SYRINGE IM STA (15:37)
[2022-09-25] MEDS ORDERED: LIDOCAINE 5% PATCH TOPICAL STA (15:38)
--- NOTE | 2022-09-25 15:54 | XR ---
EXAMINATION TYPE: XR Hip Complete LT DATE OF EXAM: 09/25/2022 CLINICAL HISTORY: pain TECHNIQUE: AP and frogleg views of the left hip are obtained. COMPARISON: None. FINDINGS: There is no acute fracture/dislocation evident. The joint space appears within normal li mits. The overlying soft tissue appears unremarkable. Bone island left ischium. IMPRESSION: 1. There is no acute fracture or dislocation.ICD 10 NO FRACTURE, INITIAL EVALUATION
[2022-09-25] MEDS ORDERED: ACETAMINOPHEN TAB 325 MG TAB PO STA (15:55)
[2022-09-25 17:44] VITALS: BP 131/75; PULSE 65; TEMP 98.3
== END 2022-09-25 17:45 | disposition home or self-care (01) ==
LOC: EC 14:00
DX: S80.12XA Contusion of left lower leg, initial encounter (principal); F41.9 Anxiety disorder, unspecified; F17.200 Nicotine dependence, unspecified, uncomplicated; Z79.899 Other long term (current) drug therapy; Z88.5 Allergy status to narcotic agent; Z88.6 Allergy status to analgesic agent; Z88.8 Allergy status to other drugs, medicaments and biological substances; Z91.018 Allergy to other foods; Z86.73 Personal history of transient ischemic attack (TIA), and cerebral infarction without residual deficits; W01.0XXA Fall on same level from slipping, tripping and stumbling without subsequent striking against object, initial encounter
CPT/HCPCS: 73502; 99283; 96372; J1170

== ENCOUNTER 2022-11-12 17:07 | Emergency (ER) | payer OTHER ==
[2022-11-12] MEDS ORDERED: LORazepam 2 MG/ML INJ IV STA ×2 (17:16)
[2022-11-12] MEDS ORDERED: MORPHINE SULFATE 2 MG/ML SYRINGE IVP STA ×2 (17:16)
[2022-11-12] MEDS ORDERED: ONDANSETRON 4 MG/2 ML VIAL IVP STA (17:16)
[2022-11-12] MEDS ORDERED: IPRATROPIUM-ALBUTEROL 3 ML NEB INHALATION STA (17:16)
[2022-11-12] MEDS ORDERED: SODIUM CHLORIDE 0.9% 1,000 ML IV STA (17:16)
--- NOTE | 2022-11-12 17:18 | ED ---
Syncope HPI - General Chief Complaint: Chest Pain Stated Complaint: chest pain /SOB Time Seen by Provider: 11/12/22 17:13 Source: patient, RN notes reviewed, old records reviewed Mode of arrival: wheelchair Limitations: no limitations - History of Present Illness Initial Comments: This is a 46-year-old female to the ER today. She presents today for evaluation of a syncopal event. The syncopal event occurred prior to presenting to the hospital today. It was witnessed by family patient was not responding and then went to the ground. Patient states she has passed on the past and does have some chest pain and shortness breath currently very anxious during these events. She does have current chest pain. History of multiple surgeries and believes she does have underlying history of heart disease a prior cardiac catheterization MD Complaint: loss of consciousness, felt faint, collapsed -: minutes(s) Prodromal Symptoms: lightheaded, chest pain, palpitations -: second(s) Witnessed: yes - by bystander Injuries Sustained Associated with Event: None Current Symptoms: chest pain, shortness of breath History: previous syncopal episode Context: standing up Treatments Prior to Arrival: none - Related Data Home Medications Medication Instructions Recorded Confirmed amLODIPine [Norvasc] 10 mg PO DAILY 09/16/20 05/15/22 Cyclobenzaprine [Flexeril] 10 mg PO BID PRN 08/16/21 05/15/22 traMADol HCL 50 mg PO TID PRN 01/14/22 05/15/22 Atogepant [Qulipta] 60 mg PO DAILY 05/12/22 05/15/22 Nitroglycerin Sl Tabs [Nitrostat] 0.4 mg SL Q5M PRN 05/13/22 05/15/22 Gabapentin [Neurontin] 400 mg PO TID 05/15/22 05/15/22 Allergies Allergy/AdvReac Type Severity Reaction Status Date / Time codeine Allergy Rash/Hives Verified 11/12/22 17:14 diphenhydramine Allergy Rash/Hives Verified 11/12/22 17:14 [From Benadryl] methylprednisolone Allergy Itching Verified 11/12/22 17:14 [From Solu-Medrol] onion Allergy Rash/Hives Verified 11/12/22 17:14 Review of Systems ROS Statement: Those systems with pertinent positive or pertinent negative responses have been documented in the HPI. ROS Other: All systems not noted in ROS Statement are negative. Past Medical History Past Medical History: CVA/TIA Additional Past Medical History / Comment(s): kidney stones Degenerative Disc D isease, Migraines and blacks out with sever migraines., hx TIA x2 ., CTS jenifer., Hx kidney stones. 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., hiatal hernia, constipation History of Any Multi-Drug Resistant Organisms: None Reported Past Surgical History: Appendectomy, Cholecystectomy, Heart Catheterization, Hysterectomy, Tubal Ligation Additional Past Surgical History / Comment(s): PAIN CLINIC PROCEDURES., EGD Past Anesthesia/Blood Transfusion Reactions: No Reported Reaction Past Psychological History: Anxiety Smoking Status: Current every day smoker Past Alcohol Use History: None Reported Past Drug Use History: None Reported - Past Family History Mother Family Medical History: No Reported History Father Family Medical History: No Reported History Additional Family Medical History / Comment(s): Aunt and uncle mother's side with CAD s/p CABG. General Exam Limitations: no limitations General appearance: alert, in no apparent distress Head exam: Present: atraumatic, normocephalic, normal inspection Eye exam: Present: normal appearance, PERRL, EOMI. Absent: scleral icterus, conjunctival injection, periorbital swelling ENT exam: Present: normal exam, mucous membranes moist Neck exam: Present: normal inspection. Absent: tenderness, meningismus, lymphadenopathy Respiratory exam: Present: normal lung sounds bilaterally. Absent: respiratory distress, wheezes, rales, rhonchi, stridor Cardiovascular Exam: Present: regular rate, normal rhythm, normal heart sounds. Absent: systolic murmur, diastolic murmur, rubs, gallop, clicks GI/Abdominal exam: Present: soft, normal bowel sounds. Absent: distended, tenderness, guarding, rebound, rigid Extremities exam: Present: normal inspection, full ROM, normal capillary refill. Absent: tenderness, pedal edema, joint swelling, calf tenderness Back exam: Present: normal inspection Neurological exam: Present: alert, oriented X3, CN II-XII intact Psychiatric exam: Present: normal affect, normal mood Skin exam: Present: warm, dry, intact, normal color. Absent: rash Course Vital Signs 11/12/22 11/12/22 11/12/22 17:10 17:27 17:28 Temperature Pulse Rate 105 H 106 H 106 H Respiratory 24 20 Rate Blood Pressure 153/90 122/87 O2 Sat by Pulse 97 100 Oximetry 11/12/22 11/12/22 11/12/22 17:37 18:05 19:37 Temperature 97.9 F Pulse Rate 90 77 72 Respiratory 18 16 Rate Blood Pressure 115/77 126/80 O2 Sat by Pulse 99 99 Oximetry 11/12/22 20:28 Temperature Pulse Rate 69 Respiratory 18 Rate Blood Pressure 113/78 O2 Sat by Pulse 99 Oximetry - Reevaluation(s) Reevaluation #1: 11/12/22 17:40 Medical record is reviewed Reevaluation #2: 11/12/22 17:40 Patient symptoms are improved Reevaluation #3: 11/12/22 20:20 No recurrent syncopal event here in the ER Reevaluation #4: 11/12/22 17:41 Was pt. sent in by a medical professional or institution (, PA, PUMP REBUILDER, urgent care, hospital, or fpc...) When possible be specific @ -no Did you speak to anyone other than the patient for history (EMS, parent, family, police, friend...)? What history was obtained from this source @ -no Did you review nursing and triage notes (agree or disagree)? Why? @ -agree Are old charts reviewed (outside hosp., previous admission, EMS record, old EKG, old radiological studies, urgent care reports/EKG's, fpc records)? Report findings @ -yes Differential Diagnosis (chest pain, altered mental status, abdominal pain women, abdominal pain men, vaginal bleeding, weakness, fever, dyspnea, syncope, headache, dizziness, GI bleed, back pain, seizure, CVA, palpatations, mental health, musculoskeletal)? @ -prior EKG interpreted by me (3pts min.). @ -yes X-rays interpreted by me (1pt min.). @ -yes CT interpreted by me (1pt min.). @ -no U/S interpreted by me (1pt. min.). @ -no What testing was considered but not performed or refused? (CT, X-rays, U/S, labs)? Why? @ -none What meds were considered but not given or refused? Why? @ -none Did you discuss the management of the patient with other professionals (professionals i.e. , PA, PUMP REBUILDER, lab, RT, psych nurse, director social service, iron carrier, teacher, resident medical officer, renal case manager)? Give summary @ -no Was smoking cessation discussed for >3mins.? @ -no Was critical care preformed (if so, how long)? @ -no Were there social determinants of health that impacted care today? How? (Homelessness, low income, unemployed, alcoholism, drug addiction, transportati on, low edu. Level, literacy, decrease access to med. care, [facility], rehab)? @ -none Was there de-escalation of care discussed even if they declined (Discuss DNR or withdrawal of care, Hospice)? DNR status @ -no What co-morbidities impacted this encounter? (DM, HTN, Smoking, COPD, CAD, Cancer, CVA, ARF, Chemo, Hep., AIDS, mental health diagnosis, sleep apnea, morbid obesity)? @ -none Was patient admitted / discharged? Hospital course, mention meds given and route, prescriptions, significant lab abnormalities, going to OR and other pertinent info. @ - 46 female syncopal event no acute syncope cause found. No headache chest pain shortness with abdominal pain patient feels well here in the ER is a little tearful during conversation she feels that she is very stressed out currently would like discharge home Discharge Undiagnosed new problem with uncertain prognosis? @ -no Drug Therapy requiring intensive monitoring for toxicity (Heparin, Nitro, Insulin, Cardizem)? @ -no Were any procedures done? @ -no Diagnosis/symptom? @ -Syncope Acute, or Chronic, or Acute on Chronic? @ -Acute Uncomplicated (without systemic symptoms) or Complicated (systemic symptoms)? @ -Complicated Side effects of treatment? @ -no Exacerbation, Progression, or Severe Exacerbation? @ -exacerbation Poses a threat to life or bodily function? How? (Chest pain, [place], [place], pneumonia, PE, COPD, DKA, ARF, appy, cholecystitis, CVA, Diverticulitis, Homicidal, Suicidal, threat to staff... and all critical care pts) @ -yes causes of syncope can be fatal Reevaluation #5: 11/12/22 17:40 Differential Syncope: Valvular disease, hypertrophic cardiomyopathy, pulmonary embolism, tamponade, tachycardia, bradycardia, RI, hypovolemia, hemorrhage, dissection, anemia, int racranial hemorrhage, seizure, hypoglycemia, carbon monoxide poisoning, this is not meant to be an all-inclusive list. Differential Chest Pain: Stable Angina, Unstable Angina, STEMI, NSTEMI Aortic Dissection, Pneumothorax, Musculoskeletal, Esophageal Spasm GERD, Cholecystitis, Pancreatitis, Zoster, this is not meant to be an all-inclusive list. EKG Findings - EKG Comments: EKG Findings:: EKG is sinus tachycardia 109 MS 129 QRS 73 QTC 369 - EKG Results: EKG: interpreted by ANGUS Medical Decision Making - Medical Decision Making 46 female syncopal event no acute syncope cause found. No headache chest pain shortness with abdominal pain patient feels well here in the ER is a little tearful during conversation she feels that she is very stressed out currently would like discharge home - Lab Data Result diagrams: 11/12/22 17:18 11/12/22 17:18 Lab Results 11/12/22 11/12/22 11/12/22 Range/Units 17:18 17:18 17:18 WBC 11.5 H (3.8-10.6) k/uL RBC 4.62 (3.80-5.40) m/uL Hgb 14.8 (11.4-16.0) gm/dL Hct 44.0 (34.0-46.0) % MCV 95.2 (80.0-100.0) fL MCH 32.1 (25.0-35.0) pg MCHC 33.7 (31.0-37.0) g/dL RDW 14.4 (11.5-15.5) % Plt Count 265 (150-450) k/uL MPV 9.7 Neutrophils % 58 % Lymphocytes % 31 % Monocytes % 4 % Eosinophils % 5 % Basophils % 1 % Neutrophils # 6.6 (1.3-7.7) k/uL Lymphocytes # 3.6 (1.0-4.8) k/uL Monocytes # 0.4 (0-1.0) k/uL Eosinophils # 0.6 (0-0.7) k/uL Basophils # 0.1 (0-0.2) k/uL PT 9.8 (9.0-12.0) sec INR 0.9 (<1.2) APTT 23.3 (22.0-30.0) sec D-Dimer 0.43 (<0.60) mg/L FEU Sodium 139 (137-145) mmol/L Potassium 4.2 (3.5-5.1) mmol/L Chloride 106 (98-107) mmol/L Carbon Dioxide 22 (22-30) mmol/L Anion Gap 11 mmol/L BUN 9 (7-17) mg/dL Creatinine 0.50 L (0.52-1.04) mg/dL Est GFR (CKD-EPI)AfAm >90 (>60 ml/min/1.73 sqM) Est GFR (CKD-EPI)NonAf >90 (>60 ml/min/1.73 sqM) Glucose 106 H (74-99) mg/dL Calcium 9.6 (8.4-10.2) mg/dL Magnesium 2.1 (1.6-2.3) mg/dL Total Bilirubin 0.6 (0.2-1.3) mg/dL AST 26 (14-36) U/L ALT 19 (4-34) U/L Alkaline Phosphatase 63 (38-126) U/L Troponin I (0.000-0.034) ng/mL NT-Pro-B Natriuret Pep 69 pg/mL Total Protein 7.7 (6.3-8.2) g/dL Albumin 4.4 (3.5-5.0) g/dL Lipase 190 (23-300) U/L 11/12/22 Range/Units 17:18 WBC (3.8-10.6) k/uL RBC (3.80-5.40) m/uL Hgb (11.4-16.0) gm/dL Hct (34.0-46.0) % MCV (80.0-100.0) fL MCH (25.0-35.0) pg MCHC (31.0-37.0) g/dL RDW (11.5-15.5) % Plt Count (150-450) k/uL MPV Neutrophils % % Lymphocytes % % Monocytes % % Eosinophils % % Basophils % % Neutrophils # (1.3-7.7) k/uL Lymphocytes # (1.0-4.8) k/uL Monocytes # (0-1.0) k/uL Eosinophils # (0-0.7) k/uL Basophils # (0-0.2) k/uL PT (9.0-12.0) sec INR (<1.2) APTT (22.0-30.0) sec D-Dimer (<0.60) mg/L FEU Sodium (137-145) mmol/L Potassium (3.5-5.1) mmol/L Chloride (98-107) mmol/L Carbon Dioxide (22-30) mmol/L Anion Gap mmol/L BUN (7-17) mg/dL Creatinine (0.52-1.04) mg/dL Est GFR (CKD-EPI)AfAm (>60 ml/min/1.73 sqM) Est GFR (CKD-EPI)NonAf (>60 ml/min/1.73 sqM) Glucose (74-99) mg/dL Calcium (8.4-10.2) mg/dL Magnesium (1.6-2.3) mg/dL Total Bilirubin (0.2-1.3) mg/dL AST (14-36) U/L ALT (4-34) U/L Alkaline Phosphatase (38-126) U/L Troponin I <0.012 (0.000-0.034) ng/mL NT-Pro-B Natriuret Pep pg/mL Total Protein (6.3-8.2) g/dL Albumin (3.5-5.0) g/dL Lipase (23-300) U/L - EKG Data -: EKG Interpreted by Id - Radiology Data Radiology results: report reviewed (Chest x-rays negative for acute disease), image reviewed Disposition Clinical Impression: Syncope Disposition: HOME SELF-CARE Condition: Good Instructions (If sedation given, give patient instructions): Syncope (ED) Is patient prescribed a controlled substance at d/c from ED?: No Referrals: None,Stated [Primary Care Provider] - 1-2 days Time of Disposition: 20:20
--- NOTE | 2022-11-12 17:35 | XR ---
EXAMINATION TYPE: XR chest 1V portable DATE OF EXAM: 11/12/2022 5:24 PM COMPARISON: Chest radiographs from 05/13/2022 TECHNIQUE: XR chest 1V portable Frontal view of the chest. CLINICAL INDICATION:Female, 46 years old with history of chest pain; FINDINGS: Lungs/Pleura: There is no evidence of pleural effusion, focal consolidation, or pneumothorax. Pulmonary vascularity: Unremarkable. Heart/mediastinum: Cardiomediastinal silhouette is unremarkable. Musculoskeletal: No acute osseous pathology. IMPRESSION: No acute cardiopulmonary disease/process.
[2022-11-12 17:41] LABS: Basophils # (A) 0.1 k/uL (0-0.2); Basophils % (A) 1 %; Eosinophils # (A) 0.6 k/uL (0-0.7); Eosinophils % (A) 5 %; HGB 14.8 gm/dL (11.4-16.0); Lymphocytes # (A) 3.6 k/uL (1.0-4.8); Lymphocytes % (A) 31 %; MCH 32.1 pg (25.0-35.0); MCHC 33.7 g/dL (31.0-37.0); MCV 95.2 fL (80.0-100.0); Mean Platelet Volume 9.7; Monocytes # (A) 0.4 k/uL (0-1.0); Monocytes % (A) 4 %; Neutrophils # (A) 6.6 k/uL (1.3-7.7); Neutrophils % (A) 58 %; Platelet Count 265 k/uL (150-450); RBC 4.62 m/uL (3.80-5.40); RDW 14.4 % (11.5-15.5); WBC 11.5 k/uL (3.8-10.6)
[2022-11-12 18:00] LABS: ALT 19 U/L (4-34); AST 26 U/L (14-36); African American GFR (CKD) >90 (>60 ml/min/1.73 sqM); Albumin 4.4 g/dL (3.5-5.0); Alkaline Phosphatase 63 U/L (38-126); Anion Gap 11 mmol/L; Blood Urea Nitrogen 9 mg/dL (7-17); Calcium 9.6 mg/dL (8.4-10.2); Carbon Dioxide 22 mmol/L (22-30); Chloride 106 mmol/L (98-107); Glucose 106 mg/dL (74-99); Lipase 190 U/L (23-300); Magnesium 2.1 mg/dL (1.6-2.3); Non-African American GFR(CKD) >90 (>60 ml/min/1.73 sqM); Potassium 4.2 mmol/L (3.5-5.1); Sodium 139 mmol/L (137-145); Total Bilirubin 0.6 mg/dL (0.2-1.3); Total Protein 7.7 g/dL (6.3-8.2)
[2022-11-12 18:01] LABS: INR 0.9 (<1.2); Partial Thromboplastin Time 23.3 sec (22.0-30.0); Prothrombin Time 9.8 sec (9.0-12.0)
[2022-11-12 18:09] LABS: NT-Pro-B-Type Natriuretic Pept 69 pg/mL
[2022-11-12 19:40] VITALS: TEMP 97.9
[2022-11-12 20:30] VITALS: BP 113/78; PULSE 69; RESP 18
== END 2022-11-12 20:31 | disposition home or self-care (01) ==
LOC: EC 17:07
DX: R55 Syncope and collapse (principal); F17.200 Nicotine dependence, unspecified, uncomplicated; Z87.442 Personal history of urinary calculi; Z88.5 Allergy status to narcotic agent; Z91.018 Allergy to other foods; Z88.8 Allergy status to other drugs, medicaments and biological substances; Z90.49 Acquired absence of other specified parts of digestive tract; Z86.59 Personal history of other mental and behavioral disorders
CPT/HCPCS: 36415; 94640; 93005; 85379; 83880; 80053; 83690; 83735; 84484; 85025; 85610; 85730; 71045; 99285; 96374; 96375 ×2; 96376; 96361; J2060; J2405; J2270

== ENCOUNTER → 2023-01-16 | Outpatient (CLI) | payer OTHER ==
[2023-01-16 19:28] LABS: Blood Urea Nitrogen 5.9 mg/dL (9.0-27.0); LDL Cholesterol,Calculated 128.1 mg/dL (0.0-131.0)
== END | disposition home or self-care (01) ==
LOC: LABWHC1 14:25
PROVIDERS: ATTEND Psychiatry & Neurology Pain Medicine
DX: Z01.812 Encounter for preprocedural laboratory examination (principal); G45.9 Transient cerebral ischemic attack, unspecified; R41.82 Altered mental status, unspecified
CPT/HCPCS: 36415; 80061; 82565; 84520

== ENCOUNTER 2023-04-14 21:10 | Emergency (ER) | payer OTHER ==
[2023-04-14] MEDS ORDERED: HYDROmorphone 1 MG/ML 1 ML SYRINGE IVP STA (21:36)
[2023-04-14] MEDS ORDERED: KETOROLAC 15 MG/ML 1 ML VIAL IVP STA (21:36)
[2023-04-14] MEDS ORDERED: SODIUM CHLORIDE 0.9% 1,000 ML IV STA (21:36)
[2023-04-14 21:38] VITALS: RESP 18
[2023-04-14] MEDS ORDERED: ONDANSETRON 4 MG/2 ML VIAL IVP STA (21:42)
--- NOTE | 2023-04-14 21:42 | ED ---
General Adult HPI - General Chief complaint: Abdominal Pain Stated complaint: Kidney stones Time Seen by Provider: 04/14/23 21:23 Source: patient, family Mode of arrival: ambulatory Limitations: no limitations - History of Present Illness Initial comments: Dictation was produced using the grafter dictation software. please excuse any grammatical, word or spelling errors. Chief Complaint: 47-year-old female with a history of kidney stones presents to the ER for one day of right-sided flank pain History of Present Illness: 47-year-old female past medical history of kidney stones. States that she's had kidney stone last time several months ago was states for a day she is had acute onset right-sided flank pain. It is to the groin. States it feels like a typical kidney stone pain. Denies any obvious bleeding in the urine. She tried taking her home analgesic medications with minimal improvement. The ROS documented in this emergency department record has been reviewed and confirmed by me. Those systems with pertinent positive or negative responses have been documented in the HPI. All other systems are other negative and/or noncontributory. - Related Data Home Medications Medication Instructions Recorded Confirmed amLODIPine [Norvasc] 10 mg PO DAILY 09/16/20 05/15/22 Cyclobenzaprine [Flexeril] 10 mg PO BID PRN 08/16/21 05/15/22 traMADol HCL 50 mg PO TID PRN 01/14/22 05/15/22 Atogepant [Qulipta] 60 mg PO DAILY 05/12/22 05/15/22 Nitroglycerin Sl Tabs [Nitrostat] 0.4 mg SL Q5M PRN 05/13/22 05/15/22 Gabapentin [Neurontin] 400 mg PO TID 05/15/22 05/15/22 Allergies Allergy/AdvReac Type Severity Reaction Status Date / Time codeine Allergy Rash/Hives Verified 04/14/23 21:21 diphenhydramine Allergy Rash/Hives Verified 04/14/23 21:21 [From Benadryl] methylprednisolone Allergy Itching Verified 04/14/23 21:21 [From Solu-Medrol] onion Allergy Rash/Hives Verified 04/14/23 21:21 Review of Systems ROS Statement: Those systems with pertinent positive or pertinent negative responses have been documented in the HPI. ROS Other: All systems not noted in ROS Statement are negative. Past Medical History Past Medical History: CVA/TIA Additional Past Medical History / Comment(s): kidney stones Degenerative Disc Disease, Migraines and blacks out with sever migraines., hx TIA x2 ., CTS jenifer., Hx kidney stones. 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., hiatal hernia, constipation History of Any Multi-Drug Resistant Organisms: None Reported Past Surgical History: Appendectomy, Cholecystectomy, Heart Catheterization, Hysterectomy, Tubal Ligation Additional Past Surgical History / Comment(s): PAIN CLINIC PROCEDURES., EGD Past Anesthesia/Blood Transfusion Reactions: No Reported Reaction Past Psychological History: Anxiety Smoking Status: Current every day smoker Past Alcohol Use History: None Reported Past Drug Use History: None Reported - Past Family History Mother Family Medical History: No Reported History Father Family Medical History: No Reported History Additional Family Medical History / Comment(s): Aunt and uncle mother's side with CAD s/p CABG. General Exam - General Exam Comments Initial Comments: PHYSICAL EXAM: General Impression: Alert and oriented x3, distress secondary to pain HEENT: Normocephalic atraumatic, extra-ocular movements intact, pupils equal and reactive to light bilaterally, mucous membranes moist. Cardiovascular: Heart regular rate and rhythm Chest: Able to complete full sentences, no retractions, no tachypnea Abdomen: abdomen soft, non-tender, non-distended, no organomegaly Musculoskeletal: Pulses present and equal in all extremities, no peripheral edema, mild CVA tenderness to the right Motor: no focal deficits noted Neurological: CN II-XII grossly intact, no focal motor or sensory deficits noted Skin: Intact with no visualized rashes Psych: Normal affect and mood Limitations: no limitations Course Vital Signs 04/14/23 04/14/23 21:16 23:40 Temperature 98.4 F Pulse Rate 95 83 Respiratory 18 18 Rate Blood Pressure 129/77 132/82 O2 Sat by Pulse 97 95 Oximetry Medical Decision Making - Medical Decision Making Was pt. sent in by a medical professional or institution (, PA, SALES FORCE ADMINISTRATOR, urgent care, hospital, or assisted...) When possible be specific @ -No Did you speak to anyone other than the patient for history (EMS, parent, family, police, friend...)? What history was obtained from this source @ -No Did you review nursing and triage notes (agree or disagree)? Why? @ -I reviewed and agree with nursing and triage notes Were old charts reviewed (outside hosp., previous admission, EMS record, old EKG, old radiological studies, urgent care reports/EKG's, assisted records)? Report findings @ -No old charts were reviewed Differential Diagnosis (chest pain, altered mental status, abdominal pain women, abdominal pain men, vaginal bleeding, musculoskeletal, weakness, fever, dyspnea, syncope, headache, dizziness, GI bleed, back pain, seizure, CVA, palpatations, mental health)? @ -Differential Abdominal Pain Women: Appendicitis, Cholecystitis, diverticulosis, ischemic bowel, pancreatitis, hepatitis, UTI, gastroenteritis, AAA, incarcerated hernia, bowel obstruction, constipation, inflammatory bowel, hepatitis, peptic ulcer disease, splenic infarction, perforated viscus, vulvitis, ovarian torsion, PID, kidney stone, placenta abruption, this is not meant to be an all-inclusive list EKG interpreted by me (3pts min.). @ -None done X-rays interpreted by me (1pt min.). @ -None done CT interpreted by me (1pt min.). @ -None done U/S interpreted by me (1pt. min.). @ -Ultrasound shows no hydronephrosis What testing was considered but not performed or refused? (CT, X-rays, U/S, labs)? Why? @ -None What meds were considered but not given or refused? Why? @ -None Did you discuss the management of the patient with other professionals (professionals i.e. , PA, SALES FORCE ADMINISTRATOR, lab, RT, psych nurse, social insurance administrator, casino floor person, teacher, recruitment officer, supervisor case loading)? Give summary @ -No Was smoking cessation discussed for >3mins.? @ -No Was critical care preformed (if so, how long)? @ -No Were there social determinants of health that impacted care today? How? (Homelessness, low income, unemployed, alcoholism, drug addiction, transportation, low edu. Level, literacy, decrease access to med. care, halfway, rehab)? @ -No Was there de-escalation of care discussed even if they declined (Discuss DNR or withdrawal of care, Hospice)? DNR status @ -No What co-morbidities impacted this encounter? (DM, HTN, Smoking, COPD, CAD, Cancer, CVA, ARF, Chemo, Hep., AIDS, mental health diagnosis, sleep apnea, morbid obesity)? @ -None Was patient admitted / discharged? Hospital course, mention meds given and route, prescriptions, significant lab abnormalities, going to OR and other pertinent info. @ -47-year-old female past medical history of nephrolithiasis presents emergency department with flank pain. States her symptoms feel exactly like her usual kidney stone pain. CBC, metabolic panel is unremarkable. Urinalysis is negative. No hematuria. Ultrasound is negative for hydronephrosis. Patient clinically presents with suspicion of symptomatic nephrolithiasis. Likely not of the obstructing type. Patient evaluated bedside with condition. Patient discharged advised follow-up with urologist. Undiagnosed new problem with uncertain prognosis? @ -No Drug Therapy requiring intensive monitoring for toxicity (Heparin, Nitro, Insulin, Cardizem)? @ -No Were any procedures done? @ -No Diagnosis/symptom? Acute, or Chronic, or Acute on Chronic? Uncomplicated (without systemic symptoms) or Complicated (systemic symptoms)? @ -Flank pain Side effects of treatment? @ -No Exacerbation, Progression, or Severe Exacerbation? @ -No Poses a threat to life or bodily function? How? (Chest pain, [place], [place], pneumonia, PE, COPD, DKA, ARF, appy, cholecystitis, CVA, Diverticulitis, Homicidal, Suicidal, threat to staff... and all critical care pts) @ -No - Lab Data Result diagrams: 04/14/23 22:30 04/14/23 22:30 Lab Results 04/14/23 04/14/23 04/14/23 Range/Units 22:30 22:30 22:30 WBC 10.4 (3.8-10.6) k/uL RBC 4.43 (3.80-5.40) m/uL Hgb 15.0 (11.4-16.0) gm/dL Hct 43.1 (34.0-46.0) % MCV 97.2 (80.0-100.0) fL MCH 33.9 (25.0-35.0) pg MCHC 34.9 (31.0-37.0) g/dL RDW 13.3 (11.5-15.5) % Plt Count 270 (150-450) k/uL MPV 10.3 Neutrophils % 59 % Lymphocytes % 28 % Monocytes % 6 % Eosinophils % 5 % Basophils % 1 % Neutrophils # 6.1 (1.3-7.7) k/uL Lymphocytes # 2.9 (1.0-4.8) k/uL Monocytes # 0.6 (0-1.0) k/uL Eosinophils # 0.5 (0-0.7) k/uL Basophils # 0.1 (0-0.2) k/uL Sodium 137 (137-145) mmol/L Potassium 5.9 H (3.5-5.1) mmol/L Chloride 108 H (98-107) mmol/L Carbon Dioxide 23 (22-30) mmol/L Anion Gap 6 mmol/L BUN 14 (7-17) mg/dL Creatinine 0.44 L (0.52-1.04) mg/dL Est GFR (CKD-EPI)AfAm >90 (>60 ml/min/1.73 sqM) Est GFR (CKD-EPI)NonAf >90 (>60 ml/min/1.73 sqM) Glucose 98 (74-99) mg/dL Calcium 9.6 (8.4-10.2) mg/dL Total Bilirubin 1.1 (0.2-1.3) mg/dL AST 41 H (14-36) U/L ALT 21 (4-34) U/L Alkaline Phosphatase 54 (38-126) U/L Total Protein 8.2 (6.3-8.2) g/dL Albumin 4.7 (3.5-5.0) g/dL Urine Color Light Yellow Urine Appearance Clear (Clear) Urine pH 6.0 (5.0-8.0) Ur Specific [place] 1.018 (1.001-1.035) Urine Protein Negative (Negative) Urine Glucose (UA) Negative (Negative) Urine Ketones Negative (Negative) Urine Blood Negative (Negative) Urine Nitrite Negative (Negative) Urine Bilirubin Negative (Negative) Urine Urobilinogen <2.0 (<2.0) mg/dL Ur Leukocyte Esterase Negative (Negative) Disposition Clinical Impression: Flank pain Disposition: HOME SELF-CARE Condition: Good Instructions (If sedation given, give patient instructions): Kidney Stones (ED) Is patient prescribed a controlled substance at d/c from ED?: No Referrals: None,Stated [Primary Care Provider] - 1-2 days Time of Disposition: 00:38
[2023-04-14 22:48] LABS: Appearance,Urine Clear (Clear); Bilirubin,Urine Negative (Negative); Blood,Urine Negative (Negative); Color,Urine Light Yellow; Glucose,Urine (UA) Negative (Negative); Ketones,Urine Negative (Negative); Leukocyte Esterase,Urine Negative (Negative); Nitrite,Urine Negative (Negative); Protein,Urine Negative (Negative); Specific Gravity,Urine 1.018 (1.001-1.035); Urobilinogen,Urine <2.0 mg/dL (<2.0)
[2023-04-14 22:56] LABS: Basophils # (A) 0.1 k/uL (0-0.2); Basophils % (A) 1 %; Eosinophils # (A) 0.5 k/uL (0-0.7); Eosinophils % (A) 5 %; HCT 43.1 % (34.0-46.0); Lymphocytes # (A) 2.9 k/uL (1.0-4.8); Lymphocytes % (A) 28 %; MCH 33.9 pg (25.0-35.0); MCHC 34.9 g/dL (31.0-37.0); MCV 97.2 fL (80.0-100.0); Mean Platelet Volume 10.3; Monocytes # (A) 0.6 k/uL (0-1.0); Monocytes % (A) 6 %; Neutrophils # (A) 6.1 k/uL (1.3-7.7); Neutrophils % (A) 59 %; Platelet Count 270 k/uL (150-450); RBC 4.43 m/uL (3.80-5.40); RDW 13.3 % (11.5-15.5); WBC 10.4 k/uL (3.8-10.6)
[2023-04-14 23:07] LABS: ALT 21 U/L (4-34); AST 41 U/L (14-36); African American GFR (CKD) >90 (>60 ml/min/1.73 sqM); Albumin 4.7 g/dL (3.5-5.0); Alkaline Phosphatase 54 U/L (38-126); Anion Gap 6 mmol/L; Blood Urea Nitrogen 14 mg/dL (7-17); Calcium 9.6 mg/dL (8.4-10.2); Carbon Dioxide 23 mmol/L (22-30); Chloride 108 mmol/L (98-107); Glucose 98 mg/dL (74-99); Non-African American GFR(CKD) >90 (>60 ml/min/1.73 sqM); Sodium 137 mmol/L (137-145); Total Bilirubin 1.1 mg/dL (0.2-1.3); Total Protein 8.2 g/dL (6.3-8.2)
[2023-04-14 23:08] LABS: Potassium 5.9 mmol/L (3.5-5.1)
--- NOTE | 2023-04-14 23:39 | US ---
EXAM: US Retroperitoneal Limited, Renal CLINICAL HISTORY: ITS.REASON US Reason: flank pain TECHNIQUE: Real-time limited ultrasound of the retroperitoneum with image documentation. COMPARISON: No relevant prior studies available. FINDINGS: Right kidney: Right kidney measures 10.8 cm. No hydronephrosis, mass, cyst, or stone. Left kidney: Left kidney measures 11.7 cm. No hydronephrosis, mass, or stone. Simple 1.8 cm anechoic structure at the renal hilum could represent pelviectasis or a parapelvic cyst. Bladder: Normal appearance of the urinary bladder. Left ureteral jet visualized. Right ureteral jet not visualized during the course of exam. IMPRESSION: No acute or significant findings.
[2023-04-15 01:05] VITALS: BP 130/78; PULSE 88; TEMP 98.2
== END 2023-04-15 00:46 | disposition home or self-care (01) ==
LOC: EC 21:10
DX: R10.9 Unspecified abdominal pain (principal); F41.9 Anxiety disorder, unspecified; F17.200 Nicotine dependence, unspecified, uncomplicated; Z79.899 Other long term (current) drug therapy; Z88.8 Allergy status to other drugs, medicaments and biological substances; Z88.5 Allergy status to narcotic agent; Z91.018 Allergy to other foods; Z90.49 Acquired absence of other specified parts of digestive tract
CPT/HCPCS: 36415; 80053; 85025; 81003; 76770; 99284; 96374; 96375 ×2; J2405; J1170; J1885

== ENCOUNTER 2023-07-04 12:43 | Emergency (ER) | payer OTHER ==
--- NOTE | 2023-07-04 12:57 | ED ---
General Adult HPI - General Chief complaint: Syncope Stated complaint: syncope Time Seen by Provider: 07/04/23 12:55 Source: patient, EMS, RN notes reviewed Mode of arrival: EMS Limitations: no limitations - History of Present Illness Initial comments: Patient is a 47-year-old female with a history of coronary artery disease and chronic pain presents to the via EMS for chief complaint of syncope. Patient states that this morning she was playing with her grandson when she began having feelings of dizziness described as a room spinning sensation patient to lightheadedness, shortness of breath and fatigue. Patient states that she continued bending down due to feelings of going to pass out. Patient states that she underwent cardiac catheterization approximately 3 years ago where stents were placed in the coronary arteries. Patient states that she has not seen a auto customize painter in over a year. She endorses chest pressure, nausea, states that she has as needed nitro at home, denies current blood thinner use or anti- platelet medication. denies palpitations, headache, abdominal pain, vomiting. chest pressure, nausea. - Related Data Home Medications Medication Instructions Recorded Confirmed amLODIPine [Norvasc] 10 mg PO DAILY 09/16/20 07/04/23 Nitroglycerin Sl Tabs [Nitrostat] 0.4 mg SL Q5M PRN 05/13/22 07/04/23 Gabapentin [Neurontin] 400 mg PO BID 05/15/22 07/04/23 Butalb/APAP/Caff 50-325-40Mg 1 tab PO BID PRN MDD 2 tabs 07/04/23 07/04/23 [Fioricet 50-325-40] HYDROcodone/APAP 7.5-325MG [[place] 1 tab PO Q8H PRN 07/04/23 07/04/23 7.5-325] Allergies Allergy/AdvReac Type Severity Reaction Status Date / Time codeine Allergy Rash/Hives Verified 07/04/23 14:56 diphenhydramine Allergy Rash/Hives Verified 07/04/23 14:56 [From Benadryl] methylprednisolone Allergy Itching Verified 07/04/23 14:56 [From Solu-Medrol] onion Allergy Rash/Hives Verified 07/04/23 14:56 Review of Systems ROS Statement: Those systems with pertinent positive or pertinent negative responses have been documented in the HPI. ROS Other: All systems not noted in ROS Statement are negative. Past Medical History Past Medical History: CVA/TIA Additional Past Medical History / Comment(s): kidney stones Degenerative Disc Di sease, Migraines and blacks out with sever migraines., hx TIA x2 ., CTS jenifer., Hx kidney stones. 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., hiatal hernia, constipation History of Any Multi-Drug Resistant Organisms: None Reported Past Surgical History: Appendectomy, Cholecystectomy, Heart Catheterization, Hysterectomy, Tubal Ligation Additional Past Surgical History / Comment(s): PAIN CLINIC PROCEDURES., EGD Past Anesthesia/Blood Transfusion Reactions: No Reported Reaction Past Psychological History: Anxiety Smoking Status: Current every day smoker Past Alcohol Use History: None Reported Past Drug Use History: None Reported - Past Family History Mother Family Medical History: No Reported History Father Family Medical History: No Reported History Additional Family Medical History / Comment(s): Aunt and uncle mother's side with CAD s/p CABG. General Exam Limitations: no limitations General appearance: alert, in no apparent distress Head exam: Present: atraumatic, normocephalic, normal inspection Eye exam: Present: normal appearance, PERRL, EOMI. Absent: scleral icterus, conjunctival injection, periorbital swelling ENT exam: Present: normal exam, mucous membranes moist Neck exam: Present: normal inspection. Absent: tenderness, meningismus, lymphadenopathy Respiratory exam: Present: normal lung sounds bilaterally. Absent: respiratory distress, wheezes, rales, rhonchi, stridor Cardiovascular Exam: Present: regular rate, normal rhythm, normal heart sounds. Absent: systolic murmur, diastolic murmur, rubs, gallop, clicks GI/Abdominal exam: Present: soft, normal bowel sounds. Absent: distended, tenderness, guarding, rebound, rigid Extremities exam: Present: normal inspection, full ROM, normal capillary refill. Absent: tenderness, pedal edema, joint swelling, calf tenderness Back exam: Present: normal inspection Neurological exam: Present: alert, oriented X3, CN II-XII intact Psychiatric exam: Present: normal affect, normal mood Skin exam: Present: warm, dry, intact, normal color. Absent: rash Course Vital Signs 07/04/23 07/04/23 12:46 14:50 Temperature 98 F Pulse Rate 70 66 Respiratory 16 18 Rate Blood Pressure 137/83 143/82 O2 Sat by Pulse 98 99 Oximetry Medical Decision Making - Medical Decision Making Was pt. sent in by a medical professional or institution (KATRINA Gramajo, DECK ENGINEER, urgent care, hospital, or alf...) When possible be specific @ -No Did you speak to anyone other than the patient for history (EMS, parent, family, police, friend...)? What history was obtained from this source @ -No Did you review nursing and triage notes (agree or disagree)? Why? @ -I reviewed and agree with nursing and triage notes Were old charts reviewed (outside hosp., previous admission, EMS record, old EKG, old radiological studies, urgent care reports/EKG's, alf records)? Report findings @ -Previous emergency department visit reviewed from November 2022. Patient presented for syncopal episode, but left AGAINST MEDICAL ADVICE. Differential Diagnosis (chest pain, altered mental status, abdominal pain women, abdominal pain men, vaginal bleeding, weakness, fever, dyspnea, syncope, headache, dizziness, GI bleed, back pain, seizure, CVA, palpatations, mental health, musculoskeletal)? @ -Differential Syncope: Valvular disease, hypertrophic cardiomyopathy, pulmonary embolism, tamponade, tachycardia, bradycardia, ND, hypovolemia, hemorrhage, dissection, anemia, intracranial hemorrhage, seizure, hypoglycemia, carbon monoxide poisoning, this is not meant to be an all-inclusive list. polypharmacy, electrolye abnormalities, arrythmia. EKG interpreted by me (3pts min.). @ -As above X-rays interpreted by me (1pt min.). @ -Chest x-ray no acute cardiopulmonary process. CT interpreted by me (1pt min.). @ -None done U/S interpreted by me (1pt. min.). @ -None done What testing was considered but not performed or refused? (CT, X-rays, U/S, labs)? Why? @ -None What meds were considered but not given or refused? Why? @ -None Did you discuss the management of the patient with other professionals (professionals i.e. KATRINA Gramajo, DECK ENGINEER, lab, RT, psych nurse, social media marketing analyst, molder automobile carpets, teacher, senior major gifts officer, case work aide)? Give summary @ -No Was smoking cessation discussed for >3mins.? @ -No Was critical care preformed (if so, how long)? @ -No Were there social determinants of health that impacted care today? How? (Homelessness, low income, unemployed, alcoholism, drug addiction, transportation, low edu. Level, literacy, decrease access to med. care, care home, rehab)? @ -No Was there de-escalation of care discussed even if they declined (Discuss DNR or withdrawal of care, Hospice)? DNR status @ -No What co-morbidities impacted this encounter? (DM, HTN, Smoking, COPD, CAD, Cancer, CVA, ARF, Chemo, Hep., AIDS, mental health diagnosis, sleep apnea, morbid obesity)? @ -CAD, chronic pain Was patient admitted / discharged? Hospital course, mention meds given and route, prescriptions, significant lab abnormalities, going to OR and other pertinent info. @ -47-year-old female with complaint of syncope. Patient denies hitting her head during time of syncope, CT brain deferred. Signs of infection, electrolyte abnormalities. No elevation in patient's troponin or BNP. Reevaluation of patient, states that she is feeling better with complaints of a headache that she has had for evaluation of syncope, patient declines. Patient expresses understanding to follow-up with primary care provider within the next 1 to 3 days for evaluation of syncopal episode that she experienced today. Patient is in understanding. Patient given Tylenol and Toradol for headache relief. Emergency department. Discussed with Dr. Colón. Patient is stable for discharge. Undiagnosed new problem with uncertain prognosis? @ -No Drug Therapy requiring intensive monitoring for toxicity (Heparin, Nitro, Insulin, Cardizem)? @ -No Were any procedures done? @ -No Diagnosis/symptom? @ -syncope without injury Acute, or Chronic, or Acute on Chronic? @ -acute Uncomplicated (without systemic symptoms) or Complicated (systemic symptoms)? @ -uncomplicated Side effects of treatment? @ -No Exacerbation, Progression, or Severe Exacerbation? @ -No Poses a threat to life or bodily function? How? (Chest pain, USA, ND, pneumonia, PE, COPD, DKA, ARF, appy, cholecystitis, CVA, Diverticulitis, Homicidal, Suicidal, threat to staff... and all critical care pts) @ -No - Lab Data Result diagrams: 07/04/23 13:39 07/04/23 14:02 Lab Results 07/04/23 07/04/23 07/04/23 Range/Units 13:39 13:39 13:39 WBC 9.9 (3.8-10.6) k/uL RBC 4.53 (3.80-5.40) m/uL Hgb 15.0 (11.4-16.0) gm/dL Hct 44.5 (34.0-46.0) % MCV 98.4 (80.0-100.0) fL MCH 33.1 (25.0-35.0) pg MCHC 33.6 (31.0-37.0) g/dL RDW 13.9 (11.5-15.5) % Plt Count 174 (150-450) k/uL MPV 11.1 Neutrophils % 69 % Lymphocytes % 21 % Monocytes % 3 % Eosinophils % 4 % Basophils % 1 % Neutrophils # 6.9 (1.3-7.7) k/uL Lymphocytes # 2.1 (1.0-4.8) k/uL Monocytes # 0.3 (0-1.0) k/uL Eosinophils # 0.4 (0-0.7) k/uL Basophils # 0.1 (0-0.2) k/uL PT 10.6 (10.0-12.5) sec INR 1.0 (<1.2) APTT 21.6 L (22.0-30.0) sec D-Dimer 0.40 (<0.60) mg/L FEU Sodium (137-145) mmol/L Potassium (3.5-5.1) mmol/L Chloride (98-107) mmol/L Carbon Dioxide (22-30) mmol/L Anion Gap mmol/L BUN (7-17) mg/dL Creatinine (0.52-1.04) mg/dL Est GFR (CKD-EPI)AfAm (>60 ml/min/1.73 sqM) Est GFR (CKD-EPI)NonAf (>60 ml/min/1.73 sqM) Glucose (74-99) mg/dL Calcium (8.4-10.2) mg/dL Magnesium (1.6-2.3) mg/dL Total Bilirubin (0.2-1.3) mg/dL AST (14-36) U/L ALT (4-34) U/L Alkaline Phosphatase (38-126) U/L Troponin I (0.000-0.034) ng/mL NT-Pro-B Natriuret Pep pg/mL Total Protein (6.3-8.2) g/dL Albumin (3.5-5.0) g/dL Urine Color Colorless Urine Appearance Clear (Clear) Urine pH 6.0 (5.0-8.0) Ur Specific [place] 1.003 (1.001-1.035) Urine Protein Negative (Negative) Urine Glucose (UA) Negative (Negative) Urine Ketones Negative (Negative) Urine Blood Negative (Negative) Urine Nitrite Negative (Negative) Urine Bilirubin Negative (Negative) Urine Urobilinogen <2.0 (<2.0) mg/dL Ur Leukocyte Esterase Negative (Negative) Urine Opiates Screen (NotDetected) Ur Oxycodone Screen (NotDetected) Urine Methadone Screen (NotDetected) Ur Barbiturates Screen (NotDetected) U Tricyclic Antidepress (NotDetected) Ur Phencyclidine Scrn (NotDetected) Ur Amphetamines Screen (NotDetected) U Methamphetamines Scrn (NotDetected) U Benzodiazepines Scrn (NotDetected) Urine Cocaine Screen (NotDetected) U Marijuana (THC) Screen (NotDetected) 07/04/23 07/04/23 07/04/23 Range/Units 13:39 14:02 14:02 WBC (3.8-10.6) k/uL RBC (3.80-5.40) m/uL Hgb (11.4-16.0) gm/dL Hct (34.0-46.0) % MCV (80.0-100.0) fL MCH (25.0-35.0) pg MCHC (31.0-37.0) g/dL RDW (11.5-15.5) % Plt Count (150-450) k/uL MPV Neutrophils % % Lymphocytes % % Monocytes % % Eosinophils % % Basophils % % Neutrophils # (1.3-7.7) k/uL Lymphocytes # (1.0-4.8) k/uL Monocytes # (0-1.0) k/uL Eosinophils # (0-0.7) k/uL Basophils # (0-0.2) k/uL PT (10.0-12.5) sec INR (<1.2) APTT (22.0-30.0) sec D-Dimer (<0.60) mg/L FEU Sodium 140 (137-145) mmol/L Potassium 4.2 (3.5-5.1) mmol/L Chloride 114 H (98-107) mmol/L Carbon Dioxide 21 L (22-30) mmol/L Anion Gap 5 mmol/L BUN 5 L (7-17) mg/dL Creatinine 0.37 L (0.52-1.04) mg/dL Est GFR (CKD-EPI)AfAm >90 (>60 ml/min/1.73 sqM) Est GFR (CKD-EPI)NonAf >90 (>60 ml/min/1.73 sqM) Glucose 96 (74-99) mg/dL Calcium 9.1 (8.4-10.2) mg/dL Magnesium 2.0 (1.6-2.3) mg/dL Total Bilirubin 0.4 (0.2-1.3) mg/dL AST 20 (14-36) U/L ALT 16 (4-34) U/L Alkaline Phosphatase 66 (38-126) U/L Troponin I <0.012 (0.000-0.034) ng/mL NT-Pro-B Natriuret Pep 32 pg/mL Total Protein 6.5 (6.3-8.2) g/dL Albumin 3.8 (3.5-5.0) g/dL Urine Color Urine Appearance (Clear) Urine pH (5.0-8.0) Ur Specific [place] (1.001-1.035) Urine Protein (Negative) Urine Glucose (UA) (Negative) Urine Ketones (Negative) Urine Blood (Negative) Urine Nitrite (Negative) Urine Bilirubin (Negative) Urine Urobilinogen (<2.0) mg/dL Ur Leukocyte Esterase (Negative) Urine Opiates Screen Detected H (NotDetected) Ur Oxycodone Screen Not Detected (NotDetected) Urine Methadone Screen Not Detected (NotDetected) Ur Barbiturates Screen Detected H (NotDetected) U Tricyclic Antidepress Not Detected (NotDetected) Ur Phencyclidine Scrn Not Detected (NotDetected) Ur Amphetamines Screen Not Detected (NotDetected) U Methamphetamines Scrn Not Detected (NotDetected) U Benzodiazepines Scrn Not Detected (NotDetected) Urine Cocaine Screen Not Detected (NotDetected) U Marijuana (THC) Screen Not Detected (NotDetected) Disposition Clinical Impression: Vasovagal syncope Narrative: Please return to the Emergency Department if symptoms worsen or any other concerns. Follow up with your PCP within the next 1-3 days for further evaluation. Disposition: HOME SELF-CARE Condition: Good Instructions (If sedation given, give patient instructions): Syncope (ED) Is patient prescribed a controlled substance at d/c from ED?: No Referrals: None,Stated [Primary Care Provider] - 1-2 days Time of Disposition: 15:10
[2023-07-04 13:07] VITALS: TEMP 98
[2023-07-04 13:53] LABS: Basophils # (A) 0.1 k/uL (0-0.2); Basophils % (A) 1 %; Eosinophils # (A) 0.4 k/uL (0-0.7); Eosinophils % (A) 4 %; HCT 44.5 % (34.0-46.0); Lymphocytes # (A) 2.1 k/uL (1.0-4.8); Lymphocytes % (A) 21 %; MCH 33.1 pg (25.0-35.0); MCHC 33.6 g/dL (31.0-37.0); MCV 98.4 fL (80.0-100.0); Mean Platelet Volume 11.1; Monocytes # (A) 0.3 k/uL (0-1.0); Monocytes % (A) 3 %; Neutrophils # (A) 6.9 k/uL (1.3-7.7); Neutrophils % (A) 69 %; Platelet Count 174 k/uL (150-450); RBC 4.53 m/uL (3.80-5.40); RDW 13.9 % (11.5-15.5); WBC 9.9 k/uL (3.8-10.6)
--- NOTE | 2023-07-04 13:59 | XR ---
EXAMINATION TYPE: XR chest 2V DATE OF EXAM: 07/04/2023 COMPARISON: 12/19/2022 TECHNIQUE: PA and lateral views submitted. HISTORY: Chest pain FINDINGS: The lungs are clear and there is no pneumothorax, pleural effusion, or focal pneumonia. Heart size normal and no overt failure. Osseous structures intact. Surgical clips in the abdomen. IMPRESSION: 1. No acute process.
[2023-07-04 14:08] LABS: Appearance,Urine Clear (Clear); Bilirubin,Urine Negative (Negative); Blood,Urine Negative (Negative); Color,Urine Colorless; Glucose,Urine (UA) Negative (Negative); Ketones,Urine Negative (Negative); Leukocyte Esterase,Urine Negative (Negative); Nitrite,Urine Negative (Negative); Protein,Urine Negative (Negative); Specific Gravity,Urine 1.003 (1.001-1.035); Urobilinogen,Urine <2.0 mg/dL (<2.0)
[2023-07-04 14:20] LABS: Amphetamine Screen,Urine Not Detected (NotDetected); Benzodiazepines Screen,Urine Not Detected (NotDetected); Cocaine Screen,Urine Not Detected (NotDetected); Methadone Screen, Urine Not Detected (NotDetected); Opiate Screen,Urine Detected (NotDetected); Phencyclidine Screen,Urine Not Detected (NotDetected); Tricyclic Antidepressant,Urine Not Detected (NotDetected); Urn Cannabinoid Scrn Not Detected (NotDetected)
[2023-07-04 14:21] LABS: Barbiturate Screen,Urine Detected (NotDetected); Oxycodone Screen, Urine Not Detected (NotDetected)
[2023-07-04 14:23] LABS: ALT 16 U/L (4-34); AST 20 U/L (14-36); African American GFR (CKD) >90 (>60 ml/min/1.73 sqM); Albumin 3.8 g/dL (3.5-5.0); Alkaline Phosphatase 66 U/L (38-126); Anion Gap 5 mmol/L; Blood Urea Nitrogen 5 mg/dL (7-17); Calcium 9.1 mg/dL (8.4-10.2); Carbon Dioxide 21 mmol/L (22-30); Chloride 114 mmol/L (98-107); Glucose 96 mg/dL (74-99); Non-African American GFR(CKD) >90 (>60 ml/min/1.73 sqM); Potassium 4.2 mmol/L (3.5-5.1); Sodium 140 mmol/L (137-145); Total Bilirubin 0.4 mg/dL (0.2-1.3); Total Protein 6.5 g/dL (6.3-8.2)
[2023-07-04 14:32] LABS: NT-Pro-B-Type Natriuretic Pept 32 pg/mL
[2023-07-04 14:49] LABS: Prothrombin Time 10.6 sec (10.0-12.5)
[2023-07-04 14:51] LABS: Partial Thromboplastin Time 21.6 sec (22.0-30.0)
[2023-07-04 15:21] VITALS: RESP 18
[2023-07-04] MEDS: ACETAMINOPHEN TAB 500 MG TAB PO STA (15:57)
[2023-07-04] MEDS: KETOROLAC 15 MG/ML 1 ML VIAL IVP STA (15:58)
[2023-07-04 16:41] VITALS: BP 143/88; PULSE 74
== END 2023-07-04 16:14 | disposition home or self-care (01) ==
LOC: EC 12:43
DX: R55 Syncope and collapse (principal); F17.200 Nicotine dependence, unspecified, uncomplicated; Z88.5 Allergy status to narcotic agent; Z91.018 Allergy to other foods; Z88.8 Allergy status to other drugs, medicaments and biological substances
CPT/HCPCS: 36415; 93005; 85379; 83880; 80053; 83735; 84484; 85025; 85610; 85730; 81003; 80306; 71046; 99285; 96374; J1885

== ENCOUNTER 2023-11-29 08:09 | Day surgery (SDC) | payer OTHER ==
[2023-11-29 08:35] VITALS: TEMP 96.7
[2023-11-29] MEDS: LACTATED RINGERS 1,000 ML IV SCH (08:38)
[2023-11-29] MEDS: LIDOCAINE 1% (10MG/ML) FOR IV START INTRADERMA ONE (08:39)
[2023-11-29] MEDS: IV FLUID CONTINUATION 1,000 ML IV ONE ×2 (08:39→09:04)
[2023-11-29] MEDS ORDERED: PROPOFOL 10 MG/ML 20 ML VIAL IV ONE (09:07)
[2023-11-29] MEDS ORDERED: LIDOCAINE 2% (PF) 20 MG/ML 5 ML VIAL ONE (09:07)
--- NOTE | 2023-11-29 09:20 | P.OP ---
Date of Procedure: 11/29/23 Preoperative Diagnosis: epigastric tric pain Postoperative Diagnosis: Antral gastritis Procedure(s) Performed: EGD Anesthesia: MAC Surgeon: Koko Anderson Pathology: other (Antrum) Condition: stable Disposition: PACU Description of Procedure: The patient is placed on the endoscopy table in the lateral position. She received IV sedation. The gas was placed oropharynx passed in the esophagus and stomach. Scope in place through the pylorus. The first and second portion of the duodenum appeared normal. Scope was then brought back to the antrum this appeared mildly inflamed. A biopsy was performed. The scope was then retroflexed and the Mainer of the stomach appeared normal. There was no signi ficant hiatal hernia. The GE junction was at 40 cm from the distal esophagus appeared normal. The proximal esophagus appeared noncritical withdrawn the patient.
[2023-11-29 09:36] VITALS: BP 115/82; PULSE 71; RESP 16
== END 2023-11-29 10:00 | disposition home or self-care (01) ==
LOC: ORWHC2ENDO 08:09
PROVIDERS: ATTEND Surgery
DX: K29.70 Gastritis, unspecified, without bleeding (principal); M19.90 Unspecified osteoarthritis, unspecified site; F41.9 Anxiety disorder, unspecified; K21.9 Gastro-esophageal reflux disease without esophagitis; Z86.73 Personal history of transient ischemic attack (TIA), and cerebral infarction without residual deficits; Z79.899 Other long term (current) drug therapy; Z90.49 Acquired absence of other specified parts of digestive tract; Z88.8 Allergy status to other drugs, medicaments and biological substances
CPT/HCPCS: 43239; 88305

== ENCOUNTER 2024-01-16 14:01 | Emergency (ER) | payer OTHER ==
[2024-01-16 14:08] VITALS: RESP 18
[2024-01-16] MEDS: KETOROLAC 15 MG/ML 1 ML VIAL IM STA (15:05)
--- NOTE | 2024-01-16 15:32 | XR ---
EXAMINATION TYPE: XR knee complete RT DATE OF EXAM: 01/16/2024 3:21 PM CLINICAL INDICATION: Female, 48 years old with history of Right knee pain; [facility] COMPARISON: None. TECHNIQUE: XR knee complete RT; examined in Frontal, lateral and oblique projections. FINDINGS: No evidence of any acute osseous pathology, soft tissue swelling, or joint effusion is no sagrario. IMPRESSION: 1. No acute osseous pathology. 2. Mild tricompartmental osteoarthritic changes. [facility], , 01/16/2024 3:30 PM
--- NOTE | 2024-01-16 15:32 | ED ---
Lower Extremity Injury HPI - General Chief Complaint: Extremity Injury, Lower Stated Complaint: R knee pain Time Seen by Provider: 01/16/24 14:18 Source: patient, RN notes reviewed Mode of arrival: ambulatory Limitations: no limitations - History of Present Illness Initial Comments: This is a 48-year-old female presenting with right knee burning pain (8 out of 10) x 2 weeks ago. Patient states she tripped while going up stairs striking her right knee on the concrete stair. Patient states pain radiates to the back of her knee stating it feels like her knee is "coming out of socket" and "giving out". Patient endorses use of ibuprofen with minimal relief. Patient denies fever, chills, radiculopathy, paresthesia, dyspnea, chest pain, lower extremity edema or color change. MD Complaint: knee injury Onset/Timin -: week(s) Injury: Knee: Right Type of Injury: blunt Place: home Severity scale (1-10): 8 Improves With: NSAID Worsens With: weight bearing, movement, palpation Context: fall Associated Symptoms: able to partially bear weight, ambulatory Treatments Prior to Arrival: NSAIDS - Related Data Home Medications Medication Instructions Recorded Confirmed amLODIPine [Norvasc] 10 mg PO DAILY 09/16/20 11/23/23 Nitroglycerin Sl Tabs [Nitrostat] 0.4 mg SL Q5M PRN 05/13/22 11/23/23 Gabapentin [Neurontin] 400 mg PO BID 05/15/22 11/23/23 Butalb/APAP/Caff 50-325-40Mg 1 tab PO BID PRN MDD 2 tabs 07/04/23 11/23/23 [Fioricet 50-325-40] HYDROcodone/APAP 7.5-325MG [[place] 1 tab PO Q8H PRN 07/04/23 11/23/23 7.5-325] Divalproex [Depakote] 250 mg PO BID 11/23/23 11/23/23 Previous Rx's Medication Instructions Recorded Ibuprofen [Motrin] 600 mg PO Q8HR PRN #30 tab 01/16/24 Allergies Allergy/AdvReac Type Severity Reaction Status Date / Time codeine Allergy Rash/Hives Verified 01/16/24 14:05 diphenhydramine Allergy Rash/Hives Verified 01/16/24 14:05 [From Benadryl] methylprednisolone Allergy Itching Verified 01/16/24 14:05 [From Solu-Medrol] onion Allergy Rash/Hives Verified 01/16/24 14:05 Review of Systems ROS Statement: Those systems with pertinent positive or pertinent negative responses have been documented in the HPI. ROS Other: All systems not noted in ROS Statement are negative. Past Medical History Past Medical History: Chest Pain / Angina, CVA/TIA, GERD/Reflux, Osteoarthritis (OA) Additional Past Medical History / Comment(s): Degenerative Disc Disease, , hx TIA x2 ., CTS jenifer., Hx kidney stones. "Black out seizures" from migraines. 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., hiatal hernia, hx constipation. mild weakness to left side History of Any Multi-Drug Resistant Organisms: None Reported Past Surgical History: Appendectomy, Cholecystectomy, Heart Catheterization, Hernia Repair, Hysterectomy, Tubal Ligation Additional Past Surgical History / Comment(s): PAIN CLINIC PROCEDURES., EGD Past Anesthesia/Blood Transfusion Reactions: No Reported Reaction Past Psychological History: Anxiety Smoking Status: Current every day smoker Past Alcohol Use History: None Reported Past Drug Use History: None Reported - Past Family History Mother Family Medical History: No Reported History Father Family Medical History: No Reported History Additional Family Medical History / Comment(s): Aunt and uncle mother's side with CAD s/p CABG. General Exam Limitations: no limitations General appearance: alert, in no apparent distress Head exam: Present: atraumatic, normocephalic, normal inspection Eye exam: Present: normal appearance, PERRL, EOMI. Absent: scleral icterus, conjunctival injection, periorbital swelling ENT exam: Present: normal exam, mucous membranes moist Neck exam: Present: normal inspection. Absent: tenderness, meningismus, lymphadenopathy Respiratory exam: Present: normal lung sounds bilaterally. Absent: respiratory distress, wheezes, rales, rhonchi, stridor Cardiovascular Exam: Present: regular rate, normal rhythm, normal heart sounds. Absent: systolic murmur, diastolic murmur, rubs, gallop, clicks GI/Abdominal exam: Present: soft, normal bowel sounds. Absent: distended, tenderness, guarding, rebound, rigid Extremities exam: Present: normal inspection, full ROM, tenderness (Positive right knee diffuse tenderness with minimal edema. Negative erythema, e cchymosis, crepitus or deformity. Negative Mookie's, varus valgus. Positive Katia's test with reproducible burning sensation.), normal capillary refill. Absent: pedal edema, joint swelling, calf tenderness Back exam: Present: normal inspection Neurological exam: Present: alert, oriented X3, CN II-XII intact Psychiatric exam: Present: normal affect, normal mood Skin exam: Present: warm, dry, intact, normal color. Absent: rash Course Vital Signs 01/16/24 01/16/24 14:05 16:05 Temperature 98.2 F 98.1 F Pulse Rate 88 86 Respiratory 18 18 Rate Blood Pressure 145/81 136/70 O2 Sat by Pulse 95 96 Oximetry Medical Decision Making - Medical Decision Making Was pt. sent in by a medical professional or institution (, PA, MACHINE FILLER SERVICER, urgent care, hospital, or detention...) When possible be specific @ -No Did you speak to anyone other than the patient for history (EMS, parent, family, police, friend...)? What history was obtained from this source @ -No Did you review nursing and triage notes (agree or disagree)? Why? @ -I reviewed and agree with nursing and triage notes Were old charts reviewed (outside hosp., previous admission, EMS record, old EKG, old radiological studies, urgent care reports/EKG's, detention records)? Report findings @ -No old charts were reviewed Differential Diagnosis (chest pain, altered mental status, abdominal pain women, abdominal pain men, vaginal bleeding, weakness, fever, dyspnea, syncope, headache, dizziness, GI bleed, back pain, seizure, CVA, palpatations, mental health, musculoskeletal)? @ -Patellar fracture, tibial plateau fracture, patellofemoral pain syndrome, ligament tear, meniscal tear this is not an exhaustive list EKG interpreted by me (3pts min.). @ -Not done X-rays interpreted by me (1pt min.). @ -Right knee x-ray revealed no fractures or dislocation. CT interpreted by me (1pt min.). @ -None done U/S interpreted by me (1pt. min.). @ -None done What testing was considered but not performed or refused? (CT, X-rays, U/S, labs)? Why? @ -None What meds were considered but not given or refused? Why? @ -None Did you discuss the management of the patient with other professionals (professionals i.e. , PA, MACHINE FILLER SERVICER, lab, RT, psych nurse, manager social, history tutor, teacher, special service officer, pillowcase folder)? Give summary @ -No Was smoking cessation discussed for >3mins.? @ -No Was critical care preformed (if so, how long)? @ -No Were there social determinants of health that impacted care today? How? (Homelessness, low income, unemployed, alcoholism, drug addiction, transportation, low edu. Level, literacy, decrease access to med. care, [facility], rehab)? @ -No Was there de-escalation of care discussed even if they declined (Discuss DNR or withdrawal of care, Hospice)? DNR status @ -No What co-morbidities impacted this encounter? (DM, HTN, Smoking, COPD, CAD, Cancer, CVA, ARF, Chemo, Hep., AIDS, mental health diagnosis, sleep apnea, morbid obesity)? @ -None Was patient admitted / discharged? Hospital course, mention meds given and route, prescriptions, significant lab abnormalities, going to OR and other pertinent info. @ -Discharge. Right knee x-ray was unremarkable. Toradol IM given pain with no relief noted by patient. Patient states she has received Dilaudid before without issue. Dilaudid 0.5 mg IV given some pain relief noted by patient. Knee wrapped with Andre wrap. Motrin sent to pharmacy. Advised follow-up with orthopedics for continuing care. Undiagnosed new problem with uncertain prognosis? @ -No Drug Therapy requiring intensive monitoring for toxicity (Heparin, Nitro, Insulin, Cardizem)? @ -No Were any procedures done? @ -No Diagnosis/symptom? @ -Meniscus tear Acute, or Chronic, or Acute on Chronic? @ -Acute Uncomplicated (without systemic symptoms) or Complicated (systemic symptoms)? @ -Uncomplicated Side effects of treatment? @ -No Exacerbation, Progression, or Severe Exacerbation? @ -No Poses a threat to life or bodily function? How? (Chest pain, [place], [place], pneumonia, PE, COPD, DKA, ARF, appy, cholecystitis, CVA, Diverticulitis, Homicidal, Suicidal, threat to staff... and all critical care pts) @ -No Disposition Clinical Impression: Acute meniscal tear of right knee Disposition: HOME SELF-CARE Condition: Good Instructions (If sedation given, give patient instructions): Meniscus Tear (ED) Prescriptions: Ibuprofen [Motrin] 600 mg PO Q8HR PRN #30 tab PRN Reason: Pain Is patient prescribed a controlled substance at d/c from ED?: No Referrals: Malena Milner MD [Primary Care Provider] - 1-2 days Micheal Del Cid DO [Doctor of Osteopathic Medicine] - 1-2 days Time of Disposition: 15:35
[2024-01-16] MEDS: HYDROmorphone 0.5 MG/0.5 ML SYRINGE IM STA (15:59)
[2024-01-16 16:06] VITALS: BP 136/70; PULSE 86; TEMP 98.1
== END 2024-01-16 16:05 | disposition home or self-care (01) ==
LOC: EC 14:01
CPT/HCPCS: 96372; 99283

== ENCOUNTER → 2024-02-10 | Outpatient (CLI) | payer OTHER ==
--- NOTE | 2024-02-10 17:36 | MR ---
EXAMINATION TYPE: MRI right knee without IV contrast DATE OF EXAM: 02/10/2024 COMPARISON: 01/22/2024 HISTORY: Right knee pain TECHNIQUE: Multiplanar, multisequence imaging of the right knee is performed without IV contrast. FINDINGS: MEDIAL MENISCUS: Anterior and posterior horns are intact without tear. LATERAL MENISCUS: Anterior and posterior horns are intact without tear. CRUCIATE LIGAMENTS: Small ganglion within the anterior cruciate ligament which is otherwise intact. I ntact posterior cruciate ligament. COLLATERAL LIGAMENTS: The medial collateral ligament and lateral collateral ligament complex are inta ct and unremarkable. EXTENSOR MECHANISM: Visualized quadriceps and patellar tendons are intact. EFFUSION: Minimal joint effusion. POPLITEAL CYST: No sizable Vargas's cyst. CARTILAGE: Moderate to high-grade chondral thinning throughout the medial patellar facet, largest ful l-thickness defect measuring approximately 4 x 10 mm. Trochlear cartilage is intact. Mild chondral fibrillation along the inner aspect of the middle third of the medial femoral condyle. Lateral compartment cartilage is intact. BONE MARROW SIGNAL: Negative for fracture or marrow replacement. Small degenerative subcortical cysts in the medial patellar facet. OTHER: Soft tissues are within normal limits. IMPRESSION: 1. Mild/moderate patellofemoral compartment osteoarthritis. 2. Anterior cruciate ligament ganglion without evidence of tear. 3. Minimal joint effusion. [facility], , 02/10/2024 5:33 PM
== END | disposition home or self-care (01) ==
LOC: RADMRIMAIN 12:53
PROVIDERS: ATTEND Orthopaedic Surgery
DX: M17.11 Unilateral primary osteoarthritis, right knee (principal); M67.461 Ganglion, right knee; M25.461 Effusion, right knee

== ENCOUNTER 2024-06-01 21:52 | Emergency (ER) | payer OTHER ==
[2024-06-01 22:13] VITALS: TEMP 98.3
--- NOTE | 2024-06-01 22:39 | ED ---
Abdominal Pain HPI - General Source: patient, RN notes reviewed Mode of arrival: ambulatory Limitations: no limitations <Eugene Sanders - Last Filed: 06/01/24 22:37> - General Source: patient, RN notes reviewed, old records reviewed Mode of arrival: ambulatory Limitations: no limitations - History of Present Illness MD Complaint: abdominal pain -: days(s) Location: periumbilical, epigastric Radiation: epigastric Migration to: periumbilical, epigastric Severity: severe Severity scale (1-10): 8 Quality: stabbing Consistency: constant Improves With: nothing Worsens With: nothing Context: other Associated Symptoms: nausea, vomiting Treatments Prior to Arrival: other <Joe Chacon - Last Filed: 06/02/24 22:59> - General Chief Complaint: Abdominal Pain Stated Complaint: abd pain Time Seen by Provider: 06/01/24 22:03 - History of Present Illness Initial Comments: Quick note: This is a 48-year-old female with history of GERD and a large number of abdominal surgeries presenting with abdominal pain (01/02) x 7 days. Patient states pain is in the epigastric and umbilical regions that worsens when upright. Endorses associated nausea/vomiting, diarrhea without hematemesis or hematochezia/melena. Denies fever, chills, chest pain, dyspnea, dizziness, urinary symptoms. (Eugene Sanders) This is a 48-year-old female with reflux type pain epigastric and periumbilical pain with nausea and vomiting. Patient does feel like she may have fever feverish, with chills pain is epigastric and generalized in the abdomen positive nausea no acute vomiting diarrhea as well (Joe Chacon) - Related Data Home Medications Medication Instructions Recorded Confirmed amLODIPine [Norvasc] 10 mg PO DAILY@1600 09/16/20 05/12/24 Nitroglycerin Sl Tabs [Nitrostat] 0.4 mg SL Q5M PRN 05/13/22 05/12/24 Gabapentin [Neurontin] 400 mg PO TID PRN 05/15/22 05/12/24 Divalproex [Depakote] 250 mg PO BID 11/23/23 05/12/24 Cyclobenzaprine [Flexeril] 10 mg PO BID PRN 04/24/24 05/12/24 Previous Rx's Medication Instructions Recorded HYDROcodone/APAP 10-325MG [[place] 1 tab PO Q6HR PRN 3 Days #12 tab 04/24/24 10-325] Allergies Allergy/AdvReac Type Severity Reaction Status Date / Time codeine Allergy Rash/Hives Verified 06/01/24 22:13 diphenhydramine Allergy Rash/Hives Verified 06/01/24 22:13 [From Benadryl] methylprednisolone Allergy Itching Verified 06/01/24 22:13 [From Solu-Medrol] onion Allergy Rash/Hives Verified 06/01/24 22:13 Review of Systems ROS Other: All systems not noted in ROS Statement are negative. <Eugene Sanders - Last Filed: 06/01/24 22:37> ROS Other: All systems not noted in ROS Statement are negative. <Joe Chacon - Last Filed: 06/02/24 22:59> ROS Statement: Those systems with pertinent positive or pertinent negative responses have been documented in the HPI. Past Medical History Past Medical History: Chest Pain / Angina, CVA/TIA, GERD/Reflux, Osteoarthritis (OA) Additional Past Medical History / Comment(s): Degenerative Disc Disease, , hx TIA x2 ., CTS jenifer., Hx kidney stones. "Black out seizures" from migraines. 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., hiatal hernia, hx constipation. mild weakness to left side History of Any Multi-Drug Resistant Organisms: None Reported Past Surgical History: Appendectomy, Cholecystectomy, Heart Catheterization, Hernia Repair, Hysterectomy, Tubal Ligation Additional Past Surgical History / Comment(s): PAIN CLINIC PROCEDURES., EGD Past Anesthesia/Blood Transfusion Reactions: No Reported Reaction Past Psychological History: Anxiety Smoking Status: Current every day smoker Past Alcohol Use History: None Reported Past Drug Use History: None Reported - Past Family History Mother Family Medical History: No Reported History Father Family Medical History: No Reported History Additional Family Medical History / Comment(s): Aunt and uncle mother's side with CAD s/p CABG. <Eugene Sanders - Last Filed: 06/01/24 22:37> General Exam Limitations: no limitations <Eugene Sanders - Last Filed: 06/01/24 22:37> General appearance: alert, in no apparent distress Head exam: Present: atraumatic, normocephalic, normal inspection Eye exam: Present: normal appearance, PERRL, EOMI. Absent: scleral icterus, conjunctival injection, periorbital swelling ENT exam: Present: normal exam, mucous membranes moist Neck exam: Present: normal inspection. Absent: tenderness, meningismus, lymphadenopathy Respiratory exam: Present: normal lung sounds bilaterally. Absent: respiratory distress, wheezes, rales, rhonchi, stridor Cardiovascular Exam: Present: regular rate, normal rhythm, normal heart sounds. Absent: systolic murmur, diastolic murmur, rubs, gallop, clicks GI/Abdominal exam: Present: soft, normal bowel sounds. Absent: distended, tenderness, guarding, rebound, rigid Extremities exam: Present: normal inspection, full ROM, normal capillary refill. Absent: tenderness, pedal edema, joint swelling, calf tenderness Back exam: Present: normal inspection Neurological exam: Present: alert, oriented X3, CN II-XII intact Psychiatric exam: Present: normal affect, normal mood Skin exam: Present: warm, dry, intact, normal color. Absent: rash <Joe Chacon - Last Filed: 06/02/24 22:59> - General Exam Comments Initial Comments: Visual Physical Exam Vital signs reviewed General: Well-appearing, nontoxic, no acute distress. Head: Normocephalic, atraumatic Eyes: PERRLA, EOMI ENT: Airway patent Chest: Nonlabored breathing Skin: No visual rash, normal skin tone Neuro: Alert and oriented 3 Musculoskeletal: No gross abnormalities (Eugene Sanders) Course <Joe Chacon - Last Filed: 06/02/24 22:59> Vital Signs 06/01/24 06/02/24 22:09 00:53 Temperature 98.3 F Pulse Rate 84 82 Respiratory 18 20 Rate Blood Pressure 130/88 141/86 O2 Sat by Pulse 97 97 Oximetry - Reevaluation(s) Reevaluation #1: 06/02/24 00:06 Records reviewed (Joe Chacon) Reevaluation #2: Symptoms continue to improve here in the ER (Joe Chacon) Reevaluation #3: Informed of results questions answered (Joe Chacon) Reevaluation #4: Was pt. sent in by a medical professional or institution (KATRINA Gramajo, SLD EDUCATIONAL AIDE, urgent care, hospital, or [place] health care facility...) When possible be specific @ -no Did you speak to anyone other than the patient for history (EMS, parent, family, police, friend...)? What history was obtained from this source @ -no Did you review nursing and triage notes (agree or disagree)? Why? @ -agree Are old charts reviewed (outside hosp., previous admission, EMS record, old EKG, old radiological studies, urgent care reports/EKG's, [place] health care facility records)? Report findings @ -yes Differential Diagnosis (chest pain, altered mental status, abdominal pain women, abdominal pain men, vaginal bleeding, weakness, fever, dyspnea, syncope, headache, dizziness, GI bleed, back pain, seizure, CVA, palpatations, mental health, musculoskeletal)? @ -prior EKG interpreted by me (3pts min.). @ -no X-rays interpreted by me (1pt min.). @ -no CT interpreted by me (1pt min.). @ -yes negative for acute disease U/S interpreted by me (1pt. min.). @ -no What testing was considered but not performed or refused? (CT, X-rays, U/S, labs)? Why? @ -none What meds were considered but not given or refused? Why? @ -none Did you discuss the management of the patient with other professionals (professionals i.e. KATRINA Gramajo, SLD EDUCATIONAL AIDE, lab, RT, psych nurse, adoption social worker, transformer assembler, teacher, sustainability officer, manager of case management)? Give summary @ -no Was smoking cessation discussed for >3mins.? @ -no Was critical care preformed (if so, how long)? @ -no Were there social determinants of health that impacted care today? How? (Homelessness, low income, unemployed, alcoholism, drug addiction, transportation, low edu. Level, literacy, decrease access to med. care, usp, rehab)? @ -none Was there de-escalation of care discussed even if they declined (Discuss DNR or withdrawal of care, Hospice)? DNR status @ -no What co-morbidities impacted this encounter? (DM, HTN, Smoking, COPD, CAD, Cancer, CVA, ARF, Chemo, Hep., AIDS, mental health diagnosis, sleep apnea, morbid obesity)? @ -none Was patient admitted / discharged? Hospital course, mention meds given and route, prescriptions, significant lab abnormalities, going to OR and other pertinent info. @ -48 female to ER for recurrent abdominal pain, body aches and pains currently positive for influenza CT scan and lab testing is negative Undiagnosed new problem with uncertain prognosis? @ -no Drug Therapy requiring intensive monitoring for toxicity (Heparin, Nitro, Insulin, Cardizem)? @ -no Were any procedures done? @ -no Diagnosis/symptom? @ -Influenza and abdominal pain Acute, or Chronic, or Acute on Chronic? @ -Acute Uncomplicated (without systemic symptoms) or Complicated (systemic symptoms)? @ -Complicated Side effects of treatment? @ -no Exacerbation, Progression, or Severe Exacerbation? @ -exacerbation Poses a threat to life or bodily function? How? (Chest pain, [place], [place], pneumonia, PE, COPD, DKA, ARF, appy, cholecystitis, CVA, Diverticulitis, Homicidal, Suicidal, threat to staff... and all critical care pts) @ -no (Joe Chacon) Reevaluation #5: Differential Abdominal Pain Women: Appendicitis, Cholecystitis, diverticulosis, ischemic bowel, pancreatitis, hepatitis, UTI, gastroenteritis, AAA, incarcerated hernia, bowel obstruction, constipation, inflammatory bowel, hepatitis, peptic ulcer disease, splenic infarction, perforated viscus, vulvitis, ovarian torsion, PID, kidney stone, placenta abruption, this is not meant to be an all-inclusive list (Joe Chacon) Medical Decision Making <Eugene Sanders - Last Filed: 06/01/24 22:37> - Lab Data Result diagrams: 06/01/24 23:05 06/01/24 23:05 - Radiology Data Radiology results: report reviewed (CT abdomen pelvis is negative for acute disease), image reviewed <Joe Chacon - Last Filed: 06/02/24 22:59> - Medical Decision Making I completed the quick note portion of this chart signed EMMANUEL Gonzalez (Eugene Sanders) 48 female to ER for abdominal pain. Patient does have history of abdominal pain and revisits here in the ER coming in with normal lab testing, normal CT scan and positive for influenza, patient symptoms are improved here in the ER and okay for discharge home (Joe Chacon) - Lab Data Lab Results 06/01/24 06/01/24 06/01/24 Range/Units 23:05 23:05 23:05 WBC 9.7 (3.8-10.6) k/uL RBC 4.65 (3.80-5.40) m/uL Hgb 14.8 (11.4-16.0) gm/dL Hct 45.7 (34.0-46.0) % MCV 98.2 (80.0-100.0) fL MCH 31.9 (25.0-35.0) pg MCHC 32.5 (31.0-37.0) g/dL RDW 13.1 (11.5-15.5) % Plt Count 275 (150-450) k/uL MPV 9.6 Neutrophils % 59 % Lymphocytes % 29 % Monocytes % 6 % Eosinophils % 4 % Basophils % 1 % Neutrophils # 5.7 (1.3-7.7) k/uL Lymphocytes # 2.8 (1.0-4.8) k/uL Monocytes # 0.6 (0-1.0) k/uL Eosinophils # 0.4 (0-0.7) k/uL Basophils # 0.1 (0-0.2) k/uL Sodium 138 (137-145) mmol/L Potassium 3.9 (3.5-5.1) mmol/L Chloride 105 (98-107) mmol/L Carbon Dioxide 21 L (22-30) mmol/L Anion Gap 12 mmol/L BUN 7 (7-17) mg/dL Creatinine 0.61 (0.52-1.04) mg/dL Est GFR (CKD-EPI)AfAm >90 (>60 ml/min/1.73 sqM) Est GFR (CKD-EPI)NonAf >90 (>60 ml/min/1.73 sqM) Glucose 89 (74-99) mg/dL Plasma Lactic Acid Mikael 1.1 (0.7-2.0) mmol/L Calcium 9.3 (8.4-10.2) mg/dL Total Bilirubin 0.5 (0.2-1.3) mg/dL AST 20 (14-36) U/L ALT 15 (4-34) U/L Alkaline Phosphatase 71 (38-126) U/L Total Protein 7.6 (6.3-8.2) g/dL Albumin 4.4 (3.5-5.0) g/dL Lipase 133 (23-300) U/L Urine Color Urine Appearance (Clear) Urine pH (5.0-8.0) Ur Specific [place] (1.001-1.035) Urine Protein (Negative) Urine Glucose (UA) (Negative) Urine Ketones (Negative) Urine Blood (Negative) Urine Nitrite (Negative) Urine Bilirubin (Negative) Urine Urobilinogen (<2.0) mg/dL Ur Leukocyte Esterase (Negative) Urine RBC (0-5) /hpf Urine WBC (0-5) /hpf Ur Squamous Epith Cells (0-4) /hpf Urine Bacteria (None) /hpf Hyaline Casts (0-2) /lpf Granular Casts (0) /lpf Urine Mucus (None) /hpf Influenza Type A (PCR) (Not Detectd) Influenza Type B (PCR) (Not Detectd) RSV (PCR) (Not Detectd) SARS-CoV-2 (PCR) (Not Detectd) 06/01/24 06/01/24 Range/Units 23:05 23:26 WBC (3.8-10.6) k/uL RBC (3.80-5.40) m/uL Hgb (11.4-16.0) gm/dL Hct (34.0-46.0) % MCV (80.0-100.0) fL MCH (25.0-35.0) pg MCHC (31.0-37.0) g/dL RDW (11.5-15.5) % Plt Count (150-450) k/uL MPV Neutrophils % % Lymphocytes % % Monocytes % % Eosinophils % % Basophils % % Neutrophils # (1.3-7.7) k/uL Lymphocytes # (1.0-4.8) k/uL Monocytes # (0-1.0) k/uL Eosinophils # (0-0.7) k/uL Basophils # (0-0.2) k/uL Sodium (137-145) mmol/L Potassium (3.5-5.1) mmol/L Chloride (98-107) mmol/L Carbon Dioxide (22-30) mmol/L Anion Gap mmol/L BUN (7-17) mg/dL Creatinine (0.52-1.04) mg/dL Est GFR (CKD-EPI)AfAm (>60 ml/min/1.73 sqM) Est GFR (CKD-EPI)NonAf (>60 ml/min/1.73 sqM) Glucose (74-99) mg/dL Plasma Lactic Acid Mikael (0.7-2.0) mmol/L Calcium (8.4-10.2) mg/dL Total Bilirubin (0.2-1.3) mg/dL AST (14-36) U/L ALT (4-34) U/L Alkaline Phosphatase (38-126) U/L Total Protein (6.3-8.2) g/dL Albumin (3.5-5.0) g/dL Lipase (23-300) U/L Urine Color Yellow Urine Appearance Clear (Clear) Urine pH 6.0 (5.0-8.0) Ur Specific [place] 1.025 (1.001-1.035) Urine Protein 1+ H (Negative) Urine Glucose (UA) Negative (Negative) Urine Ketones Negative (Negative) Urine Blood Trace H (Negative) Urine Nitrite Negative (Negative) Urine Bilirubin Negative (Negative) Urine Urobilinogen <2.0 (<2.0) mg/dL Ur Leukocyte Esterase Negative (Negative) Urine RBC 1 (0-5) /hpf Urine WBC 7 H (0-5) /hpf Ur Squamous Epith Cells 1 (0-4) /hpf Urine Bacteria Rare H (None) /hpf Hyaline Casts 4 H (0-2) /lpf Granular Casts 1 (0) /lpf Urine Mucus Rare H (None) /hpf Influenza Type A (PCR) Detected A (Not Detectd) Influenza Type B (PCR) Not Detected (Not Detectd) RSV (PCR) Not Detected (Not Detectd) SARS-CoV-2 (PCR) Not Detected (Not Detectd) Disposition <Eugene Sanders - Last Filed: 06/01/24 22:37> Is patient prescribed a controlled substance at d/c from ED?: No Time of Disposition: 00:00 <Joe Chacon - Last Filed: 06/02/24 22:59> Clinical Impression: Abdominal colic, Influenza A Disposition: HOME SELF-CARE Condition: Good Instructions (If sedation given, give patient instructions): Influenza (ED), Abdominal Pain (ED) Referrals: Malena Milner MD [STAFF PHYSICIAN] - 1-2 days
[2024-06-01 23:40] LABS: Appearance,Urine Clear (Clear); Bacteria,Urine Rare /hpf; Bilirubin,Urine Negative (Negative); Blood,Urine Trace (Negative); Color,Urine Yellow; Glucose,Urine (UA) Negative (Negative); Granular Casts,Urine 1 /lpf (0); Hyaline Casts,Urine 4 /lpf (0-2); Ketones,Urine Negative (Negative); Leukocyte Esterase,Urine Negative (Negative); Mucus,Urine Rare /hpf; Nitrite,Urine Negative (Negative); Protein,Urine 1+ (Negative); RBC,Urine 1 /hpf (0-5); Specific Gravity,Urine 1.025 (1.001-1.035); Squamous Epithelial Cell,Urine 1 /hpf (0-4); Urobilinogen,Urine <2.0 mg/dL (<2.0); WBC,Urine 7 /hpf (0-5)
[2024-06-02] LABS: ALT 15 U/L (4-34); AST 20 U/L (14-36); African American GFR (CKD) >90 (>60 ml/min/1.73 sqM); Albumin 4.4 g/dL (3.5-5.0); Alkaline Phosphatase 71 U/L (38-126); Anion Gap 12 mmol/L; Blood Urea Nitrogen 7 mg/dL (7-17); Calcium 9.3 mg/dL (8.4-10.2); Carbon Dioxide 21 mmol/L (22-30); Chloride 105 mmol/L (98-107); Glucose 89 mg/dL (74-99); Lipase 133 U/L (23-300); Non-African American GFR(CKD) >90 (>60 ml/min/1.73 sqM); Potassium 3.9 mmol/L (3.5-5.1); Sodium 138 mmol/L (137-145); Total Bilirubin 0.5 mg/dL (0.2-1.3); Total Protein 7.6 g/dL (6.3-8.2)
[2024-06-02 00:03] LABS: Influenza A Detected (Not Detectd); Influenza B Not Detected (Not Detectd); RSV Not Detected (Not Detectd)
[2024-06-02 00:05] LABS: Basophils # (A) 0.1 k/uL (0-0.2); Basophils % (A) 1 %; Eosinophils # (A) 0.4 k/uL (0-0.7); Eosinophils % (A) 4 %; HCT 45.7 % (34.0-46.0); HGB 14.8 gm/dL (11.4-16.0); Lymphocytes # (A) 2.8 k/uL (1.0-4.8); Lymphocytes % (A) 29 %; MCH 31.9 pg (25.0-35.0); MCHC 32.5 g/dL (31.0-37.0); MCV 98.2 fL (80.0-100.0); Mean Platelet Volume 9.6; Monocytes # (A) 0.6 k/uL (0-1.0); Monocytes % (A) 6 %; Neutrophils # (A) 5.7 k/uL (1.3-7.7); Neutrophils % (A) 59 %; Platelet Count 275 k/uL (150-450); RBC 4.65 m/uL (3.80-5.40); RDW 13.1 % (11.5-15.5); WBC 9.7 k/uL (3.8-10.6)
--- NOTE | 2024-06-02 00:20 | CT ---
EXAM: CT Abdomen and Pelvis With Intravenous Contrast CLINICAL HISTORY: ITS.REASON CT Reason: Severe abdominal pain TECHNIQUE: Axial computed tomography images of the abdomen and pelvis with intravenous contrast. CTDI is 24 mGy and DLP is 1045 mGy-cm. This CT exam was performed using one or more of the following dose reduction techniques: automated exposure control, adjustment of the mA and/or kV according to patient size, and/or use of iterative reconstruction technique. COMPARISON: 05/08/2012. FINDINGS: Lung bases: COPD. Minimal subsegmental atelectasis at the lung bases. Heart: Heart is normal in size. Mediastinum: Small hiatal hernia and probable distal esophagitis. ABDOMEN: Liver: Fatty liver. Gallbladder and bile ducts: Status post cholecystectomy. No ductal dilation. Pancreas: See below. Spleen: Spleen enhances uniformly. Adrenals: The adrenal glands, the head, body, tail of the pancreas are unremarkable. Kidneys and ureters: On delayed imaging, the renal collecting systems are not well-visualized. No renal calculus or hydronephrosis. Stomach and bowel: Moderate quantity of ingested material in the stomach. Moderate quantity of stool throughout the colon. Diverticulosis without diverticulitis. No obstruction. PELVIS: Appendix: No findings to suggest acute appendicitis. Bladder: The bladder is underdistended. Reproductive: Status post hysterectomy. ABDOMEN and PELVIS: Intraperitoneal space: Unremarkable. No free air. No significant fluid collection. Bones/joints: No acute fracture. No dislocation. Soft tissues: Ischiorectal fat is clean. Vasculature: Portal vein is patent. Flow is noted within the celiac, SMA, the renal arteries, and MUNA. No abdominal aortic aneurysm. Lymph nodes: Unremarkable. No retroperitoneal lymphadenopathy. IMPRESSION: 1. Post surgical changes about the gastroesophageal junction. 2. Small hiatal hernia and distal esophagitis. 3. Fatty liver. 4. Status post cholecystectomy. 5. No renal calculus or hydronephrosis. 6. No bowel obstruction. 7. Diverticulosis without diverticulitis. 8. Status post hysterectomy.
[2024-06-02] MEDS: ONDANSETRON 4 MG/2 ML VIAL IVP STA (00:48)
[2024-06-02] MEDS: MORPHINE SULFATE 4 MG/ML SYRINGE IVP STA (00:48)
[2024-06-02] MEDS: DEXAMETHASONE SOD PHOSPHATE 10 MG/ML 1 ML VIAL IVP STA (00:48)
[2024-06-02] MEDS: KETOROLAC 15 MG/ML 1 ML VIAL IVP STA (00:49)
[2024-06-02 00:54] VITALS: BP 141/86; PULSE 82; RESP 20
== END 2024-06-02 00:57 | disposition home or self-care (01) ==
LOC: EC 21:52
DX: J10.1 Influenza due to other identified influenza virus with other respiratory manifestations (principal); R10.84 Generalized abdominal pain; F17.200 Nicotine dependence, unspecified, uncomplicated; Z88.8 Allergy status to other drugs, medicaments and biological substances; Z88.6 Allergy status to analgesic agent; Z91.018 Allergy to other foods; Z86.73 Personal history of transient ischemic attack (TIA), and cerebral infarction without residual deficits
CPT/HCPCS: 36415; 80053; 83605; 83690; 85025; 81001; 87636; 74177; 99284; 96374; 96375 ×3; J2270; J1100; J2405; J1885; Q9967

== ENCOUNTER 2024-10-11 13:24 | Emergency (ER) | payer OTHER ==
[2024-10-11 13:30] VITALS: RESP 20
--- NOTE | 2024-10-11 14:10 | ED ---
General Adult HPI - General Chief complaint: Extremity Injury, Upper Stated complaint: Left Hand Injury Time Seen by Provider: 10/11/24 13:34 Source: patient, RN notes reviewed Mode of arrival: ambulatory Limitations: no limitations - History of Present Illness Initial comments: 48-year-old female presents to the emergency department for evaluation of left hand pain. Patient states that she hit her hand on a wall 3 days ago. She notes that since then she has had pain in the dorsal aspect of the hand and radiates into the wrist. She notes that the pain is worse with movement of the thumb. She denies any other injury. - Related Data Home Medications Medication Instructions Recorded Confirmed amLODIPine [Norvasc] 10 mg PO DAILY@1600 09/16/20 05/12/24 Nitroglycerin Sl Tabs [Nitrostat] 0.4 mg SL Q5M PRN 05/13/22 05/12/24 Gabapentin [Neurontin] 400 mg PO TID PRN 05/15/22 05/12/24 Divalproex [Depakote] 250 mg PO BID 11/23/23 05/12/24 Cyclobenzaprine [Flexeril] 10 mg PO BID PRN 04/24/24 05/12/24 Previous Rx's Medication Instructions Recorded HYDROcodone/APAP 10-325MG [[place] 1 tab PO Q6HR PRN 3 Days #12 tab 04/24/24 10-325] Allergies Allergy/AdvReac Type Severity Reaction Status Date / Time codeine Allergy Rash/Hives Verified 06/01/24 22:13 diphenhydramine Allergy Rash/Hives Verified 06/01/24 22:13 [From Benadryl] methylprednisolone Allergy Itching Verified 06/01/24 22:13 [From Solu-Medrol] onion Allergy Rash/Hives Verified 06/01/24 22:13 Review of Systems ROS Statement: Those systems with pertinent positive or pertinent negative responses have been documented in the HPI. ROS Other: All systems not noted in ROS Statement are negative. Past Medical History Past Medical History: Chest Pain / Angina, CVA/TIA, GERD/Reflux, Osteoarthritis (OA) Additional Past Medical History / Comment(s): Degenerative Disc Disease, , hx TIA x2 ., CTS jenifer., Hx kidney stones. "Black out seizures" from migraines. 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., hiatal hernia, hx constipation. mild weakness to left side History of Any Multi-Drug Resistant Organisms: None Reported Past Surgical History: Appendectomy, Cholecystectomy, Heart Catheterization, Hernia Repair, Hysterectomy, Tubal Ligation Additional Past Surgical History / Comment(s): PAIN CLINIC PROCEDURES., EGD. aortic valve repair Past Anesthesia/Blood Transfusion Reactions: No Reported Reaction Past Psychological History: Anxiety Smoking Status: Current every day smoker Past Alcohol Use History: None Reported Past Drug Use History: None Reported - Past Family History Mother Family Medical History: No Reported History Father Family Medical History: No Reported History Additional Family Medical History / Comment(s): Aunt and uncle mother's side with CAD s/p CABG. General Exam Limitations: no limitations General appearance: alert, in no apparent distress Head exam: Present: atraumatic, normocephalic, normal inspection Eye exam: Present: normal appearance, PERRL, EOMI. Absent: scleral icterus, conjunctival injection, periorbital swelling Extremities exam: Present: full ROM, tenderness, normal capillary refill, other (Radial pulses 2+, scaphoid tenderness). Absent: pedal edema, joint swelling, calf tenderness Neurological exam: Present: alert, oriented X3 Psychiatric exam: Present: normal affect, normal mood Skin exam: Present: warm, dry, intact, normal color. Absent: rash Course Vital Signs 10/11/24 10/11/24 13:26 15:01 Temperature 97.9 F 98.0 F Pulse Rate 78 76 Respiratory 20 20 Rate Blood Pressure 155/91 146/80 O2 Sat by Pulse 98 99 Oximetry Procedures - Orthopedic Splinting/Casting Injury #1 Side: left Upper Extremity Immobilizer: thumb spica Medical Decision Making - Medical Decision Making Was pt. sent in by a medical professional or institution (, PA, [facility] [employer], urgent care, hospital, or longterm...) When possible be specific @ -No Did you speak to anyone other than the patient for history (EMS, parent, family, police, friend...)? What history was obtained from this source @ -No Did you review nursing and triage notes (agree or disagree)? Why? @ -I reviewed and agree with nursing and triage notes Were old charts reviewed (outside hosp., previous admission, EMS record, old EKG, old radiological studies, urgent care reports/EKG's, longterm records)? Report findings @ -No old charts were reviewed Differential Diagnosis (chest pain, altered mental status, abdominal pain women, abdominal pain men, vaginal bleeding, weakness, fever, dyspnea, syncope, headache, dizziness, GI bleed, back pain, seizure, CVA, palpatations, mental health, musculoskeletal)? @ -Differential Musculoskeletal Muscular strain, contusion, ligament sprain, fracture, arthritis, septic arthritis, bursitis, cellulitis, muscle spasm, nerve compression, DVT, arterial occlusion, herpes zoster, electrolyte abnormality, tumor.... This is not meant to be in all inclusive list EKG interpreted by me (3pts min.). @ -None X-rays interpreted by me (1pt min.). @ -X-ray of the hand reveals no evidence of acute fracture CT interpreted by me (1pt min.). @ -None done U/S interpreted by me (1pt. min.). @ -None done What testing was considered but not performed or refused? (CT, X-rays, U/S, labs)? Why? @ -None What meds were considered but not given or refused? Why? @ -None Did you discuss the management of the patient with other professionals (professionals i.e. , PA, [employer], lab, RT, psych nurse, social scientist, director of income tax, teacher, labor relations officer, director case)? Give summary @ -No Was smoking cessation discussed for >3mins.? @ -No Was critical care preformed (if so, how long)? @ -No Were there social determinants of health that impacted care today? How? (Homelessness, low income, unemployed, alcoholism, drug addiction, transportation, low edu. Level, literacy, decrease access to med. care, retirement, rehab)? @ -No Was there de-escalation of care discussed even if they declined (Discuss DNR or withdrawal of care, Hospice)? DNR status @ -No What co-morbidities impacted this encounter? (DM, HTN, Smoking, COPD, CAD, Cancer, CVA, ARF, Chemo, Hep., AIDS, mental health diagnosis, sleep apnea, morbid obesity)? @ -None Was patient admitted / discharged? Hospital course, mention meds given and route, prescriptions, significant lab abnormalities, going to OR and other pertinent info. @ -Discharge. Patient presented emergency department for evaluation of left hand injury. X-rays obtained revealing no evidence of acute fracture, patient has anatomical snuffbox tenderness and therefore will be placed in a splint. She is advised orthopedic follow-up. She is understanding agreeable plan. Patient stable at time of discharge. Case discussed with Dr. Hsieh Undiagnosed new problem with uncertain prognosis? @ -No Drug Therapy requiring intensive monitoring for toxicity (Heparin, Nitro, Insulin, Cardizem)? @ -No Were any procedures done? @ -Splinting Diagnosis/symptom? @ -Scaphoid tenderness, hand injury Acute, or Chronic, or Acute on Chronic? @ -Acute Uncomplicated (without systemic symptoms) or Complicated (systemic symptoms)? @ -Acute uncomplicated Side effects of treatment? @ -No Exacerbation, Progression, or Severe Exacerbation? @ -No Poses a threat to life or bodily function? How? (Chest pain, [place], [place], pneumonia, PE, COPD, DKA, ARF, appy, cholecystitis, CVA, Diverticulitis, Homicidal, Suicidal, threat to staff... and all critical care pts) @ -No Disposition Clinical Impression: Hand sprain, Tenderness of anatomical snuffbox Disposition: HOME SELF-CARE Condition: Stable Instructions (If sedation given, give patient instructions): Hand Sprain (ED) Additional Instructions: Please follow up with orthopedics. Return to the emergency department for new or worsening symptoms. Is patient prescribed a controlled substance at d/c from ED?: No Referrals: Cornelius Adame MD [Primary Care Provider] - 1-2 days Gómez Mock MD [STAFF PHYSICIAN] - 1-2 days
[2024-10-11] MEDS: KETOROLAC 15 MG/ML 1 ML VIAL IM STA (14:12)
--- NOTE | 2024-10-11 14:35 | XR ---
EXAMINATION TYPE: XR hand complete LT DATE OF EXAM: 10/11/2024 2:27 PM COMPARISON: Right hand radiograph 11/28/2018. CLINICAL INDICATION: Female, 48 years old with history of pain; PHH, pain TECHNIQUE: XR hand complete LT Frontal, lateral and oblique views were obtained. FINDINGS: Carpal alignment appears maintained. No definite acute fracture or dislocation. Interphalan geal degenerative osteophytic changes with marginal osteophyte formation associated joint space loss. No unexpected radiopaque foreign body. IMPRESSION: 1. No acute osseous pathology. 2. Multifocal osteoarthrosis throughout the joints of the hand. [facility], , 10/11/2024 2:32 PM
[2024-10-11 15:02] VITALS: BP 146/80; PULSE 76; TEMP 98
== END 2024-10-11 15:03 | disposition home or self-care (01) ==
LOC: EC 13:24
DX: S63.602A Unspecified sprain of left thumb, initial encounter (principal); F17.200 Nicotine dependence, unspecified, uncomplicated; Z91.018 Allergy to other foods; Z88.5 Allergy status to narcotic agent; Z88.8 Allergy status to other drugs, medicaments and biological substances; W22.01XA Walked into wall, initial encounter
CPT/HCPCS: 73130; 99283; 96372; 29125; J1885